=== PATIENT | female | born 1945 | race Caucasian/White ===

== ENCOUNTER 2021-11-14 15:17 | Outpatient (CLI) | payer MEDICARE, BC, SELFPAY ==
[2021-11-14 16:23] LABS: Basophils Percent Auto 0.5 % (0.0-3.0); Eosinophils Percent Auto 2.2 % (0.0-7.0); Hemoglobin* 10.3 gm/dL (12.0-16.0); Immature Granulocytes Abs Auto 0.11 K/uL (0.00-0.30); Lymphocytes Percent Auto 14.2 % (20-44); Mean Corpuscular HGB Conc 30 gm/dL (32-36); Mean Corpuscular Hemoglobin 28 pg (26-34); Mean Corpuscular Volume 93 fL (80-100); Monocytes Percent Auto 11.4 % (0.0-11.0); Neutrophils Percent Auto 70.8 % (42.0-72.0); Platelet Count* 349 K/uL (140-440); RDW Coefficient of Variation % 16.8 % (11.5-15.5); Red Blood Count 3.64 m/uL (4.00-5.20); White Blood Count* 11.99 K/uL (4.50-11.00)
[2021-11-14 16:39] LABS: Creatinine* 0.8 mg/dL (0.5-1.5); Estimated Glomerular Filt Rate 75.37
[2021-11-14 16:40] LABS: Aspartate Amino Transferase* 30 U/L (12-35); Slide Review Reflex No
[2021-11-18 13:37] LABS: Complement Component 3 107 mg/dL (90-180); Complement Component 4 7 mg/dL (10-40)
[2021-11-19 00:15] LABS: Complement Activity Total 56.2 U/mL (38.7-89.9)
== END 2021-11-14 15:18 | disposition home or self-care (01) ==
LOC: LAB 15:22
PROVIDERS: PCP Family Medicine; Visit Provider Family Medicine
DX: M06.4 Inflammatory polyarthropathy (principal)
CPT/HCPCS: 36415; 82565; 84450; 85025; 86160; 86162; 86225

== ENCOUNTER 2022-01-13 19:07 | Outpatient (CLI) | payer MEDICARE, BC, SELFPAY | END 2022-01-13 19:08 | disposition home or self-care (01) | LOC: NFLDREF 19:08 | PROVIDERS: PCP Family Medicine; Visit Provider Physician Assistant | DX: R10.9 Unspecified abdominal pain (principal) | CPT/HCPCS: 87086 ==

== ENCOUNTER 2022-02-10 16:06 | Outpatient (CLI) | payer MEDICARE, BC, SELFPAY ==
[2022-02-10 16:21] LABS: Albumin* 3.6 g/dL (3.3-5.0); Chloride* 102 mmol/L (96-114); Sodium* 135 mmol/L (135-149)
[2022-02-10 16:23] LABS: Bilirubin Total* 0.4 mg/dL (0.1-1.5); Carbon Dioxide* 27 mmol/L (20-32); Cholesterol* 121 mg/dL (90-199); Creatinine* 0.8 mg/dL (0.5-1.5); Estimated Glomerular Filt Rate 75 ml/min; Total Protein* 5.7 g/dL (6.0-8.3)
[2022-02-10 16:24] LABS: Alanine Aminotransferase* 20 U/L (4-35); Alkaline Phosphatase* 66 U/L (40-150); Aspartate Amino Transferase* 36 U/L (12-35); Blood Urea Nitrogen* 22 mg/dL (7-30); Calcium* 9.1 mg/dL (8.4-10.6); Glucose* 79 mg/dL (60-115); HDL Cholesterol* 60 mg/dL (>=50); LDL Cholesterol Calculated 44 mg/dL (<100); Triglycerides* 87 mg/dL (40-149)
[2022-02-10 17:41] LABS: Free T4 Free Thyroxine* 0.94 ng/dL (0.70-1.85)
== END 2022-02-10 16:07 | disposition home or self-care (01) ==
PROVIDERS: PCP Family Medicine; Visit Provider Family Medicine
DX: Z00.00 Encounter for general adult medical examination without abnormal findings (principal); E78.5 Hyperlipidemia, unspecified; E03.9 Hypothyroidism, unspecified; R53.1 Weakness; E87.6 Hypokalemia; R60.0 Localized edema; F32.A Depression, unspecified
CPT/HCPCS: 36415; 80053; 80061; 82565; 84439; 84443; 84450; 85025

== ENCOUNTER 2022-02-10 16:29 | Outpatient (RCR) | payer MEDICARE, BC, SELFPAY ==
[2022-02-10 20:45] LABS: Aspartate Amino Transferase* 35 U/L (12-35); Creatinine* 0.8 mg/dL (0.5-1.5); Estimated Glomerular Filt Rate 75 ml/min
[2022-02-10 21:05] LABS: Hematocrit 34.1 % (33.0-51.0); Hemoglobin* 10.2 gm/dL (12.0-16.0); Mean Corpuscular Hemoglobin 28 pg (26-34); Red Blood Count 3.61 m/uL (4.00-5.20); White Blood Count* 7.92 K/uL (4.50-11.00)
[2022-02-10 21:06] LABS: Basophils Percent Auto 0.8 % (0.0-3.0); Eosinophils Percent Auto 2.8 % (0.0-7.0); Lymphocytes Percent Auto 28.2 % (20-44); Mean Corpuscular HGB Conc 30 gm/dL (32-36); Mean Corpuscular Volume 95 fL (80-100); Monocytes Percent Auto 13.6 % (0.0-11.0); Neutrophils Percent Auto 54.1 % (42.0-72.0); Platelet Count* 271 K/uL (140-440); RDW Coefficient of Variation % 18.8 % (11.5-15.5)
[2022-02-10 21:07] LABS: Immature Granulocytes Pct Auto 0.5 %; Slide Review Reflex No
[2022-06-03 17:30] LABS: Basophils Percent Auto 0.4 % (0.0-3.0); Hematocrit 36.9 % (33.0-51.0); Hemoglobin* 11.2 gm/dL (12.0-16.0); Immature Granulocytes Pct Auto 0.2 %; Lymphocytes Percent Auto 14.2 % (20-44); Mean Corpuscular HGB Conc 30 gm/dL (32-36); Mean Corpuscular Hemoglobin 29 pg (26-34); Mean Corpuscular Volume 94 fL (80-100); Monocytes Percent Auto 11.1 % (0.0-11.0); Neutrophils Percent Auto 72.1 % (42.0-72.0); Platelet Count* 400 K/uL (140-440); RDW Coefficient of Variation % 18.8 % (11.5-15.5); Red Blood Count 3.92 m/uL (4.00-5.20); White Blood Count* 13.09 K/uL (4.50-11.00)
[2022-06-03 17:39] LABS: Slide Review Reflex No
[2022-06-03 19:01] LABS: Aspartate Amino Transferase* 70 U/L (12-35); Creatinine* 0.7 mg/dL (0.5-1.5); Estimated Glomerular Filt Rate 88 ml/min
[2022-09-17 17:19] LABS: Basophils Absolute Auto 0.04 K/uL (0.00-0.30); Basophils Percent Auto 0.4 % (0.0-3.0); Eosinophils Absolute Auto 0.24 K/uL (0.00-0.50); Eosinophils Percent Auto 2.7 % (0.0-7.0); Hematocrit 37.7 % (33.0-51.0); Hemoglobin* 11.2 gm/dL (12.0-16.0); Immature Granulocytes Abs Auto 0.01 K/uL (0.00-0.30); Immature Granulocytes Pct Auto 0.1 %; Lymphocytes Absolute Auto 1.83 K/uL (0.90-2.90); Lymphocytes Percent Auto 20.6 % (20-44); Mean Corpuscular HGB Conc 30 gm/dL (32-36); Mean Corpuscular Hemoglobin 29 pg (26-34); Mean Corpuscular Volume 99 fL (80-100); Monocytes Percent Auto 9.4 % (0.0-11.0); Neutrophils Absolute Auto 5.94 K/uL (1.7-7.0); Neutrophils Percent Auto 66.8 % (42.0-72.0); Platelet Count* 262 K/uL (140-440); RDW Coefficient of Variation % 18.4 % (11.5-15.5); Red Blood Count 3.81 m/uL (4.00-5.20)
[2022-09-17 17:27] LABS: Aspartate Amino Transferase* 46 U/L (12-35); Creatinine* 0.7 mg/dL (0.5-1.5); Estimated Glomerular Filt Rate 88 ml/min
[2022-09-17 17:36] LABS: Slide Review Reflex No
== END 2023-02-06 06:28 | disposition home or self-care (01) ==
LOC: LAB 16:29
PROVIDERS: PCP Family Medicine
DX: Z79.899 Other long term (current) drug therapy (principal); M06.4 Inflammatory polyarthropathy
CPT/HCPCS: 36415; 82565; 84450; 85025

== ENCOUNTER 2022-05-06 22:44 | Emergency (ER) | payer MEDICARE, BC, SELFPAY ==
[2022-05-06 23:14] LABS: Appearance Urine Clear (Clear); Bilirubin Urine Negative (Negative); Blood Urine 1+ (Negative); Color Urine Yellow (Yellow); Glucose Urine Negative (Negative); Ketones Urine Negative (Negative); Leukocyte Esterase Urine 2+ (Negative); Nitrite Urine Negative (Negative); Protein Urine Negative (Negative); Urobilinogen Urine 0.2 (0.2-1.0); pH Urine 7.5 (5.0-8.5)
[2022-05-06 23:20] VITALS: BP 142/84; PULSE 94; RESP 20; TEMP 36.7; O2SAT 99; BMI 30.3
[2022-05-06 23:31] LABS: Bacteria Urine Few; Mucus Urine Few; RBC Urine 0-2 (0-2); Squamous Epithelial Cell Urine Few (None-Few)
[2022-05-07 00:05] VITALS: BP 142/59; PULSE 93; RESP 18; O2SAT 94
--- NOTE | 2022-05-07 00:08 | ED.GENADULT ---
HPI - General Adult General Date Seen: 05/07/22 Chief complaint: Urogenital Problems, Female Stated complaint: UTI,sore left leg. Time Seen by Provider: 05/06/22 22:57 Source: patient and family Mode of arrival: ambulatory Limitations: no limitations History of Present Illness HPI narrative: Patient is a delightful 77-year-old female who suffers from rheumatoid arthritis and lupus who presents here with 2 problems 1 is some dysuria and frequency with urination and problem 2. He has some redness on her legs left greater than right, she has noted this for the last 3-4 days at least the redness, along with the dysuria and frequency she has not had any fevers or chills, she is worried that she may have cellulitis of her left leg. She is on Coumadin and is therapeutic with her last INR approximately 1 week ago at 2.4. 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 She has never had a DVT while she has been on Coumadin however. She denies any shortness of breath chest pain nausea vomiting, or anything else. She reports here with her daughter. Related Data Home Medications Medication Instructions Recorded Confirmed ascorbic acid (vitamin C) 500 mg 500 mg PO DAILY 01/13/22 02/12/22 tablet flaxseed oil 1,000 mg capsule 1 mg PO DAILY 01/13/22 02/12/22 folic acid 1 mg tablet 1 mg PO .Bedtime 01/13/22 02/12/22 hydroxychloroquine 200 mg tablet mg PO .Daily At 12:00PM 01/13/22 02/12/22 melatonin 3 mg capsule 3 mg PO .Bedtime as needed PRN 01/13/22 02/12/22 prednisone 1 mg tablet 7 mg PO DAILY 01/13/22 02/12/22 ascorbate calcium (vitamin C) 500 500 mg PO QDAY 02/12/22 02/12/22 mg tablet pediatric multivitamin 1 tab PO QDAY 02/12/22 02/12/22 Previous Rx's Medication Instructions Recorded estradiol 0.01% (0.1 mg/gram) 0.5 g vaginal QWEEK #42.5 grams 01/30/22 vaginal cream bupropion HCl 150 mg 24 hr tablet, 150 mg PO DAILY #90 tabs 02/12/22 extended release furosemide 40 mg tablet 40 mg PO DAILY #90 tabs 02/12/22 gabapentin 400 mg capsule 1,200 mg PO BID #540 caps 02/12/22 levothyroxine 25 mcg capsule 25 mcg PO QDAY #90 caps 02/12/22 loratadine 10 mg tablet 10 mg PO .Daily as needed PRN 02/12/22 allergic symptoms #90 tabs losartan 25 mg tablet 25 mg PO DAILY #90 tabs 02/12/22 magnesium oxide 400 mg (241.3 mg 400 mg PO .Daily At 12:00PM #90 02/12/22 magnesium) tablet tabs metoprolol succinate 25 mg 25 mg PO DAILY #90 tabs 02/12/22 tablet,extended release 24 hr omeprazole 20 mg capsule,delayed 20 mg PO DAILY #90 caps 02/12/22 release potassium chloride 10 mEq 10 meq PO BID #90 caps 02/12/22 capsule,extended release simvastatin 20 mg tablet 20 mg PO .Bedtime #90 tabs 02/12/22 warfarin 3 mg tablet 3 mg PO QDAY #72 tabs 03/18/22 hydrocodone 5 mg-acetaminophen 325 1 tab PO Q8H PRN pain #90 tabs 04/30/22 mg tablet Allergies Allergy/AdvReac Type Severity Reaction Status Date / Time amitriptyline Allergy Severe disorientat Verified 05/06/22 23:23 ion penicillin V Allergy Severe upset Verified 05/06/22 23:23 stomach and rash perphenazine Allergy Severe disorientat Verified 05/06/22 23:23 ion adhesive Allergy Unknown Unknown Verified 05/06/22 23:23 amoxicillin AdvReac Intermediate Diarrhea Verified 05/06/22 23:23 Tricyclic antidepressant Allergy Severe disorientat Uncoded 02/12/22 14:17 ion Bee venom Allergy Mild swells and Uncoded 02/12/22 14:17 area turns red Sulfa drugs Allergy Unknown Unknown Uncoded 02/12/22 14:17 Clavulanate AdvReac Intermediate Diarrhea Uncoded 02/12/22 14:17 Review of Systems Status of ROS: Reports: 10 or more systems reviewed and unremarkable except as noted in History and below [facility] Medical History Head injury with loss of consciousness History of deep vein thrombosis (DVT) of lower extremity (2016) History of peptic ulcer History of pulmonary embolism (2017) Irritation of right ear Knee osteoarthritis POLST (Physician Orders for Life-Sustaining Treatment) Surgical History History of cholecystectomy (05/12/10) History of colonoscopy (05/18/19) History of hysterectomy (04/11/10) History of left knee replacement (05/12/10) History of total hip replacement (05/12/10) S/P foot surgery, right (08/28/14) Status post cervical spinal arthrodesis (09/2017) Status post lumbar spinal fusion (04/11/10) 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 Smoking Status: Never smoker Second hand tobacco smoke exposure: No How often do you have a drink containing alcohol: never AUDIT-C Alcohol total score: 0 Non-prescribed substance use: denies use Little interest or pleasure in doing things: several days Feeling down, depressed, or hopeless: several days service: No Exam Narrative: Exam Narrative: Patient is seen in room 3 she is in no apparent distress, she is delightful, pupils equal round reactive to light TMs are normal oropharynx normal chest is clear heart sounds are normal, abdomen is soft no tenderness is elicited, no CVA tenderness, no organomegaly and bowel sounds are normal, her legs bilaterally show redness, to her mid thigh, that appears to be more chronic on both sides but there is a little bit induration on the left side, more on the medial side which may be or some early cellulitis. I do not see any indication, of significant swelling above this, and since that is bilaterally I think there is a low chance that this is related to a DVT. Const: Vital Signs, click to edit/add: Vital Signs - 24 hr 05/06/22 23:20 05/07/22 00:05 Temperature 98.0 F Pulse Rate [Right Pulse Oximeter] 94 93 Respiratory Rate 20 18 Blood Pressure [Ri ght Upper Arm] 142/84 H 142/59 H Pulse Oximetry 99 94 Oxygen Delivery Me thod Room Air Room Air Documenting provider has reviewed patient's vital signs: yes Course Vital Signs Vital signs: Initial Vital Signs Temperature 98.0 F 05/06/22 23:20 Temperature Source Temporal Artery Scan 05/06/22 23:20 Pulse Rate 94 05/06/22 23:20 Respiratory Rate 20 05/06/22 23:20 Blood Pressure 142/84 H 05/06/22 23:20 Blood Pressure Mean 103 05/06/22 23:20 Blood Pressure Position Supine 05/06/22 23:20 Pulse Oximetry 99 05/06/22 23:20 Oxygen Delivery Method 05/06/22 23:20 Vital Signs Temperature 98.0 F 05/06/22 23:20 Pulse Rate 94 05/06/22 23:20 Respiratory Rate 20 05/06/22 23:20 Blood Pressure 142/84 H 05/06/22 23:20 Pulse Oximetry 99 05/06/22 23:20 Oxygen Delivery Method 05/06/22 23:20 Temperature 98.0 F 05/06/22 23:20 Pulse Rate 93 05/07/22 00:05 Respiratory Rate 18 05/07/22 00:05 Blood Pressure 142/59 H 05/07/22 00:05 Pulse Oximetry 94 05/07/22 00:05 Oxygen Delivery Method 05/07/22 00:05 Medical Decision Making MDM Narrative Medical decision making narrative: I discussed with her that I do not think this is related to DVT, and given her recent INR, she likely is therapeutic and has not missed any doses. I think more likely that this is either chronic lymphedema, but the induration on the left side makes me more suspicious of cellulitis, given her relative immunosuppressant with the use of prednisone, methotrexate and Plaquenil I think coverage with Keflex, is appropriate, we will give this to her out of the machine, this will more than cover her possible urine source 2, although her urinalysis was relatively benign. She was very comfortable this plan, Lab Data Lab results reviewed: Yes I reviewed the patient's lab results Labs: Lab Results 05/06/22 Range/Units 22:55 Urine Color Yellow (Yellow) Urine Appearance Clear (Clear) Urine pH 7.5 (5.0-8.5) Ur Specific [place] 1.010 (1.000-1.030) Urine Protein Negative (Negative) Urine Glucose (UA) Negative (Negative) Urine Ketones Negative (Negative) Urine Blood 1+ A (Negative) Urine Nitrite Negative (Negative) Urine Bilirubin Negative (Negative) Urine Urobilinogen 0.2 (0.2-1.0) Ur Leukocyte Esterase 2+ A (Negative) Urine RBC 0-2 (0-2) Urine WBC 2-5 (0-5) Ur Squamous Epith Cells Few (None-Few) Urine Bacteria Few A (None) Urine Mucus Few A (None) Discharge Plan Discharge Clinical Impression: Cellulitis Patient Disposition: Home w/ Parent or Adult Condition: Stable Instructions: Cellulitis (ED) Additional Instructions: Home rest use of medications as directed, follow-up in 5-6 days with primary care for recheck. Return here if fevers chills, worsening pain. Prescriptions: No Action melatonin 3 mg capsule 3 mg PO .Bedtime as needed PRN hydroxychloroquine 200 mg tablet PO .Daily At 12:00PM folic acid 1 mg tablet 1 mg PO .Bedtime prednisone 1 mg tablet 7 mg PO DAILY ascorbic acid (vitamin C) 500 mg tablet 500 mg PO DAILY flaxseed oil 1,000 mg capsule 1 mg PO DAILY ascorbate calcium (vitamin C) 500 mg tablet 500 mg PO QDAY pediatric multivitamin Tablet,Chewable 1 tab PO QDAY bupropion HCl 150 mg tablet extended release 24 hr 150 mg PO DAILY Qty: 90 3RF furosemide 40 mg tablet 40 mg PO DAILY Qty: 90 3RF gabapentin 400 mg capsule 1,200 mg PO BID Qty: 540 3RF levothyroxine 25 mcg capsule 25 mcg PO QDAY Qty: 90 3RF loratadine 10 mg tablet 10 mg PO .Daily as needed PRN (Reason: allergic symptoms) Qty: 90 3RF losartan 25 mg tablet 25 mg PO DAILY Qty: 90 3RF magnesium oxide 400 mg (241.3 mg magnesium) tablet 400 mg PO .Daily At 12:00PM Qty: 90 3RF metoprolol succinate 25 mg tablet extended release 24 hr 25 mg PO DAILY Qty: 90 3RF omeprazole 20 mg capsule,delayed release(DR/EC) 20 mg PO DAILY Qty: 90 3RF potassium chloride 10 mEq capsule, extended release 10 meq PO BID Qty: 90 3RF simvastatin 20 mg tablet 20 mg PO .Bedtime Qty: 90 3RF estradiol 0.01 % (0.1 mg/gram) cream 0.5 g vaginal QWEEK Qty: 42.5 1RF Rx Instructions: Use nightly for two weeks, then decrease use to twice weekly for 2 weeks, then use once weekly. warfarin 3 mg tablet 3 mg PO QDAY Qty: 72 0RF Protocol: Dose Management Condition: Wednesday Dose/Route: 1.5 % Instruction: 0.5 x 3 % tablets Condition: Wednesday Dose/Route: 3 % Instruction: 1 x 3 % tablet Condition: Wednesday Dose/Route: 3 % Instruction: 1 x 3 % tablet Condition: Wednesday Dose/Route: 1.5 % Instruction: 0.5 x 3 % tablets Condition: Dose/Route: 3 % Instruction: 1 x 3 % tablet Condition: Wednesday Dose/Route: 3 % Instruction: 1 x 3 % tablet Condition: Wednesday Dose/Route: 1.5 % Instruction: 0.5 x 3 % tablets Protocol Text: Adjustment Start Date: Wednesday04/15/22 INR Value: 2.4 INR Date: 04/15/22 Recheck Date: 05/15/22 Rx Instructions: Take 1.5 mg on Wednesday/Wednesday and 3 mg the rest of the week hydrocodone-acetaminophen 5-325 mg tablet 1 tab PO Q8H PRN (Reason: pain) Qty: 90 0RF Follow Up/Referrals: Prakash Moore MD [Primary Care Provider] - Stand Alone Forms: [employer] Info Instructions
== END 2022-05-07 00:16 | disposition home or self-care (01) ==
LOC: ED 23:53
PROVIDERS: Emergency Provider Family Medicine; PCP Family Medicine
DX: L03.116 Cellulitis of left lower limb (principal)
CPT/HCPCS: 81001; 87086; 87186; 99283

== ENCOUNTER 2023-02-25 14:14 | Outpatient (CLI) | payer MEDICARE, BC, SELFPAY ==
--- OUTSIDE RECORDS SUMMARY | 2023-02-28 17:29 | XMS_ITS | Continuity of Care Document ---
Author Name Unknown Organization [facility] Address [address] [place] [address] Phone Care Team Providers Care Waterworks Supervisor Name Role Phone Chase Snowden MD Unavailable Unavailable Allergies, Adverse Reactions, Alerts Substance Reaction Status Criticality Sulfa (Sulfonamide Antibiotics) Active No Information BEE STING KIT swelling Active No Information perphenazine disorientation Active No Informatio n PENICILLIN rash, upset stomach Active No Infor mation amitriptyline disorientation Active No Informati on latex psychotic episode following surg Active No Information Medications Medication Instructions Dosage Effective Dates (start - stop) Status Comments Tylenol Arthritis Pain 650 mg tablet,extended release take 2 tablet by oral route every 8 hours as needed swallowing whole with water. Do not break, crush, dissolve and/or chew. 1300 MG - Active LEVOTHYROXINE SODIUM (unknown strength) Not Available - Active WELLBUTRIN SR (unknown strength) Not Available - Active FOSAMAX (unknown strength) Not Available - Active XATMEP (unknown strength) Not Available - Active MELATONIN (unknown strength) Not Available - Active MUCINEX (unknown strength) Not Available - Active WARFARIN SODIUM (unknown strength) Not Available - Active POTASSIUM CHLORIDE (unknown strength) Not Available - Active METOPROLOL SUCCINATE (unknown strength) Not Available - Active FUROSEMIDE (unknown strength) Not Available - Active LOSARTAN-HYDROCHLOROTHIA ZIDE (unknown strength) Not Available - Active SIMVASTATIN (unknown strength) Not Available - Active OMEPRAZOLE (unknown strength) Not Available - Active HYDROXYCHLOROQUINE SULFATE (unknown strength) Not Available - Active CALCIUM WITH VITAMIN D3 (unknown strength) Not Available - Active AALIYAH (unknown strength) Not Available - Active FAMVIR (unknown strength) Not Available - Active ANIMAL SHAPES (unknown strength) Not Available - Active FISH OIL (unknown strength) Not Available - Active VITAMIN C (unknown strength) Not Available - Active PREDNISONE INTENSOL (unknown strength) Not Available - Active GABAPENTIN (unknown strength) Not Available - Active URO-MAG (unknown strength) Not Available - Active NORCO (unknown strength) Not Available - A ctive STANBACK ANALGESIC (unknown strength) Not Available - Active Procedures Procedure Date Office/Outpatient Visit,Est, Mod 2020 Office/Outpatient Visit,Est, Mod 2019 Office/Outpatient Visit,Est, Mod 2019 Office/Outpatient Visit,Est, Low 2018 Office/Outpatient Visit,Est, Low 2017 Postop Followup Visit Postop Followup Visit PA Assisted Spine/Skull Fusion (Occiput- C2) Neck Spine Fusion (Cerv,Below C2) (x3 MO D) Pa Assist Spine Fusion, Each Add'Lverteb ra Remove Neck Spine Lamina, 1-2 Segs (x 3 MOD) Pa Assist Insert Spine Seg Fix, Post,7-1 2 Seg Spine/Skull Fusion (Occiput-C2) 018 Neck Spine Fusion (Cerv,Below C2) Spine Fusion, Each Add'Lvertebra 2017 Remove Neck Spine Lamina, 1-2 Segs Insert Spine Seg Fix, Post,7-12 Seg Office/Outpatient Visit,Est, Mod 2017 [place] [facility] [place]/Outpatient Visit,Est, Mod 2011 Postop Followup Visit Remove Lumbar Spine Lamina, 1 Seg Pa Assist Remove Lumbar Spine Lamina, 1 Seg Office/Outpatient Visit,New, Mod 2011 X-Ray Exam Lwr Spine, Min 4 Views Advance Directives Directive Yes / No Effective Date File Name No Information Encounters Encounter Description Practice Location Reason(s) For Visit Diagnoses Date Provider Providers Copied on Encounter [facility], [address] [place] [address], [id number], [place] tel:[phone] No Information 1 Sp Stone. [facility], [address] [place] [address], [id number], [place]. [phone] [facility], [address] [place] [address], [id number], [place] tel:[phone] [facility] [place] Arthrodesis status 1 No Information Office/Outpa tient Visit,Est, Mod [facility], [address] [place] [address], [id number], [place] tel:[phone] [facility] [place] No Information No Information Referring Provider: Prakash Mccauley, [facility] [address] [place], [address]. tel:[phone] Office/Outpa tient Visit,Est, Mod [facility], [address] [place] [address], [id number], [place] tel:[phone] [facility] Arthrodesis status 0 Sp Stone. [facility], [facility] [address] [place] [address], [id number], [place]. tel:[phone] Referring Provider: Prakash Mccauley, [facility] [address] [place], [address]. tel:[phone] Office/Outpa tient Visit,Est, Mod [facility], [address] [place] [address], [id number], [place] tel:[phone] [facility] Kyphosis 0 Sp Stone. [facility], [facility] [address] [place] [address], [address], [id number], [place]. tel:[phone] Referring Provider: Prakash Mccauley, [facility] [address] [place], [address]. tel:[phone] Office/Outpa tient Visit,Est, Low [facility], [address], [place], [id number], [place] tel:[phone] [facility] [place] Arthrodesis status Sp Stone. [facility], [address] [place], [address], [id number], [place]. tel:[phone] Referring Provider: Prakash Mccauley, [facility] [address] [place], [address]. tel:[phone] Office/Outpa tient Visit,Est, Low [facility], [address], [place], [place], [id number], [place] tel:[phone] [facility] Encounter for other specified surgical aftercare Sp Stone. [facility], [address] [place] [address], [address], [id number], [place]. tel:[phone] Referring Provider: Prakash Mccauley, [facility] [address] [place], [address]. tel:[phone] [facility], [address] [place] [address], [id number], [place] tel:[phone] [facility] Encounter for other specified surgical aftercare Sp Stone. [facility], [address] [place] [address], [address], [id number], [place]. tel:[phone] Referring Provider: Prakash Mccauley, [facility] [address] [place], [address]. tel:[phone] [facility], [address] [place] [address], [id number], [place] tel:[phone] [facility] Encounter for other specified surgical aftercare Sp Stone. [facility], [address] [place], [address], [id number], [place]. tel:[phone] Referring Provider: Prakash Mccauley, [facility] [address] [place], [address]. tel:[phone] [facility], [address], [place], [place], [id number], [place] tel:[phone] [facility] No Information Chris Meneses. [facility], [address] [place] [address], [place], [address], [place]. tel:[phone] Referring Provider: Prakash Mccauley, [facility] [address] [place], [address]. tel:[phone] [facility], [address], [place], [place], [id number], [place] tel:[phone] [facility] No Information Sp Stone. [facility], [address] [place] [address], [address], [id number], [place]. tel:[phone] Referring Provider: Prakash Mccauley, [facility] [address] [place], [address]. tel:[phone] Office/Outpa tient Visit,Est, Mod [facility], [address] [place] [address], [id number], [place] tel:[phone] [facility] [place] Spinal stenosis, cervical region Sp Stone. [facility], [address] [place] [address], [address], [id number], [place]. tel:[phone] Referring Provider: Prakash Mccauley, [facility] [address] [place], [address]. tel:[phone] Office/Outpa tient Visit,New, Mod [facility], [address] [place] [address], [id number], [place] tel:[phone] [facility] [place] Postlaminect jasmine kyphosisSpin al stenosis, cervical regionArthro desis status No Information Referring Provider: Prakash Mccauley, [facility] [address] [place], [address]. tel:[phone] Office/Outpa tient Visit,Est, Mod Z [facility], [address] [facility], [place], [address], [place] tel:[phone] [facility] No Information No Information Referring Provider: Prakash Mccauley, [facility] [address] [place], [address]. tel:[phone] Z [facility], [address] [facility], [place], [address], [place] tel:[phone] [facility] No Information No Information Referring Provider: Prakash Mccauley, [facility] [address] [place], [address]. tel:[phone] [facility], [address] [facility], [place], [address], [place] tel:[phone] [facility] No Information No Information Referring Provider: Prakash Mccauley, [facility] [address] [place], [address]. tel:[phone] Z [facility], [address] [facility], [place], [address], [place] tel:[phone] [facility] LUPUS ERYTHEMATOSU SOsteopeniaA nxietyGERDCA TARACT NOS No Information Office/Outpa tient Visit,New, Mod Z [facility], [address] [facility], [place], [address], [place] tel:[phone] [facility] No Information No Information Referring Provider: Prakash Mccauley, [facility] [address] [place], [address]. tel:[phone] Family History Family Member Type Diagnosis Age At Onset Mother Problem (finding) hypothyroidism Father Problem (finding) Cancer, unknown Mother Problem (finding) hypertension Problem (finding) Family history of prost ate cancer Payers Payer name Insurance type Covered green party ID Avaa angus(s) [facility] [id number] Medicare [facility] [id number] Social History Type Description Quantity Date Captured Comments Sex Female Smoking Status No Information Chief Complaint And Reason For Visit No Information Reason For Referral Reason For Referral No Information History Of Present Illness Encounter Date Complaint History Of Prese nt Illness No Information Functional Status Date Functional Assessmen t No Information Instructions Date Instruction Additional Infor mation No Information Assessments Type Assessment Date No Information Patient Care Teams Name Effective Dates (start - stop) Status Members No Information
== END 2023-02-25 14:15 | disposition home or self-care (01) ==
LOC: NFLDREF 02-28 17:27
PROVIDERS: PCP Family Medicine; Referring Provider Family Medicine; Visit Provider Family Medicine
DX: R60.0 Localized edema (principal); M16.12 Unilateral primary osteoarthritis, left hip; M17.11 Unilateral primary osteoarthritis, right knee; M48.00 Spinal stenosis, site unspecified; F32.A Depression, unspecified; E03.9 Hypothyroidism, unspecified; Z91.09 Other allergy status, other than to drugs and biological substances; F41.9 Anxiety disorder, unspecified; I10 Essential (primary) hypertension; I42.0 Dilated cardiomyopathy; B37.2 Candidiasis of skin and nail; K21.9 Gastro-esophageal reflux disease without esophagitis; E87.6 Hypokalemia; E78.5 Hyperlipidemia, unspecified; D64.9 Anemia, unspecified; L40.9 Psoriasis, unspecified; D63.8 Anemia in other chronic diseases classified elsewhere
CPT/HCPCS: 80053; 80061; 84439; 84443

== ENCOUNTER 2023-03-23 11:53 | Outpatient (CLI) | payer MEDICARE, BC, SELFPAY ==
--- OUTSIDE RECORDS SUMMARY | 2023-03-24 16:21 | XMS_ITS | Continuity of Care Document ---
Author Name Unknown Organization [facility] Address [address] [place] [address] Phone Care Team Providers Care Obstetrics Gyn Name Role Phone Chase Snowden MD Unavailable [...] Seg Office/Outpatient Visit,Est, Mod 2017 Office/Outpatient Visit,New, [facility] [place] 2017 Office/Outpatient Visit,Est, Mod 2011 Postop Followup Visit Remove Lumbar Spine Lamina, 1 Seg Pa Assist Remove Lumbar Spine Lamina, 1 Seg Office/Outpatient Visit,New, Mod 2011 X-Ray Exam Lwr Spine, Min 4 Views Advance Directives Directive Yes / No Effective Date File Name No Information Encounters Encounter Description Practice Location Reason(s) For Visit Diagnoses Date Provider Providers Copied on Encounter [facility], [address] [place] [address], [id number], [place] tel:[phone] No Information 1 Sp Stone. [facility], [address] [place] [address], [id number], [place]. [phone] [facility], [address] [place] [address], [id number], [place] tel:[phone] [facility] Arthrodesis status 1 No Information Office/Outpa tient Visit,Est, Mod [facility], [address] [place] [address], [id number], [place] tel:[phone] [facility] [place] No Information No Information Referring Provider: Prakash Mccauley, [facility] [address] [place], [address]. tel:[phone] Office/Outpa tient Visit,Est, Mod [facility], [address] [place] [address], [id number], [place] tel:[phone] [facility] Arthrodesis status 0 Sp Stone. [facility], [facility] [address] [place] [address], [id number], [place]. tel:[phone] Referring Provider: Prakash Mccauley, [facility] [address] [place], [address]. tel:[phone] Office/Outpa tient Visit,Est, Mod [facility], [address] [place] [address], [id number], [place] tel:[phone] [facility] Kyphosis 0 Sp Stone. [facility], [facility] [address] [place] [address], [address], [id number], [place]. tel:[phone] Referring Provider: Prakash Mccauley, [facility] [address] [place], [address]. tel:[phone] Office/Outpa tient Visit,Est, Low [facility], [address], [place], [id number], [place] tel:[phone] [facility] Arthrodesis status Sp Stone. [facility], [address] [place], [address], [id number], [place]. tel:[phone] Referring Provider: Prakash Mccauley, [facility] [address] [place], [address]. tel:[phone] Office/Outpa tient Visit,Est, Low [facility], [address], [place], [place], [id number], [place] tel:[phone] [facility] Encounter for other specified surgical aftercare Sp Stone. [facility], [address] [place] [address], [address], [id number], [place]. tel:[phone] Referring Provider: Prakash Mccauley, [facility] [address] [place], [address]. tel:[phone] [facility], [address] [place] [address], [id number], [place] tel:[phone] [facility] Encounter for other specified surgical aftercare Sp Stone. [facility], [address] [place] [address], [address], [id number], [place]. tel:[phone] Referring Provider: Prakash Mccauley, [facility] [address] [place], [address]. tel:[phone] [facility], [address] [place] [address], [id number], [place] tel:[phone] [facility] Encounter for other specified surgical aftercare Sp Stone. [facility], [address] [place], [address], [id number], [place]. tel:[phone] Referring Provider: Prakash Mccauley, [facility] [address] [place], [address]. tel:[phone] [facility], [address], [place], [place], [id number], [place] tel:[phone] [facility] No Information Chris Meneses. [facility], [address] [place] [address], [place], [address], [place]. tel:[phone] Referring Provider: Prakash Mccauley, [facility] [address] [place], [address]. tel:[phone] [facility], [address], [place], [place], [id number], [place] tel:[phone] [facility] No Information Sp Stone. [facility], [address] [place] [address], [address], [id number], [place]. tel:[phone] Referring Provider: Prakash Mccauley, [facility] [address] [place], [address]. tel:[phone] Office/Outpa tient Visit,Est, Mod [facility], [address] [place] [address], [id number], [place] tel:[phone] [facility] Spinal stenosis, cervical region Sp Stone. [facility], [address] [place] [address], [address], [id number], [place]. tel:[phone] Referring Provider: Prakash Mccauley, [facility] [address] [place], [address]. tel:[phone] Office/Outpa tient Visit,New, Mod [facility], [address] [place] [address], [id number], [place] tel:[phone] [facility] Postlaminect jasmine kyphosisSpin al stenosis, cervical regionArthro desis status No Information Referring Provider: Prakash Mccauley, [facility] [address] [place], [address]. tel:[phone] Office/Outpa tient Visit,Est, Mod Z [facility], [address] [facility] [address], [place], [address], [place] tel:[phone] [facility] No Information No Information Referring Provider: Prakash Mccauley, [facility] [address] [place], [address]. tel:[phone] Z [facility], [address] [facility] [address], [place], [address], [place] tel:[phone] [facility] No Information No Information Referring Provider: Prakash Mccauley, [facility] [address] [place], [address]. tel:[phone] [facility], [address] [facility] [address], [place], [address], [place] tel:[phone] [facility] No Information No Information Referring Provider: Prakash Mccauley, [facility] [address] [place], [address]. tel:[phone] Z [facility], [address] [facility] [address], [place], [address], [place] tel:[phone] [facility] LUPUS ERYTHEMATOSU SOsteopeniaA nxietyGERDCA TARACT NOS No Information Office/Outpa tient Visit,New, Mod Z [facility], [address] [facility], [place], [address], [place] tel:[phone] [facility] No Information No Information Referring Provider: Prakash Mccauley, [facility] [address] [place], [address]. tel:[phone] Family History Family Member Type Diagnosis Age At Onset Mother Problem (finding) hypothyroidism Father Problem (finding) Cancer, unknown Mother Problem (finding) hypertension Problem (finding) Family history of prost ate cancer Payers Payer name Insurance type Covered libertarian ID Avaa angus(s) [facility] [id number] Medicare [facility] [id number] 1 Social History Type Description Quantity Date [...]
--- OUTSIDE RECORDS SUMMARY | 2023-03-24 22:21 | XMS_ITS | Continuity of Care Document ---
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 [facility] [place], [address] [place] [address], [id number], [place]. [phone] [facility], [address] [place] [address], [id number], [place] tel:[phone] [facility] - [place]ie Arthrodesis status 1 No Information Office/Outpa tient Visit,Est, Mod [facility], [address] [place] [address], [id number], [place] tel:[phone] [facility] - [place]ie No Information No Information Referring Provider: Prakash Mccauley, [facility] [address] [place], [address]. tel:[phone] Office/Outpa tient Visit,Est, Mod [facility], [address] [place] [address], [id number], [place] tel:[phone] [facility] Arthrodesis status 0 Sp Stone. [facility] [place], [facility] [address] [place] [address], [id number], [place]. tel:[phone] Referring Provider: Prakash Mccauley, [facility] [address] [place], [address]. tel:[phone] Office/Outpa tient Visit,Est, Mod [facility], [address] [place] [address], [id number], [place] tel:[phone] [facility] Kyphosis 0 Sp Stone. [facility] [place], [facility] [address] [place] [address], [address], [id number], [place]. tel:[phone] Referring Provider: Prakash Mccauley, [facility] [address] [place], [address]. tel:[phone] Office/Outpa tient Visit,Est, Low [facility], [address], [place], [id number], [place] tel:[phone] [facility] - [place] Arthrodesis status Sp Stone. [facility] [place], [address] [place], [address], [id number], [place]. tel:[phone] Referring Provider: Prakash Mccauley, [facility] [address] [place], [address]. tel:[phone] Office/Outpa tient Visit,Est, Low [facility], [address], [place], [place], [id number], [place] tel:[phone] [facility] Encounter for other specified surgical aftercare Sp Stone. [facility] [place], [address] [place] [address], [address], [id number], [place]. tel:[phone] Referring Provider: Prakash Mccauley, [facility] [address] [place], [address]. tel:[phone] [facility], [address] [place] [address], [id number], [place] tel:[phone] [facility] Encounter for other specified surgical aftercare Sp Stone. [facility] [place], [address] [place] [address], [address], [id number], [place]. tel:[phone] Referring Provider: Prakash Mccauley, [facility] [address] [place], [address]. tel:[phone] [facility], [address] [place] [address], [id number], [place] tel:[phone] [facility] Encounter for other specified surgical aftercare Sp Stone. [facility] [place], [address] [place], [address], [id number], [place]. tel:[phone] Referring Provider: Prakash Mccauley, [facility] [address] [place], [address]. tel:[phone] [facility], [address], [place], [place], [id number], [place] tel:[phone] [facility] No Information Chris Meneses. [facility] [place], [address] [place] [address], [place], [address], [place]. tel:[phone] Referring Provider: Prakash Mccauley, [facility] [address] [place], [address]. tel:[phone] [facility], [address], [place], [place], [id number], [place] tel:[phone] [facility] No Information Sp Stone. [facility] [place], [address] [place] [address], [address], [id number], [place]. tel:[phone] Referring Provider: Prakash Mccauley, [facility] [address] [place], [address]. tel:[phone] Office/Outpa tient Visit,Est, Mod [facility], [address] [place] [address], [id number], [place] tel:[phone] [facility] - [place] Spinal stenosis, cervical region Sp Stone. [facility] [place], [address] [place] [address], [address], [id number], [place]. tel:[phone] Referring Provider: Prakash Mccauley, [facility] [address] [place], [address]. tel:[phone] Office/Outpa tient Visit,New, Mod [facility], [address] [place] [address], [id number], [place] tel:[phone] [facility] - [place] Postlaminect jasmine kyphosisSpin al stenosis, cervical regionArthro desis status No Information Referring Provider: Prakash Mccauley, [facility] [address] [place], [address]. tel:[phone] Office/Outpa tient Visit,Est, Mod Z [facility], [address], [place], [address], [place] tel:[phone] [facility] No Information No Information Referring Provider: Prakash Mccauley, [facility] [address] [place], [address]. tel:[phone] Z [facility], [address], [place], [address], [place] tel:[phone] [facility] No Information No Information Referring Provider: Prakash Mccauley, [facility] [address] [place], [address]. tel:[phone] [facility] [place], [address], [place], [address], [place] tel:[phone] [facility] No Information No Information Referring Provider: Prakash Mccauley, [facility] [address] [place], [address]. tel:[phone] Z [facility], [address], [place], [address], [place] tel:[phone] [facility] LUPUS ERYTHEMATOSU SOsteopeniaA nxietyGERDCA TARACT NOS No Information Office/Outpa tient Visit,New, Mod Z [facility], [address], [place], [address], [place] tel:[phone] [facility] No Information No Information Referring Provider: Prakash Mccauley, [facility] [address] [place], [address]. tel:[phone] Family History Family Member Type Diagnosis Age At Onset Mother Problem (finding) hypothyroidism Father Problem (finding) Cancer, unknown Mother Problem (finding) hypertension Problem (finding) Family history of prost ate cancer Payers Payer name Insurance type Covered green party ID Avaa angus(s) [facility] [id number] Medicare [facility] [id number] 1 Social History Type Description Quantity Date [...]
== END 2023-03-23 11:54 | disposition home or self-care (01) ==
LOC: AMB 03-24 22:20
PROVIDERS: PCP Family Medicine; Visit Provider Family Medicine
DX: R11.10 Vomiting, unspecified (principal)
CPT/HCPCS: A0425; A0427

== ENCOUNTER 2023-03-23 12:30 | Inpatient (IN) | payer MEDICARE, BC, SELFPAY ==
[2023-03-23] VITALS (24 sets, daily range): BP systolic 99–161; BP diastolic 49–98; PULSE 104–122; RESP 16–20; TEMP 36.5–37.2; O2SAT 86–98; BMI 32.8; BMI 25.1
--- NOTE | 2023-03-23 12:41 | ED_ITS ---
HPI - General Adult General Time Seen by Provider: 12:41 Date Seen: 03/23/23 Chief complaint: Nausea/Vomiting Stated complaint: vomiting Time Seen by Provider: 03/23/23 12:39 History of Present Illness HPI narrative: This is a 77-year-old female with a complex past medical history brought to the ER today from her assisted living by EMS. She has been sick with greenish/dark vomit that began yesterday evening and persisted throughout the night and into this morning. No diarrhea. She has had some chills and shivers but no definite fevers. No abdominal pain. No chest pain. No trouble breathing. She has a complex past medical history. She has a history of DVT and she is on Coumadin. She has a history of lupus and autoimmune diseases and has chronic prednisone listed as a medical problem, secondary adrenal insufficiency. Adv anced osteoarthritis hando chronic pain, spinal stenosis, scoliosis, Yeast dermatitis, urinary tract infections, physical deconditioning, peripheral edema, osteopenia, dilated cardiomyopathy, dilated bile duct, depression, colitis, anxiety. EMS indicates that she has advanced directives indicating that she is DNR/DNI. Related Data Home Medications Medication Instructions Recorded Confirmed flaxseed oil 1,000 mg capsule 1 mg PO DAILY 01/13/22 03/23/23 folic acid 1 mg tablet 1 mg PO HS 01/13/22 03/23/23 hydroxychloroquine 200 mg tablet mg PO .Daily At 12:00PM 01/13/22 02/25/23 melatonin 3 mg capsule 3 mg PO .Bedtime as needed PRN 01/13/22 03/23/23 prednisone 1 mg tablet 2 mg PO DAILY 01/13/22 03/23/23 ascorbate calcium (vitamin C) 500 500 mg PO QDAY 02/12/22 03/23/23 mg tablet pediatric multivitamin 1 tab PO QDAY 02/12/22 03/23/23 nystatin 100,000 unit/gram topical 1 applic topical BID PRN 06/03/22 03/23/23 powder ([facility]) levothyroxine 25 mcg capsule 25 mcg PO DAILY 03/23/23 03/23/23 methotrexate sodium 2.5 mg tablet 15 mg PO TH@09 03/23/23 03/23/23 nicotine (polacrilex) 2 mg gum 2 mg buccal Q2-4H PRN 03/23/23 03/23/23 nystatin 100,000 unit/gram topical 1 applic topical TID PRN 03/23/23 03/23/23 cream prednisone 5 mg tablet 5 mg PO DAILY 03/23/23 03/23/23 Previous Rx's Medication Instructions Recorded estradiol 0.01% (0.1 mg/gram) 0.5 g vaginal QWEEK #42.5 grams 01/30/22 vaginal cream hydrocodone 5 mg-acetaminophen 325 1 tab PO Q8H PRN pain #90 tabs 12/29/22 mg tablet warfarin 3 mg tablet 3 mg PO QDAY #72 tabs 01/06/23 bupropion HCl 150 mg 24 hr tablet, 150 mg PO DAILY #90 tabs 02/25/23 extended release clobetasol 0.05 % topical cream 1 applic topical BID 2 weeks #15 02/25/23 grams fluconazole 150 mg tablet 150 mg PO QWEEK #12 tabs 02/25/23 furosemide 40 mg tablet 40 mg PO DAILY #90 tabs 02/25/23 gabapentin 400 mg capsule 1,200 mg (3 x 400 mg) PO BID #540 02/25/23 caps iron,carbonyl 65 mg-vitamin C 125 1 tab PO QDAY #90 tabs 02/25/23 mg tablet,delayed release (Vitron-C) loratadine 10 mg tablet 10 mg PO .Daily as needed PRN 02/25/23 allergic symptoms #90 tabs losartan 25 mg tablet 25 mg PO DAILY #90 tabs 02/25/23 magnesium oxide 400 mg (241.3 mg 400 mg PO .Daily At 12:00PM #90 02/25/23 magnesium) tablet tabs metoprolol succinate 25 mg 25 mg PO DAILY #90 tabs 02/25/23 tablet,extended release 24 hr omeprazole 20 mg capsule,delayed 20 mg PO DAILY #90 caps 02/25/23 release potassium chloride 10 mEq 10 meq PO BID #180 caps 02/25/23 capsule,extended release simvastatin 20 mg tablet 20 mg PO .Bedtime #90 tabs 02/25/23 Allergies Allergy/AdvReac Type Severity Reaction Status Date / Time amitriptyline Allergy Severe disorientat Verified 03/23/23 12:55 ion penicillin V Allergy Severe upset Verified 02/25/23 12:46 stomach and rash perphenazine Allergy Severe disorientat Verified 02/25/23 12:46 ion adhesive Allergy Unknown Unknown Verified 02/25/23 12:46 amoxicillin AdvReac Intermediate Diarrhea Verified 02/25/23 12:46 Tricyclic antidepressant Allergy Severe disorientat Uncoded 02/25/23 12:46 ion Bee venom Allergy Mild swells and Uncoded 02/25/23 12:46 area turns red Sulfa drugs Allergy Unknown Unknown Uncoded 02/25/23 12:46 Clavulanate AdvReac Intermediate Diarrhea Uncoded 02/25/23 12:46 [facility] Medical History (Updated 03/23/23 @ 20:33 by Nick Garcia MD) Anemia ?D64.9 - Anemia, unspecified (ICD-10) Psoriasis ?L40.9 - Psoriasis, unspecified (ICD-10) Anemia ?D64.9 - Anemia, unspecified (ICD-10) Yeast dermatitis ?B37.2 - Candidiasis of skin and nail (ICD-10) Left leg cellulitis ?L03.116 - Cellulitis of left lower limb (ICD-10) Environmental allergies ?Z91.09 - Other allergy status, other than to drugs and biological substances (ICD-10) Osteoarthritis of left hip ?M16.12 - Unilateral primary osteoarthritis, left hip (ICD-10) Osteoarthritis of right knee ?M17.11 - Unilateral primary osteoarthritis, right knee (ICD-10) Osteoarthritis of right shoulder ?M19.011 - Primary osteoarthritis, right shoulder (ICD-10) Urethral caruncle ?N36.2 - Urethral caruncle (ICD-10) Weakness ?R53.1 - Weakness (ICD-10) Urinary tract infection ?N39.0 - Urinary tract infection, site not specified (ICD-10) Unsteady gait ?R26.81 - Unsteadiness on feet (ICD-10) Tubular adenoma ?D36.9 - Benign neoplasm, unspecified site (ICD-10) Systemic lupus erythematosus ?M32.9 - Systemic lupus erythematosus, unspecified (ICD-10) Spinal stenosis ?M48.00 - Spinal stenosis, site unspecified (ICD-10) 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 (ICD-10) Seasonal allergic rhinitis (01/27/12) ?J30.2 - Other seasonal allergic rhinitis (ICD-10) Scoliosis (01/27/12) ?M41.9 - Scoliosis, unspecified (ICD-10) Right shoulder pain ?M25.511 - Pain in right shoulder (ICD-10) Pyelonephritis ?N12 - Tubulo-interstitial nephritis, not specified as acute or chronic (ICD- 10) Positive colorectal cancer screening using DNA-based stool test ?R19.5 - Other fecal abnormalities (ICD-10) Physician Orders for Life-Sustaining Treatment (09/28/17) ?Z78.9 - Other specified health status (ICD-10) Physical deconditioning ?R53.81 - Other malaise (ICD-10) Physical debility ?R53.81 - Other malaise (ICD-10) Peripheral edema (05/12/10) ?R60.9 - Edema, unspecified (ICD-10) Osteopenia (05/26/11) ?M85.80 - Other specified disorders of bone density and structure, unspecified site (ICD-10) Nonspecific colitis ?K52.9 - Noninfective gastroenteritis and colitis, unspecified (ICD-10) Long-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 - Immunodeficiency due to drugs (ICD-10) ?T38.0X5A - Adverse effect of glucocorticoids and synthetic analogues, initial encounter (ICD-10) ?Z79.52 - buttermaker continuous churn (current) use of systemic steroids (ICD-10) Hypokalemia ?E87.6 - Hypokalemia (ICD-10) Hypertension (08/16/12) ?I10 - Essential (primary) hypertension (ICD-10) Hyperlipidemia ?E78.5 - Hyperlipidemia, unspecified (ICD-10) High C-reactive protein ?R79.82 - Elevated C-reactive protein (CRP) (ICD-10) Health care directive on file (07/05/15) ?Z78.9 - Other specified health status (ICD-10) Gastroesophageal reflux disease (04/11/10) ?K21.9 - Gastro-esophageal reflux disease without esophagitis (ICD-10) Dilated cardiomyopathy (05/12/10) ?I42.0 - Dilated cardiomyopathy (ICD-10) Dilated bile duct ?K83.8 - Other specified diseases of biliary tract (ICD-10) Depression (08/16/12) ?F32.A - Depression, unspecified (ICD-10) Constipation ?K59.00 - Constipation, unspecified (ICD-10) Colitis ?K52.9 - Noninfective gastroenteritis and colitis, unspecified (ICD-10) Chronic pain syndrome ?G89.4 - Chronic pain syndrome (ICD-10) Chronic pain ?G89.29 - Other chronic pain (ICD-10) Cellulitis ?L03.90 - Cellulitis, unspecified (ICD-10) Atrial fibrillation with rapid ventricular response ?I48.91 - Unspecified atrial fibrillation (ICD-10) Anxiety (04/11/10) ?F41.9 - Anxiety disorder, unspecified (ICD-10) Anticoagulation goal of INR 2 to 3 ?Z51.81 - Encounter for therapeutic drug level monitoring (ICD-10) ?Z79.01 - shelter (current) use of anticoagulants (ICD-10) Anemia of chronic disease ?D63.8 - Anemia in other chronic diseases classified elsewhere (ICD-10) Abnormal liver function tests ?R79.89 - Other specified abnormal findings of blood chemistry (ICD-10) Hypothyroidism ?E03.9 - Hypothyroidism, unspecified (ICD-10) Long-term (current) use of anticoagulants, INR goal 2.0-3.0 ?Z79.01 - shelter (current) use of anticoagulants (ICD-10) Knee osteoarthritis ?M17.10 - Unilateral primary osteoarthritis, unspecified knee (ICD-10) POLST (Physician Orders for Life-Sustaining Treatment) ?Z78.9 - Other specified health status (ICD-10) Irritation of right ear ?H93.8X1 - Other specified disorders of right ear (ICD-10) History of pulmonary embolism (2017) ?Z86.711 - Personal history of pulmonary embolism (ICD-10) History of peptic ulcer ?Z87.11 - Personal history of peptic ulcer disease (ICD-10) History of deep vein thrombosis (DVT) of lower extremity (2017) ?Z86.718 - Personal history of other venous thrombosis and embolism (ICD-10) Head injury with loss of consciousness ?S06.9X9A - Unspecified intracranial injury with loss of consciousness of unspecified duration, initial encounter (ICD-10) Surgical History S/P foot surgery, right (08/28/14) ?Z98.890 - Other specified postprocedural states (ICD-10) 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) ?Z96.619 - Presence of unspecified artificial shoulder joint (ICD-10) Status post lumbar spinal fusion (04/11/10) ?Z98.1 - Arthrodesis status (ICD-10) Status post cervical spinal arthrodesis (09/2017) ?Z98.1 - Arthrodesis status (ICD-10) History of total hip replacement (05/12/10) ?Z96.649 - Presence of unspecified artificial hip joint (ICD-10) History of left knee replacement (05/12/10) ?Z96.652 - Presence of left artificial knee joint (ICD-10) History of hysterectomy (04/11/10) ?Z90.710 - Acquired absence of both cervix and uterus (ICD-10) History of colonoscopy (05/18/19) ?Z98.890 - Other specified postprocedural states (ICD-10) History of cholecystectomy (05/12/10) ?Z90.49 - Acquired absence of other specified parts of digestive tract (ICD- 10) Family History Brother Coronary artery disease Father Cancer Social History (Updated 03/23/23 @ 20:24 by Nick Garcia MD) Narrative: Patient lives at [facility]. Code status is DNR. Healthcare power of insurance defense attorney is her daughter Giselle from [place]. She quit smoking many years ago. Has been chewing nicotine gum sin ce then. She does not drink alcohol What is your current living situation?: I presently have a place to live Problems where you live: no known problems Problems where you live details: no known problems In the past 12 months, utilities in danger of being shut off: no In past 12 months, lack of transportation kept you from medical appts, meetings, work, or getting things needed for daily living: no In the past 12 mos, have been you worried that your food would run out before you had money to buy more?: never true In the past 12 mos, the food you bought just didn't last and you didn't have money to buy more?: never true Highest level of school completed/degree received: 12th grade, no diploma Smoking Status: Never smoker Second hand tobacco smoke exposure: No How often do you have a drink containing alcohol: never How often do you have six or more drinks on one occasion: Never AUDIT-C Alcohol total score: 0 Non-prescribed substance use: denies use Caffeine: Yes How often does anyone, including family, friends and others, physically hurt you : never How often does anyone, including family, friends and others, insult or talk down to you: never How often does anyone, including family, friends and others, threaten you with harm: never How often does anyone, including family, friends and others, scream or curse at you: never Little interest or pleasure in doing things: several days Feeling down, depressed, or hopeless: more than half the days service: No Exam Const: Vital Signs, click to edit/add: Vital Signs - 24 hr 03/23/23 12:47 03/23/23 13:50 03/23/23 14:00 Temperature 97.7 F Pulse Rate 108 H 104 H Pulse Rate [Pulse Oximeter] 108 H Respiratory Rate 20 Blood Pressure Blood Pressure [Le ft Upper Arm] 152/81 H Pulse Oximetry 96 89 [facility] 03/23/23 14:15 03/23/23 14:30 03/23/23 14:45 Temperature Pulse Rate 115 H 106 H 105 H Pulse Rate [Pulse Oximeter] Respiratory Rate Blood Pressure Blood Pressure [Le ft Upper Arm] Pulse Oximetry 86 L 97 97 [facility] 03/[facility]/23 14:46 03/23/23 15:00 03/23/23 15:01 Temperature Pulse Rate 107 H 108 H 107 H Pulse Rate [Pulse Oximeter] Respiratory Rate Blood Pressure 133/74 156/79 H Blood Pressure [Le ft Upper Arm] Pulse Oximetry 98 93 93 [facility] 03/23/23 15:02 03/23/23 15:15 03/23/23 15:30 Temperature Pulse Rate 106 H 107 H 106 H Pulse Rate [Pulse Oximeter] Respiratory Rate Blood Pressure Blood Pressure [Le ft Upper Arm] Pulse Oximetry 94 92 94 Oxygen Delivery Me thod 03/23/23 15:31 03/23/23 15:45 03/23/23 16:00 Temperature Pulse Rate 107 H 105 H 109 H Pulse Rate [Pulse Oximeter] Respiratory Rate Blood Pressure 144/90 H Blood Pressure [Le ft Upper Arm] Pulse Oximetry 93 97 93 Oxygen Delivery Me thod 03/23/23 16:01 03/23/23 16:15 03/23/23 16:30 Temperature Pulse Rate 106 H 110 H 111 H Pulse Rate [Pulse Oximeter] Respiratory Rate Blood Pressure 126/98 H Blood Pressure [Le ft Upper Arm] Pulse Oximetry 95 96 94 Oxygen Delivery Me thod 03/23/23 16:33 03/23/23 16:45 03/23/23 17:00 Temperature Pulse Rate 113 H 112 H 115 H Pulse Rate [Pulse Oximeter] Respiratory Rate Blood Pressure 161/75 H Blood Pressure [Le ft Upper Arm] Pulse Oximetry 95 92 93 Oxygen Delivery Me thod 03/23/23 17:01 03/23/23 19:07 03/23/23 19:07 Temperature 98.0 F Pulse Rate 114 H Pulse Rate [Pulse Oximeter] Respiratory Rate 20 20 Blood Pressure 143/73 H Blood Pressure [Le ft Upper Arm] Pulse Oximetry 95 95 95 Oxygen Delivery Me thod Room Air Room Air Course Vital Signs Vital signs: Initial Vital Signs Temperature 97.7 F 03/23/23 12:47 Temperature Source Temporal Artery Scan 03/23/23 12:47 Pulse Rate 108 H 03/23/23 12:47 Respiratory Rate 20 03/23/23 12:47 Blood Pressure 152/81 H 03/23/23 12:47 Blood Pressure Mean 104 03/23/23 12:47 Blood Pressure Position Semi-Fowlers 03/23/23 12:47 Pulse Oximetry 96 03/23/23 12:47 Oxygen Delivery Method Room Air 03/23/23 12:47 Vital Signs Temperature 97.7 F 03/23/23 12:47 Pulse Rate 108 H 03/23/23 12:47 Respiratory Rate 20 03/23/23 12:47 Blood Pressure 152/81 H 03/23/23 12:47 Pulse Oximetry 96 03/23/23 12:47 Oxygen Delivery Method Room Air 03/23/23 12:47 Temperature 98.0 F 03/23/23 19:07 Pulse Rate 114 H 03/23/23 17:01 Respiratory Rate 20 03/23/23 19:07 Blood Pressure 143/73 H 03/23/23 17:01 Pulse Oximetry 95 03/23/23 19:07 Oxygen Delivery Method Room Air 03/23/23 19:07 Medications Administered Medications: Generic Name Dose Route Start Last Admin Trade Name Prem PRN Reason Stop Dose Admin Hydrocodone Bitart/Acetaminophen 1 tab 03/23/23 19:56 03/23/23 20:16 Hydrocodone-Acetamin 5-325 Mg 1 Tab PO 1 tab Q8H PRN Administration pain Ascorbic Acid 500 mg 03/23/23 20:11 03/23/23 20:37 Ascorbic Acid 500 Mg Tablet PO Not Given DAILY LUIS Folic Acid 1 mg 03/23/23 21:00 03/23/23 20:37 Folic Acid 1 Mg Tablet PO Not Given HS LUIS Lactated Ringer's 1,000 mls @ 75 mls/hr 03/23/23 20:05 03/23/23 21:19 Lactated Ringers 1000 Ml IV Not Given .[id number] LUIS Omeprazole 40 mg 03/23/23 21:00 03/23/23 20:37 Omeprazole [address] PO Not Given BID LUIS Ondansetron HCl 4 mg 03/23/23 19:41 03/23/23 20:16 Ondansetron 2 Mg/Ml Inj IVP 4 mg Q4H PRN Administration Nausea Potassium Chloride 10 meq 03/23/23 21:00 03/23/23 20:37 Potassium Chloride 10 Meq Capsule Er PO Not Given BID LUIS Simvastatin 20 mg 03/23/23 21:00 03/23/23 20:37 Simvastatin 20 Mg Tablet PO Not Given BEDTIME LUIS Sodium Chloride 5 ml 03/23/23 21:00 03/23/23 20:37 Sodium Chloride 0.9 % (Flush) 10 Ml Syringe IVF Not Given BID LUIS Discontinued Medications Generic Name Dose Route Start Last Admin Trade Name Prem PRN Reason Stop Dose Admin Hydrocortisone Sodium Succinate 100 mg 03/23/23 16:29 03/23/23 16:41 Hydrocortisone Sod Succinate 50 Mg/Ml Inj IVP 03/23/23 16:30 100 mg ONCE ONE Administration Hydrocortisone Sodium Succinate 100 mg 03/23/23 19:36 03/23/23 20:16 Hydrocortisone Sod Succinate 50 Mg/Ml Inj IVP 03/23/23 19:37 100 mg ONCE ONE Administration Phytonadione 5 mg/ Sodium 50.5 mls @ 100 mls/hr 03/23/23 16:02 03/23/23 18:45 Chloride IVPB 03/23/23 16:32 Infused ONCE ONE Infusion Phytonadione 5 mg/ Sodium 50.5 mls @ 100 mls/hr 03/23/23 19:40 03/23/23 21:13 Chloride IVPB 03/23/23 20:10 100 mls/hr ONCE ONE Administration Lactated Ringer's 1,000 mls @ 500 mls/hr 03/23/23 19:41 03/23/23 20:17 Lactated Ringers 1000 Ml IV 03/23/23 21:40 500 mls/hr .Q2H LUIS Administration Lactated Ringer's 1,000 ml 03/23/23 12:47 03/23/23 14:37 Lactated Ringers 1000 Ml IV 03/23/23 12:48 1,000 ml ONCE ONE Administration Metoclopramide HCl 10 mg 03/23/23 16:29 03/23/23 16:42 Metoclopramide Hcl 5 Mg/Ml Inj IVP 03/23/23 16:30 10 mg ONCE ONE Administration Ondansetron HCl 4 mg 03/23/23 12:47 03/23/23 14:37 Ondansetron 2 Mg/Ml Inj IVP 03/23/23 12:48 4 mg ONCE ONE Administration Pantoprazole Sodium 40 mg 03/23/23 19:36 03/23/23 20:16 Pantoprazole Sodium 40 Mg Inj IVP 03/23/23 19:37 40 mg ONCE ONE Administration Medical Decision Making MDM Narrative Medical decision making narrative: 77-year-old female brought to the ER today from home by EMS for evaluation of repetitive dark green emesis that began overnight last night and persisted thr oughout the day today. She did have a couple of days the diarrhea couple of days ago but no diarrhea overnight. 1. GI. Vomiting was dark green. Concern was for possible bilious emesis suggesting of bowel obstruction. Fortunately CT scan shows evidence for enteritis but no definite obstruction or other immediate surgical emergency. Cause of enteritis unclear. Could be infectious. Lactic acid is normal which argues against ischemia. Lipase normal. LFTs normal. Biliary tree mildly dilated consistent with prior cholecystectomy. 2. Anemia. Patient is anemic with a hemoglobin 8.4. This is down from hemoglobin about 11 in February. The dark green emesis could result are present possible partially digested blood. At this point hemodynamics are stable, she is not symptomatic with anemia. Since hemoglobin is above 7 would hold off on transfusion for now. She is supratherapeutic on her INR at 6. Vitamin K ordered. With no definitive active bleeding would hold off on PCC for now. 3. Cardiac. Troponin is abnormal at 0.08. Suspect demand ischemia from dehydration, vomiting. 4. Renal. BUN is 40, creatinine 0.6. Could be pre renal/dehydration. Also rule out possible GI bleed. Sodium mildly low 132. Potassium mildly low at 3.3. COVID and flu negative. Patient received IV fluids here in the ER 90 Zofran. Still ongoing nausea. Reglan administered. Patient will require admission for IV fluids, symptomatic relief, careful monitoring, hemoglobin monitoring, and further care. Discussed with our hospitalist, Dr. Garcia, who graciously agrees to admit. Lab Data Labs: Lab Results 03/23/23 03/23/23 03/23/23 Range/Units 13:35 13:59 19:50 WBC 11.91 H (4.50-11.00) K/uL RBC 2.64 L (4.00-5.20) m/uL Hgb 8.1 L (12.0-16.0) gm/dL Hct 25.6 L (33.0-51.0) % MCV 97 (80-100) fL MCH 31 (26-34) pg MCHC 32 (32-36) gm/dL RDW Coeff of Rolo 15.7 H (11.5-15.5) % Plt Count 270 (140-440) K/uL Neut % (Auto) 86.0 H (42.0-72.0) % Lymph % (Auto) 7.3 L (20-44) % [place] % (Auto) 6.1 (0.0-11.0) % Eos % (Auto) 0.1 (0.0-7.0) % Baso % (Auto) 0.3 (0.0-3.0) % Neut # (Auto) 10.20 H (1.7-7.0) K/uL Lymph # (Auto) 0.90 (0.90-2.90) K/uL [place] # (Auto) 0.70 (0.00-0.90) K/UL Eos # (Auto) 0.00 (0.00-0.50) K/uL Baso # (Auto) 0.00 (0.00-0.30) K/uL Abs Immat Gran (auto) 0.00 (0.00-0.30) K/uL Imm/Tot Granulo (auto) 0.2 % INR 6.05 H* (0.91-1.10) Sodium 132 L (135-149) mmol/L Potassium 3.3 L (3.6-5.1) mmol/L Chloride 102 (96-114) mmol/L Carbon Dioxide 27 (20-32) mmol/L Anion Gap 3 L (7-15) mEq/L BUN 40 H (7-30) mg/dL Creatinine 0.6 (0.5-1.5) mg/dL Estimated Creat Clear 51.28 Estimated GFR 91 ml/min Glucose 154 H (60-115) mg/dL Lactate 1.7 (0.5-1.9) mmol/L Calcium 8.5 (8.4-10.6) mg/dL Total Bilirubin 0.5 (0.1-1.5) mg/dL AST 61 H (12-35) U/L ALT 34 (4-35) U/L Alkaline Phosphatase 66 (40-150) U/L Troponin I 0.08 H* (0.01-0.04) ng/mL Total Protein 6.1 (6.0-8.3) g/dL Albumin 3.5 (3.3-5.0) g/dL Lipase 29 (23-300) U/L Stool Occult Blood Positive A (Negative) SARS-CoV-2 (PCR) Negative SARS-CoV-2 (Negative) Influenza Type A (PCR) Negative PCR FLU A (Negative) Influenza Type B (PCR) Negative PCR FLU B (Negative) RSV (PCR) Negative PCR RSV (Negative) Blood Type A Positive Antibody Screen NEGATIVE 03/23/23 Range/Units 20:20 WBC 14.92 H (4.50-11.00) K/uL RBC 2.65 L (4.00-5.20) m/uL Hgb 8.2 L (12.0-16.0) gm/dL Hct 25.6 L (33.0-51.0) % MCV 97 (80-100) fL MCH 31 (26-34) pg MCHC 32 (32-36) gm/dL RDW Coeff of Rolo 16.0 H (11.5-15.5) % Plt Count 208 (140-440) K/uL Neut % (Auto) 93.0 H (42.0-72.0) % Lymph % (Auto) 3.0 L (20-44) % [place] % (Auto) 2.3 (0.0-11.0) % Eos % (Auto) 0.0 (0.0-7.0) % Baso % (Auto) 0.2 (0.0-3.0) % Neut # (Auto) 13.90 H (1.7-7.0) K/uL Lymph # (Auto) 0.40 L (0.90-2.90) K/uL [place] # (Auto) 0.30 (0.00-0.90) K/UL Eos # (Auto) 0.00 (0.00-0.50) K/uL Baso # (Auto) 0.00 (0.00-0.30) K/uL Abs Immat Gran (auto) 0.20 (0.00-0.30) K/uL Imm/Tot Granulo (auto) 1.5 % INR (0.91-1.10) Sodium (135-149) mmol/L Potassium (3.6-5.1) mmol/L Chloride (96-114) mmol/L Carbon Dioxide (20-32) mmol/L Anion Gap (7-15) mEq/L BUN (7-30) mg/dL Creatinine (0.5-1.5) mg/dL Estimated Creat Clear Estimated GFR ml/min Glucose (60-115) mg/dL Lactate (0.5-1.9) mmol/L Calcium (8.4-10.6) mg/dL Total Bilirubin (0.1-1.5) mg/dL AST (12-35) U/L ALT (4-35) U/L Alkaline Phosphatase (40-150) U/L Troponin I 0.13 H* (0.01-0.04) ng/mL Total Protein (6.0-8.3) g/dL Albumin (3.3-5.0) g/dL Lipase (23-300) U/L Stool Occult Blood (Negative) SARS-CoV-2 (PCR) (Negative) Influenza Type A (PCR) (Negative) Influenza Type B (PCR) (Negative) RSV (PCR) (Negative) Blood Type Antibody Screen Imaging Data CT scan - abdomen: Attestation: I have reviewed the pertinent imaging results. Radiologist's impression: IMPRESSION: 1. Circumferential bowel wall thickening and mucosal enhancement involving several loops of small bowel with minimal surrounding free fluid, suggestive of enteritis. No evidence of bowel obstruction. 2. Moderate biliary dilatation likely secondary to post cholecystectomy state. ECG Data Attestation: I personally reviewed and interpreted this ECG as follows: Interpretation: Sinus tach. Rate 104. Occasional premature ventricular complexes. ME 144 QRS axis normal axis. No pathologic Q-waves. ST segment/T wave: No ST segment elevation. T-wave inversion lead 1, 2, 3, AVF. No definite ST depression. QTc: 399 Discharge Plan Discharge Clinical Impression: Anemia, Enteritis, Supratherapeutic INR, Vomiting Patient Disposition: Admitted As Observation
--- NOTE | 2023-03-23 12:44 | CRLHL7_ITS ---
For Patients: As a result of the Century Cures Act, medical imaging exams and procedure reports are released immediately into your electronic medical record. You may view this report before your referring provider. If you have questions, please contact your health care provider. INDICATION: Bilious vomiting TECHNIQUE: CT abdomen and pelvis acquired with 77 cc Omnipaque 350 IV contrast. COMPARISON: CT abdomen/pelvis on 08/22/2021 FINDINGS: Lower chest: Cardiomegaly. Bibasilar atelectasis. Liver: Unremarkable. Normal in size and attenuation. No suspicious masses. Gallbladder and bile ducts: Status postcholecystectomy no stones or inflammation. Moderate biliary distension likely secondary to post cholecystectomy state. Pancreas: Unremarkable. No mass or inflammation. Spleen: Unremarkable. Normal in size. No masses. Adrenal glands: Unremarkable. No nodules. Kidneys: Unremarkable. No suspicious masses, stones, or hydronephrosis. GI tract: Circumferential bowel wall thickening and mucosal enhancement involving several loops of small bowel with minimal surrounding free fluid. No intra-abdominal abscess. Scattered colonic diverticula. Vasculature: Abdominal aorta is normal in caliber. Mesenteric arteries are patent. Calcific atherosclerosis of the aortoiliac system. Lymph nodes: No lymphadenopathy. Peritoneum/Abdominal Wall: Unremarkable. No sign of mass or infiltration. No free air or significant free fluid. Pelvis: Unremarkable. Bones: No acute abnormalities. Posterior spinal fusion construct and postsurgical changes of right total hip arthroplasty. 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 IMPRESSION: 1. Circumferential bowel wall thickening and mucosal enhancement involving several loops of small bowel with minimal surrounding free fluid, suggestive of enteritis. No evidence of bowel obstruction. 2. Moderate biliary dilatation likely secondary to post cholecystectomy state. Please note that all CT scans at this facility use dose modulation, iterative reconstruction, and/or weight-based dosing when appropriate to reduce radiation dose to as low as reasonably achievable. Dictated by Dale Robles MD @ 03/23/2023 2:38:53 PM (Electronically Signed)
--- OUTSIDE RECORDS SUMMARY | 2023-03-23 13:09 | XMS_ITS | Continuity of Care Document ---
Author Name Unknown Organization [facility] Address [address] [place] [address] Phone Care Team Providers Care Roll Trucker Name Role Phone Chase Snowden MD Unavailable [...] SR (unknown strength) Not Available - Active SIMVASTATIN (unknown strength) Not Available - Active LOSARTAN-HYDROCHLOROTHIA ZIDE (unknown strength) Not Available - Active FUROSEMIDE (unknown strength) Not Available - Active METOPROLOL SUCCINATE (unknown strength) Not Available - Active POTASSIUM CHLORIDE (unknown strength) Not Available - Active WARFARIN SODIUM (unknown strength) Not Available - Active MUCINEX (unknown strength) Not Available - Active MELATONIN (unknown strength) Not Available - Active XATMEP (unknown strength) Not Available - Active FOSAMAX (unknown strength) Not Available - Active STANBACK ANALGESIC (unknown strength) Not Available - Active NORCO (unknown strength) Not Available - A ctive URO-MAG (unknown strength) Not Available - Active GABAPENTIN (unknown strength) Not Available - Active PREDNISONE INTENSOL (unknown strength) Not Available - Active VITAMIN C (unknown strength) Not Available - Active FISH OIL (unknown strength) Not Available - Active ANIMAL SHAPES (unknown strength) Not Available - Active FAMVIR (unknown strength) Not Available - Active AALIYAH (unknown strength) Not Available - Active CALCIUM WITH VITAMIN D3 (unknown strength) Not Available - Active HYDROXYCHLOROQUINE SULFATE (unknown strength) Not Available - Active OMEPRAZOLE (unknown strength) Not Available - Active Procedures [...] Seg Office/Outpatient Visit,Est, Mod 2017 Office/Outpatient Visit,New, [facility] 2017 Office/Outpatient Visit,Est, Mod 2011 Postop Followup Visit Remove Lumbar Spine Lamina, 1 Seg Pa Assist Remove Lumbar Spine Lamina, 1 Seg Office/Outpatient Visit,New, Mod 2011 X-Ray Exam Lwr Spine, Min 4 Views Advance Directives Directive Yes / No Effective Date File Name No Information Encounters Encounter Description Practice Location Reason(s) For Visit Diagnoses Date Provider Providers Copied on Encounter [facility], [address] [place] [address], [id number], [place] tel:[phone] No Information 1 Sp Stone. [facility], [address] [place] [address], [id number], [place]. [phone] [facility], [address] [place] [address], [id number], [place] tel:[phone] [facility] [place] Arthrodesis status 1 No Information Office/Outpa tient Visit,Est, Mod [facility], [address] [place] [address], [id number], [place] tel:[phone] [facility] [place] No Information No Information Referring Provider: Prakash Mccauley, [facility] [address] [place], [address]. tel:[phone] Office/Outpa tient Visit,Est, Mod [facility], [address] [place] [address], [id number], [place] tel:[phone] [facility] Arthrodesis status 0 Sp Stone. [facility], [facility] [address] [place] [address], [id number], [place]. tel:[phone] Referring Provider: Prakash Mccauley, [facility] [address] [place], [address]. tel:[phone] Office/Outpa tient Visit,Est, Mod [facility], [address] [place] [address], [id number], [place] tel:[phone] [facility] Kyphosis 0 Sp Stone. [facility], [facility] [address] [place] [address], [address], [id number], [place]. tel:[phone] Referring Provider: Prakash Mccauley, [facility] [address] [place], [address]. tel:[phone] Office/Outpa tient Visit,Est, Low [facility], [address], [place], [id number], [place] tel:[phone] [facility] [place] Arthrodesis status pS Stone. [facility], [address] [place], [address], [id number], [place]. tel:[phone] Referring Provider: Prakash Mccauley, [facility] [address] [place], [address]. tel:[phone] Office/Outpa tient Visit,Est, Low [facility], [address], [place], [place], [id number], [place] tel:[phone] [facility] Encounter for other specified surgical aftercare Sp Stone. [facility], [address] [place] [address], [address], [id number], [place]. tel:[phone] Referring Provider: Prakash Mccauley, [facility] [address] [place], [address]. tel:[phone] [facility], [address] [place] [address], [id number], [place] tel:[phone] [facility] Encounter for other specified surgical aftercare Sp Stone. [facility], [address] [place] [address], [address], [id number], [place]. tel:[phone] Referring Provider: Prakash Mccauley, [facility] [address] [place], [address]. tel:[phone] [facility], [address] [place] [address], [id number], [place] tel:[phone] [facility] Encounter for other specified surgical aftercare Sp Stone. [facility], [address] [place], [address], [id number], [place]. tel:[phone] Referring Provider: Prakash Mccauley, [facility] [address] [place], [address]. tel:[phone] [facility], [address], [place], [place], [id number], [place] tel:[phone] [facility] No Information Chris Meneses. [facility], [address] [place] [address], [place], [address], [place]. tel:[phone] Referring Provider: Prakash Mccauley, [facility] [address] [place], [address]. tel:[phone] [facility], [address], [place], [place], [id number], [place] tel:[phone] [facility] No Information Sp Stone. [facility], [address] [place] [address], [address], [id number], [place]. tel:[phone] Referring Provider: Prakash Mccauley, [facility] [address] [place], [address]. tel:[phone] Office/Outpa tient Visit,Est, Mod [facility], [address] [place] [address], [id number], [place] tel:[phone] [facility] [place] Spinal stenosis, cervical region Sp Stone. [facility], [address] [place] [address], [address], [id number], [place]. tel:[phone] Referring Provider: Prakash Mccauley, [facility] [address] [place], [address]. tel:[phone] Office/Outpa tient Visit,New, Mod [facility], [address] [place] [address], [id number], [place] tel:[phone] [facility] [place] Postlaminect jasmine kyphosisSpin al stenosis, cervical regionArthro desis status No Information Referring Provider: Prakash Mccauley, [facility] [address] [place], [address]. tel:[phone] Office/Outpa tient Visit,Est, Mod Z [facility], [address] [facility] [address], [place], [address], [place] tel:[phone] [facility] No Information No Information Referring Provider: Prakash Mccauley, [facility] [address] [place], [address]. tel:[phone] Z [facility], [address] [facility] [address], [place], [address], [place] tel:[phone] [facility] No Information No Information Referring Provider: Prakash Mccauley, [facility] [address] [place], [address]. tel:[phone] [facility], [address] [facility] [address], [place], [address], [place] tel:[phone] [facility] No Information No Information Referring Provider: Prakash Mccauley, [facility] [address] [place], [address]. tel:[phone] Z [facility], [address] [facility] [address], [place], [address], [place] tel:[phone] [facility] LUPUS ERYTHEMATOSU SOsteopeniaA nxietyGERDCA TARACT NOS No Information Office/Outpa tient Visit,New, Mod Z [facility], [address] [facility] [address], [place], [address], [place] tel:[phone] [facility] No Information No Information Referring Provider: Prakash Mccauley, [facility] [address] [place], [address]. tel:[phone] Family History Family Member Type Diagnosis Age At Onset Mother Problem (finding) hypothyroidism Father Problem (finding) Cancer, unknown Mother Problem (finding) hypertension Problem (finding) Family history of prost ate cancer Payers Payer name Insurance type Covered alliance party ID Avaa angus(s) [facility] [id number] Medicare [facility] [id number] 1 Social History Type Description Quantity Date [...]
[2023-03-23 13:46] LABS: Basophils Percent Auto 0.3 % (0.0-3.0); Eosinophils Percent Auto 0.1 % (0.0-7.0); Hematocrit 25.6 % (33.0-51.0); Hemoglobin* 8.1 gm/dL (12.0-16.0); Immature Granulocytes Pct Auto 0.2 %; Lymphocytes Percent Auto 7.3 % (20-44); Mean Corpuscular HGB Conc 32 gm/dL (32-36); Mean Corpuscular Hemoglobin 31 pg (26-34); Mean Corpuscular Volume 97 fL (80-100); Monocytes Percent Auto 6.1 % (0.0-11.0); Platelet Count* 270 K/uL (140-440); RDW Coefficient of Variation % 15.7 % (11.5-15.5); Red Blood Count 2.64 m/uL (4.00-5.20); White Blood Count* 11.91 K/uL (4.50-11.00)
[2023-03-23 13:50] LABS: Slide Review Reflex No
[2023-03-23 13:58] LABS: Lactate* 1.7 mmol/L (0.5-1.9)
[2023-03-23 14:17] LABS: Chloride* 102 mmol/L (96-114)
[2023-03-23 14:18] LABS: Albumin* 3.5 g/dL (3.3-5.0); Potassium* 3.3 mmol/L (3.6-5.1); Sodium* 132 mmol/L (135-149)
[2023-03-23 14:20] LABS: Creatinine* 0.6 mg/dL (0.5-1.5); Est. Creatinine Clearance* 51.28; Estimated Glomerular Filt Rate 91 ml/min
[2023-03-23 14:21] LABS: Alanine Aminotransferase* 34 U/L (4-35); Alkaline Phosphatase* 66 U/L (40-150); Anion Gap 3 mEq/L (7-15); Aspartate Amino Transferase* 61 U/L (12-35); Bilirubin Total* 0.5 mg/dL (0.1-1.5); Blood Urea Nitrogen* 40 mg/dL (7-30); Calcium* 8.5 mg/dL (8.4-10.6); Carbon Dioxide* 27 mmol/L (20-32); Glucose* 154 mg/dL (60-115); Lipase* 29 U/L (23-300); Total Protein* 6.1 g/dL (6.0-8.3)
[2023-03-23 14:34] LABS: Troponin I* 0.08 ng/mL (0.01-0.04)
[2023-03-23] MEDS: LACTATED RINGERS 1000 ML IV (14:37)
[2023-03-23] MEDS: ONDANSETRON 2 MG/ML inj 4 MG IVP ×2 (14:37→20:16)
[2023-03-23 14:39] LABS: Prothrombin Time 58.9 Seconds
--- NOTE | 2023-03-23 14:41 | ED.NURSE ---
[facility] called about a critical INR 6.[address] Joyner
[2023-03-23 14:51] LABS: PCR FLU A Negative PCR FLU A (Negative); PCR FLU B Negative PCR FLU B (Negative); PCR RSV Negative PCR RSV (Negative)
[2023-03-23 14:52] LABS: SARS PCR* Negative SARS-CoV-2 (Negative)
[2023-03-23] MEDS: HYDROCORTISONE SOD SUCCINATE 50 MG/ML inj 100 MG IVP ×2 (16:41→20:16)
[2023-03-23] MEDS: METOCLOPRAMIDE HCL 5 MG/ML INJ 10 MG IVP (16:42)
[2023-03-23] MEDS: PHYTONADIONE (VIT K1) 5 MG in 0.9 % SODIUM CHLORIDE 50 ml 50 ML 100 MG IVPB ×2 (17:43→21:13)
--- NOTE | 2023-03-23 19:24 | PC.NURSE ---
Patient up to floor at 1715, med Bm black at bedside commode. VSS, denies pain.
[2023-03-23 20:00] LABS: Fecal Occult Blood* Positive (Negative)
--- NOTE | 2023-03-23 20:06 | PM.IMHP1 ---
Hospitalist- H&P: HPI History of Present Illness Date Seen: 03/23/23 Chief complaint: vomiting Narrative: Shilpi Frost is a 77 year old female with rheumatoid arthritis, SLE, cardiomyopathy, anticoagulation with warfarin who presents to the hospital with intractable vomiting for 2 days. She describes the emesis is dark green, not bloody or coffee-ground. She has been unable to keep down significant food or fluid in the last 2 days. She is not aware of having stools in the last day or 2 until this evening when she had a stool which the nurse noted was very dark. She is on warfarin with an INR of 6.0 today. Patient does not recall bleeding ulcers but her chart record indicates he had peptic ulcer disease on EGD in 2006. In June 2021 she did have an episode of colitis which was self-limited and not recurrent. She does have mild anemia of chronic disease. She has had a history of cholecystectomy, hysterectomy, colonoscopy in May of 2019. Review of Systems Narrative: She reports prior to the last 2 days she was generally feeling well. [facility] Medical History (Updated 03/23/23 @ 20:33 by Nick Garcia MD) Anemia ?D64.9 - Anemia, unspecified (ICD-10) Psoriasis ?L40.9 - Psoriasis, unspecified (ICD-10) Anemia ?D64.9 - Anemia, unspecified (ICD-10) Yeast dermatitis ?B37.2 - Candidiasis of skin and nail (ICD-10) Left leg cellulitis ?L03.116 - Cellulitis of left lower limb (ICD-10) Environmental allergies ?Z91.09 - Other allergy status, other than to drugs and biological substances (ICD-10) Osteoarthritis of left hip ?M16.12 - Unilateral primary osteoarthritis, left hip (ICD-10) Osteoarthritis of right knee ?M17.11 - Unilateral primary osteoarthritis, right knee (ICD-10) Osteoarthritis of right shoulder ?M19.011 - Primary osteoarthritis, right shoulder (ICD-10) Urethral caruncle ?N36.2 - Urethral caruncle (ICD-10) Weakness ?R53.1 - Weakness (ICD-10) Urinary tract infection ?N39.0 - Urinary tract infection, site not specified (ICD-10) Unsteady gait ?R26.81 - Unsteadiness on feet (ICD-10) Tubular adenoma ?D36.9 - Benign neoplasm, unspecified site (ICD-10) Systemic lupus erythematosus ?M32.9 - Systemic lupus erythematosus, unspecified (ICD-10) Spinal stenosis ?M48.00 - Spinal stenosis, site unspecified (ICD-10) 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81 - Other malaise (ICD-10) Physical debility ?R53.81 - Other malaise (ICD-10) Peripheral edema (05/12/10) ?R60.9 - Edema, unspecified (ICD-10) Osteopenia (05/26/11) ?M85.80 - Other specified disorders of bone density and structure, unspecified site (ICD-10) Nonspecific colitis ?K52.9 - Noninfective gastroenteritis and colitis, unspecified (ICD-10) Long-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 - Immunodeficiency due to drugs (ICD-10) ?T38.0X5A - Adverse effect of glucocorticoids and synthetic analogues, initial encounter (ICD-10) ?Z79.52 - prison (current) use of systemic steroids (ICD-10) Hypokalemia ?E87.6 - Hypokalemia (ICD-10) Hypertension (08/16/12) ?I10 - Essential (primary) hypertension (ICD-10) Hyperlipidemia ?E78.5 - Hyperlipidemia, unspecified (ICD-10) High C-reactive protein ?R79.82 - Elevated C-reactive protein (CRP) (ICD-10) Health care directive on file (07/05/15) ?Z78.9 - Other specified health status (ICD-10) Gastroesophageal reflux disease (04/11/10) ?K21.9 - Gastro-esophageal reflux disease without esophagitis (ICD-10) Dilated cardiomyopathy (05/12/10) ?I42.0 - Dilated cardiomyopathy (ICD-10) Dilated bile duct ?K83.8 - Other specified diseases of biliary tract (ICD-10) Depression (08/16/12) ?F32.A - Depression, unspecified (ICD-10) Constipation ?K59.00 - Constipation, unspecified (ICD-10) Colitis ?K52.9 - Noninfective gastroenteritis and colitis, unspecified (ICD-10) Chronic pain syndrome ?G89.4 - Chronic pain syndrome (ICD-10) Chronic pain ?G89.29 - Other chronic pain (ICD-10) Cellulitis ?L03.90 - Cellulitis, unspecified (ICD-10) Atrial fibrillation with rapid ventricular response ?I48.91 - Unspecified atrial fibrillation (ICD-10) Anxiety (04/11/10) ?F41.9 - Anxiety disorder, unspecified (ICD-10) Anticoagulation goal of INR 2 to 3 ?Z51.81 - Encounter for therapeutic drug level monitoring (ICD-10) ?Z79.01 - long term care administrator (current) use of anticoagulants (ICD-10) Anemia of chronic disease ?D63.8 - Anemia in other chronic diseases classified elsewhere (ICD-10) Abnormal liver function tests ?R79.89 - Other specified abnormal findings of blood chemistry (ICD-10) Hypothyroidism ?E03.9 - Hypothyroidism, unspecified (ICD-10) Long-term (current) use of anticoagulants, INR goal 2.0-3.0 ?Z79.01 - prison (current) use of anticoagulants (ICD-10) Knee osteoarthritis ?M17.10 - Unilateral primary osteoarthritis, unspecified knee (ICD-10) POLST (Physician Orders for Life-Sustaining Treatment) ?Z78.9 - Other specified health status (ICD-10) Irritation of right ear ?H93.8X1 - Other specified disorders of right ear (ICD-10) History of pulmonary embolism (2016) ?Z86.711 - Personal history of pulmonary embolism (ICD-10) History of peptic ulcer ?Z87.11 - Personal history of peptic ulcer disease (ICD-10) History of deep vein thrombosis (DVT) of lower extremity (2016) ?Z86.718 - Personal history of other venous thrombosis and embolism (ICD-10) Head injury with loss of consciousness ?S06.9X9A - Unspecified intracranial injury with loss of consciousness of unspecified duration, initial encounter (ICD-10) Surgical History S/P foot surgery, right (08/28/14) ?Z98.890 - Other specified postprocedural states (ICD-10) 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) ?Z96.619 - Presence of unspecified artificial shoulder joint (ICD-10) Status post lumbar spinal fusion (04/11/10) ?Z98.1 - Arthrodesis status (ICD-10) Status post cervical spinal arthrodesis (09/2017) ?Z98.1 - Arthrodesis status (ICD-10) History of total hip replacement (05/12/10) ?Z96.649 - Presence of unspecified artificial hip joint (ICD-10) History of left knee replacement (05/12/10) ?Z96.652 - Presence of left artificial knee joint (ICD-10) History of hysterectomy (04/11/10) ?Z90.710 - Acquired absence of both cervix and uterus (ICD-10) History of colonoscopy (05/18/19) ?Z98.890 - Other specified postprocedural states (ICD-10) History of cholecystectomy (05/12/10) ?Z90.49 - Acquired absence of other specified parts of digestive tract (ICD-10) Family History Brother Coronary artery disease Father Cancer Social History (Updated 03/23/23 @ 20:24 by Nick Garcia MD) Narrative: Patient lives at [facility]. Code status is DNR. Healthcare power of associate attorney is her daughter Giselle from [place]. She quit smoking many years ago. Has been chewing nicotine gum since then. She does not drink alcohol What is your current living situation?: I presently have a place to live Problems where you live: no known problems Problems where you live details: no known problems In the past 12 months, utilities in danger of being shut off: no In past 12 months, lack of transportation kept you from medical appts, meetings, work, or getting things needed for daily living: no In the past 12 mos, have been you worried that your food would run out before you had money to buy more?: never true In the past 12 mos, the food you bought just didn't last and you didn't have money to buy more?: never true Highest level of school completed/degree received: 12th grade, no diploma Smoking Status: Never smoker Second hand tobacco smoke exposure: No How often do you have a drink containing alcohol: never How often do you have six or more drinks on one occasion: Never AUDIT-C Alcohol total score: 0 Non-prescribed substance use: denies use Caffeine: Yes How often does anyone, including family, friends and others, physically hurt you: never How often does anyone, including family, friends and others, insult or talk down to you: never How often does anyone, including family, friends and others, threaten you with harm: never How often does anyone, including family, friends and others, scream or curse at you: never Little interest or pleasure in doing things: several days Feeling down, depressed, or hopeless: more than half the days service: No Meds Home Medications and Allergies Home Medications Medication Instructions Recorded Confirmed Type flaxseed oil 1,000 mg capsule 1 mg PO DAILY 01/13/22 03/23/23 History folic acid 1 mg tablet 1 mg PO HS 01/13/22 03/23/23 History hydroxychloroquine 200 mg tablet mg PO .Daily At 12:00PM 01/13/22 02/25/23 History melatonin 3 mg capsule 3 mg PO .Bedtime as needed PRN 01/13/22 03/23/23 History prednisone 1 mg tablet 2 mg PO DAILY 01/13/22 03/23/23 History ascorbate calcium (vitamin C) 500 500 mg PO QDAY 02/12/22 03/23/23 History mg tablet pediatric multivitamin 1 tab PO QDAY 02/12/22 03/23/23 History nystatin 100,000 unit/gram topical 1 applic topical BID PRN 06/03/22 03/23/23 History powder (Nyamyc) levothyroxine 25 mcg capsule 25 mcg PO DAILY 03/23/23 03/23/23 History methotrexate sodium 2.5 mg tablet 15 mg PO TH@09 03/23/23 03/23/23 History nicotine (polacrilex) 2 mg gum 2 mg buccal Q2-4H PRN 03/23/23 03/23/23 History nystatin 100,000 unit/gram topical 1 applic topical TID PRN 03/23/23 03/23/23 History cream prednisone 5 mg tablet 5 mg PO DAILY 03/23/23 03/23/23 History Allergies Allergy/AdvReac Type Severity Reaction Status Date / Time amitriptyline Allergy Severe disorientat Verified 03/23/23 12:55 ion penicillin V Allergy Severe upset Verified 02/25/23 12:46 stomach and rash perphenazine Allergy Severe disorientat Verified 02/25/23 12:46 ion adhesive Allergy Unknown Unknown Verified 02/25/23 12:46 amoxicillin AdvReac Intermediate Diarrhea Verified 02/25/23 12:46 Tricyclic antidepressant Allergy Severe disorientat Uncoded 02/25/23 12:46 ion Bee venom Allergy Mild swells and Uncoded 02/25/23 12:46 area turns red Sulfa drugs Allergy Unknown Unknown Uncoded 02/25/23 12:46 Clavulanate AdvReac Intermediate Diarrhea Uncoded 02/25/23 12:46 Exam Narrative: Exam Narrative: She is alert tired appearing but otherwise in no obvious distress. She has some edema and erythema of her eyelids. Globes are normal. Oropharynx is normal. No facial asymmetry. Neck is supple out mass or adenopathy. Respirations with occasional crackles noted. Otherwise clear to auscultation. Breathing is unlabored. Cardiovascular: S1, S2, relatively regular tachycardia. Abdomen: Bowel sounds are active. Abdomen is soft with mild diffuse tenderness especially in the epigastrium. There is no mass or peritonitis. External genitalia normal. Extremities with chronic skin changes from venous stasis disease. Diminished but present pedal pulses. She moves all 4 extremities. Chronic changes from rheumatoid arthritis particularly in her fingers and MCP joints of both hands Const: Vital Signs, click to edit/add: Vital Signs - 24 hr 03/23/23 12:47 03/23/23 13:50 03/23/23 14:00 Temperature 97.7 F Pulse Rate 108 H 104 H Pulse Rate [Pulse Oximeter] 108 H Respiratory Rate 20 Blood Pressure Blood Pressure [Le ft Upper Arm] 152/81 H Pulse Oximetry 96 89 95 Oxygen Delivery Me thod Room Air 03/23/23 14:15 03/23/23 14:30 03/23/23 14:45 Temperature Pulse Rate 115 H 106 H 105 H Pulse Rate [Pulse Oximeter] Respiratory Rate Blood Pressure Blood Pressure [Le ft Upper Arm] Pulse Oximetry 86 L 97 97 Oxygen Delivery Me thod 03/23/23 14:46 03/23/23 15:00 03/23/23 15:01 Temperature Pulse Rate 107 H 108 H 107 H Pulse Rate [Pulse Oximeter] Respiratory Rate Blood Pressure 133/74 156/79 H Blood Pressure [Le ft Upper Arm] Pulse Oximetry 98 93 93 Oxygen Delivery Me thod 03/23/23 15:02 03/23/23 15:15 03/23/23 15:30 Temperature Pulse Rate 106 H 107 H 106 H Pulse Rate [Pulse Oximeter] Respiratory Rate Blood Pressure Blood Pressure [Le ft Upper Arm] Pulse Oximetry 94 92 94 Oxygen Delivery Me thod 03/23/23 15:31 03/23/23 15:45 03/23/23 16:00 Temperature Pulse Rate 107 H 105 H 109 H Pulse Rate [Pulse Oximeter] Respiratory Rate Blood Pressure 144/90 H Blood Pressure [Le ft Upper Arm] Pulse Oximetry 93 97 93 Oxygen Delivery Me thod 03/23/23 16:01 03/23/23 16:15 03/23/23 16:30 Temperature Pulse Rate 106 H 110 H 111 H Pulse Rate [Pulse Oximeter] Respiratory Rate Blood Pressure 126/98 H Blood Pressure [Le ft Upper Arm] Pulse Oximetry 95 96 94 Oxygen Delivery Me thod 03/23/23 16:33 03/23/23 16:45 03/23/23 17:00 Temperature Pulse Rate 113 H 112 H 115 H Pulse Rate [Pulse Oximeter] Respiratory Rate Blood Pressure 161/75 H Blood Pressure [Le ft Upper Arm] Pulse Oximetry 95 92 93 Oxygen Delivery Me thod 03/23/23 17:01 03/23/23 19:07 03/23/23 19:07 Temperature 98.0 F Pulse Rate 114 H Pulse Rate [Pulse Oximeter] Respiratory Rate 20 20 Blood Pressure 143/73 H Blood Pressure [Le ft Upper Arm] Pulse Oximetry 95 95 95 Oxygen Delivery Me thod Room Air Room Air Documenting provider has reviewed patient's vital signs: yes Hospitalist - H&P: Result Labs Labs: Short CBC 11/14/23 Range/Units 13:35 WBC 11.91 H (4.50-11.00) K/uL Hgb 8.1 L (12.0-16.0) gm/dL Hct 25.6 L (33.0-51.0) % Plt Count 270 (140-440) K/uL BMP 03/23/23 13:35 Sodium 132 L Potassium 3.3 L Chloride 102 Carbon Dioxide 27 BUN 40 H Creatinine 0.6 Glucose 154 H Calcium 8.5 Cardiac Enzymes 03/23/23 Range/Units 13:35 Troponin I 0.08 H* (0.01-0.04) ng/mL Liver Function 03/23/23 Range/Units 13:35 Total Bilirubin 0.5 (0.1-1.5) mg/dL AST 61 H (12-35) U/L ALT 34 (4-35) U/L Alkaline Phosphatase 66 (40-150) U/L Albumin 3.5 (3.3-5.0) g/dL Imaging CT scan - abdomen: Radiologist's impression: INDICATION: Bilious vomiting TECHNIQUE: CT abdomen and pelvis acquired with 77 cc Omnipaque 350 IV contrast. COMPARISON: CT abdomen/pelvis on 08/22/2021 FINDINGS: Lower chest: Cardiomegaly. Bibasilar atelectasis. Liver: Unremarkable. Normal in size and attenuation. No suspicious masses. Gallbladder and bile ducts: Status postcholecystectomy no stones or inflammation. Moderate biliary distension likely secondary to post cholecystectomy state. Pancreas: Unremarkable. No mass or inflammation. Spleen: Unremarkable. Normal in size. No masses. Adrenal glands: Unremarkable. No nodules. Kidneys: Unremarkable. No suspicious masses, stones, or hydronephrosis. GI tract: Circumferential bowel wall thickening and mucosal enhancement involving several loops of small bowel with minimal surrounding free fluid. No intra-abdominal abscess. Scattered colonic diverticula. Vasculature: Abdominal aorta is normal in caliber. Mesenteric arteries are patent. Calcific atherosclerosis of the aortoiliac system. Lymph nodes: No lymphadenopathy. Peritoneum/Abdominal Wall: Unremarkable. No sign of mass or infiltration. No free air or significant free fluid. Pelvis: Unremarkable. Bones: No acute abnormalities. Posterior spinal fusion construct and postsurgical changes of right total hip arthroplasty. 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 IMPRESSION: 1. Circumferential bowel wall thickening and mucosal enhancement involving several loops of small bowel with minimal surrounding free fluid, suggestive of enteritis. No evidence of bowel obstruction. 2. Moderate biliary dilatation likely secondary to post cholecystectomy state. Assessment and Plan Assessment and plan (1) Gastrointestinal bleeding: Problem comment: Patient has acute on chronic anemia with epigastric pain and vomiting and excessive anticoagulation and dark stools. Likely an upper GI bleed. Fluids, ppi, close monitoring of hemoglobin and vital signs, arrange for upper endoscopy, Status: Acute (2) Long-term (current) use of anticoagulants, INR goal 2.0-3.0: Problem comment: Indication: DVT/PE, also history of AFib Duration: Lifelong. INR today is 6. Will reverse this with vitamin K and then reassess risk once bleeding has been evaluated Status: Acute (3) Vomiting: Problem comment: Intractable vomiting. Uncertain if this is the cause of her bleeding or a result of her bleeding. CT shows enteritis Status: Acute (4) Enteritis: Problem comment: Main symptom is vomiting. No obvious diarrhea. 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 Increased to prednisone 20 mg b.i.d. pending further evaluation and clinical course Status: Acute (7) Nonspecific colitis: Problem comment: June 2021 had colitis. Self-limited disease. No evidence of a chronic process Status: Acute (8) Hypertension: Problem comment: Hold antihypertensive medicines while evaluating GI bleeding Status: Acute (9) Hypokalemia: Problem comment: Replace and monitor Status: Acute (10) Dilated cardiomyopathy: Problem comment: With fluid resuscitation and possible blood transfusion will need to monitor cardia respiratory status closely Status: Acute (11) Gastroesophageal reflux disease: Problem comment: On PPI chronically Status: Acute (12) Anemia of chronic disease: Problem comment: Now with acute GI bleeding causing acute anemia in the face of chronic anemia of chronic disease Status: Acute (13) Elevated troponin: Problem comment: No chest pain. Suspect this is stress induced ischemia. Not a candidate for antiplatelet or anticoagulation at this time due to bleeding Status: Acute Plan Admit to the hospital for evaluation and treatment of GI bleeding and intractable vomiting., will need serial labs and cardia respiratory monitoring. Total time spent today is 90 minutes, 60 minutes in coordination of care and discussing with patient and other providers ongoing evaluation management of vomiting and GI bleeding.
[2023-03-23] MEDS: PANTOPRAZOLE SODIUM 40 MG INJ IVP (20:16)
[2023-03-23] MEDS: HYDROCODONE-ACETAMIN 5-325 MG 1 TAB PO (20:16)
[2023-03-23] MEDS: LACTATED RINGERS 1000 ML 1,000 ML 500 ML IV (20:17)
[2023-03-23 20:58] LABS: Basophils Percent Auto 0.2 % (0.0-3.0); Hematocrit 25.6 % (33.0-51.0); Hemoglobin* 8.2 gm/dL (12.0-16.0); Immature Granulocytes Pct Auto 1.5 %; Mean Corpuscular HGB Conc 32 gm/dL (32-36); Mean Corpuscular Hemoglobin 31 pg (26-34); Mean Corpuscular Volume 97 fL (80-100); Monocytes Percent Auto 2.3 % (0.0-11.0); Platelet Count* 208 K/uL (140-440); Red Blood Count 2.65 m/uL (4.00-5.20); White Blood Count* 14.92 K/uL (4.50-11.00)
[2023-03-23 21:00] LABS: Slide Review Reflex No
[2023-03-23 21:15] LABS: Troponin I* 0.13 ng/mL (0.01-0.04)
[2023-03-23] MEDS: MORPHINE 2 MG/ML inj IVP (22:23)
[2023-03-23] MEDS: PROCHLORPERAZINE 5 MG/ML VIAL IV (22:23)
[2023-03-24] VITALS (13 sets, daily range): BP systolic 116–178; BP diastolic 57–99; PULSE 87–122; RESP 16–22; TEMP 36.4–37.3; O2SAT 90–98
[2023-03-24] MEDS: METOPROLOL TARTRATE 1 MG/ML inj 2.5 MG IVP ×5 (00:13→23:14)
[2023-03-24] MEDS: LACTATED RINGERS 1000 ML 1,000 ML 75 ML IV ×2 (01:47→21:00)
[2023-03-24] MEDS: MORPHINE 2 MG/ML inj IVP ×4 (01:48→17:20)
[2023-03-24 02:18] LABS: Hemoglobin* 6.8 gm/dL (12.0-16.0)
[2023-03-24] MEDS: PROCHLORPERAZINE 5 MG/ML VIAL IV ×3 (05:26→17:20)
[2023-03-24 05:45] LABS: Chloride* 105 mmol/L (96-114); Potassium* 3.5 mmol/L (3.6-5.1); Sodium* 133 mmol/L (135-149)
[2023-03-24 05:47] LABS: INR 1.33 (0.91-1.10); Prothrombin Time 17.4 Seconds
[2023-03-24 05:48] LABS: Anion Gap 0 mEq/L (7-15); Blood Urea Nitrogen* 26 mg/dL (7-30); Carbon Dioxide* 28 mmol/L (20-32); Creatinine* 0.6 mg/dL (0.5-1.5); Estimated Glomerular Filt Rate 91 ml/min
[2023-03-24 05:49] LABS: Calcium* 8.3 mg/dL (8.4-10.6); Glucose* 124 mg/dL (60-115)
[2023-03-24 06:02] LABS: Troponin I* 0.19 ng/mL (0.01-0.04)
--- NOTE | 2023-03-24 06:11 | PC.NURSE ---
End of shift [id number]: Patient alert and oriented, appears fatigued. Nausea and vomiting continued at start of shift, patient received IV zofran without relief. MD notified and new order for prochlorperazine, medication effective and after administration patient has had no further emesis. Incontinent of bladder and bowel, attempted to have patient use commode, transfer required assist of 3 with pivot onto commode. Hgb at 0200 6.8, 1 unit PRBC's initiated per MD order,consent obtained, patient tolerating well without signs of reaction. Unable to tolerate PO meds at this time.
[2023-03-24 07:02] LABS: Basophils Percent Auto 0.1 % (0.0-3.0); Hematocrit 28.6 % (33.0-51.0); Immature Granulocytes Pct Auto 0.2 %; Lymphocytes Percent Auto 7.9 % (20-44); Mean Corpuscular HGB Conc 32 gm/dL (32-36); Mean Corpuscular Hemoglobin 30 pg (26-34); Mean Corpuscular Volume 97 fL (80-100); Monocytes Percent Auto 9.1 % (0.0-11.0); Neutrophils Percent Auto 82.7 % (42.0-72.0); Platelet Count* 205 K/uL (140-440); RDW Coefficient of Variation % 16.6 % (11.5-15.5); Red Blood Count 2.96 m/uL (4.00-5.20); White Blood Count* 12.79 K/uL (4.50-11.00)
[2023-03-24 07:03] LABS: Slide Review Reflex No
[2023-03-24] MEDS: ONDANSETRON 2 MG/ML inj 4 MG IVP (07:39)
--- NOTE | 2023-03-24 11:11 | PM.IMPN1 ---
Progress Note: A&P Assessment and plan (1) Gastrointestinal bleeding: Problem details: Patient has acute on chronic anemia with epigastric pain, hematemesis, dark stools. Supratherapeutic INR. Likely an upper GI bleed. H/o PUD 2006, colitis 2021, GERD on chronic PPI. Denies previous history of bleeds CT shows enteritis Hemoglobin of 8.1 on admission (previously 11.5), decreased to 6.8 overnight, currently 9.0 following 1 unit PRBC Continue IV fluids 75 mL/HR, ppi b.i.d., nausea and pain management as needed monitor and storage bin tender Scheduled for endoscopy at noon 03/24 Status: Acute (2) Long-term (current) use of anticoagulants, INR goal 2.0-3.0: Problem details: Chronic. 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 H/o rheumatoid arthritis Home dose chronic prednisone 7 mg daily Increase prednisone to 10 mg b.i.d. pending further evaluation and clinical course Methotrexate held Status: Acute (5) Hypertension: Problem details: Hold furosemide, losartan while evaluating GI bleeding, continue metoprolol, monitor pressures Status: Acute (6) Hypokalemia: Problem details: Potassium 3.5, previously 3.3. Continue supplement and monitor. Mild hyponatremia, improving, currently 133 Status: Acute (7) Dilated cardiomyopathy: Problem details: With fluid resuscitation and possible blood transfusion will need to monitor cardiac respiratory status closely Status: Acute (8) Anemia of chronic disease: Problem details: Now with acute GI bleeding causing acute anemia in the face of chronic anemia of chronic disease Status: Acute (9) Elevated troponin: Problem details: Continues with no complaint of chest pain. Suspect this is stress induced ischemia. Not a candidate for antiplatelet or anticoagulation at this time due to bleeding Status: Acute Time Spent With Patient Total time spent: Total time spent caring for the patient today was 45 minutes. This includes time spent for the visit reviewing the chart, time spent during the visit, time spent after the visit and documentation and planning in coordination of care. Subjective Date Seen: 03/24/23 Interval history: Patient is lying in bed this morning, having had multiple black emesis overnight, approximately 100 mL each. Large black stool approximately 1830 last night. Nausea currently controlled. Mild abdominal discomfort. Denies headache or dizziness. Denies chest pain or shortness of breath. Overall, does not feel well. Exam Narrative: Exam Narrative: PHYSICAL EXAM General: Lying in bed, appears tired, an 80 HEENT: Normocephalic, atraumatic, sclera white, EOMI Cardiovascular: RRR Pulmonary: CTA bilaterally without rhonchi, rales, expiratory wheezes. No dyspnea Abdominal: Soft, mildly distended, no guarding, mild diffuse tenderness Neurological: Alert, answering questions appropriately, cranial nerves intact, no focal findings Extremities: No gross joint deformity or swelling. AROMI. Neurovascularly intact Skin: Pale, Warm, dry, multiple bruises noted. Const: Vital Signs, click to edit/add: Vital Signs - 24 hr 03/23/23 12:47 03/23/23 13:50 03/23/23 14:00 Temperature 97.7 F Pulse Rate 108 H 104 H Pulse Rate [Pulse Oximeter] 108 H Pulse Rate [Right Pulse Oximeter] Respiratory Rate 20 Blood Pressure Blood Pressure [Le ft Upper Arm] 152/81 H Blood Pressure [Ri ght Arm] Pulse Oximetry 96 89 95 Oxygen Delivery Me thod Room Air Oxygen Flow Rate 03/23/23 14:15 03/23/23 14:30 03/23/23 14:45 Temperature Pulse Rate 115 H 106 H 105 H Pulse Rate [Pulse Oximeter] Pulse Rate [Right Pulse Oximeter] Respiratory Rate Blood Pressure Blood Pressure [Le ft Upper Arm] Blood Pressure [Ri ght Arm] Pulse Oximetry 86 L 97 97 Oxygen Delivery Me thod Oxygen Flow Rate 03/23/23 14:46 03/23/23 15:00 03/23/23 15:01 Temperature Pulse Rate 107 H 108 H 107 H Pulse Rate [Pulse Oximeter] Pulse Rate [Right Pulse Oximeter] Respiratory Rate Blood Pressure 133/74 156/79 H Blood Pressure [Le ft Upper Arm] Blood Pressure [Ri ght Arm] Pulse Oximetry 98 93 93 Oxygen Delivery Me thod Oxygen Flow Rate 03/23/23 15:02 03/23/23 15:15 03/23/23 15:30 Temperature Pulse Rate 106 H 107 H 106 H Pulse Rate [Pulse Oximeter] Pulse Rate [Right Pulse Oximeter] Respiratory Rate Blood Pressure Blood Pressure [Le ft Upper Arm] Blood Pressure [Ri ght Arm] Pulse Oximetry 94 92 94 Oxygen Delivery Me thod Oxygen Flow Rate 03/23/23 15:31 03/23/23 15:45 03/23/23 16:00 Temperature Pulse Rate 107 H 105 H 109 H Pulse Rate [Pulse Oximeter] Pulse Rate [Right Pulse Oximeter] Respiratory Rate Blood Pressure 144/90 H Blood Pressure [Le ft Upper Arm] Blood Pressure [Ri ght Arm] Pulse Oximetry 93 97 93 Oxygen Delivery Me thod Oxygen Flow Rate 03/23/23 16:01 03/23/23 16:15 03/23/23 16:30 Temperature Pulse Rate 106 H 110 H 111 H Pulse Rate [Pulse Oximeter] Pulse Rate [Right Pulse Oximeter] Respiratory Rate Blood Pressure 126/98 H Blood Pressure [Le ft Upper Arm] Blood Pressure [Ri ght Arm] Pulse Oximetry 95 96 94 Oxygen Delivery Me thod Oxygen Flow Rate 03/23/23 16:33 03/23/23 16:45 03/23/23 17:00 Temperature Pulse Rate 113 H 112 H 115 H Pulse Rate [Pulse Oximeter] Pulse Rate [Right Pulse Oximeter] Respiratory Rate Blood Pressure 161/75 H Blood Pressure [Le ft Upper Arm] Blood Pressure [Ri ght Arm] Pulse Oximetry 95 92 93 Oxygen Delivery Me thod Oxygen Flow Rate 03/23/23 17:01 03/23/23 19:07 03/23/23 19:07 Temperature 98.0 F Pulse Rate 114 H Pulse Rate [Pulse Oximeter] Pulse Rate [Right Pulse Oximeter] Respiratory Rate 20 20 Blood Pressure 143/73 H Blood Pressure [Le ft Upper Arm] Blood Pressure [Ri ght Arm] Pulse Oximetry 95 95 95 Oxygen Delivery Me thod Room Air Room Air Oxygen Flow Rate 03/23/23 23:00 03/23/23 23:00 03/23/23 23:00 Temperature 98.9 F Pulse Rate 122 H Pulse Rate [Pulse Oximeter] Pulse Rate [Right Pulse Oximeter] 114 H 114 H Respiratory Rate 20 16 Blood Pressure Blood Pressure [Le ft Upper Arm] Blood Pressure [Ri ght Arm] 99/49 L Pulse Oximetry 96 Oxygen Delivery Me thod Room Air Oxygen Flow Rate 03/24/23 03:00 03/24/23 03:18 03/24/23 03:40 Temperature 99.2 F 98.7 F 98.8 F Pulse Rate 122 H 101 H Pulse Rate [Pulse Oximeter] Pulse Rate [Right Pulse Oximeter] 122 H Respiratory Rate 18 18 16 Blood Pressure 120/94 H 137/61 Blood Pressure [Le ft Upper Arm] Blood Pressure [Ri ght Arm] 126/61 Pulse Oximetry 98 97 Oxygen Delivery Me thod Room Air Oxygen Flow Rate 03/24/23 03:43 03/24/23 04:28 03/24/23 07:00 Temperature 97.9 F 98.2 F Pulse Rate 104 H 96 99 Pulse Rate [Pulse Oximeter] Pulse Rate [Right Pulse Oximeter] Respiratory Rate 22 18 Blood Pressure 178/71 H 171/82 H Blood Pressure [Le ft Upper Arm] Blood Pressure [Ri ght Arm] Pulse Oximetry 95 94 Oxygen Delivery Me thod Oxygen Flow Rate 03/24/23 07:00 03/24/23 07:00 Temperature 97.6 F Pulse Rate Pulse Rate [Pulse Oximeter] Pulse Rate [Right Pulse Oximeter] 99 99 Respiratory Rate 18 18 Blood Pressure Blood Pressure [Le ft Upper Arm] Blood Pressure [Ri ght Arm] 165/81 H Pulse Oximetry 95 Oxygen Delivery Me thod Nasal Cannula Oxygen Flow Rate 0.5 Labs Labs: Laboratory Results - last 24 hr 03/23/23 03/23/23 03/23/23 13:35 13:59 19:50 WBC 11.91 H RBC 2.64 L Hgb 8.1 L Hct 25.6 L MCV 97 MCH 31 MCHC 32 RDW Coeff of Rolo 15.7 H Plt Count 270 Neut % (Auto) 86.0 H Lymph % (Auto) 7.3 L [place] % (Auto) 6.1 Eos % (Auto) 0.1 Baso % (Auto) 0.3 Neut # (Auto) 10.20 H Lymph # (Auto) 0.90 [place] # (Auto) 0.70 Eos # (Auto) 0.00 Baso # (Auto) 0.00 Abs Immat Gran (auto) 0.00 Imm/Tot Granulo (auto) 0.2 INR 6.05 H* Sodium 132 L Potassium 3.3 L Chloride 102 Carbon Dioxide 27 Anion Gap 3 L BUN 40 H Creatinine 0.6 Estimated Creat Clear 51.28 Estimated GFR 91 Glucose 154 H Lactate 1.7 Calcium 8.5 Total Bilirubin 0.5 AST 61 H ALT 34 Alkaline Phosphatase 66 Troponin I 0.08 H* Total Protein 6.1 Albumin 3.5 Lipase 29 Stool Occult Blood Positive A SARS-CoV-2 (PCR) Negative SARS-CoV-2 Influenza Type A (PCR) Negative PCR FLU A Influenza Type B (PCR) Negative PCR FLU B RSV (PCR) Negative PCR RSV Blood Type A Positive Antibody Screen NEGATIVE Crossmatch ([facility]) See Detail 03/23/23 03/24/23 03/24/23 20:20 02:05 06:47 WBC 14.92 H 12.79 H RBC 2.65 L 2.96 L Hgb 8.2 L 6.8 L* 9.0 L Hct 25.6 L 28.6 L MCV 97 97 MCH 31 30 MCHC 32 32 RDW Coeff of Rolo 16.0 H 16.6 H Plt Count 208 205 Neut % (Auto) 93.0 H 82.7 H Lymph % (Auto) 3.0 L 7.9 L [place] % (Auto) 2.3 9.1 Eos % (Auto) 0.0 0.0 Baso % (Auto) 0.2 0.1 Neut # (Auto) 13.90 H 10.60 H Lymph # (Auto) 0.40 L 1.00 [place] # (Auto) 0.30 1.20 H Eos # (Auto) 0.00 0.00 Baso # (Auto) 0.00 0.00 Abs Immat Gran (auto) 0.20 0.00 Imm/Tot Granulo (auto) 1.5 0.2 INR 1.33 H Sodium 133 L Potassium 3.5 L Chloride 105 Carbon Dioxide 28 Anion Gap 0 L BUN 26 Creatinine 0.6 Estimated Creat Clear 39.20 Estimated GFR 91 Glucose 124 H Lactate Calcium 8.3 L Total Bilirubin AST ALT Alkaline Phosphatase Troponin I 0.13 H* 0.19 H* Total Protein Albumin Lipase Stool Occult Blood SARS-CoV-2 (PCR) Influenza Type A (PCR) Influenza Type B (PCR) RSV (PCR) Blood Type Antibody Screen Crossmatch ([facility])
--- NOTE | 2023-03-24 12:10 | W.ANESCHARGE ---
Anesthesia Charges Start Date/Time Anesthesia Start Date: 03/24/23 Anesthesia Start Time: 12:00 Stop Date/Time Anesthesia Stop Date: 03/24/23 Anesthesia Stop Time: 12:30 Summary Extremes of Age - Over 70 or under 1: MDA
--- NOTE | 2023-03-24 12:27 | W.ANESCHARGE ---
Anesthesia Charges Start Date/Time Anesthesia Start Date: 03/24/23 Anesthesia Start Time: 12:00 Stop Date/Time Anesthesia Stop Date: 03/24/23 Anesthesia Stop Time: 12:30
--- NOTE | 2023-03-24 12:52 | NUTR.NU ---
RDN with MD consult for Nutritional Consult. Patient admitted with acute on chronic anemia with epigastric pain, hematemesis, dark stools. CT showed enteritis. Received endoscopy at noon today. Diet order is currently NPO; patient has been NPO since admit. Weight records shows patient was 140 lbs about 1 year ago (05/06/2022), which is stable. Patient is not appropriate to visit at this time. RDN will continue to monitor and attempt to visit when appropriate.
--- NOTE | 2023-03-24 13:33 | PC.NURSE ---
PATIENT PLEASANT AND COOPERATIVE, ALERT AND ORIENTED, T&R IN BED, DRY HEAVING THROUGHOUT SHIFT PRN ZOFRAN AND COMPAZINE WITH RELIEF MD AWARE, NO EMESIS, PRN MORPHINE FOR LOWER BACK AND LEFT HIP PAIN, PRN MD START A SECOND IV, COMPLETED SEE CHARTING, FAMILY VISITING THIS MORNING AND VERY SUPPORTIVE, PATIENT TO SCOPES AROUND 1130, REMAINS NPO PER MD, REDNESS UNDER LEFT BREAST AREA CLEANED, UNABLE TO TOLERATE ORAL MEDICATION MD AWARE.
[2023-03-24 14:26] LABS: Hemoglobin* 8.8 gm/dL (12.0-16.0)
[2023-03-24] MEDS: PANTOPRAZOLE SODIUM 40 MG INJ IVP ×2 (14:34→21:00)
--- NOTE | 2023-03-24 14:35 | REH.OT ---
OT: Order received, chart reviewed and spoke with RN in am, patient having EGD today, troponins trending up today to .19, critical value. Noted Hgb 6.8->9.0 today. Nsg reports was assist x3 to move and went in pm to aid in determining safe options for transfers, patient was groggy after EGD, unable to sustain alertness to answer questions about prior level of function. RN reports patient's daughter plans to bring her upright walker this evening. Recommend use of ceiling lift if needing to transfer patient, until more alert and able to actively assist in transfers. Per chris, lives at [facility], report is assist with compressoin stockings in am/pm, bating assist 1x/week. Therapy will need to clarify current services and patient's functional baseline when patient more alert or family available.
--- NOTE | 2023-03-24 14:39 | PC.NURSE ---
UPDATED RIKI DTR VIA PHONE, ALL QUESTIONS ANSWERED.
[2023-03-24] MEDS: HYDROCODONE-ACETAMIN 5-325 MG 1 TAB PO (17:21)
[2023-03-24] MEDS: predniSONE 5 MG TABLET 10 MG PO (17:21)
--- NOTE | 2023-03-24 19:57 | PC.NURSE ---
Moved to chair via ceiling lift for supper, tolerated fair. C/o 7/10 generalized pain, worse in her back and hips. Once in the chair she was able to find a comfortable position and PRN Morphine and [place] given. Pre-medicated with compazine prior to clear liquids. Tolerated well. Poor appetite, but sips of coffee & juice, and a bite or two of a popsicle were tolerated well.
[2023-03-24] MEDS: SODIUM CHLORIDE 0.9 % (FLUSH) 10 ML SYRINGE 5 ML IVF (21:01)
[2023-03-24] MEDS: POTASSIUM CHLORIDE 10 MEQ CAPSULE ER PO (21:01)
[2023-03-24] MEDS: NICOTINE 2 MG GUM BUCCAL (21:10)
[2023-03-25] VITALS (38 sets, daily range): BP systolic 102–173; BP diastolic 51–91; PULSE 79–136; RESP 16–20; TEMP 36.4–37.4; O2SAT 81–99
[2023-03-25] MEDS: MORPHINE 2 MG/ML inj IVP ×4 (00:30→13:40)
[2023-03-25] MEDS: HYDROCODONE-ACETAMIN 5-325 MG 1 TAB PO ×2 (03:47→19:31)
[2023-03-25] MEDS: METOPROLOL TARTRATE 1 MG/ML inj 2.5 MG IVP ×3 (05:14→09:53)
--- NOTE | 2023-03-25 06:15 | PC.NURSE ---
End of shift [id number]: A&O w/ bouts of forgetfulness. VSS on 1L of O2 overnight. Denying n/v. Multiple times throughout night pt calling out in pain. See eMAR for interventions. Upon reassessments pt sleeping. Turn and repo while in bed. Transfers w/ ceiling lift to chair and commode. IV in right forearm infiltrated. IV removed w/ tip intact. Pt has been continent. Bed alarm in place.
[2023-03-25 06:50] LABS: Basophils Percent Auto 0.1 % (0.0-3.0); Eosinophils Percent Auto 0.2 % (0.0-7.0); Hematocrit 24.4 % (33.0-51.0); Immature Granulocytes Pct Auto 0.2 %; Lymphocytes Percent Auto 8.8 % (20-44); Mean Corpuscular HGB Conc 31 gm/dL (32-36); Mean Corpuscular Hemoglobin 31 pg (26-34); Mean Corpuscular Volume 99 fL (80-100); Monocytes Percent Auto 10.4 % (0.0-11.0); Neutrophils Percent Auto 80.3 % (42.0-72.0); Platelet Count* 144 K/uL (140-440); RDW Coefficient of Variation % 17.4 % (11.5-15.5); Red Blood Count 2.46 m/uL (4.00-5.20); White Blood Count* 12.85 K/uL (4.50-11.00)
[2023-03-25 07:04] LABS: INR 1.14 (0.91-1.10); Prothrombin Time 15.3 Seconds
[2023-03-25 07:18] LABS: Chloride* 107 mmol/L (96-114); Potassium* 3.3 mmol/L (3.6-5.1); Sodium* 139 mmol/L (135-149)
[2023-03-25 07:19] LABS: Hemoglobin* 7.5 gm/dL (12.0-16.0); Slide Review Reflex No
[2023-03-25 07:21] LABS: Anion Gap 5 mEq/L (7-15); Blood Urea Nitrogen* 19 mg/dL (7-30); Calcium* 8.1 mg/dL (8.4-10.6); Carbon Dioxide* 27 mmol/L (20-32); Creatinine* 0.6 mg/dL (0.5-1.5); Est. Creatinine Clearance* 42.89; Estimated Glomerular Filt Rate 91 ml/min; Glucose* 91 mg/dL (60-115)
[2023-03-25] MEDS: LOSARTAN POTASSIUM 50 MG TABLET 25 MG PO (08:48)
[2023-03-25 08:52] LABS: Procalcitonin* 0.15 ng/mL (<0.50)
[2023-03-25] MEDS: PANTOPRAZOLE SODIUM 40 MG INJ IVP ×2 (09:00→21:21)
[2023-03-25] MEDS: POTASSIUM CHLORIDE 10 MEQ CAPSULE ER 20 MEQ PO ×2 (09:03→21:21)
[2023-03-25] MEDS: predniSONE 5 MG TABLET 10 MG PO ×2 (09:03→17:57)
[2023-03-25] MEDS: METOPROLOL SUCCINATE (XL) 25 MG TAB PO (09:04)
[2023-03-25] MEDS: SODIUM CHLORIDE 0.9 % (FLUSH) 10 ML SYRINGE 5 ML IVF ×2 (09:04→21:21)
[2023-03-25 10:26] LABS: Hemoglobin* 7.9 gm/dL (12.0-16.0)
[2023-03-25 10:32] LABS: Appearance Urine Clear (Clear); Bilirubin Urine Negative (Negative); Blood Urine Negative (Negative); Color Urine Yellow (Yellow); Glucose Urine Negative (Negative); Ketones Urine 2+ (Negative); Leukocyte Esterase Urine Negative (Negative); Nitrite Urine Negative (Negative); Protein Urine Trace (Negative); Specific Gravity Urine 1.015 (1.000-1.030); Urobilinogen Urine 0.2 (0.2-1.0)
--- NOTE | 2023-03-25 10:50 | PC.NURSE ---
Patient A&O and responds to voice this morning. Awake but drowsy. VSS in AM with exception to O2 needs. Maintains O2 > 90% on 1L NC. Takes meds whole with water. Patient restless in AM d/t generalized chronic pain; PRN IV morphine given & repositioned with no relief. PIV 22g right lower leg infusing LR @ 125 mL/hr. DaughterGiselle present at bedside at attentive to patient's needs. During repositioning; HR noted to be elevated in 130s-140s. MD notified & EKG performed showing A. Fib RVR. IV 2.5mg metoprolol given in addition to PO dose per MD. HR continued in the 120s-130s so patient was transferred to CCU2 and handoff provided face to face to RADHA Romeo.
[2023-03-25 11:18] LABS: Appearance Urine Clear (Clear); Bilirubin Urine Negative (Negative); Blood Urine Negative (Negative); Color Urine Yellow (Yellow); Glucose Urine Negative (Negative); Ketones Urine 2+ (Negative); Specific Gravity Urine 1.015 (1.000-1.030)
[2023-03-25 11:19] LABS: Leukocyte Esterase Urine Negative (Negative); Nitrite Urine Negative (Negative); Protein Urine Trace (Negative); RBC Urine 0-2 (0-2); Squamous Epithelial Cell Urine Few (None-Few); Urobilinogen Urine 0.2 (0.2-1.0); WBC Urine 0-2 (0-5)
[2023-03-25] MEDS: dilTIAZem HCL 125 MG in 0.9 % SODIUM CHLORIDE 100 ml 100 ML IVPB (11:19)
[2023-03-25] MEDS: LACTATED RINGERS 1000 ML 1,000 ML 75 ML IV (13:48)
--- NOTE | 2023-03-25 14:16 | PM.IMPN1 ---
Progress Note: A&P Assessment and plan (1) Gastrointestinal bleeding: Problem details: Patient has acute on chronic anemia with epigastric pain, hematemesis, dark stools. Supratherapeutic INR. Likely an upper GI bleed. H/o PUD 2006, colitis 2021, GERD on chronic PPI. Denies previous history of bleeds CT shows enteritis Hemoglobin of 8.1 on admission (previously 11.5), decreased to 6.8 overnight, currently 9.0 following 1 unit PRBC Continue IV fluids 75 mL/HR, ppi b.i.d., nausea and pain management as needed classroom monitor 03/24: Endoscopy with Dr. Martin notable for dark fluid, diverticulum without evidence of active bleed. She also reviewed CT showing circumferential bowel wall thickening. While this may be chronic with history of colitis, would be concerned if patient deteriorates, recommending transfer 03/25: No further vomiting or stools. Hemoglobin 7.5 this morning, 7.9 on recheck. Mild leukocytosis, downtrending. BC negative, Procalcitonin negative, UA unremarkable. Will discontinue IV fluids when adequate oral intake, query dilutional component Status: Acute (2) Long-term (current) use of anticoagulants, INR goal 2.0-3.0: Problem details: Chronic. Indication: DVT/PE, also history of AFib INR 6.0 on admission, currently 1.14 following vitamin K administration on admission Continue to hold Coumadin (03/25) will need to resume prior to discharge, hemoglobin stabilizes Status: Acute (3) Atrial fibrillation: Problem details: 03/25: Acute, suspected in setting of poor perfusion, anemia. -Inadequate response to oral metoprolol and IV bumps. Moved to CCU status. Diltiazem drip initiated, goal heart rate 100-119 for continued perfusion. Discontinued when goal rate med. 1 unit PRBC transfused. Awaiting repeat hemoglobin. Continue IV metoprolol 2.5 mg q.6 hours and oral metoprolol q.a.m. 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 H/o rheumatoid arthritis, SLE Home dose chronic prednisone 7 mg daily Continues increased prednisone 10 mg b.i.d. (day 2) pending improved clinical course. Will check Mag and TSH Methotrexate held Status: Acute (6) Hypertension: Problem details: Continue metoprolol given history of atrial fibrillation, oral and IV Restarted losartan (03/25) Continue to hold furosemide, monitoring for fluid overload Status: Acute (7) Hypokalemia: Problem details: Potassium 3.3-3.5. Continue supplement, increased to 20 mEq b.i.d., and monitor. Mild hyponatremia, resolved Status: Acute (8) Dilated cardiomyopathy: Problem details: With fluid resuscitation and possible blood transfusion will need to monitor cardiac respiratory status closely. Discontinue IVF with adequate oral intake Status: Acute (9) Anemia of chronic disease: Problem details: Now with acute GI bleeding causing acute anemia in the face of chronic anemia of chronic disease Status: Acute (10) Elevated troponin: Problem details: Continues with no complaint of chest pain. Suspect this is stress induced ischemia. Not a candidate for antiplatelet or anticoagulation at this time due to bleeding Status: Acute Plan Awaiting stabilization hemoglobin, improved clinical course, therapies for weakness. Time Spent With Patient Total time spent: Total time spent caring for the patient today was 70 minutes. This includes time spent for the visit reviewing the chart, time spent during the visit, time spent after the visit and documentation and planning in coordination of care. Subjective Date Seen: 03/25/23 Interval history: Patient is seen with daughter at bedside this morning. Feeling better, color improved. Has flipped into afib with RVR just now. Denies headache or dizziness. Denies chest pain or shortness of breath. Hemoglobin 7.5 this morning. No reports of vomiting nor further bowel movements since admission. Exam Narrative: Exam Narrative: PHYSICAL EXAM General: Lying in bed, appears brighter this morning, conversant, smiles HEENT: Normocephalic, atraumatic, sclera white, EOMI Cardiovascular: IRRR Pulmonary: CTA bilaterally without rhonchi, rales, expiratory wheezes. No dyspnea Neurological: Alert, answering questions appropriately, cranial nerves intact, no focal findings Extremities: No gross joint deformity or swelling. AROMI. Neurovascularly intact Skin: Warm, dry Const: Vital Signs, click to edit/add: Vital Signs - 24 hr 03/24/23 15:00 03/24/23 15:00 03/24/23 15:00 Temperature 98 F Pulse Rate 87 Pulse Rate [Right Pulse Oximeter] 108 H 108 H Respiratory Rate 18 18 Blood Pressure Blood Pressure [Ri ght Arm] 137/71 Pulse Oximetry 90 Oxygen Delivery Me thod Room Air Oxygen Flow Rate 03/24/23 18:40 03/24/23 19:00 03/24/23 22:14 Temperature 99.0 F Pulse Rate 87 Pulse Rate [Right Pulse Oximeter] 96 Respiratory Rate 16 Blood Pressure Blood Pressure [Ri ght Arm] 138/59 L Pulse Oximetry 95 94 Oxygen Delivery Me thod Nasal Cannula Room Air Oxygen Flow Rate 1 03/24/23 23:12 03/25/23 03:12 03/25/23 07:00 Temperature 98.9 F 97.7 F Pulse Rate 79 Pulse Rate [Right Pulse Oximeter] 105 H 99 Respiratory Rate 18 18 Blood Pressure Blood Pressure [Ri ght Arm] 155/73 H 167/81 H Pulse Oximetry 94 95 Oxygen Delivery Me thod Nasal Cannula Nasal Cannula Oxygen Flow Rate 1 1 03/25/23 08:30 03/25/23 10:00 03/25/23 11:24 Temperature 99.1 F 97.9 F Pulse Rate 136 H Pulse Rate [Right Pulse Oximeter] 97 97 Respiratory Rate 20 20 18 Blood Pressure 120/72 Blood Pressure [Ri ght Arm] 144/64 H Pulse Oximetry 94 96 Oxygen Delivery Me thod Nasal Cannula Oxygen Flow Rate 1 03/25/23 11:30 03/25/23 11:31 03/25/23 11:45 Temperature Pulse Rate 102 H 105 H 105 H Pulse Rate [Right Pulse Oximeter] Respiratory Rate Blood Pressure 115/60 Blood Pressure [Ri ght Arm] Pulse Oximetry 95 95 96 Oxygen Delivery Me thod Oxygen Flow Rate 03/25/23 11:46 03/25/23 12:00 03/25/23 12:01 Temperature 97.8 F Pulse Rate 90 104 H 103 H Pulse Rate [Right Pulse Oximeter] Respiratory Rate 16 Blood Pressure 102/65 120/59 L Blood Pressure [Ri ght Arm] Pulse Oximetry 96 95 95 Oxygen Delivery Me thod Oxygen Flow Rate 03/25/23 12:02 03/25/23 12:11 03/25/23 12:15 Temperature 97.8 F Pulse Rate 89 106 H 93 Pulse Rate [Right Pulse Oximeter] Respiratory Rate 16 Blood Pressure 120/59 L Blood Pressure [Ri ght Arm] Pulse Oximetry 95 93 94 Oxygen Delivery Me thod Oxygen Flow Rate 03/25/23 12:16 Temperature 97.7 F Pulse Rate 105 H Pulse Rate [Right Pulse Oximeter] Respiratory Rate 16 Blood Pressure 116/57 L Blood Pressure [Ri ght Arm] Pulse Oximetry 93 Oxygen Delivery Me thod Oxygen Flow Rate Labs Labs: Laboratory Results - last 24 hr 03/23/23 03/24/23 03/25/23 13:35 14:11 06:10 WBC 12.85 H RBC 2.46 L Hgb 8.8 L 7.5 L* Hct 24.4 L MCV 99 MCH 31 MCHC 31 L RDW Coeff of Rolo 17.4 H Plt Count 144 Neut % (Auto) 80.3 H Lymph % (Auto) 8.8 L Vernon % (Auto) 10.4 Eos % (Auto) 0.2 Baso % (Auto) 0.1 Neut # (Auto) 10.30 H Lymph # (Auto) 1.10 Vernon # (Auto) 1.30 H Eos # (Auto) 0.00 Baso # (Auto) 0.00 Abs Immat Gran (auto) 0.00 Imm/Tot Granulo (auto) 0.2 INR 1.14 H Sodium 139 Potassium 3.3 L Chloride 107 Carbon Dioxide 27 Anion Gap 5 L BUN 19 Creatinine 0.6 Estimated Creat Clear 42.89 Estimated GFR 91 Glucose 91 Calcium 8.1 L Procalcitonin 0.15 Urine Color Urine Appearance Urine pH Ur Specific [place] Urine Protein Urine Glucose (UA) Urine Ketones Urine Blood Urine Nitrite Urine Bilirubin Urine Urobilinogen Ur Leukocyte Esterase Urine RBC Urine WBC Ur Squamous Epith Cells Urine Bacteria Lab Acknowledgement Blood Type A Positive Antibody Screen NEGATIVE Crossmatch (AHG) See Detail 03/25/23 03/25/23 03/25/23 08:05 10:16 10:24 WBC RBC Hgb 7.9 L* Hct MCV MCH MCHC RDW Coeff of Rolo Plt Count Neut % (Auto) Lymph % (Auto) Vernon % (Auto) Eos % (Auto) Baso % (Auto) Neut # (Auto) Lymph # (Auto) Vernon # (Auto) Eos # (Auto) Baso # (Auto) Abs Immat Gran (auto) Imm/Tot Granulo (auto) INR Sodium Potassium Chloride Carbon Dioxide Anion Gap BUN Creatinine Estimated Creat Clear Estimated GFR Glucose Calcium Procalcitonin Urine Color Yellow Urine Appearance Clear Urine pH 7.0 Ur Specific [place] 1.015 Urine Protein Trace A Urine Glucose (UA) Negative Urine Ketones 2+ A Urine Blood Negative Urine Nitrite Negative Urine Bilirubin Negative Urine Urobilinogen 0.2 Ur Leukocyte Esterase Negative Urine RBC Urine WBC Ur Squamous Epith Cells Urine Bacteria Lab Acknowledgement Test Added Blood Type Antibody Screen Crossmatch ([facility]) 03/25/23 10:51 WBC RBC Hgb Hct MCV MCH MCHC RDW Coeff of Rolo Plt Count Neut % (Auto) Lymph % (Auto) Vernon % (Auto) Eos % (Auto) Baso % (Auto) Neut # (Auto) Lymph # (Auto) Vernon # (Auto) Eos # (Auto) Baso # (Auto) Abs Immat Gran (auto) Imm/Tot Granulo (auto) INR Sodium Potassium Chloride Carbon Dioxide Anion Gap BUN Creatinine Estimated Creat Clear Estimated GFR Glucose Calcium Procalcitonin Urine Color Yellow Urine Appearance Clear Urine pH 7.0 Ur Specific [place] 1.015 Urine Protein Trace A Urine Glucose (UA) Negative Urine Ketones 2+ A Urine Blood Negative Urine Nitrite Negative Urine Bilirubin Negative Urine Urobilinogen 0.2 Ur Leukocyte Esterase Negative Urine RBC 0-2 Urine WBC 0-2 Ur Squamous Epith Cells Few Urine Bacteria None Lab Acknowledgement Blood Type Antibody Screen Crossmatch ([facility])
[2023-03-25 15:58] LABS: Hemoglobin* 9.4 gm/dL (12.0-16.0)
[2023-03-25 20:11] LABS: RBC Urine 0-2 (0-2); Squamous Epithelial Cell Urine Few (None-Few); WBC Urine 0-2 (0-5)
[2023-03-25] MEDS: NYSTATIN POWDER 1 APPLIC TOPICAL (22:09)
--- NOTE | 2023-03-25 23:15 | PC.NURSE ---
End of Shift: patient pleasant and cooperative. Afebrile. Tolerating clear liquids with no nausea. C/o pain in left hip with activity, PRN [place] x1. Up to chair with 2 assist, walker and gait belt, ceiling lift to get back to bed. Frequent turn and reposition. O2 sats decrease to 85% on room air, 1L NC to keep sats greater than 90%. Tele showing NSR with heart rate in the 80s-105.
[2023-03-26] VITALS (58 sets, daily range): BP systolic 123–166; BP diastolic 62–97; PULSE 60–112; RESP 16–18; TEMP 36.3–37; O2SAT 81–100
[2023-03-26] MEDS: SODIUM CHLORIDE 0.9 % (FLUSH) 10 ML SYRINGE 5 ML IVF ×3 (01:39→22:08)
[2023-03-26] MEDS: MORPHINE 2 MG/ML inj IVP (01:39)
[2023-03-26] MEDS: MELATONIN 3 MG TABLET PO (01:40)
--- NOTE | 2023-03-26 06:49 | PC.NURSE ---
END OF SHIFT NOTE: PT PLEASANT AND COOPERATIVE, CONFUSED ON OCCASION. A&Ox2. DENIES CP, SOB, N/V. AMBULATES WITH WALKER, GB, A2; UTILIZED CL TO MOVE PT TO CHAIR. PT SLEPT IN RECLINER. OVERNIGHT PT HAS BEEN TURNED AND REPOSITIONED FOR OFFLOADING AND COMFORT. BROWNE DRAINING LIGHT MAHSA URINE. TELE READS NSR. VSS ON 0.5L NC; AFEBRILE. PRN MORPHINE ADMINISTERED x1 FOR PAIN CONTROL.?CALL LIGHT WITHIN PT?S REACH.?
[2023-03-26 07:17] LABS: INR 1.06 (0.91-1.10); Prothrombin Time 14.5 Seconds
[2023-03-26 07:37] LABS: Chloride* 108 mmol/L (96-114); Potassium* 3.9 mmol/L (3.6-5.1); Sodium* 132 mmol/L (135-149)
[2023-03-26 07:40] LABS: Anion Gap -1 mEq/L (7-15); Carbon Dioxide* 25 mmol/L (20-32); Creatinine* 0.7 mg/dL (0.5-1.5); Est. Creatinine Clearance* 42.89; Estimated Glomerular Filt Rate 88 ml/min
[2023-03-26 07:41] LABS: Blood Urea Nitrogen* 18 mg/dL (7-30); Calcium* 8.2 mg/dL (8.4-10.6); Glucose* 85 mg/dL (60-115); Magnesium* 2.3 mg/dL (1.5-2.6)
[2023-03-26] MEDS: predniSONE 5 MG TABLET 10 MG PO ×2 (07:48→17:46)
[2023-03-26 08:56] LABS: Basophils Percent Auto 0.4 % (0.0-3.0); Eosinophils Percent Auto 0.2 % (0.0-7.0); Hematocrit 28.8 % (33.0-51.0); Immature Granulocytes Pct Auto 0.1 %; Lymphocytes Percent Auto 8.2 % (20-44); Mean Corpuscular HGB Conc 31 gm/dL (32-36); Mean Corpuscular Hemoglobin 31 pg (26-34); Mean Corpuscular Volume 99 fL (80-100); Monocytes Percent Auto 8.4 % (0.0-11.0); Neutrophils Percent Auto 82.7 % (42.0-72.0); Platelet Count* 78 K/uL (140-440); RDW Coefficient of Variation % 18.2 % (11.5-15.5); White Blood Count* 14.77 K/uL (4.50-11.00)
[2023-03-26 08:59] LABS: Slide Review Reflex No
[2023-03-26] MEDS: METOPROLOL SUCCINATE (XL) 25 MG TAB PO (09:09)
[2023-03-26] MEDS: POTASSIUM CHLORIDE 10 MEQ CAPSULE ER 20 MEQ PO ×2 (09:10→22:07)
[2023-03-26] MEDS: LOSARTAN POTASSIUM 50 MG TABLET 25 MG PO (09:13)
[2023-03-26] MEDS: PANTOPRAZOLE SODIUM 40 MG INJ IVP ×2 (09:13→22:08)
--- NOTE | 2023-03-26 15:22 | PC.SOCIAL ---
Discharge planning- Met with pt and pt's daughter, Giselle, to discuss discharge plans. Therapy recommendation is SNF for rehab. Pt does not want to go to [facility] due to a past bad experience. Pt's daughter and pt inform they would like [facility] or [facility] as they would like pt to be closer to [place]. Contacted the following SNF's for placement. 1. [facility]- Phone call to Ami in admissions at [phone], they have an opening and will assess. Faxed referral to [phone]. 2. [facility]- Phone call to Liliane in admissions at [phone], they have an opening and will assess. Faxed referral to [phone]. Social work will continue to follow up as needed.
--- NOTE | 2023-03-26 15:43 | PM.IMPN1 ---
Progress Note: A&P Assessment and plan (1) Gastrointestinal bleeding: Problem details: Patient has acute on chronic anemia with epigastric pain, hematemesis, dark stools. Supratherapeutic INR. Likely an upper GI bleed. H/o PUD 2006, colitis 2021, GERD on chronic PPI. 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 Martin notable for dark fluid, diverticulum without evidence of active bleed. She also reviewed CT showing circumferential bowel wall thickening. While this may be chronic with history of colitis, would be concerned if patient deteriorates, recommending transfer 03/25: No further vomiting or stools. Hemoglobin 7.5 this morning, 7.9 on recheck. Mild leukocytosis, downtrending. BC negative, Procalcitonin negative, UA unremarkable. Will discontinue IV fluids when adequate oral intake, query dilutional component 03/26: Still weak. Hemoglobin 9 after 1 unit of packed red blood cell transfusion. Status: Acute (2) Long-term (current) use of anticoagulants, INR goal 2.0-3.0: Problem details: Chronic. Indication: DVT/PE, also history of AFib INR 6.0 on admission, currently 1.14 following vitamin K administration on admission Continue to hold Coumadin (03/25) will need to resume prior to discharge, if hemoglobin stabilizes Status: Acute (3) Atrial fibrillation: Problem details: 03/25: Acute, suspected in setting of poor perfusion, anemia. -Inadequate response to oral metoprolol and IV bumps. Moved to CCU status. Diltiazem drip initiated, goal heart rate 100-119 for continued perfusion. Discontinued when goal rate med. 1 unit PRBC transfused. Awaiting repeat hemoglobin. Continue IV metoprolol 2.5 mg q.6 hours and oral metoprolol q.a.m. -On chronic anticoagulation, held on admission Status: Acute (4) Weakness: Problem details: Acute on chronic related to acute illness PT/OT consults suggest she needs additional rehabilitation before she can safely moved to her independent living apartment. 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 H/o rheumatoid arthritis, SLE Home dose chronic prednisone 7 mg daily Continues increased prednisone 10 mg b.i.d. (day 2) pending improved clinical course. Will check Mag and TSH Methotrexate held Status: Acute (6) Hypertension: Problem details: Continue metoprolol given history of atrial fibrillation, oral and IV Restarted losartan (03/25) Continue to hold furosemide, monitoring for fluid overload Weights: 03/24 54.4 kg, 03/25 59.9 kg, 03/26 59.6 kg. Status: Acute (7) Hypokalemia: Problem details: Potassium 3.3-3.5. Continue supplement, increased to 20 mEq b.i.d., and monitor. Mild hyponatremia, resolved Status: Acute (8) Dilated cardiomyopathy: Problem details: With fluid resuscitation and possible blood transfusion will need to monitor cardiac respiratory status closely. Discontinue IVF with adequate oral intake Status: Acute (9) Anemia of chronic disease: Problem details: Now with acute GI bleeding causing acute anemia in the face of chronic anemia of chronic disease Status: Acute (10) Elevated troponin: Problem details: Continues with no complaint of chest pain. Suspect this is stress induced ischemia. Not a candidate for antiplatelet or anticoagulation at this time due to bleeding Status: Acute Plan 1. Revealed above impression and plans with patient. 2. Answered her questions. 3. Patient agreeable with above stated plans and recommendations. Time Spent With Patient Total time spent: 40 minutes Subjective Date Seen: 03/26/23 Interval history: Hospital day 4. Patient states she has feeling a little better than she has in the past. Still weak. Agreeable to transitional care services before she can consider returning to her independent apartment living. No overt bleeding. Denies orthostasis, lightheadedness, dizziness. Tolerating oral intake. Denies nausea or vomiting. Denies abdominal pain. No diarrhea or constipation. Exam Narrative: Exam Narrative: Appears comfortable. No acute distress. Vision and hearing are grossly adequate. Alert and oriented to self, place, time, situation. Converted to normal sinus rhythm. Scattered rhonchi in lungs otherwise lungs are clear. Heart tones with regular rhythm. Abdomen with active bowel sounds, soft, nontender. Extremities without edema. Skin is intact. No focal motor neurologic deficits. Requires assist of 1 for transfers and gait. Const: Vital Signs, click to edit/add: Vital Signs - 24 hr 03/25/23 16:00 03/25/23 18:00 03/25/23 19:00 Temperature 98.0 F 99.4 F Pulse Rate 101 H Pulse Rate [Right Pulse Oximeter] 105 H 84 Respiratory Rate 20 18 Blood Pressure [Le ft Arm] Blood Pressure [Ri ght Arm] 130/75 143/70 H Pulse Oximetry 94 93 Oxygen Delivery Me thod Nasal Cannula Nasal Cannula Oxygen Flow Rate 1 1 03/25/23 20:00 03/25/23 22:00 03/25/23 23:40 Temperature 97.7 F 97.7 F Pulse Rate 87 Pulse Rate [Right Pulse Oximeter] 104 H 82 Respiratory Rate 18 20 Blood Pressure [Le ft Arm] 151/83 H 134/72 Blood Pressure [Ri ght Arm] Pulse Oximetry 93 92 Oxygen Delivery Me thod Nasal Cannula Nasal Cannula Oxygen Flow Rate 1 1 03/25/23 23:40 03/25/23 23:40 03/26/23 01:40 Temperature 99.3 F 98.6 F Pulse Rate Pulse Rate [Right Pulse Oximeter] 98 98 85 Respiratory Rate 18 18 18 Blood Pressure [Le ft Arm] 173/81 H Blood Pressure [Ri ght Arm] 166/75 H Pulse Oximetry 91 94 Oxygen Delivery Me thod Nasal Cannula Nasal Cannula Oxygen Flow Rate 1 0.5 03/26/23 03:00 03/26/23 04:00 03/26/23 04:00 Temperature 98.0 F Pulse Rate 96 Pulse Rate [Right Pulse Oximeter] 70 70 Respiratory Rate 18 18 Blood Pressure [Le ft Arm] 130/62 Blood Pressure [Ri ght Arm] Pulse Oximetry 95 Oxygen Delivery Me thod Nasal Cannula Oxygen Flow Rate 0.5 03/26/23 06:00 03/26/23 07:00 03/26/23 07:00 Temperature 97.4 F L Pulse Rate 89 Pulse Rate [Right Pulse Oximeter] 94 Respiratory Rate 16 Blood Pressure [Le ft Arm] 143/78 H Blood Pressure [Ri ght Arm] Pulse Oximetry 94 97 Oxygen Delivery Me thod Nasal Cannula Nasal Cannula Oxygen Flow Rate 0.5 0.5 03/26/23 07:55 03/26/23 08:00 03/26/23 12:16 Temperature 97.7 F Pulse Rate Pulse Rate [Right Pulse Oximeter] 88 82 85 Respiratory Rate 16 16 Blood Pressure [Le ft Arm] 150/72 H 123/97 H Blood Pressure [Ri ght Arm] Pulse Oximetry 98 93 Oxygen Delivery Me thod Nasal Cannula Nasal Cannula Oxygen Flow Rate 0.5 03/26/23 15:25 Temperature Pulse Rate 77 Pulse Rate [Right Pulse Oximeter] Respiratory Rate Blood Pressure [Le ft Arm] Blood Pressure [Ri ght Arm] Pulse Oximetry Oxygen Delivery Me thod Oxygen Flow Rate Labs Labs: Laboratory Results - last 24 hr 03/23/23 03/25/23 03/25/23 13:35 10:24 15:42 WBC RBC Hgb 9.4 L Hct MCV MCH MCHC RDW Coeff of Rolo Plt Count Neut % (Auto) Lymph % (Auto) [place] % (Auto) Eos % (Auto) Baso % (Auto) Neut # (Auto) Lymph # (Auto) [place] # (Auto) Eos # (Auto) Baso # (Auto) Abs Immat Gran (auto) Imm/Tot Granulo (auto) INR Sodium Potassium Chloride Carbon Dioxide Anion Gap BUN Creatinine Estimated Creat Clear Estimated GFR Glucose Calcium Magnesium TSH Urine RBC 0-2 Urine WBC 0-2 Ur Squamous Epith Cells Few Urine Bacteria None Crossmatch (AHG) See Detail 03/26/23 06:00 WBC 14.77 H RBC 2.90 L Hgb 9.0 L Hct 28.8 L MCV 99 MCH 31 MCHC 31 L RDW Coeff of Rolo 18.2 H Plt Count 78 L Neut % (Auto) 82.7 H Lymph % (Auto) 8.2 L [place] % (Auto) 8.4 Eos % (Auto) 0.2 Baso % (Auto) 0.4 Neut # (Auto) 12.20 H Lymph # (Auto) 1.20 [place] # (Auto) 1.20 H Eos # (Auto) 0.00 Baso # (Auto) 0.10 Abs Immat Gran (auto) 0.00 Imm/Tot Granulo (auto) 0.1 INR 1.06 Sodium 132 L Potassium 3.9 Chloride 108 Carbon Dioxide 25 Anion Gap -1 L BUN 18 Creatinine 0.7 Estimated Creat Clear 42.89 Estimated GFR 88 Glucose 85 Calcium 8.2 L Magnesium 2.3 TSH 2.120 Urine RBC Urine WBC Ur Squamous Epith Cells Urine Bacteria Crossmatch (AHG)
--- NOTE | 2023-03-26 17:04 | PC.NURSE ---
Pt alert and oriented. Pt had pain during shift that could not be rate; See EMAR for intervention. Pt removed from CCU status around 1045am. Pt?s daughter at bedside most of shift. Pt up to chair multiple times. Pt assist of two with walker and gait belt.? ?
--- NOTE | 2023-03-26 17:18 | PC.NURSE ---
Pt had flushing of cheeks and bruising around eyes; Hospitalist notified and assessed Pt.
[2023-03-26 19:18] LABS: Hemoglobin* 9.5 gm/dL (12.0-16.0)
[2023-03-26] MEDS: NYSTATIN POWDER 1 APPLIC TOPICAL (22:06)
[2023-03-26] MEDS: HYDROCODONE-ACETAMIN 5-325 MG 1 TAB PO (23:08)
[2023-03-27] VITALS (8 sets, daily range): BP systolic 139–172; BP diastolic 70–79; PULSE 65–149; RESP 16–18; TEMP 36.6–37.1; O2SAT 90–98
--- NOTE | 2023-03-27 06:50 | PC.NURSE ---
Pt pleasant and cooperative. Pain meds given around 2300 which helped her and she had no c/o pain the rest of noc. Turn and repositioned Q2 hrs. Colindres patent and draing well. VSS.
[2023-03-27 07:22] LABS: Basophils Percent Auto 0.2 % (0.0-3.0); Eosinophils Percent Auto 0.9 % (0.0-7.0); Hematocrit 30.8 % (33.0-51.0); Hemoglobin* 9.5 gm/dL (12.0-16.0); Immature Granulocytes Pct Auto 0.2 %; Lymphocytes Percent Auto 10.6 % (20-44); Mean Corpuscular HGB Conc 31 gm/dL (32-36); Mean Corpuscular Hemoglobin 31 pg (26-34); Mean Corpuscular Volume 99 fL (80-100); Monocytes Percent Auto 9.6 % (0.0-11.0); Neutrophils Percent Auto 78.5 % (42.0-72.0); Platelet Count* 143 K/uL (140-440); Red Blood Count 3.11 m/uL (4.00-5.20); White Blood Count* 12.75 K/uL (4.50-11.00)
[2023-03-27 07:24] LABS: Slide Review Reflex No
[2023-03-27 07:36] LABS: Chloride* 107 mmol/L (96-114); Potassium* 4.2 mmol/L (3.6-5.1); Sodium* 140 mmol/L (135-149)
[2023-03-27 07:38] LABS: INR 1.09 (0.91-1.10); Prothrombin Time 14.8 Seconds
[2023-03-27 07:39] LABS: Anion Gap 7 mEq/L (7-15); Blood Urea Nitrogen* 18 mg/dL (7-30); Carbon Dioxide* 26 mmol/L (20-32); Creatinine* 0.6 mg/dL (0.5-1.5); Est. Creatinine Clearance* 42.89; Estimated Glomerular Filt Rate 91 ml/min
[2023-03-27 07:40] LABS: Calcium* 8.5 mg/dL (8.4-10.6); Glucose* 80 mg/dL (60-115)
[2023-03-27] MEDS: HYDROCODONE-ACETAMIN 5-325 MG 1 TAB PO ×2 (07:56→16:13)
[2023-03-27] MEDS: predniSONE 5 MG TABLET 10 MG PO ×2 (07:56→21:09)
[2023-03-27] MEDS: METOPROLOL SUCCINATE (XL) 25 MG TAB PO (09:07)
[2023-03-27] MEDS: PANTOPRAZOLE SODIUM 40 MG INJ IVP ×2 (09:07→21:08)
[2023-03-27] MEDS: LOSARTAN POTASSIUM 50 MG TABLET 25 MG PO (09:07)
[2023-03-27] MEDS: POTASSIUM CHLORIDE 10 MEQ CAPSULE ER 20 MEQ PO ×2 (09:08→21:10)
[2023-03-27] MEDS: SODIUM CHLORIDE 0.9 % (FLUSH) 10 ML SYRINGE 5 ML IVF ×2 (09:13→21:11)
[2023-03-27] MEDS: METOPROLOL TARTRATE 1 MG/ML inj 2.5 MG IVP (10:45)
--- NOTE | 2023-03-27 17:40 | P.IMPN_ITS ---
Progress Note: A&P Assessment and plan (1) Gastrointestinal bleeding: Problem details: Patient has acute on chronic anemia with epigastric pain, hematemesis, dark stools. Supratherapeutic INR. Likely an upper GI bleed. H/o PUD 2006, colitis 2021, GERD on chronic PPI. Denies previous history of bleeds CT shows enteritis Hemoglobin of 8.1 on admission (previously 11.5), decreased to 6.8 overnight, currently 9.0 following 1 unit PRBC Continue IV fluids 75 mL/HR, ppi b.i.d., nausea and pain management as needed residential monitor 03/24: Endoscopy with Dr. Martin notable for dark fluid, diverticulum without evidence of active bleed. She also reviewed CT showing circumferential bowel wall thickening. While this may be chronic with history of colitis, would be concerned if patient deteriorates, recommending transfer 03/25: No further vomiting or stools. Hemoglobin 7.5 this morning, 7.9 on recheck. Mild leukocytosis, downtrending. BC negative, Procalcitonin negative, UA unremarkable. Will discontinue IV fluids when adequate oral intake, query dilutional component 03/26: Still weak. Hemoglobin 9 after 1 unit of packed red blood cell transfusion. 03/27: Hemoglobin 9.5. Status: Acute (2) Long-term (current) use of anticoagulants, INR goal 2.0-3.0: Problem details: Chronic. Indication: DVT/PE, also history of AFib INR 6.0 on admission, currently 1.14 following vitamin K administration on admission Continue to hold Coumadin (03/25). Given that hemoglobin is stabilize will reinitiate warfarin tomorrow. Continue with daily INR. Status: Acute (3) Atrial fibrillation: Problem details: 03/25: Acute, suspected in setting of poor perfusion, anemia. -Inadequate response to oral metoprolol and IV bumps. Moved to CCU status. Diltiazem drip initiated, goal heart rate 100-119 for continued perfusion. Discontinued when goal rate med. 1 unit PRBC transfused. Awaiting repeat hemo globin. Continue IV metoprolol 2.5 mg q.6 hours and oral metoprolol q.a.m. -On chronic anticoagulation, held on admission, will resume tomorrow. Status: Acute (4) Weakness: Problem details: Acute on chronic related to acute illness PT/OT consults suggest she needs additional rehabilitation before she can safely moved to her independent living apartment. 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 H/o rheumatoid arthritis, SLE Home dose chronic prednisone 7 mg daily Continues increased prednisone 10 mg b.i.d. (day 2) pending improved clinical course. Will check Mag and TSH Methotrexate held Status: Acute (6) Hypertension: Problem details: Continue metoprolol given history of atrial fibrillation, oral and IV Restarted losartan (03/25) Continue to hold furosemide, monitoring for fluid overload Weights: 03/24 54.4 kg, 03/25 59.9 kg, 03/26 59.6 kg. Status: Acute (7) Hypokalemia: Problem details: Potassium 3.3-3.5. Continue supplement, increased to 20 mEq b.i.d., and monitor. Mild hyponatremia, resolved Status: Acute (8) Dilated cardiomyopathy: Problem details: With fluid resuscitation and possible blood transfusion will need to monitor cardiac respiratory status closely. Discontinue IVF with adequate oral intake Status: Acute (9) Anemia of chronic disease: Problem details: Now with acute GI bleeding causing acute anemia in the face of chronic anemia of chronic disease Status: Acute (10) Elevated troponin: Problem details: Continues with no complaint of chest pain. Suspect this is stress induced ischemia. Not a candidate for antiplatelet or anticoagulation at this time due to bleeding Status: Acute Plan 1. Reviewed with patient and daughter. Answered their questions. 2. They continue be agreeable of stated plans and recommendations. Time Spent With Patient Total time spent: 45 minutes Subjective Date Seen: 03/27/23 Interval history: Hospital day 5. Patient had transient episode of paroxysmal atrial fibrillation with rapid ventricular response today. Back in normal sinus rhythm now. Patient states she has feeling a little better than she has in the past. Still weak. Continues to be agreeable to transitional care services before returning to her independent apartment living. No overt bleeding. Denies orthostasis, lightheadedness, dizziness. Tolerating oral intake. Denies nausea or vomiting. Denies abdominal pain. No diarrhea or constipation. Exam Narrative: Exam Narrative: For while heart rates were in the 150 range today. Heart rate back to 70s. Denied symptoms in association with tachycardia. Appears comfortable no acute distress. Vision and hearing are adequate. Alert and oriented to self, place, time, and for the most part to situation. Acknowledges sense of despair because of her declining health. Lungs are clear. Heart tones with irregular rhythm and tachycardia for a while. Responded well to metoprolol IV. Converted back to normal sinus rhythm. Continues on telemetry. Abdomen with active bowel sounds, soft, nontender. Extremities with end-stage changes of rheumatoid arthritis. Generalized weakness. No focal motor neurologic deficits. Const: Vital Signs, click to edit/add: Vital Signs - 24 hr 03/26/23 21:00 03/26/23 23:00 03/26/23 23:00 Temperature 98.5 F 98.5 F Pulse Rate Pulse Rate [Right Pulse Oximeter] 78 78 Respiratory Rate 18 18 Blood Pressure [Le ft Arm] 166/91 H 166/91 H Pulse Oximetry 91 91 91 Oxygen Delivery Me thod Nasal Cannula Nasal Cannula Nasal Cannula Oxygen Flow Rate 0.5 0.5 0.5 03/27/23 02:18 03/27/23 03:00 03/27/23 07:00 Temperature 98.3 F Pulse Rate 65 Pulse Rate [Right Pulse Oximeter] 106 H 81 Respiratory Rate 18 18 Blood Pressure [Le ft Arm] 172/77 H Pulse Oximetry 92 Oxygen Delivery Me thod Room Air Oxygen Flow Rate 03/27/23 07:00 03/27/23 07:00 03/27/23 07:00 Temperature 97.8 F Pulse Rate 75 Pulse Rate [Right Pulse Oximeter] 81 Respiratory Rate 18 18 Blood Pressure [Le ft Arm] 172/79 H Pulse Oximetry 96 92 Oxygen Delivery Me thod Nasal Cannula Nasal Cannula Oxygen Flow Rate 0.5 0.5 03/27/23 11:00 Temperature 98.7 F Pulse Rate Pulse Rate [Right Pulse Oximeter] 149 H Respiratory Rate 18 Blood Pressure [Le ft Arm] 139/71 Pulse Oximetry 93 Oxygen Delivery Me thod Nasal Cannula Oxygen Flow Rate 0.5 Documenting provider has reviewed patient's vital signs: yes Labs Labs: Laboratory Results - last 24 hr 03/26/23 03/27/23 19:15 06:23 WBC 12.75 H RBC 3.11 L Hgb 9.5 L 9.5 L Hct 30.8 L MCV 99 MCH 31 MCHC 31 L RDW Coeff of Rolo 18.0 H Plt Count 143 Neut % (Auto) 78.5 H Lymph % (Auto) 10.6 L [place] % (Auto) 9.6 Eos % (Auto) 0.9 Baso % (Auto) 0.2 Neut # (Auto) 10.00 H Lymph # (Auto) 1.40 [place] # (Auto) 1.20 H Eos # (Auto) 0.10 Baso # (Auto) 0.00 Abs Immat Gran (auto) 0.00 Imm/Tot Granulo (auto) 0.2 INR 1.09 Sodium 140 Potassium 4.2 Chloride 107 Carbon Dioxide 26 Anion Gap 7 BUN 18 Creatinine 0.6 Estimated Creat Clear 42.89 Estimated GFR 91 Glucose 80 Calcium 8.5
[2023-03-27] MEDS: MELATONIN 3 MG TABLET PO (21:11)
[2023-03-28] VITALS (8 sets, daily range): BP systolic 155–188; BP diastolic 78–90; PULSE 67–82; RESP 16; TEMP 36.3–36.9; O2SAT 93–97
[2023-03-28] MEDS: HYDROCODONE-ACETAMIN 5-325 MG 1 TAB PO ×2 (00:09→21:36)
--- NOTE | 2023-03-28 05:24 | PC.NURSE ---
Pt is pleasant and cooperative. She was restless the start of the shift. Gotten up x2 as she wanted to walk. Once standing pt wanted to go back to bed. At 0430 this am gotten up and in to the chair. She tolerated this well. Pain med given at midnight and pt then slept well. Ice applied to left hip x 2 . Pt is now in chair and sleeping.
[2023-03-28 08:14] LABS: Chloride* 104 mmol/L (96-114); Potassium* 4.6 mmol/L (3.6-5.1); Sodium* 136 mmol/L (135-149)
[2023-03-28 08:16] LABS: Creatinine* 0.4 mg/dL (0.5-1.5); Est. Creatinine Clearance* 42.89; Estimated Glomerular Filt Rate 101 ml/min
[2023-03-28 08:17] LABS: Anion Gap 6 mEq/L (7-15); Blood Urea Nitrogen* 15 mg/dL (7-30); Calcium* 8.7 mg/dL (8.4-10.6); Carbon Dioxide* 26 mmol/L (20-32); Glucose* 88 mg/dL (60-115)
[2023-03-28] MEDS: predniSONE 5 MG TABLET 10 MG PO ×2 (09:13→18:13)
[2023-03-28] MEDS: PANTOPRAZOLE SODIUM 40 MG INJ IVP ×2 (09:13→21:36)
[2023-03-28] MEDS: POTASSIUM CHLORIDE 10 MEQ CAPSULE ER 20 MEQ PO ×2 (09:13→21:35)
[2023-03-28] MEDS: SODIUM CHLORIDE 0.9 % (FLUSH) 10 ML SYRINGE 5 ML IVF ×2 (09:14→20:06)
[2023-03-28] MEDS: LOSARTAN POTASSIUM 50 MG TABLET 25 MG PO (09:14)
[2023-03-28] MEDS: METOPROLOL SUCCINATE (XL) 25 MG TAB PO (09:16)
[2023-03-28] MEDS: WARFARIN 3 MG TABLET PO (14:18)
--- NOTE | 2023-03-28 16:06 | P.IMPN_ITS ---
Progress Note: A&P Assessment and plan (1) Gastrointestinal bleeding: Problem details: Patient has acute on chronic anemia with epigastric pain, hematemesis, dark stools. Supratherapeutic INR. Likely an upper GI bleed. H/o PUD 2006, colitis 2021, GERD on chronic PPI. 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 Martin notable for dark fluid, diverticulum without evidence of active bleed. She also reviewed CT showing circumferential bowel wall thickening. While this may be chronic with history of colitis, would be concerned if patient deteriorates, recommending transfer 03/25: No further vomiting or stools. Hemoglobin 7.5 this morning, 7.9 on recheck. Mild leukocytosis, downtrending. BC negative, Procalcitonin negative, UA unremarkable. Will discontinue IV fluids when adequate oral intake, query dilutional component 03/26: Still weak. Hemoglobin 9 after 1 unit of packed red blood cell transfusion. 03/27: Hemoglobin 9.5. Status: Acute (2) Long-term (current) use of anticoagulants, INR goal 2.0-3.0: Problem details: Chronic. Indication: DVT/PE, also history of AFib INR 6.0 on admission, currently 1.14 following vitamin K administration on admission Continue to hold Coumadin (03/25). Given that hemoglobin is stabilize will reinitiate warfarin tomorrow. Continue with daily INR. Status: Acute (3) Atrial fibrillation: Problem details: 03/25: Acute, suspected in setting of poor perfusion, anemia. -Inadequate response to oral metoprolol and IV bumps. Moved to CCU status. Diltiazem drip initiated, goal heart rate 100-119 for continued perfusion. Discontinued when goal rate med. 1 unit PRBC transfused. Awaiting repeat hemo globin. Continue IV metoprolol 2.5 mg q.6 hours and oral metoprolol q.a.m. -On chronic anticoagulation, held on admission, will resume today with Pharmacy support. Status: Acute (4) Weakness: Problem details: Acute on chronic related to acute illness PT/OT consults suggest she needs additional rehabilitation before she can safely moved to her independent living apartment. 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 H/o rheumatoid arthritis, SLE Home dose chronic prednisone 7 mg daily Continues increased prednisone 10 mg b.i.d. (day 2) pending improved clinical c ourse. Will check Mag and TSH Methotrexate held Status: Acute (6) Hypertension: Problem details: Continue metoprolol given history of atrial fibrillation, oral and IV Restarted losartan (03/25) Continue to hold furosemide, monitoring for fluid overload Weights: 03/24 54.4 kg, 03/25 59.9 kg, 03/26 59.6 kg. Status: Acute (7) Hypokalemia: Problem details: Potassium 3.3-3.5. Continue supplement, increased to 20 mEq b.i.d., and monitor. Mild hyponatremia, resolved Status: Acute (8) Dilated cardiomyopathy: Problem details: With fluid resuscitation and possible blood transfusion will need to monitor cardiac respiratory status closely. Discontinue IVF with adequate oral intake Status: Acute (9) Anemia of chronic disease: Problem details: Now with acute GI bleeding causing acute anemia in the face of chronic anemia of chronic disease Status: Acute (10) Elevated troponin: Problem details: Continues with no complaint of chest pain. Suspect this is stress induced ischemia. Not a candidate for antiplatelet or anticoagulation at this time due to bleeding Status: Acute Plan 1. Reviewed impression with patient today. 2. Discussed with patient and her daughter last night. 3. Continue with plan as specified above, including [facility] facility transitional care services. Time Spent With Patient Total time spent: 40 minutes Subjective Date Seen: 03/28/23 Interval history: Hospital day 6. Had a transient episode of paroxysmal atrial fibrillation with rapid ventricular response yesterday, but has remained in normal sinus rhythm since. Still weak. Continues to require assist with 5/6 ADLs, still able to feed self after food prep and setup. Continues to be agreeable to transitional care services before returning to her independent apartment living. No overt bleeding. Denies orthostasis, lightheadedness, dizziness. Tolerating oral intake. Denies nausea or vomiting. Denies abdominal pain. No diarrhea or constipation. Exam Narrative: Exam Narrative: I examined patient in her hospital room. Appears comfortable and in no acute distress. Becomes tearful at times when discussing possibility of long-term care. Alert and oriented to self, place, time, but not entirely understanding or willing to acknowledge her situation. Lungs are clear. Heart tones with regular rhythm. Abdomen benign. End stage changes of rheumatoid arthritis of upper extremities and lower extremities. Generalized weakness without focal motor neurologic deficits. Const: Vital Signs, click to edit/add: Vital Signs - 24 hr 03/27/23 19:00 03/27/23 20:57 03/27/23 23:00 Temperature 98.2 F Pulse Rate 78 Pulse Rate [Right Pulse Oximeter] 69 Respiratory Rate 16 Blood Pressure [Le ft Arm] 151/70 H Pulse Oximetry 98 97 Oxygen Delivery Me thod Nasal Cannula Nasal Cannula Oxygen Flow Rate 0.5 0.5 03/27/23 23:00 03/27/23 23:00 03/28/23 00:12 Temperature 98.5 F Pulse Rate 73 Pulse Rate [Right Pulse Oximeter] 76 71 Respiratory Rate 16 Blood Pressure [Le ft Arm] 173/90 H Pulse Oximetry 97 Oxygen Delivery Me thod Nasal Cannula Oxygen Flow Rate 0.5 03/28/23 03:00 03/28/23 03:00 03/28/23 07:00 Temperature 97.4 F L Pulse Rate 69 Pulse Rate [Right Pulse Oximeter] 78 76 Respiratory Rate 16 16 Blood Pressure [Le ft Arm] 174/81 H Pulse Oximetry 94 Oxygen Delivery Me thod Room Air Oxygen Flow Rate 03/28/23 07:00 03/28/23 07:00 03/28/23 07:00 Temperature 97.4 F L Pulse Rate 76 Pulse Rate [Right Pulse Oximeter] 74 Respiratory Rate 16 16 Blood Pressure [Le ft Arm] 174/79 H Pulse Oximetry 93 93 Oxygen Delivery Me thod Room Air Room Air Oxygen Flow Rate 0.5 0.5 03/28/23 11:00 Temperature 97.6 F Pulse Rate Pulse Rate [Right Pulse Oximeter] 82 Respiratory Rate 16 Blood Pressure [Le ft Arm] 155/81 H Pulse Oximetry 97 Oxygen Delivery Me thod Nasal Cannula Oxygen Flow Rate 0.5 Documenting provider has reviewed patient's vital signs: yes Labs Labs: Laboratory Results - last 24 hr 03/28/23 07:45 WBC Cancelled Corrected WBC Cancelled RBC Cancelled Hgb Cancelled Hct Cancelled MCV Cancelled MCH Cancelled MCHC Cancelled RDW Coeff of Rolo Cancelled Plt Count Cancelled Neut % (Auto) Cancelled Lymph % (Auto) Cancelled [place] % (Auto) Cancelled Eos % (Auto) Cancelled Baso % (Auto) Cancelled Neut # (Auto) Cancelled Lymph # (Auto) Cancelled [place] # (Auto) Cancelled Eos # (Auto) Cancelled Baso # (Auto) Cancelled Abs Immat Gran (auto) Cancelled Imm/Tot Granulo (auto) Cancelled INR Cancelled Sodium 136 Potassium 4.6 Chloride 104 Carbon Dioxide 26 Anion Gap 6 L BUN 15 Creatinine 0.4 L Estimated Creat Clear 42.89 Estimated GFR 101 Glucose 88 Calcium 8.7
[2023-03-28 16:57] LABS: Hemoglobin* 11.6 gm/dL (12.0-16.0)
[2023-03-28 17:11] LABS: INR 1.06 (0.91-1.10); Prothrombin Time 14.4 Seconds
--- NOTE | 2023-03-28 19:03 | PC.NURSE ---
patient alert and oriented. denies pain. tolerates reg diet. VSS. O.5% NC sats 95%. up to chair and bed throughout shift.
[2023-03-28] MEDS: METOPROLOL TARTRATE 1 MG/ML inj 2.5 MG IVP (20:03)
[2023-03-28] MEDS: ONDANSETRON 2 MG/ML inj 4 MG IVP (20:06)
[2023-03-28] MEDS: MELATONIN 3 MG TABLET PO (21:35)
[2023-03-28] MEDS: PROCHLORPERAZINE 5 MG/ML VIAL IV (22:47)
--- NOTE | 2023-03-29 05:19 | PC.NURSE ---
Pt pleasant and cooperative. did have some nausea aroung 7-8 mike. Zofran given IV. later aroung 9 pt wanted pain pil. Night time meds given along with Melatonin and Zofran and Hyddroodone/tylenol rested for around 1 hr. She has slept in the chair for a majority of the night. . Did give her compazine fo help wih the nause. It did seem to help. no c/o nausea this am. Pt is just restless. Doesnt know what she wants.
[2023-03-29 07:00] VITALS: BP 147/75; PULSE 89; PULSE 91; RESP 20; TEMP 36.6; O2SAT 97
[2023-03-29] MEDS: POTASSIUM CHLORIDE 10 MEQ CAPSULE ER 20 MEQ PO ×2 (08:39→20:31)
[2023-03-29] MEDS: LOSARTAN POTASSIUM 50 MG TABLET 25 MG PO (08:39)
[2023-03-29] MEDS: predniSONE 5 MG TABLET 10 MG PO ×2 (08:39→17:32)
[2023-03-29] MEDS: PANTOPRAZOLE SODIUM 40 MG INJ IVP ×2 (08:40→20:31)
[2023-03-29] MEDS: SODIUM CHLORIDE 0.9 % (FLUSH) 10 ML SYRINGE 5 ML IVF ×2 (08:40→20:33)
[2023-03-29] MEDS: METOPROLOL SUCCINATE (XL) 25 MG TAB PO (08:40)
[2023-03-29] MEDS: HYDROCODONE-ACETAMIN 5-325 MG 1 TAB PO ×2 (09:03→18:49)
[2023-03-29 11:00] VITALS: BP 166/82; PULSE 72; RESP 20; O2SAT 98
[2023-03-29 13:12] LABS: Hemoglobin* 11.1 gm/dL (12.0-16.0)
[2023-03-29 13:25] LABS: INR 1.22 (0.91-1.10); Prothrombin Time 16.2 Seconds
[2023-03-29 15:00] VITALS: BP 159/72; PULSE 70; PULSE 87; RESP 20; TEMP 36.8; O2SAT 100
[2023-03-29 15:44] LABS: INR 6.05 (0.91-1.10)
--- NOTE | 2023-03-29 15:59 | PM.IMPN1 ---
Progress Note: A&P Assessment and plan (1) Gastrointestinal bleeding: Problem details: Patient has acute on chronic anemia with epigastric pain, hematemesis, dark stools. Supratherapeutic INR. Likely an upper GI bleed. H/o PUD 2006, colitis 2021, GERD on chronic PPI. Denies previous history of bleeds CT shows enteritis Hemoglobin of 8.1 on admission (previously 11.5), decreased to 6.8 overnight, currently 9.0 following 1 unit PRBC Continue IV fluids 75 mL/HR, ppi b.i.d., nausea and pain management as needed environmental monitoring specialist 03/24: Endoscopy with Dr. Martin notable for dark fluid, diverticulum without evidence of active bleed. She also reviewed CT showing circumferential bowel wall thickening. While this may be chronic with history of colitis, would be concerned if patient deteriorates, recommending transfer 03/25: No further vomiting or stools. Hemoglobin 7.5 this morning, 7.9 on recheck. Mild leukocytosis, downtrending. BC negative, Procalcitonin negative, UA unremarkable. Will discontinue IV fluids when adequate oral intake, query dilutional component 03/26: Still weak. Hemoglobin 9 after 1 unit of packed red blood cell transfusion. 03/27: Hemoglobin 9.5. 03/29: Hemoglobin 11.1 Status: Acute (2) Long-term (current) use of anticoagulants, INR goal 2.0-3.0: Problem details: Chronic. Indication: DVT/PE, also history of AFib INR 6.0 on admission, currently 1.14 following vitamin K administration on admission Continue to hold Coumadin (03/25). Given that hemoglobin is stabilized, warfarin has been re-initiated. Continue with daily INR. Status: Acute (3) Atrial fibrillation: Problem details: 03/25: Acute, suspected in setting of poor perfusion, anemia. -Inadequate response to oral metoprolol and IV bumps. Moved to CCU status. Diltiazem drip initiated, goal heart rate 100-119 for continued perfusion. Discontinued when goal rate med. 1 unit PRBC transfused. Awaiting repeat hemoglobin. Continue IV metoprolol 2.5 mg q.6 hours and oral metoprolol q.a.m. -On chronic anticoagulation, held on admission, will resume 03/28 with Pharmacy support. Status: Acute (4) Weakness: Problem details: Acute on chronic related to acute illness PT/OT consults suggest she needs additional rehabilitation before she can safely moved to her independent living apartment. 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 H/o rheumatoid arthritis, SLE Home dose chronic prednisone 7 mg daily Continues increased prednisone 10 mg b.i.d. (day 2) pending improved clinical course. Will check Mag and TSH Methotrexate held Status: Acute (6) Hypertension: Problem details: Continue metoprolol given history of atrial fibrillation, oral and IV Restarted losartan (03/25) Continue to hold furosemide, monitoring for fluid overload Weights: 03/24 54.4 kg, 03/25 59.9 kg, 03/26 59.6 kg. Status: Acute (7) Hypokalemia: Problem details: Potassium 3.3-3.5. Continue supplement, increased to 20 mEq b.i.d., and monitor. Mild hyponatremia, resolved Status: Acute (8) Dilated cardiomyopathy: Problem details: With fluid resuscitation and possible blood transfusion will need to monitor cardiac respiratory status closely. Discontinue IVF with adequate oral intake Status: Acute (9) Anemia of chronic disease: Problem details: Now with acute GI bleeding causing acute anemia in the face of chronic anemia of chronic disease Status: Acute (10) Elevated troponin: Problem details: Continues with no complaint of chest pain. Suspect this is stress induced ischemia. Not a candidate for antiplatelet or anticoagulation at this time due to bleeding Status: Acute Plan 1. Reviewed impression with patient. 2. Discussed with patient's daughter yesterday evening. 3. Continue with plans as specified above. Time Spent With Patient Total time spent: 30 minutes Subjective Date Seen: 03/29/23 Interval history: Hospital day 7. No further episodes of paroxysmal atrial fibrillation. Still weak. Continues to require assist with 5/6 ADLs, still able to feed self after food prep and setup. Continues to be agreeable to transitional care services before returning to her independent apartment living. No overt bleeding. Denies orthostasis, lightheadedness, dizziness. Tolerating oral intake. Denies nausea or vomiting. Denies abdominal pain. No diarrhea or constipation. Exam Narrative: Exam Narrative: I examine her in her hospital room. Appears comfortable. Sleepy but easily arousable. Friendly, articulate, cooperative. Alert and oriented to self, place, in part to time and in part to situation. Expresses anxiety and uncertainty about her future. Lungs are clear to auscultation. Heart tones with regular rhythm. End-stage changes of her upper extremities due to rheumatoid arthritis. Const: Vital Signs, click to edit/add: Vital Signs - 24 hr 03/28/23 19:00 03/28/23 23:00 03/28/23 23:00 Temperature 97.5 F L 97.5 F L Pulse Rate Pulse Rate [Right Pulse Oximeter] 77 75 Respiratory Rate 16 16 Blood Pressure [Le ft Arm] 188/83 H 166/84 H Blood Pressure [Ri ght Arm] Pulse Oximetry 97 97 97 Oxygen Delivery Me thod Nasal Cannula Room Air Nasal Can nula Nasal Cannula Oxygen Flow Rate 0.5 0.5 0.5 03/29/23 07:00 03/29/23 07:00 03/29/23 11:00 Temperature 97.9 F Pulse Rate 89 Pulse Rate [Right Pulse Oximeter] 91 72 Respiratory Rate 20 20 Blood Pressure [Le ft Arm] Blood Pressure [Ri ght Arm] 147/75 H 166/82 H Pulse Oximetry 97 98 Oxygen Delivery Me thod Nasal Cannula Nasal Cannula Oxygen Flow Rate 03/29/23 15:00 Temperature Pulse Rate 70 Pulse Rate [Right Pulse Oximeter] Respiratory Rate Blood Pressure [Le ft Arm] Blood Pressure [Ri ght Arm] Pulse Oximetry Oxygen Delivery Me thod Oxygen Flow Rate Documenting provider has reviewed patient's vital signs: yes Labs Labs: Laboratory Results - last 24 hr 03/23/23 03/28/23 03/29/23 13:35 16:45 13:00 Hgb 11.6 L 11.1 L INR 6.05 H* 1.06 1.22 H Crossmatch (AHG) See Detail
--- NOTE | 2023-03-29 16:42 | PC.SOCIAL ---
Addendum entered by GERA Mendoza 03/29/23 16:58: Completed preadmission screening. Confirmation #[id number]. Faxed PAS to [facility]. Original Note: Discharge planning- Received a phone call from Ami in admissions at [facility]. Ami informs that there are no openings this week. Received a phone call from Liliane in admissions at [facility] [place] ([phone]). Liliane informs that they can accept pt for admission for tomorrow (03/30/23) before 2:00 pm in a private room/shared bathroom. Phone call to pt's daughter to provide update. Pt's daughter is with pt and provided pt with the information. Pt's daughter will not be able to transport. Pt is on oxygen. Provided update to charge nurse and per charge nurse, pt will qualify for non-emergency ambulance and charge nurse will set this up. Provided update to Liliane in admissions at [facility]. Social work will follow up as needed.
[2023-03-29] MEDS: WARFARIN 3 MG TABLET PO (17:32)
--- NOTE | 2023-03-29 19:44 | PC.NURSE ---
End of shift [id number] - Pt alert, oriented, cooperative and fatigued during shift. Up to chair and bedside commode with 1-2 assist with walker and gait belt. Continent of bowel during shift. Pt reported pain in L hip, managed with interventions in JUL. Denies dizziness and SOB. Maintaining O2 saturation above 95% on 0.5L O2. Pt observed to have poor appetite. Pt reports nothing sounds or tastes good and did not order lunch or dinner tray. Pt reported nausea after trying small bites of food, no emesis noted. Family at bedside, pt resting at end of shift.
[2023-03-29 19:59] VITALS: BP 168/76; BP 177/85; PULSE 73; RESP 26; TEMP 36.5; O2SAT 97
[2023-03-29 22:37] VITALS: RESP 20; O2SAT 97
[2023-03-29 23:10] VITALS: BP 167/93; PULSE 78; RESP 20; TEMP 36.9; O2SAT 97
[2023-03-30] VITALS (37 sets, daily range): BP systolic 78–175; BP diastolic 41–113; PULSE 58–157; RESP 16–20; TEMP 36.3–37.3; O2SAT 92–100
[2023-03-30] MEDS: HYDROCODONE-ACETAMIN 5-325 MG 1 TAB PO ×3 (02:19→19:54)
[2023-03-30] MEDS: METOPROLOL TARTRATE 1 MG/ML inj 2.5 MG IVP ×3 (03:16→10:27)
--- NOTE | 2023-03-30 03:48 | PC.NURSE ---
Wheel Alignment Technician administered IV Metoprolol at 0316 due to MAP of 107 and resting heart rate of 149. Wheel Alignment Technician did confirm tachycardia with auscultation of heart rate. After IV Metoprolol was administered, va underwriter noted IV leaking when flushed with NS flush. Wheel Alignment Technician updated will call clerk and preceptor RN. IV to RLE removed due to IV no longer functioning- catheter tip noted to be intact. Pulse noted to be 86 when radial pulse assessed at 0340. Pt receives oral Metoprolol daily at 0900.
--- NOTE | 2023-03-30 06:57 | PC.NURSE ---
Shift note [id number]: Pt repositioned in bed with assist of 2. Pt?s daughter called last evening for status update and to confirm that pt will still be discharging to SNF today. Colindres catheter remains in place and patent. ?Pt was given one dose of PRN IV Metoprolol due to MAP of 107 and pulse of 149. Pulse noted to be 80 upon follow up after medication given. Pt was also given one dose of PRN [place] for what pt stated was ?02/16? chronic L hip pain unrelieved by rest, repositioning and ice. Pt noted to be asleep upon followup. IV to RLE discontinued after IV was noted to be leaking when attempting to flush with NS. No BM noted this shift though bowel sounds active x 4. Pt has had no c/o nausea or vomiting, CP or shortness of breath this shift. Pt was noted to be calling out instead of using call light. Staff provided reminders for pt to use call light when needing assistance.
[2023-03-30 06:58] LABS: Hemoglobin* 12.6 gm/dL (12.0-16.0)
[2023-03-30 07:10] LABS: INR 1.43 (0.91-1.10); Prothrombin Time 18.4 Seconds
[2023-03-30] MEDS: predniSONE 5 MG TABLET 10 MG PO ×2 (08:17→18:10)
[2023-03-30] MEDS: LOSARTAN POTASSIUM 50 MG TABLET 25 MG PO (09:19)
[2023-03-30] MEDS: POTASSIUM CHLORIDE 10 MEQ CAPSULE ER 20 MEQ PO ×2 (09:19→20:49)
[2023-03-30] MEDS: METOPROLOL SUCCINATE (XL) 25 MG TAB PO (09:19)
--- NOTE | 2023-03-30 09:45 | PC.SOCIAL ---
Update: per nursing, pt is not medically cleared to discharge today due to increased heart rate. Phone call to Liliane at [facility] to provide an update. [facility] will hold the bed for an extra day for pt. Nursing will provide an update to pt's daughter. Social work will follow up as needed.
[2023-03-30] MEDS: SODIUM CHLORIDE 0.9 % (FLUSH) 10 ML SYRINGE 5 ML IVF ×2 (10:05→11:11)
[2023-03-30] MEDS: ADENOSINE 6 MG/2ML INJ IVP (10:05)
[2023-03-30] MEDS: ADENOSINE 6 MG/2ML INJ 12 MG IVP (10:08)
[2023-03-30 10:12] LABS: Chloride* 102 mmol/L (96-114); Sodium* 137 mmol/L (135-149)
[2023-03-30 10:14] LABS: Creatinine* 0.6 mg/dL (0.5-1.5); Est. Creatinine Clearance* 42.86; Estimated Glomerular Filt Rate 91 ml/min
[2023-03-30 10:15] LABS: Anion Gap 12 mEq/L (7-15); Blood Urea Nitrogen* 13 mg/dL (7-30); Calcium* 8.7 mg/dL (8.4-10.6); Carbon Dioxide* 23 mmol/L (20-32); Glucose* 83 mg/dL (60-115); Magnesium* 1.9 mg/dL (1.5-2.6)
[2023-03-30 10:31] LABS: NT Pro B Type NatriureticPept* 7580 pg/mL; Troponin I* 0.24 ng/mL (0.01-0.04)
[2023-03-30] MEDS: METOPROLOL TARTRATE 1 MG/ML inj 5 MG IVP (11:11)
[2023-03-30] MEDS: dilTIAZem 5 MG/ML inj 10 MG IVP (11:44)
[2023-03-30] MEDS: dilTIAZem HCL 125 MG in 0.9 % SODIUM CHLORIDE 100 ml 100 ML IVPB (12:12)
[2023-03-30 12:57] LABS: Troponin I* 0.22 ng/mL (0.01-0.04)
--- NOTE | 2023-03-30 13:40 | W.ANESCHARGE ---
Anesthesia Charges Start Date/Time Anesthesia Start Date: 03/30/23 Anesthesia Start Time: 13:26 Stop Date/Time Anesthesia Stop Date: 03/30/23 Anesthesia Stop Time: 13:52 Summary Extremes of Age - Over 70 or under 1: MDA
[2023-03-30] MEDS: 0.9 % SODIUM CHLORIDE 250 ml IV (13:45)
--- NOTE | 2023-03-30 13:45 | PC.NURSE ---
Cardioversion: Members present: Dr. Brannon, Dr. Valdez (MDA), Birgit (COMPUTER SYSTEMS INTEGRATOR), RT Abbey RN's present: Angie Araujo, Seda Hylton, Vivi V, Treva L 1328 - 134/73-116 (irreg)-18-97% 4L/NC 1329 - Meds per COMPUTER SYSTEMS INTEGRATOR 1330 - 100J shock administered, convert to SB 59 1331 - 92/56, diltiazen drip stopped 1332 - 91/45-58-16-94% 4L/NC 1334 - 70/40-59. Patient layed flat. 1335 - 71/40-62. Meds per COMPUTER SYSTEMS INTEGRATOR for low BP 1336 - 67/35-61. Pt placed in trendelenberg. IVF increased to 250ml/hr. 1338 - 90/48-59-16-95% 4l/NC Pt maintaining own airway. Tolerated procedure well. Care handed off to RADHA Manriquez.
--- NOTE | 2023-03-30 13:57 | W.ANESCHARGE ---
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
--- NOTE | 2023-03-30 14:11 | W.ANESCHARGE ---
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
[2023-03-30] MEDS: NICOTINE 2 MG GUM BUCCAL (14:13)
--- NOTE | 2023-03-30 14:40 | RESP.RT ---
With Pt for cardioversion. Not requiring Rt for any support. Hyperoxygenated for 1/2 before procedure. SPO2 93-96% Pt. with soft BP after procedure. See Nursing charting.
--- NOTE | 2023-03-30 14:53 | PC.NURSE ---
End of shift-- Very pleasant and cooperative, alert and oriented, but drowsy patient. Pt tachycardic this morning with HR 150s-160s. B/P WNL, RR 16-18, afebrile. SPO2 maintained >90% on 0.5L per n.c. Pain appears well managed with PRN [place]. Telemetry showed aflutter to afib with RVR. ECG was completed and was abnormal. MD was notified. Pt was given adenosine 6mg and then 12mg per MD order but heart rhythm persisted in Afib with RVR. Pt moved to CCU and given additional IVP Metoprolol unsuccessfully, then IVP Diltiazem and Diltiazem drip was initiated. HR continued in 110s-120s. At roughly 1330 this afternoon, pt was cardioverted per MD with anesthesia and RT at bedside. Pt hypotensive following with B/Ps in 80s/40s. MD is aware and pt was given 250ml NS bolus per anesthesia and MD. Telemetry now shows Sinus ernesto to NSR. A few fine crackles noted in left posterior base, otherwise CTA. She denied nausea, but has not eaten today aside from a few sips of Sprite. She was turned and repositioned only this shift. Colindres is patent, but pt only had 200ml of cloudy light alireza urine this shift. Daughter was at bedside today and appears loving and supportive. Report to RADHA Julian.
--- NOTE | 2023-03-30 15:09 | PM.IMPN1 ---
Progress Note: A&P Assessment and plan (1) Gastrointestinal bleeding: Problem details: Patient has acute on chronic anemia with epigastric pain, hematemesis, dark stools. Supratherapeutic INR. Likely an upper GI bleed. H/o PUD 2006, colitis 2021, GERD on chronic PPI. Denies previous history of bleeds CT shows enteritis Hemoglobin of 8.1 on admission (previously 11.5), decreased to 6.8 overnight, currently 9.0 following 1 unit PRBC Continue IV fluids 75 mL/HR, ppi b.i.d., nausea and pain management as needed equipment monitor phototypesetting 03/24: Endoscopy with Dr. Martin notable for dark fluid, diverticulum without evidence of active bleed. She also reviewed CT showing circumferential bowel wall thickening. While this may be chronic with history of colitis, would be concerned if patient deteriorates, recommending transfer 03/25: No further vomiting or stools. Hemoglobin 7.5 this morning, 7.9 on recheck. Mild leukocytosis, downtrending. BC negative, Procalcitonin negative, UA unremarkable. Will discontinue IV fluids when adequate oral intake, query dilutional component 03/26: Still weak. Hemoglobin 9 after 1 unit of packed red blood cell transfusion. 03/27: Hemoglobin 9.5. 03/29: Hemoglobin 11.1 03/30: Hemoglobin 12. Status: Acute (2) Long-term (current) use of anticoagulants, INR goal 2.0-3.0: Problem details: Chronic. Indication: DVT/PE, also history of AFib INR 6.0 on admission, currently 1.14 following vitamin K administration on admission Continue to hold Coumadin (03/25). Given that hemoglobin is stabilized, warfarin has been re-initiated. Continue with daily INR. Status: Acute (3) Atrial fibrillation: Problem details: 03/25: Acute, suspected in setting of poor perfusion, anemia. -Inadequate response to oral metoprolol and IV bumps. Moved to CCU status. Diltiazem drip initiated, goal heart rate 100-119 for continued perfusion. Discontinued when goal rate med. 1 unit PRBC transfused. Awaiting repeat hemoglobin. Continue IV metoprolol 2.5 mg q.6 hours and oral metoprolol q.a.m. -On chronic anticoagulation, held on admission, will resume 03/28 with Pharmacy support. 03/30: Patient went into AFib RVR again today. Eventually DC cardioverted with a single dose of 100 joules. Status: Acute (4) Weakness: Problem details: Acute on chronic related to acute illness PT/OT consults suggest she needs additional rehabilitation before she can safely moved to her independent living apartment. 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 H/o rheumatoid arthritis, SLE Home dose chronic prednisone 7 mg daily Continues increased prednisone 10 mg b.i.d. (day 2) pending improved clinical course. Will check Mag and TSH Methotrexate held Status: Acute (6) Hypertension: Problem details: Continue metoprolol given history of atrial fibrillation, oral and IV Restarted losartan (03/25) Continue to hold furosemide, monitoring for fluid overload Weights: 03/24 54.4 kg, 03/25 59.9 kg, 03/26 59.6 kg, ... 03/30 59.5 kg. Status: Acute (7) Hypokalemia: Problem details: Potassium 3.3-3.5. Continue supplement, increased to 20 mEq b.i.d., and monitor. Mild hyponatremia, resolved Status: Acute (8) Dilated cardiomyopathy: Problem details: With fluid resuscitation and possible blood transfusion will need to monitor cardiac respiratory status closely. Discontinue IVF with adequate oral intake Status: Acute (9) Anemia of chronic disease: Problem details: Now with acute GI bleeding causing acute anemia in the face of chronic anemia of chronic disease Status: Acute (10) Elevated troponin: Problem details: - early on in the course of the hospitalization patient had a bump in her troponin I. This eventually resolved. Continues with no complaint of chest pain. Suspect this is stress induced ischemia. - 03/30: Patient has another bump in her troponin I in association with another episode of atrial fibrillation with rapid ventricular response. Given this instability the decision is made to proceed with DC cardioversion. Status: Acute (11) Frailty syndrome in geriatric patient: Problem details: - discussion with patient and daughter on 03/30 regarding the possibility of enteral feedings concludes with this is not with the patient once. Patient and family are leaning toward palliative care's with hospice support at this time but they have not clearly made the decision yet. Status: Acute Plan 1. Reviewed impression with patient and daughter. 2. Continue with supportive efforts as specified above at this time. 3. Continue with discussions about goals of care including the possibility of palliative and hospice support and services. Time Spent With Patient Total time spent: 70 minutes Subjective Date Seen: 03/30/23 Interval history: Hospital day 8. Yesterday evening her rhythm changed from sinus rhythm to atrial fibrillation with the rapid ventricular response. At 7:00 a.m. today her heart rate was 160. She was seemingly asymptomatic. She was expressing a desire to transfer from bed to chair. She was hemodynamically stable. We confirmed atrial fib with rapid ventricular response with a 12 lead EKG. Initially it appeared as though she might be in PSVT. She did not convert with Valsalva maneuver or modified Valsalva maneuver. We attempted chemical cardioversion with adenosine 6 mg and then adenosine 12 mg. When administering this were able to see the P waves in that was a lot clear that she was in atrial fib with RVR. We attempted to slow this down with metoprolol tartrate IV but were unsuccessful. We put her on a diltiazem drip and were eventually able to achieve heart rates of 100-120. Blood pressure is tolerated this. Daughter Giselle finally came in. Explain to the patient and the daughter that this rhythm was unstable for the patient as her troponin I's were starting to rise. Given that she was in this rhythm for less than 24 hours we discussed option of synchronized DC cardioversion. Discussed desired outcomes and potential adverse consequences. Answered their questions. After conferring with other family members they decided to proceed with this effort. With anesthesia, respiratory, and nursing support, and after informed consent, patient was DC cardioverted with a single does of 100 joules from AFib RVR to normal sinus rhythm. She has remained in normal sinus rhythm since this cardioversion. Still weak. Continues to require assist with 5/6 ADLs, still able to feed self after food prep and setup. Continues to be agreeable to transitional care services before returning to her independent apartment living. No overt bleeding. Denies orthostasis, lightheadedness, dizziness. Tolerating oral intake. Denies nausea or vomiting. Denies abdominal pain. No diarrhea or constipation. Patient's appetite has been down now for some time. Discussion was undertaken in regard to the possibility of enteral feedings via feeding tube. Patient family prefer not to proceed in this route. Patient family are on the verge of making a decision about possibly pursuing palliative care and hospice services at this time. Additional discussion will need to be undertaken. Exam Narrative: Exam Narrative: Examined patient in her hospital room. Initially she is on the medical floor and subsequently she is in CCU area, when we transfer her there for more intensive management efforts including diltiazem drip and eventually DC cardioversion. Patient actually appears comfortable and in no acute distress throughout all this. Alert and oriented to self, place, in part to time and mostly to situation. She is articulate, friendly, cooperative. Lungs actually are clear although she has decreased breath sounds in the bases which is not new. When she is in AFib RVR her heart rate is tachycardic. For while it seems like it is a regular rhythm but afterward once we slow it down it is more apparent that it is an irregular rhythm. After DC cardioversion she is in a regular rhythm with a normal S1-S2. Abdomen with active bowel sounds, soft, nontender. And changes of rheumatoid in her hands bilaterally. Const: Vital Signs, click to edit/add: Vital Signs - 24 hr 03/29/23 19:59 03/29/23 22:37 03/29/23 23:10 Temperature 97.7 F 98.5 F Pulse Rate [Right Pulse Oximeter] 73 78 Respiratory Rate 26 H 20 20 Blood Pressure [Le ft Arm] 168/76 H Blood Pressure [Ri ght Arm] 177/85 H 167/93 H Pulse Oximetry 97 97 97 Oxygen Delivery Me thod Nasal Cannula Nasal Cannula Nasal Cannula Oxygen Flow Rate 0.5 0.5 0.5 03/30/23 02:56 03/30/23 03:15 03/30/23 04:25 Temperature 97.9 F Pulse Rate [Right Pulse Oximeter] 74 149 H 80 Respiratory Rate 18 Blood Pressure [Le ft Arm] Blood Pressure [Ri ght Arm] 175/74 H Pulse Oximetry 100 Oxygen Delivery Me thod Nasal Cannula Oxygen Flow Rate 0.5 03/30/23 08:00 03/30/23 09:22 03/30/23 10:03 Temperature 97.4 F L Pulse Rate [Right Pulse Oximeter] 104 H 157 H Respiratory Rate 18 20 Blood Pressure [Le ft Arm] 149/90 H Blood Pressure [Ri ght Arm] 135/87 Pulse Oximetry 94 97 96 Oxygen Delivery Me thod Nasal Cannula Nasal Cannula Nasal Cannula Oxygen Flow Rate 0.5 0.5 0.5 03/30/23 10:11 03/30/23 10:15 03/30/23 10:26 Temperature Pulse Rate [Right Pulse Oximeter] 154 H 157 H 155 H Respiratory Rate 20 18 18 Blood Pressure [Le ft Arm] Blood Pressure [Ri ght Arm] 149/94 H 115/82 123/86 Pulse Oximetry 96 97 96 Oxygen Delivery Me thod Nasal Cannula Nasal Cannula Nasal Cannula Oxygen Flow Rate 0.5 0.5 0.5 03/30/23 10:30 03/30/23 10:45 03/30/23 11:00 Temperature 99.2 F Pulse Rate [Right Pulse Oximeter] 106 H 150 H 148 H Respiratory Rate 18 18 Blood Pressure [Le ft Arm] Blood Pressure [Ri ght Arm] 119/85 119/83 145/90 H Pulse Oximetry 96 97 Oxygen Delivery Me thod Nasal Cannula Nasal Cannula Oxygen Flow Rate 0.5 0.5 03/30/23 11:15 03/30/23 11:30 03/30/23 11:45 Temperature Pulse Rate [Right Pulse Oximeter] 88 149 H 122 H Respiratory Rate 18 Blood Pressure [Le ft Arm] Blood Pressure [Ri ght Arm] 132/100 H 122/79 132/113 H Pulse Oximetry 96 Oxygen Delivery Me thod Oxygen Flow Rate 03/30/23 12:00 03/30/23 12:15 03/30/23 12:30 Temperature 99.2 F Pulse Rate [Right Pulse Oximeter] 116 H 118 H 89 Respiratory Rate 18 18 18 Blood Pressure [Le ft Arm] Blood Pressure [Ri ght Arm] 117/87 102/79 115/77 Pulse Oximetry 96 96 95 Oxygen Delivery Me thod Nasal Cannula Nasal Cannula Nasal Cannula Oxygen Flow Rate 0.5 0.5 0.5 03/30/23 12:45 03/30/23 12:50 03/30/23 13:00 Temperature Pulse Rate [Right Pulse Oximeter] 85 118 H 138 H Respiratory Rate 18 18 18 Blood Pressure [Le ft Arm] Blood Pressure [Ri ght Arm] 137/79 99/73 Pulse Oximetry 95 93 Oxygen Delivery Me thod Nasal Cannula Nasal Cannula Oxygen Flow Rate 0.5 0.5 03/30/23 13:20 03/30/23 13:30 03/30/23 13:42 Temperature Pulse Rate [Right Pulse Oximeter] 118 H 61 60 Respiratory Rate 16 18 18 Blood Pressure [Le ft Arm] Blood Pressure [Ri ght Arm] 138/70 92/56 L 78/41 L Pulse Oximetry 98 96 96 Oxygen Delivery Me thod Nasal Cannula Nasal Cannula Nasal Cannula Oxygen Flow Rate 4 0.5 0.5 03/30/23 13:48 03/30/23 13:51 03/30/23 13:54 Temperature 97.7 F 97.7 F 97.7 F Pulse Rate [Right Pulse Oximeter] 76 75 72 Respiratory Rate 18 18 18 Blood Pressure [Le ft Arm] Blood Pressure [Ri ght Arm] 91/52 L 91/52 L 85/51 L Pulse Oximetry 95 95 92 Oxygen Delivery Me thod Nasal Cannula Nasal Cannula Nasal Cannula Oxygen Flow Rate 1 1 1 03/30/23 14:03 03/30/23 14:10 03/30/23 14:15 Temperature 97.7 F 97.7 F Pulse Rate [Right Pulse Oximeter] 69 65 67 Respiratory Rate 18 18 18 Blood Pressure [Le ft Arm] Blood Pressure [Ri ght Arm] 95/46 L 98/49 L 100/49 L Pulse Oximetry 94 95 94 Oxygen Delivery Me thod Nasal Cannula Oxygen Flow Rate 0.5 0.5 0.5 03/30/23 14:30 Temperature Pulse Rate [Right Pulse Oximeter] 65 Respiratory Rate 18 Blood Pressure [Le ft Arm] Blood Pressure [Ri ght Arm] 96/50 L Pulse Oximetry 96 Oxygen Delivery Me thod Nasal Cannula Oxygen Flow Rate 0.5 Documenting provider has reviewed patient's vital signs: yes Labs Labs: Laboratory Results - last 24 hr 03/23/23 03/28/23 03/28/23 13:35 07:45 07:45 Hgb INR 6.05 H* Sodium Potassium Chloride Carbon Dioxide Anion Gap BUN Creatinine Estimated Creat Clear Estimated GFR Glucose Calcium Magnesium Troponin I 0.10 H* Cancelled NT-Pro-B Natriuret Pep Lab Acknowledgement 03/30/23 03/30/23 03/30/23 06:35 09:50 10:32 Hgb 12.6 INR 1.43 H Sodium 137 Potassium 4.0 Chloride 102 Carbon Dioxide 23 Anion Gap 12 BUN 13 Creatinine 0.6 Estimated Creat Clear 42.86 Estimated GFR 91 Glucose 83 Calcium 8.7 Magnesium 1.9 Troponin I 0.24 H* NT-Pro-B Natriuret Pep 7580 Lab Acknowledgement Test Added 03/30/23 12:00 Hgb INR Sodium Potassium Chloride Carbon Dioxide Anion Gap BUN Creatinine Estimated Creat Clear Estimated GFR Glucose Calcium Magnesium Troponin I 0.22 H* NT-Pro-B Natriuret Pep Lab Acknowledgement
[2023-03-30] MEDS: WARFARIN 3 MG TABLET PO (17:00)
[2023-03-30 17:34] LABS: Hemoglobin* 10.7 gm/dL (12.0-16.0)
[2023-03-30 18:03] LABS: INR 1.68 (0.91-1.10)
[2023-03-30] MEDS: 0.9 % SODIUM CHLORIDE 1000 ml 1,000 ML 75 ML IV (19:00)
--- NOTE | 2023-03-30 22:09 | PC.NURSE ---
End of shift: Patient's VSS, out of unit at 1999. O2 sating 98% on 0.5% L NC. Patient up to chair with 2 assist stand up walker and GB. Tried the commode and then back to bed. Repo Q2 to try to get comfortable. PRN Burnham administered w/relief. Urine output still minimal. MD aware. IV 22G in L FA, NS fluids running at 75mls/hr. Colindres patent and draining, straw colored urine. Family at bedside. Plan: possible Hospice care, family stated they are interested in meeting with psychosocial rehabilitation counselor tomorrow to discuss hospice facilities.
[2023-03-31] MEDS: 0.9 % SODIUM CHLORIDE 1000 ml 1,000 ML 75 ML IV (02:48)
[2023-03-31 03:00] VITALS: BP 168/67; PULSE 75; RESP 18; TEMP 36.6; O2SAT 97
--- NOTE | 2023-03-31 07:00 | PC.NURSE ---
Shift note: NSR throughout this shift, no c/o SOB. Turned and repo in bed
[2023-03-31 07:34] VITALS: BP 158/68; PULSE 70; RESP 16; TEMP 37.4; O2SAT 96
[2023-03-31] MEDS: predniSONE 5 MG TABLET 10 MG PO (07:40)
[2023-03-31] MEDS: OMEPRAZOLE 20 MG CAPSULE DR PO (07:40)
[2023-03-31 08:55] LABS: Hematocrit 36.5 % (33.0-51.0); Hemoglobin* 11.1 gm/dL (12.0-16.0); Mean Corpuscular HGB Conc 30 gm/dL (32-36); Mean Corpuscular Hemoglobin 30 pg (26-34); Mean Corpuscular Volume 100 fL (80-100); Platelet Count* 243 K/uL (140-440); Red Blood Count 3.66 m/uL (4.00-5.20); White Blood Count* 14.63 K/uL (4.50-11.00)
[2023-03-31] MEDS: PROCHLORPERAZINE 5 MG/ML VIAL IV (09:02)
[2023-03-31 09:09] VITALS: PULSE 76
[2023-03-31 09:10] LABS: Albumin* 3.2 g/dL (3.3-5.0)
[2023-03-31 09:11] LABS: Chloride* 107 mmol/L (96-114); Potassium* 3.8 mmol/L (3.6-5.1); Sodium* 136 mmol/L (135-149)
[2023-03-31 09:13] LABS: Anion Gap 10 mEq/L (7-15); Aspartate Amino Transferase* 27 U/L (12-35); Bilirubin Total* 0.8 mg/dL (0.1-1.5); Carbon Dioxide* 19 mmol/L (20-32); Creatinine* 0.5 mg/dL (0.5-1.5); Est. Creatinine Clearance* 42.86; Estimated Glomerular Filt Rate 95 ml/min
[2023-03-31 09:14] LABS: Alanine Aminotransferase* 24 U/L (4-35); Alkaline Phosphatase* 65 U/L (40-150); Blood Urea Nitrogen* 15 mg/dL (7-30); Glucose* 70 mg/dL (60-115); Total Protein* 5.5 g/dL (6.0-8.3)
[2023-03-31] MEDS: METOPROLOL SUCCINATE (XL) 25 MG TAB PO (09:29)
[2023-03-31] MEDS: POTASSIUM CHLORIDE 10 MEQ CAPSULE ER 20 MEQ PO (09:29)
[2023-03-31] MEDS: LOSARTAN POTASSIUM 50 MG TABLET 25 MG PO (09:29)
[2023-03-31 09:33] LABS: Troponin I* 0.31 ng/mL (0.01-0.04)
[2023-03-31 09:53] LABS: INR 1.97 (0.91-1.10); Prothrombin Time 23.9 Seconds
[2023-03-31 09:59] LABS: Slide Review Reflex Yes
[2023-03-31 10:50] LABS: Slide Review Acceptable Review (Acceptable)
[2023-03-31 11:10] VITALS: BP 117/76; PULSE 80; RESP 18; TEMP 36.6; O2SAT 95
--- NOTE | 2023-03-31 12:00 | PC.SOCIAL ---
Pt. has been accepted to the [facility] for short term rehab. Updated pt.'s daughter Giselle @ [phone] who is in agreement but would like to pursue hospice once pt. rehabs some. Giselle prefers placement at the [facility] since pt. lives at [facility]. Spoke with Omaira refuge manager at [facility] and they will plan to move pt. to [facility] with hospice once pt. rehabs. Omaira will be in touch with pt.'s daughter.
--- NOTE | 2023-03-31 12:56 | PC.NURSE ---
Discharge: Patient pleasant and cooperative at times. Patient hypertensive but vitally stable, lungs diminished, BS WNL, IV removed catheter intact. Colindres removed tip intact. Tele=NSR. Patient denies pain. Discharge form signed by patient and son. Patient left the floor to [facility] by EMS at 1253. [employer] left message for Hugo for nurse to nurse report, as no one was answering the phone.
--- NOTE | 2023-03-31 15:56 | P.DS_ITS ---
DS: Providers Provider Date Seen: 03/31/23 Date of admission: 03/23/23 20:43 Primary care physician: Prakash Moore MD Admitting Clinician: John Joyner MD Consults: 03/23/23 19:45 Consult to Nutrition [CONS] Routine Comment: Reason for consult:: Nutritional Consult Consult to Occupational Therapy [CONS] Routine Comment: Reason(s) for OT Consult:: Evaluate and Treat Any Restrictions?:: No Restrictions Consult to Physical Therapy [CONS] Routine Comment: Reason(s) for PT Consult:: Evaluate and Treat Any Restrictions?:: No Restrictions Attending Physician on discharge: Rodo Brannon MD Date of Discharge: 03/31/23 DS: Diagnosis Discharge Diagnosis (1) Gastrointestinal bleeding: Status: Acute Problem details: Patient has acute on chronic anemia with epigastric pain, hematemesis, dark stools. Supratherapeutic INR. Likely an upper GI bleed. H/o PUD 2006, colitis 2021, GERD on chronic PPI. Denies previous history of bleeds CT shows enteritis Hemoglobin of 8.1 on admission (previously 11.5), decreased to 6.8 overnight, currently 9.0 following 1 unit PRBC Continue IV fluids 75 mL/HR, ppi b.i.d., nausea and pain management as needed personnel monitor 03/24: Endoscopy with Dr. Martin notable for dark fluid, diverticulum without evidence of active bleed. She also reviewed CT showing circumferential bowel wall thickening. While this may be chronic with history of colitis, would be concerned if patient deteriorates, recommending transfer 03/25: No further vomiting or stools. Hemoglobin 7.5 this morning, 7.9 on recheck. Mild leukocytosis, downtrending. BC negative, Procalcitonin negative, UA unremarkable. Will discontinue IV fluids when adequate oral intake, query dilutional component 03/26: Still weak. Hemoglobin 9 after 1 unit of packed red blood cell transfusion. 03/27: Hemoglobin 9.5. 03/29: Hemoglobin 11.1 03/30: Hemoglobin 12. (2) Enteritis: Status: Acute Problem details: Main symptom is vomiting. No obvious diarrhea. Follow clinically (3) Nonspecific colitis: Status: Acute Problem details: June 2021 had colitis. Self-limited disease. No evidence of a chronic process (4) Supratherapeutic INR: Status: Acute (5) Long-term (current) use of anticoagulants, INR goal 2.0-3.0: Status: Acute Problem details: Chronic. Indication: DVT/PE, also history of AFib INR 6.0 on admission, currently 1.14 following vitamin K administration on admission Continue to hold Coumadin (03/25). Given that hemoglobin is stabilized, warfarin has been re-initiated. Continue with daily INR. (6) Atrial fibrillation: Status: Acute Problem details: 03/25: Acute, suspected in setting of poor perfusion, anemia. -Inadequate response to oral metoprolol and IV bumps. Moved to CCU status. Diltiazem drip initiated, goal heart rate 100-119 for continued perfusion. Discontinued when goal rate med. 1 unit PRBC transfused. Awaiting repeat hemoglobin. Continue IV metoprolol 2.5 mg q.6 hours and oral metoprolol q.a.m. -On chronic anticoagulation, held on admission, will resume 03/28 with Pharmacy support. 03/30: Patient went into AFib RVR again today. Eventually DC cardioverted with a single dose of 100 joules. 03/31: Remain in normal sinus rhythm since yesterday. Discussion with patient, daughter, Giselle, and son, Hector, and decision is made to focus on keeping patient comfortable hereafter should she go in and out of atrial fibrillation. (7) Anemia due to gastrointestinal blood loss: Status: Acute (8) Anemia of chronic disease: Status: Acute Problem details: Now with acute GI bleeding causing acute anemia in the face of chronic anemia of chronic disease (9) Gastroesophageal reflux disease: Status: Acute Problem details: On PPI chronically (10) Vomiting: Status: Acute Problem details: - Intractable vomiting. Uncertain if this is the cause of her bleeding or a result of her bleeding. CT shows enteritis. - During course of hospitalization patient had very little oral intake, food or liquid hendrickson. Hospital dietitian visited with patient and discussed food preferences and recommendations. Patient and family declined enteral or parenteral nutritional support. Goal is to focus on patient comfort. (11) Weakness: Status: Acute Problem details: Acute on chronic related to acute illness PT/OT consults suggest she needs additional rehabilitation before she can safely moved to her independent living apartment. If not able to move back to independent living in her apartment, family are strongly considering the possibility of hospice, with primary hospice diagnosis related to heart disease, dilated cardiomyopathy, atrial fibrillation. Did have a non ST segment elevation myocardial infarction while in the hospital on 03/30/2023, related to atrial fibrillation with rapid ventricular response that ultimately culminated in patient having a DC cardioversion on the afternoon of 03/30/2023. Has remained in normal sinus rhythm since. (12) Long-term current use of steroids: Status: Acute Problem details: - on admission patient was on 7 mg of prednisone daily. We did give her stress doses of steroids initially. We have been gradually dropping her prednisone dose since. At time of discharge from hospital she is down to 10 mg daily. May warrant additional periodic decreasing doses if tolerable. 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 H/o rheumatoid arthritis, SLE Home dose chronic prednisone 7 mg daily Continues increased prednisone 10 mg b.i.d. (day 2) pending improved clinical course. Methotrexate held (15) Frailty syndrome in geriatric patient: Status: Acute Problem details: - discussion with patient and daughter on 03/30 regarding the possibility of enteral feedings concludes with this is not with the patient once. Patient and family are leaning toward palliative cares with hospice support at this time but they have not clearly made the decision yet. (16) Elevated troponin: Status: Acute Problem details: - early on in the course of the hospitalization patient had a bump in her troponin I. This eventually resolved. Continues with no complaint of chest pain. Suspect this is stress induced ischemia. - 03/30: Patient has another bump in her troponin I in association with another episode of atrial fibrillation with rapid ventricular response. Given this instability the decision is made to proceed with DC cardioversion. - 03/31: ECG today demonstrates new T-wave inversions inferior laterally suggesting patient may have had a non ST elevation myocardial infarction. Peak troponin I was 0.31. (17) Dilated cardiomyopathy: Status: Acute Problem details: With fluid resuscitation and possible blood transfusion will need to monitor cardiac respiratory status closely. Discontinue IVF with adequate oral intake (18) Chronic pain: Status: Acute (19) Hypertension: Status: Acute Problem details: Continue metoprolol given history of atrial fibrillation, oral and IV Restarted losartan (03/25) Continue to hold furosemide, monitoring for fluid overload Weights: 03/24 54.4 kg, 03/25 59.9 kg, 03/26 59.6 kg, ... 03/30 59.5 kg. (20) Hypokalemia: Status: Acute Problem details: Potassium 3.3-3.5. Continue supplement, increased to 20 mEq b.i.d., and monitor. Mild hyponatremia, resolved (21) Unsteady gait: Status: Acute DS: Summary Status at Discharge Cognitive/behavioral status at discharge: See summary above. Functional status at discharge: uses cane/walker Overall status at discharge: patient is not back to baseline Time Spent with Patient Time attestation: Total time spent providing and/or coordinating discharge services: Time spent: Greater than 30 minutes Exam Narrative: Exam Narrative: Examined patient in her hospital room. Patient appears comfortable and in no acute distress. Alert and oriented to self, place, in part to time and mostly to situation. She is articulate, friendly, cooperative. Today she verbally states she would like to attempt physical therapy and occupational therapy rehabilitation efforts. Lungs actually are clear although she has decreased breath sounds in the bases which is not new. After DC cardioversion yesterday, she has remained in a normal sinus rhythm with regular rate and rhythm with a normal S1-S2. Abdomen with active bowel sounds, soft, nontender. And changes of rheumatoid in her hands bilaterally. Const: Vital Signs, click to edit/add: Vital Signs - 24 hr 03/30/23 16:00 03/30/23 16:00 03/30/23 18:00 Temperature 98.9 F 98.9 F Pulse Rate Pulse Rate [Right Pulse Oximeter] 72 72 69 Respiratory Rate 18 18 18 Blood Pressure [Ri t Arm] 114/54 L 137/63 Pulse Oximetry 97 98 Oxygen Delivery Me thod Nasal Cannula Nasal Cannula Oxygen Flow Rate 0.5 0.5 03/30/23 23:35 03/30/23 23:35 03/30/23 23:35 Temperature Pulse Rate 67 Pulse Rate [Right Pulse Oximeter] 67 Respiratory Rate 18 18 Blood Pressure [Ri ght Arm] Pulse Oximetry 96 Oxygen Delivery Me thod Nasal Cannula Oxygen Flow Rate 0.5 03/30/23 23:35 03/31/23 03:00 03/31/23 07:34 Temperature 98.3 F 98 F 99.4 F Pulse Rate Pulse Rate [Right Pulse Oximeter] 72 75 70 Respiratory Rate 18 18 16 Blood Pressure [Ri ght Arm] 142/65 H 168/67 H 158/68 H Pulse Oximetry 96 97 96 Oxygen Delivery Me thod Nasal Cannula Nasal Cannula Room Air Oxygen Flow Rate 0.5 0.5 03/31/23 07:34 03/31/23 07:34 03/31/23 09:09 Temperature Pulse Rate 76 Pulse Rate [Right Pulse Oximeter] 70 Respiratory Rate 16 16 Blood Pressure [Ri ght Arm] Pulse Oximetry 96 Oxygen Delivery Me thod Room Air Oxygen Flow Rate 0.5 03/31/23 11:10 Temperature 97.9 F Pulse Rate Pulse Rate [Right Pulse Oximeter] 80 Respiratory Rate 18 Blood Pressure [Ri ght Arm] 117/76 Pulse Oximetry 95 Oxygen Delivery Me thod Room Air Oxygen Flow Rate Documenting provider has reviewed patient's vital signs: yes DS: Data Data Completed and Pending Labs on day of discharge: Labs from last 24 hours 03/31/23 03/31/23 03/30/23 09:36 08:40 17:25 WBC 14.63 H RBC 3.66 L Hgb 11.1 L 10.7 L Hct 36.5 MCV 100 MCH 30 MCHC 30 L Plt Count 243 Diff Slide Review Acceptable Review INR 1.97 H 1.68 H Sodium 136 Potassium 3.8 Chloride 107 Carbon Dioxide 19 L Anion Gap 10 BUN 15 Creatinine 0.5 Estimated Creat Clear 42.86 Estimated GFR 95 Glucose 70 Calcium 8.0 L Total Bilirubin 0.8 AST 27 ALT 24 Alkaline Phosphatase 65 Troponin I 0.31 H* Total Protein 5.5 L Albumin 3.2 L Lab Acknowledgement Test Added Discharge Plan Discharge Disposition: [facility] Date of Admission: 03/23/23 20:43 Attending Provider on Discharge: Rodo Brannon Primary Care Provider: Prakash Moore Condition: Stable Anticipated Discharge Date/Time: 03/31/23 12:30 Discharge Medications: New potassium chloride 10 mEq Capsule, Extended Release 20 meq PO BID 30 Days Qty: 120 0RF prednisone 5 mg tablet 10 mg PO DAILY Qty: 60 0RF hydrocodone-acetaminophen 5-325 mg Tablet 1 tab PO Q8H PRN (Reason: pain) 30 Days Qty: 60 0RF mirtazapine 7.5 mg tablet 7.5 mg PO QHS Qty: 30 2RF ondansetron 4 mg tablet,disintegrating 4 mg PO Q6H PRN (Reason: nausea and vomiting) Qty: 20 0RF Continued melatonin 3 mg capsule 3 mg PO .Bedtime as needed PRN hydroxychloroquine 200 mg tablet PO .Daily At 12:00PM folic acid 1 mg tablet 1 mg PO HS flaxseed oil 1,000 mg capsule 1 mg PO DAILY nystatin [Nyamyc] 100,000 unit/gram powder 1 applic topical BID PRN bupropion HCl 150 mg tablet extended release 24 hr 150 mg PO DAILY Qty: 90 3RF furosemide 40 mg tablet 40 mg PO DAILY Qty: 90 3RF gabapentin 400 mg capsule 1,200 mg PO BID Qty: 540 3RF loratadine 10 mg tablet 10 mg PO .Daily as needed PRN (Reason: allergic symptoms) Qty: 90 3RF losartan 25 mg tablet 25 mg PO DAILY Qty: 90 3RF magnesium oxide 400 mg (241.3 mg magnesium) tablet 400 mg PO .Daily At 12:00PM Qty: 90 3RF metoprolol succinate 25 mg tablet extended release 24 hr 25 mg PO DAILY Qty: 90 3RF omeprazole 20 mg capsule,delayed release(DR/EC) 20 mg PO DAILY Qty: 90 3RF simvastatin 20 mg tablet 20 mg PO .Bedtime Qty: 90 3RF Vitron-C 65 mg iron- 125 mg tablet,delayed release (DR/EC) 1 tab PO QDAY Qty: 90 3RF fluconazole 150 mg tablet 150 mg PO QWEEK Qty: 12 4RF Patient Comments: takes on Wednesday clobetasol 0.05 % cream 1 applic topical BID 14 Days Qty: 15 1RF ascorbate calcium (vitamin C) 500 mg tablet 500 mg PO QDAY pediatric multivitamin Tablet,Chewable 1 tab PO QDAY nystatin 100,000 unit/gram cream 1 applic topical TID PRN Rx Instructions: apply to affected area x 1-2 weeks and continue for 2 days after rash resolves levothyroxine 25 mcg capsule 25 mcg PO DAILY estradiol 0.01 % (0.1 mg/gram) cream 0.5 g vaginal QWEEK Qty: 42.5 1RF Rx Instructions: Use nightly for two weeks, then decrease use to twice weekly for 2 weeks, then use once weekly. warfarin 3 mg tablet 3 mg PO QDAY Qty: 72 0RF Protocol: Dose Management Condition: Wednesday Dose/Route: 1.5 mg Instruction: 0.5 x 3 mg tablets Condition: Wednesday Dose/Route: 3 mg Instruction: 1 x 3 mg tablet Condition: Wednesday Dose/Route: 3 mg Instruction: 1 x 3 mg tablet Condition: Wednesday Dose/Route: 1.5 mg Instruction: 0.5 x 3 mg tablets Condition: Dose/Route: 3 mg Instruction: 1 x 3 mg tablet Condition: Wednesday Dose/Route: 3 mg Instruction: 1 x 3 mg tablet Condition: Wednesday Dose/Route: 3 mg Instruction: 1 x 3 mg tablet Protocol Text: Adjustment Start Date: Wednesday02/23/23 INR Value: 3.0 INR Date: 02/23/23 Recheck Date: 03/23/23 Rx Instructions: Take 1.5 mg on Wednesday/Wednesday and 3 mg the rest of the week Discontinued prednisone 1 mg tablet 2 mg PO DAILY Rx Instructions: PLUS ONE 5 MG TAB, TOTAL 7 MG potassium chloride 10 mEq capsule, extended release 10 meq PO BID Qty: 180 3RF methotrexate sodium 2.5 mg tablet 15 mg PO TH@09 Patient Comments: takes on nicotine (polacrilex) 2 mg gum 2 mg buccal Q2-4H PRN prednisone 5 mg tablet 5 mg PO DAILY Rx Instructions: PLUS TWO 1 MG TABS, TOTAL 7 MG hydrocodone-acetaminophen 5-325 mg tablet 1 tab PO Q8H PRN (Reason: pain) Qty: 90 0RF Patient Comments: usually takes one in the morning and then rarely an extra one later in the day Discharge Orders: Discharge Order (Routine); Ordered 03/31/23 Ordered By: Rodo Brannon Activity Level: Activity as Tolerated, Up with assist and Use Walker Discharge Diet: Regular Follow Up Appointments: Prakash Moore MD [Primary Care Provider] - Forms: MyHealth Info Instructions Discharge Comments: Comfort focus measures - patient and family ultimately desire to return to [facility] if/when bed and services become available Admit to: SNF Discharge Potential: Fair Length of Stay: <30 days Code Status: DNR/DNI TEDs: Bilateral Knee Rehab Potential: Fair Therapy: Physical Therapy and Occupational Therapy Therapy Orders: Evaluate and Treat Oxygen: No Urinary Catheter: No Orders are good >30 days: Yes Signature: Rodo Brannon
--- NOTE | 2023-04-13 11:49 | ED.GENADULT ---
HPI - General Adult General Chief complaint: Nausea/Vomiting Stated complaint: vomiting Time Seen by Provider: 03/23/23 12:39 History of Present Illness HPI narrative: This document is an addendum to my ER note from 03/23/2023. I inadvertently omitted my physical exam findings from my previous note Constitutional: Appears well-developed . Normally developed. Looks tired and run down. Pale but not diaphoretic or mottling. Normal cap refill. HENT: Head: Atraumatic. Nose: Nose normal. Mouth/Throat: Oral mucosa is clear but dry-not desiccated or cracked. no trismus. Pharynx normal. Tonsils symmetric. No tonsillar enlargement, erythema, or exudate. Eyes: Conjunctivae pale. EOM normal. Pupils equal, round, and reactive to light. No scleral icterus. Neck: Normal range of motion. Neck supple. No tracheal deviation present. Cardiovascular: Normal rate, regular rhythm. No gallop. No friction rub. No murmur heard. Pulmonary/Chest: Effort normal. No stridor. No respiratory distress. No wheezes. No rales. No rhonchi . No ribcage tenderness. Abdominal: Soft. Bowel sounds normal. No distension. No mass. Nauseous and upper abdominal tenderness. No rebound. No guarding. Musculoskeletal: RUE: Normal range of motion. No tenderness. No deformity LUE: Normal range of motion. No tenderness. No deformity RLE: Normal range of motion. No edema. No tenderness. No deformity LLE: Normal range of motion. No edema. No tenderness. No deformity Neurological: Alert and oriented to person, place, and time. Normal strength. CN II-VII intact. No sensory deficit. GCS eye subscore is 4. GCS verbal subscore is 5. GCS motor subscore is 6. Normal coordination Skin: Skin is warm and dry. No rash noted. No pallor. Normal capillary refill. Psychiatric: Normal mood. Normal affect. Related Data Home Medications Medication Instructions Recorded Confirmed flaxseed oil 1,000 mg capsule 1 mg PO DAILY 01/13/22 03/23/23 folic acid 1 mg tablet 1 mg PO HS 01/13/22 03/23/23 hydroxychloroquine 200 mg tablet mg PO .Daily At 12:00PM 01/13/22 02/25/23 melatonin 3 mg capsule 3 mg PO .Bedtime as needed PRN 01/13/22 03/23/23 ascorbate calcium (vitamin C) 500 500 mg PO QDAY 02/12/22 03/23/23 mg tablet pediatric multivitamin 1 tab PO QDAY 02/12/22 03/23/23 nystatin 100,000 unit/gram topical 1 applic topical BID PRN 06/03/22 03/23/23 powder (Nyamyc) levothyroxine 25 mcg capsule 25 mcg PO DAILY 03/23/23 03/23/23 nystatin 100,000 unit/gram topical 1 applic topical TID PRN 03/23/23 03/23/23 cream Previous Rx's Medication Instructions Recorded estradiol 0.01% (0.1 mg/gram) 0.5 g vaginal QWEEK #42.5 grams 01/30/22 vaginal cream warfarin 3 mg tablet 3 mg PO QDAY #72 tabs 01/06/23 bupropion HCl 150 mg 24 hr tablet, 150 mg PO DAILY #90 tabs 02/25/23 extended release clobetasol 0.05 % topical cream 1 applic topical BID 2 weeks #15 02/25/23 grams fluconazole 150 mg tablet 150 mg PO QWEEK #12 tabs 02/25/23 furosemide 40 mg tablet 40 mg PO DAILY #90 tabs 02/25/23 gabapentin 400 mg capsule 1,200 mg (3 x 400 mg) PO BID #540 02/25/23 caps iron,carbonyl 65 mg-vitamin C 125 1 tab PO QDAY #90 tabs 02/25/23 mg tablet,delayed release (Vitron-C) loratadine 10 mg tablet 10 mg PO .Daily as needed PRN 02/25/23 allergic symptoms #90 tabs losartan 25 mg tablet 25 mg PO DAILY #90 tabs 02/25/23 magnesium oxide 400 mg (241.3 mg 400 mg PO .Daily At 12:00PM #90 02/25/23 magnesium) tablet tabs metoprolol succinate 25 mg 25 mg PO DAILY #90 tabs 02/25/23 tablet,extended release 24 hr omeprazole 20 mg capsule,delayed 20 mg PO DAILY #90 caps 02/25/23 release simvastatin 20 mg tablet 20 mg PO .Bedtime #90 tabs 02/25/23 hydrocodone 5 mg-acetaminophen 325 1 tab PO Q8H PRN pain 30 days #60 03/31/23 mg tablet tabs mirtazapine 7.5 mg tablet 7.5 mg PO QHS #30 tabs 03/31/23 ondansetron 4 mg disintegrating 4 mg PO Q6H PRN nausea and 03/31/23 tablet vomiting #20 tabs potassium chloride 10 mEq 20 meq (2 x 10 mEq) PO BID 30 days 03/31/23 capsule,extended release #120 caps prednisone 5 mg tablet 10 mg (2 x 5 mg) PO DAILY #60 tabs 03/31/23 Allergies Allergy/AdvReac Type Severity Reaction Status Date / Time amitriptyline Allergy Severe disorientat Verified 03/23/23 12:55 ion penicillin V Allergy Severe upset Verified 02/25/23 12:46 stomach and rash perphenazine Allergy Severe disorientat Verified 02/25/23 12:46 ion adhesive Allergy Unknown Unknown Verified 02/25/23 12:46 amoxicillin AdvReac Intermediate Diarrhea Verified 02/25/23 12:46 Tricyclic antidepressant Allergy Severe disorientat Uncoded 02/25/23 12:46 ion Bee venom Allergy Mild swells and Uncoded 02/25/23 12:46 area turns red Sulfa drugs Allergy Unknown Unknown Uncoded 02/25/23 12:46 Clavulanate AdvReac Intermediate Diarrhea Uncoded 02/25/23 12:46 PFSH PFS Medical History (Updated 04/08/23 @ 00:00 by Background Daemon) Anemia ?D64.9 - Anemia, unspecified (ICD-10) Psoriasis ?L40.9 - Psoriasis, unspecified (ICD-10) Anemia ?D64.9 - Anemia, unspecified (ICD-10) Yeast dermatitis ?B37.2 - Candidiasis of skin and nail (ICD-10) Left leg cellulitis ?L03.116 - Cellulitis of left lower limb (ICD-10) Environmental allergies ?Z91.09 - Other allergy status, other than to drugs and biological substances (ICD-10) Osteoarthritis of left hip ?M16.12 - Unilateral primary osteoarthritis, left hip (ICD-10) Osteoarthritis of right knee ?M17.11 - Unilateral primary osteoarthritis, right knee (ICD-10) Osteoarthritis of right shoulder ?M19.011 - Primary osteoarthritis, right shoulder (ICD-10) Urethral caruncle ?N36.2 - Urethral caruncle (ICD-10) Weakness ?R53.1 - Weakness (ICD-10) Urinary tract infection ?N39.0 - Urinary tract infection, site not specified (ICD-10) Unsteady gait ?R26.81 - Unsteadiness on feet (ICD-10) Tubular adenoma ?D36.9 - Benign neoplasm, unspecified site (ICD-10) Systemic lupus erythematosus ?M32.9 - Systemic lupus erythematosus, unspecified (ICD-10) Spinal stenosis ?M48.00 - Spinal stenosis, site unspecified (ICD-10) 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81 - Other malaise (ICD-10) Physical debility ?R53.81 - Other malaise (ICD-10) Peripheral edema (05/12/10) ?R60.9 - Edema, unspecified (ICD-10) Osteopenia (05/26/11) ?M85.80 - Other specified disorders of bone density and structure, unspecified site (ICD-10) Nonspecific colitis ?K52.9 - Noninfective gastroenteritis and colitis, unspecified (ICD-10) Long-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 - Immunodeficiency due to drugs (ICD-10) ?T38.0X5A - Adverse effect of glucocorticoids and synthetic analogues, initial encounter (ICD-10) ?Z79.52 - extermination supervisor (current) use of systemic steroids (ICD-10) Hypokalemia ?E87.6 - Hypokalemia (ICD-10) Hypertension (08/16/12) ?I10 - Essential (primary) hypertension (ICD-10) Hyperlipidemia ?E78.5 - Hyperlipidemia, unspecified (ICD-10) High C-reactive protein ?R79.82 - Elevated C-reactive protein (CRP) (ICD-10) Health care directive on file (07/05/15) ?Z78.9 - Other specified health status (ICD-10) Gastroesophageal reflux disease (04/11/10) ?K21.9 - Gastro-esophageal reflux disease without esophagitis (ICD-10) Dilated cardiomyopathy (05/12/10) ?I42.0 - Dilated cardiomyopathy (ICD-10) Dilated bile duct ?K83.8 - Other specified diseases of biliary tract (ICD-10) Depression (08/16/12) ?F32.A - Depression, unspecified (ICD-10) Constipation ?K59.00 - Constipation, unspecified (ICD-10) Colitis ?K52.9 - Noninfective gastroenteritis and colitis, unspecified (ICD-10) Chronic pain syndrome ?G89.4 - Chronic pain syndrome (ICD-10) Chronic pain ?G89.29 - Other chronic pain (ICD-10) Cellulitis ?L03.90 - Cellulitis, unspecified (ICD-10) Atrial fibrillation with rapid ventricular response ?I48.91 - Unspecified atrial fibrillation (ICD-10) Anxiety (04/11/10) ?F41.9 - Anxiety disorder, unspecified (ICD-10) Anticoagulation goal of INR 2 to 3 ?Z51.81 - Encounter for therapeutic drug level monitoring (ICD-10) ?Z79.01 - extermination supervisor (current) use of anticoagulants (ICD-10) Anemia of chronic disease ?D63.8 - Anemia in other chronic diseases classified elsewhere (ICD-10) Abnormal liver function tests ?R79.89 - Other specified abnormal findings of blood chemistry (ICD-10) Hypothyroidism ?E03.9 - Hypothyroidism, unspecified (ICD-10) Long-term (current) use of anticoagulants, INR goal 2.0-3.0 ?Z79.01 - longterm (current) use of anticoagulants (ICD-10) Knee osteoarthritis ?M17.10 - Unilateral primary osteoarthritis, unspecified knee (ICD-10) POLST (Physician Orders for Life-Sustaining Treatment) ?Z78.9 - Other specified health status (ICD-10) Irritation of right ear ?H93.8X1 - Other specified disorders of right ear (ICD-10) History of pulmonary embolism (2017) ?Z86.711 - Personal history of pulmonary embolism (ICD-10) History of peptic ulcer ?Z87.11 - Personal history of peptic ulcer disease (ICD-10) History of deep vein thrombosis (DVT) of lower extremity (2017) ?Z86.718 - Personal history of other venous thrombosis and embolism (ICD-10) Head injury with loss of consciousness ?S06.9X9A - Unspecified intracranial injury with loss of consciousness of unspecified duration, initial encounter (ICD-10) Surgical History S/P foot surgery, right (08/28/14) ?Z98.890 - Other specified postprocedural states (ICD-10) 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) ?Z96.619 - Presence of unspecified artificial shoulder joint (ICD-10) Status post lumbar spinal fusion (04/11/10) ?Z98.1 - Arthrodesis status (ICD-10) Status post cervical spinal arthrodesis (09/2017) ?Z98.1 - Arthrodesis status (ICD-10) History of total hip replacement (05/12/10) ?Z96.649 - Presence of unspecified artificial hip joint (ICD-10) History of left knee replacement (05/12/10) ?Z96.652 - Presence of left artificial knee joint (ICD-10) History of hysterectomy (04/11/10) ?Z90.710 - Acquired absence of both cervix and uterus (ICD-10) History of colonoscopy (05/18/19) ?Z98.890 - Other specified postprocedural states (ICD-10) History of cholecystectomy (05/12/10) ?Z90.49 - Acquired absence of other specified parts of digestive tract (ICD-10) Family History Brother Coronary artery disease Father Cancer Social History (Updated 03/23/23 @ 20:24 by Nick Garcia MD) Narrative: Patient lives at [facility]. Code status is DNR. Healthcare power of prop cutter is her daughter Giselle from [place]. She quit smoking many years ago. Has been chewing nicotine gum since then. She does not drink alcohol What is your current living situation?: I presently have a place to live Problems where you live: no known problems Problems where you live details: no known problems In the past 12 months, utilities in danger of being shut off: no In past 12 months, lack of transportation kept you from medical appts, meetings, work, or getting things needed for daily living: no In the past 12 mos, have been you worried that your food would run out before you had money to buy more?: never true In the past 12 mos, the food you bought just didn't last and you didn't have money to buy more?: never true Highest level of school completed/degree received: 12th grade, no diploma Smoking Status: Never smoker Second hand tobacco smoke exposure: No How often do you have a drink containing alcohol: never How often do you have six or more drinks on one occasion: Never AUDIT-C Alcohol total score: 0 Non-prescribed substance use: denies use Caffeine: Yes How often does anyone, including family, friends and others, physically hurt you: never How often does anyone, including family, friends and others, insult or talk down to you: never How often does anyone, including family, friends and others, threaten you with harm: never How often does anyone, including family, friends and others, scream or curse at you: never Little interest or pleasure in doing things: several days Feeling down, depressed, or hopeless: more than half the days service: No Course Vital Signs Vital signs: Initial Vital Signs Temperature 97.7 F 03/23/23 12:47 Temperature Source Temporal Artery Scan 03/23/23 12:47 Pulse Rate 108 H 03/23/23 12:47 Respiratory Rate 20 03/23/23 12:47 Blood Pressure 152/81 H 03/23/23 12:47 Blood Pressure Mean 104 03/23/23 12:47 Blood Pressure Position Semi-Fowlers 03/23/23 12:47 Pulse Oximetry 96 03/23/23 12:47 Oxygen Delivery Method Room Air 03/23/23 12:47 Vital Signs Temperature 97.7 F 03/23/23 12:47 Pulse Rate 108 H 03/23/23 12:47 Respiratory Rate 20 03/23/23 12:47 Blood Pressure 152/81 H 03/23/23 12:47 Pulse Oximetry 96 03/23/23 12:47 Oxygen Delivery Method Room Air 03/23/23 12:47 Temperature 97.9 F 03/31/23 11:10 Pulse Rate 80 03/31/23 11:10 Respiratory Rate 18 03/31/23 11:10 Blood Pressure 117/76 03/31/23 11:10 Pulse Oximetry 95 03/31/23 11:10 Oxygen Delivery Method Room Air 03/31/23 11:10 Oxygen Flow Rate 0.5 03/31/23 07:34 Medications Administered Medications: Discontinued Medications Generic Name Dose Route Start Last Admin Trade Name Freq PRN Reason Stop Dose Admin Hydrocodone Bitart/Acetaminophen 1 tab 03/23/23 19:56 03/30/23 19:54 Hydrocodone-Acetamin 5-325 Mg 1 Tab PO 1 tab Q8H PRN Administration pain Adenosine 6 mg 03/30/23 10:05 03/30/23 10:05 Adenosine 6 Mg/2ml Inj IVP 03/30/23 10:06 6 mg ONCE ONE Administration Adenosine 12 mg 03/30/23 10:10 03/30/23 10:08 Adenosine 6 Mg/2ml Inj IVP 03/30/23 10:11 12 mg ONCE ONE Administration Ascorbic Acid 500 mg 03/23/23 20:11 03/24/23 09:16 Ascorbic Acid 500 Mg Tablet PO Not Given DAILY LUIS Bupropion HCl 150 mg 03/24/23 09:00 03/24/23 09:16 Bupropion Xl 150 Mg Tablet PO Not Given DAILY LUIS Diltiazem HCl 10 mg 03/30/23 11:31 03/30/23 11:44 Diltiazem 5 Mg/Ml Inj IVP 03/30/23 11:32 10 mg ONCE ONE Administration Folic Acid 1 mg 03/23/23 21:00 03/23/23 20:37 Folic Acid 1 Mg Tablet PO Not Given HS LUIS Hydrocortisone Sodium Succinate 100 mg 03/23/23 16:29 03/23/23 16:41 Hydrocortisone Sod Succinate 50 Mg/Ml Inj IVP 03/23/23 16:30 100 mg ONCE ONE Administration Hydrocortisone Sodium Succinate 100 mg 03/23/23 19:36 03/23/23 20:16 Hydrocortisone Sod Succinate 50 Mg/Ml Inj IVP 03/23/23 19:37 100 mg ONCE ONE Administration Phytonadione 5 mg/ Sodium 50.5 mls @ 100 mls/hr 03/23/23 16:02 03/23/23 18:45 Chloride IVPB 03/23/23 16:32 Infused ONCE ONE Infusion Phytonadione 5 mg/ Sodium 50.5 mls @ 100 mls/hr 03/23/23 19:40 03/31/23 11:07 Chloride IVPB 03/23/23 20:10 Infused ONCE ONE Infusion Lactated Ringer's 1,000 mls @ 500 mls/hr 03/23/23 19:41 03/31/23 11:08 Lactated Ringers 1000 Ml IV 03/23/23 21:40 Infused .Q2H LUIS Infusion Lactated Ringer's 1,000 mls @ 75 mls/hr 03/23/23 20:05 03/31/23 11:07 Lactated Ringers 1000 Ml IV Infused .[id number] LUIS Infusion Diltiazem HCl 125 mg/ Sodium 125 mls @ 5 mls/hr 03/25/23 10:32 03/31/23 11:07 Chloride IVPB Infused .TITRATE LUIS Infusion Protocol Diltiazem HCl 125 mg/ Sodium 125 mls @ 5 mls/hr 03/30/23 11:31 03/31/23 11:06 Chloride IVPB Infused .TITRATE LUIS Infusion Protocol Sodium Chloride 1,000 mls @ 75 mls/hr 03/30/23 18:54 03/31/23 02:48 0.9 % Sodium Chloride 1000 Ml IV 75 mls/hr .[id number] LUIS Administration IV Miscellaneous Supplies 1 each 03/28/23 09:00 03/31/23 09:30 Pharmacist Consult Not Given DAILY LUIS Protocol Lactated Ringer's 1,000 ml 03/23/23 12:47 03/23/23 14:37 Lactated Ringers 1000 Ml IV 03/23/23 12:48 1,000 ml ONCE ONE Administration Levothyroxine Sodium 25 mcg 03/24/23 07:00 03/24/23 07:48 Levothyroxine 25 Mcg Tablet PO Not Given DAILY@0700 LUIS Losartan Potassium 25 mg 03/25/23 09:00 03/31/23 09:29 Losartan Potassium 50 Mg Tablet PO 25 mg DAILY LUIS Administration Magnesium Oxide 400 mg 03/24/23 12:00 03/24/23 11:56 Magnesium Oxide 400 Mg Tablet PO Not Given DAILY@1200 [facility] Melatonin 3 mg 03/23/23 19:41 03/28/23 21:35 Melatonin 3 Mg Tablet PO 3 mg HS PRN Administration Metoclopramide HCl 10 mg 03/23/23 16:29 03/23/23 16:42 Metoclopramide Hcl 5 Mg/Ml Inj IVP 03/23/23 16:30 10 mg ONCE ONE Administration Metoprolol Succinate 25 mg 03/24/23 09:00 03/31/23 09:29 Metoprolol Succinate (Xl) 25 Mg Tab PO 25 mg DAILY LUIS Administration Metoprolol Tartrate 2.5 mg 03/23/23 23:15 03/25/23 17:39 Metoprolol Tartrate 1 Mg/Ml Inj IVP Not Given Q6H [facility] Metoprolol Tartrate 2.5 mg 03/25/23 09:24 03/25/23 09:26 Metoprolol Tartrate 1 Mg/Ml Inj IVP 03/25/23 09:25 2.5 mg ONCE ONE Administration Metoprolol Tartrate 2.5 mg 03/25/23 09:46 03/25/23 09:53 Metoprolol Tartrate 1 Mg/Ml Inj IVP 03/25/23 09:47 2.5 mg ONCE ONE Administration Metoprolol Tartrate 2.5 mg 03/25/23 23:36 03/30/23 10:11 Metoprolol Tartrate 1 Mg/Ml Inj IVP 2.5 mg Q6H PRN Administration Metoprolol Tartrate 2.5 mg 03/30/23 10:20 03/30/23 10:27 Metoprolol Tartrate 1 Mg/Ml Inj IVP 03/30/23 10:21 2.5 mg ONCE ONE Administration Metoprolol Tartrate 5 mg 03/30/23 11:03 03/30/23 11:11 Metoprolol Tartrate 1 Mg/Ml Inj IVP 03/30/23 11:04 5 mg ONCE ONE Administration Morphine Sulfate 2 mg 03/23/23 20:53 03/26/23 01:39 Morphine 2 Mg/Ml Inj IVP 2 mg Q2H PRN Administration Nicotine Polacrilex 2 mg 03/24/23 20:24 03/30/23 14:13 Nicotine 2 Mg Gum BUCCAL 2 mg Q1H PRN Administration Nicotine Cravings Nystatin 1 applic 03/23/23 19:56 03/26/23 22:06 Nystatin Powder TOPICAL 1 applic BID PRN Administration Omeprazole 40 mg 03/23/23 21:00 03/24/23 09:16 Omeprazole [address] PO Not Given BID LUIS Omeprazole 20 mg 03/31/23 07:00 03/31/23 07:40 Omeprazole [address] PO 20 mg DAILY@0700 LUIS Administration Ondansetron HCl 4 mg 03/23/23 12:47 03/23/23 14:37 Ondansetron 2 Mg/Ml Inj IVP 03/23/23 12:48 4 mg ONCE ONE Administration Ondansetron HCl 4 mg 03/23/23 19:41 03/28/23 20:06 Ondansetron 2 Mg/Ml Inj IVP 4 mg Q4H PRN Administration Nausea Pantoprazole Sodium 40 mg 03/23/23 19:36 03/23/23 20:16 Pantoprazole Sodium 40 Mg Inj IVP 03/23/23 19:37 40 mg ONCE ONE Administration Pantoprazole Sodium 40 mg 03/24/23 13:40 03/30/23 09:20 Pantoprazole Sodium 40 Mg Inj IVP Not Given BID LUIS Potassium Chloride 10 meq 03/23/23 21:00 03/24/23 21:01 Potassium Chloride 10 Meq Capsule Er PO 10 meq BID LUIS Administration Potassium Chloride 20 meq 03/25/23 09:00 03/31/23 09:29 Potassium Chloride 10 Meq Capsule Er PO 20 meq BID LUIS Administration Prednisone 10 mg 03/24/23 08:00 03/31/23 07:40 Prednisone 5 Mg Tablet PO 10 mg BIDWM LUIS Administration Prochlorperazine 5 mg 03/23/23 21:50 03/31/23 09:02 Prochlorperazine 5 Mg/Ml Vial IV 5 mg Q6H PRN Administration Simvastatin 20 mg 03/23/23 21:00 03/23/23 20:37 Simvastatin 20 Mg Tablet PO Not Given BEDTIME LUIS Sodium Chloride 5 ml 03/23/23 21:00 03/31/23 09:29 Sodium Chloride 0.9 % (Flush) 10 Ml Syringe IVF Not Given BID LUIS Sodium Chloride 5 ml 03/30/23 10:30 03/30/23 11:11 Sodium Chloride 0.9 % (Flush) 10 Ml Syringe IVF 5 ml .FLUSH PRN Administration Sodium Chloride 250 ml 03/30/23 15:00 03/30/23 13:45 0.9 % Sodium Chloride 250 Ml IV 250 ml Q24H LUIS Administration Warfarin Sodium 3 mg 03/28/23 12:15 03/28/23 14:18 Warfarin 3 Mg Tablet PO 03/28/23 12:16 3 mg ONCE ONE Administration Warfarin Sodium 3 mg 03/29/23 17:00 03/29/23 17:32 Warfarin 3 Mg Tablet PO 03/29/23 17:01 3 mg DAILYC ONE Administration Warfarin Sodium 3 mg 03/30/23 17:00 03/30/23 17:00 Warfarin 3 Mg Tablet PO 03/30/23 17:01 3 mg DAILYC ONE Administration Medical Decision Making Lab Data Labs: Lab Results 03/23/23 03/23/23 03/23/23 Range/Units 13:35 13:59 19:50 WBC 11.91 H (4.50-11.00) K/uL RBC 2.64 L (4.00-5.20) m/uL Hgb 8.1 L (12.0-16.0) gm/dL Hct 25.6 L (33.0-51.0) % MCV 97 (80-100) fL MCH 31 (26-34) pg MCHC 32 (32-36) gm/dL RDW Coeff of Rolo 15.7 H (11.5-15.5) % Plt Count 270 (140-440) K/uL Neut % (Auto) 86.0 H (42.0-72.0) % Lymph % (Auto) 7.3 L (20-44) % [place] % (Auto) 6.1 (0.0-11.0) % Eos % (Auto) 0.1 (0.0-7.0) % Baso % (Auto) 0.3 (0.0-3.0) % Neut # (Auto) 10.20 H (1.7-7.0) K/uL Lymph # (Auto) 0.90 (0.90-2.90) K/uL [place] # (Auto) 0.70 (0.00-0.90) K/UL Eos # (Auto) 0.00 (0.00-0.50) K/uL Baso # (Auto) 0.00 (0.00-0.30) K/uL Abs Immat Gran (auto) 0.00 (0.00-0.30) K/uL Imm/Tot Granulo (auto) 0.2 % INR 6.05 H* (0.91-1.10) Sodium 132 L (135-149) mmol/L Potassium 3.3 L (3.6-5.1) mmol/L Chloride 102 (96-114) mmol/L Carbon Dioxide 27 (20-32) mmol/L Anion Gap 3 L (7-15) mEq/L BUN 40 H (7-30) mg/dL Creatinine 0.6 (0.5-1.5) mg/dL Estimated Creat Clear 51.28 Estimated GFR 91 ml/min Glucose 154 H (60-115) mg/dL Lactate 1.7 (0.5-1.9) mmol/L Calcium 8.5 (8.4-10.6) mg/dL Total Bilirubin 0.5 (0.1-1.5) mg/dL AST 61 H (12-35) U/L ALT 34 (4-35) U/L Alkaline Phosphatase 66 (40-150) U/L Troponin I 0.08 H* (0.01-0.04) ng/mL Total Protein 6.1 (6.0-8.3) g/dL Albumin 3.5 (3.3-5.0) g/dL Lipase 29 (23-300) U/L Stool Occult Blood Positive A (Negative) SARS-CoV-2 (PCR) Negative SARS-CoV-2 (Negative) Influenza Type A (PCR) Negative PCR FLU A (Negative) Influenza Type B (PCR) Negative PCR FLU B (Negative) RSV (PCR) Negative PCR RSV (Negative) Blood Type A Positive Antibody Screen NEGATIVE Crossmatch (AHG) See Detail 03/23/23 Range/Units 20:20 WBC 14.92 H (4.50-11.00) K/uL RBC 2.65 L (4.00-5.20) m/uL Hgb 8.2 L (12.0-16.0) gm/dL Hct 25.6 L (33.0-51.0) % MCV 97 (80-100) fL MCH 31 (26-34) pg MCHC 32 (32-36) gm/dL RDW Coeff of Rolo 16.0 H (11.5-15.5) % Plt Count 208 (140-440) K/uL Neut % (Auto) 93.0 H (42.0-72.0) % Lymph % (Auto) 3.0 L (20-44) % [place] % (Auto) 2.3 (0.0-11.0) % Eos % (Auto) 0.0 (0.0-7.0) % Baso % (Auto) 0.2 (0.0-3.0) % Neut # (Auto) 13.90 H (1.7-7.0) K/uL Lymph # (Auto) 0.40 L (0.90-2.90) K/uL [place] # (Auto) 0.30 (0.00-0.90) K/UL Eos # (Auto) 0.00 (0.00-0.50) K/uL Baso # (Auto) 0.00 (0.00-0.30) K/uL Abs Immat Gran (auto) 0.20 (0.00-0.30) K/uL Imm/Tot Granulo (auto) 1.5 % INR (0.91-1.10) Sodium (135-149) mmol/L Potassium (3.6-5.1) mmol/L Chloride (96-114) mmol/L Carbon Dioxide (20-32) mmol/L Anion Gap (7-15) mEq/L BUN (7-30) mg/dL Creatinine (0.5-1.5) mg/dL Estimated Creat Clear Estimated GFR ml/min Glucose (60-115) mg/dL Lactate (0.5-1.9) mmol/L Calcium (8.4-10.6) mg/dL Total Bilirubin (0.1-1.5) mg/dL AST (12-35) U/L ALT (4-35) U/L Alkaline Phosphatase (40-150) U/L Troponin I 0.13 H* (0.01-0.04) ng/mL Total Protein (6.0-8.3) g/dL Albumin (3.3-5.0) g/dL Lipase (23-300) U/L Stool Occult Blood (Negative) SARS-CoV-2 (PCR) (Negative) Influenza Type A (PCR) (Negative) Influenza Type B (PCR) (Negative) RSV (PCR) (Negative) Blood Type Antibody Screen Crossmatch (AHG) Discharge Plan Discharge Clinical Impression: Anemia, Enteritis, Supratherapeutic INR, Vomiting Patient Disposition: Admitted As Observation Condition: Stable Activity Level: Activity as Tolerated, Up with assist and Use Walker Discharge Diet: Regular
== END 2023-03-31 12:53 | DRG 813 ==
LOC: ED 16:15 → MEDSURG 17:06
PROVIDERS: Internal Medicine; Physician Assistant; Admitting Provider Family Medicine; Emergency Provider Emergency Medicine; PCP Family Medicine; Visit Provider Family Medicine
DX: D68.32 Hemorrhagic disorder due to extrinsic circulating anticoagulants (principal); K92.0 Hematemesis; D62 Acute posthemorrhagic anemia; D84.821 Immunodeficiency due to drugs; I42.0 Dilated cardiomyopathy; I48.20 Chronic atrial fibrillation, unspecified; I24.89 Other forms of acute ischemic heart disease; E27.49 Other adrenocortical insufficiency; I48.0 Paroxysmal atrial fibrillation; T45.515A Adverse effect of anticoagulants, initial encounter; T38.0X5A Adverse effect of glucocorticoids and synthetic analogues, initial encounter; M32.9 Systemic lupus erythematosus, unspecified; Z79.01 Long term (current) use of anticoagulants; Z79.52 Long term (current) use of systemic steroids; K52.9 Noninfective gastroenteritis and colitis, unspecified; E87.6 Hypokalemia; R53.1 Weakness; I10 Essential (primary) hypertension; K21.9 Gastro-esophageal reflux disease without esophagitis; G89.29 Other chronic pain; R26.81 Unsteadiness on feet; Z86.718 Personal history of other venous thrombosis and embolism; Z87.11 Personal history of peptic ulcer disease; Z86.711 Personal history of pulmonary embolism
CPT/HCPCS: 00410; 00731; 36415; 36430; 43235; 51701; 51798; 74177; 80048; 80053; 81001; 82270; 83605; 83690; 83735; 83880; 84145; 84443; 84484; 85018; 85025; 85027; 85610; 86850; 86900; 86901; 86922; 87040; 87631; 93005; 94761; 97110; 97116; 97162; 97166; 97530; 97535; 99100; 99284; A9270; C9113; G0378; J0153; J0780; J1720; J2270; J2371; J2405; J2704; J2765; J3430; J3490; J7030; J7050; J7120; J7512; P9016; Q9967

== ENCOUNTER 2023-03-31 12:42 | Outpatient (CLI) | payer MEDICARE, BC, SELFPAY ==
--- OUTSIDE RECORDS SUMMARY | 2023-04-01 14:11 | XMS_ITS | Continuity of Care Document ---
Author Name Unknown Organization [facility] Address [address] [place] [address] Phone Care Team Providers Care Documentum Consultant Name Role Phone Chase Snowden MD Unavailable [...] Seg Office/Outpatient Visit,Est, Mod 2017 Office/Outpatient Visit,New, [facility] 2017 Office/Outpatient Visit,Est, Mod 2011 Postop Followup Visit Remove Lumbar Spine Lamina, 1 Seg Pa Assist Remove Lumbar Spine Lamina, 1 Seg Office/Outpatient Visit,New, Mod 2011 X-Ray Exam Lwr Spine, Min 4 Views Advance Directives Directive Yes / No Effective Date File Name No Information Encounters Encounter Description Practice Location Reason(s) For Visit Diagnoses Date Provider Providers Copied on Encounter [facility], [address] [place] [address], [id number], [place] tel:[phone] No Information 1 Sp Stone. [facility], [address] [place] [address], [id number], [place]. [phone] [facility], [address] [place] [address], [id number], [place] tel:[phone] [facility] Arthrodesis status 1 No Information Office/Outpa tient Visit,Est, Mod [facility], [address] [place] [address], [id number], [place] tel:[phone] [facility] No Information No Information Referring Provider: Prakash Mccauley, [facility] [address] [place], [address]. tel:[phone] Office/Outpa tient Visit,Est, Mod [facility], [address] [place] [address], [id number], [place] tel:[phone] [facility] Arthrodesis status 0 Sp Stone. [facility], [facility] [address] [place] [address], [id number], [place]. tel:[phone] Referring Provider: Prakash Mccauley, [facility] [address] [place], [address]. tel:[phone] Office/Outpa tient Visit,Est, Mod [facility], [address] [place] [address], [id number], [place] tel:[phone] [facility] Kyphosis 0 Sp Stone. [facility], [facility] [address] [place] [address], [address], [id number], [place]. tel:[phone] Referring Provider: Prakash Mccauley, [facility] [address] [place], [address]. tel:[phone] Office/Outpa tient Visit,Est, Low [facility], [address], [place], [id number], [place] tel:[phone] [facility] Arthrodesis status Sp Stone. [facility], [address] [place], [address], [id number], [place]. tel:[phone] Referring Provider: Prakash Mccauley, [facility] [address] [place], [address]. tel:[phone] Office/Outpa tient Visit,Est, Low [facility], [address], [place], [place], [id number], [place] tel:[phone] [facility] Encounter for other specified surgical aftercare Sp Stone. [facility], [address] [place] [address], [address], [id number], [place]. tel:[phone] Referring Provider: Prakash Mccauley, [facility] [address] [place], [address]. tel:[phone] [facility], [address] [place] [address], [id number], [place] tel:[phone] [facility] Encounter for other specified surgical aftercare Sp Stone. [facility], [address] [place] [address], [address], [id number], [place]. tel:[phone] Referring Provider: Prakash Mccauley, [facility] [address] [place], [address]. tel:[phone] [facility], [address] [place] [address], [id number], [place] tel:[phone] [facility] Encounter for other specified surgical aftercare Sp Stone. [facility], [address] [place], [address], [id number], [place]. tel:[phone] Referring Provider: Prakash Mccauley, [facility] [address] [place], [address]. tel:[phone] [facility], [address], [place], [place], [id number], [place] tel:[phone] [facility] No Information Chris Meneses. [facility], [address] [place] [address], [place], [address], [place]. tel:[phone] Referring Provider: Prakash Mccauley, [facility] [address] [place], [address]. tel:[phone] [facility], [address], [place], [place], [id number], [place] tel:[phone] [facility] No Information Sp Stone. [facility], [address] [place] [address], [address], [id number], [place]. tel:[phone] Referring Provider: Prakash Mccauley, [facility] [address] [place], [address]. tel:[phone] Office/Outpa tient Visit,Est, Mod [facility], [address] [place] [address], [id number], [place] tel:[phone] [facility] Spinal stenosis, cervical region Sp Stone. [facility], [address] [place] [address], [address], [id number], [place]. tel:[phone] Referring Provider: Prakash Mccauley, [facility] [address] [place], [address]. tel:[phone] Office/Outpa tient Visit,New, Mod [facility], [address] [place] [address], [id number], [place] tel:[phone] [facility] Postlaminect jasmine kyphosisSpin al stenosis, cervical regionArthro desis status No Information Referring Provider: Prakash Mccauley, [facility] [address] [place], [address]. tel:[phone] Office/Outpa tient Visit,Est, Mod Z [facility], [address] [facility], [place], [address], [place] tel:[phone] [facility] No Information No Information Referring Provider: Prakash Mccauley, [facility] [address] [place], [address]. tel:[phone] Z [facility], [address] [facility], [place], [address], [place] tel:[phone] [facility] No Information No Information Referring Provider: Prakash Mccauley, [facility] [address] [place], [address]. tel:[phone] [facility], [address] [facility], [place], [address], [place] tel:[phone] [facility] No Information No Information Referring Provider: Prakash Mccauley, [facility] [address] [place], [address]. tel:[phone] Z [facility], [address] [facility], [place], [address], [place] tel:[phone] [facility] LUPUS ERYTHEMATOSU SOsteopeniaA nxietyGERDCA TARACT NOS No Information Office/Outpa tient Visit,New, Mod Z [facility], [address] [facility], [place], [address], [place] tel:[phone] [facility] No Information No Information Referring Provider: Prakash Mccauley, [facility] [address] [place], [address]. tel:[phone] Family History Family Member Type Diagnosis Age At Onset Mother Problem (finding) hypothyroidism Father Problem (finding) Cancer, unknown Mother Problem (finding) hypertension Problem (finding) Family history of prost ate cancer Payers Payer name Insurance type Covered green party ID Avaa angus(s) [facility] [id number] Medicare [facility] [id number] 1 Social History Type Description Quantity Date [...]
== END 2023-03-31 12:43 | disposition home or self-care (01) ==
LOC: AMB 04-01 14:09
PROVIDERS: PCP Family Medicine; Visit Provider Emergency Medicine
DX: R53.1 Weakness (principal)
CPT/HCPCS: A0425; A0428

== ENCOUNTER 2023-04-27 19:59 | Outpatient (REF) | payer MEDICARE, BC, SELFPAY ==
--- OUTSIDE RECORDS SUMMARY | 2023-04-27 20:05 | XMS_ITS | Continuity of Care Document ---
Author Name Unknown Organization [facility] Address [address] [place] [address] Phone Care Team Providers Care Composition Stone Applicator Name Role Phone Chase Snowden MD Unavailable [...] Seg Office/Outpatient Visit,Est, Mod 2017 Office/Outpatient Visit,[place], [facility] [place] Office/Outpatient Visit,Est, Mod 2011 Postop Followup Visit Remove Lumbar Spine Lamina, 1 Seg Pa Assist Remove Lumbar Spine Lamina, 1 Seg Office/Outpatient Visit,New, Mod 2011 X-Ray Exam Lwr Spine, Min 4 Views Advance Directives Directive Yes / No Effective Date File Name No Information Encounters Encounter Description Practice Location Reason(s) For Visit Diagnoses Date Provider Providers Copied on Encounter [facility], [address] [place] [address], [id number], [place] tel:[phone] No Information 1 Sp Stone. [facility] [place], [address] [place] [address], [id number], [place]. [phone] [facility], [address] [place] [address], [id number], [place] tel:[phone] [facility] [place] Arthrodesis status 1 No Information Office/Outpa tient Visit,Est, Mod [facility], [address] [place] [address], [id number], [place] tel:[phone] [facility] [place] No Information No Information Referring Provider: Prakash Mccauley, [facility] [address] [place], [address]. tel:[phone] Office/Outpa tient Visit,Est, Mod [facility], [address] [place] [address], [id number], [place] tel:[phone] [facility] Arthrodesis status 0 Sp Stone. [facility] [place], [facility] [address] [place] [address], [id number], [place]. tel:[phone] Referring Provider: Prakash Mccauley, [facility] [address] [place], [address]. tel:[phone] Office/Outpa tient Visit,Est, Mod [facility], [address] [place] [address], [id number], [place] tel:[phone] [facility] Kyphosis 0 Sp Stone. [facility] [place], [facility] [address] [place] [address], [address], [id number], [place]. tel:[phone] Referring Provider: Prakash Mccauley, [facility] [address] [place], [address]. tel:[phone] Office/Outpa tient Visit,Est, Low [facility], [address], [place], [id number], [place] tel:[phone] [facility] [place] Arthrodesis status Sp Stone. [facility] [place], [address], [address], [id number], [place]. tel:[phone] Referring Provider: Prakash Mccauley, [facility] [address] [place], [address]. tel:[phone] Office/Outpa tient Visit,Est, Low [facility], [address], [place], [place], [id number], [place] tel:[phone] [facility] Encounter for other specified surgical aftercare Sp Stone. [facility] [place], [address] [place] [address], [address], [id number], [place]. tel:[phone] Referring Provider: Prakash Mccauley, [facility] [address] [place], [address]. tel:[phone] [facility], [address] [place] [address], [id number], [place] tel:[phone] [facility] Encounter for other specified surgical aftercare Sp Stone. [facility] [place], [address] [place] [address], [address], [id number], [place]. tel:[phone] Referring Provider: Prakash Mccauley, [facility] [address] [place], [address]. tel:[phone] [facility], [address] [place] [address], [id number], [place] tel:[phone] [facility] Encounter for other specified surgical aftercare Sp Stone. [facility] [place], [address], [address], [id number], [place]. tel:[phone] Referring Provider: Prakash Mccauley, [facility] [address] [place], [address]. tel:[phone] [facility], [address], [place], [place], [id number], [place] tel:[phone] [facility] No Information Chris Meneses. [facility] [place], [address] [place] [address], [place], [address], [place]. tel:[phone] Referring Provider: Prakash Mccauley, [facility] [address] [place], [address]. tel:[phone] [facility], [address], [place], [place], [id number], [place] tel:[phone] [facility] No Information Sp Stone. [facility] [place], [address] [place] [address], [address], [id number], [place]. tel:[phone] Referring Provider: Prakash Mccauley, [facility] [address] [place], [address]. tel:[phone] Office/Outpa tient Visit,Est, Mod [facility], [address] [place] [address], [id number], [place] tel:[phone] [facility] [place] Spinal stenosis, cervical region Sp Stone. [facility] [place], [address] [place] [address], [address], [id number], [place]. tel:[phone] Referring Provider: Prakash Mccauley, [facility] [address] [place], [address]. tel:[phone] Office/Outpa tient Visit,New, Mod [facility], [address] [place] [address], [id number], [place] tel:[phone] [facility] [place] Postlaminect jasmine kyphosisSpin al stenosis, cervical regionArthro desis status No Information Referring Provider: Prakash Mccauley, [facility] [address] [place], [address]. tel:[phone] Office/Outpa tient Visit,Est, Mod Z [facility], [address] [facility], [place], [address], [place] tel:[phone] [facility] [place] No Information No Information Referring Provider: Prakash Mccauley, [facility] [address] [place], [address]. tel:[phone] Z [facility], [address] [facility], [place], [address], [place] tel:[phone] [facility] [place] No Information No Information Referring Provider: Prakash Mccauley, [facility] [address] [place], [address]. tel:[phone] [facility] [place], [address] [facility] [address], [place], [address], [place] tel:[phone] [facility] No Information No Information Referring Provider: Prakash Mccauley, [facility] [address] [place], [address]. tel:[phone] Z [facility], [address] [facility] [address], [place], [address], [place] tel:[phone] [facility] [place] LUPUS ERYTHEMATOSU SOsteopeniaA nxietyGERDCA TARACT NOS No Information Office/Outpa tient Visit,New, Mod Z [facility], [address] [facility] [address], [place], [address], [place] tel:[phone] [facility] [place] No Information No Information Referring Provider: Prakash Mccauley, [facility] [address] [place], [address]. tel:[phone] Family History Family Member Type Diagnosis Age At Onset Mother Problem (finding) hypothyroidism Father Problem (finding) Cancer, unknown Mother Problem (finding) hypertension Problem (finding) Family history of prost ate cancer Payers Payer name Insurance type Covered republican ID Avaa angus(s) [facility] [id number] Medicare [facility] [id number] 1 Social History Type Description Quantity Date [...]
[2023-04-27 20:14] LABS: Basophils Percent Auto 0.5 % (0.0-3.0); Eosinophils Percent Auto 1.8 % (0.0-7.0); Hematocrit 41.9 % (33.0-51.0); Hemoglobin* 12.7 gm/dL (12.0-16.0); Immature Granulocytes Pct Auto 0.2 %; Lymphocytes Percent Auto 9.2 % (20-44); Mean Corpuscular HGB Conc 30 gm/dL (32-36); Mean Corpuscular Hemoglobin 30 pg (26-34); Mean Corpuscular Volume 98 fL (80-100); Monocytes Percent Auto 8.1 % (0.0-11.0); Neutrophils Percent Auto 80.2 % (42.0-72.0); Platelet Count* 261 K/uL (140-440); RDW Coefficient of Variation % 16.1 % (11.5-15.5); Red Blood Count 4.28 m/uL (4.00-5.20); White Blood Count* 11.81 K/uL (4.50-11.00)
[2023-04-27 20:15] LABS: Slide Review Reflex No
[2023-04-27 20:45] LABS: Aspartate Amino Transferase* 30 U/L (12-35)
== END 2023-04-27 20:00 | disposition home or self-care (01) ==
LOC: NPINS 19:59
PROVIDERS: PCP Family Medicine; Visit Provider Nurse Practitioner
DX: M06.4 Inflammatory polyarthropathy (principal); Z79.899 Other long term (current) drug therapy; I48.91 Unspecified atrial fibrillation; Z79.01 Long term (current) use of anticoagulants
CPT/HCPCS: 80048; 84450; 85025; 85610

== ENCOUNTER 2023-05-06 02:28 | Outpatient (REF) | payer MEDICARE, BC, SELFPAY ==
--- OUTSIDE RECORDS SUMMARY | 2023-05-06 02:32 | XMS_ITS | Continuity of Care Document ---
Author Name Unknown Organization [facility] Address [address] [place] [address] Phone Care Team Providers Care Boiler Helper Name Role Phone Chase Snowden MD Unavailable [...] Seg Office/Outpatient Visit,Est, Mod 2017 Office/Outpatient Visit,New, [facility] 2017 Office/Outpatient Visit,Est, Mod 2011 Postop Followup Visit Remove Lumbar Spine Lamina, 1 Seg Pa Assist Remove Lumbar Spine Lamina, 1 Seg Office/Outpatient Visit,New, Mod 2011 X-Ray Exam Lwr Spine, Min 4 Views Advance Directives Directive Yes / No Effective Date File Name No Information Encounters Encounter Description Practice Location Reason(s) For Visit Diagnoses Date Provider Providers Copied on Encounter [facility], [address] [place] [address], [id number], [place] tel:[phone] No Information 1 Sp Stone. [facility] [place], [address] [place] [address], [id number], [place]. [phone] [facility], [address] [place] [address], [id number], [place] tel:[phone] [facility] Arthrodesis status 1 No Information Office/Outpa tient Visit,Est, Mod [facility], [address] [place] [address], [id number], [place] tel:[phone] [facility] [place] No Information No Information Referring Provider: Prakash Mccauley, [facility] [address] [place], [address]. tel:[phone] Office/Outpa tient Visit,Est, Mod [facility], [address] [place] [address], [id number], [place] tel:[phone] [facility] Arthrodesis status 0 Sp Stone. [facility] [place], [facility] [address] [place] [address], [id number], [place]. tel:[phone] Referring Provider: Prakash Mccauley, [facility] [address] [place], [address]. tel:[phone] Office/Outpa tient Visit,Est, Mod [facility], [address] [place] [address], [id number], [place] tel:[phone] [facility] Kyphosis 0 Sp Stone. [facility] [place], [facility] [address] [place] [address], [address], [id number], [place]. tel:[phone] Referring Provider: Prakash Mccauley, [facility] [address] [place], [address]. tel:[phone] Office/Outpa tient Visit,Est, Low [facility], [address], [place], [id number], [place] tel:[phone] [facility] [place] Arthrodesis status Sp Stone. [facility] [place], [address] [place], [address], [id number], [place]. tel:[phone] Referring Provider: Prakash Mccauley, [facility] [address] [place], [address]. tel:[phone] Office/Outpa tient Visit,Est, Low [facility], [address], [place], [place], [id number], [place] tel:[phone] [facility] Encounter for other specified surgical aftercare Sp Stone. [facility], [address] [place] [address], [address], [id number], [place]. tel:[phone] Referring Provider: Prakash Mccauley, [facility] [address] [place], [address]. tel:[phone] [facility], [address] [place] [address], [id number], [place] tel:[phone] [facility] Encounter for other specified surgical aftercare Sp Stone. [facility] [place], [address] [place] [address], [address], [id number], [place]. tel:[phone] Referring Provider: Prakash Mccauley, [facility] [address] [place], [address]. tel:[phone] [facility], [address] [place] [address], [id number], [place] tel:[phone] [facility] Encounter for other specified surgical aftercare Sp Stone. [facility], [address] [place], [address], [id number], [place]. tel:[phone] Referring Provider: Prakash Mccauley, [facility] [address] [place], [address]. tel:[phone] [facility], [address], [place], [place], [id number], [place] tel:[phone] [facility] No Information Chris Meneses. [facility] [place], [address] [place] [address], [place], [address], [place]. tel:[phone] Referring Provider: Prakash Mccauley, [facility] [address] [place], [address]. tel:[phone] [facility], [address], [place], [place], [id number], [place] tel:[phone] [facility] No Information Sp Stnoe. [facility] [place], [address] [place] [address], [address], [id number], [place]. tel:[phone] Referring Provider: Prakash Mccauley, [facility] [address] [place], [address]. tel:[phone] Office/Outpa tient Visit,Est, Mod [facility], [address] [place] [address], [id number], [place] tel:[phone] [facility] [place] Spinal stenosis, cervical region Sp Stone. [facility] [place], [address] [place] [address], [address], [id number], [place]. tel:[phone] Referring Provider: Prakash Mccauley, [facility] [address] [place], [address]. tel:[phone] Office/Outpa tient Visit,New, Mod [facility], [address] [place] [address], [id number], [place] tel:[phone] [facility] Postlaminect jasmine kyphosisSpin al stenosis, cervical regionArthro desis status No Information Referring Provider: Prakash Mccauley, [facility] [address] [place], [address]. tel:[phone] Office/Outpa tient Visit,Est, Mod Z [facility], [address] [facility], [place], [address], [place] tel:[phone] [facility] No Information No Information Referring Provider: Prakash Mccauley, [facility] [address] [place], [address]. tel:[phone] [facility], [address] [facility] [address], [place], [address], [place] tel:[phone] [facility] [place] No Information No Information Referring Provider: Prakash Mccauley, [facility] [address] [place], [address]. tel:[phone] [facility] [place], [address] [facility] [address], [place], [address], [place] tel:[phone] [facility] No Information No Information Referring Provider: Prakash Mccauley, [facility] [address] [place], [address]. tel:[phone] [facility], [address] [facility], [place], [address], [place] tel:[phone] [facility] [place] LUPUS ERYTHEMATOSU SOsteopeniaA nxietyGERDCA TARACT NOS No Information Office/Outpa tient Visit,New, Mod Z [facility], [address] [facility] [address], [place], [address], [place] tel:[phone] [facility] [place] No Information No Information Referring Provider: Prakash Mccauley, [facility] [address] [place], [address]. tel:[phone] Family History Family Member Type Diagnosis Age At Onset Mother Problem (finding) hypothyroidism Father Problem (finding) Cancer, unknown Mother Problem (finding) hypertension Problem (finding) Family history of prost ate cancer Payers Payer name Insurance type Covered green party ID Avaa angus(s) [facility] [id number] Medicare [facility] [id number] 1 Social History Type Description Quantity Date [...]
[2023-05-06 05:33] LABS: Chloride* 102 mmol/L (96-114)
[2023-05-06 05:34] LABS: Potassium* 4.9 mmol/L (3.6-5.1); Sodium* 140 mmol/L (135-149)
[2023-05-06 05:36] LABS: Creatinine* 1.1 mg/dL (0.5-1.5); Estimated Glomerular Filt Rate 51 ml/min
[2023-05-06 05:37] LABS: Anion Gap 11 mEq/L (7-15); Blood Urea Nitrogen* 27 mg/dL (7-30); Calcium* 8.7 mg/dL (8.4-10.6); Carbon Dioxide* 27 mmol/L (20-32); Glucose* 86 mg/dL (60-115)
== END 2023-05-06 02:29 | disposition home or self-care (01) ==
LOC: NPINS 02:28
PROVIDERS: PCP Family Medicine; Visit Provider Family Medicine
DX: M32.9 Systemic lupus erythematosus, unspecified (principal); M06.9 Rheumatoid arthritis, unspecified; I48.91 Unspecified atrial fibrillation; I50.20 Unspecified systolic (congestive) heart failure
CPT/HCPCS: 80048

== ENCOUNTER 2023-06-05 08:10 | Outpatient (CLI) | payer MEDICARE, BC, SELFPAY ==
--- OUTSIDE RECORDS SUMMARY | 2023-06-07 09:17 | XMS_ITS | Encounter Summary ---
Author Name Unknown Organization [facility] Address [address] [place] [address] Care Team Providers Care Steam Gigger Name Role Phone Elsewhere, Pcp Primary Care Provider Unavailabl e Reason for Visit * Reason Onset Date Comments renewal of med monitoring letter 02/24/2023 Taking MTX Encounter Details Date Type Department Care Team (Latest Contact Info) Description 02/24/2023 Clinical Communication Division of Rheumatology in [place], [place] [address] [place] [phone] El Aldana, TRAVEL OCCUPATIONAL THERAPIST, C.N.P. [address] [place] [phone] renewal of med monitoring letter (Taking MTX) [...] often do you attend chur ch or quaker services? 1 to 4 times per year 11/21/2021 Do you belong to any clubs o r organizations such as sikh groups, unions, fraternal or athletic groups, or [...] and heating? Not hard at all 11/21/2021 [facility] - Occupational Stress Questionnaire [...] Master's degree (e.g., MA, MS, Sariah, MEd, HOSE TUBING BACKER, OFE) 12/22/2018 Sex and Gender Information Value [...] documented as of this encounter Care Teams Steam Gigger Relationship Specialty Start Date End Date Elsewhere, Pcp PCP - General Internal Medicine 11/20/21 documented as of this encounter
--- OUTSIDE RECORDS SUMMARY | 2023-06-07 09:17 | XMS_ITS | Encounter Summary ---
Author Name Unknown Organization [facility] Address [address] [place] [address] Care Team Providers Care Occupational Therapy Co Director Name Role Phone Elsewhere, Pcp Primary Care Provider Unavailabl e Reason for Visit * Reason Comments Med Refill Encounter Details Date Type Department Care Team (Late st Contact Info) Description 01/02/2023 Refill Division of Rheumatology in [place], [place] [address] [place] [phone] El Aldana, SENIOR MOBILE SOLUTIONS ARCHITECT, C.N.P. [address] [place] [address] Med Refill Social History Tobacco Use Types [...] any clubs o r organizations such as roman catholic groups, unions, fraternal or athletic groups, [...] and heating? Not hard at all 11/21/2021 [facility] of Occupat ional Health - Occupational [...] Master's degree (e.g., MA, MS, Sariah, MEd, YOUTH TEACHER, OFE) 12/22/2018 Sex and Gender Information Value [...] Rheum visit: 10/16/22 with El Aldana APRN, FLORAL ASSOCIATE Future office visit: ordered, not yet scheduled [...] documented as of this encounter Care Teams Occupational Therapy Co Director Relationship Specialty Start Date End Date Elsewhere, Pcp PCP - General Internal Medicine 11/20/21 documented as of this encounter
--- OUTSIDE RECORDS SUMMARY | 2023-06-07 09:17 | XMS_ITS | Encounter Summary ---
Author Name Unknown Organization [facility] Address [address] [place] [address] Care Team Providers Care Compliance Representative Name Role Phone Elsewhere, Pcp Primary Care Provider Unavailabl e Reason for Visit * Reason Comments Lab Monitoring Collected 04/27/23 Encounter Details Date Type Department Care Team (Latest Contact Info) Description 04/28/2023 Clinical Communication Division of Rheumatology in [place], [place] [address] [place] [address] El Aldana, UPSETTER HELPER, C.N.P. [address] [place] [address] Lab Monitoring (Collected 04/27/23) Social History Tobacco [...] any clubs o r organizations such as sikhism groups, unions, fraternal or athletic groups, or [...] and heating? Not hard at all 11/21/2021 [facility] of Occupat ional Health - [...] Master's degree (e.g., MA, MS, Sariah, MEd, LATIN AMERICAN STUDIES DIRECTOR, OFE) 12/22/2018 Sex and Gender Information Value Date Recorded Sex Assigned at Female 11/21/2021 2:31 PM CDT Gender Identity Female 11/22/2018 10:59 PM CDT Sexual Orientation Straight 11/22/2018 10 :59 PM CDT documented as of this encounter Miscellaneous Notes * Telephone Encounter - Candice Victor, R.N. - 04/28/2023 4:18 PM CNC MILL AND LATHE OPERATOR Documentation note only, patient not contacted ASSESSMENT Rheumatology monitoring labs completed at an external lab on 04/27/23 were reviewed per Rheumatology division parameters. Labs reviewed: absolute neutrophil count, AST, creatinine, hemoglobin, leukocytes, platelets External labs were entered into Labs Tab and sent for scanning. Labs Tab of Chart Review PLAN Patient to continue with current plan of care. MILL AND LATHE OPERATOR documented in this encounter Plan of Treatment Not on file documented as of this encounter Procedures Procedure Name Priority Date/Time Associated Diagnosis Comments CBC WITH DIFFERENTIAL, B Routine 04/27/2023 ASPARTATE AMINOTRANSFERASE (AST), S/P Routine 04/27/2023 CREATININE WITH EGFR, S/P Routine 04/27/2023 documented in this encounter Results * AST (Aspartate Aminotransferase) (04/27/2023) EXT AST 30 12 - 35 [facility] Blood (Blood, Venous) El Aldana APRN, C.N.P. LAB BLOOD AD D-ON Performing Organization Address City/[facility] Co de Phone Number [facility] [address] [place] [address] * Creatinine with Estimated GFR (04/27/2023) EXT Creatinine 0.8 0.5 - 1.5 mg/dL [facility] Blood (Blood, Venous) El Aldana APRN, C.N.P. LAB BLOOD AD D-ON Performing Organization Address City/[facility]/ZIP Co de Phone Number [facility] [address] [place] [address] * (ABNORMAL) CBC with Differential, Blood (04/27/2023) EXT Platelet Count 261 140 - 440 [facility] EXT Neutrophils 9.5(A) 1.7 - 7 [facility] EXT Hemoglobin 12.7 12 - 16 [facility] EXT White Blood Cell (WBC) Count 11.8(A) 4.5 - 11.0 [facility] Blood (Blood, Venous) El Aldana APRN, C.N.P. LAB BLOOD AD D-ON [facility] [address] [phone] documented in this encounter Visit Diagnoses Not on filedocumented in this encounter Additional Health Concerns Infection Onset Date Last Indicated Resolved Time Protective Environment 08/17/2022 08/17/2022 documented as of this encounter Care Teams Compliance Representative Relationship Specialty Start Date End Date Elsewhere, Pcp PCP - General Internal Medicine 11/20/21 documented as of this encounter
--- OUTSIDE RECORDS SUMMARY | 2023-06-07 09:17 | XMS_ITS | Encounter Summary ---
Author Name Unknown Organization [facility] Address [address] [place] [address] Care Team Providers Care Tool Setter Apprentice Name Role Phone Elsewhere, Pcp Primary Care Provider Unavailabl e Reason for Visit * Reason Comments Med Refill Encounter Details Date Type Department Care Team (Late st Contact Info) Description 02/22/2023 Refill Division of Rheumatology in [place], [place] [address] [place] [phone] Brittany Jauregui, EVE, C.N.P., M.S. [address] [place] [address] Med Refill Social History Tobacco Use Types [...] often do you attend chur ch or religion services? 1 to 4 times per year [...] and heating? Not hard at all 11/21/2021 [facility] of Occupat ional Health - [...] place to sleep or slept in a detention (including now)? No 11/21/2021 Nutrition Answer Date [...] Master's degree (e.g., MA, MS, Sariah, MEd, PILOT CAPTAIN, OFE) 12/22/2018 Sex and Gender Information Value [...] Rheum visit: 10/16/22 with El Aldana APRN, SOFTWARE CONTROLS ENGINEER Future office visit: not ordered Last monitoring [...] Panel, Blood (02/25/2023) EXT Alkaline Phosphatase 67 [facility] Blood (Blood, Venous) 02/25/2023 Historical Provider LAB BLOOD NON ADD-ON [facility] [address] [place] [address], [facility] [phone] * EXT Complete Metabolic Panel, Blood (02/25/2023) EXT AST 48 [facility] EXT ALT 25 [facility] EXT Creatinine 0.7 mg/dL [facility] Blood (Blood, Venous) 02/25/2023 Historical Provider LAB BLOOD NON ADD-ON Performing Organization Address City/[facility]/ZIP Co de Phone Number [facility] [address] [place], [place] [phone] [place] [address] * EXT Complete Blood Count, Blood (02/25/2023) EXT Hemoglobin 11.5 [facility] EXT Leukocytes 9.71 [facility] EXT Platelet Count 312 [facility] Blood (Blood, Venous) 02/25/2023 Historical Provider LAB BLOOD NON ADD-ON Performing Organization Address [facility] Co de Phone Number [facility] [address] [phone] documented in this encounter Visit Diagnoses Diagnosis Lupus Erythematosus documented in this encounter Additional Health Concerns Infection Onset Date Last Indicated Resolved Time Protective Environment 08/17/2022 08/17/2022 documented as of this encounter Care Teams Tool Setter Apprentice Relationship Specialty Start Date End Date Elsewhere, Pcp PCP - General Internal Medicine 11/20/21 documented as of this encounter
--- OUTSIDE RECORDS SUMMARY | 2023-06-07 09:17 | XMS_ITS ---
Author Name Unknown Organization [facility] Address [address] [place] [address] Care Team Providers Care Slasher Machine Operator Name Role Phone Unavailable Unavailable Unavailable Surgery Details Not on file Complications Check Surgery Details section. Procedure Estimated Blood Loss Check Surgery Details section. Procedure Findings Check Surgery Details section. Procedure Specimens Taken Check Surgery Details section.
--- OUTSIDE RECORDS SUMMARY | 2023-06-07 09:17 | XMS_ITS | Clinical Summary ---
Author Name Unknown Organization [facility] Address [address] [place] [address] Care Team Providers Care Manager Hvac Name Role Phone Elsewhere, Pcp Primary Care Provider Unavailabl e Source Comments Patient records contain information from all sites at [facility]. For routine questions regarding patient records, call [phone] during business hours, M-F 8:00 AM - 5:00 PM Central Time. Record requests for emergency care only can be directed to [phone] at any time.[facility] Allergies Active Allergy Reactions Criticality Noted Date [...] 04/28/2023 Clinical Communication Division of Rheumatology in [place], [place] [address] [place] [address] El Aldana, EVE, C.N.P. Lab Monitoring (Collected [...] often do you attend chur ch or hoahaoism services? 1 to 4 times per year 11/21/2021 Do you belong to any clubs o r organizations such as latter day groups, unions, fraternal or athletic groups, or [...] and heating? Not hard at all 11/21/2021 [facility] of Occupat ional Health - Occupational Stress [...] Master's degree (e.g., MA, MS, Sariah, MEd, SHIPPING HELPER, OFE) 12/22/2018 Sex and Gender Information [...] this topic Medical Devices Implanted Type Area Impregnation Operator Device Identifier Shelf Expiration Date Model / Serial / Lot Hardware E.G. Pins/Screws/Mushtaq s Hardware e.g. pins/screws /rods N/A: Mouth Screw Biomet 3.5 Hex Lock 4.75 X 20 - Simmons [id number] Implanted:Qty: 1 on 06/15/2016 Hardware e.g. pins/screws /rods Other/Legacy - See Implant Description BioMet Description:Device Manufactu [employer] Body Location - Other. Left. Device Status Text - [id number]. Conversions - Default Historical Implant Device Implanted:06/15 (Quantity not on file) Hip Implant Right: Hip Description:Body Location - Hip R. Device Status Text - Hip Imp. Conversions - Default Historical Implant Device Implanted:06/15 (Quantity not on file) Knee Implant Left: Knee Description:Body Location - Knee L. Device Status Text - Knee Imp. Screw Biomet 3.5 Non-Lock 4.75 X 25 - Simmons [id number] Implanted:Qty: 1 on 06/15/2016 Shoulder Implant Other/Legacy - See Implant Description BioMet Description:Device Manufactu rer adsquare [employer] Body Location - Other. Left. Device Status Text - [id number]. Procedures Procedure Name Priority Date/Time Associated Diagnosis Comments ASPARTATE AMINOTRANSFERASE (AST), S/P Routine 04/27/2023 CREATININE WITH EGFR, S/P Routine 04/27/2023 CBC WITH DIFFERENTIAL, B Routine 04/27/2023 from Last 3 Months Results * (ABNORMAL) CBC with Differential, Blood (04/27/2023) EXT Platelet Count 261 140 - 440 [facility] EXT Neutrophils 9.5(A) 1.7 - 7 [facility] EXT Hemoglobin 12.7 12 - 16 [facility] EXT White Blood Cell (WBC) Count 11.8(A) 4.5 - 11.0 [facility] Blood (Blood, Venous) El Aldana APRN, C.N.P. LAB BLOOD AD D-ON Performing Organization Address [facility] Co de Phone Number [facility] [address] [phone] * AST (Aspartate Aminotransferase) (04/27/2023) [facility] EXT AST 30 12 - 35 [facility] Blood (Blood, Venous) El Aldana APRN, C.N.P. LAB BLOOD AD D-ON Performing Organization Address City/[facility]/ZIP Co de Phone Number [facility] [address] [phone] * Creatinine with Estimated GFR (04/27/2023) [facility] EXT Creatinine 0.8 0.5 - 1.5 mg/dL [facility] Blood (Blood, Venous) El Aldana APRN, C.N.P. LAB BLOOD AD D-ON Performing Organization Address City/[facility]/ZIP Co de Phone Number [facility] [address] [place] [address], [facility] [phone] from Last 3 Months Additional Health Concerns Infection Onset Date Last Indicated Protective Environment 08/17/2022 3 Advance Directives For more information, please contact: [phone] Documents on File Type Date Recorded Patient Fur Polisher Expl anation Advance Directives 11/21/2021 5:50 PM POLS T/MOLST Advance Directives 07/10/2015 12:00 AM Ashly luong document. See document viewer. Care Teams Manager Hvac Relationship Specialty Start Date End Date Elsewhere, Pcp PCP - General Internal Medicine 11/20/21
--- OUTSIDE RECORDS SUMMARY | 2023-06-07 09:17 | XMS_ITS | Encounter Summary ---
Author Name Unknown Organization [facility] Address [address] [place] [address] Care Team Providers Care Drapery Supervisor Name Role Phone Elsewhere, Pcp Primary Care Provider Unavailabl e Reason for Referral * Outpatient (Routine) - Authorized Specialty Diagnoses / Procedures Referred By Navin choi Referred To Contact Ophthalmology Diagnoses High Risk Medication Procedures Ophthalmology - Plaquenil screen eConsult El Aldana APRN, C.N.P. [address] [place] [phone] [facility] Referral ID Status Reason Start Date Expiration Date V isits Requested Visits Authorized [id number] Authorized 10/16/2022 10/16/2023 1 1 Reason for Visit * Outpatient (Routine) - Closed Specialty Diagnoses / Procedures Referred By Navin choi Referred To Contact Rheumatology El Aldana APRN, C.N.P. [address] [place] [phone] [facility] Referral ID Status Reason Start Date Expiration Date Visits Re quested Visits Authorized [id number] Closed 10/07/2022 10/06/2025 1 1 Encounter Details Date Type Department Care Team (Latest Contact Info) Description 10/16/2022 3:30 PM CDT Virtual Visit Division of Rheumatology in [place], [place] [address] [place] [phone] El Aldana APRN, C.N.P. [address] [place] [address] Lupus Systemic Erythematosus (HCC) (Primary Dx); High [...] How often do you attend chur or congregation services? 1 to 4 times per year [...] and heating? Not hard at all 11/21/2021 [facility] [place] of Occupat ional Health - Occupational Stress [...] place to sleep or slept in a nursing home (including now)? No 11/21/2021 Nutrition Answer [...] Master's degree (e.g., MA, MS, Sariah, MEd, MONITORING TECH, OFE) 12/22/2018 Sex and Gender Information Value Date Recorded Sex Assigned at Female 11/21/2021 2:31 PM CDT Gender Identity Female 11/22/2018 10:59 PM CDT Sexual Orientation Straight 11/22/2018 10 :59 PM CDT documented as of this encounter Progress Notes * El Aldana APRN, C.N.P. - 10/16/2022 3:30 PM CDT SUBJECTIVE CHIEF COMPLAINT / REASON FOR VISIT The patient requested this [id number]-face phone visit for SLE, medication safety. HISTORY OF PRESENT ILLNESS Ms. Frost was last seen 11/21/2021 in follow up. She reports today that things are stable. She is open to pursuing eye testing here. She was told by her ophthalmology provider in [place] that they would not be able to [...] documented as of this encounter Care Teams Drapery Supervisor Relationship Specialty Start Date End Date Elsewhere, Pcp PCP - General Internal Medicine 11/20/21 documented as of this encounter
--- OUTSIDE RECORDS SUMMARY | 2023-06-07 09:17 | XMS_ITS | Referral Summary ---
Author Name Unknown Organization [facility] Address [address] [place] [address] Care Team Providers Care Photocopying Equipment Repairer Name Role Phone Elsewhere, Pcp Primary Care Provider Unavailabl e Source Comments Patient records contain information from all sites at [facility]. For routine questions regarding patient records, call [phone] during business hours, M-F 8:00 AM - 5:00 PM Central Time. Record requests for emergency care only can be directed to [phone] at any time.[facility] Encounters Date Type Department Care Team Description 04/28/2023 Clinical Communication Division of Rheumatology in [place], [place] [address] [place] [address] El Aldana, EVE, C.N.P. Lab Monitoring (Collected [...] How often do you attend chur or amish services? 1 to 4 times per year 11/21/2021 Do you belong to any clubs o r organizations such as jainism groups, unions, fraternal or athletic groups, or [...] and heating? Not hard at all 11/21/2021 [facility] - Occupational Stress Questionnaire Answer [...] Master's degree (e.g., MA, MS, Sariah, MEd, EVENT SPECIALIST, OFE) 12/22/2018 Sex and Gender Information [...] on file Medical Devices Implanted Type Area Tobacco Prizer Device Identifier Shelf Expiration Date Model / Serial / Lot Hardware E.G. Pins/Screws/Mushtaq s Hardware e.g. pins/screws /rods N/A: Mouth Screw Biomet 3.5 Hex Lock 4.75 X 20 - Simmons [id number] Implanted:Qty: 1 on 06/15/2016 Hardware e.g. pins/screws /rods Other/Legacy - See Implant Description BioMet Description:Device Manufactu rer - [employer] Body Location - Other. Left. Device Status Text - [id number]. Conversions - Default Historical Implant Device Implanted:06/15 (Quantity not on file) Hip Implant Right: Hip Description:Body Location - Hip R. Device Status Text - Hip Imp. Conversions - Default Historical Implant Device Implanted:06/15 (Quantity not on file) Knee Implant Left: Knee Description:Body Location - Knee L. Device Status Text - Knee Imp. Screw Biomet 3.5 Non-Lock 4.75 X 25 - Simmons [id number] Implanted:Qty: 1 on 06/15/2016 Shoulder Implant Other/Legacy - See Implant Description BioMet Description:Device Manufactu rer - Biomet Inc. Body Location - Other. Left. Device Status Text - [id number]. Procedures Procedure Name Priority Date/Time Associated Diagnosis Comments ASPARTATE AMINOTRANSFERASE (AST), S/P Routine 04/27/2023 CREATININE WITH EGFR, S/P Routine 04/27/2023 CBC WITH DIFFERENTIAL, B Routine 04/27/2023 from Last 3 Months Results * (ABNORMAL) CBC with Differential, Blood (04/27/2023) EXT Platelet Count 261 140 - 440 [facility] EXT Neutrophils 9.5(A) 1.7 - 7 [facility] EXT Hemoglobin 12.7 12 - 16 [facility] EXT White Blood Cell (WBC) Count 11.8(A) 4.5 - 11.0 [facility] Blood (Blood, Venous) El Aldana APRN, C.N.P. LAB BLOOD AD D-ON Performing Organization Address City/Special Care Hospital/ZIP Co de Phone Number [facility] [address] [place] [address], [facility] [phone] * AST (Aspartate Aminotransferase) (04/27/2023) EXT AST 30 12 - 35 [facility] Blood (Blood, Venous) El Aldana APRN, C.N.P. LAB BLOOD AD D-ON [facility] [address] [place] [address], [facility] [phone] * Creatinine with Estimated GFR (04/27/2023) EXT Creatinine 0.8 0.5 - 1.5 mg/dL [facility] Blood (Blood, Venous) El Aldana APRN, C.N.P. LAB BLOOD AD D-ON [facility] [address] [place] [address], [facility] [phone] from Last 3 Months Additional Health Concerns Infection Onset Date Last Indicated Protective Environment 08/17/2022 3 Advance Directives For more information, please contact: [phone] Documents on File Type Date Recorded Patient Wildlife Biology Technician Expl anation Advance Directives 11/21/2021 5:50 PM POLS T/MOLST Advance Directives 07/10/2015 12:00 AM Ashly luong document. See document viewer. Care Teams Photocopying Equipment Repairer Relationship Specialty Start Date End Date Elsewhere, Pcp PCP - General Internal Medicine 11/20/21
--- OUTSIDE RECORDS SUMMARY | 2023-06-07 09:17 | XMS_ITS | Continuity of Care Document ---
Author Name Unknown Organization [facility] Address [address] [place] [address] Phone Care Team Providers Care Human Resource Internship Name Role Phone Chase Snowden MD Unavailable [...] Office/Outpatient Visit,Est, Mod 2017 Office/Outpatient Visit,New, [facility] 2017 Office/Outpatient Visit,Est, Mod 2011 Postop Followup Visit Remove Lumbar Spine Lamina, 1 Seg Pa Assist Remove Lumbar Spine Lamina, 1 Seg Office/Outpatient Visit,New, Mod 2011 X-Ray Exam Lwr Spine, Min 4 Views Advance Directives Directive Yes / No Effective Date File Name No Information Encounters Encounter Description Practice Location Reason(s) For Visit Diagnoses Date Provider Providers Copied on Encounter [facility], [address] [place] [address], [id number], [place] tel:[phone] No Information 1 Sp Stone. [facility] [place], [address] [place] [address], [id number], [place]. [phone] [facility], [address] [place] [address], [id number], [place] tel:[phone] [facility] Arthrodesis status 1 No Information Office/Outpa tient Visit,Est, Mod [facility], [address] [place] [address], [id number], [place] tel:[phone] [facility] No Information No Information Referring Provider: Prakash Mccauley, [facility] [address] [place], [address]. tel:[phone] Office/Outpa tient Visit,Est, Mod [facility], [address] [place] [address], [id number], [place] tel:[phone] [facility] Arthrodesis status 0 Sp Stone. [facility] [place], Critical access hospital [address] [place] [address], [id number], [place]. tel:[phone] Referring Provider: Prakash Mccauley, [facility] [address] [place], [address]. tel:[phone] Office/Outpa tient Visit,Est, Mod [facility], [address] [place] [address], [id number], [place] tel:[phone] [facility] Kyphosis 0 Sp Stone. [facility] [place], Critical access hospital [address] [place] [address], [address], [id number], [place]. tel:[phone] Referring Provider: Prakash Mccauley, [facility] [address] [place], [address]. tel:[phone] Office/Outpa tient Visit,Est, Low [facility], [address], [place], [id number], [place] tel:[phone] [facility] Arthrodesis status Sp Stone. [facility] [place], [address] [place], [address], [id number], [place]. tel:[phone] Referring Provider: Prakash Mccauley, [facility] [address] [place], [address]. tel:[phone] Office/Outpa tient Visit,Est, Low [facility], [address], [place], [place], [id number], [place] tel:[phone] [facility] Encounter for other specified surgical aftercare Sp Stone. [facility] [place], [address] [place] [address], [address], [id number], [place]. tel:[phone] Referring Provider: Prakash Mccauley, [facility] [address] [place], [address]. tel:[phone] [facility], [address] [place] [address], [id number], [place] tel:[phone] [facility] Encounter for other specified surgical aftercare Sp Stone. [facility] [place], [address] [place] [address], [address], [id number], [place]. tel:[phone] Referring Provider: Prakash Mccauley, [facility] [address] [place], [address]. tel:[phone] [facility], [address] [place] [address], [id number], [place] tel:[phone] [facility] Encounter for other specified surgical aftercare Sp Stone. [facility] [place], [address] [place], [address], [id number], [place]. tel:[phone] Referring Provider: Prakash Mccauley, [facility] [address] [place], [address]. tel:[phone] [facility], [address], [place], [place], [id number], [place] tel:[phone] [facility] No Information Chris Meneses. [facility] [place], [address] [place] [address], [place], [address], [place]. tel:[phone] Referring Provider: Prakash Mccauley, [facility] [address] [place], [address]. tel:[phone] [facility], [address], [place], [place], [id number], [place] tel:[phone] [facility] No Information Sp Stone. [facility] [place], [address] [place] [address], [address], [id number], [place]. tel:[phone] Referring Provider: Prakash Mccauley, [facility] [address] [place], [address]. tel:[phone] Office/Outpa tient Visit,Est, Mod [facility], [address] [place] [address], [id number], [place] tel:[phone] [facility] Spinal stenosis, cervical region Sp Stone. [facility] [place], [address] [place] [address], [address], [id number], [place]. tel:[phone] Referring Provider: Prakash Mccauley, [facility] [address] [place], [address]. tel:[phone] Office/Outpa tient Visit,New, Mod [facility], [address] [place] [address], [id number], [place] tel:[phone] [facility] Postlaminect jasmine kyphosisSpin al stenosis, cervical regionArthro desis status No Information Referring Provider: Prakash Mccauley, [facility] [address] [place], [address]. tel:[phone] Office/Outpa tient Visit,Est, Mod Z [facility], [address] [facility], [place], [address], [place] tel:[phone] [facility] No Information No Information Referring Provider: Prakash Mccauley, [facility] [address] [place], [address]. tel:[phone] Z [facility], [address] [facility] [address], [place], [address], [place] tel:[phone] [facility] No Information No Information Referring Provider: Prakash Mccauley, [facility] [address] [place], [address]. tel:[phone] [facility] [place], [address] [facility] [address], [place], [address], [place] tel:[phone] [facility] No Information No Information Referring Provider: Prakash Mccauley, [facility] [address] [place], [address]. tel:[phone] Z [facility], [address] [facility] [address], [place], [address], [place] tel:[phone] [facility] LUPUS ERYTHEMATOSU SOsteopeniaA nxietyGERDCA TARACT NOS No Information Office/Outpa tient Visit,New, Mod Z [facility], [address] [facility] [address], [place], [address], [place] tel:[phone] [facility] No Information No Information Referring Provider: Prakash Mccauley, [facility] [address] [place], [address]. tel:[phone] Family History Family Member Type Diagnosis Age At Onset Mother Problem (finding) hypothyroidism Father Problem (finding) Cancer, unknown Mother Problem (finding) hypertension Problem (finding) Family history of prost ate cancer Payers Payer name Insurance type Covered alliance party ID [facility] [id number] Medicare [facility] [id number] 1 Social History Type Description Quantity Date [...]
--- OUTSIDE RECORDS SUMMARY | 2023-06-07 09:17 | XMS_ITS | Encounter Summary ---
Author Name Unknown Organization [facility] Address [address] [place] [address] Care Team Providers Care Unemployment Claims Adjudicator Name Role Phone Elsewhere, Pcp Primary Care Provider Unavailabl e Reason for Visit * Reason Onset Date Comments Lab Monitoring 02/26/2023 02/25/23 Encounter Details Date Type Department Care Team (Latest Contact Info) Description 02/26/2023 Clinical Communication Division of Rheumatology in [place], [place] [address] [place] [address] El Aldana, EVE, C.N.P. [address] [place] [address] Lab Monitoring (02/25/23) Social History Tobacco Use [...] often do you attend chur ch or taoist services? 1 to 4 times per year 11/21/2021 Do you belong to any clubs o r organizations such as restorationist groups, unions, fraternal or athletic groups, or [...] heating? Not hard at all 11/21/2021 [facility] - Occupational Stress Questionnaire [...] Master's degree (e.g., MA, MS, Sariah, MEd, POLYMERIZATION SUPERVISOR, OFE) 12/22/2018 Sex and Gender Information [...] documented as of this encounter Care Teams Unemployment Claims Adjudicator Relationship Specialty Start Date End Date Elsewhere, Pcp PCP - General Internal Medicine 11/20/21 documented as of this encounter
--- OUTSIDE RECORDS SUMMARY | 2023-06-07 09:17 | XMS_ITS | Encounter Summary ---
Author Name Unknown Organization [facility] Address [address] [place] [address] Care Team Providers Care Anesthetist Name Role Phone Elsewhere, Pcp Primary Care Provider Unavailabl e Reason for Visit * Reason Comments Med Refill Encounter Details Date Type Department Care Team (Late st Contact Info) Description 10/28/2022 Refill Division of Rheumatology in [place], [place] [address] [place] [address] El Aldana, DISPENSARY TECHNICIAN, C.N.P. [address] [place] [address] Med Refill Social History Tobacco Use Types [...] and heating? Not hard at all 11/21/2021 [facility] of Occupat ional Health - [...] Master's degree (e.g., MA, MS, Sariah, MEd, VIRTUAL REALITY SPECIALIST, OFE) 12/22/2018 Sex and Gender Information [...] Rheum visit: 10/16/22 with El Aldana APRN, BRUISE TRIMMER Future office visit: ordered, not yet scheduled [...] documented as of this encounter Care Teams Anesthetist Relationship Specialty Start Date End Date Elsewhere, Pcp PCP - General Internal Medicine 11/20/21 documented as of this encounter
--- OUTSIDE RECORDS SUMMARY | 2023-06-07 09:17 | XMS_ITS | Clinical Summary ---
Author Name Unknown Organization [facility] Address [place], [place] [address] Care Team Providers Care Automatic Line Set Up Mechanic Name Role Phone Prakash Moore MD Primary Care Provider [phone] Allergies Active Allergy Reactions Criticality Noted Date [...] daily. 0 Active MULTIVITS W-FE,OTHER MIN (PEDIATRIC OKIULFQU-DMLV-XEE ORAL) Take by mouth once daily. 0 [...] Type Department Care Team Description 06/02/[address] [address] Saran Arias DPM symtoms 05/26/2023 Telephone [facility] [address] [place] [address] Saran Arias DPM Questions (Questions on appointment) 05/25/2023 1:15 PM POLICY SERVICE COORDINATOR Office Visit [facility] [address] [place] [address] Saran Arias DPM Consult (Right great toe ulcer) 05/25/2023 Travel 05/19/2023 Telephone [facility] [address] [place] [address] Saran Arias DPM CALL BACK (bunions) from [...] T Respiratory Rate 16 05/24/2020 3:38 PM POLICY SERVICE COORDINATOR Oxygen Saturation 98% 10/29/2021 3:05 PM CDT Inhaled Oxygen Concentration - - Weight 63.5 kg (140 lb) 05/24/2020 3:38 PM POLICY SERVICE COORDINATOR Height 143.5 cm (4' 8.5) 09/21/2017 4:21 PM CDT Body Mass Index 30.83 09/21/2017 4:21 PM CDT Plan of Treatment Upcoming Encounters Date Type Department Care Team (Late st Contact Info) Description 06/08/2023 2:15 PM POLICY SERVICE COORDINATOR Office Visit [facility] [address] [place] [address] Saran Arisa DPM [address] [place] [address] 06/23/2023 1:45 PM POLICY SERVICE COORDINATOR Office Visit [facility] [address] [place] [address] Saran Arias DPM [address] [place] [address] Health Maintenance Due Date Last Done Comments [...] 01/08/2023 02/12/2011 Medical Devices Implanted Type Area Customer Service Cashier Device Identifier Shelf Expiration Date Model / Serial / Lot [id number] 1-4mm 30cc Medtronic Chips Canclls Freeze Dried Implanted:Qty: 1 on 09/23/2017 by Chase Snowden MD at [facility] Explanted:at [facility] (Quantity not on file) N/A: Spine Medtronic Spine/Ortho 09/30/2021 [id number] / [id number] / Plate Ti Occipital 50mm Implanted:Qty: 1 on 09/23/2017 by Chase Snowden MD at [facility] N/A: Spine 04.161.001 / / Description:PLATE TI OCCIPIT AL 50MM Screw Occipital Ti 4.5 X 8 Implanted:Qty: 1 on 09/23/2017 by Chase Snowden MD at [facility] N/A: Spine 04.601.108 / / Description:SCREW OCCIPITAL TI 4.5 X 8 Screw Occipital Ti 4.5 X 10 Implanted:Qty: 1 on 09/23/2017 by Chase Snowden MD at [facility] N/A: Spine 04.601.110 / / Description:SCREW OCCIPITAL TI 4.5 X 10 Screw Cerv Post 4.5x14mm Synapse Va Canncls Titnm Implanted:Qty: 1 on 09/23/2017 by Chase Snowden MD at [facility] N/A: Spine 04.614.214 / / Description:SCREW CERV POST 4.5X14MM SYNAPSE VA CANNCLS TITNM Mushtaq Pre-Bent 3.0k529cj Titnm - [id number] Implanted:Qty: 2 on 09/23/2017 by Chase Snowden MD at [facility] N/A: Spine J And J Depuy Spine 04.161.032 # / / Set Screw Cerv Axon - [id number] Implanted:Qty: 2 on 09/23/2017 by Chase Snowden MD at [facility] N/A: Spine J And J Depuy Spine 406.104# / / Screw Cerv Post 4x10mm Synapseva Canncls Titnm - [id number] Implanted:Qty: 1 on 09/23/2017 by Chase Snowden MD at [facility] N/A: Spine J And J Depuy Spine 04.614.110 # / / Screw Cerv Post 4x12mm Synapseva Canncls Titnm - [id number] Implanted:Qty: 2 on 09/23/2017 by Chase Snowden MD at [facility] N/A: Spine J And J Depuy Spine 04.614.112 # / / Screw Cerv Post 4.5x10mm Synapse Va Canncls Titnm - [id number] Implanted:Qty: 1 on 09/23/2017 by Chase Snowden MD at [facility] N/A: Spine J And J Depuy Spine 04.614.210 # / / Screw Cerv Post 4.5x26mm Synapse Va Canncls Titnm - [id number] Implanted:Qty: 1 on 09/23/2017 by Chase Snowden MD at [facility] N/A: Spine J And J Depuy Spine 04.614.226 # / / Screw Cerv Post 4.5x28mm Synapse Va Canncls Titnm - [id number] Implanted:Qty: 3 on 09/23/2017 by Chase Snowden MD at [facility] N/A: Spine J And J Depuy Spine 04.614.228 # / / Set Screw Cerv Synapse - [id number] Implanted:Qty: 9 on 09/23/2017 by Chase Snowden MD at [facility] N/A: Spine J And J Depuy Spine 04.614.508 # / / Advance Directives Latest Code Status on File Code Status Date Activated Date Inactivated Comments Full Code 09/23/2017 7:47 PM 09/28/2017 12:30 PM Care Teams Automatic Line Set Up Mechanic Relationship Specialty Start Date End Date Prakash Moore MD [address] [facility] [place] [address] PCP - General Family Practice 09/20/17
--- OUTSIDE RECORDS SUMMARY | 2023-06-07 09:18 | XMS_ITS | Encounter Summary ---
Author Name Unknown Organization [facility] Address [address] [place] [address] Care Team Providers Care Automobile Rental Agent Name Role Phone Elsewhere, Pcp Primary Care Provider Unavailabl e Reason for Visit * Reason Comments Med Refill Encounter Details Date Type Department Care Team (Late st Contact Info) Description 08/17/2022 Refill Division of Rheumatology in [place], [place] [address] [place] [phone] El Aldana, PRIVATE CLIENT ADVISOR, C.N.P. [address] [place] [address] Med Refill Social History Tobacco Use Types [...] often do you attend chur ch or caodaism services? 1 to 4 times per year 11/21/2021 Do you belong to any clubs o r organizations such as zoroastrian groups, unions, fraternal or athletic groups, or [...] and heating? Not hard at all 11/21/2021 [facility] of Occupat ional Health [...] Master's degree (e.g., MA, MS, Sariah, MEd, MERCHANDISE PICKUP/RECEIVING ASSOCIATE, OFE) 12/22/2018 Sex and Gender Information Value [...] Rheum visit: 11/21/21 with El Aldana APRN, PASTRY MIXER Future office visit: ordered, not yet scheduled Last monitoring labs/eye exam: The eye exam performed outside of [facility], dated was not able to be completed [...] documented as of this encounter Care Teams Automobile Rental Agent Relationship Specialty Start Date End Date Elsewhere, Pcp PCP - General Internal Medicine 11/20/21 documented as of this encounter
--- OUTSIDE RECORDS SUMMARY | 2023-06-07 09:18 | XMS_ITS | Encounter Summary ---
Author Name Unknown Organization [facility] Address [address] [place] [address] Care Team Providers Care Clock Smith Name Role Phone Elsewhere, Pcp Primary Care Provider Unavailabl e Reason for Visit * Reason Comments Med Refill Encounter Details Date Type Department Care Team (Late st Contact Info) Description 05/28/2022 Refill Division of Rheumatology in [place], [place] [address] [place] [phone] El Aldana, ROTARY DRUM DYER, C.N.P. [address] [place] [address] Med Refill Social History Tobacco Use Types [...] often do you attend chur ch or episcopalian services? 1 to 4 times per year [...] and heating? Not hard at all 11/21/2021 [facility]at ional Health - [...] place to sleep or slept in a snf (including now)? No 11/21/2021 Nutrition Answer Date [...] Master's degree (e.g., MA, MS, Sariah, MEd, GAS PROVER, OFE) 12/22/2018 Sex and Gender Information Value [...] inform them of reasoning for Rx denial. OR GRAIN FARMWORKER documented in this encounter Plan of Treatment Not on file documented as of this encounter Visit Diagnoses Not on filedocumented in this encounter Care Teams Clock Smith Relationship Specialty Start Date End Date Elsewhere, Pcp PCP - General Internal Medicine 11/20/21 documented as of this encounter
--- OUTSIDE RECORDS SUMMARY | 2023-06-07 09:18 | XMS_ITS | Encounter Summary ---
Author Name Unknown Organization [facility] Address [address] [place] [address] Care Team Providers Care Foil Operator Name Role Phone Elsewhere, Pcp Primary Care Provider Unavailabl e Reason for Visit * Reason Onset Date Comments Subcutaneous MTX 07/28/2022 Encounter Details Date Type Department Care Team (Latest Contact Info) Description 07/28/2022 Clinical Communication Division of Rheumatology in [place], [place] [address] [place] [address] El Aldana, CALL CENTER SUPPORT REPRESENTATIVE, C.N.P. [address] [place] [address] Subcutaneous MTX Social History Tobacco Use Types [...] often do you attend chur ch or orthodox services? 1 to 4 times per year 11/21/2021 Do you belong to any clubs o r organizations such as orthodoxy groups, unions, fraternal or athletic groups, or [...] and heating? Not hard at all 11/21/2021 [facility]at ional Health - [...] Master's degree (e.g., MA, MS, Sariah, MEd, ORACLE FUSION MIDDLEWARE DEVELOPER, OFE) 12/22/2018 Sex and Gender Information Value [...] on filedocumented in this encounter Care Teams Foil Operator Relationship Specialty Start Date End Date Elsewhere, Pcp PCP - General Internal Medicine 11/20/21 documented as of this encounter
--- OUTSIDE RECORDS SUMMARY | 2023-06-07 09:18 | XMS_ITS | Encounter Summary ---
Author Name Unknown Organization [facility] Address [address] [place] [address] Care Team Providers Care Track Laying Supervisor Name Role Phone Elsewhere, Pcp Primary Care Provider Unavailabl e Reason for Visit * Reason Comments Med Refill Encounter Details Date Type Department Care Team (Late st Contact Info) Description 10/13/2022 Refill Division of Rheumatology in [place], [place] [address] [place] [phone] El Aldana, CHILDREN'S ZOO CARETAKER, C.N.P. [address] [place] [address] Med Refill Social History Tobacco Use Types [...] often do you attend chur ch or scientologist services? 1 to 4 times per year 11/21/2021 Do you belong to any clubs o r organizations such as yarsani groups, unions, fraternal or athletic groups, or [...] hard at all 11/21/2021 [facility] - Occupational [...] place to sleep or slept in a halfway (including now)? No 11/21/2021 Nutrition Answer Date [...] Master's degree (e.g., MA, MS, Sariah, MEd, ANDROID DEVELOPER, OFE) 12/22/2018 Sex and Gender Information [...] documented as of this encounter Care Teams Track Laying Supervisor Relationship Specialty Start Date End Date Elsewhere, Pcp PCP - General Internal Medicine 11/20/21 documented as of this encounter
--- OUTSIDE RECORDS SUMMARY | 2023-06-07 09:18 | XMS_ITS | Encounter Summary ---
Author Name Unknown Organization [facility] Address [address] [place] [address] Care Team Providers Care Client Onboarding Analyst Name Role Phone Elsewhere, Pcp Primary Care Provider Unavailabl e Reason for Visit * Reason Comments Med Refill Encounter Details Date Type Department Care Team (Late st Contact Info) Description 07/22/2022 Refill Division of Rheumatology in [place], [place] [address] [place] [phone] Brittany Jauregui, EVE, C.N.P., M.S. [address] [place] [address] Med Refill Social History Tobacco Use Types [...] often do you attend chur ch or yazidism services? 1 to 4 times per year 11/21/2021 Do you belong to any clubs o r organizations such as pentecostal groups, unions, fraternal or athletic groups, or [...] Master's degree (e.g., MA, MS, Sariah, MEd, GARBAGE TRUCK HELPER, OFE) 12/22/2018 Sex and Gender Information Value Date Recorded Sex Assigned at Female 11/21/2021 2:31 PM CDT Gender Identity Female 11/22/2018 10:59 PM CDT Sexual Orientation Straight 11/22/2018 10 :59 PM CDT documented as of this encounter Miscellaneous Notes * Telephone Encounter - Lopez Bojorquez RCorazonN. - 07/27/2022 11:20 AM CDT Resent to [facility] in [place]. * Telephone Encounter - Brittany Francisco - [...] Telephone Encounter - Jade Gibbs M.S.N., Kimberli, CCorazonM.SCorazonRCorazonNCoraozn - 07/24/2022 10:14 AM CDT Prescription renewal [...] documented in this encounter Care Teams Client Onboarding Analyst Relationship Specialty Start Date End Date Elsewhere, Pcp PCP - General Internal Medicine 11/20/21 documented as of this encounter
--- OUTSIDE RECORDS SUMMARY | 2023-06-07 09:18 | XMS_ITS | Encounter Summary ---
Author Name Unknown Organization [facility] Address [address] [place] [address] Care Team Providers Care Coal Cager Name Role Phone Elsewhere, Pcp Primary Care Provider Unavailabl e Reason for Visit * Reason Onset Date Comments Lab Monitoring 06/08/2022 06/03/22 Encounter Details Date Type Department Care Team (Latest Contact Info) Description 06/08/2022 Clinical Communication Division of Rheumatology in [place], [place] [address] [place] [phone] El Aldana, EVE, C.N.P. [address] [place] [address] Lab Monitoring (06/03/22) Social History Tobacco Use [...] often do you attend chur ch or restorationist services? 1 to 4 times per year 11/21/2021 Do you belong to any clubs o r organizations such as gnosticist groups, unions, fraternal or athletic groups, or [...] all 11/21/2021 [facility]ational Stress Questionnaire [...] Master's degree (e.g., MA, MS, Sariah, MEd, PAINT LINE PRODUCTION SUPERVISOR, OFE) 12/22/2018 Sex and Gender Information Value Date Recorded Sex Assigned at Female 11/21/2021 2:31 PM CDT Gender Identity Female 11/22/2018 10:59 PM CDT Sexual Orientation Straight 11/22/2018 10 :59 PM CDT documented as of this encounter Miscellaneous Notes * Telephone Encounter - Candice Victor R.N. - 06/09/2022 7:53 AM ACTUARIAL CLERK ASSESSMENT Rheumatology monitoring labs completed at an external lab on 06/03/2022 were reviewed per Rheumatology division parameters. Labs reviewed: absolute neutrophil count, AST, creatinine, hemoglobin, leukocytes, platelets External labs were entered into Labs Tab and sent for scanning. PLAN Patient to continue with current plan of care. ARIAL CLERK documented in this encounter Plan of Treatment Not on file documented as of this encounter Procedures Procedure Name Priority Date/Time Associated Diagnosis Comments CBC WITH DIFFERENTIAL, B Routine 06/03/2022 ASPARTATE AMINOTRANSFERASE (AST), S/P Routine 06/03/2022 CREATININE WITH EGFR, S/P Routine 06/03/2022 documented in this encounter Results * (ABNORMAL) AST (Aspartate Aminotransferase) (06/03/2022) Pathologist [facility] EXT AST 70(A) 12 - 35 [facility] Blood (Blood, Venous) El Aldana APRN, C.N.P. LAB BLOOD AD D-ON Performing Organization Address [facility] Co de Phone Number [facility] [address] [place] [address] * Creatinine with Estimated GFR (06/03/2022) [facility] EXT Creatinine 0.7 0.5 - 1.5 mg/dL [facility] Blood (Blood, Venous) El Aldana APRN C.N.P. LAB BLOOD AD D-ON Performing Organization Address [facility]/ZIP Co de Phone Number [facility] [address] [place] [address] * (ABNORMAL) CBC with Differential, Blood (06/03/2022) EXT Platelet Count 400 140 - 440 [facility] EXT Neutrophils 9.4(A) 1.7 - 7 [facility] EXT Hemoglobin 11.2(A) 12 - 16 [facility] EXT White Blood Cell (WBC) Count 13.1(A) 4.5 - 11.0 [facility] Blood (Blood, Venous) Sabino Scott APRNNArmida LAB BLOOD AD D-ON [facility] [address] [place] [address] documented in this encounter Visit Diagnoses Not on filedocumented in this encounter Care Teams Coal Cager Relationship Specialty Start Date End Date Elsewhere, Pcp PCP - General Internal Medicine 11/20/21 documented as of this encounter
--- OUTSIDE RECORDS SUMMARY | 2023-06-07 09:18 | XMS_ITS | Encounter Summary ---
Author Name Unknown Organization [facility] Address [address] [place] [address] Care Team Providers Care Wire Frame Maker Name Role Phone Elsewhere, Pcp Primary Care Provider Unavailabl e Reason for Visit * Reason Comments Med Refill Encounter Details Date Type Department Care Team (Late st Contact Info) Description 07/03/2022 Refill Division of Rheumatology in [place], [place] [address] [place] [phone] El Aldana, SENIOR PHP DEVELOPER, C.N.P. [address] [place] [address] Med Refill Social History Tobacco Use Types [...] often do you attend chur ch or mandaen services? 1 to 4 times per year 11/21/2021 Do you belong to any clubs o r organizations such as restoration groups, unions, fraternal or athletic groups, or [...] and heating? Not hard at all 11/21/2021 [facility] - Occupational [...] place to sleep or slept in a longterm (including now)? No 11/21/2021 Nutrition Answer Date [...] degree (e.g., MA, MS, Sariah, MEd, SENIOR QA AUTOMATION ENGINEER, OFE) 12/22/2018 Sex and Gender Information [...] to be aware. Electronically signed by Jade Gibsb M.S.N., RCorazonNCorazon, EvieSCorazonRCorazonNCorazon at 07/03/2022 3:32 PM SERVICE ASSISTANT * Telephone Encounter - Xenia Boss R.N. - 07/03/2022 12:20 PM CST Portal message sent to patient to clarify Prednisone amount needed. Should have one month left of 5mg tablets. Will clarify if needs a flare dosing. ICE ASSISTANT documented in this encounter Plan of Treatment Not on file documented as of this encounter Visit Diagnoses Diagnosis Lupus Systemic Erythematosus (HCC) documented in this encounter Care Teams Wire Frame Maker Relationship Specialty Start Date End Date Elsewhere, Pcp PCP - General Internal Medicine 11/20/21 documented as of this encounter
--- OUTSIDE RECORDS SUMMARY | 2023-06-07 09:18 | XMS_ITS | Encounter Summary ---
Author Name Unknown Organization [facility] Address [address] [place] [address] Care Team Providers Care Prescription Eyeglass Maker Name Role Phone Elsewhere, Pcp Primary Care Provider Unavailabl e Reason for Visit * Reason Comments Med Refill Encounter Details Date Type Department Care Team (Late st Contact Info) Description 09/26/2022 Refill Division of Rheumatology in [place], [place] [address] [place] [phone] El Aldana, TOY ASSEMBLER, C.N.P. [address] [place] [address] Med Refill Social History Tobacco Use Types [...] often do you attend chur ch or jewish services? 1 to 4 times per year [...] Not hard at all 11/21/2021 [facility] Occup[facility] ional Health - Occupational Stress [...] Master's degree (e.g., MA, MS, Sariah, MEd, SOAPSTONER, OFE) 12/22/2018 Sex and Gender Information Value [...] Rheum visit: 11/21/21 with El Aldana APRN, NUT SHELLER MACHINE OPERATOR Future office visit: ordered, not yet scheduled [...] documented as of this encounter Care Teams Prescription Eyeglass Maker Relationship Specialty Start Date End Date Elsewhere, Pcp PCP - General Internal Medicine 11/20/21 documented as of this encounter
--- OUTSIDE RECORDS SUMMARY | 2023-06-07 09:18 | XMS_ITS | Encounter Summary ---
Author Name Unknown Organization [facility] Address [address] [place] [address] Care Team Providers Care Dry Cleaner Helper Name Role Phone Elsewhere, Pcp Primary Care Provider Unavailabl e Reason for Visit * Reason Onset Date Comments Pre-visit Intake 08/03/2022 Encounter Details Date Type Department Care Team (Latest Contact Info) Description 08/03/2022 1:30 PM CDT Clinical Communication Virtual Review in [place], [place] 200 [place], [place] [phone] Pre-visit Intake Social History Tobacco Use Types [...] any clubs o r organizations such as yazidism groups, unions, fraternal or athletic groups, or [...] and heating? Not hard at all 11/21/2021 [facility] Occupat ional Health - Occupational Stress [...] place to sleep or slept in a long-term (including now)? No 11/21/2021 Nutrition Answer Date [...] Master's degree (e.g., MA, MS, Sariah, MEd, SHERIFFS OFFICER, OFE) 12/22/2018 Sex and Gender Information Value Date Recorded Sex Assigned at Female 11/21/2021 2:31 PM CDT Gender Identity Female 11/22/2018 10:59 PM CDT Sexual Orientation Straight 11/22/2018 10 :59 PM CDT documented as of this encounter Plan of Treatment Not on file documented as of this encounter Visit Diagnoses Not on filedocumented in this encounter Care Teams Dry Cleaner Helper Relationship Specialty Start Date End Date Elsewhere, Pcp PCP - General Internal Medicine 11/20/21 documented as of this encounter
--- OUTSIDE RECORDS SUMMARY | 2023-06-07 09:18 | XMS_ITS | Encounter Summary ---
Author Name Unknown Organization [facility] Address [address] [place] [address] Care Team Providers Care Fisher Lampara Net Name Role Phone Elsewhere, Pcp Primary Care Provider Unavailabl e Reason for Visit * Reason Onset Date Comments Med Question 06/05/2022 ? Switch back to pills Encounter Details Date Type Department Care Team (Latest Contact Info) Description 06/05/2022 Clinical Communication Division of Rheumatology in [place], [place] [address] [place] [phone] El Aldana, EVE, C.N.P. [address] [place] [phone] Med Question (? Switch back to pills [...] any clubs o r organizations such as zoroastrianism groups, unions, fraternal or athletic groups, or [...] Master's degree (e.g., MA, MS, Sariah, MEd, PROGRAM ADMINISTRATOR, OFE) 12/22/2018 Sex and Gender Information Value Date Recorded Sex Assigned at Female 11/21/2021 2:31 PM CDT Gender Identity Female 11/22/2018 10:59 PM CDT Sexual Orientation Straight 11/22/2018 10 :59 PM CDT documented as of this encounter Miscellaneous Notes * Telephone Encounter - Mickey Ramirez R.N. - 06/17/2022 8:59 AM BOTTOM FINISHER Portal message sent, see 06/11/22 message. OM FINISHER * Telephone Encounter - Candice Victor R.N. - 06/11/2022 8:35 AM BOTTOM FINISHER Patient online portal message sent to patient. OM FINISHER * Telephone Encounter - Zaira Lund - 06/10/2022 4:43 PM BOTTOM FINISHER Pt called to schedule wanted to check on the medication change- from injectable back to pill form of methotrexate She is out of the medication and will need refills of pill form or if she is to continue on injections she just needs to know so she can get it ordered Please advise Thank you Zaira OM FINISHER documented in this encounter Plan of Treatment Not on file documented as of this encounter Visit Diagnoses Not on filedocumented in this encounter Care Teams Fisher Lampara Net Relationship Specialty Start Date End Date Elsewhere, Pcp PCP - General Internal Medicine 11/20/21 documented as of this encounter
--- OUTSIDE RECORDS SUMMARY | 2023-06-07 09:18 | XMS_ITS | Encounter Summary ---
Author Name Unknown Organization [facility] Address [address] [place] [address] Care Team Providers Care Engineering Technician Parking Name Role Phone Elsewhere, Pcp Primary Care Provider Unavailabl e Reason for Visit * Reason Comments Med Refill Encounter Details Date Type Department Care Team (Late st Contact Info) Description 07/28/2022 Refill Division of Rheumatology in [place], [place] [address] [place] [phone] El Aldana, OPERATIONS CONSULTANT, C.N.P. [address] [place] [phone] Med Refill Social History Tobacco Use Types [...] often do you attend chur ch or confucianism services? 1 to 4 times per year 11/21/2021 Do you belong to any clubs o r organizations such as lutheran groups, unions, fraternal or athletic groups, or [...] and heating? Not hard at all 11/21/2021 [facility] Occupat ional Health - Occupational [...] Master's degree (e.g., MA, MS, Sariah, MEd, BREAKER TENDER, OFE) 12/22/2018 Sex and Gender Information Value [...] Erythematosus documented in this encounter Care Teams Engineering Technician Parking Relationship Specialty Start Date End Date Elsewhere, Pcp PCP - General Internal Medicine 11/20/21 documented as of this encounter
--- OUTSIDE RECORDS SUMMARY | 2023-06-07 09:18 | XMS_ITS | Encounter Summary ---
Author Name Unknown Organization [facility] Address [address] [place] [address] Care Team Providers Care Pelletizer Operator Name Role Phone Elsewhere, Pcp Primary Care Provider Unavailabl e Encounter Details Date Type Department Care Team (Late st Contact Info) Description 08/20/2022 Clinical Communication Division of Rheumatology in [place], [place] [address] [place] [phone] El Aldana, SOLID WASTE ENGINEER, C.N.P. [address] [place] [address] Social History Tobacco Use Types Packs/Day Years [...] often do you attend chur ch or pentecostalism services? 1 to 4 times per year 11/21/2021 Do you belong to any clubs o r organizations such as shinto groups, unions, fraternal or athletic groups, or [...] and heating? Not hard at all 11/21/2021 [facility] [place] of Occupat ional Health - Occupational Stress [...] Master's degree (e.g., MA, MS, Sariah, MEd, EGG CASER, OFE) 12/22/2018 Sex and Gender Information Value [...] documented as of this encounter Care Teams Pelletizer Operator Relationship Specialty Start Date End Date Elsewhere, Pcp PCP - General Internal Medicine 11/20/21 documented as of this encounter
== END 2023-06-05 08:11 | disposition home or self-care (01) ==
LOC: AMB 06-07 09:14
PROVIDERS: PCP Family Medicine; Visit Provider Emergency Medicine
DX: R41.82 Altered mental status, unspecified (principal)
CPT/HCPCS: A0425; A0427

== ENCOUNTER 2023-06-05 08:39 | Observation (INO) | payer MEDICARE, BC, SELFPAY ==
[2023-06-05] VITALS (18 sets, daily range): BP systolic 96–166; BP diastolic 48–95; PULSE 69–89; RESP 16–18; TEMP 36.5–36.9; O2SAT 92–99; BMI 27.4; BMI 24.2
--- NOTE | 2023-06-05 08:54 | CRLHL7_ITS ---
For Patients: As a result of the Cures Act, medical imaging exams and procedure reports are released immediately into your electronic medical record. You may view this report before your referring provider. If you have questions, please contact your health care provider. INDICATION: Confusion. COMPARISON: CT head without intravenous contrast June 22, 2019. TECHNIQUE: CT head without intravenous contrast; coronal and sagittal reformats. 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 No intracranial hemorrhage. No mass lesions. No evidence of shift of the midline structures. Age-appropriate brain atrophy. The calvarium is unremarkable. Instrumentation in the cervical spine and base of the skull without any interval change. IMPRESSION: 1. No acute intracranial pathology. 2. 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 Please note that all CT scans at this facility use dose modulation, iterative reconstruction, and/or weight-based dosing when appropriate to reduce radiation dose to as low as reasonably achievable. Dictated by Candice Chavez MD @ 06/05/2023 10:10:21 AM (Electronically Signed)
--- NOTE | 2023-06-05 08:54 | CRLHL7_ITS ---
For Patients: As a result of the Cures Act, medical imaging exams and procedure reports are released immediately into your electronic medical record. You may view this report before your referring provider. If you have questions, please contact your health care provider. INDICATION: Abdominal pain; confusion. COMPARISON: CT abdomen and pelvis with intravenous contrast 03/23/2023. TECHNIQUE: CT abdomen and pelvis with intravenous contrast; coronal and sagittal reformats. FINDINGS: No abnormal intra pulmonary nodular densities through the lung bases. No evidence of pleural effusion. Platelike atelectasis lower lobe left lung; stable when compared to 03/23/2023. No focal hepatic or splenic pathology. No pancreatic pathology. Status post cholecystectomy. No adrenal pathology. No kidney stones or obstructive uropathy. No retroperitoneal lymphadenopathy. No evidence of abdominal or pelvic ascites. No pneumoperitoneum or intestinal obstruction. Diverticulosis sigmoid colon without any CT evidence of diverticulitis or abscess. 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 Instrumentation lower lumbar spine. Impression: 1. No acute pathology either in the abdomen and pelvis. 2. Complete resolution of the small bowel edema and thickening when compared to the previous study. 3. 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 4. Status post cholecystectomy. 5. Instrumentation lumbosacral spine. Please note that all CT scans at this facility use dose modulation, iterative reconstruction, and/or weight-based dosing when appropriate to reduce radiation dose to as low as reasonably achievable. Dictated by Candice Chavez MD @ 06/05/2023 10:06:07 AM (Electronically Signed)
--- NOTE | 2023-06-05 08:58 | ED_ITS ---
HPI - General Adult General Date Seen: 06/05/23 Chief complaint: Weakness Stated complaint: weakness Time Seen by Provider: 06/05/23 08:54 History of Present Illness HPI narrative: This is an 78-year-old female who is brought to the ER this morning by EMS. History is limited but from the patient because she is confused and not oriented to date or month. She is not a good historian at this point. History is obtained predominantly from paramedics and supplemented from the patient. She has a history of rheumatoid arthritis and lupus, as well as AFib on warfarin. She is a resident of the [facility]. She normally cares for herself. Apparently staff there called 911 this morning because she just was not acting like herself. She seemed confused. EMS notes that she has periorbital edema which is baseline for her. They also noted significant redness of both of her lower extremities, left more than the right which is apparently somewhat chronic but worse than normal. She also has a bunion on her right foot with a bandage on it. The patient has no complaints. Blood sugar was normal. Blood pressure was normal. EKG shows a wide complex QRS per EMS. EMS felt like her respirations might be somewhat labored that she might be in pain, but she denies any problems. According to the patient should she does not really know what is going on today. She says she feels fine. No pain. No nausea. No headache. No chest pain. N o trouble breathing. No abdominal pain (however she does endorse left-sided tenderness when I palpate). She is oriented to person and place but does not know what day or month it is. When I remind her that it is May she does say ?0 yes. It is May. When we talk about her medications she knows she is on prednisone and she noted that she used to be on 7 mg of prednisone but somewhat increased her to 10 mg of prednisone around the time of . She does not know if she takes it in the morning or the evening. We do not think she has had any of her meds today. When I mention the redness of her left leg she does recall she has had cellulitis in the past. She can not remember when. She does not really know if the redness of her leg is chronic or new. Maybe it is new. She is not sure when it became more red than normal. In review of her medical record I see that she was seen in the primary care clinic, Dr. Escudero on 05/13. According to that visit she was having drainage from a right foot abscess. 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 She had already finished a course of doxycycline at that time. Dr. Emily peralta put her back on doxycycline. According to primary care note from 04/27, patient has a history of paroxysmal AFib. She is anticoagulated. Apparently she was cardioverted while in the hospital in March. According to notes from the clinic family made the decision to focus on keeping the patient comfortable if she goes in and out of AFib. Per that visit note, ? She was is a patient at the [facility] from 03/23/2023 through 03/31/2023. Diagnoses include upper GI bleed, myocardial infarction, atrial fibrillation, hypokalemia. She was doing so poorly and not tolerating fluids and transfusions she was not expected to survive without intensive and possibly surgical measures and a hospital transfer. Family elected not to do this and she was basically sent to a nursing facility on hospice. She has made a miraculous recovery and is doing quite a bit better. No further bleeding issues. Initial INR during hospitalization was 6 although it had been closer to 3 1 month earlier. Coumadin was held and vitamin K was given. On discharge she was sent home back on anticoagulation for indications of atrial fibrillation, history of DVT and PE. Hospital discharge summary reviewed. She is here with her daughter Giselle today. Have questions about how things progress going forward and if she needs to remain at this facility. She still quite weak and needing help with transfers and getting out of chairs so it seems reasonable for now. From visit 04/27 Assessment/plan: 1. GI bleed. Stabilized. Lows hemoglobin and the hospital was 6.8. Up to 11.1 at discharge. Discussed the pros and cons of remaining on anticoagulation and ultimately she is more comfortable staying on this given risks of clots with other conditions. We do not really have a good reason why her initial INR was 6 but we will check more frequently going forward given the recent issues. Plan INR checks every 2 weeks at least. Will check INR before she leaves. 2. Atrial fibrillation/DVT/PE history. No change in plan going forward all low we will check INR every 2 weeks. There seems to be discrepancy between discharge summary Coumadin dosing and reported dosing when the nurses managed INR 3 weeks ago. Also it was not communicated that she had been hospitalized for a GI bleed so she was continued on the reported 3 mg daily with repeat INR planned for 1 month. INR was about 3 when it was checked 3 weeks ago. No change in rate slowing medications going forward. 3. Hypokalemia. She clearly was not eating and doing very well while hospitalized which likely explains the low potassium. I think it is reasonable to decrease her potassium chloride back to the previous 10 mEq p.o. b.i.d.. An order will be sent to the facility. 4. Left thigh discomfort. Will check electrolytes given recent electrolyte issues. Offered ultrasound but since she is already on anticoagulation I am not sure with that would change and she agrees so we did not do an ultrasound. 5. Follow-up can be monthly if she still has questions or we can go back to seeing her yearly if things really stabilize. 6. Level of care. I think this can be assessed every few days or weekly at her facility which is likely with they are already doing. She is no longer on hospice which I think is appropriate given how well she is doing. 7. Lupus. Likely the reason she is on long-term prednisone of 7 mg daily. In the hospital this was increased to 10 mg b.i.d. and by discharge it was down to 10 mg daily. Increase likely was for stress dosing. Will continue the 10 mg daily for now and if things are stable we can go down to 9 mg in 1 month then 8 mg for 1 month then 7 mg going forward. Related Data Home Medications Medication Instructions Recorded Confirmed melatonin 3 mg capsule 3 mg PO HS PRN 01/13/22 06/05/23 hyoscyamine sulfate 0.125 mg 0.125 mg PO Q4H PRN 05/13/23 06/05/23 sublingual tablet lorazepam 0.5 mg tablet 0.5 mg PO Q4H anxiety 05/13/23 06/05/23 omeprazole 20 mg capsule,delayed 20 mg PO DAILY 05/13/23 06/05/23 release potassium chloride 10 mEq 20 meq PO BID 05/13/23 06/05/23 capsule,extended release prednisone 10 mg tablet 10 mg PO DAILY 05/13/23 06/05/23 levothyroxine 25 mcg tablet 25 mcg PO DAILY 06/05/23 06/05/23 loratadine 10 mg tablet 10 mg PO DAILY allergic symptoms 06/05/23 06/05/23 magnesium oxide 400 mg PO DAILY@12 06/05/23 06/05/23 mirtazapine 7.5 mg tablet 7.5 mg PO HS 06/05/23 06/05/23 warfarin 3 mg tablet 1.5 mg PO DAILY 06/05/23 06/05/23 Previous Rx's Medication Instructions Recorded estradiol 0.01% (0.1 mg/gram) 0.5 g vaginal QWEEK #42.5 grams 01/30/22 vaginal cream bupropion HCl 150 mg 24 hr tablet, 150 mg PO DAILY #90 tabs 02/25/23 extended release fluconazole 150 mg tablet 150 mg PO QWEEK #12 tabs 02/25/23 furosemide 40 mg tablet 40 mg PO DAILY #90 tabs 02/25/23 losartan 25 mg tablet 25 mg PO DAILY #90 tabs 02/25/23 metoprolol succinate 25 mg 25 mg PO DAILY #90 tabs 02/25/23 tablet,extended release 24 hr hydroxychloroquine 200 mg tablet 200 mg PO .Daily At 12:00PM #90 04/19/23 tabs hydrocodone 5 mg-acetaminophen 325 1 tab PO QDAY pain 30 days #30 tabs 05/05/23 mg tablet gabapentin 400 mg capsule 1,200 mg (3 x 400 mg) PO BID #540 05/14/23 caps Allergies Allergy/AdvReac Type Severity Reaction Status Date / Time amitriptyline Allergy Severe disorientat Verified 06/05/23 09:34 ion penicillin V Allergy Severe upset Verified 06/05/23 09:34 stomach and rash perphenazine Allergy Severe disorientat Verified 06/05/23 09:34 ion adhesive Allergy Unknown Unknown Verified 06/05/23 09:34 amoxicillin AdvReac Intermediate Diarrhea Verified 06/05/23 09:34 Tricyclic antidepressant Allergy Severe disorientat Uncoded 06/05/23 09:34 ion Bee venom Allergy Mild swells and Uncoded 06/05/23 09:34 area turns red Sulfa drugs Allergy Unknown Unknown Uncoded 06/05/23 09:34 Clavulanate AdvReac Intermediate Diarrhea Uncoded 06/05/23 09:34 [facility] Medical History Left leg cellulitis ?L03.116 - Cellulitis of left lower limb (ICD-10) Systemic lupus erythematosus ?M32.9 - Systemic lupus erythematosus, unspecified (ICD-10) Anemia ?D64.9 - Anemia, unspecified (ICD-10) Psoriasis ?L40.9 - Psoriasis, unspecified (ICD-10) Anemia ?D64.9 - Anemia, unspecified (ICD-10) Yeast dermatitis ?B37.2 - Candidiasis of skin and nail (ICD-10) Environmental allergies ?Z91.09 - Other allergy status, other than to drugs and biological substances (ICD-10) Osteoarthritis of left hip ?M16.12 - Unilateral primary osteoarthritis, left hip (ICD-10) Osteoarthritis of right knee ?M17.11 - Unilateral primary osteoarthritis, right knee (ICD-10) Osteoarthritis of right shoulder ?M19.011 - Primary osteoarthritis, right shoulder (ICD-10) Urethral caruncle ?N36.2 - Urethral caruncle (ICD-10) Weakness ?R53.1 - Weakness (ICD-10) Urinary tract infection ?N39.0 - Urinary tract infection, site not specified (ICD-10) Unsteady gait ?R26.81 - Unsteadiness on feet (ICD-10) Tubular adenoma ?D36.9 - Benign neoplasm, unspecified site (ICD-10) Spinal stenosis ?M48.00 - Spinal stenosis, site unspecified (ICD-10) 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 (ICD-10) Seasonal allergic rhinitis (01/27/12) ?J30.2 - Other seasonal allergic rhinitis (ICD-10) Scoliosis (01/27/12) ?M41.9 - Scoliosis, unspecified (ICD-10) Right shoulder pain ?M25.511 - Pain in right shoulder (ICD-10) Pyelonephritis ?N12 - Tubulo-interstitial nephritis, not specified as acute or chronic (ICD- 10) Positive colorectal cancer screening using DNA-based stool test ?R19.5 - Other fecal abnormalities (ICD-10) Physician Orders for Life-Sustaining Treatment (09/28/17) ?Z78.9 - Other specified health status (ICD-10) Physical deconditioning ?R53.81 - Other malaise (ICD-10) Physical debility ?R53.81 - Other malaise (ICD-10) Peripheral edema (05/12/10) ?R60.9 - Edema, unspecified (ICD-10) Osteopenia (05/26/11) ?M85.80 - Other specified disorders of bone density and structure, unspecified site (ICD-10) Nonspecific colitis ?K52.9 - Noninfective gastroenteritis and colitis, unspecified (ICD-10) Long-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 - Immunodeficiency due to drugs (ICD-10) ?T38.0X5A - Adverse effect of glucocorticoids and synthetic analogues, initial encounter (ICD-10) ?Z79.52 - intermediate accountant (current) use of systemic steroids (ICD-10) Hypokalemia ?E87.6 - Hypokalemia (ICD-10) Hypertension (08/16/12) ?I10 - Essential (primary) hypertension (ICD-10) Hyperlipidemia ?E78.5 - Hyperlipidemia, unspecified (ICD-10) High C-reactive protein ?R79.82 - Elevated C-reactive protein (CRP) (ICD-10) Health care directive on file (07/05/15) ?Z78.9 - Other specified health status (ICD-10) Gastroesophageal reflux disease (04/11/10) ?K21.9 - Gastro-esophageal reflux disease without esophagitis (ICD-10) Dilated cardiomyopathy (05/12/10) ?I42.0 - Dilated cardiomyopathy (ICD-10) Dilated bile duct ?K83.8 - Other specified diseases of biliary tract (ICD-10) Depression (08/16/12) ?F32.A - Depression, unspecified (ICD-10) Constipation ?K59.00 - Constipation, unspecified (ICD-10) Colitis ?K52.9 - Noninfective gastroenteritis and colitis, unspecified (ICD-10) Chronic pain syndrome ?G89.4 - Chronic pain syndrome (ICD-10) Chronic pain ?G89.29 - Other chronic pain (ICD-10) Cellulitis ?L03.90 - Cellulitis, unspecified (ICD-10) Atrial fibrillation with rapid ventricular response ?I48.91 - Unspecified atrial fibrillation (ICD-10) Anxiety (04/11/10) ?F41.9 - Anxiety disorder, unspecified (ICD-10) Anticoagulation goal of INR 2 to 3 ?Z51.81 - Encounter for therapeutic drug level monitoring (ICD-10) ?Z79.01 - intermediate accountant (current) use of anticoagulants (ICD-10) Anemia of chronic disease ?D63.8 - Anemia in other chronic diseases classified elsewhere (ICD-10) Abnormal liver function tests ?R79.89 - Other specified abnormal findings of blood chemistry (ICD-10) Hypothyroidism ?E03.9 - Hypothyroidism, unspecified (ICD-10) Long-term (current) use of anticoagulants, INR goal 2.0-3.0 ?Z79.01 - detention (current) use of anticoagulants (ICD-10) Knee osteoarthritis ?M17.10 - Unilateral primary osteoarthritis, unspecified knee (ICD-10) POLST (Physician Orders for Life-Sustaining Treatment) ?Z78.9 - Other specified health status (ICD-10) Irritation of right ear ?H93.8X1 - Other specified disorders of right ear (ICD-10) History of pulmonary embolism (2017) ?Z86.711 - Personal history of pulmonary embolism (ICD-10) History of peptic ulcer ?Z87.11 - Personal history of peptic ulcer disease (ICD-10) History of deep vein thrombosis (DVT) of lower extremity (2017) ?Z86.718 - Personal history of other venous thrombosis and embolism (ICD-10) Head injury with loss of consciousness ?S06.9X9A - Unspecified intracranial injury with loss of consciousness of unspecified duration, initial encounter (ICD-10) Surgical History S/P foot surgery, right (08/28/14) ?Z98.890 - Other specified postprocedural states (ICD-10) 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) ?Z96.619 - Presence of unspecified artificial shoulder joint (ICD-10) Status post lumbar spinal fusion (04/11/10) ?Z98.1 - Arthrodesis status (ICD-10) Status post cervical spinal arthrodesis (09/2017) ?Z98.1 - Arthrodesis status (ICD-10) History of total hip replacement (05/12/10) ?Z96.649 - Presence of unspecified artificial hip joint (ICD-10) History of left knee replacement (05/12/10) ?Z96.652 - Presence of left artificial knee joint (ICD-10) History of hysterectomy (04/11/10) ?Z90.710 - Acquired absence of both cervix and uterus (ICD-10) History of colonoscopy (05/18/19) ?Z98.890 - Other specified postprocedural states (ICD-10) History of cholecystectomy (05/12/10) ?Z90.49 - Acquired absence of other specified parts of digestive tract (ICD- 10) Family History Brother Coronary artery disease Father Cancer Social History Narrative: Patient lives at [facility]. Code status is DNR. Healthcare power of assistant prosecuting attorney is her daughter Giselle from [place]. She quit smoking many years ago. Has been chewing nicotine gum since then. She does not drink alcohol What is your current living situation?: I presently have a place to live Problems where you live: no known problems Problems where you live details: no known problems In the past 12 months, utilities in danger of being shut off: no In past 12 months, lack of transportation kept you from medical appts, meetings, work, or getting things needed for daily living: no In the past 12 mos, have been you worried that your food would run out before you had money to buy more?: never true In the past 12 mos, the food you bought just didn't last and you didn't have money to buy more?: never true Highest level of school completed/degree received: 12th grade, no diploma Smoking Status: Never smoker Second hand tobacco smoke exposure: No How often do you have a drink containing alcohol: never How often do you have six or more drinks on one occasion: Never AUDIT-C Alcohol total score: 0 Non-prescribed substance use: denies use Caffeine: Yes (4-5 cups daily) How often does anyone, including family, friends and others, physically hurt you : never How often does anyone, including family, friends and others, insult or talk down to you: never How often does anyone, including family, friends and others, threaten you with harm: never How often does anyone, including family, friends and others, scream or curse at you: never Little interest or pleasure in doing things: several days Feeling down, depressed, or hopeless: more than half the days service: No Exam Narrative: Exam Narrative: Constitutional: Appears well-developed and well-nourished. Somewhat kyphotic. Has joint degeneration consistent with RA. Periorbital edema consistent with chronic steroids HENT: Head: Atraumatic. Nose: Nose normal. Mouth/Throat: Oral mucosa is clear but mucous membranes are dry. no trismus. Visualized upper portion of Pharynx normal. Tonsils symmetric. No tonsillar enlargement, erythema, or exudate. No stridor. Phonation normal. Eyes: Periorbital edema especially on the lower lids, apparently is chronic. Conjunctivae normal. EOM normal. Pupils equal, round, and reactive to light. No scleral icterus. Neck: Normal range of motion. Neck supple. No tracheal deviation present. No JVD Cardiovascular: Normal rate, regular rhythm. No gallop. No friction rub. No murmur heard. Symmetric radial and PT artery pulses Pulmonary/Chest: Effort normal. No stridor. No respiratory distress. No wheezes. No rales. No rhonchi . No tenderness. Abdominal: Soft. Bowel sounds normal. No distension. No mass. Left upper and lower tenderness. No rebound. No guarding. Musculoskeletal: Chronic appearing deformities of the joints of her fingers and wrist consistent with RA. No acute deformity or tenderness. RUE: Normal range of motion. No tenderness. No deformity LUE: Normal range of motion. No tenderness. No deformity Chronic deformities of her bilateral feet and toes consistent with RA. RLE: She does have a bunion on the MTP joint of her right foot. There is a bandage in place over the bunion. Bandage removed. There is some superficial skin breakdown ulcer on the bunion but really no surrounding erythema or purulent drainage to suggest an active infection. Normal range of motion. No tenderness. No deformity LLE: Normal range of motion. No tenderness. No deformity Patient has redness and warmth affecting both of her shins and calves. On the right side there is redness and warmth roughly from just distal to the knee down to just proximal to the ankle. On the left side the redness extends from the ankle all the way proximally to the mid thigh. Left lower extremity is somewhat more red and more warm to the touch than the right. Based on report, we suspect that she probably has some chronic bilateral redness but of the left-sided redness is probably new, indicative of cellulitis. Lymph: No cervical adenopathy. Neurological: Alert and oriented to person, place, but not date. Somewhat confused but pleasant. At times can give pretty detailed history and at times really cannot provide reliable information. Normal strength, no focal deficit. CN II-VII intact. No sensory deficit. GCS eye subscore is 4. GCS verbal subscore is 5. GCS motor subscore is 6. Normal coordination Skin: Other than erythema on her lower extremities, above, Skin is warm and dry. No rash noted. No pallor. Normal capillary refill. Psychiatric: Normal mood. Normal affect. Polite Const: Vital Signs, click to edit/add: Vital Signs - 24 hr 06/05/23 08:55 06/05/23 09:47 06/05/23 09:52 Temperature 97.7 F Pulse Rate 88 87 Pulse Rate [Pulse Oximeter] 86 Respiratory Rate 18 Blood Pressure 136/62 Blood Pressure [Ri ght Upper Arm] 166/84 H Pulse Oximetry 99 95 92 Oxygen Delivery Me thod Room Air 06/05/23 09:53 06/05/23 10:00 06/05/23 10:02 Temperature Pulse Rate 88 89 88 Pulse Rate [Pulse Oximeter] Respiratory Rate Blood Pressure 148/48 H Blood Pressure [Ri ght Upper Arm] Pulse Oximetry 93 97 94 Oxygen Delivery Me thod 06/05/23 10:32 06/05/23 11:02 06/05/23 11:33 Temperature Pulse Rate Pulse Rate [Pulse Oximeter] Respiratory Rate Blood Pressure 107/52 L 103/54 L 119/53 L Blood Pressure [Ri ght Upper Arm] Pulse Oximetry Oxygen Delivery Me thod Course Vital Signs Vital signs: Initial Vital Signs Temperature 97.7 F 06/05/23 08:55 Temperature Source Temporal Artery Scan 06/05/23 08:55 Pulse Rate 86 06/05/23 08:55 Respiratory Rate 18 06/05/23 08:55 Blood Pressure 166/84 H 06/05/23 08:55 Blood Pressure Mean 111 H 06/05/23 08:55 Pulse Oximetry 99 06/05/23 08:55 Oxygen Delivery Method Room Air 06/05/23 08:55 Vital Signs Temperature 97.7 F 06/05/23 08:55 Pulse Rate 86 06/05/23 08:55 Respiratory Rate 18 06/05/23 08:55 Blood Pressure 166/84 H 06/05/23 08:55 Pulse Oximetry 99 06/05/23 08:55 Oxygen Delivery Method Room Air 06/05/23 08:55 Temperature 98.5 F 06/05/23 12:28 Pulse Rate 82 06/05/23 12:28 Respiratory Rate 16 06/05/23 12:28 Blood Pressure 155/95 H 06/05/23 12:28 Pulse Oximetry 95 06/05/23 12:28 Oxygen Delivery Method Room Air 06/05/23 12:28 Medications Administered Medications: Discontinued Medications Generic Name Dose Route Start Last Admin Trade Name Freq PRN Reason Stop Dose Admin Acetaminophen 1,000 mg 06/05/23 10:06 06/05/23 10:17 Acetaminophen 500 Mg Tablet PO 06/05/23 10:07 1,000 mg ONCE ONE Administration Hydrocortisone Sodium Succinate 100 mg 06/05/23 08:54 06/05/23 09:52 Hydrocortisone Sod Succinate 50 Mg/Ml Inj IVP 06/05/23 08:55 100 mg ONCE ONE Administration Ceftriaxone Sodium 1 gm/ 100 mls @ 200 mls/hr 06/05/23 09:15 06/05/23 10:25 Sodium Chloride IVPB 06/05/23 09:44 Infused ONCE ONE Infusion Vancomycin HCl 1,500 mg/ 515 mls @ 257.5 mls/hr 06/05/23 10:00 06/05/23 13:21 Sodium Chloride IVPB 06/05/23 11:59 Infused ONCE ONE Infusion Protocol Lactated Ringer's 1,000 ml 06/05/23 08:54 06/05/23 09:52 Lactated Ringers 1000 Ml IV 06/05/23 08:55 1,000 ml ONCE ONE Administration Lorazepam 0.5 mg 06/05/23 10:06 06/05/23 10:17 Lorazepam 0.5 Mg Tablet PO 0.5 mg Q4H PRN Administration Medical Decision Making MDM Narrative Medical decision making narrative: This is a pleasant, but medically complex 78-year-old female brought to the ER today from her assisted living for evaluation of ?not acting right? and being ?ill. ?. The patient does have signs of nonfocal confusion. He has sounds like she is normally pretty alert and oriented but today does not even know what month it is. No other focal deficits to suggest acute stroke. She is on warfarin (for history of AFib and apparently history of DVT/PE). No signs of head trauma boot we did obtain head CT to look for possible intracranial hemorrhage. CT show no acute findings. INR a couple of days ago was slightly supratherapeutic at 4.8. Today INR is now slightly subtherapeutic at 1.85. Evaluation for other causes of confusion is undertaken. Blood gas shows a normal pCO2. Actually a respiratory alkalosis, no signs of hypercarbia. Metabolic profile shows normal sodium, normal bicarb, normal anion gap. Normal kidney function. She does have mild hypokalemia (but has had similar hypokalemia (similar to prior hospitalizations, on potassium supplements at home)-likely not contributing to current mental status change. Suspicion is that the patient is probably infected with sepsis and delirium causing her altered mental status. Clinical exam shows bilateral lower extremity redness, which is apparently chronic but fairly significant redness on her left lower extremity extending all the way from her ankle at the distal end up to her mid/medial thigh on the proximal in. Suspicion is for probable cellulitis there. I do not detect any palpable abscess or any crepitus or gas in the soft tissue to suggest a necrotizing infection. She does have a history of DVT/PE, but is on Coumadin and there is really no swelling, just redness. Nonetheless, I have ordered a left lower extremity DVT ultrasound to rule out DVT in that leg, after discussion with hospitalist. Result pending at the time the patient was accepted for admission, ultimately negative. No signs of acute limb ischemia. She is treated with antibiotics for possible cellulitis-Rocephin and vancomycin. In review of her records I see that she has been on doxycycline recently due to an infection in her right foot. Today cellulitis is in the left leg. When I evaluate her right foot I see that she has signs of a healing bunion or gouty tophus, but really no signs of redness or purulent drainage in the right foot or around that toe to suggest an active infection in the right foot today. She is not coughing. Lungs are clear. COVID, influenza, RSV PCR is negative. Lab Data Labs: Lab Results 06/05/23 06/05/23 Range/Units 08:55 09:10 WBC 8.56 (4.50-11.00) K/uL RBC 4.40 (4.00-5.20) m/uL Hgb 12.7 (12.0-16.0) gm/dL Hct 41.5 (33.0-51.0) % MCV 94 (80-100) fL MCH 29 (26-34) pg MCHC 31 L (32-36) gm/dL RDW Coeff of Rolo 15.8 H (11.5-15.5) % Plt Count 346 (140-440) K/uL Neut % (Auto) 61.6 (42.0-72.0) % Lymph % (Auto) 23.6 (20-44) % [place] % (Auto) 11.7 H (0.0-11.0) % Eos % (Auto) 2.5 (0.0-7.0) % Baso % (Auto) 0.5 (0.0-3.0) % Neut # (Auto) 5.28 (1.7-7.0) K/uL Lymph # (Auto) 2.02 (0.90-2.90) K/uL [place] # (Auto) 1.00 H (0.00-0.90) K/UL Eos # (Auto) 0.21 (0.00-0.50) K/uL Baso # (Auto) 0.04 (0.00-0.30) K/uL Abs Immat Gran (auto) 0.01 (0.00-0.30) K/uL Imm/Tot Granulo (auto) 0.1 % INR 1.85 H (0.91-1.10) VBG pH 7.465 H (7.32-7.43) VBG pCO2 40 (40-50) mmHG VBG pO2 38.5 (25-47) mmHG VBG HCO3 29 H (21-28) mmol/L Sodium 142 (135-149) mmol/L Potassium 3.4 L (3.6-5.1) mmol/L Chloride 105 (96-114) mmol/L Carbon Dioxide 26 (20-32) mmol/L Anion Gap 11 (7-15) mEq/L BUN 21 (7-30) mg/dL Creatinine 0.8 (0.5-1.5) mg/dL Estimated Creat Clear 33.86 Estimated GFR 74 ml/min Glucose 77 (60-115) mg/dL Lactate 1.3 (0.5-1.9) mmol/L Calcium 9.2 (8.4-10.6) mg/dL SARS-CoV-2 (PCR) Negative SARS-CoV-2 (Negative) Influenza Type A (PCR) Negative PCR FLU A (Negative) Influenza Type B (PCR) Negative PCR FLU B (Negative) RSV (PCR) Negative PCR RSV (Negative) Imaging Data CT scan - abdomen: Attestation: I have reviewed the pertinent imaging results. Radiologist's impression: Impression: 1. No acute pathology either in the abdomen and pelvis. 2. Complete resolution of the small bowel edema and thickening when compared to the previous study. 3. 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 4. Status post cholecystectomy. 5. Instrumentation lumbosacral spine. CT scan - head: Attestation: I have reviewed the pertinent imaging results. Radiologist's impression: IMPRESSION: 1. No acute intracranial pathology. 2. 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 US venous, left: Attestation: I have reviewed the pertinent imaging results. Radiologist's impression: IMPRESSION: No left lower extremity DVT. ECG Data Attestation: I personally reviewed and interpreted this ECG as follows: Interpretation: Normal sinus rhythm rate 83 MT 136 QRS axis left bundle branch block pattern. Normal axis. ST segment/T wave: Discordant changes in ST segment in V1, V2, V3 consistent with QRS. No STEMI by Sgarbossa QTc: 458 Discharge Plan Discharge Patient Disposition: Admitted As Inpatient
--- OUTSIDE RECORDS SUMMARY | 2023-06-05 09:20 | XMS_ITS | Continuity of Care Document ---
Author Name Unknown Organization [facility] Address [address] [place] [address] Phone Care Team Providers Care Rn Call Center Name Role Phone Chase Snowden MD Unavailable [...] Visit,Est, Mod 2017 [place] [facility] [place] Visit,Est, Mod 2011 Postop Followup Visit Remove Lumbar Spine Lamina, 1 Seg Pa Assist Remove Lumbar Spine Lamina, 1 Seg Office/Outpatient Visit,New, Mod 2011 X-Ray Exam Lwr Spine, Min 4 Views Advance Directives Directive Yes / No Effective Date File Name No Information Encounters Encounter Description Practice Location Reason(s) For Visit Diagnoses Date Provider Providers Copied on Encounter [facility], [address] [place] [address], [id number], [place] tel:[phone] No Information 1 Sp Stone. [facility] [place], [address] [place] [address], [id number], [place]. [phone] [facility], [address] [place] [address], [id number], [place] tel:[phone] [facility] Arthrodesis status 1 No Information Office/Outpa tient Visit,Est, Mod [facility], [address] [place] [address], [id number], [place] tel:[phone] [facility] No Information No Information Referring Provider: Prakash Mccauley, [facility] [address] [place], [address]. tel:[phone] Office/Outpa tient Visit,Est, Mod [facility], [address] [place] [address], [id number], [place] tel:[phone] [facility] Arthrodesis status 0 Sp Stone. [facility] [place], [facility], [facility] [address] [place] [address], [id number], [place]. tel:[phone] Referring Provider: Prakash Mccauley, [facility] [address] [place], [address]. tel:[phone] Office/Outpa tient Visit,Est, Mod [facility], [address] [place] [address], [id number], [place] tel:[phone] [facility] Kyphosis 0 Sp Stone. [facility], [facility] [place], [facility], [facility] [address] [place] [address], [address], [id number], [place]. tel:[phone] Referring Provider: Prakash Mccauley, [facility] [address] [place], [address]. tel:[phone] Office/Outpa tient Visit,Est, Low [facility], [address], [place], [id number], [place] tel:[phone] [facility] Arthrodesis status Sp Stone. [facility] [place], [address] [place], [address], [id number], [place]. tel:[phone] Referring Provider: Prakash Mccauley, [facility] [address] [place], [address]. tel:[phone] Office/Outpa tient Visit,Est, Low [facility], [address], [place], [place], [id number], [place] tel:[phone] [facility] Encounter for other specified surgical aftercare Sp Stone. [facility] [place], [address] [place] [address], [address], [id number], [place]. tel:[phone] Referring Provider: Prakash Mccauley, [facility] [address] [place], [address]. tel:[phone] [facility], [address] [place] [address], [id number], [place] tel:[phone] [facility] Encounter for other specified surgical aftercare Sp Stone. [facility] [place], [address] [place] [address], [address], [id number], [place]. tel:[phone] Referring Provider: Prakash Mccauley, [facility] [address] [place], [address]. tel:[phone] [facility], [address] [place] [address], [id number], [place] tel:[phone] [facility] Encounter for other specified surgical aftercare Sp Stone. [facility] [place], [address] [place], [address], [id number], [place]. tel:[phone] Referring Provider: Prakash Mccauley, [facility] [address] [place], [address]. tel:[phone] [facility], [address], [place], [place], [id number], [place] tel:[phone] [facility] No Information Chris Meneses. [facility] [place], [address] [place] [address], [place], [address], [place]. tel:[phone] Referring Provider: Prakash Mccauley, [facility] [address] [place], [address]. tel:[phone] [facility], [address], [place], [place], [id number], [place] tel:[phone] [facility] No Information Sp Stone. [facility], [facility] [place], [address] [place] [address], [address], [id number], [place]. tel:[phone] Referring Provider: Prakash Mccauley, [facility] [address] [place], [address]. tel:[phone] Office/Outpa tient Visit,Est, Mod [facility], [address] [place] [address], [id number], [place] tel:[phone] [facility] Spinal stenosis, cervical region Sp Stone. [facility] [place], [address] [place] [address], [address], [id number], [place]. tel:[phone] Referring Provider: Prakash Mccauley, [facility] [address] [place], [address]. tel:[phone] Office/Outpa tient Visit,New, Mod [facility], [address] [place] [address], [id number], [place] tel:[phone] [facility] Postlaminect jasmine kyphosisSpin al stenosis, cervical regionArthro desis status No Information Referring Provider: Prakash Mccauley, [facility] [address] [place], [address]. tel:[phone] Office/Outpa tient Visit,Est, Mod Z [facility], [address] [facility] [address], [place], [address], [place] tel:[phone] [facility] No Information No Information Referring Provider: Prakash Mccauley, [facility] [address] [place], [address]. tel:[phone] Z [facility], [address] [facility] [address], [place], [address], [place] tel:[phone] [facility] No Information No Information Referring Provider: Prakash Mccauley, [facility] [address] [place], [address]. tel:[phone] [facility] [place], [address] [facility] [address], [place], [address], [place] tel:[phone] [facility] No Information No Information Referring Provider: Prakash Mccauley, [facility] [address] [place], [address]. tel:[phone] Z [facility], [address] [facility] [address], [place], [address], [place] tel:[phone] [facility] LUPUS ERYTHEMATOSU SOsteopeniaA nxietyGERDCA TARACT NOS No Information Office/Outpa tient Visit,New, Mod Z [facility], [address] [facility] [address], [place], [address], [place] tel:[phone] [facility] No Information No Information Referring Provider: Prakash Mccauley, [facility] [address] [place], [address]. tel:[phone] Family History Family Member Type Diagnosis Age At Onset Mother Problem (finding) hypothyroidism Father Problem (finding) Cancer, unknown Mother Problem (finding) hypertension Problem (finding) Family history of prost ate cancer Payers Payer name Insurance type Covered green party ID Avaa angus(s) [facility] [id number] Medicare [facility] [id number] 1 Social History Type Description Quantity Date [...]
--- OUTSIDE RECORDS SUMMARY | 2023-06-05 09:20 | XMS_ITS | Clinical Summary ---
Author Name Unknown Organization [facility] Address [address] [place] [address] Care Team Providers Care Machine Tool Technology Instructor Name Role Phone Elsewhere, Pcp Primary Care Provider Unavailabl e Source Comments Patient records contain information from all sites at [facility]. For routine questions regarding patient records, call [phone] during business hours, M-F 8:00 AM - 5:00 PM Central Time. Record requests for emergency care only can be directed to [phone] at any time.[facility] Allergies Active Allergy Reactions Criticality Noted Date Comments Adhesive Other (see comments) 05/06/2022 Adhesive Tape-Silicones Other (see comments) 06/12/2016 skin tears Amitriptyline Other (see comments) 04/27/2011 Severe disorientation, confusion Amoxicillin GI intolerance High 05/06/2022 Bee Venom Protein (Honey Bee) Other (see comments) 02/25/2016 Bee venom; edema Monosodium Glutamate GI intolerance 11/20/2021 Diarrhea Penicillin Other (see comments) 06/12/2016 Penicillin consult; may use penicillin and cephalosporin Penicillin V GI intolerance High 05/06/2022 Perphenazine Other (see comments) 04/27/2011 Severe disorientation, confusion Sulfa (Sulfonamide Antibiotics) Rash 02/25/2016 Sulfamethoxazole Rash 04/27/2011 with fever Tricyclic Antidepressants And Tricyclic Compounds Other (see comments) 02/21/2014 Severe disorientation, confusion Medications Medication Sig Dispensed Refills Start Date End Date Status acetaminophen (TYLENOL) 500 mg tablet Take 650 mg by mouth every 6 (six) hours as needed. for pain; Can purchase over the counter; Maximum acetaminophen should not exceed 3,000 mg in 24 hours from all sources 0 06/17/2016 Active calcium carbonate/vitamin D3 (CALCIUM 600 + D,3, ORAL) Take 1 capsule by mouth 2 (two) times a day. Capsule supplement 0 04/08/2016 Active famciclovir (FAMVIR) 500 mg tablet Take 1 tablet by mouth as needed. As needed for cold sores 0 06/12/2016 Active flaxseed oil 1,000 mg capsule Take 1 capsule by mouth daily. supplement 0 04/08/2016 Active furosemide (LASIX) 40 mg tablet Take 1 tablet by mouth every morning. diuretic 0 06/12/2016 Active gabapentin (NEURONTIN) 400 mg capsule Take 3 capsules by mouth 2 (two) times a day. Neuropathic pain 0 04/08/2016 Active losartan (COZAAR) 25 mg tablet Take 1 tablet by mouth daily. 0 09/17/2016 Active magnesium oxide (MAG-OX) 400 mg tablet Take 1 tablet by mouth daily. supplement 0 04/08/2016 Active melatonin 3 mg tablet Take 1 capsule by mouth at bedtime as needed. Needed for sleep 0 04/08/2016 Active metoprolol succinate (TOPROL-XL) 25 mg 24 hr tablet Take 1 tablet by mouth daily. Sustained release Heart failure 0 07/21/2016 Active multivitamin-iron tablet Take 1 tablet by mouth daily. Dietary supplement 0 04/08/2016 Active nicotine polacrilex (NICORETTE) 2 mg gum Apply to cheek as needed. Smoking cessation 0 04/08/2016 Active nystatin (NYSTOP) 100,000 unit/gram powder Apply topically as needed. Skin irritation 0 04/08/2016 Active omeprazole (PriLOSEC) [address] capsule Take 1-2 capsules by mouth every morning. Enteric coated GERD 0 06/12/2016 Active ascorbic acid, vitamin C, (VITAMIN C) 500 mg tablet Take 1 tablet by mouth daily. supplement 0 04/08/2016 Active buPROPion XL (WELLBUTRIN XL) 150 mg 24 hr tablet Take 150 mg by mouth daily. 10 12/07/2018 Active HYDROcodone-acetami nophen (NORCO) 5-325 mg per tablet Take 1 tablet by mouth daily. Also has a PRN dose 1 tablet daily 0 11/02/2018 Active levothyroxine (SYNTHROID, LEVOTHROID) 25 mcg tablet 25 mcg daily. 0 04/23/2020 Active simvastatin (ZOCOR) 20 mg tablet daily. 0 04/23/2020 Active warfarin (COUMADIN) 3 mg tablet Take 3 mg by mouth as directed. 0 03/12/2020 Active sennosides (SENOKOT) 8.6 mg tablet Take 8.6 mg by mouth as needed. 0 08/25/2021 Active loratadine (CLARITIN) 10 mg tablet Take 10 mg by mouth daily. 0 Active syringe with needle (Tuberculin Syringe) 1 mL 27 x 1/2 syringe For methotrexate administration 12 each 3 11/21/2021 Active folic acid 1 mg tabletIndications:L upus Erythematosus Take 1 tablet (1,000 mcg total) by mouth at bedtime. 90 tablet 3 06/05/2022 Active predniSONE (DELTASONE) 5 mg tabletIndications:L upus Systemic Erythematosus (HCC) Take 1 tablet (5 mg total) by mouth daily. Take with 2- 1 mg tablets for total dose of 7 mg daily 90 tablet 1 07/03/2022 Active potassium chloride (KLOR-CON SPRINKLE) 10 mEq ER sprinkle capsule Take 10 mEq by mouth 2 (two) times a day. 0 07/24/2022 Active nystatin (MYCOSTATIN) 100,000 unit/gram cream 0 06/03/2022 Active cephalexin (KEFLEX) 500 mg capsule 0 06/03/2022 Active omeprazole (PriLOSEC) [address] capsule 20 mg. 0 02/12/2022 Active iron,carbonyl-vitam in C (VITRON-C) 65 mg iron- [address] tablet Take 65 mg of iron by mouth daily. Do not crush or chew. 0 Active hydrOXYchloroQUINE (PLAQUENIL) 200 mg tabletIndications:A rthritis Inflammatory (HCC) TAKE 1 TABLET (200 MG TOTAL) BY MOUTH DAILY. 90 tablet 1 10/16/2022 Active predniSONE (DELTASONE) 1 mg tabletIndications:A rthritis Inflammatory (HCC) Take 2 tablets (2 mg total) by mouth daily. 180 tablet 1 10/29/2022 Active methotrexate 2.5 mg tabletIndications:L upus Erythematosus TAKE 6 TABLETS (15 MG TOTAL) BY MOUTH ONCE A WEEK. 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 Lab Monitoring (Collected 04/27/23) from Last 3 Months Immunizations Name Administration Dates Next Due Influenza Split 02/08/2016 Family History Medical History Relation Name Comments Prostate cancer Brother 1 Alfonzo Hypertension Brother 2 shaye Arthritis Mother Sandi Osteoporosis Mother Sandi Coronary artery disease Sister chata Skin cancer Sister chata Relation Name Status Comments Brother 1 Alfonzo Brother 2 shaye Mother Sandi Sister chata Social History Tobacco Use Types Packs/Day Years Used Date Smoking Tobacco: Former Cigarettes 0 0 Q uit: 1996 Smokeless Tobacco: Never Comments:Nicotine gum now 20 22 Alcohol Use Standard Drinks/Week Comments Never 0 (1 standard drink = 0.6 oz pur e alcohol) Humiliation, Afraid, Rape, and Kick questionnair e Answer Date Recorded Within the last year, have y ou been afraid of your partner or ex-partner? No 11/21/2021 Within the last year, have y ou been humiliated or emotionally abused in other ways by your partner or ex-partner? No Within the last year, have y ou been kicked, hit, slapped, or otherwise physically hurt by your partner or ex-partner? No 11/21/2021 Within the last year, have y ou been raped or forced to have any kind of sexual activity by your partner or ex-partner? No 11/21/2021 Social Connection and Isolat ion Panel [NHANES] Answer Date Recorded In a typical week, how many times do you talk on the phone with family, friends, or neighbors? More than three times a week 11/21/2021 How often do you get togethe r with friends or relatives? Once a week 11/21/2021 How often do you attend chur ch or amish services? 1 to 4 times per year 11/21/2021 Do you belong to any clubs o r organizations such as orthodox groups, unions, fraternal or athletic groups, or school groups? Yes 11/21/2021 How often do you attend meet ings of the clubs or organizations you belong to? More than 4 times per year 11/21/2021 Are you , , di vorced, , never , or living with a partner? 11/21/2021 AUDIT-C Answer Date Recorded Q1: How often do you have a drink containing alc ohol? Never 11/21/2021 Average Number of Drinks Not on file 022 Frequency of Binge Drinking Not on file 11/07 Overall Financial Resource Strain (CARDIA) Answe r Date Recorded How hard is it for you to pa y for the very basics like food, housing, medical care, and heating? Not hard at all 11/21/2021 [facility] Occupat ional Health - Occupational Stress Questionnaire Answer Date Recorded Do you feel stress - tense, restless, nervous, or anxious, or unable to sleep at night because your mind is troubled all the time - these days? To some extent 11/21/2021 Exercise Vital Sign Answer Date Recorde d On average, how many days pe r week do you engage in moderate to strenuous exercise (like a brisk walk)? 0 days 11/21/2021 On average, how many minutes do you engage in exercise at this level? 0 min 11/21/2021 Hunger Vital Sign Answer Date Recorded Within the past 12 months, y ou worried that your food would run out before you got the money to buy more. Never true 11/22/19 22 Within the past 12 months, t he food you bought just didn't last and you didn't have money to get more. Never true 11/21/2021 PRAPARE - Transportation Answer Date Re corded In the past 12 months, has l ack of transportation kept you from medical appointments or from getting medications? No 11/07 In the past 12 months, has l ack of transportation kept you from meetings, work, or from getting things needed for daily living? No 11/21/2021 Housing Stability Vital Sign Answer Zev e Recorded In the last 12 months, was t here a time when you were not able to pay the mortgage or rent on time? No 11/21/2021 In the last 12 months, how many places have you lived? 1 11/21/2021 In the last 12 months, was t here a time when you did not have a steady place to sleep or slept in a intermediate (including now)? No 11/21/2021 Nutrition Answer Date Recorded Nutrition: EVOO Fat Source No 11/21 On average, how many serving s of fruits and vegetables do you eat per day (serving size is equal to 1 cup or approximately the size of a tennis ball)? 2-3 11/21/2021 Dental Answer Date Recorded Dental: Regular Dentist Yes 11/22/19 Employment Answer Date Recorded Employment status Retired 11/21/2021 Education Answer Date Recorded What is the highest level of school you have completed or the highest degree you have received? Master's degree (e.g., MA, MS, Sariah, MEd, CHEST PAIN COORDINATOR, OFE) 12/22/2018 Sex and Gender Information Value Date Recorded Sex Assigned at Female 11/21/2021 2:31 PM CDT Gender Identity Female 11/22/2018 10:59 PM CDT Sexual Orientation Straight 11/22/2018 10 :59 PM CDT Last Filed Vital Signs Vital Sign Reading Time Taken Comments Blood Pressure 110/52 12/23/2018 3:41 PM CDT Pulse 83 12/23/2018 3:41 PM CDT Temperature 37.2 ??C (99 ??F) 12/23/2018 3:4 1 PM CDT Respiratory Rate 18 07/21/2016 4:13 PM CDT Value from [employer]. Oxygen Saturation - - Inhaled Oxygen Concentration - - Weight 59.5 kg (131 lb 1 oz) 12/23/2018 3:41 PM CDT Height 145.8 cm (4' 9.4) 12/23/2018 3: 41 PM CDT Body Mass Index 27.97 12/23/2018 3:41 PM CDT Plan of Treatment Health Maintenance Due Date Last Done Comments Thyroid Stimulating Hormone (TSH) test for thyroid function 1945 Hydroxychloroquine (PLAQUENI L) Annual Exam 04/09/2016 Potassium Level 07/20/2017 07/20/2016, 07/18/2016, 07/18/2016, Additional history exists Sodium Level 07/20/2017 07/20/2016, 07/18/2016, 07/18/2016, Additional history exists COVID-19 Vaccine (7 - 3-2 4 season) 2023 10/22/2022, 03/05/2022, 11/03/2021, Additional history exists Depression Screening (Annual PHQ-2) 05/10/2023 Fall Risk Screen (Annual) 05/10/2023 Creatinine Level (Kidney Function Test) 04/27/2024 04/27/2023, 02/25/2023, 06/03/2022, Additional history exists DTaP,Tdap,and Td Vaccines (3 - Td or Tdap) 02/11/2031 02/11/2021, 02/18/2011 Pneumococcal vaccine (65+ years) Completed 08/20/2014, 03/25/2010 Zoster Vaccines Completed 02/07/2019, 09/03/2018, 09/24/2011 Hydroxychloroquine (PLAQUENI L) Baseline Exam Discontinued 01/23/2021 Influenza Vaccine Completed 03/02/2023, 02/25/2022, 03/03/2021, Additional history exists HPV Vaccines Aged Out No longer eligi ble based on patient's age to complete this topic Medical Devices Implanted Type Area Cigar Head Perforator Device Identifier Shelf Expiration Date Model / Serial / Lot Hardware E.G. Pins/Screws/Mushtaq s Hardware e.g. pins/screws /rods N/A: Mouth Screw Biomet 3.5 Hex Lock 4.75 X 20 - Simmons [id number] Implanted:Qty: 1 on 06/15/2016 Hardware e.g. pins/screws /rods Other/Legacy - See Implant Description BioMet Description:Device Manufactu sti[employer]d [employer] Body Location - Other. Left. Device Status Text - [id number]. Conversions - Default Historical Implant Device Implanted:06/15 (Quantity not on file) Hip Implant Right: Hip Description:Body Location - Hip R. Device Status Text - Hip Imp. Conversions - Default Historical Implant Device Implanted:06/15 (Quantity not on file) Knee Implant Left: Knee Description:Body Location - Knee L. Device Status Text - Knee Imp. Screw Biomet 3.5 Non-Lock 4.75 X 25 - Simmons [id number] Implanted:Qty: 1 on 06/15/2016 Shoulder Implant Other/Legacy - See Implant Description BioMet Description:Device Manufactu rer [employer] Body Location - Other. Left. Device Status Text - [id number]. Procedures Procedure Name Priority Date/Time Associated Diagnosis Comments ASPARTATE AMINOTRANSFERASE (AST), S/P Routine 04/27/2023 CREATININE WITH EGFR, S/P Routine 04/27/2023 CBC WITH DIFFERENTIAL, B Routine 04/27/2023 from Last 3 Months Results * (ABNORMAL) CBC with Differential, Blood (04/27/2023) EXT Platelet Count 261 140 - 440 [facility] EXT Neutrophils 9.5(A) 1.7 - 7 [facility] EXT Hemoglobin 12.7 12 - 16 [facility] EXT White Blood Cell (WBC) Count 11.8(A) 4.5 - 11.0 [facility] Blood (Blood, Venous) El Aldana APRN, C.N.P. LAB BLOOD AD D-ON Performing Organization Address [facility] Co de Phone Number [facility] [address] [phone] * AST (Aspartate Aminotransferase) (04/27/2023) [facility] EXT AST 30 12 - 35 [facility] Blood (Blood, Venous) El Aldana APRN, C.N.P. LAB BLOOD AD D-ON Performing Organization Address City/[facility]/ZIP Co de Phone Number [facility] [address] [phone] * Creatinine with Estimated GFR (04/27/2023) [facility] EXT Creatinine 0.8 0.5 - 1.5 mg/dL [facility] Blood (Blood, Venous) El Aldana APRN, C.N.P. 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 See document viewer. Care Teams Machine Tool Technology Instructor Relationship Specialty Start Date End Date Elsewhere, Pcp PCP - General Internal Medicine 11/20/21
--- OUTSIDE RECORDS SUMMARY | 2023-06-05 09:20 | XMS_ITS | Clinical Summary ---
Author Name Unknown Organization [facility] Address [place], [place] [address] Care Team Providers Care Sueding Machine Tender Name Role Phone Prakash Moore MD Primary Care Provider [phone] Allergies Active Allergy Reactions Criticality Noted Date Comments Adhesive Tape-Silicones Other - Describe In Comment Field 06/12/2016 skin tears Amitriptyline Confusion 06/22/2011 Severe disorientation Amoxicillin-Pot Clavulanate Diarrhea 09/21/2017 Bee Venom Protein (Honey Bee) Edema 09/20/2017 Penicillins Rash 04/01/2011 Tolerates cephalosporins Perphenazine Confusion 06/22/2011 Severe disorientation Sulfa (Sulfonamide Antibiotics) Rash 04/01/2011 Tricyclic Antidepressants And Tricyclic Compounds Confusion 06/22/2011 Severe disorientation Medications Medication Sig Dispensed Refills Start Date End Date Status furosemide (LASIX) 40 mg tablet Take 40 mg by mouth every morning. 0 04/01/2011 Active fexofenadine (AALIYAH ALLERGY) 180 mg tablet Take 1 tablet by mouth once daily with a meal. 0 04/01/2011 Active magnesium oxide (MAG-OX 400) 400 mg tablet Take 400 mg by mouth once daily. 0 Active ascorbic acid chewable (VITAMIN C) 500 mg tablet Take 500 mg by mouth once daily. 0 Active MULTIVITS W-FE,OTHER MIN (PEDIATRIC HLATYMAQ-PVRN-KCT ORAL) Take by mouth once daily. 0 Active losartan (COZAAR) 25 mg tablet Take 25 mg by mouth once daily. 0 Active metoprolol succinate (TOPROL XL) 25 mg Sustained-Release tablet Take 25 mg by mouth once daily. 0 Active melatonin 3 mg tablet Take 3 mg by mouth at bedtime. 0 Active nicotine (NICORETTE) 2 mg gum Take 2 mg by mouth every hour while awake as needed for Nicotine Craving. 0 Active flaxseed 1,000 mg cap Take 1 Cap by mouth once daily. 0 Active warfarin (COUMADIN) 3 mg tablet Take 3-6 mg by mouth once daily. 0 Active gabapentin (NEURONTIN) 400 mg capsule Take 1,200 mg by mouth 2 times daily. 0 Active potassium chloride (KLOR-CON M20) 20 mEq Extended-Release tablet Take 20 mEq by mouth once daily with a meal. 0 Active omeprazole (PRILOSEC) 20 mg Delayed-Release capsule Take 20 mg by mouth once daily before a meal. 0 Active predniSONE (DELTASONE) 1 mg tablet Take 7 mg by mouth once daily with a meal. 0 Active simvastatin (ZOCOR) 20 mg tablet Take 20 mg by mouth at bedtime. 0 Active hydroxychloroquine (PLAQUENIL) 200 mg tabletIndications:O ther systemic lupus erythematosus with other organ involvement (HC) Take 1 tablet by mouth 2 times daily. 0 09/27/2017 Active HYDROcodone-acetami nophen, 5-325 mg, (NORCO) per tabletIndications:M yelopathy, spondylogenic, cervical Take 1-2 tablets by mouth every 4 hours if needed for Pain (One tablet for pain level 3 to 6. Two tablets for pain level 7 to 10.) Max acetaminophen dose: 4000 mg in 24 hrs. 80 tablet 0 09/27/2017 Active buPROPion (WELLBUTRIN XL) 150 mg Extended-Release tablet Take 1 Tablet by mouth once daily. 0 12/07/2018 Active aspirin chewable 81 mg chewable tablet Chew 81 mg by mouth once daily. chew and swallow 0 06/27/2021 Active calcium with vitamin D3 (OS-SUZETTE 500 + D) tablet Twice A Day 0 Active famciclovir (FAMVIR) 500 mg tablet 0 02/11/2021 Active methotrexate (RHEUMATREX) 2.5 mg tablet 0 08/26/2021 Active levothyroxine (SYNTHROID) 25 mcg tablet Daily 0 04/23/2020 Active sennosides (SENNA) 8.6 mg tablet Daily 0 08/25/2021 Active fluconazole (DIFLUCAN) 150 mg tablet Take 150 mg by mouth once weekly. 0 05/17/2023 Active loratadine (CLARITIN) 10 mg tablet Take 10 mg by mouth once daily. 0 Active LORazepam (ATIVAN) 0.5 mg tab Take 0.5 mg by mouth. 0 04/06/2023 Active mirtazapine (REMERON) 7.5 mg tablet Take 7.5 mg by mouth at bedtime. 0 04/30/2023 Active Active Problems Problem Noted Date Diagnosed Date Myelopathy, spondylogenic, cervical 09/23/2017 Kyphosis (acquired) (postural) 09/23/2017 Depression 09/23/2017 Anxiety 09/23/2017 History of DVT (deep vein thrombosis) 09/23/2017 History of pulmonary embolism 09/23/2017 Current chronic use of systemic steroids 018 Pedal edema 09/23/2017 Spinal stenosis, unspecified region other than c ervical 07/02/2011 Lumbar disc disease 07/02/2011 h/o stress cardiomyopathy 07/02/2011 Diastolic CHF, chronic 07/02/2011 Hypertension 07/02/2011 Systemic lupus erythematosus 07/02/2011 Encounters Date Type Department Care Team Description 06/02/[address] [address] Saran Arias DPM symtoms 05/26/2023 Telephone [facility] [address] [place] [address] Saran Arias DPM Questions (Questions on appointment) 05/25/2023 1:15 PM WHOLESALER Office Visit [facility] [address] [place] [address] Saran Arias DPM Consult (Right great toe ulcer) 05/25/2023 Travel 05/19/2023 Telephone [facility] [address] [place] [address] Saran Arias DPM CALL BACK (bunions) from Last 3 Months Immunizations Name Administration Dates Next Due Influenza, IIV3 (Age >=3 years) 02/12/2011 Social History Tobacco Use Types Packs/Day Years Used Date Smoking Tobacco: Former Cigarettes Q uit: 1979 Smokeless Tobacco: Never Tobacco Cessation:Counseling Given: Yes Alcohol Use Standard Drinks/Week Comments No 0 (1 standard drink = 0.6 oz pur e alcohol) Social Connections Answer Date Recorded Frequency of Communication with Friends and Fami ly Not on file 2021 Financial Resource Strain Answer Date R ecorded Difficulty of Paying Living Expenses Not on file 2021 Difficulty of Paying Living Expenses Not on file 2021 Sex and Gender Information Value Date Recorded Sex Assigned at Not on file Gender Identity Not on file Sexual Orientation Not on file Obstetrics History Last Filed Vital Signs Vital Sign Reading Time Taken Comments Blood Pressure 117/56 10/29/2021 3:05 PM CDT Pulse 80 10/29/2021 3:05 PM CDT Temperature 36.9 ??C (98.5 ??F) 09/28/2017 8:00 AM CD T Respiratory Rate 16 05/24/2020 3:38 PM WHOLESALER Oxygen Saturation 98% 10/29/2021 3:05 PM CDT Inhaled Oxygen Concentration - - Weight 63.5 kg (140 lb) 05/24/2020 3:38 PM WHOLESALER Height 143.5 cm (4' 8.5) 09/21/2017 4:21 PM CDT Body Mass Index 30.83 09/21/2017 4:21 PM CDT Plan of Treatment Upcoming Encounters Date Type Department Care Team (Late st Contact Info) Description 06/08/2023 2:15 PM WHOLESALER Office Visit [facility] [address] [place] [address] Saran Arias DPM [address] [place] [address] 06/23/2023 1:45 PM WHOLESALER Office Visit [facility] [address] [place] [address] Saran Arias DPM [address] [place] [address] Health Maintenance Due Date Last Done Comments Pneumococcal series for age 65+ (1 of 2 - PCV) 1949 Tdap 1954 Depression screening for age 12+ 1955 BMI (ht and wt on same day) for age 18+ 1961 Zoster (shingles) series for age 50+ (1 of 2) 1962 Tetanus booster 1963 DEXA/DXA scan for age 65+ 2008 Medicare Wellness for age 65+ 2008 COVID-19 vaccine series ( season) 2023 10/22/2022, 03/05/2022, 11/03/2021, Additional history exists Influenza for age 65+ 01/08/2023 02/12/2011 Medical Devices Implanted Type Area Vulcanizer Operator Device Identifier Shelf Expiration Date Model / Serial / Lot [id number] 1-4mm 30cc Medtronic Chips Canclls Freeze Dried Implanted:Qty: 1 on 09/23/2017 by Chase Snowden MD at [facility] Explanted:at [facility] (Quantity not on file) N/A: Spine Medtronic Spine/Ortho 09/30/2021 [id number] / [id number] / Plate Ti Occipital 50mm Implanted:Qty: 1 on 09/23/2017 by Chase Snowden MD at [facility] N/A: Spine [id number] / / Description:PLATE TI OCCIPIT AL 50MM Screw Occipital Ti 4.5 X 8 Implanted:Qty: 1 on 09/23/2017 by Chase Snowden MD at [facility] N/A: Spine 04.601.108 / / Description:SCREW OCCIPITAL TI 4.5 X 8 Screw Occipital Ti 4.5 X 10 Implanted:Qty: 1 on 09/23/2017 by Chase Snowden MD at [facility] N/A: Spine 04.601.110 / / Description:SCREW OCCIPITAL TI 4.5 X 10 Screw Cerv Post 4.5x14mm Synapse Va Canncls Titnm Implanted:Qty: 1 on 09/23/2017 by Chase Snowden MD at [facility] N/A: Spine 04.614.214 / / Description:SCREW CERV POST 4.5X14MM SYNAPSE VA CANNCLS TITNM Mushtaq Pre-Bent 3.2a845nd Titnm - [id number] Implanted:Qty: 2 on 09/23/2017 by Chase Snowden MD at [facility] N/A: Spine J And J Depuy Spine 04.161.032 # / / Set Screw Cerv Axon - [id number] Implanted:Qty: 2 on 09/23/2017 by Chase Snowden MD at [facility] N/A: Spine J And J Depuy Spine 406.104# / / Screw Cerv Post 4x10mm Synapseva Canncls Titnm - [id number] Implanted:Qty: 1 on 09/23/2017 by Chase Snowden MD at [facility] N/A: Spine J And J Depuy Spine 04.614.110 # / / Screw Cerv Post 4x12mm Synapseva Canncls Titnm - [id number] Implanted:Qty: 2 on 09/23/2017 by Chase Snowden MD at [facility] N/A: Spine J And J Depuy Spine 04.614.112 # / / Screw Cerv Post 4.5x10mm Synapse Va Canncls Titnm - [id number] Implanted:Qty: 1 on 09/23/2017 by Chase Snowden MD at [facility] N/A: Spine J And J Depuy Spine 04.614.210 # / / Screw Cerv Post 4.5x26mm Synapse Va Canncls Titnm - [id number] Implanted:Qty: 1 on 09/23/2017 by Chase Snowden MD at [facility] N/A: Spine J And J Depuy Spine 04.614.226 # / / Screw Cerv Post 4.5x28mm Synapse Va Canncls Titnm - [id number] Implanted:Qty: 3 on 09/23/2017 by Chase Snowden MD at [facility] N/A: Spine J And J Depuy Spine 04.614.228 # / / Set Screw Cerv Synapse - [id number] Implanted:Qty: 9 on 09/23/2017 by Chase Snowden MD at [facility] N/A: Spine J And J Depuy Spine 04.614.508 # / / Advance Directives Latest Code Status on File Code Status Date Activated Date Inactivated Comments Full Code 09/23/2017 7:47 PM 09/28/2017 12:30 PM Care Teams Sueding Machine Tender Relationship Specialty Start Date End Date Prakash Moore MD [address] [facility] [place] [phone] PCP - General Family Practice 09/20/17
--- OUTSIDE RECORDS SUMMARY | 2023-06-05 09:21 | XMS_ITS | Encounter Summary ---
Author Name Unknown Organization [facility] Address [address] [place] [address] Care Team Providers Care Photo Manager Name Role Phone Elsewhere, Pcp Primary Care Provider Unavailabl e Reason for Visit * Reason Onset Date Comments Subcutaneous MTX 07/28/2022 Encounter Details Date Type Department Care Team (Latest Contact Info) Description 07/28/2022 Clinical Communication Division of Rheumatology in [place], [place] [address] [place] [address] El Aldana, DEWER, C.N.P. [address] [place] [address] Subcutaneous MTX Social History Tobacco Use Types Packs/Day Years [...] often do you attend chur ch or scientology services? 1 to 4 times per year 11/21/2021 Do you belong to any clubs o r organizations such as protestant groups, unions, fraternal or athletic groups, or [...] and heating? Not hard at all 11/21/2021 [facility] - Occupational Stress [...] place to sleep or slept in a fdc (including now)? No 11/21/2021 Nutrition Answer Date [...] Master's degree (e.g., MA, MS, Sariah, MEd, RISK MANAGEMENT CONSULTANT, OFE) 12/22/2018 Sex and Gender Information Value Date Recorded Sex Assigned at Female 11/21/2021 2:31 PM CDT Gender Identity Female 11/22/2018 10:59 PM CDT Sexual Orientation Straight 11/22/2018 10 :59 PM CDT documented as of this encounter Miscellaneous Notes * Telephone Encounter - Agueda Null RCorazonN. - 08/03/2022 3:42 PM CDT Portal message with this information was sent to patient. documented in this encounter Plan of Treatment Not on file documented as of this encounter Visit Diagnoses Not on filedocumented in this encounter Care Teams Photo Manager Relationship Specialty Start Date End Date Elsewhere, Pcp PCP - General Internal Medicine 11/20/21 documented as of this encounter
--- OUTSIDE RECORDS SUMMARY | 2023-06-05 09:21 | XMS_ITS | Encounter Summary ---
Author Name Unknown Organization [facility] Address [address] [place] [address] Care Team Providers Care Exerciser Horse Name Role Phone Elsewhere, Pcp Primary Care Provider Unavailabl e Reason for Visit * Reason Onset Date Comments Pre-visit Intake 08/03/2022 Encounter Details Date Type Department Care Team (Latest Contact Info) Description 08/03/2022 1:30 PM CDT Clinical Communication Virtual Review in [place], [place] [address] [place], [place] [phone] Pre-visit Intake Social History Tobacco Use Types Packs/Day Years [...] often do you attend chur ch or yarsanism services? 1 to 4 times per year 11/21/2021 Do you belong to any clubs o r organizations such as hindu groups, unions, fraternal or athletic groups, or [...] and heating? Not hard at all 11/21/2021 [facility] of Occupat ional Health - Occupational Stress [...] place to sleep or slept in a usp (including now)? No 11/21/2021 Nutrition Answer Date [...] Master's degree (e.g., MA, MS, Sariah, MEd, ASSISTANT AUDITOR, OFE) 12/22/2018 Sex and Gender Information Value Date Recorded Sex Assigned at Female 11/21/2021 2:31 PM CDT Gender Identity Female 11/22/2018 10:59 PM CDT Sexual Orientation Straight 11/22/2018 10 :59 PM CDT documented as of this encounter Plan of Treatment Not on file documented as of this encounter Visit Diagnoses Not on filedocumented in this encounter Care Teams Exerciser Horse Relationship Specialty Start Date End Date Elsewhere, Pcp PCP - General Internal Medicine 11/20/21 documented as of this encounter
--- OUTSIDE RECORDS SUMMARY | 2023-06-05 09:21 | XMS_ITS ---
Author Name Unknown Organization [facility] Address [address] [place] [address] Care Team Providers Care Patent Prosecution Paralegal Name Role Phone Unavailable Unavailable Unavailable Surgery Details Not on file Complications Check Surgery Details section. Procedure Estimated Blood Loss Check Surgery Details section. Procedure Findings Check Surgery Details section. Procedure Specimens Taken Check Surgery Details section.
--- OUTSIDE RECORDS SUMMARY | 2023-06-05 09:21 | XMS_ITS | Encounter Summary ---
Author Name Unknown Organization [facility] Address [address] [place] [address] Care Team Providers Care Radio Repairman Name Role Phone Elsewhere, Pcp Primary Care Provider Unavailabl e Reason for Visit * Reason Onset Date Comments renewal of med monitoring letter 02/24/2023 Taking MTX Encounter Details Date Type Department Care Team (Latest Contact Info) Description 02/24/2023 Clinical Communication Division of Rheumatology in [place], [place] [address] [place] [phone] El Aldana, PUBLIC RELATIONS ASSOCIATE, C.N.P. [address] [place] [phone] renewal of med monitoring letter (Taking MTX) Social History Tobacco Use Types Packs/Day Years [...] often do you attend chur ch or latter-day services? 1 to 4 times per year 11/21/2021 Do you belong to any clubs o r organizations such as anabaptism groups, unions, fraternal or athletic groups, or [...] and heating? Not hard at all 11/21/2021 [facility] - Occupational Stress Questionnaire Answer [...] place to sleep or slept in a correction (including now)? No 11/21/2021 Nutrition Answer Date [...] Master's degree (e.g., MA, MS, Sariah, MEd, SENIOR MEDICAL BILLING SPECIALIST, OFE) 12/22/2018 Sex and Gender Information Value Date Recorded Sex Assigned at Female 11/21/2021 2:31 PM CDT Gender Identity Female 11/22/2018 10:59 PM CDT Sexual Orientation Straight 11/22/2018 10 :59 PM CDT documented as of this encounter Plan of Treatment Not on file documented as of this encounter Visit Diagnoses Not on filedocumented in this encounter Additional Health Concerns Infection Onset Date Last Indicated Resolved Time Protective Environment 08/17/2022 08/17/2022 documented as of this encounter Care Teams Radio Repairman Relationship Specialty Start Date End Date Elsewhere, Pcp PCP - General Internal Medicine 11/20/21 documented as of this encounter
--- OUTSIDE RECORDS SUMMARY | 2023-06-05 09:21 | XMS_ITS | Encounter Summary ---
Author Name Unknown Organization [facility] Address [address] [place] [address] Care Team Providers Care Lemon Picker Name Role Phone Elsewhere, Pcp Primary Care Provider Unavailabl e Reason for Visit * Reason Comments Med Refill Encounter Details Date Type Department Care Team (Late st Contact Info) Description 10/13/2022 Refill Division of Rheumatology in [place], [place] [address] [place] [phone] El Aldana, MILLER HEAD ASSISTANT WET PROCESS, C.N.P. [address] [place] [address] Med Refill Social History Tobacco Use Types Packs/Day Years [...] often do you attend chur ch or episcopal services? 1 to 4 times per year 11/21/2021 Do you belong to any clubs o r organizations such as scientology groups, unions, fraternal or athletic groups, or [...] and heating? Not hard at all 11/21/2021 [facility] Occupat ional Health - Occupational Stress [...] place to sleep or slept in a penitentiary (including now)? No 11/21/2021 Nutrition Answer Date [...] Master's degree (e.g., MA, MS, Sariah, MEd, MILITARY EDUCATION COORDINATOR, OFE) 12/22/2018 Sex and Gender Information Value Date Recorded Sex Assigned at Female 11/21/2021 2:31 PM CDT Gender Identity Female 11/22/2018 10:59 PM CDT Sexual Orientation Straight 11/22/2018 10 :59 PM CDT documented as of this encounter Miscellaneous Notes * Telephone Encounter - Tiff Dias RCorazonN. - 10/16/2022 12:08 PM CDT RHU visit scheduled 10/16/22, awaiting plan of care. documented in this encounter Plan of Treatment Not on file documented as of this encounter Visit Diagnoses Diagnosis Arthritis Inflammatory (HCC) documented in this encounter Additional Health Concerns Infection Onset Date Last Indicated Resolved Time Protective Environment 08/17/2022 08/17/2022 documented as of this encounter Care Teams Lemon Picker Relationship Specialty Start Date End Date Elsewhere, Pcp PCP - General Internal Medicine 11/20/21 documented as of this encounter
--- OUTSIDE RECORDS SUMMARY | 2023-06-05 09:21 | XMS_ITS | Encounter Summary ---
Author Name Unknown Organization [facility] Address [address] [place] [address] Care Team Providers Care Hvac Operations Technician Name Role Phone Elsewhere, Pcp Primary Care Provider Unavailabl e Reason for Visit * Reason Comments Med Refill Encounter Details Date Type Department Care Team (Late st Contact Info) Description 02/22/2023 Refill Division of Rheumatology in [place], [place] [address] [place] [phone] Brittany Jauregui, EVE, C.N.P., M.S. [address] [place] [address] Med Refill Social History Tobacco Use Types [...] often do you attend chur ch or hindu services? 1 to 4 times per year 11/21/2021 Do you belong to any clubs o r organizations such as cheondoism groups, unions, fraternal or athletic groups, or [...] heating? Not hard at all 11/21/2021 [facility] of Occupat ional Health - Occupational [...] place to sleep or slept in a group home (including now)? No 11/21/2021 Nutrition Answer Date [...] Master's degree (e.g., MA, MS, Sariah, MEd, PRODUCT CONTROL AND LOGISTICS ANALYST, OFE) 12/22/2018 Sex and Gender Information Value Date Recorded Sex Assigned at Female 11/21/2021 2:31 PM CDT Gender Identity Female 11/22/2018 10:59 PM CDT Sexual Orientation Straight 11/22/2018 10 :59 PM CDT documented as of this encounter Miscellaneous Notes * Telephone Encounter - Tiff Dias R.N. - 02/26/2023 11:30 AM CDT Prescription renewal request for methotrexate received from pharmacy. HISTORY OF PRESENT ILLNESS Last Rheum visit: 10/16/22 with El Aldana APRN, WALL CLEANER Future office visit: not ordered Last monitoring labs/eye exam: 02/25/23: within protocol parameters. Except no neutrophil count completed. Prescription request matches current plan of care. Prescription request matches a current prescription in the Medication List. Exclusion criteria: None (If an alert appeared, it was determined to be an approved exception) ASSESSMENT/PLAN Prescription request pended for provider review due to no neutrophil count completed with most recent lab draw.. * Telephone Encounter - Tiff Dias R.N. - 02/26/2023 8:30 AM CDT Awaiting lab results, do not see results in patient chart yet. * Telephone Encounter - Agueda Null R.N. - 02/25/2023 9:45 AM CDT Awaiting lab results. * Telephone Encounter - Elvia Siddiqi R.N. - 02/24/2023 12:42 PM CDT SUBJECTIVE CHIEF COMPLAINT / REASON FOR CALL Med Refill Information Discussed Contacted patient to inform her that she is overdue for medication monitoring labs as they were last completed in May and they are needed every 3 months. Patient stated that she has an appointment to have the labs completed tomorrow. Advised patient that once we have received and reviewed the lab results, we at that time would be able to refill her methotrexate. Patient verbalized understanding. PLAN Disposition/Recommendation: self-care appropriate at this time, patient encouraged to call back with questions and Patient will have labs completed tomorrow, 02/25/2023, and once we have received theresults will work on refilling patients prescription at that time. Information/Education: patient/caller able to teach back Caller agreeable to plan of care: yes The following references were used: nursing clinical judgement * Telephone Encounter - Lopez Bojorquez R.N. - 02/23/2023 10:24 AM CDT Attempted second call, LVM. * Telephone Encounter - Lopez Bojorquez R.N. - 02/22/2023 4:11 PM CDT Please attempt to contact patient, last set of methotrexate labs was 06/03/2022 (checked labs tab, CE and under media). Patient given 30-day supply due to lack of labs on 01/04/2023. POM sent, was not read, letter mailed on 01/08/2023. Received refill request for methotrexate on 02/22/2023. No labs have been completed. Attempted to contact patient, left message to call back. documented in this encounter Plan of Treatment Not on file documented as of this encounter Procedures Procedure Name Priority Date/Time Associated Diagnosis Comments EXTP COMPLETE METABOLIC PANEL, BLOOD Routine 02/25/2023 EXTP COMPLETE METABOLIC PANEL, BLOOD Routine 02/25/2023 EXTP COMPLETE BLOOD COUNT, BLOOD Routine 02/25/2023 documented in this encounter Results * EXT Complete Metabolic Panel, Blood (02/25/2023) EXT Alkaline Phosphatase 67 [facility] Blood (Blood, Venous) 02/25/2023 Historical Provider LAB BLOOD NON ADD-ON [facility] [address] [place] [address], [facility] [phone] * EXT Complete Metabolic Panel, Blood (02/25/2023) EXT AST 48 [facility] EXT ALT 25 [facility] EXT Creatinine 0.7 mg/dL [facility] Blood (Blood, Venous) 02/25/2023 Historical Provider LAB BLOOD NON ADD-ON Performing Organization Address City/[facility]/ZIP Co de Phone Number [facility] [address] [place], [place] [phone] [place] [address] * EXT Complete Blood Count, Blood (02/25/2023) EXT Hemoglobin 11.5 [facility] EXT Leukocytes 9.71 [facility] EXT Platelet Count 312 [facility] Blood (Blood, Venous) 02/25/2023 Historical Provider LAB BLOOD NON ADD-ON Performing Organization Address [facility] Co de Phone Number [facility] [address] [phone] documented in this encounter Visit Diagnoses Diagnosis Lupus Erythematosus documented in this encounter Additional Health Concerns Infection Onset Date Last Indicated Resolved Time Protective Environment 08/17/2022 08/17/2022 documented as of this encounter Care Teams Hvac Operations Technician Relationship Specialty Start Date End Date Elsewhere, Pcp PCP - General Internal Medicine 11/20/21 documented as of this encounter
--- OUTSIDE RECORDS SUMMARY | 2023-06-05 09:21 | XMS_ITS | Encounter Summary ---
Author Name Unknown Organization [facility] Address [address] [place] [address] Care Team Providers Care Insurance Verification Clerk Name Role Phone Elsewhere, Pcp Primary Care Provider Unavailabl e Reason for Visit * Reason Comments Med Refill Encounter Details Date Type Department Care Team (Late st Contact Info) Description 10/28/2022 Refill Division of Rheumatology in [place], [place] [address] [place] [phone] El Aldana, PSYCHOLOGIST COUNSELING, C.N.P. [address] [place] [address] Med Refill Social History Tobacco Use Types [...] often do you attend chur ch or voodoo services? 1 to 4 times per year 11/21/2021 Do you belong to any clubs o r organizations such as voodoo groups, unions, fraternal or athletic groups, or [...] heating? Not hard at all 11/21/2021 [facility] of Occupat ional Health - Occupational [...] place to sleep or slept in a senior living (including now)? No 11/21/2021 Nutrition Answer Date [...] Master's degree (e.g., MA, MS, Sariah, MEd, LAND LEASING INFORMATION CLERK, OFE) 12/22/2018 Sex and Gender Information Value Date Recorded Sex Assigned at Female 11/21/2021 2:31 PM CDT Gender Identity Female 11/22/2018 10:59 PM CDT Sexual Orientation Straight 11/22/2018 10 :59 PM CDT documented as of this encounter Miscellaneous Notes * Telephone Encounter - Dee Dee Massey M.SCorazonN., R.N. - 10/29/2022 11:50 AM CDT Prescription renewal request for prednisone received from pharmacy. HISTORY OF PRESENT ILLNESS Last Rheum visit: 10/16/22 with El Aldana APRN, INTERDISCIPLINARY PROFESSOR Future office visit: ordered, not yet scheduled Last monitoring labs/eye exam: Not required. Prescription request matches current plan of care. Prescription request matches a current prescription in the Medication List. Exclusion criteria: None ASSESSMENT/PLAN Prescription request renewed per nursing protocol. documented in this encounter Plan of Treatment Not on file documented as of this encounter Visit Diagnoses Diagnosis Arthritis Inflammatory (HCC) documented in this encounter Additional Health Concerns Infection Onset Date Last Indicated Resolved Time Protective Environment 08/17/2022 08/17/2022 documented as of this encounter Care Teams Insurance Verification Clerk Relationship Specialty Start Date End Date Elsewhere, Pcp PCP - General Internal Medicine 11/20/21 documented as of this encounter
--- OUTSIDE RECORDS SUMMARY | 2023-06-05 09:21 | XMS_ITS | Encounter Summary ---
Author Name Unknown Organization [facility] Address [address] [place] [address] Care Team Providers Care Sheriffs Detective Name Role Phone Elsewhere, Pcp Primary Care Provider Unavailabl e Reason for Visit * Reason Comments Med Refill Encounter Details Date Type Department Care Team (Late st Contact Info) Description 07/28/2022 Refill Division of Rheumatology in [place], [place] [address] [place] [phone] El Aldana, TAP BUILDER, C.N.P. [address] [place] [address] Med Refill Social History Tobacco Use Types [...] often do you attend chur ch or faith services? 1 to 4 times per year 11/21/2021 Do you belong to any clubs o r organizations such as episcopalian groups, unions, fraternal or athletic groups, or [...] and heating? Not hard at all 11/21/2021 [facility] of Occupat ional Health - Occupational Stress [...] place to sleep or slept in a alf (including now)? No 11/21/2021 Nutrition Answer Date [...] Master's degree (e.g., MA, MS, Sariah, MEd, SHIPFITTER HELPER, OFE) 12/22/2018 Sex and Gender Information Value Date Recorded Sex Assigned at Female 11/21/2021 2:31 PM CDT Gender Identity Female 11/22/2018 10:59 PM CDT Sexual Orientation Straight 11/22/2018 10 :59 PM CDT documented as of this encounter Miscellaneous Notes * Telephone Encounter - Agueda Null R.N. - 07/28/2022 2:24 PM CDT I will refuse this request as a 3 month refill, plus one more three month refill was sent to this pharmacy yesterday. documented in this encounter Plan of Treatment Not on file documented as of this encounter Visit Diagnoses Diagnosis Lupus Erythematosus documented in this encounter Care Teams Sheriffs Detective Relationship Specialty Start Date End Date Elsewhere, Pcp PCP - General Internal Medicine 11/20/21 documented as of this encounter
--- OUTSIDE RECORDS SUMMARY | 2023-06-05 09:21 | XMS_ITS | Encounter Summary ---
Author Name Unknown Organization [facility] Address [address] [place] [address] Care Team Providers Care Sheet Metal Assembler And Riveter Name Role Phone Elsewhere, Pcp Primary Care Provider Unavailabl e Reason for Visit * Reason Comments Med Refill Encounter Details Date Type Department Care Team (Late st Contact Info) Description 01/02/2023 Refill Division of Rheumatology in [place], [place] [address] [place] [phone] El Aldana, PLANT PATHOLOGIST, C.N.P. [address] [place] [address] Med Refill Social History Tobacco Use Types [...] often do you attend chur ch or yazidi services? 1 to 4 times per year 11/21/2021 Do you belong to any clubs o r organizations such as buddhism groups, unions, fraternal or athletic groups, or [...] heating? Not hard at all 11/21/2021 [facility] of Occupat ional Health - Occupational [...] Master's degree (e.g., MA, MS, Sariah, MEd, LABOR LAW PROFESSOR, OFE) 12/22/2018 Sex and Gender Information Value Date Recorded Sex Assigned at Female 11/21/2021 2:31 PM CDT Gender Identity Female 11/22/2018 10:59 PM CDT Sexual Orientation Straight 11/22/2018 10 :59 PM CDT documented as of this encounter Miscellaneous Notes * Telephone Encounter - Mickey Ramirez RCorazonNCorazon - 01/04/2023 4:10 PM CDT Prescription renewal request for methotrexate received from pharmacy. HISTORY OF PRESENT ILLNESS Last Rheum visit: 10/16/22 with El Aldana APRN, SEAMAN OFFICER Future office visit: ordered, not yet scheduled Last monitoring labs/eye exam: 06/03/22: outside protocol parameters. Needed every three months Prescription request matches current plan of care. Prescription request matches a current prescription in the Medication List. Exclusion criteria: None ASSESSMENT/PLAN Prescription request pended for provider review due to missing monitoring labs. 30 day supply pended. documented in this encounter Plan of Treatment Not on file documented as of this encounter Visit Diagnoses Diagnosis Lupus Erythematosus documented in this encounter Additional Health Concerns Infection Onset Date Last Indicated Resolved Time Protective Environment 08/17/2022 08/17/2022 documented as of this encounter Care Teams Sheet Metal Assembler And Riveter Relationship Specialty Start Date End Date Elsewhere, Pcp PCP - General Internal Medicine 11/20/21 documented as of this encounter
--- OUTSIDE RECORDS SUMMARY | 2023-06-05 09:21 | XMS_ITS | Encounter Summary ---
Author Name Unknown Organization [facility] Address [address] [place] [address] Care Team Providers Care Induction Coordination Engineer Name Role Phone Elsewhere, Pcp Primary Care Provider Unavailabl e Encounter Details Date Type Department Care Team (Late st Contact Info) Description 08/20/2022 Clinical Communication Division of Rheumatology in [place], [place] [address] [place] [phone] El Aldana, EXERCISE SCIENCE INTERNSHIP, C.N.P. [address] [place] [address] Social History Tobacco Use Types Packs/Day Years [...] often do you attend chur ch or judaism services? 1 to 4 times per year 11/21/2021 Do you belong to any clubs o r organizations such as synagogue groups, unions, fraternal or athletic groups, or [...] and heating? Not hard at all 11/21/[address] [facility] of Occupat ional Health - Occupational Stress [...] place to sleep or slept in a care home (including now)? No 11/21/2021 Nutrition Answer [...] Master's degree (e.g., MA, MS, Sariah, MEd, RELAY ENGINEER, OFE) 12/22/2018 Sex and Gender Information Value [...] documented as of this encounter Care Teams Induction Coordination Engineer Relationship Specialty Start Date End Date Elsewhere, Pcp PCP - General Internal Medicine 11/20/21 documented as of this encounter
--- OUTSIDE RECORDS SUMMARY | 2023-06-05 09:21 | XMS_ITS | Encounter Summary ---
Author Name Unknown Organization [facility] Address [address] [place] [address] Care Team Providers Care Repeater Chief Name Role Phone Elsewhere, Pcp Primary Care Provider Unavailabl e Reason for Visit * Reason Comments Lab Monitoring Collected 04/27/23 Encounter Details Date Type Department Care Team (Latest Contact Info) Description 04/28/2023 Clinical Communication Division of Rheumatology in [place], [place] [address] [place] [phone] El Aldana, AUTO PHONE INSTALLER, C.N.P. [address] [place] [address] Lab Monitoring (Collected 04/27/23) Social History Tobacco Use Types Packs/Day Years [...] often do you attend chur ch or yazdanism services? 1 to 4 times per year 11/21/2021 Do you belong to any clubs o r organizations such as temple groups, unions, fraternal or athletic groups, or [...] and heating? Not hard at all 11/21/2021 [facility] of Occupat ional Health - Occupational [...] Master's degree (e.g., MA, MS, Sariah, MEd, MACHINIST/MACHINE BUILDER, OFE) 12/22/2018 Sex and Gender Information Value Date Recorded Sex Assigned at Female 11/21/2021 2:31 PM CDT Gender Identity Female 11/22/2018 10:59 PM CDT Sexual Orientation Straight 11/22/2018 10 :59 PM CDT documented as of this encounter Miscellaneous Notes * Telephone Encounter - Candice Victor, R.N. - 04/28/2023 4:18 PM CHIEF MINISTER Documentation note only, patient not contacted ASSESSMENT Rheumatology monitoring labs completed at an external lab on 04/27/23 were reviewed per Rheumatology division parameters. Labs reviewed: absolute neutrophil count, AST, creatinine, hemoglobin, leukocytes, platelets External labs were entered into Labs Tab and sent for scanning. Labs Tab of Chart Review PLAN Patient to continue with current plan of care. F MINISTER documented in this encounter Plan of Treatment Not on file documented as of this encounter Procedures Procedure Name Priority Date/Time Associated Diagnosis Comments CBC WITH DIFFERENTIAL, B Routine 04/27/2023 ASPARTATE AMINOTRANSFERASE (AST), S/P Routine 04/27/2023 CREATININE WITH EGFR, S/P Routine 04/27/2023 documented in this encounter Results * AST (Aspartate Aminotransferase) (04/27/2023) EXT AST 30 12 - 35 [facility] Blood (Blood, Venous) El Aldana APRN, C.N.P. LAB BLOOD AD D-ON Performing Organization Address City/[facility] Co de Phone Number [facility] [address] [place] [address] * Creatinine with Estimated GFR (04/27/2023) EXT Creatinine 0.8 0.5 - 1.5 mg/dL [facility] Blood (Blood, Venous) El Aldana APRN, C.N.P. LAB BLOOD AD D-ON Performing Organization Address City/[facility]/ZIP Co de Phone Number [facility] [address] [place] [address] * (ABNORMAL) CBC with Differential, Blood (04/27/2023) EXT Platelet Count 261 140 - 440 [facility] EXT Neutrophils 9.5(A) 1.7 - 7 [facility] EXT Hemoglobin 12.7 12 - 16 [facility] EXT White Blood Cell (WBC) Count 11.8(A) 4.5 - 11.0 [facility] Blood (Blood, Venous) El Aldana APRN, C.N.P. LAB BLOOD AD D-ON [facility] [address] [phone] documented in this encounter Visit Diagnoses Not on filedocumented in this encounter Additional Health Concerns Infection Onset Date Last Indicated Resolved Time Protective Environment 08/17/2022 08/17/2022 documented as of this encounter Care Teams Repeater Chief Relationship Specialty Start Date End Date Elsewhere, Pcp PCP - General Internal Medicine 11/20/21 documented as of this encounter
--- OUTSIDE RECORDS SUMMARY | 2023-06-05 09:21 | XMS_ITS | Encounter Summary ---
Author Name Unknown Organization [facility] Address [address] [place] [address] Care Team Providers Care Supervisory Forester Name Role Phone Elsewhere, Pcp Primary Care Provider Unavailabl e Reason for Referral * Outpatient (Routine) - Authorized Specialty Diagnoses / Procedures Referred By Navin choi Referred To Contact Ophthalmology Diagnoses High Risk Medication Procedures Ophthalmology - Plaquenil screen eConsult El Aldana APRN, C.N.P. [address] [place] [phone] [facility] Referral ID Status Reason Start Date Expiration Date V isits Requested Visits Authorized [id number] Authorized 10/16/2022 10/16/2023 1 1 Reason for Visit * Outpatient (Routine) - Closed Specialty Diagnoses / Procedures Referred By Navin choi Referred To Contact Rheumatology El Aldana APRN, C.N.P. [address] [place] [phone] [facility] Referral ID Status Reason Start Date Expiration Date Visits Re quested Visits Authorized [id number] Closed 10/07/2022 10/06/2025 1 1 Encounter Details Date Type Department Care Team (Latest Contact Info) Description 10/16/2022 3:30 PM CDT Virtual Visit Division of Rheumatology in [place], [place] [address] [place] [phone] El Aldana APRN, C.N.P. [address] [place] [address] Lupus Systemic Erythematosus (HCC) (Primary Dx); High Risk Medication Social History Tobacco Use Types Packs/Day Years [...] 11/21/2021 How often do you attend chur or hindu services? 1 to 4 times per year 11/21/2021 Do you belong to any clubs o r organizations such as anabaptist groups, unions, fraternal or athletic groups, or [...] and heating? Not hard at all 11/21/2021 [facility] of Occupat ional Health - Occupational Stress [...] place to sleep or slept in a assisted (including now)? No 11/21/2021 Nutrition Answer Date [...] Master's degree (e.g., MA, MS, Sariah, MEd, TRACK TEMPLATE MAKER, OFE) 12/22/2018 Sex and Gender Information Value Date Recorded Sex Assigned at Female 11/21/2021 2:31 PM CDT Gender Identity Female 11/22/2018 10:59 PM CDT Sexual Orientation Straight 11/22/2018 10 :59 PM CDT documented as of this encounter Progress Notes * El Aldana APRN, C.N.P. - 10/16/2022 3:30 PM CDT SUBJECTIVE CHIEF COMPLAINT / REASON FOR VISIT The patient requested this [id number] phone visit for SLE, medication safety. HISTORY OF PRESENT ILLNESS Ms. Frost was last seen 11/21/2021 in follow up. She reports today that things are stable. She is open to pursuing eye testing here. 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 Previous Reports Reviewed:lab reports and office notes OBJECTIVE DIAGNOSTICS I reviewed the pertinent laboratory and diagnostic test results. I reviewed the imaging studies andagree with the interpretations as recorded. ASSESSMENT / PLAN #1 Lupus Systemic Erythematosus (HCC) #2 High Risk Medication She has talked with her daughter and will work on scheduling a return visit within the next couple of months. She is aware that return visits are going out several months at this point. I will order ophthalmology evaluation and connect with our colleagues in Ophthalmology to see if they perceives that they will be able to facilitate testing. The patient has perceived benefit to ongoing use of hydroxychloroquine so would prefer to continue use of this if possible. FOLLOW-UP Within the next three months PATIENT EDUCATION The impression and plans were explained in detail. There were no apparent barriers to learning and understanding. Questions were answered. BILLING I personally spent a total of 8 minutes on this telephone call with the patient/caregiver as described above. El Aldana APRN, C.N.P. documented in this encounter Plan of Treatment Scheduled Orders Name Type Priority Associated Diagnoses Orde r Schedule Fundus Photos - OU - Both Eyes Ophthalmology Routine High Risk Medication Expected: 10/16/2022 (Approximate), Expires: 01/17/2024 Automated VF - Extended - OU - Both Eyes Ophthalmology Routine High Risk Medication Expected: 10/16/2022 (Approximate), Expires: 01/17/2024 Optical Coherence Tomography (OCT) - Macula/Retina - OU - Both Eyes Ophthalmology Routine High Risk Medication Expected: 10/16/2022 (Approximate), Expires: 01/17/2024 documented as of this encounter Visit Diagnoses Diagnosis Lupus Systemic Erythematosus (HCC)- Primary High Risk Medication documented in this encounter Additional Health Concerns Infection Onset Date Last Indicated Resolved Time Protective Environment 08/17/2022 08/17/2022 documented as of this encounter Care Teams Supervisory Forester Relationship Specialty Start Date End Date Elsewhere, Pcp PCP - General Internal Medicine 11/20/21 documented as of this encounter
--- OUTSIDE RECORDS SUMMARY | 2023-06-05 09:21 | XMS_ITS | Encounter Summary ---
Author Name Unknown Organization [facility] Address [address] [place] [address] Care Team Providers Care Customer Experience Specialist Name Role Phone Elsewhere, Pcp Primary Care Provider Unavailabl e Reason for Visit * Reason Comments Med Refill Encounter Details Date Type Department Care Team (Late st Contact Info) Description 09/26/2022 Refill Division of Rheumatology in [place], [place] [address] [place] [phone] El Aldana, TOWER TRUCK DRIVER, C.N.P. [address] [place] [address] Med Refill Social History Tobacco Use Types [...] often do you attend chur ch or sabianism services? 1 to 4 times per year 11/21/2021 Do you belong to any clubs o r organizations such as caodaism groups, unions, fraternal or athletic groups, or [...] and heating? Not hard at all 11/21/2021 [facility] of Occupat ional Health - Occupational Stress [...] place to sleep or slept in a prison (including now)? No 11/21/2021 Nutrition Answer Date [...] Master's degree (e.g., MA, MS, Sariah, MEd, GERMAN INSTRUCTOR, OFE) 12/22/2018 Sex and Gender Information Value Date Recorded Sex Assigned at Female 11/21/2021 2:31 PM CDT Gender Identity Female 11/22/2018 10:59 PM CDT Sexual Orientation Straight 11/22/2018 10 :59 PM CDT documented as of this encounter Miscellaneous Notes * Telephone Encounter - Mickey Ramirez RCorazonNCorazon - 10/01/2022 3:08 PM CDT Prescription renewal request for hydroxychloroquine (Plaquenil), prednisone received from pharmacy and patient. HISTORY OF PRESENT ILLNESS Last Rheum visit: 11/21/21 with El Aldana APRN, RADIOLOGY MANAGER Future office visit: ordered, not yet scheduled Last monitoring labs/eye exam: 03/24/22: outside protocol parameters. Last eye exam was not able nya completed. See 08/21/22 message for details. Prescription request matches current plan of care. Prescription request matches a current prescription in the Medication List. Exclusion criteria: None - Alert determined to be an approved exception ASSESSMENT/PLAN Prescription request pended for provider review due to eye exam. Prednisone 1 mg tabs not current in med list * Telephone Encounter - Agueda Null R.N. - 09/29/2022 2:39 PM CDT Please see POM that was sent to patient yesterday. Patient also needs Prednisone refill. Awaiting response from patient. documented in this encounter Plan of Treatment Not on file documented as of this encounter Visit Diagnoses Diagnosis Arthritis Inflammatory (HCC) documented in this encounter Additional Health Concerns Infection Onset Date Last Indicated Resolved Time Protective Environment 08/17/2022 08/17/2022 documented as of this encounter Care Teams Customer Experience Specialist Relationship Specialty Start Date End Date Elsewhere, Pcp PCP - General Internal Medicine 11/20/21 documented as of this encounter
--- OUTSIDE RECORDS SUMMARY | 2023-06-05 09:21 | XMS_ITS | Encounter Summary ---
Author Name Unknown Organization [facility] Address [address] [place] [address] Care Team Providers Care Family Law Mediator Name Role Phone Elsewhere, Pcp Primary Care Provider Unavailabl e Reason for Visit * Reason Comments Med Refill Encounter Details Date Type Department Care Team (Late st Contact Info) Description 08/17/2022 Refill Division of Rheumatology in [place], [place] [address] [place] [phone] El Aldana, HOOK AND EYE SEWING MACHINE OPERATOR, C.N.P. [address] [place] [address] Med Refill Social History Tobacco Use Types [...] often do you attend chur ch or zoroastrian services? 1 to 4 times per year 11/21/2021 Do you belong to any clubs o r organizations such as taoism groups, unions, fraternal or athletic groups, or [...] and heating? Not hard at all 11/21/2021 [facility] of Occupat ional Health - Occupational Stress [...] place to sleep or slept in a [place] facility (including now)? No 11/21/2021 Nutrition Answer Date [...] Master's degree (e.g., MA, MS, Sariah, MEd, SUPERVISOR SAFETY DEPOSIT, OFE) 12/22/2018 Sex and Gender Information Value Date Recorded Sex Assigned at Female 11/21/2021 2:31 PM CDT Gender Identity Female 11/22/2018 10:59 PM CDT Sexual Orientation Straight 11/22/2018 10 :59 PM CDT documented as of this encounter Miscellaneous Notes * Telephone Encounter - Agueda Null RCorazonNCorazon - 08/18/2022 12:48 PM CDT Prescription renewal request for hydroxychloroquine (Plaquenil) received from pharmacy. HISTORY OF PRESENT ILLNESS Last Rheum visit: 11/21/21 with El Aldana APRN, TRADING ASSISTANT Future office visit: ordered, not yet scheduled Last monitoring labs/eye exam: The eye exam performed outside of [facility], dated was not able to be completed for the Plaquenil screening. Due to the positioning required for OCT and VF tests, patient not able to tolerate. Per notes from Eye provider, recommended tapering off the medication asthese cannot be performed. Noted mild maculopathy. Prescription request does not match current plan of care. The request did not come with dose information. Prescription request does not match a current prescription in the Medication List. The request did not come with dose information. Exclusion criteria: None ASSESSMENT/PLAN Prescription request pended for provider review due to see if provider wants to continue prescribing the medication as OCT and VF testing not able to be done.. documented in this encounter Plan of Treatment Not on file documented as of this encounter Visit Diagnoses Diagnosis Arthritis Inflammatory (HCC) documented in this encounter Additional Health Concerns Infection Onset Date Last Indicated Resolved Time Protective Environment 08/17/2022 08/17/2022 documented as of this encounter Care Teams Family Law Mediator Relationship Specialty Start Date End Date Elsewhere, Pcp PCP - General Internal Medicine 11/20/21 documented as of this encounter
--- OUTSIDE RECORDS SUMMARY | 2023-06-05 09:21 | XMS_ITS | Encounter Summary ---
Author Name Unknown Organization [facility] Address [address] [place] [address] Care Team Providers Care Thermit Welding Machine Operator Name Role Phone Elsewhere, Pcp Primary Care Provider Unavailabl e Reason for Visit * Reason Onset Date Comments Lab Monitoring 02/26/2023 02/25/23 Encounter Details Date Type Department Care Team (Latest Contact Info) Description 02/26/2023 Clinical Communication Division of Rheumatology in [place], [place] [address] [place] [address] El Aldana, EVE, C.N.P. [address] [place] [address] Lab Monitoring (02/25/23) Social History Tobacco Use Types Packs/Day Years [...] often do you attend chur ch or adventist services? 1 to 4 times per year 11/21/2021 Do you belong to any clubs o r organizations such as druze groups, unions, fraternal or athletic groups, or [...] and heating? Not hard at all 11/21/2021 [facility] - Occupational Stress Questionnaire [...] place to sleep or slept in a mcfp (including now)? No 11/21/2021 Nutrition Answer Date [...] Master's degree (e.g., MA, MS, Sariah, MEd, WHEAT FARMER, OFE) 12/22/2018 Sex and Gender Information Value Date Recorded Sex Assigned at Female 11/21/2021 2:31 PM CDT Gender Identity Female 11/22/2018 10:59 PM CDT Sexual Orientation Straight 11/22/2018 10 :59 PM CDT documented as of this encounter Miscellaneous Notes * Telephone Encounter - Candice Victor RCorazonNCorazon - 02/26/2023 2:00 PM CDT Documentation note only, patient not contacted ASSESSMENT Rheumatology monitoring labs completed at an external lab on 02/25/23 were reviewed per Rheumatology division parameters. Labs reviewed: ALT, AST, creatinine, hemoglobin, leukocytes, platelets External labs were entered into Labs Tab and sent for scanning. Labs Tab of Chart Review PLAN Patient to continue with current plan of care. documented in this encounter Plan of Treatment Not on file documented as of this encounter Visit Diagnoses Not on filedocumented in this encounter Additional Health Concerns Infection Onset Date Last Indicated Resolved Time Protective Environment 08/17/2022 08/17/2022 documented as of this encounter Care Teams Thermit Welding Machine Operator Relationship Specialty Start Date End Date Elsewhere, Pcp PCP - General Internal Medicine 11/20/21 documented as of this encounter
--- OUTSIDE RECORDS SUMMARY | 2023-06-05 09:21 | XMS_ITS | Referral Summary ---
Author Name Unknown Organization [facility] Address [address] [place] [address] Care Team Providers Care Bull Riveter Name Role Phone Elsewhere, Pcp Primary Care Provider Unavailabl e Source Comments Patient records contain information from all sites at [facility]. For routine questions regarding patient records, call [phone] during business hours, M-F 8:00 AM - 5:00 PM Central Time. Record requests for emergency care only can be directed to [phone] at any time.[facility] Encounters Date Type Department Care Team Description 04/28/2023 Clinical Communication Division of Rheumatology in [place], [place] [address] [place] [address] El Aldana, EVE, C.N.P. 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 1 to 4 times per year 11/21/2021 Do you belong to any clubs o r organizations such as catholic groups, unions, fraternal or athletic groups, or [...] hard at all 11/21/2021 [facility] - Occupational Stress Questionnaire [...] place to sleep or slept in a chcf (including now)? No 11/21/2021 Nutrition Answer Date [...] Master's degree (e.g., MA, MS, Sariah, MEd, PRE CERTIFICATION SPECIALIST, OFE) 12/22/2018 Sex and Gender Information [...] 12/23/2018 3:41 PM CDT Plan of Treatment Not on file Medical Devices Implanted Type Area Station Cleaning Porter Device Identifier Shelf Expiration Date Model / Serial / Lot Hardware E.G. Pins/Screws/Mushtaq s Hardware e.g. pins/screws /rods N/A: Mouth Screw Biomet 3.5 Hex Lock 4.75 X 20 - Simmons [id number] Implanted:Qty: 1 on 06/15/2016 Hardware e.g. pins/screws /rods Other/Legacy - See Implant Description BioMet Description:Device Manufactu rer - [employer] Body Location - Other. Left. Device Status Text - [id number]. Conversions - Default Historical Implant Device Implanted:06/15 (Quantity not on file) Hip Implant Right: Hip Description:Body Location - Hip R. Device Status Text - Hip Imp. Conversions - Default Historical Implant Device Implanted:06/15 (Quantity not on file) Knee Implant Left: Knee Description:Body Location - Knee L. Device Status Text - Knee Imp. Screw Biomet 3.5 Non-Lock 4.75 X 25 - Simmons [id number] Implanted:Qty: 1 on 06/15/2016 Shoulder Implant Other/Legacy - See Implant Description BioMet Description:Device Manufactu rer - [employer]. Body Location - Other. Left. Device Status Text - [id number]. Procedures Procedure Name Priority Date/Time Associated Diagnosis Comments ASPARTATE AMINOTRANSFERASE (AST), S/P Routine 04/27/2023 CREATININE WITH EGFR, S/P Routine 04/27/2023 CBC WITH DIFFERENTIAL, B Routine 04/27/2023 from Last 3 Months Results * (ABNORMAL) CBC with Differential, Blood (04/27/2023) EXT Platelet Count 261 140 - 440 [facility] EXT Neutrophils 9.5(A) 1.7 - 7 [facility] EXT Hemoglobin 12.7 12 - 16 [facility] EXT White Blood Cell (WBC) Count 11.8(A) 4.5 - 11.0 [facility] Blood (Blood, Venous) El Aldana APRN, C.N.P. LAB BLOOD AD D-ON Performing Organization Address City/[facility]/ZIP Co de Phone Number [facility] [address] [place] [address], [facility] [phone] * AST (Aspartate Aminotransferase) (04/27/2023) EXT AST 30 12 - 35 [facility] Blood (Blood, Venous) El Aldana APRN, C.N.P. LAB BLOOD AD D-ON [facility] [address] [place] [address], [facility] [phone] * Creatinine with Estimated GFR (04/27/2023) EXT Creatinine 0.8 0.5 - 1.5 mg/dL [facility] Blood (Blood, Venous) El Aldana APRN, C.N.P. LAB BLOOD AD D-ON [facility] [address] [place] [address], [facility] [phone] from Last 3 Months Additional Health Concerns Infection Onset Date Last Indicated Protective Environment 08/17/2022 3 Advance Directives For more information, please contact: [phone] Documents on File Type Date Recorded Patient Energy Trader Expl anation Advance Directives 11/21/2021 5:50 PM POLS T/MOLST Advance Directives 07/10/2015 12:00 AM Ashly luong document. See document viewer. Care Teams Bull Riveter Relationship Specialty Start Date End Date Elsewhere, Pcp PCP - General Internal Medicine 11/20/21
--- OUTSIDE RECORDS SUMMARY | 2023-06-05 09:22 | XMS_ITS | Encounter Summary ---
Author Name Unknown Organization [facility] Address [address] [place] [address] Care Team Providers Care 7Th Grade Teacher Name Role Phone Elsewhere, Pcp Primary Care Provider Unavailabl e Reason for Visit * Reason Comments Med Refill Encounter Details Date Type Department Care Team (Late st Contact Info) Description 06/04/2022 Refill Division of Rheumatology in [place], [place] [address] [place] [phone] El Aldana, SIGN ERECTOR AND REPAIRER, C.N.P. [address] [place] [address] Med Refill Social History Tobacco Use Types [...] often do you attend chur ch or baptist services? 1 to 4 times per year 11/21/2021 Do you belong to any clubs o r organizations such as bahai groups, unions, fraternal or athletic groups, or [...] place to sleep or slept in a mcc (including now)? No 11/21/2021 Nutrition Answer Date [...] Master's degree (e.g., MA, MS, Sariah, MEd, MOTION STUDY TECHNICIAN, OFE) 12/22/2018 Sex and Gender Information Value Date Recorded Sex Assigned at Female 11/21/2021 2:31 PM CDT Gender Identity Female 11/22/2018 10:59 PM CDT Sexual Orientation Straight 11/22/2018 10 :59 PM CDT documented as of this encounter Miscellaneous Notes * Telephone Encounter - Nhi Lai, R.N. - 06/05/2022 2:48 PM CST Prescription renewal request for folic acid received from pharmacy. HISTORY OF PRESENT ILLNESS Last Rheum visit: 11/21/21 with El Aldana APRN, PIOTR Future office visit: ordered, not yet scheduled Last monitoring labs/eye exam: Not required. Prescription request matches current plan of care. Prescription request matches a current prescription in the Medication List. Exclusion criteria: None ASSESSMENT/PLAN Prescription request renewed per nursing protocol. TIONAL SKILLS TUTOR * Telephone Encounter - Brittany Francisco - 06/04/2022 9:33 AM FUNCTIONAL SKILLS TUTOR [facility] faxed refill request for folic acid. TIONAL SKILLS TUTOR documented in this encounter Plan of Treatment Not on file documented as of this encounter Visit Diagnoses Diagnosis Lupus Erythematosus documented in this encounter Care Teams 7Th Grade Teacher Relationship Specialty Start Date End Date Elsewhere, Pcp PCP - General Internal Medicine 11/20/21 documented as of this encounter
--- OUTSIDE RECORDS SUMMARY | 2023-06-05 09:22 | XMS_ITS | Encounter Summary ---
Author Name Unknown Organization [facility] Address [address] [place] [address] Care Team Providers Care Rn Imcu Name Role Phone Elsewhere, Pcp Primary Care Provider Unavailabl e Reason for Visit * Reason Comments Med Refill Encounter Details Date Type Department Care Team (Late st Contact Info) Description 05/28/2022 Refill Division of Rheumatology in [place], [place] [address] [place] [phone] El Aldana, MANUAL ARTS THERAPY TEACHER, C.N.P. [address] [place] [address] Med Refill Social History Tobacco Use Types [...] any clubs o r organizations such as jain groups, unions, fraternal or athletic groups, or [...] and heating? Not hard at all 11/21/2021 [facility] ional Health - Occupational Stress [...] Master's degree (e.g., MA, MS, Sariah, MEd, BYPRODUCTS MAKER, OFE) 12/22/2018 Sex and Gender Information Value Date Recorded Sex Assigned at Female 11/21/2021 2:31 PM CDT Gender Identity Female 11/22/2018 10:59 PM CDT Sexual Orientation Straight 11/22/2018 10 :59 PM CDT documented as of this encounter Miscellaneous Notes * Telephone Encounter - Zuri Robert, RCorazonNCorazon - 05/28/2022 10:38 AM CST Prescription renewal request for methotrexate received from pharmacy. HISTORY OF PRESENT ILLNESS Last Rheum visit: 11/21/21 with El Aldana APRN, PIOTR Future office visit: ordered, not yet scheduled Last monitoring labs/eye exam: 11/21/21: outside protocol parameters. Labs needed Prescription request matches current plan of care. Prescription request matches a current prescription in the Medication List. Exclusion criteria: None ASSESSMENT/PLAN Prescription request denied due to second consecutive delinquency for medication monitoring with reminders given. Patient contacted to inform them of reasoning for Rx denial. TRUCTION CONTROLLER documented in this encounter Plan of Treatment Not on file documented as of this encounter Visit Diagnoses Not on filedocumented in this encounter Care Teams Rn Imcu Relationship Specialty Start Date End Date Elsewhere, Pcp PCP - General Internal Medicine 11/20/21 documented as of this encounter
--- OUTSIDE RECORDS SUMMARY | 2023-06-05 09:22 | XMS_ITS | Encounter Summary ---
Author Name Unknown Organization [facility] Address [address] [place] [address] Care Team Providers Care Sanitarian Inspector Name Role Phone Elsewhere, Pcp Primary Care Provider Unavailabl e Reason for Visit * Reason Onset Date Comments Med Question 06/05/2022 ? Switch back to pills Encounter Details Date Type Department Care Team (Latest Contact Info) Description 06/05/2022 Clinical Communication Division of Rheumatology in [place], [place] [address] [place] [phone] El Aldana, EVE, C.N.P. [address] [place] [address] Med Question (? Switch back to pills ) Social History Tobacco Use Types Packs/Day Years [...] any clubs o r organizations such as yarsanism groups, unions, fraternal or athletic groups, or [...] and heating? Not hard at all 11/21/2021 [facility] - Occupational Stress Questionnaire Answer [...] Master's degree (e.g., MA, MS, Sariah, MEd, SITE SUPERVISOR, OFE) 12/22/2018 Sex and Gender Information Value Date Recorded Sex Assigned at Female 11/21/2021 2:31 PM CDT Gender Identity Female 11/22/2018 10:59 PM CDT Sexual Orientation Straight 11/22/2018 10 :59 PM CDT documented as of this encounter Miscellaneous Notes * Telephone Encounter - Mickey Ramirez R.N. - 06/17/2022 8:59 AM BLAST HOLE DRILLER Portal message sent, see 06/11/22 message. T HOLE DRILLER * Telephone Encounter - Candice Victor R.N. - 06/11/2022 8:35 AM BLAST HOLE DRILLER Patient online portal message sent to patient. T HOLE DRILLER * Telephone Encounter - Zaira Lund - 06/10/2022 4:43 PM BLAST HOLE DRILLER Pt called to schedule wanted to check on the medication change- from injectable back to pill form of methotrexate She is out of the medication and will need refills of pill form or if she is to continue on injections she just needs to know so she can get it ordered Please advise Thank you Zaira T HOLE DRILLER documented in this encounter Plan of Treatment Not on file documented as of this encounter Visit Diagnoses Not on filedocumented in this encounter Care Teams Sanitarian Inspector Relationship Specialty Start Date End Date Elsewhere, Pcp PCP - General Internal Medicine 11/20/21 documented as of this encounter
--- OUTSIDE RECORDS SUMMARY | 2023-06-05 09:22 | XMS_ITS | Encounter Summary ---
Author Name Unknown Organization [facility] Address [address] [place] [address] Care Team Providers Care Package Dye Stand Loader Name Role Phone Elsewhere, Pcp Primary Care Provider Unavailabl e Reason for Visit * Reason Comments Med Refill Encounter Details Date Type Department Care Team (Late st Contact Info) Description 07/03/2022 Refill Division of Rheumatology in [place], [place] [address] [place] [phone] El Aldana, CINNAMON GRINDER, C.N.P. [address] [place] [address] Med Refill Social History Tobacco Use Types [...] often do you attend chur ch or samaritan services? 1 to 4 times per year 11/21/2021 Do you belong to any clubs o r organizations such as holiness groups, unions, fraternal or athletic groups, or [...] and heating? Not hard at all 11/21/2021 [facility] Occup[facility] ional Health - Occupational [...] Master's degree (e.g., MA, MS, Sariah, MEd, MARKETING COMMUNICATIONS MANAGER, OFE) 12/22/2018 Sex and Gender Information Value Date Recorded Sex Assigned at Female 11/21/2021 2:31 PM CDT Gender Identity Female 11/22/2018 10:59 PM CDT Sexual Orientation Straight 11/22/2018 10 :59 PM CDT documented as of this encounter Miscellaneous Notes * Telephone Encounter - Jade Gibbs M.S.Magdalena., R.N., C.M.S.R.N. - 07/03/2022 3:22 PM CST Prescription renewal request for prednisone received from pharmacy. HISTORY OF PRESENT ILLNESS Last Rheum visit: 11/21/21 with El Aldana APRN, CNP Future office visit: 08/10/22 Last monitoring labs/eye exam: Not required. Prescription request matches current plan of care. Prescription request matches a current prescription in the Medication List. Exclusion criteria: None ASSESSMENT/PLAN Prescription request pended for provider review due to patient took incorrect dosing as she ran outof 1 mg tablet. Patient takes 7mg daily. Needs a refill of both 5 mg and 1 mg tablet. Per POM, patient ran out of 1 mg tablets, so took half of 5 mg instead for total of 7.5 mg. Will notify provider to be aware. Electronically signed by Jade Gibbs M.S.N., RCorazonNCorazon, EvieSCorazonRCorazonNCorazon at 07/03/2022 3:32 PM IT ENGINEER * Telephone Encounter - Xenia Boss R.N. - 07/03/2022 12:20 PM CST Portal message sent to patient to clarify Prednisone amount needed. Should have one month left of 5mg tablets. Will clarify if needs a flare dosing. ENGINEER documented in this encounter Plan of Treatment Not on file documented as of this encounter Visit Diagnoses Diagnosis Lupus Systemic Erythematosus (HCC) documented in this encounter Care Teams Package Dye Stand Loader Relationship Specialty Start Date End Date Elsewhere, Pcp PCP - General Internal Medicine 11/20/21 documented as of this encounter
--- OUTSIDE RECORDS SUMMARY | 2023-06-05 09:22 | XMS_ITS | Encounter Summary ---
Author Name Unknown Organization [facility] Address [address] [place] [address] Care Team Providers Care Client Support Associate Name Role Phone Elsewhere, Pcp Primary Care Provider Unavailabl e Reason for Visit * Reason Comments Med Refill Encounter Details Date Type Department Care Team (Late st Contact Info) Description 07/22/2022 Refill Division of Rheumatology in [place], [place] [address] [place] [phone] Brittany Jauregui, EVE, C.N.P., M.S. [address] [place] [address] Med Refill Social History Tobacco Use Types [...] often do you attend chur ch or synagogue services? 1 to 4 times per year [...] Master's degree (e.g., MA, MS, Sariah, MEd, HAND BULLDOZER, OFE) 12/22/2018 Sex and Gender Information Value Date Recorded Sex Assigned at Female 11/21/2021 2:31 PM CDT Gender Identity Female 11/22/2018 10:59 PM CDT Sexual Orientation Straight 11/22/2018 10 :59 PM CDT documented as of this encounter Miscellaneous Notes * Telephone Encounter - Lopez Bojorquez RCorazonN. - 07/27/2022 11:20 AM CDT Resent to [facility] in [place]. * Telephone Encounter - Brittany Francisco - 07/27/2022 11:00 AM CDT [facility] sent a fax asking that this refilled with them, as patient has moved rx. * Telephone Encounter - Xenia Boss R.N. - 07/27/2022 9:04 AM CDT Patient message dated 06/11/22 informed patient to wait for change until office visit on 08/10/2022. Provider did state ok to change to oral on 06/15/22 as part of 06/05/22 communications. Will pend to provider as oral. * Telephone Encounter - Jade Gibbs M.S.N., Kimberli, CCorazonM.SCorazonRCorazonNCorazon - 07/24/2022 10:14 AM CDT Prescription renewal request for methotrexate received from pharmacy. HISTORY OF PRESENT ILLNESS Last Rheum visit: 11/21/21 with El Aldana APRN, CNP Future office visit: 08/10/22 Last monitoring labs/eye exam: 06/03/22: within protocol parameters. Prescription request does not match current plan of care. Prescription request matches a current prescription in the Medication List. Exclusion criteria: None ASSESSMENT/PLAN Prescription request on hold. Portal sent to patient. Will check with patient if she still plans onswitching to oral or continue on injectable MTX. documented in this encounter Plan of Treatment Not on file documented as of this encounter Visit Diagnoses Diagnosis Lupus Erythematosus documented in this encounter Care Teams Client Support Associate Relationship Specialty Start Date End Date Elsewhere, Pcp PCP - General Internal Medicine 11/20/21 documented as of this encounter
--- OUTSIDE RECORDS SUMMARY | 2023-06-05 09:22 | XMS_ITS | Encounter Summary ---
Author Name Unknown Organization [facility] Address [address] [place] [address] Care Team Providers Care Employee Health Nurse Name Role Phone Elsewhere, Pcp Primary Care Provider Unavailabl e Reason for Visit * Reason Onset Date Comments Lab Monitoring 06/08/2022 06/03/22 Encounter Details Date Type Department Care Team (Latest Contact Info) Description 06/08/2022 Clinical Communication Division of Rheumatology in [place], [place] [address] [place] [address] El Aldana, EVE, C.N.P. [address] [place] [address] Lab Monitoring (06/03/22) Social History Tobacco Use Types Packs/Day Years [...] often do you attend chur ch or mormonism services? 1 to 4 times per year 11/21/2021 Do you belong to any clubs o r organizations such as baptism groups, unions, fraternal or athletic groups, or [...] and heating? Not hard at all 11/21/2021 [facility] - Occupational [...] Master's degree (e.g., MA, MS, Sariah, MEd, SUPERIOR COURT CLERK, OFE) 12/22/2018 Sex and Gender Information Value Date Recorded Sex Assigned at Female 11/21/2021 2:31 PM CDT Gender Identity Female 11/22/2018 10:59 PM CDT Sexual Orientation Straight 11/22/2018 10 :59 PM CDT documented as of this encounter Miscellaneous Notes * Telephone Encounter - Candice Victor R.N. - 06/09/2022 7:53 AM REAL ESTATE INVESTOR ASSESSMENT Rheumatology monitoring labs completed at an external lab on 06/03/2022 were reviewed per Rheumatology division parameters. Labs reviewed: absolute neutrophil count, AST, creatinine, hemoglobin, leukocytes, platelets External labs were entered into Labs Tab and sent for scanning. PLAN Patient to continue with current plan of care. ESTATE INVESTOR documented in this encounter Plan of Treatment Not on file documented as of this encounter Procedures Procedure Name Priority Date/Time Associated Diagnosis Comments CBC WITH DIFFERENTIAL, B Routine 06/03/2022 ASPARTATE AMINOTRANSFERASE (AST), S/P Routine 06/03/2022 CREATININE WITH EGFR, S/P Routine 06/03/2022 documented in this encounter Results * (ABNORMAL) AST (Aspartate Aminotransferase) (06/03/2022) Pathologist [facility] EXT AST 70(A) 12 - 35 [facility] Blood (Blood, Venous) El Aldana APRN, C.N.P. LAB BLOOD AD D-ON Performing Organization Address [facility] Co de Phone Number [facility] [address] [place] [address] * Creatinine with Estimated GFR (06/03/2022) [facility] EXT Creatinine 0.7 0.5 - 1.5 mg/dL [facility] Blood (Blood, Venous) El Aldana APRN C.N.P. LAB BLOOD AD D-ON Performing Organization Address [facility]/ZIP Co de Phone Number [facility] [address] [place] [address] * (ABNORMAL) CBC with Differential, Blood (06/03/2022) EXT Platelet Count 400 140 - 440 [facility] EXT Neutrophils 9.4(A) 1.7 - 7 [facility] EXT Hemoglobin 11.2(A) 12 - 16 [facility] EXT White Blood Cell (WBC) Count 13.1(A) 4.5 - 11.0 [facility] Blood (Blood, Venous) Sabino Scott APRNNArmida LAB BLOOD AD D-ON [facility] [address] [place] [address] documented in this encounter Visit Diagnoses Not on filedocumented in this encounter Care Teams Employee Health Nurse Relationship Specialty Start Date End Date Elsewhere, Pcp PCP - General Internal Medicine 11/20/21 documented as of this encounter
[2023-06-05 09:27] LABS: HCO3 VBG 29 mmol/L (21-28); Lactate* 1.3 mmol/L (0.5-1.9); PCO2 VBG 40 mmHG (40-50); PO2 VBG 38.5 mmHG (25-47); pH VBG 7.465 (7.32-7.43)
[2023-06-05 09:33] LABS: Basophils Absolute Auto 0.04 K/uL (0.00-0.30); Basophils Percent Auto 0.5 % (0.0-3.0); Eosinophils Absolute Auto 0.21 K/uL (0.00-0.50); Eosinophils Percent Auto 2.5 % (0.0-7.0); Hematocrit 41.5 % (33.0-51.0); Hemoglobin* 12.7 gm/dL (12.0-16.0); Immature Granulocytes Abs Auto 0.01 K/uL (0.00-0.30); Immature Granulocytes Pct Auto 0.1 %; Lymphocytes Absolute Auto 2.02 K/uL (0.90-2.90); Lymphocytes Percent Auto 23.6 % (20-44); Mean Corpuscular HGB Conc 31 gm/dL (32-36); Mean Corpuscular Hemoglobin 29 pg (26-34); Mean Corpuscular Volume 94 fL (80-100); Monocytes Percent Auto 11.7 % (0.0-11.0); Neutrophils Absolute Auto 5.28 K/uL (1.7-7.0); Neutrophils Percent Auto 61.6 % (42.0-72.0); Platelet Count* 346 K/uL (140-440); RDW Coefficient of Variation % 15.8 % (11.5-15.5); White Blood Count* 8.56 K/uL (4.50-11.00)
[2023-06-05 09:43] LABS: Slide Review Reflex No
[2023-06-05 09:49] LABS: PCR FLU A Negative PCR FLU A (Negative); PCR FLU B Negative PCR FLU B (Negative); PCR RSV Negative PCR RSV (Negative); SARS PCR* Negative SARS-CoV-2 (Negative)
[2023-06-05 09:51] LABS: INR 1.85 (0.91-1.10); Prothrombin Time 22.7 Seconds
[2023-06-05] MEDS: LACTATED RINGERS 1000 ML IV (09:52)
[2023-06-05] MEDS: cefTRIAXone 1 GM in 0.9 % SODIUM CHLORIDE Mini-bag 100 ML IVPB (09:52)
[2023-06-05] MEDS: HYDROCORTISONE SOD SUCCINATE 50 MG/ML inj 100 MG IVP (09:52)
[2023-06-05 10:01] LABS: Chloride* 105 mmol/L (96-114)
[2023-06-05 10:02] LABS: Potassium* 3.4 mmol/L (3.6-5.1); Sodium* 142 mmol/L (135-149)
[2023-06-05 10:04] LABS: Creatinine* 0.8 mg/dL (0.5-1.5); Est. Creatinine Clearance* 33.86; Estimated Glomerular Filt Rate 74 ml/min
[2023-06-05 10:05] LABS: Anion Gap 11 mEq/L (7-15); Blood Urea Nitrogen* 21 mg/dL (7-30); Calcium* 9.2 mg/dL (8.4-10.6); Carbon Dioxide* 26 mmol/L (20-32); Glucose* 77 mg/dL (60-115)
[2023-06-05] MEDS: ACETAMINOPHEN 500 MG TABLET 1000 MG PO (10:17)
[2023-06-05] MEDS: LORazepam 0.5 MG TABLET PO (10:17)
--- NOTE | 2023-06-05 10:23 | CRLHL7_ITS ---
For Patients: As a result of the Century Cures Act, medical imaging exams and procedure reports are released immediately into your electronic medical record. You may view this report before your referring provider. If you have questions, please contact your health care provider. HISTORY: Left leg redness. TECHNIQUE: Ultrasound of the left lower extremity deep veins using kirby-scale, color Doppler, and spectral Doppler. COMPARISON: None. FINDINGS: Left: Common femoral, femoral, and popliteal veins are patent and compressible with normal response to augmentation. Deep femoral vein is patent and compressible. Posterior tibial vein is patent and compressible with normal response to augmentation. Peroneal vein is patent and compressible. Greater saphenous vein is patent and compressible at the junction with the femoral vein. - Right: Common femoral vein is patent and compressible with normal response to augmentation. IMPRESSION: No left lower extremity DVT. Dictated by Katja Barahona MD @ 06/05/2023 12:47:52 PM (Electronically Signed)
--- NOTE | 2023-06-05 14:07 | PM.IMHP1 ---
Hospitalist- H&P: HPI History of Present Illness Date Seen: 06/05/23 Chief complaint: weakness Narrative: Shilpi Frost is a 78 year old female past medical history significant for lower extremity edema, atrial fibrillation on chronic anticoagulation, GI bleed, tubular adenoma, hypertension, chronic pain, GERD, anemia of chronic disease, recurrent cellulitis, dilated cardiomyopathy, SLE on chronic steroids is admitted to the medical floor from the ED for further management suspected left lower extremity cellulitis. Patient is awake and alert on exam. She does not recall the events of the day but suspect she may have been difficult. She had been reported by staff to be more confused this morning. There was concern that the redness of her lower extremities was worse than normal as well as swelling of the left lower extremity noted. Patient denies headaches or dizziness. Confusion from earlier this morning has improved (oriented to person and time -month/year). Denies recent fevers chills or sweats. Denies chest pain or shortness of breath. Denies recent cough or cold symptoms. Denies sore throat or ear pain. Denies recent abdominal pain, nausea or vomiting. Denies change in stools. Denies urinary symptoms. Admits that her left lower extremity redness is likely worse than normal. Also noted it was swollen more than normal a couple of days ago. Right lower extremity chronic appearance per patient. In the ED, patient was started on ceftriaxone and vancomycin for concern of cellulitis. An ultrasound of the left lower extremity was completed to rule out DVT which was negative. CT of the head was unremarkable for acute findings. A CT abdomen was obtained for concern of abdominal pain on palpation, without current complaint of abdominal pain, without acute findings. Review of Systems Narrative: REVIEW OF SYSTEMS: Complete review of systems performed and negative unless otherwise stated in HPI or below. [facility] Medical History (Updated 06/05/23 @ 15:02 by Betty Amezquita PA-C) Hypothyroidism ?E03.9 - Hypothyroidism, unspecified (ICD-10) Left leg cellulitis ?L03.116 - Cellulitis of left lower limb (ICD-10) Systemic lupus erythematosus ?M32.9 - Systemic lupus erythematosus, unspecified (ICD-10) Anemia ?D64.9 - Anemia, unspecified (ICD-10) Psoriasis ?L40.9 - Psoriasis, unspecified (ICD-10) Anemia ?D64.9 - Anemia, unspecified (ICD-10) Yeast dermatitis ?B37.2 - Candidiasis of skin and nail (ICD-10) Environmental allergies ?Z91.09 - Other allergy status, other than to drugs and biological substances (ICD-10) Osteoarthritis of left hip ?M16.12 - Unilateral primary osteoarthritis, left hip (ICD-10) Osteoarthritis of right knee ?M17.11 - Unilateral primary osteoarthritis, right knee (ICD-10) Osteoarthritis of right shoulder ?M19.011 - Primary osteoarthritis, right shoulder (ICD-10) Urethral caruncle ?N36.2 - Urethral caruncle (ICD-10) Weakness ?R53.1 - Weakness (ICD-10) Urinary tract infection ?N39.0 - Urinary tract infection, site not specified (ICD-10) Unsteady gait ?R26.81 - Unsteadiness on feet (ICD-10) Tubular adenoma ?D36.9 - Benign neoplasm, unspecified site (ICD-10) Spinal stenosis ?M48.00 - Spinal stenosis, site unspecified (ICD-10) 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81 - Other malaise (ICD-10) Physical debility ?R53.81 - Other malaise (ICD-10) Peripheral edema (05/12/10) ?R60.9 - Edema, unspecified (ICD-10) Osteopenia (05/26/11) ?M85.80 - Other specified disorders of bone density and structure, unspecified site (ICD-10) Nonspecific colitis ?K52.9 - Noninfective gastroenteritis and colitis, unspecified (ICD-10) Long-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 - Immunodeficiency due to drugs (ICD-10) ?T38.0X5A - Adverse effect of glucocorticoids and synthetic analogues, initial encounter (ICD-10) ?Z79.52 - group home (current) use of systemic steroids (ICD-10) Hypokalemia ?E87.6 - Hypokalemia (ICD-10) Hypertension (08/16/12) ?I10 - Essential (primary) hypertension (ICD-10) Hyperlipidemia ?E78.5 - Hyperlipidemia, unspecified (ICD-10) High C-reactive protein ?R79.82 - Elevated C-reactive protein (CRP) (ICD-10) Health care directive on file (07/05/15) ?Z78.9 - Other specified health status (ICD-10) Gastroesophageal reflux disease (04/11/10) ?K21.9 - Gastro-esophageal reflux disease without esophagitis (ICD-10) Dilated cardiomyopathy (05/12/10) ?I42.0 - Dilated cardiomyopathy (ICD-10) Dilated bile duct ?K83.8 - Other specified diseases of biliary tract (ICD-10) Depression (08/16/12) ?F32.A - Depression, unspecified (ICD-10) Constipation ?K59.00 - Constipation, unspecified (ICD-10) Colitis ?K52.9 - Noninfective gastroenteritis and colitis, unspecified (ICD-10) Chronic pain syndrome ?G89.4 - Chronic pain syndrome (ICD-10) Chronic pain ?G89.29 - Other chronic pain (ICD-10) Cellulitis ?L03.90 - Cellulitis, unspecified (ICD-10) Atrial fibrillation with rapid ventricular response ?I48.91 - Unspecified atrial fibrillation (ICD-10) Anxiety (04/11/10) ?F41.9 - Anxiety disorder, unspecified (ICD-10) Anticoagulation goal of INR 2 to 3 ?Z51.81 - Encounter for therapeutic drug level monitoring (ICD-10) ?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 (ICD-10) Anemia of chronic disease ?D63.8 - Anemia in other chronic diseases classified elsewhere (ICD-10) Abnormal liver function tests ?R79.89 - Other specified abnormal findings of blood chemistry (ICD-10) Long-term (current) use of anticoagulants, INR goal 2.0-3.0 ?Z79.01 - group home (current) use of anticoagulants (ICD-10) Knee osteoarthritis ?M17.10 - Unilateral primary osteoarthritis, unspecified knee (ICD-10) POLST (Physician Orders for Life-Sustaining Treatment) ?Z78.9 - Other specified health status (ICD-10) Irritation of right ear ?H93.8X1 - Other specified disorders of right ear (ICD-10) History of pulmonary embolism (2017) ?Z86.711 - Personal history of pulmonary embolism (ICD-10) History of peptic ulcer ?Z87.11 - Personal history of peptic ulcer disease (ICD-10) History of deep vein thrombosis (DVT) of lower extremity (2017) ?Z86.718 - Personal history of other venous thrombosis and embolism (ICD-10) Head injury with loss of consciousness ?S06.9X9A - Unspecified intracranial injury with loss of consciousness of unspecified duration, initial encounter (ICD-10) Surgical History S/P foot surgery, right (08/28/14) ?Z98.890 - Other specified postprocedural states (ICD-10) 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) ?Z96.619 - Presence of unspecified artificial shoulder joint (ICD-10) Status post lumbar spinal fusion (04/11/10) ?Z98.1 - Arthrodesis status (ICD-10) Status post cervical spinal arthrodesis (09/2017) ?Z98.1 - Arthrodesis status (ICD-10) History of total hip replacement (05/12/10) ?Z96.649 - Presence of unspecified artificial hip joint (ICD-10) History of left knee replacement (05/12/10) ?Z96.652 - Presence of left artificial knee joint (ICD-10) History of hysterectomy (04/11/10) ?Z90.710 - Acquired absence of both cervix and uterus (ICD-10) History of colonoscopy (05/18/19) ?Z98.890 - Other specified postprocedural states (ICD-10) History of cholecystectomy (05/12/10) ?Z90.49 - Acquired absence of other specified parts of digestive tract (ICD-10) Family History Brother Coronary artery disease Father Cancer Social History Narrative: Patient lives at [facility]. Code status is DNR. Healthcare power of deputy county attorney is her daughter Giselle from [place]. She quit smoking many years ago. Has been chewing nicotine gum since then. She does not drink alcohol What is your current living situation?: I presently have a place to live Problems where you live: no known problems Problems where you live details: no known problems In the past 12 months, utilities in danger of being shut off: no In past 12 months, lack of transportation kept you from medical appts, meetings, work, or getting things needed for daily living: no In the past 12 mos, have been you worried that your food would run out before you had money to buy more?: never true In the past 12 mos, the food you bought just didn't last and you didn't have money to buy more?: never true Highest level of school completed/degree received: 12th grade, no diploma Smoking Status: Never smoker Second hand tobacco smoke exposure: No How often do you have a drink containing alcohol: never How often do you have six or more drinks on one occasion: Never AUDIT-C Alcohol total score: 0 Non-prescribed substance use: denies use Caffeine: Yes (4-5 cups daily) How often does anyone, including family, friends and others, physically hurt you: never How often does anyone, including family, friends and others, insult or talk down to you: never How often does anyone, including family, friends and others, threaten you with harm: never How often does anyone, including family, friends and others, scream or curse at you: never Little interest or pleasure in doing things: several days Feeling down, depressed, or hopeless: more than half the days service: No Meds Home Medications and Allergies Home Medications Medication Instructions Recorded Confirmed Type melatonin 3 mg capsule 3 mg PO HS PRN 01/13/22 06/05/23 History hyoscyamine sulfate 0.125 mg 0.125 mg PO Q4H PRN 05/13/23 06/05/23 History sublingual tablet lorazepam 0.5 mg tablet 0.5 mg PO Q4H anxiety 05/13/23 06/05/23 History omeprazole 20 mg capsule,delayed 20 mg PO DAILY 05/13/23 06/05/23 History release potassium chloride 10 mEq 20 meq PO BID 05/13/23 06/05/23 History capsule,extended release prednisone 10 mg tablet 10 mg PO DAILY 05/13/23 06/05/23 History levothyroxine 25 mcg tablet 25 mcg PO DAILY 06/05/23 06/05/23 History loratadine 10 mg tablet 10 mg PO DAILY allergic symptoms 06/05/23 06/05/23 History magnesium oxide 400 mg PO DAILY@12 06/05/23 06/05/23 History mirtazapine 7.5 mg tablet 7.5 mg PO HS 06/05/23 06/05/23 History warfarin 3 mg tablet 1.5 mg PO DAILY 06/05/23 06/05/23 History Allergies Allergy/AdvReac Type Severity Reaction Status Date / Time amitriptyline Allergy Severe disorientat Verified 06/05/23 09:34 ion penicillin V Allergy Severe upset Verified 06/05/23 09:34 stomach and rash perphenazine Allergy Severe disorientat Verified 06/05/23 09:34 ion adhesive Allergy Unknown Unknown Verified 06/05/23 09:34 amoxicillin AdvReac Intermediate Diarrhea Verified 06/05/23 09:34 Tricyclic antidepressant Allergy Severe disorientat Uncoded 06/05/23 09:34 ion Bee venom Allergy Mild swells and Uncoded 06/05/23 09:34 area turns red Sulfa drugs Allergy Unknown Unknown Uncoded 06/05/23 09:34 Clavulanate AdvReac Intermediate Diarrhea Uncoded 06/05/23 09:34 Exam Narrative: Exam Narrative: PHYSICAL EXAM General: Pleasant, conversant, NAD HEENT: Normocephalic, atraumatic, sclera white, EOMI, oral mucosa moist Cardiovascular: RRR, S1S2. No pitting edema RLE Pulmonary: CTA bilaterally without rhonchi, rales, expiratory wheezes. No dyspnea Abdominal: Soft, nondistended, NTTP. No guarding Neurological: Alert, answering questions appropriately other than not oriented to place, cranial nerves intact, no focal findings Extremities: No gross joint deformity or swelling. AROMI. Neurovascularly intact Skin: Warm, dry. Bilateral lower extremities with mild erythema, left lower extremity extending to knee and lower thigh which is not normal. Mild swelling of the left lower extremity. No open wounds noted. Band-Aid over right 1st metatarsal. Const: Vital Signs, click to edit/add: Vital Signs - 24 hr 06/05/23 08:55 06/05/23 09:47 06/05/23 09:52 Temperature 97.7 F Pulse Rate 88 87 Pulse Rate [Pulse Oximeter] 86 Respiratory Rate 18 Blood Pressure 136/62 Blood Pressure [Ri ght Arm] Blood Pressure [Ri ght Upper Arm] 166/84 H Pulse Oximetry 99 95 [facility] 06/05/23 09:53 06/05/23 10:00 06/05/23 10:02 Temperature Pulse Rate 88 89 88 Pulse Rate [Pulse Oximeter] Respiratory Rate Blood Pressure 148/48 H Blood Pressure [Ri ght Arm] Blood Pressure [Ri ght Upper Arm] Pulse Oximetry 93 97 94 [facility] 06/05/23 10:32 06/05/23 11:02 06/05/23 11:33 Temperature Pulse Rate Pulse Rate [Pulse Oximeter] Respiratory Rate Blood Pressure 107/52 L 103/54 L 119/53 L Blood Pressure [Ri ght Arm] Blood Pressure [Ri ght Upper Arm] Pulse Oximetry [facility] 06/05/23 12:28 Temperature 98.5 F Pulse Rate Pulse Rate [Pulse Oximeter] 82 Respiratory Rate 16 Blood Pressure Blood Pressure [Ri ght Arm] 155/95 H Blood Pressure [Ri ght Upper Arm] Pulse Oximetry 95 Oxygen Delivery Me od Room Air Hospitalist - H&P: Result Labs Labs: Short CBC 06/05/23 Range/Units 09:10 WBC 8.56 (4.50-11.00) K/uL Hgb 12.7 (12.0-16.0) gm/dL Hct 41.5 (33.0-51.0) % Plt Count 346 (140-440) K/uL BMP 06/05/23 09:10 Sodium 142 Potassium 3.4 L Chloride 105 Carbon Dioxide 26 BUN 21 Creatinine 0.8 Glucose 77 Calcium 9.2 ECG Attestation: I personally reviewed and interpreted this ECG as follows: ECG interpretation date: 06/05/23 Interpretation: NSR, septal infarct age undetermined, QTC 458, ventricular rate 83 Imaging Venous US: Attestation: I have reviewed the pertinent imaging results. Radiologist's impression: Ultrasound of the left lower extremity deep veins using kirby-scale, color Doppler, and spectral Doppler. COMPARISON: None. FINDINGS: Left: Common femoral, femoral, and popliteal veins are patent and compressible with normal response to augmentation. Deep femoral vein is patent and compressible. Posterior tibial vein is patent and compressible with normal response to augmentation. Peroneal vein is patent and compressible. Greater saphenous vein is patent and compressible at the junction with the femoral vein. - Right: Common femoral vein is patent and compressible with normal response to augmentation. IMPRESSION: No left lower extremity DVT. CT scan - head: Attestation: I have reviewed the pertinent imaging results. Radiologist's impression: CT head without intravenous contrast June 22, 2019. TECHNIQUE: CT head without intravenous contrast; coronal and sagittal reformats. 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 No intracranial hemorrhage. No mass lesions. No evidence of shift of the midline structures. Age-appropriate brain atrophy. The calvarium is unremarkable. Instrumentation in the cervical spine and base of the skull without any interval change. IMPRESSION: 1. No acute intracranial pathology. 2. 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 CT scan - abdomen: Attestation: I have reviewed the pertinent imaging results. Radiologist's impression: CT abdomen and pelvis with intravenous contrast 03/23/2023. TECHNIQUE: CT abdomen and pelvis with intravenous contrast; coronal and sagittal reformats. FINDINGS: No abnormal intra pulmonary nodular densities through the lung bases. No evidence of pleural effusion. Platelike atelectasis lower lobe left lung; stable when compared to 03/23/2023. No focal hepatic or splenic pathology. No pancreatic pathology. Status post cholecystectomy. No adrenal pathology. No kidney stones or obstructive uropathy. No retroperitoneal lymphadenopathy. No evidence of abdominal or pelvic ascites. No pneumoperitoneum or intestinal obstruction. Diverticulosis sigmoid colon without any CT evidence of diverticulitis or abscess. 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 Instrumentation lower lumbar spine. Impression: 1. No acute pathology either in the abdomen and pelvis. 2. Complete resolution of the small bowel edema and thickening when compared to the previous study. 3. 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 4. Status post cholecystectomy. 5. Instrumentation lumbosacral spine. Assessment and Plan Assessment and plan (1) Left leg cellulitis: Problem comment: -with history of previous. Afebrile, no leukocytosis, lactate normal, vitally stable. Previous confusion resolved -start cefazolin q.8 hours. Receive 1 dose vancomycin in ED, will defer further dosing -gentle IV hydration x1 L -BC x2 pending, UA/UC pending, MRSA pending Status: Acute (2) Systemic lupus erythematosus: Problem comment: -continue oral prednisone, received burst dose steroid in ED. no longer taking methotrexate Status: Acute (3) Long-term current use of steroids: Problem comment: -continue home dose 10 mg daily, received IV burst dose in ED Status: Acute (4) Atrial fibrillation: Problem comment: s/p cardioversion March 2023 -continue metoprolol and warfarin to be dosed by pharmacy Status: Acute (5) Anemia of chronic disease: Problem comment: -Hemoglobin 12.7 on admission Status: Acute (6) Hypertension: Problem comment: -continue home medications, monitoring Status: Acute (7) Hypokalemia: Problem comment: -mild, 3.4, continue home supplement and monitor Status: Acute (8) Hypothyroidism: Problem comment: -continue levothyroxine. TSH ordered given acute confusion earlier today Status: Acute Plan Continue IV antibiotics. Possible discharge 2-3 days pending clinical improvement
[2023-06-05] MEDS: CEFAZOLIN 1 GM inj IVP ×2 (15:16→22:34)
[2023-06-05] MEDS: HYDROCODONE-ACETAMIN 5-325 MG 1 TAB PO (15:17)
[2023-06-05] MEDS: buPROPion XL 150 MG TABLET PO (15:17)
[2023-06-05] MEDS: LACTATED RINGERS 1000 ML 1,000 ML 75 ML IV (15:17)
[2023-06-05] MEDS: LOSARTAN POTASSIUM 50 MG TABLET 25 MG PO (15:17)
[2023-06-05] MEDS: METOPROLOL SUCCINATE (XL) 25 MG TAB PO (15:18)
[2023-06-05] MEDS: FUROSEMIDE 40 MG TABLET PO (15:18)
[2023-06-05] MEDS: HYDROXYCHLOROQUINE 200 MG TABLET PO (15:19)
[2023-06-05] MEDS: FLUCONAZOLE 150 MG TABLET PO (16:19)
[2023-06-05] MEDS: WARFARIN 3 MG TABLET PO (17:27)
[2023-06-05 18:42] LABS: Appearance Urine Clear (Clear); Bilirubin Urine Negative (Negative); Blood Urine Negative (Negative); Color Urine Yellow (Yellow); Glucose Urine Negative (Negative); Ketones Urine Trace (Negative); Leukocyte Esterase Urine Negative (Negative); Nitrite Urine Negative (Negative); Protein Urine Negative (Negative); Specific Gravity Urine 1.015 (1.000-1.030); Urobilinogen Urine 0.2 (0.2-1.0)
[2023-06-05 19:19] LABS: RBC Urine 0-2 (0-2); WBC Urine 0-2 (0-5)
--- NOTE | 2023-06-05 19:42 | PC.NURSE ---
Admission-- Pleasant and cooperative, alert and oriented patient was admitted to med-surg. VSS and pt is afebrile. SPO2 >90% on RA. She denied any pain. Wheezes noted throughout lung joyner. Telemetry shows NSR with BBB. Left abbott reddened, edematous and warm to touch. Right abbott reddened. Small open wound on right bunion and dressing was changed. Redness noted beneath both breasts as well. Pt up to commode with assist of 2, belt and walker and urinated 600ml this evening. Report to oncoming shift.
[2023-06-05] MEDS: GABAPENTIN 600 MG TABLET 1200 MG PO (20:46)
[2023-06-05] MEDS: MIRTAZAPINE 15 MG TABLET 7.5 MG PO (20:46)
[2023-06-05] MEDS: POTASSIUM CHLORIDE 10 MEQ CAPSULE ER 20 MEQ PO (20:47)
[2023-06-06] VITALS (9 sets, daily range): BP systolic 108–139; BP diastolic 55–69; PULSE 66–78; RESP 16–20; TEMP 36.5–37.2; O2SAT 94–99
[2023-06-06] MEDS: OMEPRAZOLE 20 MG CAPSULE DR PO (06:25)
[2023-06-06] MEDS: CEFAZOLIN 1 GM inj IVP ×3 (06:25→23:09)
[2023-06-06] MEDS: LEVOTHYROXINE 25 MCG TABLET PO (06:25)
--- NOTE | 2023-06-06 06:47 | PC.NURSE ---
pleasant and cooperative. A x 2 with gb and walker to [facility], pt tolerated fair. no c/o pain. VSS.
[2023-06-06 06:53] LABS: Hematocrit 37.6 % (33.0-51.0); Hemoglobin* 11.7 gm/dL (12.0-16.0); Mean Corpuscular HGB Conc 31 gm/dL (32-36); Mean Corpuscular Hemoglobin 29 pg (26-34); Mean Corpuscular Volume 94 fL (80-100); Platelet Count* 301 K/uL (140-440); Red Blood Count 3.99 m/uL (4.00-5.20); White Blood Count* 9.34 K/uL (4.50-11.00)
[2023-06-06 06:55] LABS: Slide Review Reflex No
[2023-06-06 07:02] LABS: Chloride* 108 mmol/L (96-114); Potassium* 3.3 mmol/L (3.6-5.1); Sodium* 141 mmol/L (135-149)
[2023-06-06 07:05] LABS: Anion Gap 7 mEq/L (7-15); Blood Urea Nitrogen* 19 mg/dL (7-30); Carbon Dioxide* 26 mmol/L (20-32); Creatinine* 0.8 mg/dL (0.5-1.5); Est. Creatinine Clearance* 32.23; Estimated Glomerular Filt Rate 74 ml/min
[2023-06-06 07:06] LABS: Calcium* 8.3 mg/dL (8.4-10.6); Glucose* 61 mg/dL (60-115)
--- NOTE | 2023-06-06 07:38 | P.IMPN_ITS ---
Progress Note: A&P Assessment and plan (1) Left leg cellulitis: Problem details: -with history of previous. Afebrile, no leukocytosis, lactate normal, vitally stable. Previous confusion resolved -start cefazolin q.8 hours. Receive 1 dose vancomycin in ED, will defer further dosing -BC x2 NGTD, UA unremarkable, MRSA negative Status: Acute (2) Systemic lupus erythematosus: Problem details: -continue oral prednisone, received burst dose steroid in ED. no longer taking methotrexate Status: Acute (3) Long-term current use of steroids: Problem details: -continue home dose 10 mg daily, received IV burst dose in ED Status: Acute (4) Atrial fibrillation: Problem details: s/p cardioversion March 2023 -continue metoprolol and warfarin to be dosed by pharmacy Status: Acute (5) Anemia of chronic disease: Problem details: -Hemoglobin 12.7 on admission Status: Acute (6) Hypertension: Problem details: -continue home medications, monitoring Status: Acute (7) Hypokalemia: Problem details: -mild, 3.4 on admission, continue home supplement and monitor 06/06: 3.3 today, extra dose 20 mEq this morning, recheck in a.m. Status: Acute (8) Hypothyroidism: Problem details: -continue levothyroxine. TSH 6.23, previous 2.12-5.60. Outpatient follow-up with PCP for recheck and medication management Status: Acute Plan Possible discharge 1-2 days, transitioning to oral antibiotic Time Spent With Patient Total time spent: Total time spent caring for the patient today was 45 minutes. This includes time spent for the visit reviewing the chart, time spent during the visit, time spent after the visit and documentation and planning in coordination of care. Subjective Date Seen: 06/06/23 Interval history: Patients reports feeling well today. Denies headache or dizziness. Denies chest pain shortness breast. Tolerating orals without nausea vomiting. Has no concerns or complaints this morning. No events reported overnight. Exam Narrative: Exam Narrative: PHYSICAL EXAM General: Pleasant, conversant, NAD HEENT: Normocephalic, atraumatic, sclera white, EOMI, oral mucosa moist Cardiovascular: RRR, S1S2. No pitting edema RLE Pulmonary: CTA bilaterally without rhonchi, rales, expiratory wheezes. No dyspnea Abdominal: Soft, nondistended, NTTP. No guarding Neurological: Alert, answering questions appropriately other than not oriented to place, cranial nerves intact, no focal findings Extremities: No gross joint deformity or swelling - outside of chronic arthritic findings. AROMI. Neurovascularly intact Skin: Warm, dry. Bilateral lower extremities with mild erythema, chronic. Left lower extremity erythema and swelling improved. Const: Vital Signs, click to edit/add: Vital Signs - 24 hr 06/05/23 08:55 06/05/23 09:47 06/05/23 09:52 Temperature 97.7 F Pulse Rate 88 87 Pulse Rate [Pulse Oximeter] 86 Respiratory Rate 18 Blood Pressure 136/62 Blood Pressure [Ri ght Arm] Blood Pressure [Ri ght Upper Arm] 166/84 H Pulse Oximetry 99 95 92 Oxygen Delivery Me thod Room Air 06/05/23 09:53 06/05/23 10:00 06/05/23 10:02 Temperature Pulse Rate 88 89 88 Pulse Rate [Pulse Oximeter] Respiratory Rate Blood Pressure 148/48 H Blood Pressure [Ri ght Arm] Blood Pressure [Ri ght Upper Arm] Pulse Oximetry 93 97 94 Oxygen Delivery Me od 06/05/23 10:32 06/05/23 11:02 06/05/23 11:33 Temperature Pulse Rate Pulse Rate [Pulse Oximeter] Respiratory Rate Blood Pressure 107/52 L 103/54 L 119/53 L Blood Pressure [Ri ght Arm] Blood Pressure [Ri ght Upper Arm] Pulse Oximetry [facility] 12:28 Temperature 98.5 F Pulse Rate Pulse Rate [Pulse Oximeter] 82 Respiratory Rate 16 Blood Pressure Blood Pressure [Ri ght Arm] 155/95 H Blood Pressure [Ri ght Upper Arm] Pulse Oximetry 95 Oxygen Delivery Me thod Room Air Labs Labs: Laboratory Results - last 24 hr 06/05/23 06/05/23 08:55 09:10 WBC 8.56 RBC 4.40 Hgb 12.7 Hct 41.5 MCV 94 MCH 29 MCHC 31 L RDW Coeff of Rolo 15.8 H Plt Count 346 Neut % (Auto) 61.6 Lymph % (Auto) 23.6 [place] % (Auto) 11.7 H Eos % (Auto) 2.5 Baso % (Auto) 0.5 Neut # (Auto) 5.28 Lymph # (Auto) 2.02 [place] # (Auto) 1.00 H Eos # (Auto) 0.21 Baso # (Auto) 0.04 Abs Immat Gran (auto) 0.01 Imm/Tot Granulo (auto) 0.1 INR 1.85 H VBG pH 7.465 H VBG pCO2 40 VBG pO2 38.5 VBG HCO3 29 H Sodium 142 Potassium 3.4 L Chloride 105 Carbon Dioxide 26 Anion Gap 11 BUN 21 Creatinine 0.8 Estimated Creat Clear 33.86 Estimated GFR 74 Glucose 77 Lactate 1.3 Calcium 9.2 SARS-CoV-2 (PCR) Negative SARS-CoV-2 Influenza Type A (PCR) Negative PCR FLU A Influenza Type B (PCR) Negative PCR FLU B RSV (PCR) Negative PCR RSV
[2023-06-06 07:50] LABS: Lab Add On Test New Spec Needed
[2023-06-06 08:54] LABS: Prothrombin Time 24.1 Seconds
[2023-06-06] MEDS: GABAPENTIN 600 MG TABLET 1200 MG PO ×2 (09:07→20:34)
[2023-06-06] MEDS: HYDROCODONE-ACETAMIN 5-325 MG 1 TAB PO (09:07)
[2023-06-06] MEDS: FUROSEMIDE 40 MG TABLET PO (09:08)
[2023-06-06] MEDS: LORATADINE 10 MG TABLET PO (09:09)
[2023-06-06] MEDS: buPROPion XL 150 MG TABLET PO (09:09)
[2023-06-06] MEDS: LOSARTAN POTASSIUM 50 MG TABLET 25 MG PO (09:10)
[2023-06-06] MEDS: METOPROLOL SUCCINATE (XL) 25 MG TAB PO (09:10)
[2023-06-06] MEDS: predniSONE 10 MG TABLET PO (09:10)
[2023-06-06] MEDS: POTASSIUM CHLORIDE 10 MEQ CAPSULE ER 20 MEQ PO ×3 (09:11→20:33)
[2023-06-06] MEDS: SODIUM CHLORIDE 0.9 % (FLUSH) 10 ML SYRINGE 5 ML IVF ×4 (09:13→20:34)
--- NOTE | 2023-06-06 10:12 | PC.NURSE ---
Update-- Spoke with nurse Kenney at [facility] for an update. All questions answered.
[2023-06-06] MEDS: NYSTATIN POWDER 1 APPLIC TOPICAL ×2 (12:38→20:33)
[2023-06-06] MEDS: MAGNESIUM OXIDE 400 MG TABLET PO (12:40)
[2023-06-06] MEDS: HYDROXYCHLOROQUINE 200 MG TABLET PO (12:40)
--- NOTE | 2023-06-06 15:14 | PC.NURSE ---
Patient alert and oriented x4. Up in chair all shift. Ambulates to the bathroom with Ax1 with a walker. NSR on tele. EKG performed due to tele warning of ST elevation, MD notified, EKG shows NSR with ischemia. Other vitals stable. Patient tolerating regular diet. Osborne under bilateral breasts treated with nystatin powder, skin otherwise intact with redness on bilateral extremities.
[2023-06-06] MEDS: WARFARIN 3 MG TABLET 1.5 MG PO (17:44)
--- NOTE | 2023-06-06 19:25 | PC.NURSE ---
End of shift-- Very pleasant and cooperative, alert and oriented patient. VSS and pt is afebrile. SPO2 maintained >90% on RA. She denied any pain. LS clear but diminished today with an occasional expiratory wheeze noted. Telemetry shows NSR with BBB. She denied nausea and ate a regular diet without difficulty independently, though pt required a little assistance to set up and adaptive equipment. BS+ x4. LLE remains bright pink, but appears improved since yesterday. She was up to BR today with assist of 1, belt and raised walker and tolerated it well. Report to RADHA Melara.
[2023-06-06] MEDS: MIRTAZAPINE 15 MG TABLET 7.5 MG PO (20:34)
[2023-06-07 03:00] VITALS: PULSE 71; RESP 16
[2023-06-07] MEDS: OMEPRAZOLE 20 MG CAPSULE DR PO (06:11)
[2023-06-07] MEDS: LEVOTHYROXINE 25 MCG TABLET PO (06:11)
[2023-06-07] MEDS: CEFAZOLIN 1 GM inj IVP (06:12)
[2023-06-07 06:21] LABS: Hematocrit 35.7 % (33.0-51.0); Hemoglobin* 10.8 gm/dL (12.0-16.0); Mean Corpuscular HGB Conc 30 gm/dL (32-36); Mean Corpuscular Hemoglobin 29 pg (26-34); Mean Corpuscular Volume 95 fL (80-100); Platelet Count* 290 K/uL (140-440); Red Blood Count 3.76 m/uL (4.00-5.20); White Blood Count* 9.55 K/uL (4.50-11.00)
[2023-06-07 06:26] LABS: Slide Review Reflex No
[2023-06-07 06:34] LABS: Chloride* 109 mmol/L (96-114)
[2023-06-07 06:35] LABS: Potassium* 3.6 mmol/L (3.6-5.1); Sodium* 141 mmol/L (135-149)
[2023-06-07 06:37] LABS: Creatinine* 0.8 mg/dL (0.5-1.5); Est. Creatinine Clearance* 32.23; Estimated Glomerular Filt Rate 74 ml/min
[2023-06-07 06:38] LABS: Anion Gap 4 mEq/L (7-15); Blood Urea Nitrogen* 15 mg/dL (7-30); Calcium* 8.1 mg/dL (8.4-10.6); Carbon Dioxide* 28 mmol/L (20-32); Glucose* 89 mg/dL (60-115)
[2023-06-07 06:51] LABS: INR 2.56 (0.91-1.10); Prothrombin Time 29.4 Seconds
[2023-06-07 07:50] VITALS: BP 126/64; PULSE 71; RESP 16; TEMP 36.7; O2SAT 97
[2023-06-07 08:17] VITALS: PULSE 67
[2023-06-07] MEDS: buPROPion XL 150 MG TABLET PO (09:24)
[2023-06-07] MEDS: GABAPENTIN 600 MG TABLET 1200 MG PO (09:24)
[2023-06-07] MEDS: POTASSIUM CHLORIDE 10 MEQ CAPSULE ER 20 MEQ PO (09:24)
[2023-06-07] MEDS: METOPROLOL SUCCINATE (XL) 25 MG TAB PO (09:25)
[2023-06-07] MEDS: FUROSEMIDE 40 MG TABLET PO (09:25)
[2023-06-07] MEDS: LOSARTAN POTASSIUM 50 MG TABLET 25 MG PO (09:25)
[2023-06-07] MEDS: LORATADINE 10 MG TABLET PO (09:25)
[2023-06-07] MEDS: HYDROCODONE-ACETAMIN 5-325 MG 1 TAB PO (09:25)
[2023-06-07] MEDS: NYSTATIN POWDER 1 APPLIC TOPICAL (09:26)
[2023-06-07] MEDS: predniSONE 10 MG TABLET PO (09:27)
[2023-06-07] MEDS: SODIUM CHLORIDE 0.9 % (FLUSH) 10 ML SYRINGE 5 ML IVF (09:27)
[2023-06-07 10:53] VITALS: BP 112/55; PULSE 67; RESP 16; TEMP 37; O2SAT 93
[2023-06-07] MEDS: HYDROXYCHLOROQUINE 200 MG TABLET PO (12:10)
[2023-06-07] MEDS: MAGNESIUM OXIDE 400 MG TABLET PO (12:10)
--- NOTE | 2023-06-07 12:10 | PC.SOCIAL ---
Discharge planning- Phone call to nurse at [facility] ([facility]) to provide update. Pt is ready for discharge today. Per [facility], pt uses [facility]. [facility] informs that they are working with family to increase services. Per therapy, pt is standby assist with 1. Pt informs therapy pt's home equipment will allow pt to move around better at home. [facility] informs that the [facility] van will peanut picker pt at 1:30 pm today. Provided update to MD and charge nurse. Phone call to pt's daughter Elodia cool voicemail providing update on discharge plans. Social work will follow up as needed.
--- NOTE | 2023-06-07 12:35 | P.DS_ITS ---
DS: Providers Provider Date Seen: 06/07/23 Date of admission: 06/05/23 11:41 Primary care physician: Prakash Moore MD Admitting Clinician: Betty Amezquita PA-C Consults: 06/05/23 13:58 Consult to Occupational Therapy [CONS] Routine Comment: Reason(s) for OT Consult:: Evaluate and Treat Any Restrictions?:: No Restrictions Consult to Physical Therapy [CONS] Routine Comment: Reason(s) for PT Consult:: Evaluate and Treat Any Restrictions?:: No Restrictions 06/05/23 15:39 Consult to Occupational Therapy [CONS] Routine Comment: Reason(s) for OT Consult:: Evaluate and Treat Any Restrictions?:: No Restrictions Consult to Physical Therapy [CONS] Routine Comment: Reason(s) for PT Consult:: Evaluate and Treat Any Restrictions?:: No Restrictions Attending Physician on discharge: Betty Amezquita PA-C Date of Discharge: 06/07/23 DS: Diagnosis Discharge Diagnosis (1) Left leg cellulitis: Status: Acute Problem details: -with history of previous. Afebrile, no leukocytosis, lactate normal, vitally stable. Confusion on admission resolved. Received 3 days IV antibiotics with notable improvement. Discharged back to home with oral cefadroxil to complete 7 day course for total of 10 day dosing. On day of discharge, BC x2 NGTD, UA unremarkable, MRSA negative (2) Systemic lupus erythematosus: Status: Chronic Problem details: Continued on home dose oral prednisone, received burst dose steroid in ED. Reports no longer taking methotrexate (3) Atrial fibrillation: Status: Chronic Problem details: s/p cardioversion March 2023 Continued on metoprolol and warfarin. INR 2.56 on day of discharge. Will need repeat INR in 2-3 days while on antibiotic (4) Anemia of chronic disease: Status: Chronic Problem details: Hemoglobin 12.7-10.8, near baseline (5) Hypertension: Status: Chronic Problem details: Continued on home medications (6) Hypokalemia: Status: Acute Problem details: Resolved following additional dosing of potassium chloride. Continued on home supplement. (7) Hypothyroidism: Status: Acute Problem details: Continue levothyroxine. TSH 6.23, previous 2.12-5.60. Outpatient follow-up with PCP for recheck and medication management DS: Summary Hospital Course Hospital Course: [age] year old female past medical history significant for systemic lupus on chronic steroid, atrial fibrillation on chronic anticoagulation, hypertension, hypothyroidism was admitted to the medical floor for further management recurrent lower extremity cellulitis. Course of care and details as noted above. Notable improvement cellulitis with resolution of acute confusion following 3 day course IV antibiotics. Discharge back to home on oral antibiotics to complete a total 10 day course of antibiotics. INR 2.56 on 06/07. RECHECK INR 2-3 DAYS WHILE ON ANTIBIOTIC. Remainder of chronic medical comorbidities were monitored and managed with home medications. Status at Discharge Overall status at discharge: patient is back to baseline Time Spent with Patient Time attestation: Total time spent providing and/or coordinating discharge services: Time spent: Greater than 30 minutes Exam Narrative: Exam Narrative: PHYSICAL EXAM GENERAL: PLEASANT, CONVERSANT, NAD CARDIOVASCULAR: RRR PULMONARY: NO DYSPNEA NEUROLOGICAL: ALERT, ANSWERING QUESTIONS APPROPRIATELY SKIN: WARM, DRY. Const: Vital Signs, click to edit/add: Vital Signs - 24 hr 06/06/23 15:00 06/06/23 15:00 06/06/23 15:00 Temperature 98.0 F Pulse Rate 76 Pulse Rate [Pulse Oximeter] 68 68 Respiratory Rate 17 17 Blood Pressure [Ri ght Arm] 116/63 Pulse Oximetry 94 Oxygen Delivery Me thod Room Air 06/06/23 20:30 06/06/23 23:00 06/06/23 23:00 Temperature 98.0 F Pulse Rate 73 Pulse Rate [Pulse Oximeter] 74 Respiratory Rate 16 18 Blood Pressure [Ri ght Arm] 117/62 Pulse Oximetry 94 Oxygen Delivery Me thod Room Air 06/06/23 23:00 06/07/23 03:00 06/07/23 07:50 Temperature 97.9 F 98.1 F Pulse Rate Pulse Rate [Pulse Oximeter] 78 71 71 Respiratory Rate 16 16 16 Blood Pressure [Ri ght Arm] 124/58 L 126/64 Pulse Oximetry 96 97 Oxygen Delivery Me thod Room Air Room Air 06/07/23 08:17 06/07/23 10:53 Temperature 98.6 F Pulse Rate 67 Pulse Rate [Pulse Oximeter] 67 Respiratory Rate 16 Blood Pressure [Ri ght Arm] 112/55 L Pulse Oximetry 93 Oxygen Delivery Me thod Room Air DS: Data Data Completed and Pending Completed studies during hospitalization: Procedures Inspection of Upper Intestinal Tract, Via Natural or Artificial Opening Endoscopic (03/23/23) Introduction of Other Gas into Respiratory Tract, Via Natural or Artificial Opening (03/23/23) Sabianism of Cardiac Rhythm, Single (03/23/23) Transfusion of Nonautologous Red Blood Cells into Peripheral Vein, Percutaneous Approach (03/23/23) Labs on day of discharge: Labs from last 24 hours 06/07/23 05:52 WBC 9.55 RBC 3.76 L Hgb 10.8 L Hct 35.7 MCV 95 MCH 29 MCHC 30 L Plt Count 290 INR 2.56 H Sodium 141 Potassium 3.6 Chloride 109 Carbon Dioxide 28 Anion Gap 4 L BUN 15 Creatinine 0.8 Estimated Creat Clear 32.23 Estimated GFR 74 Glucose 89 Calcium 8.1 L Preliminary micro results at discharge 06/05/23 09:10 Blood Culture - Preliminary Blood NO GROWTH AFTER 48 HOURS 06/05/23 09:20 Blood Culture - Preliminary Blood NO GROWTH AFTER 48 HOURS Discharge Plan Discharge Disposition: Home, Self-Care Date of Admission: 06/05/23 11:41 Attending Provider on Discharge: Betty Amezquita Primary Care Provider: Prakash Moore Condition: Improved Anticipated Discharge Date/Time: 06/07/23 12:29 Discharge Medications: New cefadroxil 500 mg capsule 500 mg PO BID Qty: 14 0RF Continued melatonin 3 mg capsule 3 mg PO HS PRN bupropion HCl 150 mg tablet extended release 24 hr 150 mg PO DAILY Qty: 90 3RF furosemide 40 mg tablet 40 mg PO DAILY Qty: 90 3RF losartan 25 mg tablet 25 mg PO DAILY Qty: 90 3RF metoprolol succinate 25 mg tablet extended release 24 hr 25 mg PO DAILY Qty: 90 3RF fluconazole 150 mg tablet 150 mg PO QWEEK Qty: 12 4RF Patient Comments: takes on Wednesday hyoscyamine sulfate 0.125 mg tablet, sublingual 0.125 mg PO Q4H PRN lorazepam 0.5 mg tablet 0.5 mg PO Q4H omeprazole 20 mg capsule,delayed release(DR/EC) 20 mg PO DAILY prednisone 10 mg tablet 10 mg PO DAILY potassium chloride 10 mEq capsule, extended release 20 meq PO BID levothyroxine 25 mcg tablet 25 mcg PO DAILY magnesium oxide 400 mg magnesium tablet 400 mg PO DAILY@12 warfarin 3 mg tablet 1.5 mg PO DAILY Protocol: Dose Management Condition: Wednesday Dose/Route: 1.5 mg Instruction: 0.5 x 3 mg tablets Condition: Wednesday Dose/Route: 1.5 mg Instruction: 0.5 x 3 mg tablets Condition: Wednesday Dose/Route: 1.5 mg Instruction: 0.5 x 3 mg tablets Condition: Wednesday Dose/Route: 1.5 mg Instruction: 0.5 x 3 mg tablets Condition: Dose/Route: 1.5 mg Instruction: 0.5 x 3 mg tablets Condition: Wednesday Dose/Route: 1.5 mg Instruction: 0.5 x 3 mg tablets Condition: Wednesday Dose/Route: 1.5 mg Instruction: 0.5 x 3 mg tablets Protocol Text: Adjustment Start Date: Wednesday06/01/23 INR Value: 4.1 INR Date: 06/01/23 Recheck Date: 06/08/23 loratadine 10 mg tablet 10 mg PO DAILY mirtazapine 7.5 mg tablet 7.5 mg PO HS estradiol 0.01 % (0.1 mg/gram) cream 0.5 g vaginal QWEEK Qty: 42.5 1RF Rx Instructions: Use nightly for two weeks, then decrease use to twice weekly for 2 weeks, then use once weekly. hydroxychloroquine 200 mg tablet 200 mg PO .Daily At 12:00PM Qty: 90 0RF hydrocodone-acetaminophen 5-325 mg tablet 1 tab PO QDAY 30 Days Qty: 30 0RF gabapentin 400 mg capsule 1,200 mg PO BID Qty: 540 3RF Discharge Orders: Discharge Order (Routine); Ordered 06/07/23 Ordered By: Betty Amezquita Patient Education: Cefadroxil (By mouth), Cellulitis (GEN) Additional Instructions: You have received 3 days of IV antibiotics. Continue 7 days of oral antibiotics. Follow up with your PCP for resolution and post hospital visit. INR 2.56 on 06/07. Recheck in 2-3 days while on antibiotics. RESUME PT/OT. INCREASED SERVICES NEEDED Activity Level: Activity as Tolerated Activity Detail: RESUME PT/OT Discharge Diet: Regular Follow Up Appointments: Prakash Moore MD [Primary Care Provider] - 06/17/23 2:15 pm (Post hospital follow up, resolution of cellulitis) Forms: [facility] Inst[facility]
--- NOTE | 2023-06-07 14:07 | PC.NURSE ---
Pt alert and oriented. Pt had no complaints of pain. Pt SBA with walker and gait belt. Pt's dressing on right foot is dry and intact. Pt's IV's removed; catheters intact. Pt returning to [facility]; picked up by [facility].
== END 2023-06-07 13:40 | disposition home or self-care (01) ==
LOC: ED 09:10 → MEDSURG 11:43
PROVIDERS: Admitting Provider Physician Assistant; Emergency Provider Emergency Medicine; PCP Family Medicine; Visit Provider Physician Assistant
DX: L03.116 Cellulitis of left lower limb (principal); D63.8 Anemia in other chronic diseases classified elsewhere; M32.9 Systemic lupus erythematosus, unspecified; R41.0 Disorientation, unspecified; I48.91 Unspecified atrial fibrillation; R60.0 Localized edema; Z51.81 Encounter for therapeutic drug level monitoring; I10 Essential (primary) hypertension; E87.6 Hypokalemia; M41.9 Scoliosis, unspecified; D36.9 Benign neoplasm, unspecified site; E03.9 Hypothyroidism, unspecified; I42.0 Dilated cardiomyopathy; M21.611 Bunion of right foot; K21.9 Gastro-esophageal reflux disease without esophagitis; G89.29 Other chronic pain; J30.2 Other seasonal allergic rhinitis; M85.80 Other specified disorders of bone density and structure, unspecified site; H93.8X1 Other specified disorders of right ear; Z79.01 Long term (current) use of anticoagulants; Z79.52 Long term (current) use of systemic steroids; Z86.711 Personal history of pulmonary embolism; Z87.11 Personal history of peptic ulcer disease; Z86.718 Personal history of other venous thrombosis and embolism; Z87.891 Personal history of nicotine dependence; Z96.619 Presence of unspecified artificial shoulder joint; Z96.649 Presence of unspecified artificial hip joint; Z96.652 Presence of left artificial knee joint; Z90.710 Acquired absence of both cervix and uterus; Z90.49 Acquired absence of other specified parts of digestive tract; Z91.09 Other allergy status, other than to drugs and biological substances; Z98.1 Arthrodesis status; Z78.9 Other specified health status; Z98.890 Other specified postprocedural states; Z66 Do not resuscitate
CPT/HCPCS: 36415; 70450; 74177; 80048; 81001; 82803; 83605; 84443; 85025; 85027; 85610; 87040; 87081; 87631; 93005; 93971; 96361; 96365; 96366; 96367; 96375; 96376; 97110; 97161; 97166; 97530; 97535; 99284; 99285; G0378; A9270; J0690; J0696; J1720; J3370; J7030; J7120; J7512; Q9967

== ENCOUNTER 2023-06-19 13:47 | Emergency (ER) | payer MEDICARE, BC, SELFPAY ==
[2023-06-19 13:57] VITALS: BP 162/90; PULSE 86; RESP 16; TEMP 36.9; O2SAT 99; BMI 27.8
--- NOTE | 2023-06-19 13:58 | ED_ITS ---
HPI - General Adult General Chief complaint: Extremity Pain/Injury, Lower Stated complaint: Leg pain Time Seen by Provider: 06/19/23 13:50 History of Present Illness HPI narrative: Pt recently discharged from hospital after having iV antibiotics for bilateral lower leg cellulitis. Pt states she religiously took her abx at home and is on her last pill. In the last few days the cellulitis has come back with a vengance per pt 78-year-old woman presenting to the emergency depart with her daughter with concern of return of cellulitis. Following a couple of days of IV antibiotics was discharged about a week ago with cefadroxil. She has been doing well though home care noted some increased redness a couple of days ago in the lower extremities. Ms. Frost has noticed some increased warmth and redness as well. No fever. No new pain. Underlying history of rheumatoid arthritis and is immunosuppressed currently with prednisone. She noticed last night more redness when she was sitting admittedly legs down believe watching TV. Other than when she is in bed, it appears that legs are generally not particularly elevated. She does wear compression stockings usually below the knee. Did not put them on today for evaluation here in the ER though. Anticoagulated with Coumadin. Related Data Home Medications Medication Instructions Recorded Confirmed melatonin 3 mg capsule 3 mg PO HS PRN 01/13/22 06/05/23 hyoscyamine sulfate 0.125 mg 0.125 mg PO Q4H PRN 05/13/23 06/05/23 sublingual tablet lorazepam 0.5 mg tablet 0.5 mg PO Q4H anxiety 05/13/23 06/05/23 omeprazole 20 mg capsule,delayed 20 mg PO DAILY 05/13/23 06/05/23 release potassium chloride 10 mEq 20 meq PO BID 05/13/23 06/05/23 capsule,extended release prednisone 10 mg tablet 10 mg PO DAILY 05/13/23 06/05/23 levothyroxine 25 mcg tablet 25 mcg PO DAILY 06/05/23 06/05/23 loratadine 10 mg tablet 10 mg PO DAILY allergic symptoms 06/05/23 06/05/23 magnesium oxide 400 mg PO DAILY@12 06/05/23 06/05/23 mirtazapine 7.5 mg tablet 7.5 mg PO HS 06/05/23 06/05/23 warfarin 3 mg tablet 1.5 mg PO DAILY 06/05/23 06/05/23 Previous Rx's Medication Instructions Recorded estradiol 0.01% (0.1 mg/gram) 0.5 g vaginal QWEEK #42.5 grams 01/30/22 vaginal cream bupropion HCl 150 mg 24 hr tablet, 150 mg PO DAILY #90 tabs 02/25/23 extended release fluconazole 150 mg tablet 150 mg PO QWEEK #12 tabs 02/25/23 furosemide 40 mg tablet 40 mg PO DAILY #90 tabs 02/25/23 losartan 25 mg tablet 25 mg PO DAILY #90 tabs 02/25/23 metoprolol succinate 25 mg 25 mg PO DAILY #90 tabs 02/25/23 tablet,extended release 24 hr hydroxychloroquine 200 mg tablet 200 mg PO .Daily At 12:00PM #90 04/19/23 tabs hydrocodone 5 mg-acetaminophen 325 1 tab PO QDAY pain 30 days #30 tabs 05/05/23 mg tablet gabapentin 400 mg capsule 1,200 mg (3 x 400 mg) PO BID #540 05/14/23 caps cefadroxil 500 mg capsule 500 mg PO BID #14 caps 06/07/23 Allergies Allergy/AdvReac Type Severity Reaction Status Date / Time amitriptyline Allergy Severe disorientat Verified 06/19/23 13:57 ion penicillin V Allergy Severe upset Verified 06/19/23 13:57 stomach and rash perphenazine Allergy Severe disorientat Verified 06/19/23 13:57 ion adhesive Allergy Unknown Unknown Verified 06/19/23 13:57 bee venom protein (honey bee) AdvReac Severe Anaphylaxis Verified 06/19/23 13:57 latex AdvReac Severe Rash Verified 06/19/23 13:57 amoxicillin AdvReac Intermediate Diarrhea Verified 06/19/23 13:57 Tricyclic antidepressant Allergy Severe disorientat Uncoded 06/05/23 09:34 ion Bee venom Allergy Mild swells and Uncoded 06/05/23 09:34 area turns red Sulfa drugs Allergy Unknown Unknown Uncoded 06/05/23 09:34 Clavulanate AdvReac Intermediate Diarrhea Uncoded 06/05/23 09:34 Review of Systems Status of ROS: Reports: 6 or more systems reviewed and unremarkable except as noted in History and below [facility] Medical History Atrial fibrillation ?I48.91 - Unspecified atrial fibrillation (ICD-10) Hypothyroidism ?E03.9 - Hypothyroidism, unspecified (ICD-10) Left leg cellulitis ?L03.116 - Cellulitis of left lower limb (ICD-10) Systemic lupus erythematosus ?M32.9 - Systemic lupus erythematosus, unspecified (ICD-10) Anemia ?D64.9 - Anemia, unspecified (ICD-10) Psoriasis ?L40.9 - Psoriasis, unspecified (ICD-10) Anemia ?D64.9 - Anemia, unspecified (ICD-10) Yeast dermatitis ?B37.2 - Candidiasis of skin and nail (ICD-10) Environmental allergies ?Z91.09 - Other allergy status, other than to drugs and biological substances (ICD-10) Osteoarthritis of left hip ?M16.12 - Unilateral primary osteoarthritis, left hip (ICD-10) Osteoarthritis of right knee ?M17.11 - Unilateral primary osteoarthritis, right knee (ICD-10) Osteoarthritis of right shoulder ?M19.011 - Primary osteoarthritis, right shoulder (ICD-10) Urethral caruncle ?N36.2 - Urethral caruncle (ICD-10) Weakness ?R53.1 - Weakness (ICD-10) Urinary tract infection ?N39.0 - Urinary tract infection, site not specified (ICD-10) Unsteady gait ?R26.81 - Unsteadiness on feet (ICD-10) Tubular adenoma ?D36.9 - Benign neoplasm, unspecified site (ICD-10) Spinal stenosis ?M48.00 - Spinal stenosis, site unspecified (ICD-10) 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 (ICD-10) Seasonal allergic rhinitis (01/27/12) ?J30.2 - Other seasonal allergic rhinitis (ICD-10) Scoliosis (01/27/12) ?M41.9 - Scoliosis, unspecified (ICD-10) Right shoulder pain ?M25.511 - Pain in right shoulder (ICD-10) Pyelonephritis ?N12 - Tubulo-interstitial nephritis, not specified as acute or chronic (ICD- 10) Positive colorectal cancer screening using DNA-based stool test ?R19.5 - Other fecal abnormalities (ICD-10) Physician Orders for Life-Sustaining Treatment (09/28/17) ?Z78.9 - Other specified health status (ICD-10) Physical deconditioning ?R53.81 - Other malaise (ICD-10) Physical debility ?R53.81 - Other malaise (ICD-10) Peripheral edema (05/12/10) ?R60.9 - Edema, unspecified (ICD-10) Osteopenia (05/26/11) ?M85.80 - Other specified disorders of bone density and structure, unspecified site (ICD-10) Nonspecific colitis ?K52.9 - Noninfective gastroenteritis and colitis, unspecified (ICD-10) Long-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 - Immunodeficiency due to drugs (ICD-10) ?T38.0X5A - Adverse effect of glucocorticoids and synthetic analogues, initial encounter (ICD-10) ?Z79.52 - assistant terminal manager (current) use of systemic steroids (ICD-10) Hypokalemia ?E87.6 - Hypokalemia (ICD-10) Hypertension (08/16/12) ?I10 - Essential (primary) hypertension (ICD-10) Hyperlipidemia ?E78.5 - Hyperlipidemia, unspecified (ICD-10) High C-reactive protein ?R79.82 - Elevated C-reactive protein (CRP) (ICD-10) Health care directive on file (07/05/15) ?Z78.9 - Other specified health status (ICD-10) Gastroesophageal reflux disease (04/11/10) ?K21.9 - Gastro-esophageal reflux disease without esophagitis (ICD-10) Dilated cardiomyopathy (05/12/10) ?I42.0 - Dilated cardiomyopathy (ICD-10) Dilated bile duct ?K83.8 - Other specified diseases of biliary tract (ICD-10) Depression (08/16/12) ?F32.A - Depression, unspecified (ICD-10) Constipation ?K59.00 - Constipation, unspecified (ICD-10) Colitis ?K52.9 - Noninfective gastroenteritis and colitis, unspecified (ICD-10) Chronic pain syndrome ?G89.4 - Chronic pain syndrome (ICD-10) Chronic pain ?G89.29 - Other chronic pain (ICD-10) Cellulitis ?L03.90 - Cellulitis, unspecified (ICD-10) Atrial fibrillation with rapid ventricular response ?I48.91 - Unspecified atrial fibrillation (ICD-10) Anxiety (04/11/10) ?F41.9 - Anxiety disorder, unspecified (ICD-10) Anticoagulation goal of INR 2 to 3 ?Z51.81 - Encounter for therapeutic drug level monitoring (ICD-10) ?Z79.01 - assistant terminal manager (current) use of anticoagulants (ICD-10) Anemia of chronic disease ?D63.8 - Anemia in other chronic diseases classified elsewhere (ICD-10) Abnormal liver function tests ?R79.89 - Other specified abnormal findings of blood chemistry (ICD-10) Long-term (current) use of anticoagulants, INR goal 2.0-3.0 ?Z79.01 - assistant terminal manager (current) use of anticoagulants (ICD-10) Knee osteoarthritis ?M17.10 - Unilateral primary osteoarthritis, unspecified knee (ICD-10) POLST (Physician Orders for Life-Sustaining Treatment) ?Z78.9 - Other specified health status (ICD-10) Irritation of right ear ?H93.8X1 - Other specified disorders of right ear (ICD-10) History of pulmonary embolism (2017) ?Z86.711 - Personal history of pulmonary embolism (ICD-10) History of peptic ulcer ?Z87.11 - Personal history of peptic ulcer disease (ICD-10) History of deep vein thrombosis (DVT) of lower extremity (2017) ?Z86.718 - Personal history of other venous thrombosis and embolism (ICD-10) Head injury with loss of consciousness ?S06.9X9A - Unspecified intracranial injury with loss of consciousness of unspecified duration, initial encounter (ICD-10) Surgical History S/P foot surgery, right (08/28/14) ?Z98.890 - Other specified postprocedural states (ICD-10) 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) ?Z96.619 - Presence of unspecified artificial shoulder joint (ICD-10) Status post lumbar spinal fusion (04/11/10) ?Z98.1 - Arthrodesis status (ICD-10) Status post cervical spinal arthrodesis (09/2017) ?Z98.1 - Arthrodesis status (ICD-10) History of total hip replacement (05/12/10) ?Z96.649 - Presence of unspecified artificial hip joint (ICD-10) History of left knee replacement (05/12/10) ?Z96.652 - Presence of left artificial knee joint (ICD-10) History of hysterectomy (04/11/10) ?Z90.710 - Acquired absence of both cervix and uterus (ICD-10) History of colonoscopy (05/18/19) ?Z98.890 - Other specified postprocedural states (ICD-10) History of cholecystectomy (05/12/10) ?Z90.49 - Acquired absence of other specified parts of digestive tract (ICD- 10) Family History Brother Coronary artery disease Father Cancer Social History Narrative: Patient [facility]. Code status is DNR. Healthcare power of compliance attorney is her daughter Giselle from [place]. She quit smoking many years ago. Has been chewing nicotine gum since then. She does not drink alcohol What is your current living situation?: I presently have a place to live Problems where you live: no known problems Problems where you live details: no known problems In the past 12 months, utilities in danger of being shut off: no In past 12 months, lack of transportation kept you from medical appts, meetings, work, or getting things needed for daily living: no In the past 12 mos, have been you worried that your food would run out before you had money to buy more?: never true In the past 12 mos, the food you bought just didn't last and you didn't have money to buy more?: never true Highest level of school completed/degree received: 12th grade, no diploma Smoking Status: Never smoker Second hand tobacco smoke exposure: No How often do you have a drink containing alcohol: never How often do you have six or more drinks on one occasion: Never AUDIT-C Alcohol total score: 0 Non-prescribed substance use: denies use Caffeine: Yes (4-5 cups daily) How often does anyone, including family, friends and others, physically hurt you : never How often does anyone, including family, friends and others, insult or talk down to you: never How often does anyone, including family, friends and others, threaten you with harm: never How often does anyone, including family, friends and others, scream or curse at you: never Little interest or pleasure in doing things: several days Feeling down, depressed, or hopeless: more than half the days service: No Exam Narrative: Exam Narrative: Very pleasant. Energetic. Wheel chaired into this department. Accompanied by her daughter. Breathing easily. Deviation of MCP joints noted on both hands. Heart is in a regular rate. Examination of the lower extremities in question shows generalized erythema bilaterally with stippling consistent with vascularity on the right lower leg. There is also tension that I am not sure is actually representing induration of the skin; hard to distinguish if thing from generalized and chronic tension in her lower legs. Mild calor. No particular pain to palpation. No break in the skin or indication of infection otherwise.. Const: Vital Signs, click to edit/add: Vital Signs - 24 hr 06/19/23 13:57 Temperature 98.5 F Pulse Rate [Right Pulse Oximeter] 86 Respiratory Rate 16 Blood Pressure [Ri ght Upper Arm] 162/90 H Pulse Oximetry 99 Oxygen Delivery Me thod Room Air Documenting provider has reviewed patient's vital signs: yes Course Vital Signs Vital signs: Initial Vital Signs Temperature 98.5 F 06/19/23 13:57 Temperature Source Temporal Artery Scan 06/19/23 13:57 Pulse Rate 86 06/19/23 13:57 Pulse Rhythm Regular 06/19/23 13:57 Pulse Strength 3+ Normal 06/19/23 13:57 Respiratory Rate 16 06/19/23 13:57 Blood Pressure 162/90 H 06/19/23 13:57 Blood Pressure Mean 114 H 06/19/23 13:57 Blood Pressure Position Sitting 06/19/23 13:57 Pulse Oximetry 99 06/19/23 13:57 Oxygen Delivery Method Room Air 06/19/23 13:57 Vital Signs Temperature 98.5 F 06/19/23 13:57 Pulse Rate 86 06/19/23 13:57 Respiratory Rate 16 06/19/23 13:57 Blood Pressure 162/90 H 06/19/23 13:57 Pulse Oximetry 99 06/19/23 13:57 Oxygen Delivery Method Room Air 06/19/23 13:57 Temperature 98.5 F 06/19/23 13:57 Pulse Rate 86 06/19/23 13:57 Respiratory Rate 16 06/19/23 13:57 Blood Pressure 162/90 H 06/19/23 13:57 Pulse Oximetry 99 06/19/23 13:57 Oxygen Delivery Method Room Air 06/19/23 13:57 Medical Decision Making MDM Narrative Medical decision making narrative: Reviewing records on last admission here and hospitalization white count was not elevated. I think lab analysis will not change diagnosis. No fever here today. I did discuss monitoring her legs for duration of couple of hours of elevation to be more sure of this diagnosis of cellulitis. Understandably she is disinclined to wait here to do that. It is important that she work to keep her legs elevated. Daughter says that they just been talking about getting a recliner or similar. Considering immunosuppression and history of recurrent cellulitis think it is prudent to go ahead in initiate treatment or continuing treatment. As she is already on antibiotics not sure that initial round of IV antibiotics is so critical. The brightness of this rash would suggest strep organism. I ask about allergies; penicillin is listed and amoxicillin both apparently associated with upset stomach and diarrhea but penicillin noted to have a rash. She does say that [facility] cleared her of an allergy to penicillin in the past. Cephalexin is available in [facility]. She may choose to monitor with legs quite elevated for a couple of hours or initiate cephalexin to continue current antibiotic course. See patient discharge plan Discharge Plan Discharge Clinical Impression: Cellulitis, Immunosuppression, Edema, peripheral Patient Disposition: Home, Self-Care Condition: Stable Instructions: Cellulitis (ED) Additional Instructions: Yes. It is imperative, critical that you elevate your legs any time you are at rest. Elevation means at the level of your heart. Sounds like it is time to get that recliner. Also when you are up and about be sure that you are wearing your compression stockings. It is doubtful that there is a significant cellulitis if after 2 hours of true leg elevation the redness essentially fully fades. You can certainly try this prior to initiating the cephalexin I am prescribing from [facility]. Other concerning signs of true cellulitis is marked increase in pain or heat or fever. Do be seen for new fever, marked increase in persistent pain, repeated vomiting, increasing weakness. Activity Level: No Restrictions Discharge Diet: Regular Prescriptions: No Action melatonin 3 mg capsule 3 mg PO HS PRN bupropion HCl 150 mg tablet extended release 24 hr 150 mg PO DAILY Qty: 90 3RF furosemide 40 mg tablet 40 mg PO DAILY Qty: 90 3RF losartan 25 mg tablet 25 mg PO DAILY Qty: 90 3RF metoprolol succinate 25 mg tablet extended release 24 hr 25 mg PO DAILY Qty: 90 3RF fluconazole 150 mg tablet 150 mg PO QWEEK Qty: 12 4RF Patient Comments: takes on Wednesday hyoscyamine sulfate 0.125 mg tablet, sublingual 0.125 mg PO Q4H PRN lorazepam 0.5 mg tablet 0.5 mg PO Q4H omeprazole 20 mg capsule,delayed release(DR/EC) 20 mg PO DAILY prednisone 10 mg tablet 10 mg PO DAILY potassium chloride 10 mEq capsule, extended release 20 meq PO BID levothyroxine 25 mcg tablet 25 mcg PO DAILY magnesium oxide 400 mg magnesium tablet 400 mg PO DAILY@12 warfarin 3 mg tablet 1.5 mg PO DAILY Protocol: Dose Management Condition: Wednesday Dose/Route: 1.5 mg Instruction: 0.5 x 3 mg tablets Condition: Wednesday Dose/Route: 1.5 mg Instruction: 0.5 x 3 mg tablets Condition: Wednesday Dose/Route: 1.5 mg Instruction: 0.5 x 3 mg tablets Condition: Wednesday Dose/Route: 1.5 mg Instruction: 0.5 x 3 mg tablets Condition: Dose/Route: 1.5 mg Instruction: 0.5 x 3 mg tablets Condition: Wednesday Dose/Route: 0 mg Instruction: 0 tablets Condition: Wednesday Dose/Route: 1.5 mg Instruction: 0.5 x 3 mg tablets Protocol Text: Adjustment Start Date: Wednesday06/11/23 INR Value: 2.56 INR Date: 06/07/23 Recheck Date: 06/25/23 loratadine 10 mg tablet 10 mg PO DAILY mirtazapine 7.5 mg tablet 7.5 mg PO HS cefadroxil 500 mg capsule 500 mg PO BID Qty: 14 0RF estradiol 0.01 % (0.1 mg/gram) cream 0.5 g vaginal QWEEK Qty: 42.5 1RF Rx Instructions: Use nightly for two weeks, then decrease use to twice weekly for 2 weeks, then use once weekly. hydroxychloroquine 200 mg tablet 200 mg PO .Daily At 12:00PM Qty: 90 0RF hydrocodone-acetaminophen 5-325 mg tablet 1 tab PO QDAY 30 Days Qty: 30 0RF gabapentin 400 mg capsule 1,200 mg PO BID Qty: 540 3RF Follow Up/Referrals: Prakash Moore MD [Primary Care Provider] - Stand Alone Forms: [employer] Info Instructions
--- OUTSIDE RECORDS SUMMARY | 2023-06-19 14:26 | XMS_ITS | Clinical Summary ---
Author Name Unknown Organization [employer] [facility] Address [place], [place] [address] Care Team Providers Care Agricultural Produce Sorter Name Role Phone Prakash Moore MD Primary Care Provider [phone] Allergies Active Allergy Reactions Criticality Noted Date [...] daily. 0 Active MULTIVITS W-FE,OTHER MIN (PEDIATRIC KIPIZAYE-BDZF-IAZ ORAL) Take by mouth once daily. 0 [...] Encounters Date Type Department Care Team Description 06/08/2023 2:15 PM AIR BRUSH DECORATOR Office Visit [facility] [address] [place] [address] Saran Arias DPM Follow Up (Right great toe ulcer check) 06/08/2023 Travel 06/02/2023 Telephone [facility] [address] [place] [address] Saran Arias DPM symtoms 05/26/2023 Telephone [facility] [address] [place] [address] Saran Arias DPM Questions (Questions on appointment) 05/25/2023 1:15 PM AIR BRUSH DECORATOR Office Visit [facility] [address] [place] [address] Saran Arias DPM Consult (Right great toe ulcer) 05/25/2023 Travel 05/19/2023 Telephone [facility] [address] [place] [address] Saran Arias DPM CALL BACK (bunions) from [...] Pressure 117/56 10/29/2021 3:05 PM CDT Pulse 76 06/08/2023 2:46 PM AIR BRUSH DECORATOR Temperature 36.4 ??C (97.5 ??F) 06/08/2023 2:46 PM CS T Respiratory Rate 16 05/24/2020 3:38 PM AIR BRUSH DECORATOR Oxygen Saturation 97% 06/08/2023 2:46 PM AIR BRUSH DECORATOR Inhaled Oxygen Concentration - - Weight 63.5 kg (140 lb) 05/24/2020 3:38 PM AIR BRUSH DECORATOR Height 143.5 cm (4' 8.5) 09/21/2017 4:21 PM CDT Body Mass Index 30.83 09/21/2017 4:21 PM CDT Plan of Treatment Upcoming Encounters Date Type Department Care Team (Late st Contact Info) Description 06/23/2023 1:45 PM AIR BRUSH DECORATOR Office Visit [facility] [address] [place] [address] Saran Arias DPM [address] [place] [address] 07/14/2023 2:00 PM AIR BRUSH DECORATOR Office Visit [facility] [address] [place] [address] Saran Arias DPM [address] [place] [address] Health Maintenance Due Date Last Done Comments [...] 01/08/2023 02/12/2011 Medical Devices Implanted Type Area Authorizer Device Identifier Shelf Expiration Date Model / Serial / Lot [id number] 1-4mm 30cc Medtronic Chips Canclls Freeze Dried Implanted:Qty: 1 on 09/23/2017 by Chase Snowden MD at [facility] Explanted:at [facility] (Quantity not on file) N/A: Spine Medtronic Spine/Ortho 09/30/2021 [id number] / [id number] / Plate Ti Occipital 50mm Implanted:Qty: 1 on 09/23/2017 by Chase Snowden MD at [facility] N/A: Spine 04.161.001 / / Description:PLATE TI OCCIPIT AL 50MM Screw Occipital Ti 4.5 X 8 Implanted:Qty: 1 on 09/23/2017 by Chase Snowden MD at [facility] N/A: Spine 04.601.108 / / Description:SCREW OCCIPITAL TI 4.5 X 8 Screw Occipital Ti 4.5 X 10 Implanted:Qty: 1 on 09/23/2017 by Chase Snowden MD at [facility] N/A: Spine 04.601.110 / / Description:SCREW OCCIPITAL TI 4.5 X 10 Screw Cerv Post 4.5x14mm Synapse Va Canncls Titnm Implanted:Qty: 1 on 09/23/2017 by Chase Snowden MD at [facility] N/A: Spine 04.614.214 / / Description:SCREW CERV POST 4.5X14MM SYNAPSE VA CANNCLS TITNM Mushtaq Pre-Bent 3.6i165li Titnm - [id number] Implanted:Qty: 2 on 09/23/2017 by Chase Snowden MD at [facility] N/A: Spine J And J Depuy Spine 04.161.032 # / / Set Screw Cerv Axon - [id number] Implanted:Qty: 2 on 09/23/2017 by Chase Snowden MD at [facility] N/A: Spine J And J Depuy Spine [id number]# / / Screw Cerv Post 4x10mm Synapseva Canncls Titnm - [id number] Implanted:Qty: 1 on 09/23/2017 by Chase nSowden MD at [facility] N/A: Spine J [employer] J Depuy Spine 04.614.110 # / / Screw Cerv Post 4x12mm Synapseva Canncls Titnm - [id number] Implanted:Qty: 2 on 09/23/2017 by Chase Snowden MD at [facility] N/A: Spine J [employer] J Depuy Spine 04.614.112 # / / Screw Cerv Post 4.5x10mm Synapse Va Canncls Titnm - [id number] Implanted:Qty: 1 on 09/23/2017 by Chase Snowden MD at [facility] N/A: Spine J And J Depuy Spine 04.614.210 # / / Screw Cerv Post 4.5x26mm Synapse Va Canncls Titnm - [id number] Implanted:Qty: 1 on 09/23/2017 by Chase Snowden MD at [facility] N/A: Spine J And J Depuy Spine 04.614.226 # / / Screw Cerv Post 4.5x28mm Synapse Va Canncls Titnm - [id number] Implanted:Qty: 3 on 09/23/2017 by Chase Snowden MD at [facility] N/A: Spine J And J Depuy Spine 04.614.228 # / / Set Screw Cerv Synapse - [id number] Implanted:Qty: 9 on 09/23/2017 by Chase Snowden MD at [facility] N/A: Spine J And J Depuy Spine 04.614.508 # / / Advance Directives Latest Code Status on File Code Status Date Activated Date Inactivated Comments Full Code 09/23/2017 7:47 PM 09/28/2017 12:30 PM Care Teams Agricultural Produce Sorter Relationship Specialty Start Date End Date Prakash Moore MD [address] [facility] [place] [id number] PCP - General Family Practice 09/20/17
--- OUTSIDE RECORDS SUMMARY | 2023-06-19 14:26 | XMS_ITS | Continuity of Care Document ---
Author Name Unknown Organization [facility] Address [address] [place] [address] Phone Care Team Providers Care Hybrid Tester Name Role Phone Chase Snowden MD Unavailable [...] Seg Office/Outpatient Visit,Est, Mod 2017 Office/Outpatient Visit,New, [facility] 2017 Office/Outpatient Visit,Est, Mod 2011 [...] Providers Copied on Encounter [facility], [address] [place] [address], [id number], [place] tel:[phone] No Information 1 Sp Stone. [facility] [place], [address] [place] [address], [id number], [place]. [phone] [facility], [address] [place] [address], [id number], [place] tel:[phone] [facility] Arthrodesis status 1 No Information Office/Outpa tient Visit,Est, Mod [facility], [address] [place] [address], [id number], [place] tel:[phone] [facility] [place] No Information No Information Referring Provider: Prakash Mccauley, [facility] [address] [place], [address]. tel:[phone] Office/Outpa tient Visit,Est, Mod [facility], [address] [place] [address], [id number], [place] tel:[phone] [facility] Arthrodesis status 0 Sp Stone. [facility] [place], [facility] [address] [place] [address], [id number], [place]. tel:[phone] Referring Provider: Prakash Mccauley, [facility] [address] [place], [address]. tel:[phone] Office/Outpa tient Visit,Est, Mod [facility], [address] [place] [address], [id number], [place] tel:[phone] [facility] Kyphosis 0 Sp Stone. [facility], [facility] [address] [place] [address], [address], [id number], [place]. tel:[phone] Referring Provider: Prakash Mccauley, [facility] [address] [place], [address]. tel:[phone] Office/Outpa tient Visit,Est, Low [facility], [address], [place], [id number], [place] tel:[phone] [facility] [place] Arthrodesis status Sp Stone. [facility], [address], [address], [id number], [place]. tel:[phone] Referring Provider: Prakash Mccauley, [facility] [address] [place], [address]. tel:[phone] Office/Outpa tient Visit,Est, Low [facility], [address], [place], [place], [id number], [place] tel:[phone] [facility] Encounter for other specified surgical aftercare Sp Stone. [facility], [address] [place] [address], [address], [id number], [place]. tel:[phone] Referring Provider: Prakash Mccauley, [facility] [address] [place], [address]. tel:[phone] [facility], [address] [place] [address], [id number], [place] tel:[phone] [facility] Encounter for other specified surgical aftercare Sp Stone. [facility], [address] [place] [address], [address], [id number], [place]. tel:[phone] Referring Provider: Prakash Mccauley, [facility] [address] [place], [address]. tel:[phone] [facility], [address] [place] [address], [id number], [place] tel:[phone] [facility] Encounter for other specified surgical aftercare Sp Stone. [facility], [address], [address], [id number], [place]. tel:[phone] Referring Provider: Prakash Mccauley, [facility] [address] [place], [address]. tel:[phone] [facility], [address], [place], [place], [id number], [place] tel:[phone] [facility] No Information Chris Meneses. [facility], [address] [place] [address], [place], [address], [place]. tel:[phone] Referring Provider: Prakash Mccauley, [facility] [address] [place], [address]. tel:[phone] [facility], [address], [place], [place], [id number], [place] tel:[phone] [facility] No Information Sp Stone. [facility], [address] [place] [address], [address], [id number], [place]. tel:[phone] Referring Provider: Prakash Mccauley, [facility] [address] [place], [address]. tel:[phone] Office/Outpa tient Visit,Est, Mod [facility], [address] [place] [address], [id number], [place] tel:[phone] [facility] [place] Spinal stenosis, cervical region Sp Stone. [facility], [address] [place] [address], [address], [id number], [place]. tel:[phone] Referring Provider: Prakash Mccauley, [facility] [address] [place], [address]. tel:[phone] Office/Outpa tient Visit,New, Mod [facility], [address] [place] [address], [id number], [place] tel:[phone] [facility] [place] Postlaminect jasmine kyphosisSpin al stenosis, cervical regionArthro desis status No Information Referring Provider: Prakash Mccauley, [facility] [address] [place], [address]. tel:[phone] Office/Outpa tient Visit,Est, Mod Z [facility], [address] [facility] [address], [place], [address], [place] tel:[phone] [facility] No Information No Information Referring Provider: Prakash Mccauley, [facility] [address] [place], [address]. tel:[phone] Z [facility], [address] [facility] [address], [place], [address], [place] tel:[phone] [facility] No Information No Information Referring Provider: Prakash Mccauley, [facility] [address] [place], [address]. tel:[phone] [facility] [place], [address] [facility] [address], [place], [address], [place] tel:[phone] [facility] No Information No Information Referring Provider: Prakash Mccauley, [facility] [address] [place], [address]. tel:[phone] Z [facility], [address] [facility] [address], [place], [address], [place] tel:[phone] [facility] LUPUS ERYTHEMATOSU SOsteopeniaA nxietyGERDCA TARACT NOS No Information Office/Outpa tient Visit,New, Mod Z [facility], [address] [facility] [address], [place], [address], [place] tel:[phone] [facility] No Information No Information Referring Provider: Prakash Mccauley, [facility] [address] [place], [address]. tel:[phone] Family History Family Member Type Diagnosis Age At Onset Mother Problem (finding) hypothyroidism Father Problem (finding) Cancer, unknown Mother Problem (finding) hypertension Problem (finding) Family history of prost ate cancer Payers Payer name Insurance type Covered democrat ID Avaa angus(s) [facility] [id number] Medicare [facility] [id number] 1 Social History Type Description Quantity Date [...]
--- OUTSIDE RECORDS SUMMARY | 2023-06-19 14:27 | XMS_ITS | Encounter Summary ---
Author Name Unknown Organization [facility] Address [address] [place] [address] Care Team Providers Care Jive Developer Name Role Phone Elsewhere, Pcp Primary Care Provider Unavailabl e Reason for Visit * Reason Comments Lab Monitoring Collected 04/27/23 Encounter Details Date Type Department Care Team (Latest Contact Info) Description 04/28/2023 Clinical Communication Division of Rheumatology in [place], [place] [address] [place] [address] El Aldana, ELEVATOR CONSTRUCTOR HYDRAULIC, C.N.P. [address] [place] [address] Lab Monitoring (Collected 04/27/23) Social History Tobacco [...] any clubs o r organizations such as taoist groups, unions, fraternal or athletic groups, or [...] and heating? Not hard at all 11/21/2021 [facility] of Occupat ional Health - Occupational Stress [...] Master's degree (e.g., MA, MS, Sariah, MEd, SVP DIGITAL SALES FOOD & COOKING, OFE) 12/22/2018 Sex and Gender Information Value Date Recorded Sex Assigned at Female 11/21/2021 2:31 PM CDT Gender Identity Female 11/22/2018 10:59 PM CDT Sexual Orientation Straight 11/22/2018 10 :59 PM CDT documented as of this encounter Miscellaneous Notes * Telephone Encounter - Candice Victor, R.N. - 04/28/2023 4:18 PM LEATHER TACKER Documentation note only, patient not contacted ASSESSMENT Rheumatology monitoring labs completed at an external lab on 04/27/23 were reviewed per Rheumatology division parameters. Labs reviewed: absolute neutrophil count, AST, creatinine, hemoglobin, leukocytes, platelets External labs were entered into Labs Tab and sent for scanning. Labs Tab of Chart Review PLAN Patient to continue with current plan of care. HER TACKER documented in this encounter Plan of Treatment Not on file documented as of this encounter Procedures Procedure Name Priority Date/Time Associated Diagnosis Comments CBC WITH DIFFERENTIAL, B Routine 04/27/2023 ASPARTATE AMINOTRANSFERASE (AST), S/P Routine 04/27/2023 CREATININE WITH EGFR, S/P Routine 04/27/2023 documented in this encounter Results * AST (Aspartate Aminotransferase) (04/27/2023) EXT AST 30 12 - 35 [facility] Blood (Blood, Venous) Sabino Scott APRNN.P. LAB BLOOD AD D-ON Performing Organization Address [facility] Co de Phone Number [facility] [address] [place] [address] * Creatinine with Estimated GFR (04/27/2023) EXT Creatinine 0.8 0.5 - 1.5 mg/dL [facility] Blood (Blood, Venous) Citlaly Scott APRN.N.P. LAB BLOOD AD D-ON Performing Organization Address City/[facility]/ZIP Co de Phone Number [facility] [address] [place] [address] * (ABNORMAL) CBC with Differential, Blood (04/27/2023) EXT Platelet Count 261 140 - 440 [facility] EXT Neutrophils 9.5(A) 1.7 - 7 [facility] EXT Hemoglobin 12.7 12 - 16 [facility] EXT Leukocytes 11.8(A) 4.5 - 11.0 [facility] Blood (Blood, Venous) El Aldana APRN, C.N.P. LAB BLOOD AD D-ON [facility] [address] [phone] documented in this encounter Visit Diagnoses Not on filedocumented in this encounter Additional Health Concerns Infection Onset Date Last Indicated Resolved Time Protective Environment 08/17/2022 08/17/2022 documented as of this encounter Care Teams Jive Developer Relationship Specialty Start Date End Date Elsewhere, Pcp PCP - General Internal Medicine 11/20/21 documented as of this encounter
--- OUTSIDE RECORDS SUMMARY | 2023-06-19 14:27 | XMS_ITS | Encounter Summary ---
Author Name Unknown Organization [facility] Address [address] [place] [address] Care Team Providers Care Head Of Data Name Role Phone Elsewhere, Pcp Primary Care Provider Unavailabl e Reason for Visit * Reason Comments Med Refill Encounter Details Date Type Department Care Team (Late st Contact Info) Description 10/28/2022 Refill Division of Rheumatology in [place], [place] [address] [place] [phone] El Aldana, MANAGER OF INFORMATION, C.N.P. [address] [place] [address] Med Refill Social History Tobacco Use Types [...] often do you attend chur ch or temple services? 1 to 4 times per year 11/21/2021 Do you belong to any clubs o r organizations such as rastafarian groups, unions, fraternal or athletic groups, or [...] and heating? Not hard at all 11/21/2021 [facility] of Occupat ional Health - Occupational [...] degree (e.g., MA, MS, Sariah, MEd, SHIPPING TECHNICIAN, OFE) 12/22/2018 Sex and Gender Information [...] Rheum visit: 10/16/22 with El Aldana APRN, VETERINARY MEDICAL OFFICER Future office visit: ordered, not yet [...] documented as of this encounter Care Teams Head Of Data Relationship Specialty Start Date End Date Elsewhere, Pcp PCP - General Internal Medicine 11/20/21 documented as of this encounter
--- OUTSIDE RECORDS SUMMARY | 2023-06-19 14:27 | XMS_ITS | Encounter Summary ---
Author Name Unknown Organization [facility] Address [address] [place] [address] Care Team Providers Care Air Moving Technician Name Role Phone Elsewhere, Pcp Primary Care Provider Unavailabl e Reason for Visit * Reason Comments Med Refill Encounter Details Date Type Department Care Team (Late st Contact Info) Description 01/02/2023 Refill Division of Rheumatology in [place], [place] [address] [place] [phone] El Aldana, LOCKSTITCH COAT JOINER, C.N.P. [address] [place] [address] Med Refill Social History Tobacco Use Types [...] often do you attend chur ch or jew services? 1 to 4 times per year 11/21/2021 Do you belong to any clubs o r organizations such as samaritan groups, unions, fraternal or athletic groups, or [...] and heating? Not hard at all 11/21/2021 [facility] of Occupat ional Health - Occupational Stress [...] place to sleep or slept in a custodial (including now)? No 11/21/2021 Nutrition Answer Date [...] Master's degree (e.g., MA, MS, Sariah, MEd, OVEN STRIPPER, OFE) 12/22/2018 Sex and Gender Information Value [...] Rheum visit: 10/16/22 with El Aldana APRN, GEOGRAPHY FACULTY MEMBER Future office visit: ordered, not yet scheduled [...] documented as of this encounter Care Teams Air Moving Technician Relationship Specialty Start Date End Date Elsewhere, Pcp PCP - General Internal Medicine 11/20/21 documented as of this encounter
--- OUTSIDE RECORDS SUMMARY | 2023-06-19 14:27 | XMS_ITS | Encounter Summary ---
Author Name Unknown Organization [facility] Address [address] [place] [address] Care Team Providers Care Family Medicine Physician Assistant Name Role Phone Elsewhere, Pcp Primary Care Provider Unavailabl e Reason for Visit * Reason Comments Med Refill Encounter Details Date Type Department Care Team (Late st Contact Info) Description 08/17/2022 Refill Division of Rheumatology in [place], [place] [address] [place] [phone] El Aldana, SHIP ERECTOR, C.N.P. [address] [place] [address] Med Refill Social History Tobacco Use Types [...] often do you attend chur ch or taoism services? 1 to 4 times per year 11/21/2021 Do you belong to any clubs o r organizations such as mandaeism groups, unions, fraternal or athletic groups, or [...] and heating? Not hard at all 11/21/2021 [facility] of Occupat ional Health [...] Master's degree (e.g., MA, MS, Sariah, MEd, ELECTRONICS TECH, OEF) 12/22/2018 Sex and Gender Information Value Date [...] Rheum visit: 11/21/21 with El Aldana APRN, MEDICAL REVIEW COORDINATOR Future office visit: ordered, not yet scheduled Last monitoring labs/eye exam: The eye exam performed outside of [facility], dated was not able to [...] as of this encounter Care Teams Family Medicine Physician Assistant Relationship Specialty Start Date End Date Elsewhere, Pcp PCP - General Internal Medicine 11/20/21 documented as of this encounter
--- OUTSIDE RECORDS SUMMARY | 2023-06-19 14:27 | XMS_ITS ---
Author Name Unknown Organization [facility] Address [address] [place] [address] Care Team Providers Care Millinery Designer Name Role Phone Unavailable Unavailable Unavailable Surgery Details Not on file Complications Check Surgery Details section. Procedure Estimated Blood Loss Check Surgery Details section. Procedure Findings Check Surgery Details section. Procedure Specimens Taken Check Surgery Details section.
--- OUTSIDE RECORDS SUMMARY | 2023-06-19 14:27 | XMS_ITS | Encounter Summary ---
Author Name Unknown Organization [facility] Address [address] [place] [address] Care Team Providers Care Residential Framing Carpenter Name Role Phone Elsewhere, Pcp Primary Care Provider Unavailabl e Reason for Visit * Reason Onset Date Comments Pre-visit Intake 08/03/2022 Encounter Details Date Type Department Care Team (Latest Contact Info) Description 08/03/2022 1:30 PM CDT Clinical Communication Virtual Review in [place], [place] 200 [place], [place] [phone] Pre-visit Intake Social History Tobacco Use Types [...] often do you attend chur ch or confucianist services? 1 to 4 times per year 11/21/2021 Do you belong to any clubs o r organizations such as moravian groups, unions, fraternal or athletic groups, or [...] and heating? Not hard at all 11/21/2021 [facility] of Occupat ional Health - Occupational Stress [...] Master's degree (e.g., MA, MS, Sariah, MEd, PACKAGING MANAGER, OFE) 12/22/2018 Sex and Gender Information Value Date Recorded Sex Assigned at Female 11/21/2021 2:31 PM CDT Gender Identity Female 11/22/2018 10:59 PM CDT Sexual Orientation Straight 11/22/2018 10 :59 PM CDT documented as of this encounter Plan of Treatment Not on file documented as of this encounter Visit Diagnoses Not on filedocumented in this encounter Care Teams Residential Framing Carpenter Relationship Specialty Start Date End Date Elsewhere, Pcp PCP - General Internal Medicine 11/20/21 documented as of this encounter
--- OUTSIDE RECORDS SUMMARY | 2023-06-19 14:27 | XMS_ITS | Clinical Summary ---
Author Name Unknown Organization [facility] Address [address] [place] [address] Care Team Providers Care Chemist Water Purification Name Role Phone Elsewhere, Pcp Primary Care Provider Unavailabl e Source Comments Patient records contain information from all sites at [facility]. For routine questions regarding patient records, call [phone] during business hours, M-F 8:00 AM - 5:00 PM Central Time. Record requests for emergency care only can be directed to [phone] at any time.[facility] Allergies Active Allergy Reactions Criticality Noted [...] 04/28/2023 Clinical Communication Division of Rheumatology in [place], [place] [address] [place] [address] El Aldana, EVE, C.N.P. Lab Monitoring (Collected [...] often do you attend chur ch or hinduism services? 1 to 4 times per year 11/21/2021 Do you belong to any clubs o r organizations such as yazidi groups, unions, fraternal or athletic groups, or [...] and heating? Not hard at all 11/21/2021 [facility] of Occupat ional Health - Occupational Stress [...] degree (e.g., MA, MS, Sariah, MEd, TRACK MACHINE OPERATOR REPAIRER, OFE) 12/22/2018 Sex and Gender Information Value [...] this topic Medical Devices Implanted Type Area Slip Bridge Operator Device Identifier Shelf Expiration Date Model / Serial / Lot Hardware E.G. Pins/Screws/Mushtaq s Hardware e.g. pins/screws /rods N/A: Mouth Screw Biomet 3.5 Hex Lock 4.75 X 20 - Simmons [id number] Implanted:Qty: 1 on 06/15/2016 Hardware e.g. pins/screws /rods Other/Legacy - See Implant Description BioMet Description:Device Manufactu [employer] Body Location - Other. Left. Device Status Text - [id number]. Conversions - Default Historical Implant Device Implanted:06/15 (Quantity not on file) Hip Implant Right: Hip Description:Body Location - Hip R. Device Status Text - Hip Imp. Conversions - Default Historical Implant Device Implanted:06/15 (Quantity not on file) Knee Implant Left: Knee Description:Body Location - Knee L. Device Status Text - Knee Imp. Screw Biomet 3.5 Non-Lock 4.75 X 25 - Simmons [id number] Implanted:Qty: 1 on 06/15/2016 Shoulder Implant Other/Legacy - See Implant Description BioMet Description:Device Manufactu rer wavecatch [employer]. Body Location - Other. Left. Device Status Text - [id number]. Procedures Procedure Name Priority Date/Time Associated Diagnosis Comments ASPARTATE AMINOTRANSFERASE (AST), S/P Routine 04/27/2023 CREATININE WITH EGFR, S/P Routine 04/27/2023 CBC WITH DIFFERENTIAL, B Routine 04/27/2023 from Last 3 Months Results * (ABNORMAL) CBC with Differential, Blood (04/27/2023) EXT Platelet Count 261 140 - 440 [facility] EXT Neutrophils 9.5(A) 1.7 - 7 [facility] EXT Hemoglobin 12.7 12 - 16 [facility] EXT Leukocytes 11.8(A) 4.5 - 11.0 [facility] Blood (Blood, Venous) El Aldana APRN, C.N.P. LAB BLOOD AD D-ON Performing Organization Address City/[facility] Co de Phone Number [facility] [address] [place] [address] * AST (Aspartate Aminotransferase) (04/27/2023) [facility] EXT AST 30 12 - 35 [facility] Blood (Blood, Venous) El Aldana APRN, C.N.P. LAB BLOOD AD D-ON Performing Organization Address City/[facility]/ZIP Co de Phone Number [facility] [address] [phone] * Creatinine with Estimated GFR (04/27/2023) [facility] EXT Creatinine 0.8 0.5 - 1.5 mg/dL [facility] Blood (Blood, Venous) El Aldana APRN, C.N.P. LAB BLOOD AD D-ON Performing Organization Address City/[facility]/ZIP Co de Phone Number [facility] [address] [phone] from Last 3 Months Additional Health Concerns Infection Onset Date Last Indicated Protective Environment 08/17/2022 3 Advance Directives For more information, please contact: [phone] Documents on File Type Date Recorded Patient Investigations Manager Expl anation Advance Directives 11/21/2021 5:50 PM POLS T/MOLST Advance Directives 07/10/2015 12:00 AM [place] document. See document viewer. Care Teams Chemist Water Purification Relationship Specialty Start Date End Date Elsewhere, Pcp PCP - General Internal Medicine 11/20/21
--- OUTSIDE RECORDS SUMMARY | 2023-06-19 14:27 | XMS_ITS | Encounter Summary ---
Author Name Unknown Organization [facility] Address [address] [place] [address] Care Team Providers Care Clinical Data Research Name Role Phone Elsewhere, Pcp Primary Care Provider Unavailabl e Reason for Visit * Reason Comments Med Refill Encounter Details Date Type Department Care Team (Late st Contact Info) Description 10/13/2022 Refill Division of Rheumatology in [place], [place] [address] [place] [phone] El Aldana, HOT DIP PLATER, C.N.P. [address] [place] [address] Med Refill Social History Tobacco Use Types [...] and heating? Not hard at all 11/21/2021 [facility] of Occupat ional Health - [...] Master's degree (e.g., MA, MS, Sariah, MEd, LABOURERS, OFE) 12/22/2018 Sex and Gender Information Value [...] documented as of this encounter Care Teams Clinical Data Research Relationship Specialty Start Date End Date Elsewhere, Pcp PCP - General Internal Medicine 11/20/21 documented as of this encounter
--- OUTSIDE RECORDS SUMMARY | 2023-06-19 14:27 | XMS_ITS | Referral Summary ---
Author Name Unknown Organization [facility] Address [address] [place] [address] Care Team Providers Care Slip Cover Cutter Name Role Phone Elsewhere, Pcp Primary Care Provider Unavailabl e Source Comments Patient records contain information from all sites at [facility]. For routine questions regarding patient records, call [phone] during business hours, M-F 8:00 AM - 5:00 PM Central Time. Record requests for emergency care only can be directed to [phone] at any time.[facility] Encounters Date Type Department Care Team Description 04/28/2023 Clinical Communication Division of Rheumatology in [place], [place] [address] [place] [address] El Aldana, EVE, C.N.P. Lab Monitoring (Collected [...] How often do you attend chur or spiritism services? 1 to 4 times per year [...] hard at all 11/21/2021 [facility] - Occupational Stress Questionnaire [...] Master's degree (e.g., MA, MS, Sariah, MEd, BLACK TOP MACHINE OPERATOR, OFE) 12/22/2018 Sex and Gender Information Value [...] on file Medical Devices Implanted Type Area Ring Spinner Device Identifier Shelf Expiration Date Model / Serial / Lot Hardware E.G. Pins/Screws/Mushtaq s Hardware e.g. pins/screws /rods N/A: Mouth Screw Biomet 3.5 Hex Lock 4.75 X 20 - Simmons [id number] Implanted:Qty: 1 on 06/15/2016 Hardware e.g. pins/screws /rods Other/Legacy - See Implant Description BioMet Description:Device Manufactu rer - [employer] Body Location - Other. Left. Device Status Text - [id number]. Conversions - Default Historical Implant Device Implanted:06/15 (Quantity not on file) Hip Implant Right: Hip Description:Body Location - Hip R. Device Status Text - Hip Imp. Conversions - Default Historical Implant Device Implanted:06/15 (Quantity not on file) Knee Implant Left: Knee Description:Body Location - Knee L. Device Status Text - Knee Imp. Screw Biomet 3.5 Non-Lock 4.75 X 25 - Simmons [id number] Implanted:Qty: 1 on 06/15/2016 Shoulder Implant Other/Legacy - See Implant Description BioMet Description:Device Manufactu rer - [employer]. Body Location - Other. Left. Device Status Text - [id number]. Procedures Procedure Name Priority Date/Time Associated Diagnosis Comments ASPARTATE AMINOTRANSFERASE (AST), S/P Routine 04/27/2023 CREATININE WITH EGFR, S/P Routine 04/27/2023 CBC WITH DIFFERENTIAL, B Routine 04/27/2023 from Last 3 Months Results * (ABNORMAL) CBC with Differential, Blood (04/27/2023) EXT Platelet Count 261 140 - 440 [facility] EXT Neutrophils 9.5(A) 1.7 - 7 [facility] EXT Hemoglobin 12.7 12 - 16 [facility] EXT Leukocytes 11.8(A) 4.5 - 11.0 [facility] Blood (Blood, Venous) El Aldana APRN, C.N.P. LAB BLOOD AD D-ON Performing Organization Address City/[facility]/ZIP Co de Phone Number [facility] [address] [place] [address], [facility] [[email or web address]] [phone] * AST (Aspartate Aminotransferase) (04/27/2023) EXT AST 30 12 - 35 [facility] Blood (Blood, Venous) El Aldana APRN, C.N.P. LAB BLOOD AD D-ON Performing Organization Address City/[facility]/ZIP Co de Phone Number [facility] [address] [place] [address], [facility] [[email or web address]] [phone] * Creatinine with Estimated GFR (04/27/2023) EXT Creatinine 0.8 0.5 - 1.5 mg/dL [facility] Blood (Blood, Venous) El Aldana APRN, C.N.P. LAB BLOOD AD D-ON [facility] [address] [place] [address], [facility] [[email or web address]] [phone] from Last 3 Months Additional Health Concerns Infection Onset Date Last Indicated Protective Environment 08/17/2022 3 Advance Directives For more information, please contact: [phone] Documents on File Type Date Recorded Patient Instrumentation Designer Expl anation Advance Directives 11/21/2021 5:50 PM POLS T/MOLST Advance Directives 07/10/2015 12:00 AM Ashly luong document. See document viewer. Care Teams Slip Cover Cutter Relationship Specialty Start Date End Date Elsewhere, Pcp PCP - General Internal Medicine 11/20/21
--- OUTSIDE RECORDS SUMMARY | 2023-06-19 14:27 | XMS_ITS | Encounter Summary ---
Author Name Unknown Organization [facility] Address [address] [place] [address] Care Team Providers Care Circulation Librarian Name Role Phone Elsewhere, Pcp Primary Care Provider Unavailabl e Encounter Details Date Type Department Care Team (Late st Contact Info) Description 08/20/2022 Clinical Communication Division of Rheumatology in [place], [place] [address] [place] [address] El Aldana, CHIEF OPERATOR HYDROFORMER, C.N.P. [address] [place] [address] Social History Tobacco Use Types Packs/Day Years [...] often do you attend chur ch or restoration services? 1 to 4 times per year [...] and heating? Not hard at all 11/21/2021 [facility] of Occupat ional Health - Occupational Stress [...] Master's degree (e.g., MA, MS, Sariah, MEd, LAMP SHADE ASSEMBLER, OFE) 12/22/2018 Sex and Gender Information Value [...] documented as of this encounter Care Teams Circulation Librarian Relationship Specialty Start Date End Date Elsewhere, Pcp PCP - General Internal Medicine 11/20/21 documented as of this encounter
--- OUTSIDE RECORDS SUMMARY | 2023-06-19 14:27 | XMS_ITS | Encounter Summary ---
Author Name Unknown Organization [facility] Address [address] [place] [address] Care Team Providers Care Manager Logistic Name Role Phone Elsewhere, Pcp Primary Care Provider Unavailabl e Reason for Visit * Reason Comments Med Refill Encounter Details Date Type Department Care Team (Late st Contact Info) Description 02/22/2023 Refill Division of Rheumatology in [place], [place] [address] [place] [phone] Brittany Jauregui, EVE, C.N.P., M.S. [address] [place] [address] Med Refill Social History Tobacco Use Types [...] often do you attend chur ch or christian services? 1 to 4 times per year 11/21/2021 Do you belong to any clubs o r organizations such as rastafari groups, unions, fraternal or athletic groups, or [...] and heating? Not hard at all 11/21/2021 [facility] of Occupat ional Health - Occupational [...] Master's degree (e.g., MA, MS, Sariah, MEd, ADVANCED PRACTICE NURSE, OFE) 12/22/2018 Sex and Gender Information Value [...] Rheum visit: 10/16/22 with El Aldana APRN, MILK PICKUP DRIVER Future office visit: not ordered Last monitoring [...] Panel, Blood (02/25/2023) EXT Alkaline Phosphatase 67 [facility] Blood (Blood, Venous) 02/25/2023 Historical Provider LAB BLOOD NON ADD-ON [facility] [address] [place] [address], [facility] [phone] * EXT Complete Metabolic Panel, Blood (02/25/2023) EXT AST 48 [facility] EXT ALT 25 [facility] EXT Creatinine 0.7 mg/dL [facility] Blood (Blood, Venous) 02/25/2023 Historical Provider LAB BLOOD NON ADD-ON Performing Organization Address City/[facility]/ZIP Co de Phone Number [facility] [address] [place], [place] [phone] [place] [address] * EXT Complete Blood Count, Blood (02/25/2023) EXT Hemoglobin 11.5 [facility] EXT Leukocytes 9.71 [facility] EXT Platelet Count 312 [facility] Blood (Blood, Venous) 02/25/2023 Historical Provider LAB BLOOD NON ADD-ON Performing Organization Address [facility] Co de Phone Number [facility] [address] [phone] documented in this encounter Visit Diagnoses Diagnosis Lupus Erythematosus documented in this encounter Additional Health Concerns Infection Onset Date Last Indicated Resolved Time Protective Environment 08/17/2022 08/17/2022 documented as of this encounter Care Teams Manager Logistic Relationship Specialty Start Date End Date Elsewhere, Pcp PCP - General Internal Medicine 11/20/21 documented as of this encounter
--- OUTSIDE RECORDS SUMMARY | 2023-06-19 14:27 | XMS_ITS | Encounter Summary ---
Author Name Unknown Organization [facility] Address [address] [place] [address] Care Team Providers Care Water Safety Teacher Name Role Phone Elsewhere, Pcp Primary Care Provider Unavailabl e Reason for Referral * Outpatient (Routine) - Authorized Specialty Diagnoses / Procedures Referred By Navin choi Referred To Contact Ophthalmology Diagnoses High Risk Medication Procedures Ophthalmology - Plaquenil screen eConsult El Aldana APRN, C.N.P. [address] [place] [phone] [facility] Referral ID Status Reason Start Date Expiration Date V isits Requested Visits Authorized [id number] Authorized 10/16/2022 10/16/2023 1 1 Reason for Visit * Outpatient (Routine) - Closed Specialty Diagnoses / Procedures Referred By Navin choi Referred To Contact Rheumatology El Aldana APRN, C.N.P. [address] [place] [phone] [facility] Referral ID Status Reason Start Date Expiration Date Visits Re quested Visits Authorized [id number] Closed 10/07/2022 10/06/2025 1 1 Encounter Details Date Type Department Care Team (Latest Contact Info) Description 10/16/2022 3:30 PM CDT Virtual Visit Division of Rheumatology in [place], [place] [address] [place] [phone] El Aldana APRN, C.N.P. [address] [place] [address] Lupus Systemic Erythematosus (HCC) (Primary Dx); High [...] How often do you attend chur or muslim services? 1 to 4 times per year 11/21/2021 Do you belong to any clubs o r organizations such as tenriism groups, unions, fraternal or athletic groups, or [...] and heating? Not hard at all 11/21/2021 [facility] of Occupat ional Health - Occupational Stress [...] place to sleep or slept in a long term (including now)? No 11/21/2021 Nutrition Answer Date [...] Master's degree (e.g., MA, MS, Sariah, MEd, DEPUTY CORONER, OFE) 12/22/2018 Sex and Gender Information Value Date Recorded Sex Assigned at Female 11/21/2021 2:31 PM CDT Gender Identity Female 11/22/2018 10:59 PM CDT Sexual Orientation Straight 11/22/2018 10 :59 PM CDT documented as of this encounter Progress Notes * El Aldana APRN, C.N.P. - 10/16/2022 3:30 PM CDT SUBJECTIVE CHIEF COMPLAINT / REASON FOR VISIT The patient requested this bds-gnxv-eg-face phone visit for SLE, medication safety. HISTORY OF PRESENT ILLNESS Ms. Frost was last seen 11/21/2021 in follow up. She reports today that things are stable. She is open to pursuing eye testing here. She was told by her ophthalmology provider in [place] that they would not be able to [...] documented as of this encounter Care Teams Water Safety Teacher Relationship Specialty Start Date End Date Elsewhere, Pcp PCP - General Internal Medicine 11/20/21 documented as of this encounter
--- OUTSIDE RECORDS SUMMARY | 2023-06-19 14:27 | XMS_ITS | Encounter Summary ---
Author Name Unknown Organization [facility] Address [address] [place] [address] Care Team Providers Care Spooling Operator Name Role Phone Elsewhere, Pcp Primary Care Provider Unavailabl e Reason for Visit * Reason Onset Date Comments renewal of med monitoring letter 02/24/2023 Taking MTX Encounter Details Date Type Department Care Team (Latest Contact Info) Description 02/24/2023 Clinical Communication Division of Rheumatology in [place], [place] [address] [place] [phone] El Aldana, DIRECTOR OF BLOOD, C.N.P. [address] [place] [phone] renewal of med monitoring letter (Taking MTX) [...] often do you attend chur ch or islam services? 1 to 4 times per year 11/21/2021 Do you belong to any clubs o r organizations such as denominational groups, unions, fraternal or athletic groups, or [...] and heating? Not hard at all 11/21/2021 [facility] - Occupational Stress [...] Master's degree (e.g., MA, MS, Sariah, MEd, THREAD MILLING MACHINE SET UP OPERATOR, OFE) 12/22/2018 Sex and Gender Information [...] documented as of this encounter Care Teams Spooling Operator Relationship Specialty Start Date End Date Elsewhere, Pcp PCP - General Internal Medicine 11/20/21 documented as of this encounter
--- OUTSIDE RECORDS SUMMARY | 2023-06-19 14:27 | XMS_ITS | Encounter Summary ---
Author Name Unknown Organization [facility] Address [address] [place] [address] Care Team Providers Care Leather Cleaner Name Role Phone Elsewhere, Pcp Primary Care Provider Unavailabl e Reason for Visit * Reason Comments Med Refill Encounter Details Date Type Department Care Team (Late st Contact Info) Description 09/26/2022 Refill Division of Rheumatology in [place], [place] [address] [place] [phone] El Aldana, CLUTCH OPERATOR, C.N.P. [address] [place] [address] Med Refill Social History Tobacco Use Types [...] any clubs o r organizations such as oriental orthodox groups, unions, fraternal or athletic groups, [...] and heating? Not hard at all 11/21/2021 [facility] of Occupat ional Health - [...] Master's degree (e.g., MA, MS, Sariah, MEd, ADVERTISING SPECIALIST, OFE) 12/22/2018 Sex and Gender Information [...] Rheum visit: 11/21/21 with El Aldana APRN, SUPERVISOR DUMPING Future office visit: ordered, not yet scheduled [...] documented as of this encounter Care Teams Leather Cleaner Relationship Specialty Start Date End Date Elsewhere, Pcp PCP - General Internal Medicine 11/20/21 documented as of this encounter
--- OUTSIDE RECORDS SUMMARY | 2023-06-19 14:27 | XMS_ITS | Encounter Summary ---
Author Name Unknown Organization [facility] Address [address] [place] [address] Care Team Providers Care Supervisor Coal Handling Name Role Phone Elsewhere, Pcp Primary Care Provider Unavailabl e Reason for Visit * Reason Onset Date Comments Lab Monitoring 02/26/2023 02/25/23 Encounter Details Date Type Department Care Team (Latest Contact Info) Description 02/26/2023 Clinical Communication Division of Rheumatology in [place], [place] [address] [place] [address] El Aldana, EVE, C.N.P. [address] [place] [address] Lab Monitoring (02/25/23) Social History Tobacco Use [...] often do you attend chur ch or latter day services? 1 to 4 times per year 11/21/2021 Do you belong to any clubs o r organizations such as judaism groups, unions, fraternal or athletic groups, or [...] and heating? Not hard at all 11/21/2021 [facility] - Occupational Stress Questionnaire [...] Master's degree (e.g., MA, MS, Sariah, MEd, FLOOR GRINDER, OFE) 12/22/2018 Sex and Gender Information Value [...] documented as of this encounter Care Teams Supervisor Coal Handling Relationship Specialty Start Date End Date Elsewhere, Pcp PCP - General Internal Medicine 11/20/21 documented as of this encounter
--- OUTSIDE RECORDS SUMMARY | 2023-06-19 14:28 | XMS_ITS | Encounter Summary ---
Author Name Unknown Organization [facility] Address [address] [place] [address] Care Team Providers Care Investigator Name Role Phone Elsewhere, Pcp Primary Care Provider Unavailabl e Reason for Visit * Reason Onset Date Comments Subcutaneous MTX 07/28/2022 Encounter Details Date Type Department Care Team (Latest Contact Info) Description 07/28/2022 Clinical Communication Division of Rheumatology in [place], [place] [address] [place] [address] El Aldana, CERAMIC MOLD DESIGNER, C.N.P. [address] [place] [address] Subcutaneous MTX Social History Tobacco Use Types [...] and heating? Not hard at all 11/21/2021 [facility] of Occupat ional Health - Occupational Stress [...] Master's degree (e.g., MA, MS, Sariah, MEd, EDUCATIONAL ADMINISTRATION TEACHER, OFE) 12/22/2018 Sex and Gender Information [...] on filedocumented in this encounter Care Teams Investigator Relationship Specialty Start Date End Date Elsewhere, Pcp PCP - General Internal Medicine 11/20/21 documented as of this encounter
--- OUTSIDE RECORDS SUMMARY | 2023-06-19 14:28 | XMS_ITS | Encounter Summary ---
Author Name Unknown Organization [facility] Address [address] [place] [address] Care Team Providers Care Screen Maker Name Role Phone Elsewhere, Pcp Primary Care Provider Unavailabl e Reason for Visit * Reason Comments Med Refill Encounter Details Date Type Department Care Team (Late st Contact Info) Description 07/28/2022 Refill Division of Rheumatology in [place], [place] [address] [place] [phone] El Aldana, REHABILITATION COUNSELLOR, C.N.P. [address] [place] [address] Med Refill Social History Tobacco Use Types [...] Master's degree (e.g., MA, MS, Sariah, MEd, ADMISSIONS SUPERVISOR, OFE) 12/22/2018 Sex and Gender Information [...] Erythematosus documented in this encounter Care Teams Screen Maker Relationship Specialty Start Date End Date Elsewhere, Pcp PCP - General Internal Medicine 11/20/21 documented as of this encounter
--- OUTSIDE RECORDS SUMMARY | 2023-06-19 14:28 | XMS_ITS | Encounter Summary ---
Author Name Unknown Organization [facility] Address [address] [place] [address] Care Team Providers Care Emergency Department Technician Name Role Phone Elsewhere, Pcp Primary Care Provider Unavailabl e Reason for Visit * Reason Comments Med Refill Encounter Details Date Type Department Care Team (Late st Contact Info) Description 05/28/2022 Refill Division of Rheumatology in [place], [place] [address] [place] [phone] El Aldana, MACHINE ROOM OPERATOR, C.N.P. [address] [place] [address] Med Refill Social History Tobacco Use Types [...] heating? Not hard at all 11/21/2021 [facility] of Occupat ional Health - Occupational [...] place to sleep or slept in a skilled nursing (including now)? No 11/21/2021 Nutrition Answer Date [...] Master's degree (e.g., MA, MS, Sariah, MEd, OIL GAUGER, OFE) 12/22/2018 Sex and Gender Information Value [...] inform them of reasoning for Rx denial. F OF SERVICE documented in this encounter Plan of Treatment Not on file documented as of this encounter Visit Diagnoses Not on filedocumented in this encounter Care Teams Emergency Department Technician Relationship Specialty Start Date End Date Elsewhere, Pcp PCP - General Internal Medicine 11/20/21 documented as of this encounter
--- OUTSIDE RECORDS SUMMARY | 2023-06-19 14:28 | XMS_ITS | Encounter Summary ---
Author Name Unknown Organization [facility] Address [address] [place] [address] Care Team Providers Care Track Subway Repair Supervisor Name Role Phone Elsewhere, Pcp Primary Care Provider Unavailabl e Reason for Visit * Reason Comments Med Refill Encounter Details Date Type Department Care Team (Late st Contact Info) Description 07/03/2022 Refill Division of Rheumatology in [place], [place] [address] [place] [phone] El Aldana, WIRE COINER, C.N.P. [address] [place] [address] Med Refill Social History Tobacco Use Types [...] often do you attend chur ch or yarsani services? 1 to 4 times per year [...] to sleep or slept in a senior care (including now)? No 11/21/2021 Nutrition Answer Date [...] Master's degree (e.g., MA, MS, Sariah, MEd, VICE PRESIDENT PLANNING, OFE) 12/22/2018 Sex and Gender Information Value [...] M.S.N., RCorazonNCorazon, EvieSCorazonRCorazonNCorazon at 07/03/2022 3:32 PM HOME PERFORMANCE LABORER * Telephone Encounter - Xenia Boss R.N. - 07/03/2022 12:20 PM CST Portal message sent to patient to clarify Prednisone amount needed. Should have one month left of 5mg tablets. Will clarify if needs a flare dosing. PERFORMANCE LABORER documented in this encounter Plan of Treatment Not on file documented as of this encounter Visit Diagnoses Diagnosis Lupus Systemic Erythematosus (HCC) documented in this encounter Care Teams Track Subway Repair Supervisor Relationship Specialty Start Date End Date Elsewhere, Pcp PCP - General Internal Medicine 11/20/21 documented as of this encounter
--- OUTSIDE RECORDS SUMMARY | 2023-06-19 14:28 | XMS_ITS | Encounter Summary ---
Author Name Unknown Organization [facility] Address [address] [place] [address] Care Team Providers Care Management Lead Name Role Phone Elsewhere, Pcp Primary Care Provider Unavailabl e Reason for Visit * Reason Comments Med Refill Encounter Details Date Type Department Care Team (Late st Contact Info) Description 07/22/2022 Refill Division of Rheumatology in [place], [place] [address] [place] [phone] Brittany Jauregui, EVE, C.N.P., M.S. [address] [place] [address] Med Refill Social History Tobacco Use Types [...] often do you attend chur ch or alevism services? 1 to 4 times per year [...] and heating? Not hard at all 11/21/2021 [facility] of Occupat ional Health - [...] place to sleep or slept in a jail (including now)? No 11/21/2021 Nutrition Answer Date [...] Master's degree (e.g., MA, MS, Sariah, MEd, AUDIOLOGY DIRECTOR, OFE) 12/22/2018 Sex and Gender Information Value Date Recorded Sex Assigned at Female 11/21/2021 2:31 PM CDT Gender Identity Female 11/22/2018 10:59 PM CDT Sexual Orientation Straight 11/22/2018 10 :59 PM CDT documented as of this encounter Miscellaneous Notes * Telephone Encounter - Lopez Bojorquez RCorazonN. - 07/27/2022 11:20 AM CDT Resent to [facility] in [place]. * Telephone Encounter - Brittany Francisco - [...] as oral. * Telephone Encounter - Jade Gbibs M.S.N., Kimberli, CCorazonM.SCorazonRCorazonNCorazon - 07/24/2022 10:14 AM [...] Erythematosus documented in this encounter Care Teams Management Lead Relationship Specialty Start Date End Date Elsewhere, Pcp PCP - General Internal Medicine 11/20/21 documented as of this encounter
== END 2023-06-19 14:55 | disposition home or self-care (01) ==
PROVIDERS: Emergency Provider Family Medicine; PCP Family Medicine
DX: L03.116 Cellulitis of left lower limb (principal); L03.115 Cellulitis of right lower limb; D84.9 Immunodeficiency, unspecified; R60.9 Edema, unspecified
CPT/HCPCS: 99283; 99284

== ENCOUNTER 2023-08-12 19:42 | Emergency (ER) | payer MEDICARE, BC, SELFPAY ==
[2023-08-12 19:59] VITALS: BP 128/76; PULSE 98; RESP 22; TEMP 36.9; O2SAT 97; BMI 28.7
[2023-08-12 20:03] LABS: Appearance Urine Clear (Clear); Bilirubin Urine Negative (Negative); Blood Urine 3+ (Negative); Color Urine Yellow (Yellow); Glucose Urine Negative (Negative); Ketones Urine Negative (Negative); Leukocyte Esterase Urine 3+ (Negative); Nitrite Urine Negative (Negative); Protein Urine 1+ (Negative); Specific Gravity Urine 1.015 (1.000-1.030); Urobilinogen Urine 0.2 (0.2-1.0)
[2023-08-12 20:12] LABS: Bacteria Urine Few; RBC Urine 50-100 (0-2); WBC Urine >100 (0-5)
--- NOTE | 2023-08-12 20:18 | ED_ITS ---
HPI - General Adult General Date Seen: 08/12/23 Chief complaint: Urogenital Problems, Female Stated complaint: Poss UTI based on history Time Seen by Provider: 08/12/23 20:10 History of Present Illness HPI narrative: 78-year-old female with a past medical history of lupus, autoimmune disease (on chronic prednisone) adrenal insufficiency, history of DVT on Coumadin, spinal stenosis, scoliosis, frequent UTIs, peripheral edema, cardiomyopathy. She presents to the ER this evening for evaluation of painful urination that began yesterday. No other symptoms. No fever or chills. No nausea or vomiting. No weakness or body aches. No flank pain. No abdominal pain. She has had previous UTIs, but none for a couple of years. She notices symptoms of UTI pretty well. Her daughter notes that he was just on a course of cephalexin for cellulitis and completed that within the last week. Her cellulitis has gotten better. She has a history of frequent UTIs. Most recent urine culture in our system was 05/06/2022. It grew E coli, pansensitive. Related Data Home Medications Medication Instructions Recorded Confirmed melatonin 3 mg capsule 3 mg PO HS PRN 01/13/22 07/27/23 omeprazole 20 mg capsule,delayed 20 mg PO DAILY 05/13/23 07/27/23 release prednisone 10 mg tablet 10 mg PO DAILY 05/13/23 07/27/23 levothyroxine 25 mcg tablet 25 mcg PO DAILY 06/05/23 07/27/23 loratadine 10 mg tablet 10 mg PO DAILY allergic symptoms 06/05/23 07/27/23 magnesium oxide 400 mg PO DAILY@12 06/05/23 07/27/23 clobetasol 0.05 % lotion 1 applic topical BID PRN 07/13/23 07/27/23 Previous Rx's Medication Instructions Recorded estradiol 0.01% (0.1 mg/gram) 0.5 g vaginal QWEEK #42.5 grams 01/30/22 vaginal cream bupropion HCl 150 mg 24 hr tablet, 150 mg PO DAILY #90 tabs 02/25/23 extended release fluconazole 150 mg tablet 150 mg PO QWEEK #12 tabs 02/25/23 furosemide 40 mg tablet 40 mg PO DAILY #90 tabs 02/25/23 losartan 25 mg tablet 25 mg PO DAILY #90 tabs 02/25/23 metoprolol succinate 25 mg 25 mg PO DAILY #90 tabs 02/25/23 tablet,extended release 24 hr hydroxychloroquine 200 mg tablet 200 mg PO .Daily At 12:00PM #90 04/19/23 tabs gabapentin 400 mg capsule 1,200 mg (3 x 400 mg) PO BID #540 05/14/23 caps hydrocodone 5 mg-acetaminophen 325 1 tab PO QDAY pain 30 days #30 tabs 07/13/23 mg tablet warfarin 1 mg tablet 1 mg PO QDAY #30 tabs 07/27/23 potassium chloride 10 mEq 20 meq (2 x 10 mEq) PO BID #120 08/02/23 capsule,extended release caps warfarin 3 mg tablet 1.5 mg PO DAILY #90 tabs 08/11/23 nitrofurantoin 100 mg PO BID #14 caps 08/12/23 monohydrate/macrocrystals 100 mg capsule (Macrobid) phenazopyridine 100 mg tablet 100 mg PO TID PRN pain #7 tabs 08/12/23 (Pyridium) Allergies Allergy/AdvReac Type Severity Reaction Status Date / Time amitriptyline Allergy Severe disorientat Verified 07/27/23 15:37 ion penicillin V Allergy Severe upset Verified 07/27/23 15:37 stomach and rash perphenazine Allergy Severe disorientat Verified 07/27/23 15:37 ion adhesive Allergy Unknown Unknown Verified 07/27/23 15:37 bee venom protein (honey bee) AdvReac Severe Anaphylaxis Verified 07/27/23 15:37 latex AdvReac Severe Rash Verified 07/27/23 15:37 amoxicillin AdvReac Intermediate Diarrhea Verified 07/27/23 15:37 Tricyclic antidepressant Allergy Severe disorientat Uncoded 07/27/23 15:37 ion Bee venom Allergy Mild swells and Uncoded 07/27/23 15:37 area turns red Sulfa drugs Allergy Unknown Unknown Uncoded 07/27/23 15:37 Clavulanate AdvReac Intermediate Diarrhea Uncoded 07/27/23 15:37 [facility] Medical History Atrial fibrillation ?I48.91 - Unspecified atrial fibrillation (ICD-10) Hypothyroidism ?E03.9 - Hypothyroidism, unspecified (ICD-10) Left leg cellulitis ?L03.116 - Cellulitis of left lower limb (ICD-10) Systemic lupus erythematosus ?M32.9 - Systemic lupus erythematosus, unspecified (ICD-10) Anemia ?D64.9 - Anemia, unspecified (ICD-10) Psoriasis ?L40.9 - Psoriasis, unspecified (ICD-10) Anemia ?D64.9 - Anemia, unspecified (ICD-10) Yeast dermatitis ?B37.2 - Candidiasis of skin and nail (ICD-10) Environmental allergies ?Z91.09 - Other allergy status, other than to drugs and biological substances (ICD-10) Osteoarthritis of left hip ?M16.12 - Unilateral primary osteoarthritis, left hip (ICD-10) Osteoarthritis of right knee ?M17.11 - Unilateral primary osteoarthritis, right knee (ICD-10) Osteoarthritis of right shoulder ?M19.011 - Primary osteoarthritis, right shoulder (ICD-10) Urethral caruncle ?N36.2 - Urethral caruncle (ICD-10) Weakness ?R53.1 - Weakness (ICD-10) Urinary tract infection ?N39.0 - Urinary tract infection, site not specified (ICD-10) Unsteady gait ?R26.81 - Unsteadiness on feet (ICD-10) Tubular adenoma ?D36.9 - Benign neoplasm, unspecified site (ICD-10) Spinal stenosis ?M48.00 - Spinal stenosis, site unspecified (ICD-10) 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 (ICD-10) Seasonal allergic rhinitis (01/27/12) ?J30.2 - Other seasonal allergic rhinitis (ICD-10) Scoliosis (01/27/12) ?M41.9 - Scoliosis, unspecified (ICD-10) Right shoulder pain ?M25.511 - Pain in right shoulder (ICD-10) Pyelonephritis ?N12 - Tubulo-interstitial nephritis, not specified as acute or chronic (ICD- 10) Positive colorectal cancer screening using DNA-based stool test ?R19.5 - Other fecal abnormalities (ICD-10) Physician Orders for Life-Sustaining Treatment (09/28/17) ?Z78.9 - Other specified health status (ICD-10) Physical deconditioning ?R53.81 - Other malaise (ICD-10) Physical debility ?R53.81 - Other malaise (ICD-10) Peripheral edema (05/12/10) ?R60.9 - Edema, unspecified (ICD-10) Osteopenia (05/26/11) ?M85.80 - Other specified disorders of bone density and structure, unspecified site (ICD-10) Nonspecific colitis ?K52.9 - Noninfective gastroenteritis and colitis, unspecified (ICD-10) Long-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 - Immunodeficiency due to drugs (ICD-10) ?T38.0X5A - Adverse effect of glucocorticoids and synthetic analogues, initial encounter (ICD-10) ?Z79.52 - [facility] (current) use of systemic steroids (ICD-10) Hypokalemia ?E87.6 - Hypokalemia (ICD-10) Hypertension (08/16/12) ?I10 - Essential (primary) hypertension (ICD-10) Hyperlipidemia ?E78.5 - Hyperlipidemia, unspecified (ICD-10) High C-reactive protein ?R79.82 - Elevated C-reactive protein (CRP) (ICD-10) Health care directive on file (07/05/15) ?Z78.9 - Other specified health status (ICD-10) Gastroesophageal reflux disease (04/11/10) ?K21.9 - Gastro-esophageal reflux disease without esophagitis (ICD-10) Dilated cardiomyopathy (05/12/10) ?I42.0 - Dilated cardiomyopathy (ICD-10) Dilated bile duct ?K83.8 - Other specified diseases of biliary tract (ICD-10) Depression (08/16/12) ?F32.A - Depression, unspecified (ICD-10) Constipation ?K59.00 - Constipation, unspecified (ICD-10) Colitis ?K52.9 - Noninfective gastroenteritis and colitis, unspecified (ICD-10) Chronic pain syndrome ?G89.4 - Chronic pain syndrome (ICD-10) Chronic pain ?G89.29 - Other chronic pain (ICD-10) Cellulitis ?L03.90 - Cellulitis, unspecified (ICD-10) Atrial fibrillation with rapid ventricular response ?I48.91 - Unspecified atrial fibrillation (ICD-10) Anxiety (04/11/10) ?F41.9 - Anxiety disorder, unspecified (ICD-10) Anticoagulation goal of INR 2 to 3 ?Z51.81 - Encounter for therapeutic drug level monitoring (ICD-10) ?Z79.01 - rat exterminator (current) use of anticoagulants (ICD-10) Anemia of chronic disease ?D63.8 - Anemia in other chronic diseases classified elsewhere (ICD-10) Abnormal liver function tests ?R79.89 - Other specified abnormal findings of blood chemistry (ICD-10) Long-term (current) use of anticoagulants, INR goal 2.0-3.0 ?Z79.01 - rat exterminator (current) use of anticoagulants (ICD-10) Knee osteoarthritis ?M17.10 - Unilateral primary osteoarthritis, unspecified knee (ICD-10) POLST (Physician Orders for Life-Sustaining Treatment) ?Z78.9 - Other specified health status (ICD-10) Irritation of right ear ?H93.8X1 - Other specified disorders of right ear (ICD-10) History of pulmonary embolism (2017) ?Z86.711 - Personal history of pulmonary embolism (ICD-10) History of peptic ulcer ?Z87.11 - Personal history of peptic ulcer disease (ICD-10) History of deep vein thrombosis (DVT) of lower extremity (2016) ?Z86.718 - Personal history of other venous thrombosis and embolism (ICD-10) Head injury with loss of consciousness ?S06.9X9A - Unspecified intracranial injury with loss of consciousness of unspecified duration, initial encounter (ICD-10) Surgical History S/P foot surgery, right (08/28/14) ?Z98.890 - Other specified postprocedural states (ICD-10) 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) ?Z96.619 - Presence of unspecified artificial shoulder joint (ICD-10) Status post lumbar spinal fusion (04/11/10) ?Z98.1 - Arthrodesis status (ICD-10) Status post cervical spinal arthrodesis (09/2017) ?Z98.1 - Arthrodesis status (ICD-10) History of total hip replacement (05/12/10) ?Z96.649 - Presence of unspecified artificial hip joint (ICD-10) History of left knee replacement (05/12/10) ?Z96.652 - Presence of left artificial knee joint (ICD-10) History of hysterectomy (04/11/10) ?Z90.710 - Acquired absence of both cervix and uterus (ICD-10) History of colonoscopy (05/18/19) ?Z98.890 - Other specified postprocedural states (ICD-10) History of cholecystectomy (05/12/10) ?Z90.49 - Acquired absence of other specified parts of digestive tract (ICD- 10) Family History Brother Coronary artery disease Father Cancer Social History Narrative: Patient lives at [facility]. Code status is DNR. Healthcare power of commercial attorney is her daughter Giselle from [place]. She quit smoking many years ago. Has been chewing nicotine gum since then. She does not drink alcohol What is your current living situation?: I presently have a place to live Problems where you live: no known problems Problems where you live details: no known problems In the past 12 months, utilities in danger of being shut off: no In past 12 months, lack of transportation kept you from medical appts, meetings, work, or getting things needed for daily living: no In the past 12 mos, have been you worried that your food would run out before you had money to buy more?: never true In the past 12 mos, the food you bought just didn't last and you didn't have money to buy more?: never true Highest level of school completed/degree received: 12th grade, no diploma Smoking Status: Never smoker Second hand tobacco smoke exposure: No How often do you have a drink containing alcohol: never How often do you have six or more drinks on one occasion: Never AUDIT-C Alcohol total score: 0 Non-prescribed substance use: denies use Caffeine: Yes (4-5 cups daily) How often does anyone, including family, friends and others, physically hurt you : never How often does anyone, including family, friends and others, insult or talk down to you: never How often does anyone, including family, friends and others, threaten you with harm: never How often does anyone, including family, friends and others, scream or curse at you: never Little interest or pleasure in doing things: several days Feeling down, depressed, or hopeless: more than half the days service: No Exam Narrative: Exam Narrative: Constitutional: Appears well-developed and well-nourished. Alert. Conversant. Non toxic. Joint degenerative changes and body habitus consistent with autoimmune RA and chronic prednisone use. HENT: Head: Atraumatic. Nose: Nose normal. Mouth/Throat: Oral mucosa is clear and moist. Eyes: Conjunctivae normal. EOM normal. Pupils equal, round, and reactive to light. No scleral icterus. Neck: Normal range of motion. Neck supple. No tracheal deviation present. Cardiovascular: Normal rate, regular rhythm. Pulmonary/Chest: Effort normal. No stridor. No respiratory distress. Abdominal: Soft. Bowel sounds normal. No distension. No mass. No tenderness. No rebound. No guarding. No CVA tenderness. Musculoskeletal: No tenderness. Neurological: Alert and oriented to person, place, and time. Normal strength. CN II-VII intact. No sensory deficit. GCS eye subscore is 4. GCS verbal subscore is 5. GCS motor subscore is 6. Normal coordination Skin: Skin is warm and dry. No rash noted. No pallor. Normal capillary refill. Psychiatric: Normal mood. Normal affect. Const: Vital Signs, click to edit/add: Vital Signs - 24 hr 08/12/23 19:59 Temperature 98.4 F Pulse Rate [Pulse Oximeter] 98 Respiratory Rate 22 Blood Pressure [Ri ght Upper Arm] 128/76 Pulse Oximetry 97 Oxygen Delivery Me thod Room Air Course Vital Signs Vital signs: Initial Vital Signs Temperature 98.4 F 08/12/23 19:59 Temperature Source Temporal Artery Scan 08/12/23 19:59 Pulse Rate 98 08/12/23 19:59 Pulse Rhythm Regular 08/12/23 19:59 Respiratory Rate 22 08/12/23 19:59 Blood Pressure 128/76 08/12/23 19:59 Blood Pressure Mean 93 08/12/23 19:59 Blood Pressure Position Sitting 08/12/23 19:59 Pulse Oximetry 97 08/12/23 19:59 Oxygen Delivery Method Room Air 08/12/23 19:59 Vital Signs Temperature 98.4 F 08/12/23 19:59 Pulse Rate 98 08/12/23 19:59 Respiratory Rate 22 08/12/23 19:59 Blood Pressure 128/76 08/12/23 19:59 Pulse Oximetry 97 08/12/23 19:59 Oxygen Delivery Method Room Air 08/12/23 19:59 Temperature 98.4 F 08/12/23 19:59 Pulse Rate 98 08/12/23 19:59 Respiratory Rate 22 08/12/23 19:59 Blood Pressure 128/76 08/12/23 19:59 Pulse Oximetry 97 08/12/23 19:59 Oxygen Delivery Method Room Air 08/12/23 19:59 Medical Decision Making MDM Narrative Medical decision making narrative: This patient presents for evaluation of dysuria that began last night and persisted through today. This clinically is consistent with a urinary tract infection. Urinalysis confirms the infection. There has been no fever, back/flank pain or significant abdominal pain. There is no clinical evidence of pyelonephritis, appendicitis, colitis, diverticulitis or any intraabdominal catastrophe. The patient will be started on antibiotics for the infection. Although she is immunosuppressed on prednisone she is clinically nontoxic, afebrile, and hemodynamically stable. I do not think she needs laboratory workup for admission for IV antibiotics based on current presentation. First dose of Macrobid given here in the ER. Will send home with prescription for Macrobid 100 b.i.d. for 7 days. Also Pyridium for symptomatic control. Return if increasing pain, vomiting, fever, or inability to tolerate the oral antibiotic. Follow up with primary physician is indicated if not improving in 2-3 days. Lab Data Labs: Lab Results 08/12/23 Range/Units 19:56 Urine Color Yellow (Yellow) Urine Appearance Clear (Clear) Urine pH 6.0 (5.0-8.5) Ur Specific Melvin 1.015 (1.000-1.030) Urine Protein 1+ A (Negative) Urine Glucose (UA) Negative (Negative) Urine Ketones Negative (Negative) Urine Blood 3+ A (Negative) Urine Nitrite Negative (Negative) Urine Bilirubin Negative (Negative) Urine Urobilinogen 0.2 (0.2-1.0) Ur Leukocyte Esterase 3+ A (Negative) Urine RBC 50-100 A (0-2) Urine WBC >100 A (0-5) Ur Squamous Epith Cells None (None-Few) Urine Bacteria Few A (None) Discharge Plan Discharge Clinical Impression: Acute UTI Patient Disposition: Home, Self-Care Condition: Stable Instructions: Urinary Tract Infection in Women (DC) Additional Instructions: As we discussed, please come back to the ER right away if you have worsening symptoms, especially worsening pain in her bladder, fever or chills, nausea or vomiting, or pain in your kidney or flank. Please did take your next dose of antibiotic (Macrobid) tomorrow morning. Continue on the antibiotic for 7 days. It will typically take 1-2 days per the antibiotics to help your infection get better. Prescriptions: New phenazopyridine [Pyridium] 100 mg tablet 100 mg PO TID PRN (Reason: pain) Qty: 7 0RF nitrofurantoin monohyd/m-cryst [Macrobid] 100 mg capsule 100 mg PO BID Qty: 14 0RF Rx Instructions: must administer with a meal/food No Action melatonin 3 mg capsule 3 mg PO HS PRN bupropion HCl 150 mg tablet extended release 24 hr 150 mg PO DAILY Qty: 90 3RF furosemide 40 mg tablet 40 mg PO DAILY Qty: 90 3RF losartan 25 mg tablet 25 mg PO DAILY Qty: 90 3RF metoprolol succinate 25 mg tablet extended release 24 hr 25 mg PO DAILY Qty: 90 3RF fluconazole 150 mg tablet 150 mg PO QWEEK Qty: 12 4RF Patient Comments: takes on Wednesday omeprazole 20 mg capsule,delayed release(DR/EC) 20 mg PO DAILY prednisone 10 mg tablet 10 mg PO DAILY hydrocodone-acetaminophen 5-325 mg tablet 1 tab PO QDAY 30 Days Qty: 30 0RF clobetasol 0.05 % lotion 1 applic topical BID PRN warfarin 1 mg tablet 1 mg PO QDAY Qty: 30 0RF Protocol: Dose Management Condition: Wednesday Dose/Route: 1 mg Instruction: 1 x 1 mg tablet Condition: Wednesday Dose/Route: 1.5 mg Instruction: 0.5 x 3 mg tablets Condition: Wednesday Dose/Route: 1 mg Instruction: 1 x 1 mg tablet Condition: Wednesday Dose/Route: 1.5 mg Instruction: 0.5 x 3 mg tablets Condition: Dose/Route: 1 mg Instruction: 1 x 1 mg tablet Condition: Wednesday Dose/Route: 1.5 mg Instruction: 0.5 x 3 mg tablets Condition: Wednesday Dose/Route: 1 mg Instruction: 1 x 1 mg tablet Protocol Text: Adjustment Start Date: Wednesday08/11/23 INR Value: 1.1 INR Date: 08/11/23 Recheck Date: 08/18/23 levothyroxine 25 mcg tablet 25 mcg PO DAILY magnesium oxide 400 mg magnesium tablet 400 mg PO DAILY@12 loratadine 10 mg tablet 10 mg PO DAILY estradiol 0.01 % (0.1 mg/gram) cream 0.5 g vaginal QWEEK Qty: 42.5 1RF Rx Instructions: Use nightly for two weeks, then decrease use to twice weekly for 2 weeks, then use once weekly. hydroxychloroquine 200 mg tablet 200 mg PO .Daily At 12:00PM Qty: 90 0RF gabapentin 400 mg capsule 1,200 mg PO BID Qty: 540 3RF potassium chloride 10 mEq capsule, extended release 20 meq PO BID Qty: 120 0RF warfarin 3 mg tablet 1.5 mg PO DAILY Qty: 90 0RF Protocol: Dose Management Condition: Wednesday Dose/Route: 1 mg Instruction: 1 x 1 mg tablet Condition: Wednesday Dose/Route: 1.5 mg Instruction: 0.5 x 3 mg tablets Condition: Wednesday Dose/Route: 1 mg Instruction: 1 x 1 mg tablet Condition: Wednesday Dose/Route: 1.5 mg Instruction: 0.5 x 3 mg tablets Condition: Dose/Route: 1 mg Instruction: 1 x 1 mg tablet Condition: Wednesday Dose/Route: 1.5 mg Instruction: 0.5 x 3 mg tablets Condition: Wednesday Dose/Route: 1 mg Instruction: 1 x 1 mg tablet Protocol Text: Adjustment Start Date: Wednesday08/11/23 INR Value: 1.1 INR Date: 08/11/23 Recheck Date: 08/18/23 Follow Up/Referrals: Prakash Moore MD [Primary Care Provider] - Stand Alone Forms: [employer] Info Instructions
--- NOTE | 2023-08-14 11:18 | ED_ITS ---
HPI - General Adult General Chief complaint: Urogenital Problems, Female Stated complaint: Poss UTI based on history Time Seen by Provider: 08/12/23 20:10 History of Present Illness HPI narrative: Addendum to ER note from 08/11. Patient was seen 2 days ago for UTI symptoms and started on Macrobid. Urine culture is growing pansensitive E coli. Sensitive to Macrobid. No need to change antibiotics. Related Data Home Medications Medication Instructions Recorded Confirmed melatonin 3 mg capsule 3 mg PO HS PRN 01/13/22 07/27/23 omeprazole 20 mg capsule,delayed 20 mg PO DAILY 05/13/23 07/27/23 release prednisone 10 mg tablet 10 mg PO DAILY 05/13/23 07/27/23 levothyroxine 25 mcg tablet 25 mcg PO DAILY 06/05/23 07/27/23 loratadine 10 mg tablet 10 mg PO DAILY allergic symptoms 06/05/23 07/27/23 magnesium oxide 400 mg PO DAILY@12 06/05/23 07/27/23 clobetasol 0.05 % lotion 1 applic topical BID PRN 07/13/23 07/27/23 Previous Rx's Medication Instructions Recorded estradiol 0.01% (0.1 mg/gram) 0.5 g vaginal QWEEK #42.5 grams 01/30/22 vaginal cream bupropion HCl 150 mg 24 hr tablet, 150 mg PO DAILY #90 tabs 02/25/23 extended release fluconazole 150 mg tablet 150 mg PO QWEEK #12 tabs 02/25/23 furosemide 40 mg tablet 40 mg PO DAILY #90 tabs 02/25/23 losartan 25 mg tablet 25 mg PO DAILY #90 tabs 02/25/23 metoprolol succinate 25 mg 25 mg PO DAILY #90 tabs 02/25/23 tablet,extended release 24 hr hydroxychloroquine 200 mg tablet 200 mg PO .Daily At 12:00PM #90 04/19/23 tabs gabapentin 400 mg capsule 1,200 mg (3 x 400 mg) PO BID #540 05/14/23 caps hydrocodone 5 mg-acetaminophen 325 1 tab PO QDAY pain 30 days #30 tabs 07/13/23 mg tablet warfarin 1 mg tablet 1 mg PO QDAY #30 tabs 07/27/23 potassium chloride 10 mEq 20 meq (2 x 10 mEq) PO BID #120 08/02/23 capsule,extended release caps warfarin 3 mg tablet 1.5 mg PO DAILY #90 tabs 08/11/23 nitrofurantoin 100 mg PO BID #14 caps 08/12/23 monohydrate/macrocrystals 100 mg capsule (Macrobid) phenazopyridine 100 mg tablet 100 mg PO TID PRN pain #7 tabs 08/12/23 (Pyridium) Allergies Allergy/AdvReac Type Severity Reaction Status Date / Time amitriptyline Allergy Severe disorientat Verified 07/27/23 15:37 ion penicillin V Allergy Severe upset Verified 07/27/23 15:37 stomach and rash perphenazine Allergy Severe disorientat Verified 07/27/23 15:37 ion adhesive Allergy Unknown Unknown Verified 07/27/23 15:37 bee venom protein (honey bee) AdvReac Severe Anaphylaxis Verified 07/27/23 15:37 latex AdvReac Severe Rash Verified 07/27/23 15:37 amoxicillin AdvReac Intermediate Diarrhea Verified 07/27/23 15:37 Tricyclic antidepressant Allergy Severe disorientat Uncoded 07/27/23 15:37 ion Bee venom Allergy Mild swells and Uncoded 07/27/23 15:37 area turns red Sulfa drugs Allergy Unknown Unknown Uncoded 07/27/23 15:37 Clavulanate AdvReac Intermediate Diarrhea Uncoded 07/27/23 15:37 [facility] History Atrial fibrillation ?I48.91 - Unspecified atrial fibrillation (ICD-10) Hypothyroidism ?E03.9 - Hypothyroidism, unspecified (ICD-10) Left leg cellulitis ?L03.116 - Cellulitis of left lower limb (ICD-10) Systemic lupus erythematosus ?M32.9 - Systemic lupus erythematosus, unspecified (ICD-10) Anemia ?D64.9 - Anemia, unspecified (ICD-10) Psoriasis ?L40.9 - Psoriasis, unspecified (ICD-10) Anemia ?D64.9 - Anemia, unspecified (ICD-10) Yeast dermatitis ?B37.2 - Candidiasis of skin and nail (ICD-10) Environmental allergies ?Z91.09 - Other allergy status, other than to drugs and biological substances (ICD-10) Osteoarthritis of left hip ?M16.12 - Unilateral primary osteoarthritis, left hip (ICD-10) Osteoarthritis of right knee ?M17.11 - Unilateral primary osteoarthritis, right knee (ICD-10) Osteoarthritis of right shoulder ?M19.011 - Primary osteoarthritis, right shoulder (ICD-10) Urethral caruncle ?N36.2 - Urethral caruncle (ICD-10) Weakness ?R53.1 - Weakness (ICD-10) Urinary tract infection ?N39.0 - Urinary tract infection, site not specified (ICD-10) Unsteady gait ?R26.81 - Unsteadiness on feet (ICD-10) Tubular adenoma ?D36.9 - Benign neoplasm, unspecified site (ICD-10) Spinal stenosis ?M48.00 - Spinal stenosis, site unspecified (ICD-10) 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 (ICD-10) Seasonal allergic rhinitis (01/27/12) ?J30.2 - Other seasonal allergic rhinitis (ICD-10) Scoliosis (01/27/12) ?M41.9 - Scoliosis, unspecified (ICD-10) Right shoulder pain ?M25.511 - Pain in right shoulder (ICD-10) Pyelonephritis ?N12 - Tubulo-interstitial nephritis, not specified as acute or chronic (ICD- 10) Positive colorectal cancer screening using DNA-based stool test ?R19.5 - Other fecal abnormalities (ICD-10) Physician Orders for Life-Sustaining Treatment (09/28/17) ?Z78.9 - Other specified health status (ICD-10) Physical deconditioning ?R53.81 - Other malaise (ICD-10) Physical debility ?R53.81 - Other malaise (ICD-10) Peripheral edema (05/12/10) ?R60.9 - Edema, unspecified (ICD-10) Osteopenia (05/26/11) ?M85.80 - Other specified disorders of bone density and structure, unspecified site (ICD-10) Nonspecific colitis ?K52.9 - Noninfective gastroenteritis and colitis, unspecified (ICD-10) Long-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 - Immunodeficiency due to drugs (ICD-10) ?T38.0X5A - Adverse effect of glucocorticoids and synthetic analogues, initial encounter (ICD-10) ?Z79.52 - long-term (current) use of systemic steroids (ICD-10) Hypokalemia ?E87.6 - Hypokalemia (ICD-10) Hypertension (08/16/12) ?I10 - Essential (primary) hypertension (ICD-10) Hyperlipidemia ?E78.5 - Hyperlipidemia, unspecified (ICD-10) High C-reactive protein ?R79.82 - Elevated C-reactive protein (CRP) (ICD-10) Health care directive on file (07/05/15) ?Z78.9 - Other specified health status (ICD-10) Gastroesophageal reflux disease (04/11/10) ?K21.9 - Gastro-esophageal reflux disease without esophagitis (ICD-10) Dilated cardiomyopathy (05/12/10) ?I42.0 - Dilated cardiomyopathy (ICD-10) Dilated bile duct ?K83.8 - Other specified diseases of biliary tract (ICD-10) Depression (08/16/12) ?F32.A - Depression, unspecified (ICD-10) Constipation ?K59.00 - Constipation, unspecified (ICD-10) Colitis ?K52.9 - Noninfective gastroenteritis and colitis, unspecified (ICD-10) Chronic pain syndrome ?G89.4 - Chronic pain syndrome (ICD-10) Chronic pain ?G89.29 - Other chronic pain (ICD-10) Cellulitis ?L03.90 - Cellulitis, unspecified (ICD-10) Atrial fibrillation with rapid ventricular response ?I48.91 - Unspecified atrial fibrillation (ICD-10) Anxiety (04/11/10) ?F41.9 - Anxiety disorder, unspecified (ICD-10) Anticoagulation goal of INR 2 to 3 ?Z51.81 - Encounter for therapeutic drug level monitoring (ICD-10) ?Z79.01 - long-term (current) use of anticoagulants (ICD-10) Anemia of chronic disease ?D63.8 - Anemia in other chronic diseases classified elsewhere (ICD-10) Abnormal liver function tests ?R79.89 - Other specified abnormal findings of blood chemistry (ICD-10) Long-term (current) use of anticoagulants, INR goal 2.0-3.0 ?Z79.01 - manager terminal (current) use of anticoagulants (ICD-10) Knee osteoarthritis ?M17.10 - Unilateral primary osteoarthritis, unspecified knee (ICD-10) POLST (Physician Orders for Life-Sustaining Treatment) ?Z78.9 - Other specified health status (ICD-10) Irritation of right ear ?H93.8X1 - Other specified disorders of right ear (ICD-10) History of pulmonary embolism (2017) ?Z86.711 - Personal history of pulmonary embolism (ICD-10) History of peptic ulcer ?Z87.11 - Personal history of peptic ulcer disease (ICD-10) History of deep vein thrombosis (DVT) of lower extremity (2017) ?Z86.718 - Personal history of other venous thrombosis and embolism (ICD-10) Head injury with loss of consciousness ?S06.9X9A - Unspecified intracranial injury with loss of consciousness of unspecified duration, initial encounter (ICD-10) Surgical History S/P foot surgery, right (08/28/14) ?Z98.890 - Other specified postprocedural states (ICD-10) 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) ?Z96.619 - Presence of unspecified artificial shoulder joint (ICD-10) Status post lumbar spinal fusion (04/11/10) ?Z98.1 - Arthrodesis status (ICD-10) Status post cervical spinal arthrodesis (09/2017) ?Z98.1 - Arthrodesis status (ICD-10) History of total hip replacement (05/12/10) ?Z96.649 - Presence of unspecified artificial hip joint (ICD-10) History of left knee replacement (05/12/10) ?Z96.652 - Presence of left artificial knee joint (ICD-10) History of hysterectomy (04/11/10) ?Z90.710 - Acquired absence of both cervix and uterus (ICD-10) History of colonoscopy (05/18/19) ?Z98.890 - Other specified postprocedural states (ICD-10) History of cholecystectomy (05/12/10) ?Z90.49 - Acquired absence of other specified parts of digestive tract (ICD- 10) Family History Brother Coronary artery disease Father Cancer Social History Narrative: Patient lives at [facility]. Code status is DNR. Healthcare power of litigation attorney associate is her daughter Giselle from [place]. She quit smoking many years ago. Has been chewing nicotine gum since then. She does not drink alcohol What is your current living situation?: I presently have a place to live Problems where you live: no known problems Problems where you live details: no known problems In the past 12 months, utilities in danger of being shut off: no In past 12 months, lack of transportation kept you from medical appts, meetings, work, or getting things needed for daily living: no In the past 12 mos, have been you worried that your food would run out before you had money to buy more?: never true In the past 12 mos, the food you bought just didn't last and you didn't have money to buy more?: never true Highest level of school completed/degree received: 12th grade, no diploma Smoking Status: Never smoker Second hand tobacco smoke exposure: No How often do you have a drink containing alcohol: never How often do you have six or more drinks on one occasion: Never AUDIT-C Alcohol total score: 0 Non-prescribed substance use: denies use Caffeine: Yes (4-5 cups daily) How often does anyone, including family, friends and others, physically hurt you : never How often does anyone, including family, friends and others, insult or talk down to you: never How often does anyone, including family, friends and others, threaten you with harm: never How often does anyone, including family, friends and others, scream or curse at you: never Little interest or pleasure in doing things: several days Feeling down, depressed, or hopeless: more than half the days service: No Course Vital Signs Vital signs: Initial Vital Signs Temperature 98.4 F 08/12/23 19:59 Temperature Source Temporal Artery Scan 08/12/23 19:59 Pulse Rate 98 08/12/23 19:59 Pulse Rhythm Regular 08/12/23 19:59 Respiratory Rate 22 08/12/23 19:59 Blood Pressure 128/76 08/12/23 19:59 Blood Pressure Mean 93 08/12/23 19:59 Blood Pressure Position Sitting 08/12/23 19:59 Pulse Oximetry 97 08/12/23 19:59 Oxygen Delivery Method Room Air 08/12/23 19:59 Vital Signs Temperature 98.4 F 08/12/23 19:59 Pulse Rate 98 08/12/23 19:59 Respiratory Rate 22 08/12/23 19:59 Blood Pressure 128/76 08/12/23 19:59 Pulse Oximetry 97 08/12/23 19:59 Oxygen Delivery Method Room Air 08/12/23 19:59 Temperature 98.4 F 08/12/23 19:59 Pulse Rate 98 08/12/23 19:59 Respiratory Rate 22 08/12/23 19:59 Blood Pressure 128/76 08/12/23 19:59 Pulse Oximetry 97 08/12/23 19:59 Oxygen Delivery Method Room Air 08/12/23 19:59 Medical Decision Making Lab Data Labs: Lab Results 08/12/23 Range/Units 19:56 Urine Color Yellow (Yellow) Urine Appearance Clear (Clear) Urine pH 6.0 (5.0-8.5) Ur Specific [place] 1.015 (1.000-1.030) Urine Protein 1+ A (Negative) Urine Glucose (UA) Negative (Negative) Urine Ketones Negative (Negative) Urine Blood 3+ A (Negative) Urine Nitrite Negative (Negative) Urine Bilirubin Negative (Negative) Urine Urobilinogen 0.2 (0.2-1.0) Ur Leukocyte Esterase 3+ A (Negative) Urine RBC 50-100 A (0-2) Urine WBC >100 A (0-5) Ur Squamous Epith Cells None (None-Few) Urine Bacteria Few A (None) Discharge Plan Discharge Clinical Impression: Acute UTI Patient Disposition: Home, Self-Care Condition: Stable Instructions: Urinary Tract Infection in Women (DC) Additional Instructions: As we discussed, please come back to the ER right away if you have worsening symptoms, especially worsening pain in her bladder, fever or chills, nausea or vomiting, or pain in your kidney or flank. Please did take your next dose of antibiotic (Macrobid) tomorrow morning. Continue on the antibiotic for 7 days. It will typically take 1-2 days per the antibiotics to help your infection get better. Prescriptions: New phenazopyridine [Pyridium] 100 mg tablet 100 mg PO TID PRN (Reason: pain) Qty: 7 0RF nitrofurantoin monohyd/m-cryst [Macrobid] 100 mg capsule 100 mg PO BID Qty: 14 0RF Rx Instructions: must administer with a meal/food No Action melatonin 3 mg capsule 3 mg PO HS PRN bupropion HCl 150 mg tablet extended release 24 hr 150 mg PO DAILY Qty: 90 3RF furosemide 40 mg tablet 40 mg PO DAILY Qty: 90 3RF losartan 25 mg tablet 25 mg PO DAILY Qty: 90 3RF metoprolol succinate 25 mg tablet extended release 24 hr 25 mg PO DAILY Qty: 90 3RF fluconazole 150 mg tablet 150 mg PO QWEEK Qty: 12 4RF Patient Comments: takes on Wednesday omeprazole 20 mg capsule,delayed release(DR/EC) 20 mg PO DAILY prednisone 10 mg tablet 10 mg PO DAILY hydrocodone-acetaminophen 5-325 mg tablet 1 tab PO QDAY 30 Days Qty: 30 0RF clobetasol 0.05 % lotion 1 applic topical BID PRN warfarin 1 mg tablet 1 mg PO QDAY Qty: 30 0RF Protocol: Dose Management Condition: Wednesday Dose/Route: 1 mg Instruction: 1 x 1 mg tablet Condition: Wednesday Dose/Route: 1.5 mg Instruction: 0.5 x 3 mg tablets Condition: Wednesday Dose/Route: 1 mg Instruction: 1 x 1 mg tablet Condition: Wednesday Dose/Route: 1.5 mg Instruction: 0.5 x 3 mg tablets Condition: Dose/Route: 1 mg Instruction: 1 x 1 mg tablet Condition: Wednesday Dose/Route: 1.5 mg Instruction: 0.5 x 3 mg tablets Condition: Wednesday Dose/Route: 1 mg Instruction: 1 x 1 mg tablet Protocol Text: Adjustment Start Date: Wednesday08/11/23 INR Value: 1.1 INR Date: 08/11/23 Recheck Date: 08/18/23 levothyroxine 25 mcg tablet 25 mcg PO DAILY magnesium oxide 400 mg magnesium tablet 400 mg PO DAILY@12 loratadine 10 mg tablet 10 mg PO DAILY estradiol 0.01 % (0.1 mg/gram) cream 0.5 g vaginal QWEEK Qty: 42.5 1RF Rx Instructions: Use nightly for two weeks, then decrease use to twice weekly for 2 weeks, then use once weekly. hydroxychloroquine 200 mg tablet 200 mg PO .Daily At 12:00PM Qty: 90 0RF gabapentin 400 mg capsule 1,200 mg PO BID Qty: 540 3RF potassium chloride 10 mEq capsule, extended release 20 meq PO BID Qty: 120 0RF warfarin 3 mg tablet 1.5 mg PO DAILY Qty: 90 0RF Protocol: Dose Management Condition: Wednesday Dose/Route: 1 mg Instruction: 1 x 1 mg tablet Condition: Wednesday Dose/Route: 1.5 mg Instruction: 0.5 x 3 mg tablets Condition: Wednesday Dose/Route: 1 mg Instruction: 1 x 1 mg tablet Condition: Wednesday Dose/Route: 1.5 mg Instruction: 0.5 x 3 mg tablets Condition: Dose/Route: 1 mg Instruction: 1 x 1 mg tablet Condition: Wednesday Dose/Route: 1.5 mg Instruction: 0.5 x 3 mg tablets Condition: Wednesday Dose/Route: 1 mg Instruction: 1 x 1 mg tablet Protocol Text: Adjustment Start Date: Wednesday08/11/23 INR Value: 1.1 INR Date: 08/11/23 Recheck Date: 08/18/23 Follow Up/Referrals: Prakash Moore MD [Primary Care Provider] - Stand Alone Forms: [facility] Info Instructions
== END 2023-08-12 21:10 | disposition home or self-care (01) ==
LOC: ED 21:01
PROVIDERS: Emergency Provider Emergency Medicine; PCP Family Medicine
DX: N39.0 Urinary tract infection, site not specified (principal)
CPT/HCPCS: 81001; 87086; 87186; 99281; 99282; 99283

== ENCOUNTER 2023-09-04 17:42 | Outpatient (CLI) | payer MEDICARE, BC, SELFPAY | END 2023-09-04 17:43 | disposition home or self-care (01) | LOC: AMB 09-09 07:44 | PROVIDERS: PCP Family Medicine; Visit Provider Student in an Organized Health Care Education/Training Program | DX: R33.9 Retention of urine, unspecified (principal) | CPT/HCPCS: A0425; A0427 ==

== ENCOUNTER 2023-09-04 18:15 | Inpatient (IN) | payer MEDICARE, BC, SELFPAY ==
[2023-09-04] VITALS (35 sets, daily range): BP systolic 95–155; BP diastolic 57–113; PULSE 86–163; RESP 18–22; TEMP 36.6–37.1; O2SAT 90–99; BMI 28.3; BMI 26.9
--- NOTE | 2023-09-04 18:29 | CT_ITS ---
Patient: DARRON HALL Facility:?[facility] Patient ID:?[id number] Site Patient ID:?[id number]. Site :?[id number] Study:?CT-Abdomen/Pelvis W/ISOVUE 370 71CC-09/04/2023 7:52:03 PM Ordering Physician:MARY Final Report: INDICATION: Diffuse abdominal pain. Known urinary tract infection. COMPARISON: 06/05/2023 TECHNIQUE: CT of the abdomen and pelvis with 71 cc of Isovue 370 intravenous contrast. Please note that all CT scans at this facility use dose modulation, iterative reconstruction, and/or weight-based dosing when appropriate to reduce radiation dose to as low as reasonably achievable. FINDINGS: ABDOMEN Liver: Normal hepatic attenuation. No suspicious focal hepatic lesion. Unchanged mild intrahepatic biliary ductal dilatation. Patent portal and hepatic veins. Gallbladder: Cholecystectomy. Normal common duct caliber. Pancreas: Normal pancreatic attenuation. No focal lesion. Normal duct caliber. No peripancreatic inflammatory changes. Spleen: Normal splenic attenuation. No suspicious focal lesion. Patent splenic artery and vein. Adrenal Glands: Symmetrical adrenal glands. No focal lesion of significance. Kidneys: Normal bilateral renal attenuation. No suspicious focal lesion. No obstructing nephrolith or dilatation of the intrarenal collecting systems. Patent renal arteries and veins. Nondilated upper urinary tracts. Gastrointestinal tract: Normal caliber, attenuation and wall thickness of the gastrointestinal tract. No inflammatory changes. Normal mesentery. Normal appendix. Vascular: Nonocclusive proximal left superficial femoral vein DVT (series 2; images 115-121). Severe aortoiliac atherosclerotic mural calcification. Abdominal aorta and its major proximal branches including the celiac, superior mesenteric, inferior mesenteric, renal, and bilateral common iliac arteries are patent. Inferior vena cava, portal and superior mesenteric veins are patent. Additional findings: No incidental adenopathy. No significant ascites, free fluid or pneumoperitoneum. PELVIS Streak artifact associated with a right hip arthroplasty limits interpretation. Catheterized bladder. The [place] catheter tents the escalera of the bladder where it abuts the bladder wall but is contained within the bladder lumen. Hysterectomy. No abnormal free fluid. No incidental adenopathy. 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 Advanced left hip osteoarthrosis with flattening of the femoral head and obliteration of the joint space. Left hip effusion. L3-L5 posterior interbody lumbar fusion and discectomy. Intervertebral disc spacing devices are present at the anterior margin of the intervertebral disc spaces at the instrumented levels. LOWER THORAX Findings consistent with round atelectasis in the left lower lobe are unchanged. Partially included lower thoracic wall, lungs, pleural spaces and mediastinum are otherwise without significant incidental findings. IMPRESSION: 1. Nonocclusive DVT of the left proximal superficial femoral vein, new in the interval since the most recent prior study of 06/05/2023. This was discussed with the provider caring for the patient, Dr. Quiroz, at 8:55 p.m. EMT P. 2. No imaging findings to explain diffuse abdominal pain. 3. In this patient with a history of a urinary tract infection, there is no evidence of obstructive uropathy. No evidence of pyelonephritis or renal abscess. The bladder is catheterized, as described above. Please note that all CT scans at this facility use dose modulation, iterative reconstruction, and/or weight-based dosing when appropriate to reduce radiation dose to as low as reasonably achievable. Dictated by Lane You MD @ 09/04/2023 8:56:15 PM Signed by:?Lane You MD @09/04/2023 8:56:15 PM (Electronic Signature)
[2023-09-04 19:07] LABS: Lactate Sepsis w/Reflex* 1.4 mmol/L (0.5-1.9)
[2023-09-04 19:08] LABS: Basophils Absolute Auto 0.09 K/uL (0.00-0.30); Basophils Percent Auto 0.8 % (0.0-3.0); Eosinophils Absolute Auto 0.14 K/uL (0.00-0.50); Eosinophils Percent Auto 1.3 % (0.0-7.0); Hematocrit 38.7 % (33.0-51.0); Hemoglobin* 11.8 gm/dL (12.0-16.0); Immature Granulocytes Abs Auto 0.02 K/uL (0.00-0.30); Immature Granulocytes Pct Auto 0.2 %; Lymphocytes Percent Auto 10.3 % (20-44); Mean Corpuscular HGB Conc 31 gm/dL (32-36); Mean Corpuscular Hemoglobin 27 pg (26-34); Mean Corpuscular Volume 89 fL (80-100); Monocytes Percent Auto 10.3 % (0.0-11.0); Neutrophils Percent Auto 77.1 % (42.0-72.0); Platelet Count* 404 K/uL (140-440); RDW Coefficient of Variation % 14.5 % (11.5-15.5); Red Blood Count 4.34 m/uL (4.00-5.20); Slide Review Reflex No; White Blood Count* 10.77 K/uL (4.50-11.00)
[2023-09-04 19:09] LABS: Appearance Urine Cloudy (Clear); Bilirubin Urine Negative (Negative); Blood Urine 2+ (Negative); Color Urine Dark yellow (Yellow); Glucose Urine Negative (Negative); Ketones Urine 3+ (Negative); Leukocyte Esterase Urine 1+ (Negative); Nitrite Urine Positive (Negative); Protein Urine 2+ (Negative); Specific Gravity Urine >= 1.030 (1.000-1.030); Urobilinogen Urine 0.2 (0.2-1.0)
[2023-09-04 19:24] LABS: Albumin* 3.7 g/dL (3.3-5.0); Chloride* 106 mmol/L (96-114); Sodium* 138 mmol/L (135-149)
[2023-09-04 19:25] LABS: Potassium* 3.6 mmol/L (3.6-5.1)
[2023-09-04 19:27] LABS: Alanine Aminotransferase* 14 U/L (4-35); Alkaline Phosphatase* 91 U/L (40-150); Anion Gap 12 mEq/L (7-15); Aspartate Amino Transferase* 30 U/L (12-35); Bilirubin Total* 0.6 mg/dL (0.1-1.5); Blood Urea Nitrogen* 18 mg/dL (7-30); Carbon Dioxide* 20 mmol/L (20-32); Creatinine* 0.7 mg/dL (0.5-1.5); Est. Creatinine Clearance* 44.98; Estimated Glomerular Filt Rate 87 ml/min; Glucose* 55 mg/dL (60-115); Total Protein* 6.6 g/dL (6.0-8.3)
[2023-09-04 19:28] LABS: Calcium* 8.9 mg/dL (8.4-10.6)
[2023-09-04 19:29] LABS: RBC Urine 0-2 (0-2); Squamous Epithelial Cell Urine Few (None-Few)
[2023-09-04 19:30] LABS: Bacteria Urine Many
--- NOTE | 2023-09-04 19:40 | CT_ITS ---
Patient: DARRON HALL Facility:?[facility] Patient ID:?[id number] Site Patient ID:?[id number]. Site :?[id number] Study:?CT-Head W/O-09/04/2023 8:52:49 PM Ordering Physician:MARY Final Report: INDICATION: Altered mental status. No other history provided. TECHNIQUE: CT of the head without contrast. Coronal and sagittal reformats. Bone and soft tissue algorithms. COMPARISON: 06/05/2023 CT FINDINGS: No acute intracranial hemorrhage or extra-axial collection. No evidence of acute cortical infarction. Encephalomalacia in the right posterior temporal lobe compatible with chronic infarct. No mass effect or midline shift. Moderate generalized cerebral/cerebellar parenchymal volume loss. Moderate regions of decreased attenuation within the periventricular and subcortical white matter of both cerebral hemispheres most likely reflects chronic microvascular ischemic disease and age related change in this patient. Vascular calcifications within the carotid siphons. Orbital contents are normal. No calvarial fractures. No lytic or sclerotic osseous lesions within the calvarium or skull base. Scalp and other imaged soft tissue structures are normal. Mastoid air cells are clear. Postoperative changes of occiput-cervical spine fusion hardware with significant associated metallic artifact. Mild mucosal thickening in the left maxillary sinus with partially visualized nasal polyp. Leftward deviation of the nasal septum. TMJ degenerative changes. IMPRESSION: 1. No evidence of acute intracranial abnormality. No significant changes compared to the prior exam. 2. Moderate generalized parenchymal volume loss and chronic microangiopathic changes. 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 Please note that all CT scans at this facility use dose modulation, iterative reconstruction, and/or weight-based dosing when appropriate to reduce radiation dose to as low as reasonably achievable. Dictated by Jean-Pierre Gu MD @ 09/04/2023 9:19:30 PM Signed by:?Jean-Pierre Gu MD @09/04/2023 9:19:30 PM (Electronic Signature)
[2023-09-04] MEDS: 0.9 % SODIUM CHLORIDE 1000 ml 1,000 ML IV (19:50)
[2023-09-04] MEDS: ACETAMINOPHEN 325 MG TABLET 650 MG PO (20:01)
--- NOTE | 2023-09-04 20:04 | ED_ITS ---
HPI - General Adult General Chief complaint: Urogenital Problems, Female <Marcelino Moreno DO - Last Filed: 09/05/23 16:23> Stated complaint: UTI <Marcelino Moreno DO - Last Filed: 09/05/23 16:23> Source: patient, family and EMS <Marcelino Moreno DO - Last Filed: 09/05/23 16:23> Mode of arrival: EMS <Marcelino Moreno DO - Last Filed: 09/05/23 16:23> Limitations: altered mental status <Marcelino Moreno DO - Last Filed: 09/05/23 16:23> History of Present Illness HPI narrative: Patient is an 78-year-old female presenting to emergency department for weakness any UTI. Two days ago she was having symptoms of a UTI and was tacked at [facility]. Was showed she had a urinary tract infection but something got lost in communication and antibiotics were never started. Today she was very weak and could not get out of her chair. Due to that her daughter called EMS because the patient could not get to the daughter's car. Normally patient is up and walking around independently. She has had UTIs in the past and had similar symptoms. Her daughter thinks she is a bit confused compared to a baseline but not as bad as she has in the past. Patient is for the most part able answer my questions appropriately but does answer slowly. Denies fevers, chills, chest pain, shortness of breath, headache, vision changes , diarrhea, constipation. No other complaints at this time. <Marcelino Moreno DO - Last Filed: 09/05/23 16:23> Related Data Home medications: Home Medications Medication Instructions Recorded Confirmed melatonin 3 mg capsule 3 mg PO HS PRN 01/13/22 09/05/23 omeprazole 20 mg capsule,delayed 20 mg PO DAILY 05/13/23 09/05/23 release prednisone 10 mg tablet 10 mg PO DAILY 05/13/23 09/05/23 levothyroxine 25 mcg tablet 25 mcg PO DAILY 06/05/23 09/05/23 loratadine 10 mg tablet 10 mg PO DAILY allergic symptoms 06/05/23 09/05/23 magnesium oxide 400 mg PO DAILY@12 06/05/23 09/05/23 clobetasol 0.05 % lotion 1 applic topical BID PRN 07/13/23 09/05/23 Previous Rx's Medication Instructions Recorded estradiol 0.01% (0.1 mg/gram) 0.5 g vaginal QWEEK #42.5 grams 01/30/22 vaginal cream bupropion HCl 150 mg 24 hr tablet, 150 mg PO DAILY #90 tabs 02/25/23 extended release fluconazole 150 mg tablet 150 mg PO QWEEK #12 tabs 02/25/23 furosemide 40 mg tablet 40 mg PO DAILY #90 tabs 02/25/23 losartan 25 mg tablet 25 mg PO DAILY #90 tabs 02/25/23 metoprolol succinate 25 mg 25 mg PO DAILY #90 tabs 02/25/23 tablet,extended release 24 hr gabapentin 400 mg capsule 1,200 mg (3 x 400 mg) PO BID #540 05/14/23 caps potassium chloride 10 mEq 20 meq (2 x 10 mEq) PO BID #120 08/02/23 capsule,extended release caps warfarin 3 mg tablet 1.5 mg PO DAILY #90 tabs 08/11/23 hydrocodone 5 mg-acetaminophen 325 1 tab PO QDAY pain 30 days #30 tabs 08/19/23 mg tablet hydroxychloroquine 200 mg tablet 200 mg PO .Daily At 12:00PM #90 08/30/23 tabs <Marcelino Moreno DO - Last Filed: 09/05/23 16:23> Allergies/adverse reactions: Allergies Allergy/AdvReac Type Severity Reaction Status Date / Time amitriptyline Allergy Severe disorientat Verified 07/27/23 15:37 ion penicillin V Allergy Severe upset Verified 07/27/23 15:37 stomach and rash perphenazine Allergy Severe disorientat Verified 07/27/23 15:37 ion adhesive Allergy Unknown Unknown Verified 07/27/23 15:37 bee venom protein (honey bee) AdvReac Severe Anaphylaxis Verified 07/27/23 15:37 latex AdvReac Severe Rash Verified 07/27/23 15:37 amoxicillin AdvReac Intermediate Diarrhea Verified 07/27/23 15:37 Tricyclic antidepressant Allergy Severe disorientat Uncoded 07/27/23 15:37 ion Bee venom Allergy Mild swells and Uncoded 07/27/23 15:37 area turns red Sulfa drugs Allergy Unknown Unknown Uncoded 07/27/23 15:37 Clavulanate AdvReac Intermediate Diarrhea Uncoded 07/27/23 15:37 <Marcelino Moreno DO - Last Filed: 09/05/23 16:23> Review of Systems Status of ROS: Reports: 10 or more systems reviewed and unremarkable except as noted in History and below <Marcelino Moreno DO - Last Filed: 09/05/23 16:23> [facility] Medical History: Medical History (Updated 09/05/23 @ 13:07 by Nick Garcia MD) Cognitive impairment ?R41.89 - Other symptoms and signs involving cognitive functions and awareness (ICD-10) Heart failure ?I50.9 - Heart failure, unspecified (ICD-10) DVT (deep venous thrombosis) ?I82.409 - Acute embolism and thrombosis of unspecified deep veins of unspecified lower extremity (ICD-10) 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, unspecified (ICD-10) Urinary tract infection ?N39.0 - Urinary tract infection, site not specified (ICD-10) Anemia due to gastrointestinal blood loss ?D50.0 - Iron deficiency anemia secondary to blood loss (chronic) (ICD-10) Anemia of chronic disease ?D63.8 - Anemia in other chronic diseases classified elsewhere (ICD-10) Atrial fibrillation with rapid ventricular response ?I48.91 - Unspecified atrial fibrillation (ICD-10) Atrial fibrillation ?I48.91 - Unspecified atrial fibrillation (ICD-10) Hypothyroidism ?E03.9 - Hypothyroidism, unspecified (ICD-10) Left leg cellulitis ?L03.116 - Cellulitis of left lower limb (ICD-10) Systemic lupus erythematosus ?M32.9 - Systemic lupus erythematosus, unspecified (ICD-10) Psoriasis ?L40.9 - Psoriasis, unspecified (ICD-10) Anemia ?D64.9 - Anemia, unspecified (ICD-10) Yeast dermatitis ?B37.2 - Candidiasis of skin and nail (ICD-10) Environmental allergies ?Z91.09 - Other allergy status, other than to drugs and biological substances (ICD-10) Osteoarthritis of left hip ?M16.12 - Unilateral primary osteoarthritis, left hip (ICD-10) Osteoarthritis of right knee ?M17.11 - Unilateral primary osteoarthritis, right knee (ICD-10) Osteoarthritis of right shoulder ?M19.011 - Primary osteoarthritis, right shoulder (ICD-10) Urethral caruncle ?N36.2 - Urethral caruncle (ICD-10) Weakness ?R53.1 - Weakness (ICD-10) Unsteady gait ?R26.81 - Unsteadiness on feet (ICD-10) Tubular adenoma ?D36.9 - Benign neoplasm, unspecified site (ICD-10) Spinal stenosis ?M48.00 - Spinal stenosis, site unspecified (ICD-10) 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 (ICD-10) Seasonal allergic rhinitis (01/27/12) ?J30.2 - Other seasonal allergic rhinitis (ICD-10) Scoliosis (01/27/12) ?M41.9 - Scoliosis, unspecified (ICD-10) Right shoulder pain ?M25.511 - Pain in right shoulder (ICD-10) Pyelonephritis ?N12 - Tubulo-interstitial nephritis, not specified as acute or chronic (ICD- 10) Positive colorectal cancer screening using DNA-based stool test ?R19.5 - Other fecal abnormalities (ICD-10) Physician Orders for Life-Sustaining Treatment (09/28/17) ?Z78.9 - Other specified health status (ICD-10) Physical deconditioning ?R53.81 - Other malaise (ICD-10) Physical debility ?R53.81 - Other malaise (ICD-10) Peripheral edema (05/12/10) ?R60.9 - Edema, unspecified (ICD-10) Osteopenia (05/26/11) ?M85.80 - Other specified disorders of bone density and structure, unspecified site (ICD-10) Nonspecific colitis ?K52.9 - Noninfective gastroenteritis and colitis, unspecified (ICD-10) Long-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 - Immunodeficiency due to drugs (ICD-10) ?T38.0X5A - Adverse effect of glucocorticoids and synthetic analogues, initial encounter (ICD-10) ?Z79.52 - group home (current) use of systemic steroids (ICD-10) Hypokalemia ?E87.6 - Hypokalemia (ICD-10) Hypertension (08/16/12) ?I10 - Essential (primary) hypertension (ICD-10) Hyperlipidemia ?E78.5 - Hyperlipidemia, unspecified (ICD-10) High C-reactive protein ?R79.82 - Elevated C-reactive protein (CRP) (ICD-10) Health care directive on file (07/05/15) ?Z78.9 - Other specified health status (ICD-10) Gastroesophageal reflux disease (04/11/10) ?K21.9 - Gastro-esophageal reflux disease without esophagitis (ICD-10) Dilated cardiomyopathy (05/12/10) ?I42.0 - Dilated cardiomyopathy (ICD-10) Dilated bile duct ?K83.8 - Other specified diseases of biliary tract (ICD-10) Depression (08/16/12) ?F32.A - Depression, unspecified (ICD-10) Constipation ?K59.00 - Constipation, unspecified (ICD-10) Colitis ?K52.9 - Noninfective gastroenteritis and colitis, unspecified (ICD-10) Chronic pain syndrome ?G89.4 - Chronic pain syndrome (ICD-10) Chronic pain ?G89.29 - Other chronic pain (ICD-10) Cellulitis ?L03.90 - Cellulitis, unspecified (ICD-10) Anxiety (04/11/10) ?F41.9 - Anxiety disorder, unspecified (ICD-10) Anticoagulation goal of INR 2 to 3 ?Z51.81 - Encounter for therapeutic drug level monitoring (ICD-10) ?Z79.01 - group home (current) use of anticoagulants (ICD-10) Abnormal liver function tests ?R79.89 - Other specified abnormal findings of blood chemistry (ICD-10) Long-term (current) use of anticoagulants, INR goal 2.0-3.0 ?Z79.01 - intermission coordinator (current) use of anticoagulants (ICD-10) Knee osteoarthritis ?M17.10 - Unilateral primary osteoarthritis, unspecified knee (ICD-10) POLST (Physician Orders for Life-Sustaining Treatment) ?Z78.9 - Other specified health status (ICD-10) Irritation of right ear ?H93.8X1 - Other specified disorders of right ear (ICD-10) History of pulmonary embolism (2016) ?Z86.711 - Personal history of pulmonary embolism (ICD-10) History of peptic ulcer ?Z87.11 - Personal history of peptic ulcer disease (ICD-10) History of deep vein thrombosis (DVT) of lower extremity (2017) ?Z86.718 - Personal history of other venous thrombosis and embolism (ICD-10) Head injury with loss of consciousness ?S06.9X9A - Unspecified intracranial injury with loss of consciousness of unspecified duration, initial encounter (ICD-10) <Marcelino Moreno DO - Last Filed: 09/05/23 16:23> Surgical History: Surgical History S/P foot surgery, right (08/28/14) ?Z98.890 - Other specified postprocedural states (ICD-10) 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) ?Z96.619 - Presence of unspecified artificial shoulder joint (ICD-10) Status post lumbar spinal fusion (04/11/10) ?Z98.1 - Arthrodesis status (ICD-10) Status post cervical spinal arthrodesis (09/2017) ?Z98.1 - Arthrodesis status (ICD-10) History of total hip replacement (05/12/10) ?Z96.649 - Presence of unspecified artificial hip joint (ICD-10) History of left knee replacement (05/12/10) ?Z96.652 - Presence of left artificial knee joint (ICD-10) History of hysterectomy (04/11/10) ?Z90.710 - Acquired absence of both cervix and uterus (ICD-10) History of colonoscopy (05/18/19) ?Z98.890 - Other specified postprocedural states (ICD-10) History of cholecystectomy (05/12/10) ?Z90.49 - Acquired absence of other specified parts of digestive tract (ICD- 10) <Marcelino Moreno DO - Last Filed: 09/05/23 16:23> Family History: Family History Brother Coronary artery disease Father Cancer <Marcelino Moreno DO - Last Filed: 09/05/23 16:23> Social History: Social History (Updated 09/04/23 @ 22:56 by Liliana Talavera MD) Narrative: Patient lives at [facility], independent living at [facility]. She is . 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 Her daughter, Giselle, lives in the area. Code status is DNR/DNI. Healthcare power of construction project engineer is her daughter Giselle from [place]. She quit smoking in 1996. Has been chewing nicotine gum since then. She says she chews pieces constantly throughout the day and is never without a piece in her mouth. She does not drink alcohol. What is your current living situation?: I presently have a place to live Problems where you live: no known problems Problems where you live details: no known problems In the past 12 months, utilities in danger of being shut off: no In past 12 months, lack of transportation kept you from medical appts, meetings, work, or getting things needed for daily living: no In the past 12 mos, have been you worried that your food would run out before you had money to buy more?: never true In the past 12 mos, the food you bought just didn't last and you didn't have money to buy more?: never true Highest level of school completed/degree received: 12th grade, no diploma Smoking Status: Never smoker Second hand tobacco smoke exposure: No How often do you have a drink containing alcohol: never How often do you have six or more drinks on one occasion: Never AUDIT-C Alcohol total score: 0 Non-prescribed substance use: denies use Caffeine: Yes (4-5 cups daily) How often does anyone, including family, friends and others, physically hurt you : never How often does anyone, including family, friends and others, insult or talk down to you: never How often does anyone, including family, friends and others, threaten you with harm: never How often does anyone, including family, friends and others, scream or curse at you: never Little interest or pleasure in doing things: several days Feeling down, depressed, or hopeless: more than half the days service: No <Marcelino Moreno DO - Last Filed: 09/05/23 16:23> Exam Narrative: Exam Narrative: Const: Well-nourished, Well-developed, in mild distress Eyes: PERRL, no conjunctival injection, and symmetrical lids HENT: Atraumatic external nose and ears. Moist mucous membranes. Neck: Symmetric, trachea midline, No thyromegaly. CVS: Tachycardic, No murmurs or gallops. Peripheral pulses 2+ and equal in all extremities RESP: Unlabored respiratory effort. Clear to auscultation bilaterally. GI: Diffuse abdominal tenderness, Nondistended, No rebound or guarding. MSK:Extremities w/o deformity, Normal Active ROM Skin: Warm, Dry. No rashes or lesions. Neuro: Normal Muscle tone, No focal neurological deficits. Psych: Awake, Alert, & Oriented x3. Appropriate mood and affect. <Marcelino Moreno, DO - Last Filed: 09/05/23 16:23> Const: Vital Signs, click to edit/add: Vital Signs - 24 hr 09/04/23 18:17 09/04/23 19:13 09/04/23 19:15 Temperature 98.6 F Pulse Rate 111 H 110 H Pulse Rate [Right Pulse Oximeter] 105 H Respiratory Rate 22 Blood Pressure Blood Pressure [Ri ght Upper Arm] 147/89 H Pulse Oximetry 98 95 99 Oxygen Delivery Me thod Room Air 09/04/23 19:30 09/04/23 19:32 09/04/23 20:02 Temperature Pulse Rate 135 H 139 H Pulse Rate [Right Pulse Oximeter] Respiratory Rate 18 Blood Pressure 155/82 H 155/79 H Blood Pressure [Ri ght Upper Arm] Pulse Oximetry 98 97 Oxygen Delivery Me thod Room Air Room Air 09/04/23 20:08 09/04/23 20:09 09/04/23 20:15 Temperature Pulse Rate 163 H 150 H 128 H Pulse Rate [Right Pulse Oximeter] Respiratory Rate Blood Pressure 136/83 121/102 H Blood Pressure [Ri ght Upper Arm] Pulse Oximetry 97 96 94 Oxygen Delivery Me thod Room Air Room Air 09/04/23 20:16 09/04/23 20:17 09/04/23 20:22 Temperature Pulse Rate 121 H 115 H Pulse Rate [Right Pulse Oximeter] Respiratory Rate Blood Pressure 128/113 H 126/81 Blood Pressure [Ri ght Upper Arm] Pulse Oximetry 95 95 Oxygen Delivery Me thod Room Air Room Air 09/04/23 20:27 09/04/23 20:31 09/04/23 20:34 Temperature Pulse Rate 136 H 135 H 129 H Pulse Rate [Right Pulse Oximeter] Respiratory Rate Blood Pressure 101/90 H Blood Pressure [Ri ght Upper Arm] Pulse Oximetry 90 94 94 Oxygen Delivery Me thod Room Air 09/04/23 20:37 09/04/23 20:49 09/04/23 20:50 Temperature Pulse Rate 129 H 133 H 133 H Pulse Rate [Right Pulse Oximeter] Respiratory Rate Blood Pressure 128/74 123/89 Blood Pressure [Ri ght Upper Arm] Pulse Oximetry 95 90 92 Oxygen Delivery Me thod Room Air Room Air 09/04/23 20:52 09/04/23 20:57 09/04/23 21:00 Temperature Pulse Rate 145 H 138 H 125 H Pulse Rate [Right Pulse Oximeter] Respiratory Rate Blood Pressure 110/76 124/86 Blood Pressure [Ri ght Upper Arm] Pulse Oximetry 94 92 94 Oxygen Delivery Me thod Room Air Room Air 09/04/23 21:02 09/04/23 21:07 09/04/23 21:11 Temperature 98.7 F Pulse Rate 137 H 130 H Pulse Rate [Right Pulse Oximeter] Respiratory Rate Blood Pressure 106/92 H 103/73 Blood Pressure [Ri ght Upper Arm] Pulse Oximetry 92 93 Oxygen Delivery Fl thod Room Air Room Air 09/04/23 21:12 09/04/23 21:15 09/04/23 21:17 Temperature Pulse Rate 126 H 127 H 119 H Pulse Rate [Right Pulse Oximeter] Respiratory Rate Blood Pressure 95/78 102/65 Blood Pressure [Ri ght Upper Arm] Pulse Oximetry 94 91 90 Oxygen Delivery Fl thod Room Air Room Air Room Air 09/04/23 21:22 09/04/23 21:27 Temperature Pulse Rate 123 H 123 H Pulse Rate [Right Pulse Oximeter] Respiratory Rate Blood Pressure 106/66 103/72 Blood Pressure [Ri ght Upper Arm] Pulse Oximetry 90 92 Oxygen Delivery Me thod Room Air Room Air <Marcelino Moreno, DO - Last Filed: 09/05/23 16:23> Vital Signs, click to edit/add: Vital Signs - 24 hr 09/04/23 18:17 09/04/23 19:13 09/04/23 19:15 Temperature 98.6 F Pulse Rate 111 H 110 H Pulse Rate [Right Pulse Oximeter] 105 H Respiratory Rate 22 Blood Pressure Blood Pressure [Ri ght Upper Arm] 147/89 H Pulse Oximetry 98 95 99 Oxygen Delivery Me thod Room Air 09/04/23 19:30 09/04/23 19:32 09/04/23 20:02 Temperature Pulse Rate 135 H 139 H Pulse Rate [Right Pulse Oximeter] Respiratory Rate 18 Blood Pressure 155/82 H 155/79 H Blood Pressure [Ri ght Upper Arm] Pulse Oximetry 98 97 Oxygen Delivery Me thod Room Air Room Air 09/04/23 20:08 09/04/23 20:09 09/04/23 20:15 Temperature Pulse Rate 163 H 150 H 128 H Pulse Rate [Right Pulse Oximeter] Respiratory Rate Blood Pressure 136/83 121/102 H Blood Pressure [Ri ght Upper Arm] Pulse Oximetry 97 96 94 Oxygen Delivery Me thod Room Air Room Air 09/04/23 20:16 09/04/23 20:17 09/04/23 20:22 Temperature Pulse Rate 121 H 115 H Pulse Rate [Right Pulse Oximeter] Respiratory Rate Blood Pressure 128/113 H 126/81 Blood Pressure [Ri ght Upper Arm] Pulse Oximetry 95 95 Oxygen Delivery Me od Room Air Room Air 09/04/23 20:27 09/04/23 20:31 09/04/23 20:34 Temperature Pulse Rate 136 H 135 H 129 H Pulse Rate [Right Pulse Oximeter] Respiratory Rate Blood Pressure 101/90 H Blood Pressure [Ri ght Upper Arm] Pulse Oximetry 90 94 94 Oxygen Delivery Me thod Room Air 09/04/23 20:37 09/04/23 20:49 09/04/23 20:50 Temperature Pulse Rate 129 H 133 H 133 H Pulse Rate [Right Pulse Oximeter] Respiratory Rate Blood Pressure 128/74 123/89 Blood Pressure [Ri ght Upper Arm] Pulse Oximetry 95 90 92 Oxygen Delivery Me od Room Air Room Air 09/04/23 20:52 09/04/23 20:57 09/04/23 21:00 Temperature Pulse Rate 145 H 138 H 125 H Pulse Rate [Right Pulse Oximeter] Respiratory Rate Blood Pressure 110/76 124/86 Blood Pressure [Ri ght Upper Arm] Pulse Oximetry 94 92 94 Oxygen Delivery Me thod Room Air Room Air 09/04/23 21:02 09/04/23 21:07 09/04/23 21:11 Temperature 98.7 F Pulse Rate 137 H 130 H Pulse Rate [Right Pulse Oximeter] Respiratory Rate Blood Pressure 106/92 H 103/73 Blood Pressure [Ri ght Upper Arm] Pulse Oximetry 92 93 Oxygen Delivery Me thod Room Air Room Air 09/04/23 21:12 09/04/23 21:15 09/04/23 21:17 Temperature Pulse Rate 126 H 127 H 119 H Pulse Rate [Right Pulse Oximeter] Respiratory Rate Blood Pressure 95/78 102/65 Blood Pressure [Ri ght Upper Arm] Pulse Oximetry 94 91 90 Oxygen Delivery Me thod Room Air Room Air Room Air 09/04/23 21:22 09/04/23 21:27 Temperature Pulse Rate 123 H 123 H Pulse Rate [Right Pulse Oximeter] Respiratory Rate Blood Pressure 106/66 103/72 Blood Pressure [Ri ght Upper Arm] Pulse Oximetry 90 92 Oxygen Delivery Me thod Room Air Room Air <Betsey Quiroz MD - Last Filed: 09/04/23 21:30> Course Consultations Consultation #1: reviewed with Dr. Talavera the hospitalist. We have reviewed that her heart rate is in the 120s, does look like it is probably atrial fibrillation on the monitor. Her EKGs reportedly were quite regular and looked to be sinus tachycardia per report of Dr. Moreno whom initially took care of this patient. Her INR subtherapeutic at 1.9. Will order dose of Lovenox at this time. She will be down to see the patient, assess where she wants her to go in the hospital. <Betsey Quiroz MD - Last Filed: 09/04/23 21:30> Time: 21:29 <Betsey Quiroz MD - Last Filed: 09/04/23 21:30> Vital Signs Vital signs: Initial Vital Signs Temperature 98.6 F 09/04/23 18:17 Temperature Source Temporal Artery Scan 09/04/23 18:17 Pulse Rate 105 H 09/04/23 18:17 Respiratory Rate 09/04/23 18:17 Blood Pressure 147/89 H 09/04/23 18:17 Blood Pressure Mean 108 H 09/04/23 18:17 Blood Pressure Position Sitting 09/04/23 18:17 Pulse Oximetry 98 09/04/23 18:17 Oxygen Delivery Method Room Air 09/04/23 18:17 Vital Signs Temperature 98.6 F 09/04/23 18:17 Pulse Rate 105 H 09/04/23 18:17 Respiratory Rate 09/04/23 18:17 Blood Pressure 147/89 H 09/04/23 18:17 Pulse Oximetry 98 09/04/23 18:17 Oxygen Delivery Method Room Air 09/04/23 18:17 Temperature 98.8 F 09/05/23 15:00 Pulse Rate 73 09/05/23 15:00 Respiratory Rate 18 09/05/23 15:00 Blood Pressure 148/64 H 09/05/23 15:00 Pulse Oximetry 96 09/05/23 15:00 Oxygen Delivery Method Room Air 09/05/23 15:00 <Marcelino Moreno DO - Last Filed: 09/05/23 16:23> Initial Vital Signs Temperature 98.6 F 09/04/23 18:17 Temperature Source Temporal Artery Scan 09/04/23 18:17 Pulse Rate 105 H 09/04/23 18:17 Respiratory Rate 22 09/04/23 18:17 Blood Pressure 147/89 H 09/04/23 18:17 Blood Pressure Mean 108 H 09/04/23 18:17 Blood Pressure Position Sitting 09/04/23 18:17 Pulse Oximetry 98 09/04/23 18:17 Oxygen Delivery Method Room Air 09/04/23 18:17 Vital Signs Temperature 98.6 F 09/04/23 18:17 Pulse Rate 105 H 09/04/23 18:17 Respiratory Rate 22 09/04/23 18:17 Blood Pressure 147/89 H 09/04/23 18:17 Pulse Oximetry 98 09/04/23 18:17 Oxygen Delivery Method Room Air 09/04/23 18:17 Temperature 98.8 F 09/05/23 15:00 Pulse Rate 73 09/05/23 15:00 Respiratory Rate 18 09/05/23 15:00 Blood Pressure 148/64 H 09/05/23 15:00 Pulse Oximetry 96 09/05/23 15:00 Oxygen Delivery Method Room Air 09/05/23 15:00 <Betsey Quiroz MD - Last Filed: 09/04/23 21:30> Medications Administered Medications: Generic Name Dose Route Start Last Admin Trade Name Freq PRN Reason Stop Dose Admin Acetaminophen 650 - 975 mg 09/04/23 23:04 09/05/23 06:20 Acetaminophen 325 Mg Tablet PO 650 mg Q6H PRN Administration fever or pain Hydrocodone Bitart/Acetaminophen 1 tab 09/04/23 23:12 09/05/23 05:55 Hydrocodone-Acetamin 5-325 Mg 1 Tab PO 1 tab Q6H PRN Administration Pain Enoxaparin Sodium 60 mg 09/05/23 09:00 09/05/23 09:51 Enoxaparin 60 Mg/0.6 Ml Inj SUBCUT 60 mg Q12H LUIS Administration Gabapentin 1,200 mg 09/05/23 09:00 09/05/23 09:52 Gabapentin 600 Mg Tablet PO 1,200 mg BID LUIS Administration Hydroxychloroquine Sulfate 200 mg 09/05/23 14:30 09/05/23 14:37 Hydroxychloroquine 200 Mg Tablet PO 200 mg DAILY@1200 LUIS Administration Dextrose/Lactated Ringer's 1,000 mls @ 75 mls/hr 09/05/23 12:43 09/05/23 13:02 5 % Dextrose In Lac Ringer's IV Not Given .[id number] LUIS Metoprolol Succinate 25 mg 09/05/23 09:00 09/05/23 09:51 Metoprolol Succinate (Xl) 25 Mg Tab PO 25 mg DAILY LUIS Administration Potassium Chloride 20 meq 09/05/23 09:00 09/05/23 09:52 Potassium Chloride 10 Meq Capsule Er PO 20 meq BID LUIS Administration Sodium Chloride 5 ml 09/05/23 09:00 09/05/23 09:31 Sodium Chloride 0.9 % (Flush) 10 Ml Syringe IVF Not Given BID LUIS Discontinued Medications Generic Name Dose Route Start Last Admin Trade Name Freq PRN Reason Stop Dose Admin Acetaminophen 650 mg 09/04/23 19:27 09/04/23 20:01 Acetaminophen 325 Mg Tablet PO 09/04/23 19:28 650 mg ONCE ONE Administration Hydrocodone Bitart/Acetaminophen 1 tab 09/04/23 20:57 09/04/23 21:03 Hydrocodone-Acetamin 5-325 Mg 1 Tab PO 09/04/23 20:58 1 tab ONCE ONE Administration Dextrose 25 gm 09/05/23 07:23 09/05/23 07:33 Dextrose 50 % Syringe IVP 09/05/23 07:24 25 gm ONCE ONE Administration Enoxaparin Sodium 60 mg 09/04/23 21:25 09/04/23 22:52 Enoxaparin 60 Mg/0.6 Ml Inj SUBCUT 09/04/23 21:26 60 mg ONCE ONE Administration Hydrocortisone Sodium Succinate 100 mg 09/05/23 07:21 09/05/23 07:33 Hydrocortisone Sod Succinate 50 Mg/Ml Inj IVP 09/05/23 07:22 100 mg ONCE ONE Administration Lactated Ringer's 1,000 mls @ 1,000 mls/hr 09/04/23 19:27 09/04/23 20:18 Lactated Ringers 1000 Ml IV 09/04/23 20:26 Not Given .Q1H ONE Sodium Chloride 1,000 mls @ 1,000 mls/hr 09/04/23 20:03 09/04/23 20:50 0.9 % Sodium Chloride 1000 Ml IV 09/04/23 21:02 Infused .Q1H LUIS Infusion Ceftriaxone Sodium 1 gm/ 100 mls @ 200 mls/hr 09/04/23 20:07 09/04/23 20:38 Sodium Chloride IVPB 09/04/23 20:08 200 mls/hr ONCE ONE Administration Sodium Chloride 1,000 mls @ 500 mls/hr 09/04/23 22:28 09/05/23 02:28 0.9 % Sodium Chloride 1000 Ml IV 09/05/23 00:27 Infused .Q2H LUIS Infusion Dextrose/Lactated Ringer's 1,000 mls @ 125 mls/hr 09/05/23 08:01 09/05/23 08:13 5 % Dextrose In Lac Ringer's IV 125 mls/hr .Q8H LUIS Administration Metoprolol Tartrate 25 mg 09/04/23 20:09 09/04/23 20:17 Metoprolol Tartrate 25 Mg Tablet PO 09/04/23 20:10 25 mg ONCE ONE Administration Metoprolol Tartrate 2.5 mg 09/04/23 20:09 09/04/23 20:14 Metoprolol Tartrate 1 Mg/Ml Inj IVP 09/04/23 20:10 2.5 mg ONCE ONE Administration Prednisone 10 mg 09/05/23 00:07 09/05/23 00:37 Prednisone 10 Mg Tablet PO 09/05/23 00:08 10 mg ONCE ONE Administration Warfarin Sodium 1 mg 09/04/23 23:15 09/05/23 00:37 Warfarin 2 Mg Tablet PO 09/04/23 23:16 1 mg ONCE ONE Administration <Marcelino Moreno, DO - Last Filed: 09/05/23 16:23> Generic Name Dose Route Start Last Admin Trade Name Freq PRN Reason Stop Dose Admin Acetaminophen 650 - 975 mg 09/04/23 23:04 09/05/23 06:20 Acetaminophen 325 Mg Tablet PO 650 mg Q6H PRN Administration fever or pain Hydrocodone Bitart/Acetaminophen 1 tab 09/04/23 23:12 09/05/23 05:55 Hydrocodone-Acetamin 5-325 Mg 1 Tab PO 1 tab Q6H PRN Administration Pain Enoxaparin Sodium 60 mg 09/05/23 09:00 09/05/23 09:51 Enoxaparin 60 Mg/0.6 Ml Inj SUBCUT 60 mg Q12H LUIS Administration Gabapentin 1,200 mg 09/05/23 09:00 09/05/23 09:52 Gabapentin 600 Mg Tablet PO 1,200 mg BID LUIS Administration Hydroxychloroquine Sulfate 200 mg 09/05/23 14:30 09/05/23 14:37 Hydroxychloroquine 200 Mg Tablet PO 200 mg DAILY@1200 LUIS Administration Dextrose/Lactated Ringer's 1,000 mls @ 75 mls/hr 09/05/23 12:43 09/05/23 13:02 5 % Dextrose In Lac Ringer's IV Not Given .[id number] LUIS Metoprolol Succinate 25 mg 09/05/23 09:00 09/05/23 09:51 Metoprolol Succinate (Xl) 25 Mg Tab PO 25 mg DAILY LUIS Administration Potassium Chloride 20 meq 09/05/23 09:00 09/05/23 09:52 Potassium Chloride 10 Meq Capsule Er PO 20 meq BID LUIS Administration Sodium Chloride 5 ml 09/05/23 09:00 09/05/23 09:31 Sodium Chloride 0.9 % (Flush) 10 Ml Syringe IVF Not Given BID LUIS Discontinued Medications Generic Name Dose Route Start Last Admin Trade Name Prem PRN Reason Stop Dose Admin Acetaminophen 650 mg 09/04/23 19:27 09/04/23 20:01 Acetaminophen 325 Mg Tablet PO 09/04/23 19:28 650 mg ONCE ONE Administration Hydrocodone Bitart/Acetaminophen 1 tab 09/04/23 20:57 09/04/23 21:03 Hydrocodone-Acetamin 5-325 Mg 1 Tab PO 09/04/23 20:58 1 tab ONCE ONE Administration Dextrose 25 gm 09/05/23 07:23 09/05/23 07:33 Dextrose 50 % Syringe IVP 09/05/23 07:24 25 gm ONCE ONE Administration Enoxaparin Sodium 60 mg 09/04/23 21:25 09/04/23 22:52 Enoxaparin 60 Mg/0.6 Ml Inj SUBCUT 09/04/23 21:26 60 mg ONCE ONE Administration Hydrocortisone Sodium Succinate 100 mg 09/05/23 07:21 09/05/23 07:33 Hydrocortisone Sod Succinate 50 Mg/Ml Inj IVP 09/05/23 07:22 100 mg ONCE ONE Administration Lactated Ringer's 1,000 mls @ 1,000 mls/hr 09/04/23 19:27 09/04/23 20:18 Lactated Ringers 1000 Ml IV 09/04/23 20:26 Not Given .Q1H ONE Sodium Chloride 1,000 mls @ 1,000 mls/hr 09/04/23 20:03 09/04/23 20:50 0.9 % Sodium Chloride 1000 Ml IV 09/04/23 21:02 Infused .Q1H LUIS Infusion Ceftriaxone Sodium 1 gm/ 100 mls @ 200 mls/hr 09/04/23 20:07 09/04/23 20:38 Sodium Chloride IVPB 09/04/23 20:08 200 mls/hr ONCE ONE Administration Sodium Chloride 1,000 mls @ 500 mls/hr 09/04/23 22:28 09/05/23 02:28 0.9 % Sodium Chloride 1000 Ml IV 09/05/23 00:27 Infused .Q2H LUIS Infusion Dextrose/Lactated Ringer's 1,000 mls @ 125 mls/hr 09/05/23 08:01 09/05/23 08:13 5 % Dextrose In Lac Ringer's IV 125 mls/hr .Q8H LUIS Administration Metoprolol Tartrate 25 mg 09/04/23 20:09 09/04/23 20:17 Metoprolol Tartrate 25 Mg Tablet PO 09/04/23 20:10 25 mg ONCE ONE Administration Metoprolol Tartrate 2.5 mg 09/04/23 20:09 09/04/23 20:14 Metoprolol Tartrate 1 Mg/Ml Inj IVP 09/04/23 20:10 2.5 mg ONCE ONE Administration Prednisone 10 mg 09/05/23 00:07 09/05/23 00:37 Prednisone 10 Mg Tablet PO 09/05/23 00:08 10 mg ONCE ONE Administration Warfarin Sodium 1 mg 09/04/23 23:15 09/05/23 00:37 Warfarin 2 Mg Tablet PO 09/04/23 23:16 1 mg ONCE ONE Administration <Betsey Quiroz MD - Last Filed: 09/04/23 21:30> Medical Decision Making MDM Narrative Medical decision making narrative: Patient is an 78-year-old female presenting to the emergency department for weakness likely secondary to UTI. She is tachycardic at this time so I will order EKG, troponin. Will also order septic workup with blood cultures and lactate. Her daughter thinks she is slightly confused so CT scan of the brain was ordered. She is tender throughout her abdomen so will order CT scan of the abdomen with contrast to look for any intra-abdominal abnormalities. Repeat urinalysis ordered. Patient will be given a L of normal saline. Lab work returned with a white count of 10.77. She does though meet sepsis criteria with her tachycardia and tachypnea. EKG shows sinus tachycardia but no obvious ST elevations. We are having difficulty getting a clear EKG without artifact. Initial troponin came back at 0.10 and this will be repeated to trend. Previous troponins have all been elevated. Urinalysis shows clearly a UTI. She will be starting Rocephin. She does have allergy to amoxicillin penicillin but the relatively mild and is likely low cross-reactivity with Rocephin at this time. Patient became more tachycardic into the 130s before she got her fluids. After the fluids she did come down to 120 within went up to 150s. She is not taking her medications for several days she states due to the increasing weakness. This could be what is causing her tachycardia as her blood pressure is otherwise well and is not showing any obvious signs of dehydration. Will give her dose of metoprolol 25 mg p.o. and Lopressor 2.5 IV. Patient will be signed out to my colleague pending image results. <Marcelino Moreno DO - Last Filed: 09/05/23 16:23> Lab Data Lab results reviewed: Yes I reviewed the patient's lab results <Betsey Quiroz MD - Last Filed: 09/04/23 21:30> Labs: Lab Results 09/04/23 09/04/23 09/04/23 Range/Units 19:00 19:00 20:32 WBC 10.77 (4.50-11.00) K/uL RBC 4.34 (4.00-5.20) m/uL Hgb 11.8 L (12.0-16.0) gm/dL Hct 38.7 (33.0-51.0) % MCV 89 (80-100) fL MCH 27 (26-34) pg MCHC 31 L (32-36) gm/dL RDW Coeff of Rolo 14.5 (11.5-15.5) % Plt Count 404 (140-440) K/uL Neut % (Auto) 77.1 H (42.0-72.0) % Lymph % (Auto) 10.3 L (20-44) % Hettinger % (Auto) 10.3 (0.0-11.0) % Eos % (Auto) 1.3 (0.0-7.0) % Baso % (Auto) 0.8 (0.0-3.0) % Neut # (Auto) 8.30 H (1.7-7.0) K/uL Lymph # (Auto) 1.10 (0.90-2.90) K/uL Hettinger # (Auto) 1.10 H (0.00-0.90) K/UL Eos # (Auto) 0.14 (0.00-0.50) K/uL Baso # (Auto) 0.09 (0.00-0.30) K/uL Abs Immat Gran (auto) 0.02 (0.00-0.30) K/uL Imm/Tot Granulo (auto) 0.2 % INR 1.90 H (0.91-1.10) Sodium 138 (135-149) mmol/L Potassium 3.6 (3.6-5.1) mmol/L Chloride 106 (96-114) mmol/L Carbon Dioxide 20 (20-32) mmol/L Anion Gap 12 (7-15) mEq/L BUN 18 (7-30) mg/dL Creatinine 0.7 (0.5-1.5) mg/dL Estimated Creat Clear 44.98 Estimated GFR 87 ml/min Glucose 55 L (60-115) mg/dL Lactate 1.4 (0.5-1.9) mmol/L Calcium 8.9 (8.4-10.6) mg/dL Total Bilirubin 0.6 (0.1-1.5) mg/dL AST 30 (12-35) U/L ALT 14 (4-35) U/L Alkaline Phosphatase 91 (40-150) U/L Total Creatine Kinase 61 (41-117) U/L Troponin I 0.10 H* 0.11 H* (0.01-0.04) ng/mL Total Protein 6.6 (6.0-8.3) g/dL Albumin 3.7 (3.3-5.0) g/dL Procalcitonin 0.15 (<0.50) ng/mL Urine Color Dark yellow (Yellow) Urine Appearance Cloudy A (Clear) Urine pH 6.0 (5.0-8.5) Ur Specific [place] >= 1.030 (1.000-1.030) Urine Protein 2+ A (Negative) Urine Glucose (UA) Negative (Negative) Urine Ketones 3+ A (Negative) Urine Blood 2+ A (Negative) Urine Nitrite Positive A (Negative) Urine Bilirubin Negative (Negative) Urine Urobilinogen 0.2 (0.2-1.0) Ur Leukocyte Esterase 1+ A (Negative) Urine RBC 0-2 (0-2) Urine WBC 10-25 A (0-5) Ur Squamous Epith Cells Few (None-Few) Urine Bacteria Many A (None) Lab Acknowledgement Test Added Test Added 09/04/23 Range/Units 20:56 WBC (4.50-11.00) K/uL RBC (4.00-5.20) m/uL Hgb (12.0-16.0) gm/dL Hct (33.0-51.0) % MCV (80-100) fL MCH (26-34) pg MCHC (32-36) gm/dL RDW Coeff of Rolo (11.5-15.5) % Plt Count (140-440) K/uL Neut % (Auto) (42.0-72.0) % Lymph % (Auto) (20-44) % Hettinger % (Auto) (0.0-11.0) % Eos % (Auto) (0.0-7.0) % Baso % (Auto) (0.0-3.0) % Neut # (Auto) (1.7-7.0) K/uL Lymph # (Auto) (0.90-2.90) K/uL Hettinger # (Auto) (0.00-0.90) K/UL Eos # (Auto) (0.00-0.50) K/uL Baso # (Auto) (0.00-0.30) K/uL Abs Immat Gran (auto) (0.00-0.30) K/uL Imm/Tot Granulo (auto) % INR (0.91-1.10) Sodium (135-149) mmol/L Potassium (3.6-5.1) mmol/L Chloride (96-114) mmol/L Carbon Dioxide (20-32) mmol/L Anion Gap (7-15) mEq/L BUN (7-30) mg/dL Creatinine (0.5-1.5) mg/dL Estimated Creat Clear Estimated GFR ml/min Glucose (60-115) mg/dL Lactate (0.5-1.9) mmol/L Calcium (8.4-10.6) mg/dL Total Bilirubin (0.1-1.5) mg/dL AST (12-35) U/L ALT (4-35) U/L Alkaline Phosphatase (40-150) U/L Total Creatine Kinase (41-117) U/L Troponin I (0.01-0.04) ng/mL Total Protein (6.0-8.3) g/dL Albumin (3.3-5.0) g/dL Procalcitonin (<0.50) ng/mL Urine Color (Yellow) Urine Appearance (Clear) Urine pH (5.0-8.5) Ur Specific [place] (1.000-1.030) Urine Protein (Negative) Urine Glucose (UA) (Negative) Urine Ketones (Negative) Urine Blood (Negative) Urine Nitrite (Negative) Urine Bilirubin (Negative) Urine Urobilinogen (0.2-1.0) Ur Leukocyte Esterase (Negative) Urine RBC (0-2) Urine WBC (0-5) Ur Squamous Epith Cells (None-Few) Urine Bacteria (None) Lab Acknowledgement Test Added <Marcelino Moreno, DO - Last Filed: 09/05/23 16:23> Lab Results 09/04/23 09/04/23 09/04/23 Range/Units 19:00 19:00 20:32 WBC 10.77 (4.50-11.00) K/uL RBC 4.34 (4.00-5.20) m/uL Hgb 11.8 L (12.0-16.0) gm/dL Hct 38.7 (33.0-51.0) % MCV 89 (80-100) fL MCH 27 (26-34) pg MCHC 31 L (32-36) gm/dL RDW Coeff of Rolo 14.5 (11.5-15.5) % Plt Count 404 (140-440) K/uL Neut % (Auto) 77.1 H (42.0-72.0) % Lymph % (Auto) 10.3 L (20-44) % Hettinger % (Auto) 10.3 (0.0-11.0) % Eos % (Auto) 1.3 (0.0-7.0) % Baso % (Auto) 0.8 (0.0-3.0) % Neut # (Auto) 8.30 H (1.7-7.0) K/uL Lymph # (Auto) 1.10 (0.90-2.90) K/uL Hettinger # (Auto) 1.10 H (0.00-0.90) K/UL Eos # (Auto) 0.14 (0.00-0.50) K/uL Baso # (Auto) 0.09 (0.00-0.30) K/uL Abs Immat Gran (auto) 0.02 (0.00-0.30) K/uL Imm/Tot Granulo (auto) 0.2 % INR 1.90 H (0.91-1.10) Sodium 138 (135-149) mmol/L Potassium 3.6 (3.6-5.1) mmol/L Chloride 106 (96-114) mmol/L Carbon Dioxide 20 (20-32) mmol/L Anion Gap 12 (7-15) mEq/L BUN 18 (7-30) mg/dL Creatinine 0.7 (0.5-1.5) mg/dL Estimated Creat Clear 44.98 Estimated GFR 87 ml/min Glucose 55 L (60-115) mg/dL Lactate 1.4 (0.5-1.9) mmol/L Calcium 8.9 (8.4-10.6) mg/dL Total Bilirubin 0.6 (0.1-1.5) mg/dL AST 30 (12-35) U/L ALT 14 (4-35) U/L Alkaline Phosphatase 91 (40-150) U/L Total Creatine Kinase 61 (41-117) U/L Troponin I 0.10 H* 0.11 H* (0.01-0.04) ng/mL Total Protein 6.6 (6.0-8.3) g/dL Albumin 3.7 (3.3-5.0) g/dL Procalcitonin 0.15 (<0.50) ng/mL Urine Color Dark yellow (Yellow) Urine Appearance Cloudy A (Clear) Urine pH 6.0 (5.0-8.5) Ur Specific [place] >= 1.030 (1.000-1.030) Urine Protein 2+ A (Negative) Urine Glucose (UA) Negative (Negative) Urine Ketones 3+ A (Negative) Urine Blood 2+ A (Negative) Urine Nitrite Positive A (Negative) Urine Bilirubin Negative (Negative) Urine Urobilinogen 0.2 (0.2-1.0) Ur Leukocyte Esterase 1+ A (Negative) Urine RBC 0-2 (0-2) Urine WBC 10-25 A (0-5) Ur Squamous Epith Cells Few (None-Few) Urine Bacteria Many A (None) Lab Acknowledgement Test Added Test Added 09/04/23 Range/Units 20:56 WBC (4.50-11.00) K/uL RBC (4.00-5.20) m/uL Hgb (12.0-16.0) gm/dL Hct (33.0-51.0) % MCV (80-100) fL MCH (26-34) pg MCHC (32-36) gm/dL RDW Coeff of Rolo (11.5-15.5) % Plt Count (140-440) K/uL Neut % (Auto) (42.0-72.0) % Lymph % (Auto) (20-44) % Hettinger % (Auto) (0.0-11.0) % Eos % (Auto) (0.0-7.0) % Baso % (Auto) (0.0-3.0) % Neut # (Auto) (1.7-7.0) K/uL Lymph # (Auto) (0.90-2.90) K/uL Hettinger # (Auto) (0.00-0.90) K/UL Eos # (Auto) (0.00-0.50) K/uL Baso # (Auto) (0.00-0.30) K/uL Abs Immat Gran (auto) (0.00-0.30) K/uL Imm/Tot Granulo (auto) % INR (0.91-1.10) Sodium (135-149) mmol/L Potassium (3.6-5.1) mmol/L Chloride (96-114) mmol/L Carbon Dioxide (20-32) mmol/L Anion Gap (7-15) mEq/L BUN (7-30) mg/dL Creatinine (0.5-1.5) mg/dL Estimated Creat Clear Estimated GFR ml/min Glucose (60-115) mg/dL Lactate (0.5-1.9) mmol/L Calcium (8.4-10.6) mg/dL Total Bilirubin (0.1-1.5) mg/dL AST (12-35) U/L ALT (4-35) U/L Alkaline Phosphatase (40-150) U/L Total Creatine Kinase (41-117) U/L Troponin I (0.01-0.04) ng/mL Total Protein (6.0-8.3) g/dL Albumin (3.3-5.0) g/dL Procalcitonin (<0.50) ng/mL Urine Color (Yellow) Urine Appearance (Clear) Urine pH (5.0-8.5) Ur Specific Montgomery (1.000-1.030) Urine Protein (Negative) Urine Glucose (UA) (Negative) Urine Ketones (Negative) Urine Blood (Negative) Urine Nitrite (Negative) Urine Bilirubin (Negative) Urine Urobilinogen (0.2-1.0) Ur Leukocyte Esterase (Negative) Urine RBC (0-2) Urine WBC (0-5) Ur Squamous Epith Cells (None-Few) Urine Bacteria (None) Lab Acknowledgement Test Added <Betsey Quiroz MD - Last Filed: 09/04/23 21:30> Imaging Data CT scan - abdomen: Attestation: I have reviewed the pertinent imaging results. <Betsey Gonzalez MD - Last Filed: 09/04/23 21:30> My impression: Radiologist did call this report to me. INR was added on the patient's labs, do wonder if she has perhaps subtherapeutic With her Coumadin. She had not reportedly taken her metoprolol for the last 3 days. If she is therapeutic on Coumadin, maybe a Coumadin failure. Await INR, should not be that long. If INR is subtherapeutic, will bridge with Lovenox after talking to the hospitalist to make sure they agree. Her platelet count is good. <Betsey Quiroz MD - Last Filed: 09/04/23 21:30> Radiologist's impression: Patient: DARRON HALL Facility:?[facility] Patient ID:?[id number] Site Patient ID:?[id number]. Site :?[id number] Study:?CT-Abdomen/Pelvis W/ISOVUE 370 71CC-09/04/2023 7:52:03 PM Ordering Physician:MARY Final Report: INDICATION: Diffuse abdominal pain. Known urinary tract infection. COMPARISON: 06/05/2023 TECHNIQUE: CT of the abdomen and pelvis with 71 cc of Isovue 370 intravenous contrast. Please note that all CT scans at this facility use dose modulation, iterative reconstruction, and/or weight-based dosing when appropriate to reduce radiation dose to as low as reasonably achievable. FINDINGS: ABDOMEN Liver: Normal hepatic attenuation. No suspicious focal hepatic lesion. Unchanged mild intrahepatic biliary ductal dilatation. Patent portal and hepatic veins. Gallbladder: Cholecystectomy. Normal common duct caliber. Pancreas: Normal pancreatic attenuation. No focal lesion. Normal duct caliber. No peripancreatic inflammatory changes. Spleen: Normal splenic attenuation. No suspicious focal lesion. Patent splenic artery and vein. Adrenal Glands: Symmetrical adrenal glands. No focal lesion of significance. Kidneys: Normal bilateral renal attenuation. No suspicious focal lesion. No obstructing nephrolith or dilatation of the intrarenal collecting systems. Patent renal arteries and veins. Nondilated upper urinary tracts. Gastrointestinal tract: Normal caliber, attenuation and wall thickness of the gastrointestinal tract. No inflammatory changes. Normal mesentery. Normal appendix. Vascular: Nonocclusive proximal left superficial femoral vein DVT (series 2; images 115-121). Severe aortoiliac atherosclerotic mural calcification. Abdominal aorta and its major proximal branches including the celiac, superior mesenteric, inferior mesenteric, renal, and bilateral common iliac arteries are patent. Inferior vena cava, portal and superior mesenteric veins are patent. Additional findings: No incidental adenopathy. No significant ascites, free fluid or pneumoperitoneum. PELVIS Streak artifact associated with a right hip arthroplasty limits interpretation. Catheterized bladder. The [place] catheter tents the escalera of the bladder where it abuts the bladder wall but is contained within the bladder lumen. Hysterectomy. No abnormal free fluid. No incidental adenopathy. 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 Advanced left hip osteoarthrosis with flattening of the femoral head and obliteration of the joint space. Left hip effusion. L3-L5 posterior interbody lumbar fusion and discectomy. Intervertebral disc spacing devices are present at the anterior margin of the intervertebral disc spaces at the instrumented levels. LOWER THORAX Findings consistent with round atelectasis in the left lower lobe are unchanged. Partially included lower thoracic wall, lungs, pleural spaces and mediastinum are otherwise without significant incidental findings. IMPRESSION: 1. Nonocclusive DVT of the left proximal superficial femoral vein, new in the interval since the most recent prior study of 06/05/2023. This was discussed with the provider caring for the patient, Dr. Quiroz, at 8:55 p.m. [employer]. 2. No imaging findings to explain diffuse abdominal pain. 3. In this patient with a history of a urinary tract infection, there is no evidence of obstructive uropathy. No evidence of pyelonephritis or renal abscess. The bladder is catheterized, as described above. Please note that all CT scans at this facility use dose modulation, iterative reconstruction, and/or weight-based dosing when appropriate to reduce radiation dose to as low as reasonably achievable. Dictated by Lane You MD @ 09/04/2023 8:56:15 PM (Electronic Signature) <Betsey Quiroz MD - Last Filed: 09/04/23 21:30> CT scan - head: Attestation: I have reviewed the pertinent imaging results. <Betsey Gonzalez MD - Last Filed: 09/04/23 21:30> Radiologist's impression: Patient: DARRON HALL Facility:?[facility] Patient ID:?[id number] Site Patient ID:?[id number]. Site :?[id number] Study:?CT-Head W/O-09/04/2023 8:52:49 PM Ordering Physician:MARY Final Report: INDICATION: Altered mental status. No other history provided. TECHNIQUE: CT of the head without contrast. Coronal and sagittal reformats. Bone and soft tissue algorithms. COMPARISON: 06/05/2023 CT FINDINGS: No acute intracranial hemorrhage or extra-axial collection. No evidence of acute cortical infarction. Encephalomalacia in the right posterior temporal lobe compatible with chronic infarct. No mass effect or midline shift. Moderate generalized cerebral/cerebellar parenchymal volume loss. Moderate regions of decreased attenuation within the periventricular and subcortical white matter of both cerebral hemispheres most likely reflects chronic microvascular ischemic disease and age related change in this patient. Vascular calcifications within the carotid siphons. Orbital contents are normal. No calvarial fractures. No lytic or sclerotic osseous lesions within the calvarium or skull base. Scalp and other imaged soft tissue structures are normal. Mastoid air cells are clear. Postoperative changes of occiput-cervical spine fusion hardware with significant associated metallic artifact. Mild mucosal thickening in the left maxillary sinus with partially visualized nasal polyp. Leftward deviation of the nasal septum. TMJ degenerative changes. IMPRESSION: 1. No evidence of acute intracranial abnormality. No significant changes compared to the prior exam. 2. Moderate generalized parenchymal volume loss and chronic microangiopathic changes. 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 Please note that all CT scans at this facility use dose modulation, iterative reconstruction, and/or weight-based dosing when appropriate to reduce radiation dose to as low as reasonably achievable. Dictated by Jean-Pierre Gu MD @ 09/04/2023 9:19:30 PM (Electronic Signature) <Betsey Quiroz MD - Last Filed: 09/04/23 21:30> ECG Data Attestation: I personally reviewed and interpreted this ECG as follows: <Marcelino Moreno DO - Last Filed: 09/05/23 16:23> Interpretation: Initial EKG at 18:52 Sinus tachycardia with a rate of 113 beats per minute, normal intervals, normal axis, no ST or T-wave abnormalities. Appears similar to previous EKGs on file of note though this EKG has much more artifact and previous ones. Repeat EKG at 20:05 shows sinus tachycardia with a rate of 120 beats per minute, normal intervals, normal axis, no ST or T-wave abnormalities. There is still some artifact but not as much. <Marcelino Moreno DO - Last Filed: 09/05/23 16:23> Discharge Plan Discharge Clinical Impression: Urinary tract infection DVT (deep venous thrombosis) Qualifiers: DVT location: lower extremity Affected thrombotic vein of extremity: femoral Chronicity: acute Laterality: left Qualified Code(s): I82.412 - Acute embolism and thrombosis of left femoral vein <Marcelino Moreno DO - Last Filed: 09/05/23 16:23> Patient Disposition: Admitted As Observation <Marcelino Moreno DO - Last Filed: 09/05/23 16:23> Condition: Improved <Marcelino Moreno DO - Last Filed: 09/05/23 16:23>
[2023-09-04] MEDS: METOPROLOL TARTRATE 1 MG/ML inj 2.5 MG IVP (20:14)
[2023-09-04] MEDS: METOPROLOL TARTRATE 25 MG TABLET PO (20:17)
[2023-09-04] MEDS: cefTRIAXone 1 GM in 0.9 % SODIUM CHLORIDE Mini-bag 100 ML IVPB (20:38)
[2023-09-04] MEDS: HYDROCODONE-ACETAMIN 5-325 MG 1 TAB PO (21:03)
[2023-09-04 21:06] LABS: Prothrombin Time 23.2 Seconds
[2023-09-04 21:09] LABS: Troponin I* 0.11 ng/mL (0.01-0.04)
[2023-09-04] MEDS: 0.9 % SODIUM CHLORIDE 1000 ml 1,000 ML 500 ML IV (22:35)
--- NOTE | 2023-09-04 22:44 | P.IMHP_ITS ---
Hospitalist- H&P: HPI History of Present Illness Time Seen by Provider: 22:00 Date Seen: 09/04/23 Chief complaint: U.T.I Narrative: Shilpi Frost is a 78 year old female with a complicated medical history who started having urinary symptoms on for which a urine culture was obtained and then she was too weak to get out of her chair today. She was in her usual state of health and strength living independently at [facility] when she started to have dysuria on . She spoke with her daughter about it and her daughter contacted the patient's primary care provider, Dr. Moore who ordered a urine culture. This was obtained at [facility] and sent to the clinic. The culture results came back late Wednesday after the clinic had already closed. In the meantime she has been weak and having difficulty getting out of her chair to get food, water, and medications. Today she could not get out of her chair at all and she was having urinary urgency. She was also having rigors today although she denies any fevers or chills. She called her daughter, but the patient was too weak to get into her daughter's car and so they had to call EMS. Her daughter notes that Shilpi is mildly confused today where is she is normally more sharp. Shilpi was able to give me most of her history, but could not remember the name of the facility where she lives. In the emergency department she got 1 L of IV fluid and a 2nd IV fluid bolus was started and is still being infused. Ceftriaxone and a dose of Lovenox were also given in the emergency department. Blood cultures were drawn as was a repeat urine culture and these are pending. Review of Systems Status of ROS: Reports: 10 or more systems reviewed and unremarkable except as noted in History and below 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 ?D50.0 - Iron deficiency anemia secondary to blood loss (chronic) (ICD-10) Anemia of chronic disease ?D63.8 - Anemia in other chronic diseases classified elsewhere (ICD-10) Atrial fibrillation with rapid ventricular response ?I48.91 - Unspecified atrial fibrillation (ICD-10) Atrial fibrillation ?I48.91 - Unspecified atrial fibrillation (ICD-10) Hypothyroidism ?E03.9 - Hypothyroidism, unspecified (ICD-10) Left leg cellulitis ?L03.116 - Cellulitis of left lower limb (ICD-10) Systemic lupus erythematosus ?M32.9 - Systemic lupus erythematosus, unspecified (ICD-10) Psoriasis ?L40.9 - Psoriasis, unspecified (ICD-10) Anemia ?D64.9 - Anemia, unspecified (ICD-10) Yeast dermatitis ?B37.2 - Candidiasis of skin and nail (ICD-10) Environmental allergies ?Z91.09 - Other allergy status, other than to drugs and biological substances (ICD-10) Osteoarthritis of left hip ?M16.12 - Unilateral primary osteoarthritis, left hip (ICD-10) Osteoarthritis of right knee ?M17.11 - Unilateral primary osteoarthritis, right knee (ICD-10) Osteoarthritis of right shoulder ?M19.011 - Primary osteoarthritis, right shoulder (ICD-10) Urethral caruncle ?N36.2 - Urethral caruncle (ICD-10) Weakness ?R53.1 - Weakness (ICD-10) Urinary tract infection ?N39.0 - Urinary tract infection, site not specified (ICD-10) Unsteady gait ?R26.81 - Unsteadiness on feet (ICD-10) Tubular adenoma ?D36.9 - Benign neoplasm, unspecified site (ICD-10) Spinal stenosis ?M48.00 - Spinal stenosis, site unspecified (ICD-10) 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 (ICD-10) Seasonal allergic rhinitis (01/27/12) ?J30.2 - Other seasonal allergic rhinitis (ICD-10) Scoliosis (01/27/12) ?M41.9 - Scoliosis, unspecified (ICD-10) Right shoulder pain ?M25.511 - Pain in right shoulder (ICD-10) Pyelonephritis ?N12 - Tubulo-interstitial nephritis, not specified as acute or chronic (ICD- 10) Positive colorectal cancer screening using DNA-based stool test ?R19.5 - Other fecal abnormalities (ICD-10) Physician Orders for Life-Sustaining Treatment (09/28/17) ?Z78.9 - Other specified health status (ICD-10) Physical deconditioning ?R53.81 - Other malaise (ICD-10) Physical debility ?R53.81 - Other malaise (ICD-10) Peripheral edema (05/12/10) ?R60.9 - Edema, unspecified (ICD-10) Osteopenia (05/26/11) ?M85.80 - Other specified disorders of bone density and structure, unspecified site (ICD-10) Nonspecific colitis ?K52.9 - Noninfective gastroenteritis and colitis, unspecified (ICD-10) Long-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 - Immunodeficiency due to drugs (ICD-10) ?T38.0X5A - Adverse effect of glucocorticoids and synthetic analogues, initial encounter (ICD-10) ?Z79.52 - intermediate card tender (current) use of systemic steroids (ICD-10) Hypokalemia ?E87.6 - Hypokalemia (ICD-10) Hypertension (08/16/12) ?I10 - Essential (primary) hypertension (ICD-10) Hyperlipidemia ?E78.5 - Hyperlipidemia, unspecified (ICD-10) High C-reactive protein ?R79.82 - Elevated C-reactive protein (CRP) (ICD-10) Health care directive on file (07/05/15) ?Z78.9 - Other specified health status (ICD-10) Gastroesophageal reflux disease (04/11/10) ?K21.9 - Gastro-esophageal reflux disease without esophagitis (ICD-10) Dilated cardiomyopathy (05/12/10) ?I42.0 - Dilated cardiomyopathy (ICD-10) Dilated bile duct ?K83.8 - Other specified diseases of biliary tract (ICD-10) Depression (08/16/12) ?F32.A - Depression, unspecified (ICD-10) Constipation ?K59.00 - Constipation, unspecified (ICD-10) Colitis ?K52.9 - Noninfective gastroenteritis and colitis, unspecified (ICD-10) Chronic pain syndrome ?G89.4 - Chronic pain syndrome (ICD-10) Chronic pain ?G89.29 - Other chronic pain (ICD-10) Cellulitis ?L03.90 - Cellulitis, unspecified (ICD-10) Anxiety (04/11/10) ?F41.9 - Anxiety disorder, unspecified (ICD-10) Anticoagulation goal of INR 2 to 3 ?Z51.81 - Encounter for therapeutic drug level monitoring (ICD-10) ?Z79.01 - longterm (current) use of anticoagulants (ICD-10) Abnormal liver function tests ?R79.89 - Other specified abnormal findings of blood chemistry (ICD-10) Long-term (current) use of anticoagulants, INR goal 2.0-3.0 ?Z79.01 - intermediate card tender (current) use of anticoagulants (ICD-10) Knee osteoarthritis ?M17.10 - Unilateral primary osteoarthritis, unspecified knee (ICD-10) POLST (Physician Orders for Life-Sustaining Treatment) ?Z78.9 - Other specified health status (ICD-10) Irritation of right ear ?H93.8X1 - Other specified disorders of right ear (ICD-10) History of pulmonary embolism (2017) ?Z86.711 - Personal history of pulmonary embolism (ICD-10) History of peptic ulcer ?Z87.11 - Personal history of peptic ulcer disease (ICD-10) History of deep vein thrombosis (DVT) of lower extremity (2017) ?Z86.718 - Personal history of other venous thrombosis and embolism (ICD-10) Head injury with loss of consciousness ?S06.9X9A - Unspecified intracranial injury with loss of consciousness of unspecified duration, initial encounter (ICD-10) Surgical History S/P foot surgery, right (08/28/14) ?Z98.890 - Other specified postprocedural states (ICD-10) 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) ?Z96.619 - Presence of unspecified artificial shoulder joint (ICD-10) Status post lumbar spinal fusion (04/11/10) ?Z98.1 - Arthrodesis status (ICD-10) Status post cervical spinal arthrodesis (09/2017) ?Z98.1 - Arthrodesis status (ICD-10) History of total hip replacement (05/12/10) ?Z96.649 - Presence of unspecified artificial hip joint (ICD-10) History of left knee replacement (05/12/10) ?Z96.652 - Presence of left artificial knee joint (ICD-10) History of hysterectomy (04/11/10) ?Z90.710 - Acquired absence of both cervix and uterus (ICD-10) History of colonoscopy (05/18/19) ?Z98.890 - Other specified postprocedural states (ICD-10) History of cholecystectomy (05/12/10) ?Z90.49 - Acquired absence of other specified parts of digestive tract (ICD- 10) Family History Brother Coronary artery disease Father Cancer Social History (Updated 09/04/23 @ 22:56 by Liliana Talavera MD) Narrative: Patient lives at [facility], independent living at [facility]. She is . 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 Her daughter, Giselle, lives in the area. Code status is DNR/DNI. Healthcare power of wash driller helper is her daughter Giselle from [place]. She quit smoking in 1996. Has been chewing nicotine gum since then. She says she chews pieces constantly throughout the day and is never without a piece in her mouth. She does not drink alcohol. What is your current living situation?: I presently have a place to live Problems where you live: no known problems Problems where you live details: no known problems In the past 12 months, utilities in danger of being shut off: no In past 12 months, lack of transportation kept you from medical appts, meetings, work, or getting things needed for daily living: no In the past 12 mos, have been you worried that your food would run out before you had money to buy more?: never true In the past 12 mos, the food you bought just didn't last and you didn't have money to buy more?: never true Highest level of school completed/degree received: 12th grade, no diploma Smoking Status: Never smoker Second hand tobacco smoke exposure: No How often do you have a drink containing alcohol: never How often do you have six or more drinks on one occasion: Never AUDIT-C Alcohol total score: 0 Non-prescribed substance use: denies use Caffeine: Yes (4-5 cups daily) How often does anyone, including family, friends and others, physically hurt you : never How often does anyone, including family, friends and others, insult or talk down to you: never How often does anyone, including family, friends and others, threaten you with harm: never How often does anyone, including family, friends and others, scream or curse at you: never Little interest or pleasure in doing things: several days Feeling down, depressed, or hopeless: more than half the days service: No Meds Home Medications and Allergies Home Medications Medication Instructions Recorded Confirmed Type melatonin 3 mg capsule 3 mg PO HS PRN 01/13/22 07/27/23 History omeprazole 20 mg capsule,delayed 20 mg PO DAILY 05/13/23 07/27/23 History release prednisone 10 mg tablet 10 mg PO DAILY 05/13/23 07/27/23 History levothyroxine 25 mcg tablet 25 mcg PO DAILY 06/05/23 07/27/23 History loratadine 10 mg tablet 10 mg PO DAILY allergic symptoms 06/05/23 07/27/23 History magnesium oxide 400 mg PO DAILY@12 06/05/23 07/27/23 History clobetasol 0.05 % lotion 1 applic topical BID PRN 07/13/23 07/27/23 History Allergies Allergy/AdvReac Type Severity Reaction Status Date / Time amitriptyline Allergy Severe disorientat Verified 07/27/23 15:37 ion penicillin V Allergy Severe upset Verified 07/27/23 15:37 stomach and rash perphenazine Allergy Severe disorientat Verified 07/27/23 15:37 ion adhesive Allergy Unknown Unknown Verified 07/27/23 15:37 bee venom protein (honey bee) AdvReac Severe Anaphylaxis Verified 07/27/23 15:37 latex AdvReac Severe Rash Verified 07/27/23 15:37 amoxicillin AdvReac Intermediate Diarrhea Verified 07/27/23 15:37 Tricyclic antidepressant Allergy Severe disorientat Uncoded 07/27/23 15:37 ion Bee venom Allergy Mild swells and Uncoded 07/27/23 15:37 area turns red Sulfa drugs Allergy Unknown Unknown Uncoded 07/27/23 15:37 Clavulanate AdvReac Intermediate Diarrhea Uncoded 07/27/23 15:37 Exam Narrative: Exam Narrative: General: No acute distress. Awake alert oriented x3. Mildly confused about some things such as it took her a long time to come up with the name of the facility where she is living. HEENT: Normocephalic atraumatic, pupils equally round and reactive to light and accommodation. Oropharynx clear. Mucous membranes are moist. No cervical lymphadenopathy, thyromegaly or carotid bruits. No JVD. Cardiovascular: Irregularly irregular, tachycardic. No murmurs, gallops, or rubs. Chest: No increased work of breathing. Clear to auscultation bilaterally. No crackles or wheezes. Abdomen: Bowel sounds present. Soft, nondistended, nontender. No hepatosplenomegaly or masses. Genitourinary: Normal female external genitalia without rash. Extremities: Laterally angulated and enlarged MCP joints of the hands consistent with history of rheumatoid arthritis. No edema, chronic venous stasis in both lower extremities, chronic vasculitis on the right abbott. Diminished bilateral pedal pulses. Skin: No jaundice, no pallor, no other rashes. Neuro: Grossly intact. No focal deficits. Const: Vital Signs, click to edit/add: Vital Signs - 24 hr 09/04/23 18:17 09/04/23 19:13 09/04/23 19:15 Temperature 98.6 F Pulse Rate 111 H 110 H Pulse Rate [Right Pulse Oximeter] 105 H Respiratory Rate 22 Blood Pressure Blood Pressure [Ri ght Upper Arm] 147/89 H Pulse Oximetry 98 95 99 Oxygen Delivery Me thod Room Air 09/04/23 19:30 09/04/23 19:32 09/04/23 20:02 Temperature Pulse Rate 135 H 139 H Pulse Rate [Right Pulse Oximeter] Respiratory Rate 18 Blood Pressure 155/82 H 155/79 H Blood Pressure [Ri ght Upper Arm] Pulse Oximetry 98 97 Oxygen Delivery Me thod Room Air Room Air 09/04/23 20:08 09/04/23 20:09 09/04/23 20:15 Temperature Pulse Rate 163 H 150 H 128 H Pulse Rate [Right Pulse Oximeter] Respiratory Rate Blood Pressure 136/83 121/102 H Blood Pressure [Ri ght Upper Arm] Pulse Oximetry 97 96 94 Oxygen Delivery Me thod Room Air Room Air 09/04/23 20:16 09/04/23 20:17 09/04/23 20:22 Temperature Pulse Rate 121 H 115 H Pulse Rate [Right Pulse Oximeter] Respiratory Rate Blood Pressure 128/113 H 126/81 Blood Pressure [Ri ght Upper Arm] Pulse Oximetry 95 95 Oxygen Delivery La thod Room Air Room Air 09/04/23 20:27 09/04/23 20:31 09/04/23 20:34 Temperature Pulse Rate 136 H 135 H 129 H Pulse Rate [Right Pulse Oximeter] Respiratory Rate Blood Pressure 101/90 H Blood Pressure [Ri ght Upper Arm] Pulse Oximetry 90 94 94 Oxygen Delivery Me thod Room Air 09/04/23 20:37 09/04/23 20:49 09/04/23 20:50 Temperature Pulse Rate 129 H 133 H 133 H Pulse Rate [Right Pulse Oximeter] Respiratory Rate Blood Pressure 128/74 123/89 Blood Pressure [Ri ght Upper Arm] Pulse Oximetry 95 90 92 Oxygen Delivery Me thod Room Air Room Air 09/04/23 20:52 09/04/23 20:57 09/04/23 21:00 Temperature Pulse Rate 145 H 138 H 125 H Pulse Rate [Right Pulse Oximeter] Respiratory Rate Blood Pressure 110/76 124/86 Blood Pressure [Ri ght Upper Arm] Pulse Oximetry 94 92 94 Oxygen Delivery Me thod Room Air Room Air 09/04/23 21:02 09/04/23 21:07 09/04/23 21:11 Temperature 98.7 F Pulse Rate 137 H 130 H Pulse Rate [Right Pulse Oximeter] Respiratory Rate Blood Pressure 106/92 H 103/73 Blood Pressure [Ri ght Upper Arm] Pulse Oximetry 92 93 Oxygen Delivery Me thod Room Air Room Air 09/04/23 21:12 09/04/23 21:15 09/04/23 21:17 Temperature Pulse Rate 126 H 127 H 119 H Pulse Rate [Right Pulse Oximeter] Respiratory Rate Blood Pressure 95/78 102/65 Blood Pressure [Ri ght Upper Arm] Pulse Oximetry 94 91 90 Oxygen Delivery Me thod Room Air Room Air Room Air 09/04/23 21:22 09/04/23 21:27 Temperature Pulse Rate 123 H 123 H Pulse Rate [Right Pulse Oximeter] Respiratory Rate Blood Pressure 106/66 103/72 Blood Pressure [Ri ght Upper Arm] Pulse Oximetry 90 92 Oxygen Delivery Me thod Room Air Room Air Hospitalist - H&P: Result Labs Labs: Short CBC 09/04/23 Range/Units 19:00 WBC 10.77 (4.50-11.00) K/uL Hgb 11.8 L (12.0-16.0) gm/dL Hct 38.7 (33.0-51.0) % Plt Count 404 (140-440) K/uL BMP 09/04/23 19:00 Sodium 138 Potassium 3.6 Chloride 106 Carbon Dioxide 20 BUN 18 Creatinine 0.7 Glucose 55 L Calcium 8.9 Cardiac Enzymes 09/04/23 09/04/23 Range/Units 19:00 20:32 Troponin I 0.10 H* 0.11 H* (0.01-0.04) ng/mL Liver Function 09/04/23 Range/Units 19:00 Total Bilirubin 0.6 (0.1-1.5) mg/dL AST 30 (12-35) U/L ALT 14 (4-35) U/L Alkaline Phosphatase 91 (40-150) U/L Albumin 3.7 (3.3-5.0) g/dL Urine 09/04/23 Range/Units 19:00 Urine Color Dark yellow (Yellow) Urine Appearance Cloudy A (Clear) Urine pH 6.0 (5.0-8.5) Ur Specific [place] >= 1.030 (1.000-1.030) Urine Protein 2+ A (Negative) Urine Glucose (UA) Negative (Negative) Specimen: [id number] COMP Collected: 09/03/23-1499 Received: 09/03/23 -160 Source: Urine CC Sp Descrip: Sub Dr: Prakash Moore M.D. Other Dr: Procedure Result Site Urine Culture* Final ML Organism 1 Escherichia coli Ur Spark[place] Count >100,000 CFU/ml E coli [facility] RX --------- --- Ampicillin <=2 S Ampicillin/Sulbactam <=2 S Cefazolin <=4 S Cefepime <=1 S Cefoxitin <=4 S Ceftazidime <=1 S Ceftriaxone <=1 S Ciprofloxacin <=0.25 S Ertapenem <=0.5 S Gentamicin <=1 S Imipenem <=0.25 S Levofloxacin <=0.12 S Nitrofurantoin <=16 S Tobramycin <=1 S Trimethoprim/Sulfamethoxazole <=20 S Piperacillin/Tazobactam <=4 S 09/04/2023 10:04 p.m. EKG: Atrial fibrillation with rapid ventricular response, 129 beats per minute, low-voltage QRS, cannot rule out anterior infarct, age undetermined. Study: CT-Abdomen/Pelvis W/ISOVUE 370 71CC-09/04/2023 7:52:03 PM Ordering Physician: WOODROW Final Report: INDICATION: Diffuse abdominal pain. Known urinary tract infection. COMPARISON: 06/05/2023 TECHNIQUE: CT of the abdomen and pelvis with 71 cc of Isovue 370 intravenous contrast. Please note that all CT scans at this facility use dose modulation, iterative reconstruction, and/or weight-based dosing when appropriate to reduce radiation dose to as low as reasonably achievable. FINDINGS: ABDOMEN Liver: Normal hepatic attenuation. No suspicious focal hepatic lesion. Unchanged mild intrahepatic biliary ductal dilatation. Patent portal and hepatic veins. Gallbladder: Cholecystectomy. Normal common duct caliber. Pancreas: Normal pancreatic attenuation. No focal lesion. Normal duct caliber. No peripancreatic inflammatory changes. Spleen: Normal splenic attenuation. No suspicious focal lesion. Patent splenic artery and vein. Adrenal Glands: Symmetrical adrenal glands. No focal lesion of significance. Kidneys: Normal bilateral renal attenuation. No suspicious focal lesion. No obstructing nephrolith or dilatation of the intrarenal collecting systems. Patent renal arteries and veins. Nondilated upper urinary tracts. Gastrointestinal tract: Normal caliber, attenuation and wall thickness of the gastrointestinal tract. No inflammatory changes. Normal mesentery. Normal appendix. Vascular: Nonocclusive proximal left superficial femoral vein DVT (series 2; images 115-121). Severe aortoiliac atherosclerotic mural calcification. Abdominal aorta and its major proximal branches including the celiac, superior mesenteric, inferior mesenteric, renal, and bilateral common iliac arteries are patent. Inferior vena cava, portal and superior mesenteric veins are patent. Additional findings: No incidental adenopathy. No significant ascites, free fluid or pneumoperitoneum. PELVIS Streak artifact associated with a right hip arthroplasty limits interpretation. Catheterized bladder. The [place] catheter tents the escalera of the bladder where it abuts the bladder wall but is contained within the bladder lumen. Hysterectomy. No abnormal free fluid. No incidental adenopathy. 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 Advanced left hip osteoarthrosis with flattening of the femoral head and obliteration of the joint space. Left hip effusion. L3-L5 posterior interbody lumbar fusion and discectomy. Intervertebral disc spacing devices are present at the anterior margin of the intervertebral disc spaces at the instrumented levels. LOWER THORAX Findings consistent with round atelectasis in the left lower lobe are unchanged. Partially included lower thoracic wall, lungs, pleural spaces and mediastinum are otherwise without significant incidental findings. IMPRESSION: 1. Nonocclusive DVT of the left proximal superficial femoral vein, new in the interval since the most recent prior study of 06/05/2023. This was discussed with the provider caring for the patient, Dr. Quiroz, at 8:55 p.m. MOLDING MANAGER. 2. No imaging findings to explain diffuse abdominal pain. 3. In this patient with a history of a urinary tract infection, there is no evidence of obstructive uropathy. No evidence of pyelonephritis or renal abscess. The bladder is catheterized, as described above. Please note that all CT scans at this facility use dose modulation, iterative reconstruction, and/or weight-based dosing when appropriate to reduce radiation dose to as low as reasonably achievable. Dictated by Lane You MD @ 09/04/2023 8:56:15 PM (Electronic Signature) Study: CT-Head W/O-09/04/2023 8:52:49 PM Ordering Physician: WOODROW Final Report: INDICATION: Altered mental status. No other history provided. TECHNIQUE: CT of the head without contrast. Coronal and sagittal reformats. Bone and soft tissue algorithms. COMPARISON: 06/05/2023 CT FINDINGS: No acute intracranial hemorrhage or extra-axial collection. No evidence of acute cortical infarction. Encephalomalacia in the right posterior temporal lobe compatible with chronic infarct. No mass effect or midline shift. Moderate generalized cerebral/cerebellar parenchymal volume loss. Moderate regions of decreased attenuation within the periventricular and subcortical white matter of both cerebral hemispheres most likely reflects chronic microvascular ischemic disease and age related change in this patient. Vascular calcifications within the carotid siphons. Orbital contents are normal. No calvarial fractures. No lytic or sclerotic osseous lesions within the calvarium or skull base. Scalp and other imaged soft tissue structures are normal. Mastoid air cells are clear. Postoperative changes of occiput-cervical spine fusion hardware with significant associated metallic artifact. Mild mucosal thickening in the left maxillary sinus with partially visualized nasal polyp. Leftward deviation of the nasal septum. TMJ degenerative changes. IMPRESSION: 1. No evidence of acute intracranial abnormality. No significant changes compared to the prior exam. 2. Moderate generalized parenchymal volume loss and chronic microangiopathic changes. 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 Please note that all CT scans at this facility use dose modulation, iterative reconstruction, and/or weight-based dosing when appropriate to reduce radiation dose to as low as reasonably achievable. Dictated by Jean-Pierre Gu MD @ 09/04/2023 9:19:30 PM (Electronic Signature) Assessment and Plan Assessment and plan (1) Severe sepsis: Problem comment: - Immunosupressed due to chronic prednisone and methotrexate - Met criteria for severe sepsis secondary to Ecoli UTI based on elevated heart rate, elevated respiratory rate, SBP less than 90. INR is iatrogenically elevated. Lactate is notably within normal limits. Blood cultures were drawn in the emergency department. We already have culture and sensitivity results av ailable from a urine culture drawn 2 days ago. I am not finding any other possible source of infection. She got ceftriaxone and a bolus of 1 L IV fluids in the emergency department and a 2nd L was started prior to her coming to the critical care unit. I will hold off on any more fluid since she has already had good response and she has a history of cardiomyopathy and chronic diastolic heart failure. - Since arrival to the CCU, she has converted into normal sinus rhythm and blood pressure has improved. Severe sepsis appears to be resolving and so I will not order one-to-one nursing care. Since source of sepsis is known and E coli is pansensitive, continue ceftriaxone. I do not think she needs expanded antibiotic coverage. - Increase prednisone to BID for stress dosing. Status: Acute (2) Urinary tract infection: Problem comment: - Urine culture from 09/03/23 has grown out pansensitive Ecoli. Continue ceftriaxone started in the emergency department today. 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 She has not taken her medications, including warfarin for several days and her INR is now subtherapeutic, so I do not think she failed anticoagulation, rather she was noncompliant due to illness. - It is possible she has a PE which caused RVR, although she was also off her metoprolol for several days and she has converted to NSR after getting metoprolol. I am concerned about the possibility of more extensive DVT, so I have ordered a LLE US for the morning. Could also consider CT chest for PE or VQ scan, although these will likely not knife changer since she is not hypoxic and doesn't have evidence of heart failure at present. - Treat with 5 days of lovenox, restart warfarin, goal 2-3. Status: Acute (4) Subtherapeutic international normalized ratio (INR): Problem comment: Treat with lovenox and resume warfarin. Status: Acute (5) Atrial fibrillation with rapid ventricular response: Problem comment: - Suspect this was due to being off metoprolol for a few days. She has already converted to NSR after getting a dose of metoprolol in the ER. Continue metoprolol and anticoagulation. Status: Acute (6) Long-term (current) use of anticoagulants, INR goal 2.0-3.0: Problem comment: - Chronic. Indication: DVT/PE, also history of AFib - Also of note: has h/o GI bleed and anemia of chronic disease Status: Chronic (7) Elevated troponin: Problem comment: - Stable at 0.1, suspect this is her baseline. EKG reviewed. Status: Acute (8) Dilated cardiomyopathy: Problem comment: With fluid resuscitation will need to monitor cardiac respiratory status closely. 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 H/o rheumatoid arthritis, SLE Home dose chronic prednisone 10 mg daily - Give dose of prednisone tonight. Increase to BID for stress dosing. Methotrexate held Status: Chronic (11) Weakness: Problem comment: Acute on chronic related to acute illness - PT/OT consults ordered. She may need rehab due to weakness and inability to transfer independently. Status: Acute (12) POLST (Physician Orders for Life-Sustaining Treatment): Problem comment: - DNR/DNI. Patient's daughter states that the pulsed says no IV antibiotics however both the patient and her daughter tell me they do want her to have IV medications and antibiotics. Status: Chronic (13) Anemia of chronic disease: Problem comment: Hemoglobin 12.7-10.8, near baseline Status: Chronic
[2023-09-04] MEDS: ENOXAPARIN 60 MG/0.6 ML INJ SUBCUT (22:52)
[2023-09-05] VITALS (15 sets, daily range): BP systolic 107–149; BP diastolic 52–69; PULSE 61–80; RESP 15–18; TEMP 36.3–37.1; O2SAT 94–100
[2023-09-05] MEDS: predniSONE 10 MG TABLET PO (00:37)
[2023-09-05] MEDS: WARFARIN 2 MG TABLET 1 MG PO (00:37)
[2023-09-05 00:51] LABS: Creatine Kinase* 61 U/L (41-117)
[2023-09-05 01:10] LABS: Procalcitonin* 0.15 ng/mL (<0.50)
--- NOTE | 2023-09-05 04:33 | PC.NURSE ---
Pt came to floor asa unit pt @ 2300. Came up from ED with sepsis and Afib. Pt converted once reaching floor. with HR @ 85 and below and in NSR. BP came up to 127/60 @ 0300. Pt daughter to bring home walker in the am.
[2023-09-05] MEDS: HYDROCODONE-ACETAMIN 5-325 MG 1 TAB PO ×2 (05:55→20:36)
[2023-09-05] MEDS: ACETAMINOPHEN 325 MG TABLET PO (06:20)
[2023-09-05 06:41] LABS: Basophils Absolute Auto 0.03 K/uL (0.00-0.30); Basophils Percent Auto 0.4 % (0.0-3.0); Eosinophils Absolute Auto 0.01 K/uL (0.00-0.50); Eosinophils Percent Auto 0.1 % (0.0-7.0); Hematocrit 39.3 % (33.0-51.0); Hemoglobin* 11.8 gm/dL (12.0-16.0); Immature Granulocytes Abs Auto 0.02 K/uL (0.00-0.30); Immature Granulocytes Pct Auto 0.2 %; Lymphocytes Percent Auto 7.2 % (20-44); Mean Corpuscular HGB Conc 30 gm/dL (32-36); Mean Corpuscular Hemoglobin 27 pg (26-34); Mean Corpuscular Volume 91 fL (80-100); Neutrophils Percent Auto 90.1 % (42.0-72.0); Platelet Count* 384 K/uL (140-440); RDW Coefficient of Variation % 14.8 % (11.5-15.5); Red Blood Count 4.33 m/uL (4.00-5.20)
[2023-09-05 06:44] LABS: Slide Review Reflex No
[2023-09-05 06:56] LABS: Chloride* 109 mmol/L (96-114); Sodium* 140 mmol/L (135-149)
[2023-09-05 06:58] LABS: Creatinine* 0.7 mg/dL (0.5-1.5); Est. Creatinine Clearance* 43.05; Estimated Glomerular Filt Rate 87 ml/min
[2023-09-05 06:59] LABS: Anion Gap 12 mEq/L (7-15); Blood Urea Nitrogen* 19 mg/dL (7-30); Calcium* 8.4 mg/dL (8.4-10.6); Carbon Dioxide* 19 mmol/L (20-32)
[2023-09-05 07:15] LABS: Glucose* 49 mg/dL (60-115)
[2023-09-05 07:16] LABS: Procalcitonin* 0.17 ng/mL (<0.50)
[2023-09-05] MEDS: DEXTROSE 50 % SYRINGE IVP (07:33)
[2023-09-05] MEDS: HYDROCORTISONE SOD SUCCINATE 50 MG/ML inj 100 MG IVP (07:33)
[2023-09-05] MEDS: 5 % DEXTROSE IN LAC RINGER'S 1,000 ML 125 ML IV (08:13)
--- NOTE | 2023-09-05 09:00 | US_ITS ---
Patient: DARRON HALL Facility:?[facility] Patient ID:?[id number] Site Patient ID:?[id number] Site :?[id number] Study:?US-Extremity Left LEV-09/05/2023 9:28:32 AM Ordering Physician:LEONIE CONKLIN Final Report: INDICATION: Femoral vein DVT on CT. TECHNIQUE: Ultrasound venous duplex lower left extremity. Compression venous exam was performed using kirby-scale, color Doppler, and spectral Doppler analysis. COMPARISON: CT 09/04/2023. FINDINGS: Deep veins: There is a focal nonocclusive thrombus involving the left femoral vein at the level of the proximal thigh, which corresponds to the filling defect seen on CT. Additionally, there is a filling defect involving 1 of the paired peroneal veins at the level of the calf. Otherwise, no filling defects identified within the remaining portions of the left femoral vein, common femoral vein, profunda femoris vein, popliteal vein, posterior tibial veins or the 2nd peroneal vein. Contralateral right common femoral vein is patent. Superficial veins: Visualized portion of the greater saphenous vein is fully compressible. No popliteal cyst. IMPRESSION: 1. Focal nonocclusive thrombus involving the left femoral vein at the level of the proximal thigh, corresponding with the abnormality seen on CT. 2. Additional deep venous thrombosis involving 1 of the paired peroneal veins at the calf. Dictated by Kathie Heaton MD @ 09/05/2023 10:03:25 AM ----- ADDENDUM ----- Discussed via telephone with Dr. Freeman on 09/05/2023 10:22 a.m. Dictated by Kathie Heaton MD @ Sep 05 2023 10:24AM Signed by:?Kathie Heaton MD @09/05/2023 10:03:25 AM (Electronic Signature)
[2023-09-05] MEDS: METOPROLOL SUCCINATE (XL) 25 MG TAB PO (09:51)
[2023-09-05] MEDS: ENOXAPARIN 60 MG/0.6 ML INJ SUBCUT ×2 (09:51→20:35)
[2023-09-05] MEDS: POTASSIUM CHLORIDE 10 MEQ CAPSULE ER 20 MEQ PO ×2 (09:52→20:35)
[2023-09-05] MEDS: GABAPENTIN 600 MG TABLET 1200 MG PO ×2 (09:52→20:35)
--- NOTE | 2023-09-05 11:30 | REH.PT ---
OT/PT evaluation on hold, discussed with nursing pt is not appropriate for therapies today, she is crying a lot, too ill day to move. Nsg turning pt in bed. Colindres in place. Will attempt tomorrow.
--- NOTE | 2023-09-05 12:30 | PM.IMPN1 ---
Progress Note: A&P Assessment and plan (1) Acute adrenal crisis: Problem details: Likely cause of constitutional symptoms and hypoglycemia. IV hydrocortisone, fluids, dextrose. Caution with fluids due to history of heart failure. Status: Acute (2) Severe sepsis: Problem details: - Immunosupressed due to chronic prednisone and methotrexate - Met criteria for severe sepsis secondary to Ecoli UTI based on elevated heart rate, elevated respiratory rate, SBP less than 90. INR is iatrogenically elevated. Lactate is notably within normal limits. Blood cultures were drawn in the emergency department. We already have culture and sensitivity results available from a urine culture drawn 2 days ago. No other apparent source of infection. Bilateral leg edema is more likely chronic venous stasis than cellulitis. She got ceftriaxone and a bolus of 1 L IV fluids in the emergency department and a 2nd L was started prior to her coming to the critical care unit. - Since arrival to the CCU, she has converted into normal sinus rhythm and blood pressure has improved. Severe sepsis appears to be resolving and so I will not order one-to-one nursing care. Since source of sepsis is known and E coli is pansensitive, continue ceftriaxone. Status: Acute (3) Immunosuppression: Problem details: On chronic prednisone and methotrexate for inflammatory arthritis Status: Acute (4) Urinary tract infection: Problem details: Pansensitive E coli on culture from 09/03/2023 Status: Acute (5) Heart failure: Problem details: History of heart failure with dilated cardiomyopathy. Caution with fluid resuscitation. Status: Acute (6) Subtherapeutic international normalized ratio (INR): Problem details: History of PE and DVT. On chronic warfarin. Patient had INR of 1.1 on August 10 and August 16 for unknown reasons. She is unable to tell me if she forgot her medications or was instructed change the dose or stop the medication. Now has a DVT in her left femoral vein and 1 peroneal vein. Likely due to subtherapeutic INR this month. Status: Acute (7) DVT (deep venous thrombosis): Problem details: - Has h/o PE and DVT for which she has been on chronic anticoagulation with warfarin. She has not taken her medications, including warfarin for several days and her INR is now subtherapeutic, so I do not think she failed anticoagulation, rather she was noncompliant due to illness. - treat with Lovenox and resume warfarin. Status: Acute (8) Cognitive impairment: Problem details: Clearly has decline in mental status with this admission and acute illness. However [place] was 03/27/2023. Patient appears to be unable to reliably take her medications, especially prednisone and warfarin which are high risk. Status: Acute (9) Atrial fibrillation with rapid ventricular response: Problem details: - Suspect this was due to being off metoprolol for a few days. She has already converted to NSR after getting a dose of metoprolol in the ER. Continue metoprolol and anticoagulation. Status: Acute Time Spent With Patient Total time spent: Total time spent with the patient is 70 minutes, 50 minutes in coordination of care and discussing with patient and other providers management of adrenal crisis, sepsis, hypoglycemia Subjective Date Seen: 09/05/23 Interval history: 78-year-old female admitted to the hospital with a few days of profound weakness and confusion. Patient was diagnosed with the UTI with an abnormal urinalysis and dysuria starting 2 days prior to admission. Unclear if she had started antibiotic prior to admission. Patient is unable to give details of recent events but tells me for a few days she has been profoundly weak, possibly not able to get up out of bed or chair to get food, water or medicine. Possibly has not been taking any of her medications including warfarin and prednisone in the last couple days. She is not aware of a fever. Past history includes history of DVT and PE on warfarin, SLE and inflammatory arthritis on methotrexate prednisone and Plaquenil. She lives independently at [facility]. On admission she was tachypneic, tachycardic, hypotensive and quite confused. This was thought to be sepsis due to her E coli urinary infection. She was given fluids and ceftriaxone. She received prednisone 10 mg. September 04: This morning she was hypoglycemic. She is not diagnosed with diabetes or being treated with hypoglycemic agents. This was felt to be most likely due to acute adrenal crisis due to her not taking prednisone with her recent illness. She is quite tearful. She is asking to just stay in bed and sleep today because she is having profound fatigue, malaise. She also reports being quite sad and is tearful. Patient's blood sugar has responded to IV dextrose and IV Solu-Cortef. Blood pressure is borderline hypertensive. Other vital signs are normal Exam Narrative: Exam Narrative: She is alert, tearful. She gives her own history but is unable to give much detail about recent events from the past few days. He is unable to tell me about her medications. She reports feeling very tired and having pain all over. Head is without obvious trauma. Oropharynx is normal. Neck is supple without mass or adenopathy. Respirations are clear to auscultation. Cardiovascular: S1, S2, regular rate and rhythm. Abdomen: Bowel sounds active. Abdomen is soft without tenderness or mass. Extremities: Legs with bilateral warmth and erythema circumferentially around the calves. Venous stasis skin changes present. I believe this is a chronic condition for her. Unclear if it is worse. She reports pain more in the left than the right. Minimal tenderness with palpation over her left leg and foot. She has intact pedal pulses. Const: Vital Signs, click to edit/add: Vital Signs - 24 hr 09/04/23 18:17 09/04/23 19:13 09/04/23 19:15 Temperature 98.6 F Pulse Rate 111 H 110 H Pulse Rate [Right Pulse Oximeter] 105 H Pulse Rate [Right Radial] Respiratory Rate 22 Blood Pressure Blood Pressure [Le ft Arm] Blood Pressure [Ri ght Upper Arm] 147/89 H Pulse Oximetry 98 95 99 Oxygen Delivery Fl thod Room Air 09/04/23 19:30 09/04/23 19:32 09/04/23 20:02 Temperature Pulse Rate 135 H 139 H Pulse Rate [Right Pulse Oximeter] Pulse Rate [Right Radial] Respiratory Rate 18 Blood Pressure 155/82 H 155/79 H Blood Pressure [Le ft Arm] Blood Pressure [Ri ght Upper Arm] Pulse Oximetry 98 97 Oxygen Delivery [facility] Room Air Room Air 09/04/23 20:08 09/04/23 20:09 09/04/23 20:15 Temperature Pulse Rate 163 H 150 H 128 H Pulse Rate [Right Pulse Oximeter] Pulse Rate [Right Radial] Respiratory Rate Blood Pressure 136/83 121/102 H Blood Pressure [Le ft Arm] Blood Pressure [Ri ght Upper Arm] Pulse Oximetry 97 96 94 Oxygen Delivery [facility] Room Air Room Air 09/04/23 20:16 09/04/23 20:17 09/04/23 20:22 Temperature Pulse Rate 121 H 115 H Pulse Rate [Right Pulse Oximeter] Pulse Rate [Right Radial] Respiratory Rate Blood Pressure 128/113 H 126/81 Blood Pressure [Le ft Arm] Blood Pressure [Ri ght Upper Arm] Pulse Oximetry 95 95 Oxygen Delivery Me thod Room Air Room Air 09/04/23 20:27 09/04/23 20:31 09/04/23 20:34 Temperature Pulse Rate 136 H 135 H 129 H Pulse Rate [Right Pulse Oximeter] Pulse Rate [Right Radial] Respiratory Rate Blood Pressure 101/90 H Blood Pressure [Le ft Arm] Blood Pressure [Ri ght Upper Arm] Pulse Oximetry 90 94 94 Oxygen Delivery Me thod Room Air 09/04/23 20:37 09/04/23 20:49 09/04/23 20:50 Temperature Pulse Rate 129 H 133 H 133 H Pulse Rate [Right Pulse Oximeter] Pulse Rate [Right Radial] Respiratory Rate Blood Pressure 128/74 123/89 Blood Pressure [Le ft Arm] Blood Pressure [Ri ght Upper Arm] Pulse Oximetry 95 90 92 Oxygen Delivery Me thod Room Air Room Air 09/04/23 20:52 09/04/23 20:57 09/04/23 21:00 Temperature Pulse Rate 145 H 138 H 125 H Pulse Rate [Right Pulse Oximeter] Pulse Rate [Right Radial] Respiratory Rate Blood Pressure 110/76 124/86 Blood Pressure [Le ft Arm] Blood Pressure [Ri ght Upper Arm] Pulse Oximetry 94 92 94 Oxygen Delivery Me thod Room Air Room Air 09/04/23 21:02 09/04/23 21:07 09/04/23 21:11 Temperature 98.7 F Pulse Rate 137 H 130 H Pulse Rate [Right Pulse Oximeter] Pulse Rate [Right Radial] Respiratory Rate Blood Pressure 106/92 H 103/73 Blood Pressure [Le ft Arm] Blood Pressure [Ri ght Upper Arm] Pulse Oximetry 92 93 Oxygen Delivery Me thod Room Air Room Air 09/04/23 21:12 09/04/23 21:15 09/04/23 21:17 Temperature Pulse Rate 126 H 127 H 119 H Pulse Rate [Right Pulse Oximeter] Pulse Rate [Right Radial] Respiratory Rate Blood Pressure 95/78 102/65 Blood Pressure [Le ft Arm] Blood Pressure [Ri ght Upper Arm] Pulse Oximetry 94 91 90 Oxygen Delivery Me thod Room Air Room Air Room Air 09/04/23 21:22 09/04/23 21:27 09/04/23 23:33 Temperature Pulse Rate 123 H 123 H Pulse Rate [Right Pulse Oximeter] Pulse Rate [Right Radial] Respiratory Rate Blood Pressure 106/66 103/72 Blood Pressure [Le ft Arm] Blood Pressure [Ri ght Upper Arm] Pulse Oximetry 90 92 94 Oxygen Delivery Me thod Room Air Room Air 09/04/23 23:34 09/04/23 23:35 09/04/23 23:37 Temperature 97.8 F 97.8 F Pulse Rate 86 Pulse Rate [Right Pulse Oximeter] Pulse Rate [Right Radial] 86 86 Respiratory Rate 18 18 Blood Pressure Blood Pressure [Le ft Arm] 105/57 L 105/57 L Blood Pressure [Ri ght Upper Arm] Pulse Oximetry 94 94 Oxygen Delivery Fl thod Room Air Room Air 09/04/23 23:47 09/04/23 23:55 09/05/23 02:25 Temperature 97.8 F 97.6 F Pulse Rate Pulse Rate [Right Pulse Oximeter] Pulse Rate [Right Radial] 66 Respiratory Rate 18 16 Blood Pressure Blood Pressure [Le ft Arm] 127/60 Blood Pressure [Ri ght Upper Arm] Pulse Oximetry 94 100 Oxygen Delivery [facility] Room Air Room Air 09/05/23 02:46 09/05/23 05:55 09/05/23 06:20 Temperature 97.6 F 97.6 F Pulse Rate Pulse Rate [Right Pulse Oximeter] Pulse Rate [Right Radial] 66 Respiratory Rate 16 Blood Pressure Blood Pressure [Le ft Arm] Blood Pressure [Ri ght Upper Arm] Pulse Oximetry Oxygen Delivery Me thod 09/05/23 07:00 09/05/23 07:00 09/05/23 07:00 Temperature 97.4 F L Pulse Rate Pulse Rate [Right Pulse Oximeter] Pulse Rate [Right Radial] 74 74 Respiratory Rate 15 15 15 Blood Pressure Blood Pressure [Le ft Arm] 149/66 H Blood Pressure [Ri ght Upper Arm] Pulse Oximetry 98 98 Oxygen Delivery Me thod Room Air Room Air 09/05/23 07:44 09/05/23 11:00 Temperature 97.5 F L Pulse Rate 61 Pulse Rate [Right Pulse Oximeter] Pulse Rate [Right Radial] 69 Respiratory Rate 18 Blood Pressure Blood Pressure [Le ft Arm] 149/69 H Blood Pressure [Ri ght Upper Arm] Pulse Oximetry 97 Oxygen Delivery Me thod Room Air Documenting provider has reviewed patient's vital signs: yes Labs Labs: Laboratory Results - last 24 hr 09/04/23 09/04/23 09/04/23 19:00 19:00 20:32 WBC 10.77 RBC 4.34 Hgb 11.8 L Hct 38.7 MCV 89 MCH 27 MCHC 31 L RDW Coeff of Rolo 14.5 Plt Count 404 Neut % (Auto) 77.1 H Lymph % (Auto) 10.3 L [place] % (Auto) 10.3 Eos % (Auto) 1.3 Baso % (Auto) 0.8 Neut # (Auto) 8.30 H Lymph # (Auto) 1.10 [place] # (Auto) 1.10 H Eos # (Auto) 0.14 Baso # (Auto) 0.09 Abs Immat Gran (auto) 0.02 Imm/Tot Granulo (auto) 0.2 INR 1.90 H Sodium 138 Potassium 3.6 Chloride 106 Carbon Dioxide 20 Anion Gap 12 BUN 18 Creatinine 0.7 Estimated Creat Clear 44.98 Estimated GFR 87 Glucose 55 L Lactate 1.4 Calcium 8.9 Total Bilirubin 0.6 AST 30 ALT 14 Alkaline Phosphatase 91 Total Creatine Kinase 61 Troponin I 0.10 H* 0.11 H* Total Protein 6.6 Albumin 3.7 Procalcitonin 0.15 Urine Color Dark yellow Urine Appearance Cloudy A Urine pH 6.0 Ur Specific [place] >= 1.030 Urine Protein 2+ A Urine Glucose (UA) Negative Urine Ketones 3+ A Urine Blood 2+ A Urine Nitrite Positive A Urine Bilirubin Negative Urine Urobilinogen 0.2 Ur Leukocyte Esterase 1+ A Urine RBC 0-2 Urine WBC 10-25 A Ur Squamous Epith Cells Few Urine Bacteria Many A Lab Acknowledgement Test Added Test Added 09/04/23 09/05/23 20:56 06:30 WBC 8.20 RBC 4.33 Hgb 11.8 L Hct 39.3 MCV 91 MCH 27 MCHC 30 L RDW Coeff of Rolo 14.8 Plt Count 384 Neut % (Auto) 90.1 H Lymph % (Auto) 7.2 L [place] % (Auto) 2.0 Eos % (Auto) 0.1 Baso % (Auto) 0.4 Neut # (Auto) 7.40 H Lymph # (Auto) 0.60 L [place] # (Auto) 0.20 Eos # (Auto) 0.01 Baso # (Auto) 0.03 Abs Immat Gran (auto) 0.02 Imm/Tot Granulo (auto) 0.2 INR Sodium 140 Potassium 4.0 Chloride 109 Carbon Dioxide 19 L Anion Gap 12 BUN 19 Creatinine 0.7 Estimated Creat Clear 43.05 Estimated GFR 87 Glucose 49 L* Lactate Calcium 8.4 Total Bilirubin AST ALT Alkaline Phosphatase Total Creatine Kinase Troponin I 0.10 H* Total Protein Albumin Procalcitonin 0.17 Urine Color Urine Appearance Urine pH Ur Specific [place] Urine Protein Urine Glucose (UA) Urine Ketones Urine Blood Urine Nitrite Urine Bilirubin Urine Urobilinogen Ur Leukocyte Esterase Urine RBC Urine WBC Ur Squamous Epith Cells Urine Bacteria Lab Acknowledgement Test Added
[2023-09-05] MEDS: HYDROXYCHLOROQUINE 200 MG TABLET PO (14:37)
[2023-09-05] MEDS: HYDROCORTISONE SOD SUCCINATE 50 MG/ML inj IVP ×2 (15:57→23:47)
[2023-09-05] MEDS: WARFARIN 2 MG TABLET PO (17:04)
--- NOTE | 2023-09-05 18:27 | PC.NURSE ---
[id number] Note (): At beginning of shift, patient had severe hypoglycemia (blood sugar 40s) and was very lethargic and fatigued. Per MD order, D5 given via IVP as well as Solu-Cortef due to adrenal crisis. Per daughter, patient has not taking any medications for RA for the last 2 days. Patient was very lethargic throughout morning and slept; patient was very teary-eyed during wakeful periods and complained of discomfort. This afternoon, patient become much more alert and requested to ambulate to chair. Patient pivoted to chair with Ax2-3 and ate some food. Appetite continues to be poor but is improved from this morning. Patient is A&OX3 at this time. Patient's vital signs have been stable throughout shift. Peripheral IV in R) AC infiltrated; new IV obtained in L) hand. Patient has D5 in LR infusing @ 75 mL/hr at this time. Patient receiving IV Solu-Cortef scheduled. Patient had 2 bowel movements this shift. Colindres catheter in place and patent; urine straw-colored and cloudy with sediments present. Patient needs encouragement to drink and eat. Generalized edema noted, especially to bilateral upper extremities and bilateral lower extremities; all extremities elevated at this time. Skin intact. Discharge plan pending at this time. Will continue to implement ongoing plan of care.
[2023-09-05] MEDS: 5 % DEXTROSE IN LAC RINGER'S 1,000 ML 75 ML IV (19:51)
[2023-09-05] MEDS: cefTRIAXone 1 GM in 0.9 % SODIUM CHLORIDE Mini-bag 100 ML IVPB (19:51)
[2023-09-05] MEDS: SODIUM CHLORIDE 0.9 % (FLUSH) 10 ML SYRINGE 5 ML IVF (20:36)
[2023-09-06] VITALS (8 sets, daily range): BP systolic 124–156; BP diastolic 62–81; PULSE 73–103; RESP 16–18; TEMP 36.7–37.4; O2SAT 95–99
--- NOTE | 2023-09-06 05:00 | PC.NURSE ---
Pt pleasant and cooperative. States she is feeling much better. Oriented. VSS. Tele NSR w BBB.
[2023-09-06 06:00] LABS: Hematocrit 34.4 % (33.0-51.0); Hemoglobin* 10.7 gm/dL (12.0-16.0); Immature Granulocytes Abs Auto 0.03 K/uL (0.00-0.30); Immature Granulocytes Pct Auto 0.3 %; Lymphocytes Percent Auto 6.5 % (20-44); Mean Corpuscular HGB Conc 31 gm/dL (32-36); Mean Corpuscular Hemoglobin 27 pg (26-34); Mean Corpuscular Volume 88 fL (80-100); Monocytes Percent Auto 4.3 % (0.0-11.0); Neutrophils Percent Auto 88.9 % (42.0-72.0); Platelet Count* 351 K/uL (140-440); RDW Coefficient of Variation % 14.7 % (11.5-15.5); White Blood Count* 9.82 K/uL (4.50-11.00)
[2023-09-06] MEDS: LEVOTHYROXINE 25 MCG TABLET PO (06:03)
[2023-09-06] MEDS: OMEPRAZOLE 20 MG CAPSULE DR PO (06:03)
[2023-09-06 06:04] LABS: Slide Review Reflex No
[2023-09-06 06:14] LABS: Chloride* 114 mmol/L (96-114); Potassium* 4.1 mmol/L (3.6-5.1); Sodium* 140 mmol/L (135-149)
[2023-09-06 06:17] LABS: Anion Gap 3 mEq/L (7-15); Blood Urea Nitrogen* 18 mg/dL (7-30); Carbon Dioxide* 23 mmol/L (20-32); Creatinine* 0.6 mg/dL (0.5-1.5); Est. Creatinine Clearance* 45.01; Estimated Glomerular Filt Rate 91 ml/min; Prothrombin Time 41.3 Seconds
[2023-09-06 06:18] LABS: Calcium* 8.5 mg/dL (8.4-10.6); Glucose* 130 mg/dL (60-115); Magnesium* 2.1 mg/dL (1.5-2.6)
[2023-09-06 06:30] LABS: Troponin I* 0.05 ng/mL (0.01-0.04)
[2023-09-06 06:45] LABS: C Reactive Protein* 15.1 mg/dL (0.5-1.0)
[2023-09-06 06:49] LABS: Thyroid Stimulating Hormone* 0.584 uIU/mL (0.270-4.20)
[2023-09-06] MEDS: HYDROCORTISONE SOD SUCCINATE 50 MG/ML inj IVP (07:43)
[2023-09-06] MEDS: METOPROLOL SUCCINATE (XL) 25 MG TAB PO (08:58)
[2023-09-06] MEDS: LOSARTAN POTASSIUM 50 MG TABLET 25 MG PO (08:58)
[2023-09-06] MEDS: POTASSIUM CHLORIDE 10 MEQ CAPSULE ER 20 MEQ PO ×2 (08:58→20:32)
[2023-09-06] MEDS: buPROPion XL 150 MG TABLET PO (08:58)
[2023-09-06] MEDS: GABAPENTIN 600 MG TABLET 1200 MG PO ×2 (08:59→20:32)
[2023-09-06] MEDS: LORATADINE 10 MG TABLET PO (08:59)
[2023-09-06] MEDS: SODIUM CHLORIDE 0.9 % (FLUSH) 10 ML SYRINGE 5 ML IVF ×2 (09:00→20:33)
--- NOTE | 2023-09-06 10:11 | PM.IMPN1 ---
Progress Note: A&P Assessment and plan (1) Acute adrenal crisis: Problem details: Likely caused because she stopped her prednisone when she felt ill. She may have also missed some doses because she was waiting for a refill of prednisone. This is likely the cause of most of her constitutional symptoms and hypoglycemia. IV hydrocortisone, fluids, dextrose. Caution with fluids due to history of heart failure. Status: Acute (2) Severe sepsis: Problem details: - Immunosupressed due to chronic prednisone and methotrexate - Met criteria for severe sepsis secondary to pansensitive Ecoli UTI based on elevated heart rate, elevated respiratory rate, SBP less than 90. No other apparent source of infection. Bilateral leg edema and left leg pain is more likely chronic venous stasis than cellulitis. Transfer to med surg status from CCU on September 05. Status: Acute (3) Immunosuppression: Problem details: On chronic prednisone and methotrexate for inflammatory arthritis. Status: Acute (4) Urinary tract infection: Problem details: Pansensitive E coli on culture from 09/03/2023 Status: Acute (5) Heart failure: Problem details: History of heart failure with dilated cardiomyopathy. Caution with fluid resuscitation. Status: Acute (6) Subtherapeutic international normalized ratio (INR): Problem details: History of PE and DVT. On chronic warfarin. Patient had INR of 1.1 on August 10 and August 16 for unknown reasons. She is unable to tell me if she forgot her medications or was instructed change the dose or stop the medication. Now has a DVT in her left femoral vein and 1 peroneal vein. Likely due to subtherapeutic INR earlier this month. Status: Acute (7) DVT (deep venous thrombosis): Problem details: - Has h/o PE and DVT for which she has been on chronic anticoagulation with warfarin. She has not taken her medications, including warfarin for several days and her INR is now subtherapeutic, so I do not think she failed anticoagulation, rather she was noncompliant due to illness. - treat with Lovenox and resume warfarin. Status: Acute (8) Cognitive impairment: Problem details: Clearly has decline in mental status with this admission and acute illness. Clinically she has marked improvement in mental status in the last 24 hours. Hadley was 1530 03/27/2023. Recheck. Patient appears to be unable to reliably take her medications, especially prednisone and warfarin which are high risk medications. Status: Acute (9) Atrial fibrillation with rapid ventricular response: Problem details: - Suspect this was due to being off metoprolol for a few days. She has already converted to NSR after getting a dose of metoprolol in the ER. Continue metoprolol and anticoagulation. Status: Acute (10) Frailty syndrome in geriatric patient: Problem details: Patient is quite frail due to multiple chronic medical problems. PT and OT to assess functional status. Discussed with patient and family increasing assistance at home Status: Chronic (11) Chronic pain: Problem details: On chronic Hart Status: Acute Plan Continue in hospital for management of acute adrenal insufficiency, sepsis from UTI and other chronic medical problems. Therapy and social media content manager to evaluate for increased services or higher level of care. Time Spent With Patient Total time spent: Total time spent today is 55 minutes, 40 minutes in coordination of care and discussing with patient, daughter and other providers management of sepsis, medications, adrenal insufficiency, disposition Subjective Date Seen: 09/06/23 Interval history: 78-year-old female admitted to the hospital with a few days of profound weakness and confusion. Patient was diagnosed with the UTI with an abnormal urinalysis and dysuria starting 2 days prior to admission. Unclear if she had started antibiotic prior to admission. Patient is unable to give details of recent events but tells me for a few days she has been profoundly weak, possibly not able to get up out of bed or chair to get food, water or medicine. Possibly has not been taking any of her medications including warfarin and prednisone in the last couple days. She is not aware of a fever. Past history includes history of DVT and PE on warfarin, SLE and inflammatory arthritis on methotrexate prednisone and Plaquenil. She lives independently at [facility]. On admission she was tachypneic, tachycardic, hypotensive and quite confused. This was thought to be sepsis due to her E coli urinary infection. She was given fluids and ceftriaxone. She received prednisone 10 mg. September 04: This morning she was hypoglycemic. She is not diagnosed with diabetes or being treated with hypoglycemic agents. This was felt to be most likely due to acute adrenal crisis due to her not taking prednisone with her recent illness. She is quite tearful. She is asking to just stay in bed and sleep today because she is having profound fatigue, malaise. She also reports being quite sad and is tearful. Patient's blood sugar has responded to IV dextrose and IV Solu-Cortef. Blood pressure is borderline hypertensive. Other vital signs are normal September 05: Later yesterday patient had marked improvement in her mental status, mood, energy, level of alertness. She is able to get up in a chair and to eat. Today she reports continuing to feel much better and much stronger. She is able to carry on a conversation without difficulty. She is oriented to her circumstances. She reports no new concerns today. Overnight nurses report no significant problems. Normal vitals. She remains unable to give me much information about the events leading up to this hospitalization Exam Narrative: Exam Narrative: She is alert and in no distress. She is oriented to her circumstances. Respirations are clear to auscultation. Cardiovascular: S1, S2, regular rate and rhythm. Abdomen: Bowel sounds active. Abdomen is soft without tenderness or mass. Lower extremities with bilateral erythema and venous stasis skin changes in both legs. This is not significantly changed from yesterday. She is not tender in her left leg and foot as she was yesterday however. Const: Vital Signs, click to edit/add: Vital Signs - 24 hr 09/05/23 11:00 09/05/23 15:00 09/05/23 15:00 Temperature 97.5 F L Pulse Rate Pulse Rate [Pulse Oximeter] Pulse Rate [Right Radial] 69 73 Respiratory Rate 18 18 18 Blood Pressure [Le ft Arm] 149/69 H Pulse Oximetry 97 [facility] 09/05/23 15:00 09/05/23 15:00 09/05/23 19:00 Temperature 98.8 F 98.3 F Pulse Rate 69 Pulse Rate [Pulse Oximeter] Pulse Rate [Right Radial] 73 79 Respiratory Rate 18 18 Blood Pressure [Le ft Arm] 148/64 H 116/54 L Pulse Oximetry 96 96 [facility] 09/05/23 19:57 09/05/23 20:36 09/05/23 22:12 Temperature 98.3 F 98.5 F Pulse Rate 80 Pulse Rate [Pulse Oximeter] Pulse Rate [Right Radial] 76 Respiratory Rate 16 Blood Pressure [Le ft Arm] 107/52 L Pulse Oximetry 94 [facility] 09/05/23 22:14 09/05/23 22:15 09/05/23 22:16 Temperature Pulse Rate Pulse Rate [Pulse Oximeter] Pulse Rate [Right Radial] Respiratory Rate 16 16 Blood Pressure [Le ft Arm] Pulse Oximetry 94 94 Oxygen Delivery Me thod Room Air 09/06/23 02:36 09/06/23 07:00 09/06/23 07:00 Temperature 98.9 F 98.5 F Pulse Rate 83 Pulse Rate [Pulse Oximeter] 88 Pulse Rate [Right Radial] 73 Respiratory Rate 16 18 Blood Pressure [Le ft Arm] 131/65 134/62 Pulse Oximetry 95 95 Oxygen Delivery Me thod Room Air Room Air 09/06/23 07:00 09/06/23 07:00 Temperature Pulse Rate Pulse Rate [Pulse Oximeter] 88 Pulse Rate [Right Radial] Respiratory Rate 18 18 Blood Pressure [Le ft Arm] Pulse Oximetry 95 Oxygen Delivery Me thod Room Air Documenting provider has reviewed patient's vital signs: yes Labs Labs: Laboratory Results - last 24 hr 09/06/23 05:47 WBC 9.82 RBC 3.90 L Hgb 10.7 L Hct 34.4 MCV 88 MCH 27 MCHC 31 L RDW Coeff of Rolo 14.7 Plt Count 351 Neut % (Auto) 88.9 H Lymph % (Auto) 6.5 L [place] % (Auto) 4.3 Eos % (Auto) 0.0 Baso % (Auto) 0.0 Neut # (Auto) 8.70 H Lymph # (Auto) 0.60 L [place] # (Auto) 0.40 Eos # (Auto) 0.00 Baso # (Auto) 0.00 Abs Immat Gran (auto) 0.03 Imm/Tot Granulo (auto) 0.3 INR 3.90 H Sodium 140 Potassium 4.1 Chloride 114 Carbon Dioxide 23 Anion Gap 3 L BUN 18 Creatinine 0.6 Estimated Creat Clear 45.01 Estimated GFR 91 Glucose 130 H Calcium 8.5 Magnesium 2.1 Troponin I 0.05 H C-Reactive Protein 15.1 H TSH 0.584
[2023-09-06] MEDS: HYDROXYCHLOROQUINE 200 MG TABLET PO (12:18)
[2023-09-06] MEDS: MAGNESIUM OXIDE 400 MG TABLET PO (12:18)
--- NOTE | 2023-09-06 13:46 | PC.SOCIAL ---
Discharge planning- Per MD, pt may be ready for discharge within 1 to 2 days, pending patient progress. Phone call to pt's daughter, Giselle, to discuss discharge plans. Giselle informs that pt is living at [facility] and is independent. Giselle states that staff and pt's daughter have been trying to get pt to move to the assisted living side ([facility]) to receive more services, but pt is hesitant. Patient currently receives services for bathing 1 time a week and assistance with stockings in the AM and PM. Pt is independent with all other cares and independent with medication management. Giselle gives this worker permission to reach out to Omaira ([facility] Nurse) to provide an update. Met with pt and discussed discharge plans. Pt is open to rehab, if recommended by therapy. Informed pt that this worker will be sending progress notes to the nurse at [facility]. Pt agrees that is a good idea. Secure e-mail to Omaira Quick ([facility] Nurse) to provide update. Provided therapy and progress note. Omaira responds and informs that she will come to [facility] either later today or tomorrow to assess pt as she believes pt will need an increase in services. Provided update to charge nurse. Social work will follow up as needed.
[2023-09-06] MEDS: predniSONE 20 MG TABLET PO (17:57)
--- NOTE | 2023-09-06 18:24 | PC.NURSE ---
End of shift: Patient pleasant and cooperative, A&O. VSS, afebrile. SpO2 maintained above 90% on RA. Patient reports no pain during this shift. Colindres catheter in place and patent. Ambulated with PT/OT. Got up to bathroom with 1 Assist, walker, and gait belt, tolerated well. ?
[2023-09-06] MEDS: cefTRIAXone 1 GM in 0.9 % SODIUM CHLORIDE Mini-bag 100 ML IVPB (20:32)
[2023-09-07 03:00] VITALS: PULSE 98; RESP 18; O2SAT 93
[2023-09-07] MEDS: LEVOTHYROXINE 25 MCG TABLET PO (06:06)
[2023-09-07] MEDS: OMEPRAZOLE 20 MG CAPSULE DR PO (06:06)
[2023-09-07 06:38] LABS: Basophils Absolute Auto 0.01 K/uL (0.00-0.30); Basophils Percent Auto 0.1 % (0.0-3.0); Hematocrit 34.2 % (33.0-51.0); Hemoglobin* 10.3 gm/dL (12.0-16.0); Immature Granulocytes Abs Auto 0.02 K/uL (0.00-0.30); Immature Granulocytes Pct Auto 0.3 %; Mean Corpuscular HGB Conc 30 gm/dL (32-36); Mean Corpuscular Hemoglobin 27 pg (26-34); Mean Corpuscular Volume 91 fL (80-100); Monocytes Percent Auto 3.7 % (0.0-11.0); Neutrophils Percent Auto 88.9 % (42.0-72.0); Platelet Count* 356 K/uL (140-440); RDW Coefficient of Variation % 15.1 % (11.5-15.5); Red Blood Count 3.78 m/uL (4.00-5.20); White Blood Count* 7.29 K/uL (4.50-11.00)
--- NOTE | 2023-09-07 06:38 | PC.NURSE ---
: Pleasant and cooperative. SBA with walker. Pt reports feeling much better than when she came in. No c/o pain. Afebrile. ?
[2023-09-07 06:46] LABS: Chloride* 115 mmol/L (96-114); Potassium* 4.5 mmol/L (3.6-5.1); Sodium* 144 mmol/L (135-149)
[2023-09-07 06:49] LABS: Creatinine* 0.8 mg/dL (0.5-1.5); Est. Creatinine Clearance* 43.82; Estimated Glomerular Filt Rate 74 ml/min; Slide Review Reflex No
[2023-09-07 06:50] LABS: Anion Gap 4 mEq/L (7-15); Blood Urea Nitrogen* 22 mg/dL (7-30); Calcium* 8.4 mg/dL (8.4-10.6); Carbon Dioxide* 25 mmol/L (20-32); Glucose* 125 mg/dL (60-115)
[2023-09-07 06:53] LABS: C Reactive Protein* 5.6 mg/dL (0.5-1.0)
[2023-09-07 07:00] VITALS: BP 139/68; PULSE 69; PULSE 72; RESP 18; TEMP 36.6; O2SAT 96
[2023-09-07 07:03] LABS: Prothrombin Time 32.6 Seconds
[2023-09-07] MEDS: predniSONE 20 MG TABLET PO (07:55)
[2023-09-07 08:10] VITALS: PULSE 92
[2023-09-07] MEDS: LOSARTAN POTASSIUM 50 MG TABLET 25 MG PO (08:54)
[2023-09-07] MEDS: LORATADINE 10 MG TABLET PO (08:54)
[2023-09-07] MEDS: buPROPion XL 150 MG TABLET PO (08:54)
[2023-09-07] MEDS: METOPROLOL SUCCINATE (XL) 25 MG TAB PO (08:55)
[2023-09-07] MEDS: GABAPENTIN 600 MG TABLET 1200 MG PO (08:55)
[2023-09-07] MEDS: POTASSIUM CHLORIDE 10 MEQ CAPSULE ER 20 MEQ PO (08:55)
[2023-09-07] MEDS: SODIUM CHLORIDE 0.9 % (FLUSH) 10 ML SYRINGE 5 ML IVF (08:55)
[2023-09-07 11:00] VITALS: BP 157/86; PULSE 96; RESP 18; TEMP 37.2; O2SAT 96
[2023-09-07] MEDS: HYDROXYCHLOROQUINE 200 MG TABLET PO (11:49)
[2023-09-07] MEDS: MAGNESIUM OXIDE 400 MG TABLET PO (11:49)
--- NOTE | 2023-09-07 12:04 | P.DS_ITS ---
DS: Providers Provider Date Seen: 09/07/23 Date of admission: 09/04/23 23:05 Primary care physician: Prakash Moore MD Admitting Clinician: Liliana Talavera MD Attending Physician on discharge: Bola Garcia MD Date of Discharge: 09/07/23 DS: Diagnosis Discharge Diagnosis (1) Urinary tract infection: Status: Acute Problem details: Pansensitive E coli on culture from 09/03/2023. Ceftriaxone followed by [facility] (2) DVT (deep venous thrombosis): Status: Acute Problem details: Patient has a DVT. She has been on warfarin but had an INR of 1.1 on August 10 and August 16. It is unclear why she had this prolonged period of subtherapeutic INR but this is likely the cause of her developing another DVT. (3) Atrial fibrillation with rapid ventricular response: Status: Acute Problem details: - Suspect this was due to being off metoprolol for a few days. She has already converted to NSR after getting a dose of metoprolol in the ER. Continue metoprolol and anticoagulation. (4) Acute adrenal crisis: Status: Acute Problem details: Likely caused because she stopped her prednisone when she felt ill. She may have also missed some doses because she was waiting for a refill of prednisone. This is likely the cause of most of her constitutional symptoms and hypoglycemi a. She rapidly returned back to normal with IV steroids and fluids and glucose. I recommend stress dose steroids for acute illness as an outpatient, double or triple her daily prednisone dose for 3 days with acute illness. (5) Severe sepsis: Status: Acute Problem details: - Immunosupressed due to chronic prednisone and methotrexate - Met criteria for severe sepsis secondary to pansensitive Ecoli UTI based on elevated heart rate, elevated respiratory rate, SBP less than 90, elevated troponin, altered mental status. Sepsis signs and symptoms resolved with treatment of UTI and adrenal crisis (6) Elevated troponin: Status: Acute Problem details: Mild troponin elevation with her acute illness. No other evidence of acute coronary syndrome (7) Anticoagulation goal of INR 2 to 3: Status: Acute Problem details: INR has been difficult to control recently. Close outpatient monitoring. Consider switching to direct acting oral anticoagulant. On lifelong anticoagulation for DVT/PE/AFib. 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 She may need rehab due to weakness and inability to transfer independently. (11) Frailty syndrome in geriatric patient: Status: Chronic Problem details: Patient is quite frail due to multiple chronic medical problems. PT and OT to assess functional status. Discussed with patient and family increasing assistance at home (12) Cognitive impairment: Status: Acute Problem details: Clearly has decline in mental status with this admission and acute illness. Clinically she has marked improvement in mental status in the last 24 hours. Stark was 15/30 03/27/2023. Stark score of 24/30 on September 06 2023. Patient seems mostly capable of managing her medications and other issues as long as she is feeling well. With this recent illness however she was unable to manage her medications contributing to her acute adrenal crisis and AFib with RVR. DS: Summary Status at Discharge Cognitive/behavioral status at discharge: 78-year-old female admitted to the hospital with a few days of profound weakness and confusion. Patient was diagnosed with the UTI with an abnormal urinalysis and dysuria starting 2 days prior to admission. Unclear if she had started antibiotic prior to admission. Patient is unable to give details of recent events but tells me for a few days she has been profoundly weak, possibly not able to get up out of bed or chair to get food, water or medicine. Possibly has not been taking any of her medications including warfarin and prednisone in the last couple days. She is not aware of a fever. Past history includes history of DVT and PE on warfarin, SLE and inflammatory arthritis on methotrexate prednisone and Plaquenil. She lives independently at [facility]. On admission she was tachypneic, tachycardic, hypotensive and quite confused. This was thought to be sepsis due to her E coli urinary infection. She was given fluids and ceftriaxone. She received prednisone 10 mg. September 04: This morning she was hypoglycemic. She is not diagnosed with diabetes or being treated with hypoglycemic agents. This was felt to be most likely due to acute adrenal crisis due to her not taking prednisone with her recent illness. She is quite tearful. She is asking to just stay in bed and sleep today because she is having profound fatigue, malaise. She also reports being quite sad and is tearful. Patient's blood sugar has responded to IV dextrose and IV Solu-Cortef. Blood pressure is borderline hypertensive. Other vital signs are normal September 05: Later yesterday patient had marked improvement in her mental status , mood, energy, level of alertness. She is able to get up in a chair and to eat. Today she reports continuing to feel much better and much stronger. She is able to carry on a conversation without difficulty. She is oriented to her circumstances. She reports no new concerns today. Overnight nurses report no significant problems. Normal vitals. She remains unable to give me much information about the events leading up to this hospitalization. September 06: Patient and OT and PT all feel she is close to baseline with mobility and transfers. Signs and symptoms of adrenal crisis and sepsis have entirely resolved. She has no new concerns today. She is agreeable to having her daughter set up her medications as an outpatient. Functional status at discharge: uses cane/walker Overall status at discharge: patient is progressing back to baseline Time Spent with Patient Time attestation: Total time spent providing and/or coordinating discharge services: 45 mins Time spent: Greater than 30 minutes Exam Narrative: Exam Narrative: She is alert and appears in no distress. She is oriented to her circumstances. Respirations are clear to auscultation. Cardiovascular: S1, S2, regular rate and rhythm. Abdomen is soft without tenderness. Extremities with support hose in place. Const: Vital Signs, click to edit/add: Vital Signs - 24 hr 09/06/23 15:00 09/06/23 15:00 09/06/23 15:00 Temperature 98.3 F Pulse Rate Pulse Rate [Pulse Oximeter] 99 99 Respiratory Rate 16 16 16 Blood Pressure [Le ft Arm] 124/68 Pulse Oximetry 99 99 Oxygen Delivery Me thod Room Air Room Air 09/06/23 15:00 09/06/23 20:15 09/06/23 21:40 Temperature 98.1 F Pulse Rate 103 H Pulse Rate [Pulse Oximeter] 80 Respiratory Rate 16 16 Blood Pressure [Le ft Arm] 129/71 Pulse Oximetry 97 97 Oxygen Delivery Me thod Room Air Room Air 09/06/23 22:37 09/06/23 23:00 09/06/23 23:00 Temperature 99.4 F Pulse Rate 100 Pulse Rate [Pulse Oximeter] 80 85 Respiratory Rate 16 18 Blood Pressure [Le ft Arm] 156/81 H Pulse Oximetry 95 Oxygen Delivery Me thod Room Air 09/06/23 23:00 09/07/23 03:00 09/07/23 07:00 Temperature 97.8 F Pulse Rate Pulse Rate [Pulse Oximeter] 98 72 Respiratory Rate 18 18 Blood Pressure [Le ft Arm] 139/68 Pulse Oximetry 95 93 96 Oxygen Delivery Me thod Room Air Room Air 09/07/23 07:00 09/07/23 07:00 09/07/23 08:10 Temperature Pulse Rate 92 Pulse Rate [Pulse Oximeter] 69 Respiratory Rate 18 18 Blood Pressure [Le ft Arm] Pulse Oximetry 96 Oxygen Delivery Me thod Room Air 09/07/23 11:00 Temperature 98.9 F Pulse Rate Pulse Rate [Pulse Oximeter] 96 Respiratory Rate 18 Blood Pressure [Le ft Arm] 157/86 H Pulse Oximetry 96 Oxygen Delivery Me thod Room Air Documenting provider has reviewed patient's vital signs: yes DS: Data Data Completed and Pending Completed studies during hospitalization: Procedures Inspection of Upper Intestinal Tract, Via Natural or Artificial Opening Endoscopic (03/23/23) Introduction of Other Gas into Respiratory Tract, Via Natural or Artificial Opening (03/23/23) Christianity of Cardiac Rhythm, Single (03/23/23) Transfusion of Nonautologous Red Blood Cells into Peripheral Vein, Percutaneous Approach (03/23/23) Labs on day of discharge: Labs from last 24 hours 09/07/23 06:00 WBC 7.29 RBC 3.78 L Hgb 10.3 L Hct 34.2 MCV 91 MCH 27 MCHC 30 L RDW Coeff of Rolo 15.1 Plt Count 356 Neut % (Auto) 88.9 H Lymph % (Auto) 7.0 L [place] % (Auto) 3.7 Eos % (Auto) 0.0 Baso % (Auto) 0.1 Neut # (Auto) 6.50 Lymph # (Auto) 0.50 L [place] # (Auto) 0.30 Eos # (Auto) 0.00 Baso # (Auto) 0.01 Abs Immat Gran (auto) 0.02 Imm/Tot Granulo (auto) 0.3 INR 2.90 H Sodium 144 Potassium 4.5 Chloride 115 H Carbon Dioxide 25 Anion Gap 4 L BUN 22 Creatinine 0.8 Estimated Creat Clear 43.82 Estimated GFR 74 Glucose 125 H Calcium 8.4 C-Reactive Protein 5.6 H Preliminary micro results at discharge 09/04/23 20:32 Blood Culture - Preliminary Blood NO GROWTH AFTER 48 HOURS 09/04/23 19:00 Blood Culture - Preliminary Blood NO GROWTH AFTER 48 HOURS Imaging Venous US: Radiologist's impression: INDICATION: Femoral vein DVT on CT. TECHNIQUE: Ultrasound venous duplex lower left extremity. Compression venous exam was p erformed using kirby-scale, color Doppler, and spectral Doppler analysis. COMPARISON: CT 09/04/2023. FINDINGS: Deep veins: There is a focal nonocclusive thrombus involving the left femoral vein at the level of the proximal thigh, which corresponds to the filling defect seen on CT. Additionally, there is a filling defect involving 1 of the paired peroneal veins at the level of the calf. Otherwise, no filling defects identified within the remaining portions of the left femoral vein, common femoral vein, profunda femoris vein, popliteal vein, posterior tibial veins or the 2nd peroneal vein. Contralateral right common femoral vein is patent. Superficial veins: Visualized portion of the greater saphenous vein is fully compressible. No popliteal cyst. IMPRESSION: 1. Focal nonocclusive thrombus involving the left femoral vein at the level of the proximal thigh, corresponding with the abnormality seen on CT. 2. Additional deep venous thrombosis involving 1 of the paired peroneal veins at the calf. CT scan - abdomen: Radiologist's impression: INDICATION: Diffuse abdominal pain. Known urinary tract infection. COMPARISON: 06/05/2023 TECHNIQUE: CT of the abdomen and pelvis with 71 cc of Isovue 370 intravenous contrast. Please note that all CT scans at this facility use dose modulation, iterative reconstruction, and/or weight-based dosing when appropriate to reduce radiation dose to as low as reasonably achievable. FINDINGS: ABDOMEN Liver: Normal hepatic attenuation. No suspicious focal hepatic lesion. Unchanged mild intrahepatic biliary ductal dilatation. Patent portal and hepatic veins. Gallbladder: Cholecystectomy. Normal common duct caliber. Pancreas: Normal pancreatic attenuation. No focal lesion. Normal duct caliber. No peripancreatic inflammatory changes. Spleen: Normal splenic attenuation. No suspicious focal lesion. Patent splenic artery and vein. Adrenal Glands: Symmetrical adrenal glands. No focal lesion of significance. Kidneys: Normal bilateral renal attenuation. No suspicious focal lesion. No obstructing nephrolith or dilatation of the intrarenal collecting systems. Paten t renal arteries and veins. Nondilated upper urinary tracts. Gastrointestinal tract: Normal caliber, attenuation and wall thickness of the gastrointestinal tract. No inflammatory changes. Normal mesentery. Normal appendix. Vascular: Nonocclusive proximal left superficial femoral vein DVT (series 2; images 115-121). Severe aortoiliac atherosclerotic mural calcification. Abdominal aorta and its major proximal branches including the celiac, superior mesenteric, inferior mesenteric, renal, and bilateral common iliac arteries are patent. Inferior vena cava, portal and superior mesenteric veins are patent. Additional findings: No incidental adenopathy. No significant ascites, free fluid or pneumoperitoneum. PELVIS Streak artifact associated with a right hip arthroplasty limits interpretation. Catheterized bladder. The Colindres catheter tents the escalera of the bladder where it abuts the bladder wall but is contained within the bladder lumen. Hysterectomy. No abnormal free fluid. No incidental adenopathy. 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 Advanced left hip osteoarthrosis with flattening of the femoral head and obliteration of the joint space. Left hip effusion. L3-L5 poste rior interbody lumbar fusion and discectomy. Intervertebral disc spacing devices are present at the anterior margin of the intervertebral disc spaces at the instrumented levels. LOWER THORAX Findings consistent with round atelectasis in the left lower lobe are unchanged. Partially included lower thoracic wall, lungs, pleural spaces and mediastinum are otherwise without significant incidental findings. IMPRESSION: 1. Nonocclusive DVT of the left proximal superficial femoral vein, new in the interval since the most recent prior study of 06/05/2023. This was discussed with the provider caring for the patient, Dr. Quiroz, at 8:55 p.m. [employer]. 2. No imaging findings to explain diffuse abdominal pain. 3. In this patient with a history of a urinary tract infection, there is no evidence of obstructive uropathy. No evidence of pyelonephritis or renal abscess. The bladder is catheterized, as described above. CT scan - head: Radiologist's impression: INDICATION: Altered mental status. No other history provided. TECHNIQUE: CT of the head without contrast. Coronal and sagittal reformats. Bone and soft tissue algorithms. COMPARISON: 06/05/2023 CT FINDINGS: No acute intracranial hemorrhage or extra-axial collection. No evidence of acute cortical infarction. Encephalomalacia in the right posterior temporal lobe compatible with chronic infarct. No mass effect or midline shift. Moderate generalized cerebral/cerebellar parenchymal volume loss. Moderate regions of decreased attenuation within the periventricular and subcortical white matter of both cerebral hemispheres most likely reflects chronic microvascular ischemic disease and age related change in this patient. Vascular calcifications within the carotid siphons. Orbital contents are normal. No calvarial fractures. No lytic or sclerotic osseous lesions within the calvarium or skull base. Scalp and other imaged soft tissue structures are normal. Mastoid air cells are clear. Postoperative changes of occiput-cervical spine fusion hardware with significant associated metallic artifact. Mild mucosal thickening in the left maxillary sinus with partially visualized nasal polyp. Leftward deviation of the nasal septum. TMJ degenerative changes. IMPRESSION: 1. No evidence of acute intracranial abnormality. No significant changes compared to the prior exam. 2. Moderate generalized parenchymal volume loss and chronic microangiopathic changes. 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 Discharge Plan Discharge Disposition: [facility] Date of Admission: 09/04/23 23:05 Attending Provider on Discharge: Nick Garcia Primary Care Provider: Prakash Moore Condition: Improved Anticipated Discharge Date/Time: 09/07/23 11:00 Discharge Medications: New cephalexin 500 mg capsule 500 mg PO TID Qty: 15 0RF Continued melatonin 3 mg capsule 3 mg PO HS PRN bupropion HCl 150 mg tablet extended release 24 hr 150 mg PO DAILY Qty: 90 3RF furosemide 40 mg tablet 40 mg PO DAILY Qty: 90 3RF losartan 25 mg tablet 25 mg PO DAILY Qty: 90 3RF metoprolol succinate 25 mg tablet extended release 24 hr 25 mg PO DAILY Qty: 90 3RF fluconazole 150 mg tablet 150 mg PO QWEEK Qty: 12 4RF Patient Comments: takes on Wednesday omeprazole 20 mg capsule,delayed release(DR/EC) 20 mg PO DAILY prednisone 10 mg tablet 10 mg PO DAILY clobetasol 0.05 % lotion 1 applic topical BID PRN levothyroxine 25 mcg tablet 25 mcg PO DAILY magnesium oxide 400 mg magnesium tablet 400 mg PO DAILY@12 loratadine 10 mg tablet 10 mg PO DAILY estradiol 0.01 % (0.1 mg/gram) cream 0.5 g vaginal QWEEK Qty: 42.5 1RF Rx Instructions: Use nightly for two weeks, then decrease use to twice weekly for 2 weeks, then use once weekly. gabapentin 400 mg capsule 1,200 mg PO BID Qty: 540 3RF potassium chloride 10 mEq capsule, extended release 20 meq PO BID Qty: 120 0RF warfarin 3 mg tablet 1.5 mg PO DAILY Qty: 90 0RF Protocol: Dose Management Condition: Wednesday Dose/Route: 1.5 mg Instruction: 0.5 x 3 mg tablets Condition: Wednesday Dose/Route: 1.5 mg Instruction: 0.5 x 3 mg tablets Condition: Wednesday Dose/Route: 1.5 mg Instruction: 0.5 x 3 mg tablets Condition: Wednesday Dose/Route: 1.5 mg Instruction: 0.5 x 3 mg tablets Condition: Dose/Route: 1.5 mg Instruction: 0.5 x 3 mg tablets Condition: Wednesday Dose/Route: 1.5 mg Instruction: 0.5 x 3 mg tablets Condition: Wednesday Dose/Route: 1.5 mg Instruction: 0.5 x 3 mg tablets Protocol Text: Adjustment Start Date: Wednesday08/31/23 INR Value: 2.2 INR Date: 08/31/23 Recheck Date: 09/14/23 hydrocodone-acetaminophen 5-325 mg tablet 1 tab PO QDAY 30 Days Qty: 30 0RF hydroxychloroquine 200 mg tablet 200 mg PO .Daily At 12:00PM Qty: 90 0RF Discharge Orders: Discharge Order (Routine); Ordered 09/07/23 Ordered By: Nick Garcia Additional Instructions: I recommend that you have your daughter assist with setting up your medications. Some of your medications are critical for your health and high risk if medication errors are made. It is particularly important that you do not miss your prednisone, warfarin, metoprolol. Activity Level: Activity as Tolerated Discharge Diet: Regular Follow Up Appointments: Prakash Moore MD [Primary Care Provider] - 09/14/23 2:15 pm ([facility] follow up. INR needed during appointment. ) Forms: [employer] Info Instructions Admit to: [facility] assisted [facility] Discharge Potential: Good Length of Stay: <30 days Can use facility standing orders?: Yes Code Status: DNR/DNI TEDs: Bilateral Knee Rehab Potential: Good Therapy: Physical Therapy and Occupational Therapy Therapy Orders: Evaluate and Treat Oxygen: No Urinary Catheter: No
--- NOTE | 2023-09-07 12:24 | PC.NURSE ---
Discharge: Patient pleasant and cooperative, A&O. VSS. Colindres catheter removed at 1030, tip intact, has voided 100cc. IV removed, tip intact. Controlled medications returned to patient. Discharged to SNF.
--- NOTE | 2023-09-07 15:26 | PC.SOCIAL ---
Discharge planning- Tenisha (Nurse from [facility]) came to [facility] to assess pt for return to [facility]. Tenisha determined that pt would need to go to [facility] to determine increase in services and get some physical therapy, based off her assessment. Met with pt and she is concerned about the plan and does not want to private pay for enhanced assisted living. Pt asks if she can have a rehab stay and it be covered under medicare. Informed pt that based off therapy notes they are not recommending a rehab stay as she is transferring and ambulating well. It is recommended that she receive home care for PT/OT, but not SNF for therapies. Informed pt when there is not a skilled need for therapy, medicare will not cover a short-term rehab stay and she would have to private pay for SNF. When information was provided, pt no longer wanted to consider SNF. Phone call to pt's daughter to provide update. Pt's daughter will connect directly with [facility] nursing to discuss the future plans for placement and increased services. Pt will return to [facility] today and [facility] will send a van for pick-up at 12:00 pm. Phone call to Tenisha ([facility] Nurse, ) that pt is concerned and wants to return to her independent apartment. Tenisha will address concerns with pt and pt's daughter Giselle. Faxed updated therapy notes and discharge summary to [facility] Nurses at [phone].
== END 2023-09-07 12:11 | DRG 643 ==
LOC: ED 22:24 → MEDSURG 22:45
PROVIDERS: Family Medicine; Admitting Provider Family Medicine; Emergency Provider Student in an Organized Health Care Education/Training Program; PCP Family Medicine; Visit Provider Family Medicine
DX: E27.2 Addisonian crisis (principal); A41.51 Sepsis due to Escherichia coli [E. coli]; R65.20 Severe sepsis without septic shock; N39.0 Urinary tract infection, site not specified; I82.412 Acute embolism and thrombosis of left femoral vein; I48.20 Chronic atrial fibrillation, unspecified; D84.821 Immunodeficiency due to drugs; I50.32 Chronic diastolic (congestive) heart failure; I42.0 Dilated cardiomyopathy; T38.0X6A Underdosing of glucocorticoids and synthetic analogues, initial encounter; T45.1X5A Adverse effect of antineoplastic and immunosuppressive drugs, initial encounter; Z91.128 Patient's intentional underdosing of medication regimen for other reason; M32.9 Systemic lupus erythematosus, unspecified; M06.9 Rheumatoid arthritis, unspecified; R79.1 Abnormal coagulation profile; Z79.01 Long term (current) use of anticoagulants; R54 Age-related physical debility; D63.8 Anemia in other chronic diseases classified elsewhere; I11.0 Hypertensive heart disease with heart failure; G31.84 Mild cognitive impairment of uncertain or unknown etiology; F32.A Depression, unspecified; R79.89 Other specified abnormal findings of blood chemistry; G89.4 Chronic pain syndrome; Z79.52 Long term (current) use of systemic steroids; M17.11 Unilateral primary osteoarthritis, right knee; M16.12 Unilateral primary osteoarthritis, left hip; F41.9 Anxiety disorder, unspecified; K21.9 Gastro-esophageal reflux disease without esophagitis; Z86.711 Personal history of pulmonary embolism; Z87.11 Personal history of peptic ulcer disease; Z86.718 Personal history of other venous thrombosis and embolism; Z51.81 Encounter for therapeutic drug level monitoring; Z79.631 Long term (current) use of antimetabolite agent; M85.80 Other specified disorders of bone density and structure, unspecified site; E03.9 Hypothyroidism, unspecified; M41.9 Scoliosis, unspecified; Z78.9 Other specified health status; E78.5 Hyperlipidemia, unspecified
CPT/HCPCS: 36415; 70450; 74177; 80048; 80053; 81001; 82550; 82962; 83605; 83735; 84145; 84443; 84484; 85025; 85610; 86140; 87040; 87086; 87186; 93005; 93971; 97116; 97161; 97165; 97530; 97535; 99283; 99285; A9270; J0696; J1650; J1720; J7030; J7512; Q9967

== ENCOUNTER 2023-10-06 08:43 | Outpatient (CLI) | payer MEDICARE, BC, SELFPAY ==
--- OUTSIDE RECORDS SUMMARY | 2023-10-12 17:12 | XMS_ITS ---
Author Organization [facility] Address [address] [place] [address] Care Team Providers Care Venetian Blind Machine Operator Name Role Phone Unavailable Unavailable Unavailable Surgery Details Not on file Complications Check Surgery Details section. Procedure Estimated Blood Loss Check Surgery Details section. Procedure Findings Check Surgery Details section. Procedure Specimens Taken Check Surgery Details section.
--- OUTSIDE RECORDS SUMMARY | 2023-10-12 17:12 | XMS_ITS | Clinical Summary ---
Author Organization [facility] Address [place], [place] [address] Care Team Providers Care Coding Quality Coordinator Name Role Phone Prakash Moore MD Primary Care Provider [phone] Allergies Active Allergy Reactions Criticality Noted Date [...] once daily. Active MULTIVITS W-FE,OTHER MIN (PEDIATRIC ISTMNNJQ-LYNO-TSO ORAL) Take by mouth once daily. Active [...] Encounters Date Type Department Care Team Description 10/07/2023 1:00 PM CDT Ancillary Procedure [facility][Note 3] at [facility] [address] [place] [address] 07/14/2023 2:00 PM CRIMPING PRESS OPERATOR Office Visit [facility] [address] [place] [address] Saran Arias, DPM Follow Up (Right foot, [...] Comments Blood Pressure 110/69 07/14/2023 2:35 PM CRIMPING PRESS OPERATOR Pulse 77 07/14/2023 2:35 PM CRIMPING PRESS OPERATOR Temperature 36.5 ??C (97.7 ??F) 07/14/2023 2:35 PM CS T Respiratory Rate 16 05/24/2020 3:38 PM CRIMPING PRESS OPERATOR Oxygen Saturation 98% 07/14/2023 2:35 PM CRIMPING PRESS OPERATOR Inhaled Oxygen Concentration - - Weight 63.5 kg (140 lb) 05/24/2020 3:38 PM CRIMPING PRESS OPERATOR Height 143.5 cm (4' 8.5) 09/21/2017 4:21 [...] 01/09/2024 02/12/2011 Medical Devices Implanted Type Area Taker Off Drying Kiln Device Identifier Shelf Expiration Date Model / Serial / Lot [id number] 1-4mm 30cc Medtronic Chips Canclls Freeze Dried Implanted:Qty: 1 on 09/23/2017 by Chase Snowden MD at [facility] Explanted:at [facility] (Quantity not on file) N/A: Spine Medtronic Spine/Ortho 09/30/2021 [id number] / [id number] / Plate Ti Occipital 50mm Implanted:Qty: 1 on 09/23/2017 by Chase Snowden MD at [facility] N/A: Spine 04.161.001 / / Description:PLATE TI OCCIPIT AL 50MM Screw Occipital Ti 4.5 X 8 Implanted:Qty: 1 on 09/23/2017 by Chase Snowden MD at [facility] N/A: Spine 04.601.108 / / Description:SCREW OCCIPITAL TI 4.5 X 8 Screw Occipital Ti 4.5 X 10 Implanted:Qty: 1 on 09/23/2017 by Chase Snowden MD at [facility] N/A: Spine 04.601.110 / / Description:SCREW OCCIPITAL TI 4.5 X 10 Screw Cerv Post 4.5x14mm Synapse Va Canncls Titnm Implanted:Qty: 1 on 09/23/2017 by Chase Snowden MD at [facility] N/A: Spine 04.614.214 / / Description:SCREW CERV POST 4.5X14MM SYNAPSE VA CANNCLS TITNM Mushtaq Pre-Bent 3.6o991xk Titnm - [id number] Implanted:Qty: 2 on 09/23/2017 by Chase Snowden MD at [facility] N/A: Spine J And J Depuy Spine 04.161.032 # / / Set Screw Cerv Axon - [id number] Implanted:Qty: 2 on 09/23/2017 by Chase Snowden MD at [facility] N/A: Spine J And J Depuy Spine 406.104# / / Screw Cerv Post 4x10mm Synapseva Canncls Titnm - [id number] Implanted:Qty: 1 on 09/23/2017 by Chase Snowden MD at [facility] N/A: Spine J And J Depuy Spine 04.614.110 # / / Screw Cerv Post 4x12mm Synapseva Canncls Titnm - [id number] Implanted:Qty: 2 on 09/23/2017 by Chase Snowden MD at [facility] N/A: Spine J And J Depuy Spine 04.614.112 # / / Screw Cerv Post 4.5x10mm Synapse Va Canncls Titnm - [id number] Implanted:Qty: 1 on 09/23/2017 by Chase Snowden MD at [facility] N/A: Spine J And J Depuy Spine 04.614.210 # / / Screw Cerv Post 4.5x26mm Synapse Va Canncls Titnm - [id number] Implanted:Qty: 1 on 09/23/2017 by Chase Snowden MD at [facility] N/A: Spine J And J Depuy Spine 04.614.226 # / / Screw Cerv Post 4.5x28mm Synapse Va Canncls Titnm - [id number] Implanted:Qty: 3 on 09/23/2017 by Chase Snowden MD at [facility] N/A: Spine J And J Depuy Spine 04.614.228 # / / Set Screw Cerv Synapse - [id number] Implanted:Qty: 9 on 09/23/2017 by Chase Snowden MD at [facility] N/A: Spine J And J Depuy Spine 04.614.508 # / / Procedures Procedure Name Priority Date/Time Associated Diagnosis Comments ECHO TTE COMPLETE WO CONTRAST Routine 10/07/2023 1:24 PM CDT Heart failure (HC) Elevated troponin from Last 3 Months Results * ECHO TTE COMPLETE WO CONTRAST (10/07/2023 1:24 PM CDT) AORTIC VALVE MEAN PG 11 mmHg EJECTION FRACTION 47 % PEAK TR VELOCITY 2.3 m/s LVEDD 4.1 cm MITRAL VALVE MR ERO 22 mm2 EJECTION FRACTION 45 - 50% Anatomical Region Laterality Modality Ultrasound 10/07/2023 12:3 9 PM CDT Narrative 10/07/2023 1:47 PM CDT ECHOCARDIOGRAM SHILPI HALL ?Accession#: ?? [id number] : ?1945 78 years Study Date: ?? 10/07/2023 12:39:06 PM Gender: F ? BP: ? 109/70 mmHg Height: 140.00 cm ? BSA: ?1.46 m? ? ? Weight: 59.00 kg ?Tech: ? MJJ ?Referring MD: ANA M GARCIA Site: ? [facility] Reading Location: [facility] Patient Location: Inpatient. Procedure: 2D, Spectral Doppler and Color Doppler. Indication for study: Heart failure (HC); Elevated troponin Cardiac Rhythm: Regular.Study quality: Good. Final Impressions: 1. Normal LV size, moderately increased wall thickness, mildly reduced global systolic function with an estimated EF of 45 - 50%. 2. Mildly enlarged left atrium. 3. The aortic valve is calcified, mild stenosis and mild regurgitation. 4. The mitral valve is sclerotic, mild to moderate mitral regurgitation. Mean gradient 2 mm Hg at HR 63 bpm. 5. Moderate tricuspid regurgitation. 6. Trivial pericardial effusion. Chamber Sizes and Function Normal left ventricular size, moderately increased wall thickness, mildly reduced global systolic function with an estimated EF of 45 - 50%. Left atrial size is mildly enlarged. Right ventricular cavity size is normal, global systolic RV function is normal. RV wall thickness is normal. The right atrium is moderately enlarged. Right atrial area is 17 cm? ? ?. The pulmonary artery is of normal size and origin. The sinus of Valsalva is normal sized. The ascending aorta is normal sized. Valves, RV Pressures and Diastolic Function The aortic valve is calcified, mild stenosis and mild regurgitation. The mitral valve is sclerotic, mild to moderate mitral regurgitation. Moderate mitral annular calcification is present. Normal diastolic function for age. The tricuspid valve is normal in structure. Tricuspid regurgitation is moderate. The tricuspid regurgitant velocity is 2.3 m/s, the estimated right ventricular systolic pressure is 21 mmHg plus right atrial pressure. There is normal estimated pulmonary pressure by tricuspid regurgitation velocity and right atrial pressure. The pulmonic valve is normal. Trace pulmonary regurgitation. Masses, Effusion, Shunts There is trivial pericardial effusion. The inferior vena cava is dilated, respiratory size variation less than 50%. No left to right shunting was detected by limited color flow Doppler interrogation of the interatrial septum. MEASUREMENTS AND CALCULATIONS 2-D Measurements and LV Function: LVID (d) 4.1 cm LV FS% (2D) ?? 31 % LVID (s) 2.8 cm LVOT diameter 1.9 cm IVS (d) ??1.4 cm HR ?62 bpm LVPW (d) 1.1 cm LA Vol index ??54 ml/m2 Ao Sinus 2.7 cm RA area ? 17 cm? ? ? Asc Ao ?? 3.3 cm LA ? 3.4 cm Diastology: Mitral ?Tissue Doppler ?Pulmonary veins E Peak 1.2 m/s ??e', Septum ? 0.09 m/s Pulm s ?52.8 cm/s A Peak 0.9 m/s ??e', Lateral ?0.09 m/s Pulm d ?52.8 cm/s E/A ?1.4 ?E/e' Average ?? 13.74 ?Pulm s/d ratio ??1.00 DT ? 179 msec Aortic Valve: Vmax ? 2.2 m/s ??DARIO (V) ?? 1.21 cm? AI P 1/2 459 msec VTI ?0.49 m ?? DARIO (I) ?? 1.20 cm? ? ? LVOT V max 1.0 m/s ??Max PG ?19 mmHg LVOT VTI ?? 0.22 m ?? Mean PG ?? 11 mmHg SV ? 59 ml ?Dim Index 0.44 SV index ?? 41 ml/m? ? ? CO ?3.7 l/min ?CI ?2.5 l/min/m? ? ? Mitral Valve: MVA ? 4.2 cm? ? ? MR ERO ??0.22 cm? ? ? MV P 1/2 ??52 msec MR Vol. 18 ml MV Mean G 3 mmHg ??MR TVI ??0.81 m MV VTI ?0.40 m Tricuspid Valve and estimated PA pressures: TR Vmax 2.3 m/s TAPSE 1.7 cm TR maxG 21 mmHg . This study was interpreted by an [facility] accredited facility. CC: [facility] (med records) [facility], Med/Surg - IP [facility]. ??Final ?? Procedure Note Tarun Coppola MD - 10/07/2023 ECHOCARDIOGRAM SHILPI HALL : 1945 78 years Study Date: 10/07/2023 12:39:06 PM Gender: F BP: 109/70 mmHg Height: 140.00 cm BSA: 1.46 m? ? ? Weight: 59.00 kg Tech: PAUL Referring MD: ANA M GARCIA Site: [facility] Reading Location: [facility] Patient Location: Inpatient. Procedure: 2D, Spectral Doppler and Color Doppler. Indication for study: Heart failure (HC); Elevated troponin Cardiac Rhythm: Regular.Study quality: Good. Final Impressions: 1. Normal LV size, moderately increased wall thickness, mildly reducedglobal systolic function with an estimated EF of 45 - 50%. 2. Mildly enlarged left atrium. 3. The aortic valve is calcified, mild stenosis and mild regurgitation. 4. The mitral valve is sclerotic, mild to moderate mitral regurgitation.Mean gradient 2 mm Hg at HR 63 bpm. 5. Moderate tricuspid regurgitation. 6. Trivial pericardial effusion. Chamber Sizes and Function Normal left ventricular size, moderately increased wall thickness, mildlyreduced global systolic function with an estimated EF of 45 - 50%. Leftatrial size is mildly enlarged. Right ventricular cavity size is normal,global systolic RV function is normal. RV wall thickness is normal. Theright atrium is moderately enlarged. Right atrial area is 17 cm? ? ?. Thepulmonary artery is of normal size and origin. The sinus of Valsalva isnormal sized. The ascending aorta is normal sized. Valves, RV Pressures and Diastolic Function The aortic valve is calcified, mild stenosis and mild regurgitation. Themitral valve is sclerotic, mild to moderate mitral regurgitation. Moderatemitral annular calcification is present. Normal diastolic function forage. The tricuspid valve is normal in structure. Tricuspid regurgitationis moderate. The tricuspid regurgitant velocity is 2.3 m/s, the estimatedright ventricular systolic pressure is 21 mmHg plus right atrial pressure.There is normal estimated pulmonary pressure by tricuspid regurgitationvelocity and right atrial pressure. The pulmonic valve is normal. Tracepulmonary regurgitation. Masses, Effusion, Shunts There is trivial pericardial effusion. The inferior vena cava is dilated,respiratory size variation less than 50%. No left to right shunting wasdetected by limited color flow Doppler interrogation of the interatrialseptum. MEASUREMENTS AND CALCULATIONS 2-D Measurements and LV Function: LVID (d) 4.1 cm LV FS% (2D) 31 % LVID (s) 2.8 cm LVOT diameter 1.9 cm IVS (d) 1.4 cm HR 62 bpm LVPW (d) 1.1 cm LA Vol index 54 ml/m2 Ao Sinus 2.7 cm RA area 17 cm? ? ? Asc Ao 3.3 cm LA 3.4 cm Diastology: Mitral Tissue Doppler Pulmonary veins E Peak 1.2 m/s e', Septum 0.09 m/s Pulm s 52.8 cm/s A Peak 0.9 m/s e', Lateral 0.09 m/s Pulm d 52.8 cm/s E/A 1.4 E/e' Average 13.74 Pulm s/d ratio 1.00 DT 179 msec Aortic Valve: Vmax 2.2 m/s DARIO (V) 1.21 cm? ? ? AI P 1/2 459 msec VTI 0.49 m DARIO (I) 1.20 cm? ? ? LVOT V max 1.0 m/s Max PG 19 mmHg LVOT VTI 0.22 m Mean PG 11 mmHg SV 59 ml Dim Index 0.44 SV index 41 ml/m? ? ? CO 3.7 l/min CI 2.5 l/min/m? ? ? Mitral Valve: MVA 4.2 cm? ? ? MR ERO 0.22 cm? ? ? MV P 1/2 52 msec MR Vol. 18 ml MV Mean G 3 mmHg MR TVI 0.81 m MV VTI 0.40 m Tricuspid Valve and estimated PA pressures: TR Vmax 2.3 m/s TAPSE 1.7 cm TR maxG 21 mmHg . This study was interpreted by an [facility] accredited facility. CC: [facility] (med records) [facility], Med/Surg - IP [facility]. Final Ana M Garcia MD ECHO ORD from Last 3 Months Advance Directives * Full Code (Latest Code Status on File) Date Activated Date Inactivated Comments 09/23/2017 7:47 PM 09/28/2017 12:30 PM Care Teams Coding Quality Coordinator Relationship Specialty Start Date End Date Prakash Moore MD [address] [place] [address] PCP - General Family Practice 09/20/17
--- OUTSIDE RECORDS SUMMARY | 2023-10-12 17:12 | XMS_ITS | Continuity of Care Document ---
Author Organization [facility] Address [address] [place] [address] Phone Care Team Providers Care Onyx Chip Terrazzo Worker Name Role Phone Chase Snowden MD Unavailable [...] Seg Office/Outpatient Visit,Est, Mod 2017 Office/Outpatient Visit,New, [facility] 2017 Office/Outpatient Visit,Est, Mod 2011 Postop Followup Visit Remove Lumbar Spine Lamina, 1 Seg Pa Assist Remove Lumbar Spine Lamina, 1 Seg Office/Outpatient Visit,New, Mod 2011 X-Ray Exam Lwr Spine, Min 4 Views Advance Directives Directive Yes / No Effective Date File Name No Information Encounters Encounter Description Practice Location Reason(s) For Visit Diagnoses Date Provider Providers Copied on Encounter [facility], [address] [place] [address], [id number], [place] tel:[phone] No Information 1 Sp Stone. [facility] [place], [address] [place] [address], [id number], . [phone] [facility], [address] [place] [address], [id number], [place] tel:[phone] [facility] Arthrodesis status 1 No Information Office/Outpa tient Visit,Est, Mod [facility], [address] [place] [address], [id number], [place] tel:[phone] [facility] No Information 1 No Information Referring Provider: Prakash Mccauley, [facility] [place] [facility] [address] [place], [address]. tel:[phone] Office/Outpa tient Visit,Est, Mod [facility], [address] [place] [address], [id number], [place] tel:[phone] [facility] Arthrodesis status 0 Sp Stone. [facility] [place], [address] [place] [address], [id number], [place]. tel:[phone] Referring Provider: Prakash Mccauley, [facility] [place] [facility] [address] [place], [address]. tel:[phone] Office/Outpa tient Visit,Est, Mod [facility], [address] [place] [address], [id number], [place] tel:[phone] [facility] Kyphosis 0 Sp Stone. [facility] [place], [address] [place] [address], [id number], [place]. tel:[phone] Referring Provider: Prakash Mccauley, [facility] [place] [facility] [address] [place], [address]. tel:[phone] Office/Outpa tient Visit,Est, Low [facility], [address], [place], [id number], [place] tel:[phone] [facility] Arthrodesis status Sp Stone. [facility] [place], [address], [address], [id number], [place]. tel:[phone] Referring Provider: Prakash Mccauley, [facility] [place] [facility] [address] [place], [address]. tel:[phone] Office/Outpa tient Visit,Est, Low [facility], [address], [place], [place], [id number], [place] tel:[phone] [facility] Encounter for other specified surgical aftercare Sp Stone. [facility] [place], [address] [place] [address], [address], [id number], [place]. tel:[phone] Referring Provider: Prakash Mccauley, [facility] [place] [facility] [address] [place], [address]. tel:[phone] [facility], [address] [place] [address], [id number], [place] tel:[phone] [facility] Encounter for other specified surgical aftercare Sp Stone. [facility] [place], [address], [address], [id number], [place]. tel:[phone] Referring Provider: Prakash Mccauley, [facility] [place] [facility] [address] [place], [address]. tel:[phone] [facility], [address], [place], [id number], [place] tel:[phone] [facility] Encounter for other specified surgical aftercare Sp Stone. [facility] [place], [address], [address], [id number], [place]. tel:[phone] Referring Provider: Prakash Mccauley, [facility] [place] [facility] [address] [place], [address]. tel:[phone] [facility], [address], [place], [place], [id number], [place] tel:[phone] [facility] No Information Chris Meneses. [facility], [address], [place], [address], [place]. tel:[phone] Referring Provider: Prakash Mccauley, [facility] [place] [facility] [address] [place], [address]. tel:[phone] [facility], [address], [place], [place], [id number], [place] tel:[phone] [facility] No Information Sp Stone. [facility] [place], [address] [place] [address], Ernesto [address] [place] [address], [id number], [place]. tel:[phone] Referring Provider: Prakash Mccauley, [facility] [place] [facility] [address] [place], [address]. tel:[phone] Office/Outpa tient Visit,Est, Mod [facility], [address] [place] [address], [id number], [place] tel:[phone] [facility] Spinal stenosis, cervical region Sp Stone. [facility] [place], [address], [facility] [address], [place], [place], [id number], [place]. tel:[phone] Referring Provider: Prakash Mccauley, [facility] [place] [facility] [address] [place], [address]. tel:[phone] Office/Outpa tient Visit,New, Mod [facility], [address], [place], [id number], [place] tel:[phone] [facility] Postlaminect jasmine kyphosisSpin al stenosis, cervical regionArthro desis status No Information Referring Provider: Prakash Mccauley, [facility] [place] [facility] [address] [place], [address]. tel:[phone] Office/Outpa tient Visit,Est, Mod Z [facility], [address], [place], [address], [place] tel:[phone] [facility] No Information 2 No Information Referring Provider: Prakash Mccauley, [facility] [place] [facility] [address] [place], [address]. tel:[phone] Z [facility], [address], [place], [address], [place] tel:[phone] [facility] No Information 2 No Information Referring Provider: Prakash Mccauley, [facility] [place] [facility] [address] [place], [address]. tel:[phone] Z [facility], [address] [facility], [place], [address], [place] tel:[phone] [facility] No Information No Information Referring Provider: Prakash Mccauley, [facility] [place] [facility] [address] [place], [address]. tel:[phone] Z [facility], [address] [facility] [address], [place], [address], [place] tel:[phone] [facility] LUPUS ERYTHEMATOSU SOsteopeniaA nxietyGERDCA TARACT NOS No Information Office/Outpa tient Visit,New, Mod Z [facility], [address], [place], [address], [place] tel:[phone] [facility] No Information No Information Referring Provider: Prakash Mccauley, [facility] [place] [facility] [address] [place], [address]. tel:[phone] Family History Family Member Type Diagnosis Age At Onset Mother Problem (finding) hypothyroidism Father Problem (finding) Cancer, unknown Mother Problem (finding) hypertension Problem (finding) Family history of prost ate cancer Payers Payer name Insurance type Covered alliance party ID Avaa angus(s) [facility] [id number] Medicare [facility] [id number] 1 Social History Type Description Quantity Date [...]
--- OUTSIDE RECORDS SUMMARY | 2023-10-12 17:12 | XMS_ITS | Encounter Summary ---
Author Organization [facility] Address [address] [place] [address] Care Team Providers Care Acoustical Tile Carpenters Supervisor Name Role Phone Elsewhere, Pcp Primary Care Provider Unavailabl e Reason for Visit * Reason Comments Med Refill Encounter Details Date Type Department Care Team (Late st Contact Info) Description 08/30/2023 Refill Division of Rheumatology in [place], [place] [address] [place] [phone] Brittany Jauregui, EVE, C.N.P., M.S. [address] [place] [address] Med Refill Social History Tobacco Use Types [...] any clubs o r organizations such as evangelical groups, unions, fraternal or athletic groups, or [...] heating? Not hard at all 11/21/2021 [facility] - [...] Master's degree (e.g., MA, MS, Sariah, MEd, [employer], OFE) 12/22/2018 Sex and Gender Information [...] VASC visit: 10/16/2022 with El Aldana APRN, CUPOLA MELTER Future office visit: ordered, not yet scheduled Last monitoring None Needed: Not required for medication renewal requested. Prescription request matches current plan of care. Prescription request does not match a current prescription in the Medication List. Exclusion criteria: None (If an alert appeared, it was determined to be an approved exception) ASSESSMENT/PLAN Prescription request requested refill denied . Call placed to [facility] to ask about requested refill. The pharmacist stated that the patients Prednisone has been prescribed by a local provider in [place], Dr. Prakash Moore and that the last [...] documented as of this encounter Care Teams Acoustical Tile Carpenters Supervisor Relationship Specialty Start Date End Date Elsewhere, Pcp PCP - General Internal Medicine 11/20/21 documented as of this encounter
--- OUTSIDE RECORDS SUMMARY | 2023-10-12 17:12 | XMS_ITS | Clinical Summary ---
Author Organization [facility] Address [address] [place] [address] Care Team Providers Care Computer Numerical Control Operator Name Role Phone Elsewhere, Pcp Primary Care Provider Unavailabl e Source Comments Patient records contain information from all sites at [facility]. For routine questions regarding patient records, call [phone] during business hours, M-F 8:00 AM - 5:00 PM Central Time. Record requests for emergency care only can be directed to [phone] at any time.[facility] Allergies Active Allergy Reactions Criticality Noted Date [...] Description 08/30/2023 Refill Division of Rheumatology in [place], [place] [address] [place] [address] Brittany Jauregui APRN, C.N.P., M.S. Med Refill [...] any clubs o r organizations such as baptist groups, unions, fraternal or athletic groups, or [...] and heating? Not hard at all 11/21/2021 [facility] Occupat ional [facility] - [...] Master's degree (e.g., MA, MS, Sariah, MEd, OUTREACH DIRECTOR, OFE) 12/22/2018 Sex and Gender Information [...] this topic Medical Devices Implanted Type Area Project Manager Senior Device Identifier Shelf Expiration Date Model / Serial / Lot Hardware E.G. Pins/Screws/Mushtaq s Hardware e.g. pins/screws /rods Left: Mouth Description:Lower Left x 1 t ooth implant Hardware E.G. Pins/Screws/Mushtaq s Hardware e.g. pins/screws /rods N/A: Mouth Screw Biomet 3.5 Hex Lock 4.75 X 20 - Simmons [id number] Implanted:Qty: 1 on 06/15/2016 Hardware e.g. pins/screws /rods Other/Legacy - See Implant Description BioMet Description:Device Manufactu rer - [employer] Body Location - Other. Left. Device Status Text - [id number]. Conversions - Default Historical Implant Device Implanted:06/15 [...] Imp. Biomet Glenospher 36mm Std. - Simmons [id number] Implanted:Qty: 1 on 06/15/2016 Shoulder Implant Other/Legacy - See Implant Description BioMet Description:Device Manufactu rer - Bi[employer] Inc. Body Location - Other. Left. Device Status Text - [id number]. Biomet Hum. Bearing E1 Std 44-36 - Simmons [id number] Implanted:Qty: 1 on 06/15/2016 Shoulder Implant Other/Legacy - See Implant Description BioMet Description:Device Manufactu rer - [employer] Inc. Body Location - Other. Left. Device Status Text - [id number]. Biomet Glenoid Baseplate Mini W Adaptor - Simmons [id number] Implanted:Qty: 1 on 06/15/2016 Shoulder Implant Other/Legacy - See Implant Description BioMet Description:Device Manufactu rer - [employer] Inc. Body Location - Other. Left. Device Status Text - [id number]. Bio. Comp Micro Stem 6mm - Simmons [id number] Implanted:Qty: 1 on 06/15/2016 Shoulder Implant Other/Legacy - See Implant Description BioMet Description:Device Manufactu rer - [employer] Inc. Body Location - Other. Left. Device Status Text - [id number]. Biomet-Screw Central 6.5mm X 20mm - Simmons [id number] Implanted:Qty: 1 on 06/15/2016 Shoulder Implant Other/Legacy - See Implant Description BioMet Description:Device Manufactu rer - Bi[employer] Inc. Body Location - Other. Left. Device Status Text - [id number]. Biomet Hum Tray Comp Rev 44mm Std - Simmons [id number] Implanted:Qty: 1 on 06/15/2016 Shoulder Implant Other/Legacy - See Implant Description BioMet Description:Device Manufactu rer - [employer] Inc. Body Location - Other. Left. Device Status Text - [id number]. Screw Biomet 3.5 Non-Lock 4.75 X 25 - Simmons [id number] Implanted:Qty: 1 on 06/15/2016 Shoulder Implant Other/Legacy - See Implant Description BioMet Description:Device Manufactu rer - Bi[employer] Inc. Body Location - Other. Left. Device Status Text - SHOULDER-[id number]. Procedures Procedure Name Priority Date/Time Associated Diagnosis Comments CREATININE WITH EGFR, S/P Routine 04/27/2023 ELECTROLYTE (CHEM 4) PANEL, S/P Routine 07/20/2016 5:51 AM CDT from Last 3 Months or Most Recently Relevant to Health Maintenance Results * Creatinine with Estimated GFR (04/27/2023) EXT Creatinine 0.8 0.5 - 1.5 mg/dL [facility] Blood (Blood, Venous) El Aldana APRN, C.N.P. LAB BLOOD AD D-ON [facility] [address] [phone] * (ABNORMAL) Electrolyte (Chem 4) Panel (07/20/2016 5:51 AM CDT) Pathologist [facility] [place] Sodium, S 142 135 - 145 MMOL/L [facility] Comment:Drawn From PICC Potassium, S 3.6 3.6 - 5.2 MMOL/L [facility] Comment:Drawn From PICC Creatinine 0.6 0.6 - 1.1 MG/DL [facility] Comment:Drawn From PICC BUN (Blood Urea Nitrogen), S 12 6 - 21 MG/DL [facility] Comment:Drawn From PICC Chloride, S 107 98 - 107 MMOL/L [facility] Comment:Drawn From PICC HX Bicarbonate, P/S 21(L) 22 - 29 MMOL/L [facility] Comment:Drawn From PICC Anion Gap 14 7 - 15 [facility] Comment:Drawn From PICC Glucose, S 90 70 - 140 MG/DL [facility] Comment:Drawn From PICC 07/20/2016 5:51 AM CDT 07/20/2016 5:51 AM CDT Narrative [facility] - 07/20/2016 6:49 AM CDT Drawn From PICC Aditya El M.D. LAB BLOOD ADD-ON [facility] [address] [place] [address], [facility] from Last 3 Months or Most Recently Relevant to Health Maintenance Additional Health Concerns Infection Onset Date Last Indicated Protective Environment 08/17/2022 3 Advance Directives For more information, please contact: [phone] Documents on File Type Date Recorded Patient Technology Education Instructor Expl anation Advance Directives 11/21/2021 5:50 PM JOSE T/JAYESH Advance Directives 07/10/2015 12:00 AM Ashly luong document. See document viewer. Care Teams Computer Numerical Control Operator Relationship Specialty Start Date End Date Elsewhere, Pcp PCP - General Internal Medicine 11/20/21
--- OUTSIDE RECORDS SUMMARY | 2023-10-12 17:12 | XMS_ITS | Referral Summary ---
Author Organization [facility] Address [address] [place] [address] Care Team Providers Care Reclamation Worker Name Role Phone Elsewhere, Pcp Primary Care Provider Unavailabl e Source Comments Patient records contain information from all sites at [facility]. For routine questions regarding patient records, call [phone] during business hours, M-F 8:00 AM - 5:00 PM Central Time. Record requests for emergency care only can be directed to [phone] at any time.[facility] Encounters Date Type Department Care Team Description 08/30/2023 Refill Division of Rheumatology in [place], [place] [address] [place] [address] Brittany Jauregui APRN, C.N.P., M.S. Med Refill [...] How often do you attend chur or jainism services? 1 to 4 times per year 11/21/2021 Do you belong to any clubs o r organizations such as yazdanism groups, unions, fraternal or athletic groups, or [...] and heating? Not hard at all 11/21/2021 [facility] Occupat ional Health - Occupational Stress [...] Master's degree (e.g., MA, MS, Sariah, MEd, PRINT BINDING AND FINISHING WORKER, OFE) 12/22/2018 Sex and Gender Information Value [...] on file Medical Devices Implanted Type Area Emt/Dispatcher Device Identifier Shelf Expiration Date Model / Serial / Lot Hardware E.G. Pins/Screws/Mushtaq s Hardware e.g. pins/screws /rods Left: Mouth Description:Lower Left x 1 t ooth implant Hardware E.G. Pins/Screws/Mushtaq s Hardware e.g. pins/screws /rods N/A: Mouth Screw Biomet 3.5 Hex Lock 4.75 X 20 - Simmons [id number] Implanted:Qty: 1 on 06/15/2016 Hardware e.g. pins/screws /rods Other/Legacy - See Implant Description BioMet Description:Device Manufactu rer - [employer]. Body Location - Other. Left. Device Status Text - [id number]. Conversions - Default Historical Implant Device Implanted:06/15 [...] Imp. Biomet Glenospher 36mm Std. - Simmons [id number] Implanted:Qty: 1 on 06/15/2016 Shoulder Implant Other/Legacy - See Implant Description BioMet Description:Device Manufactu rer - Bi[employer] Inc. Body Location - Other. Left. Device Status Text - SHOULDER-[id number]. Biomet Hum. Bearing E1 Std 44-36 - Simmons [id number] Implanted:Qty: 1 on 06/15/2016 Shoulder Implant Other/Legacy - See Implant Description BioMet Description:Device Manufactu rer - Bi[employer] Inc. Body Location - Other. Left. Device Status Text - [id number]. Biomet Glenoid Baseplate Mini W Adaptor - Simmons [id number] Implanted:Qty: 1 on 06/15/2016 Shoulder Implant Other/Legacy - See Implant Description BioMet Description:Device Manufactu rer - Bi[employer] Inc. Body Location - Other. Left. Device Status Text - [id number]. Bio. Comp Micro Stem 6mm - Simmons [id number] Implanted:Qty: 1 on 06/15/2016 Shoulder Implant Other/Legacy - See Implant Description BioMet Description:Device Manufactu rer - Bi[employer] Inc. Body Location - Other. Left. Device Status Text - [id number]. Biomet-Screw Central 6.5mm X 20mm - Simmons [id number] Implanted:Qty: 1 on 06/15/2016 Shoulder Implant Other/Legacy - See Implant Description BioMet Description:Device Manufactu rer - Bi[employer] Inc. Body Location - Other. Left. Device Status Text - [id number]. Biomet Hum Tray Comp Rev 44mm Std - Simmons [id number] Implanted:Qty: 1 on 06/15/2016 Shoulder Implant Other/Legacy - See Implant Description BioMet Description:Device Manufactu rer - Biomet Inc. Body Location - Other. Left. Device Status Text - [id number]. Screw Biomet 3.5 Non-Lock 4.75 X 25 - Simmons [id number] Implanted:Qty: 1 on 06/15/2016 Shoulder Implant Other/Legacy - See Implant Description BioMet Description:Device Manufactu rer - Biomet Inc. Body Location - Other. Left. Device Status Text - SHOULDER-[id number]. Procedures Procedure Name Priority Date/Time Associated Diagnosis Comments CREATININE WITH EGFR, S/P Routine 04/27/2023 ELECTROLYTE (CHEM 4) PANEL, S/P Routine 07/20/2016 5:51 AM CDT from Last 3 Months or Most Recently Relevant to Health Maintenance Results * Creatinine with Estimated GFR (04/27/2023) Pathologist [facility] EXT Creatinine 0.8 0.5 - 1.5 mg/dL [facility] Blood (Blood, Venous) Sabino Scott APRNNArmida LAB BLOOD AD D-ON [facility] [address] [phone] * (ABNORMAL) Electrolyte (Chem 4) Panel (07/20/2016 5:51 AM CDT) Pathologist [facility] Sodium, S 142 135 - 145 MMOL/L [facility] Comment:Drawn From PICC Potassium, S 3.6 3.6 - 5.2 MMOL/L [facility] Comment:Drawn From PICC Creatinine 0.6 0.6 - 1.1 MG/DL [facility] Comment:Drawn From PICC BUN (Blood Urea Nitrogen), S 12 6 - 21 MG/DL [facility] Comment:Drawn From PICC Chloride, S 107 98 - 107 MMOL/L [facility] Comment:Drawn From PICC HX Bicarbonate, P/S 21(L) 22 - 29 MMOL/L [facility] Comment:Drawn From PICC Anion Gap 14 7 - 15 [facility] Comment:Drawn From PICC Glucose, S 90 70 - 140 MG/DL [facility] Comment:Drawn From PICC 07/20/2016 5:51 AM CDT 07/20/2016 5:[address] [facility] - 07/20/2016 6:49 AM CDT Drawn From PICC Aditya El M.D. LAB BLOOD ADD-ON [facility] [address] [place] [address], [facility] from Last 3 Months or Most Recently Relevant to Health Maintenance Additional Health Concerns Infection Onset Date Last Indicated Protective Environment 08/17/2022 3 Advance Directives For more information, please contact: [phone] Documents on File Type Date Recorded Patient Automatic Spinning Lathe Setter Expl anation Advance Directives 11/21/2021 5:50 PM POLS T/MOLST Advance Directives 07/10/2015 12:00 AM Lega cy document. See document viewer. Care Teams Reclamation Worker Relationship Specialty Start Date End Date Elsewhere, Pcp PCP - General Internal Medicine 11/20/21
== END 2023-10-06 08:44 | disposition home or self-care (01) ==
LOC: AMB 10-12 17:10
PROVIDERS: PCP Family Medicine; Visit Provider Family Medicine
DX: R53.1 Weakness (principal); R22.33 Localized swelling, mass and lump, upper limb, bilateral
CPT/HCPCS: A0425; A0429

== ENCOUNTER 2023-10-06 09:09 | Inpatient (IN) | payer MEDICARE, BC, SELFPAY ==
[2023-10-06] VITALS (32 sets, daily range): BP systolic 107–138; BP diastolic 50–87; PULSE 71–168; RESP 12–22; TEMP 36.9–37.5; O2SAT 92–97; BMI 28.0; BMI 28.8
--- NOTE | 2023-10-06 09:39 | CRLHL7_ITS ---
For Patients: As a result of the Century Cures Act, medical imaging exams and procedure reports are released immediately into your electronic medical record. You may view this report before your referring provider. If you have questions, please contact your health care provider. Indication: SWELLING IN HANDS AND FEET PORTABLE CHEST IMAGE Technique: AP view of the chest. Comparison: 06/22/2021 Findings: Postsurgical changes from screw fixated reverse left total shoulder arthroplasty. Moderate degenerative changes of the right shoulder. Low lung volumes. Moderately enlarged cardiomediastinal silhouette with calcified aortic knob. Mild pulmonary edema. Trace left pleural effusion. No visualized pneumothorax. Partial visualization of lumbar spinal fusion hardware. Impression: Mild pulmonary edema with trace left pleural effusion. Dictated by Blair Lewis MD @ 10/06/2023 10:19:34 AM (Electronically Signed)
--- NOTE | 2023-10-06 09:41 | ED.GENADULT ---
HPI - General Adult General Time Seen by Provider: 09:42 Date Seen: 10/06/23 Chief complaint: Extremity Pain/Injury, Lower Stated complaint: swelling Time Seen by Provider: 10/06/23 09:16 Source: patient and EMS Mode of arrival: EMS Limitations: no limitations History of Present Illness HPI narrative: Shilpi is a 78-year-old female with atrial fibrillation on chronic anticoagulation with Coumadin, heart failure, chronic anemia, deep vein thrombosis, chronic lower extremity edema, lower extremity cellulitis presents emerged department via EMS from [facility] possible fluid overload and cellulitis. Patient states over the last 2 days she has felt increased weakness, chills and fever, she says she has to put on 2 blankets to keep herself warm. She denies any recent falls, she denies any nausea vomiting, she has had no upper respiratory complains. She denies any history of MRSA in the past. Lower extremities have become more red, warm and painful. She has also had pain in her bilateral groins, she denies any abdominal pain, no diarrhea or urinary complaints. He due to the worsening symptoms she called EMS. Related Data Home Medications ?Medication ?Instructions ?Recorded ?Confirmed melatonin 3 mg capsule 3 mg PO HS PRN 01/13/22 10/06/23 omeprazole 20 mg capsule,delayed 20 mg PO DAILY 05/13/23 10/06/23 release prednisone 10 mg tablet 10 mg PO DAILY 05/13/23 10/06/23 levothyroxine 25 mcg tablet 25 mcg PO DAILY 06/05/23 10/06/23 loratadine 10 mg tablet 10 mg PO DAILY allergic symptoms 06/05/23 10/06/23 magnesium oxide 400 mg PO DAILY@12 06/05/23 10/06/23 clobetasol 0.05 % lotion 1 applic topical BID PRN 07/13/23 09/05/23 Previous Rx's ?Medication ?Instructions ?Recorded estradiol 0.01% (0.1 mg/gram) 0.5 g vaginal QWEEK #42.5 grams 01/30/22 vaginal cream bupropion HCl 150 mg 24 hr tablet, 150 mg PO DAILY #90 tabs 02/25/23 extended release furosemide 40 mg tablet 40 mg PO DAILY #90 tabs 02/25/23 losartan 25 mg tablet 25 mg PO DAILY #90 tabs 02/25/23 metoprolol succinate 25 mg 25 mg PO DAILY #90 tabs 02/25/23 tablet,extended release 24 hr gabapentin 400 mg capsule 1,200 mg (3 x 400 mg) PO BID #540 05/14/23 caps warfarin 3 mg tablet 1.5 mg PO DAILY #90 tabs 08/11/23 hydroxychloroquine 200 mg tablet 200 mg PO .Daily At 12:00PM #90 08/30/23 tabs hydrocodone 5 mg-acetaminophen 325 1 tab PO QDAY pain 30 days #30 tabs 09/27/23 mg tablet Allergies Allergy/AdvReac Type Severity Reaction Status Date / Time amitriptyline Allergy Severe disorientat Verified 07/27/23 15:37 ion penicillin V Allergy Severe upset Verified 07/27/23 15:37 stomach and rash perphenazine Allergy Severe disorientat Verified 07/27/23 15:37 ion adhesive Allergy Unknown Unknown Verified 07/27/23 15:37 bee venom protein (honey bee) AdvReac Severe Anaphylaxis Verified 07/27/23 15:37 latex AdvReac Severe Rash Verified 07/27/23 15:37 amoxicillin AdvReac Intermediate Diarrhea Verified 07/27/23 15:37 Tricyclic antidepressant Allergy Severe disorientat Uncoded 07/27/23 15:37 ion Bee venom Allergy Mild swells and Uncoded 07/27/23 15:37 area turns red Sulfa drugs Allergy Unknown Unknown Uncoded 07/27/23 15:37 Clavulanate AdvReac Intermediate Diarrhea Uncoded 07/27/23 15:37 Review of Systems Status of ROS: Reports: 10 or more systems reviewed and unremarkable except as noted in History and below [facility] Medical History Frailty syndrome in geriatric patient ?R54 - Age-related physical debility (ICD-10) Cognitive impairment ?R41.89 - Other symptoms and signs involving cognitive functions and awareness (ICD-10) Heart failure ?I50.9 - Heart failure, unspecified (ICD-10) DVT (deep venous thrombosis) ?I82.409 - Acute embolism and thrombosis of unspecified deep veins of unspecified lower extremity (ICD-10) 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, unspecified (ICD-10) Urinary tract infection ?N39.0 - Urinary tract infection, site not specified (ICD-10) Anemia due to gastrointestinal blood loss ?D50.0 - Iron deficiency anemia secondary to blood loss (chronic) (ICD-10) Anemia of chronic disease ?D63.8 - Anemia in other chronic diseases classified elsewhere (ICD-10) Atrial fibrillation with rapid ventricular response ?I48.91 - Unspecified atrial fibrillation (ICD-10) Atrial fibrillation ?I48.91 - Unspecified atrial fibrillation (ICD-10) Hypothyroidism ?E03.9 - Hypothyroidism, unspecified (ICD-10) Left leg cellulitis ?L03.116 - Cellulitis of left lower limb (ICD-10) Systemic lupus erythematosus ?M32.9 - Systemic lupus erythematosus, unspecified (ICD-10) Psoriasis ?L40.9 - Psoriasis, unspecified (ICD-10) Anemia ?D64.9 - Anemia, unspecified (ICD-10) Yeast dermatitis ?B37.2 - Candidiasis of skin and nail (ICD-10) Environmental allergies ?Z91.09 - Other allergy status, other than to drugs and biological substances (ICD-10) Osteoarthritis of left hip ?M16.12 - Unilateral primary osteoarthritis, left hip (ICD-10) Osteoarthritis of right knee ?M17.11 - Unilateral primary osteoarthritis, right knee (ICD-10) Osteoarthritis of right shoulder ?M19.011 - Primary osteoarthritis, right shoulder (ICD-10) Urethral caruncle ?N36.2 - Urethral caruncle (ICD-10) Weakness ?R53.1 - Weakness (ICD-10) Unsteady gait ?R26.81 - Unsteadiness on feet (ICD-10) Tubular adenoma ?D36.9 - Benign neoplasm, unspecified site (ICD-10) Spinal stenosis ?M48.00 - Spinal stenosis, site unspecified (ICD-10) 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81 - Other malaise (ICD-10) Physical debility ?R53.81 - Other malaise (ICD-10) Peripheral edema (05/12/10) ?R60.9 - Edema, unspecified (ICD-10) Osteopenia (05/26/11) ?M85.80 - Other specified disorders of bone density and structure, unspecified site (ICD-10) Nonspecific colitis ?K52.9 - Noninfective gastroenteritis and colitis, unspecified (ICD-10) Long-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 - Immunodeficiency due to drugs (ICD-10) ?T38.0X5A - Adverse effect of glucocorticoids and synthetic analogues, initial encounter (ICD-10) ?Z79.52 - toilet attendant (current) use of systemic steroids (ICD-10) Hypokalemia ?E87.6 - Hypokalemia (ICD-10) Hypertension (08/16/12) ?I10 - Essential (primary) hypertension (ICD-10) Hyperlipidemia ?E78.5 - Hyperlipidemia, unspecified (ICD-10) High C-reactive protein ?R79.82 - Elevated C-reactive protein (CRP) (ICD-10) Health care directive on file (07/05/15) ?Z78.9 - Other specified health status (ICD-10) Gastroesophageal reflux disease (04/11/10) ?K21.9 - Gastro-esophageal reflux disease without esophagitis (ICD-10) Dilated cardiomyopathy (05/12/10) ?I42.0 - Dilated cardiomyopathy (ICD-10) Dilated bile duct ?K83.8 - Other specified diseases of biliary tract (ICD-10) Depression (08/16/12) ?F32.A - Depression, unspecified (ICD-10) Constipation ?K59.00 - Constipation, unspecified (ICD-10) Colitis ?K52.9 - Noninfective gastroenteritis and colitis, unspecified (ICD-10) Chronic pain syndrome ?G89.4 - Chronic pain syndrome (ICD-10) Chronic pain ?G89.29 - Other chronic pain (ICD-10) Cellulitis ?L03.90 - Cellulitis, unspecified (ICD-10) Anxiety (04/11/10) ?F41.9 - Anxiety disorder, unspecified (ICD-10) Anticoagulation goal of INR 2 to 3 ?Z51.81 - Encounter for therapeutic drug level monitoring (ICD-10) ?Z79.01 - toilet attendant (current) use of anticoagulants (ICD-10) Abnormal liver function tests ?R79.89 - Other specified abnormal findings of blood chemistry (ICD-10) Long-term (current) use of anticoagulants, INR goal 2.0-3.0 ?Z79.01 - toilet attendant (current) use of anticoagulants (ICD-10) Knee osteoarthritis ?M17.10 - Unilateral primary osteoarthritis, unspecified knee (ICD-10) POLST (Physician Orders for Life-Sustaining Treatment) ?Z78.9 - Other specified health status (ICD-10) Irritation of right ear ?H93.8X1 - Other specified disorders of right ear (ICD-10) History of pulmonary embolism (2017) ?Z86.711 - Personal history of pulmonary embolism (ICD-10) History of peptic ulcer ?Z87.11 - Personal history of peptic ulcer disease (ICD-10) History of deep vein thrombosis (DVT) of lower extremity (2017) ?Z86.718 - Personal history of other venous thrombosis and embolism (ICD-10) Head injury with loss of consciousness ?S06.9X9A - Unspecified intracranial injury with loss of consciousness of unspecified duration, initial encounter (ICD-10) Surgical History S/P foot surgery, right (08/28/14) ?Z98.890 - Other specified postprocedural states (ICD-10) 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) ?Z96.619 - Presence of unspecified artificial shoulder joint (ICD-10) Status post lumbar spinal fusion (04/11/10) ?Z98.1 - Arthrodesis status (ICD-10) Status post cervical spinal arthrodesis (09/2017) ?Z98.1 - Arthrodesis status (ICD-10) History of total hip replacement (05/12/10) ?Z96.649 - Presence of unspecified artificial hip joint (ICD-10) History of left knee replacement (05/12/10) ?Z96.652 - Presence of left artificial knee joint (ICD-10) History of hysterectomy (04/11/10) ?Z90.710 - Acquired absence of both cervix and uterus (ICD-10) History of colonoscopy (05/18/19) ?Z98.890 - Other specified postprocedural states (ICD-10) History of cholecystectomy (05/12/10) ?Z90.49 - Acquired absence of other specified parts of digestive tract (ICD-10) Family History Brother Coronary artery disease Father Cancer Social History (Updated 09/04/23 @ 22:56 by Liliana Talavera MD) Narrative: Patient lives at [facility], independent living at [facility]. She is . 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 Her daughter, Giselle, lives in the area. Code status is DNR/DNI. Healthcare power of corporate attorney is her daughter Giselle from [place]. She quit smoking in 1996. Has been chewing nicotine gum since then. She says she chews pieces constantly throughout the day and is never without a piece in her mouth. She does not drink alcohol. What is your current living situation?: I presently have a place to live Problems where you live: no known problems Problems where you live details: no known problems In the past 12 months, utilities in danger of being shut off: no In past 12 months, lack of transportation kept you from medical appts, meetings, work, or getting things needed for daily living: no In the past 12 mos, have been you worried that your food would run out before you had money to buy more?: never true In the past 12 mos, the food you bought just didn't last and you didn't have money to buy more?: never true Highest level of school completed/degree received: 12th grade, no diploma Smoking Status: Never smoker Second hand tobacco smoke exposure: No How often do you have a drink containing alcohol: never How often do you have six or more drinks on one occasion: Never AUDIT-C Alcohol total score: 0 Non-prescribed substance use: denies use Caffeine: Yes (4-5 cups daily) How often does anyone, including family, friends and others, physically hurt you: never How often does anyone, including family, friends and others, insult or talk down to you: never How often does anyone, including family, friends and others, threaten you with harm: never How often does anyone, including family, friends and others, scream or curse at you: never Little interest or pleasure in doing things: several days Feeling down, depressed, or hopeless: more than half the days service: No Exam Narrative: Exam Narrative: General: Mild distress, laying comfortably. She is nontoxic in appearing HEENT: Oral mucosa moist, pupils equal round reactive to light Neck: Supple full range of motion Lungs: Diminished breath sounds but clear Heart: Irregular irregular, tachycardia Abdomen: Bowel sounds present, soft nontender Muscle skeletal: Circumferential erythema just below the ankles bilaterally extends to just below the knees. Area is tender to palpation, warm to touch. Plus two pitting edema. CMS intact. Neuro: Alert awake and oriented x3 Const: Vital Signs, click to edit/add: Vital Signs - 24 hr 10/06/23 09:14 10/06/23 09:15 10/06/23 09:19 Temperature 98.7 F Pulse Rate 168 H Pulse Rate [Right Pulse Oximeter] 158 H Respiratory Rate 22 Blood Pressure 107/68 Blood Pressure [Ri ght Upper Arm] 107/68 Pulse Oximetry 96 97 Oxygen Delivery Me od Room Air 10/06/23 09:40 10/06/23 09:41 10/06/23 09:45 Temperature Pulse Rate 150 H 156 H 155 H Pulse Rate [Right Pulse Oximeter] Respiratory Rate Blood Pressure 115/82 Blood Pressure [Ri ght Upper Arm] Pulse Oximetry 97 95 97 Oxygen Delivery Co thod 10/06/23 10:00 10/06/23 10:01 10/06/23 10:15 Temperature Pulse Rate 159 H 152 H 158 H Pulse Rate [Right Pulse Oximeter] Respiratory Rate Blood Pressure 123/87 Blood Pressure [Ri ght Upper Arm] Pulse Oximetry 95 97 97 Oxygen Delivery Co thod 10/06/23 10:16 10/06/23 10:30 10/06/23 10:34 Temperature Pulse Rate 150 H 150 H 147 H Pulse Rate [Right Pulse Oximeter] Respiratory Rate Blood Pressure 116/84 Blood Pressure [Ri ght Upper Arm] Pulse Oximetry 96 96 [facility] 10/06/23 10:45 10/06/23 11:00 10/06/23 11:04 Temperature Pulse Rate 148 H 117 H 126 H Pulse Rate [Right Pulse Oximeter] Respiratory Rate Blood Pressure Blood Pressure [Ri ght Upper Arm] Pulse Oximetry 97 96 95 Oxygen Delivery Me thod 10/06/23 11:09 10/06/23 11:15 10/06/23 11:30 Temperature Pulse Rate 125 H 128 H 126 H Pulse Rate [Right Pulse Oximeter] Respiratory Rate Blood Pressure 138/79 Blood Pressure [Ri ght Upper Arm] Pulse Oximetry 97 94 96 Oxygen Delivery Me thod 10/06/23 11:31 10/06/23 11:32 10/06/23 11:45 Temperature Pulse Rate 129 H 124 H 121 H Pulse Rate [Right Pulse Oximeter] Respiratory Rate Blood Pressure 118/67 Blood Pressure [Ri ght Upper Arm] Pulse Oximetry 92 97 95 Oxygen Delivery Me thod 10/06/23 11:46 10/06/23 11:57 Temperature Pulse Rate 128 H Pulse Rate [Right Pulse Oximeter] Respiratory Rate 12 Blood Pressure 130/65 Blood Pressure [Ri ght Upper Arm] Pulse Oximetry 96 Oxygen Delivery Me thod Course Course ED Course: AIDET performed. Vitals show tachycardia, he blood pressure stable, O2 sats within normal limits, no tachypnea, workup will include IV peripheral, 0.9 normal saline bolus, previous echo 2021 showed EF 60-65%, will obtain lactate, blood cultures x2, CBC, CRP and CMP, EKG. Differential diagnosis include but not limited to traumatic rhabdomyolysis, sepsis, cellulitis, dermatitis, worsening heart failure as well as all etiologies. Reevaluation(s) Time of Reevaluation #1: 09:48 Reevaluation #1: Spoke with Dr. Garcia hospitalist, he will accept patient to an med surgery floor bed, his recommendations were to give 100 mg IV hydrocortisone for her history of adrenal insufficiency, 500 mL bolus of 0.9 point normal saline. EKG showed atrial fibrillation with RVR, rate 142, rightward axis, anterior infarct age indeterminate seen on previous, marked ST abnormality possible inferior subendocardial injury this was seen on previous, no acute changes compared to pre. Imaging showed mild pulmonary edema trace left pleural effusion, CBC showed leukocytosis with a left shift, lactate mildly elevated 2.0, CRP elevated at 29.2, point of care troponin 0.11, BNP pending, urinalysis showed no signs of infection. Time of Reevaluation #2: 11:04 Reevaluation #2: Spoke again with Bola Garcia MD, hospitalist, he was updated on further imaging and lab results, he accepts care of the patient to [facility] surgery telemetry floor bed, she was given the above care and did well. Heart rate improved after above care given specific us with patient and daughter and they were in agreement this plan. Time of Reevaluation #3: 11:59 Vital Signs Vital signs: Initial Vital Signs Blood Pressure 107/68 10/06/23 09:14 Blood Pressure Mean 81 10/06/23 09:14 Vital Signs Blood Pressure 107/68 10/06/23 09:14 Temperature 98.7 F 10/06/23 09:19 Pulse Rate 128 H 10/06/23 11:46 Respiratory Rate 12 10/06/23 11:57 Blood Pressure 130/65 10/06/23 11:46 Pulse Oximetry 96 10/06/23 11:46 Oxygen Delivery Method Room Air 10/06/23 09:19 Medications Administered Medications: Discontinued Medications Generic Name Dose Route Start Last Admin Trade Name Freq PRN Reason Stop Dose Admin Hydrocortisone Sodium Succinate 100 mg 10/06/23 10:24 10/06/23 11:09 Hydrocortisone Sod Succinate 50 Mg/Ml Inj IVP 10/06/23 10:25 100 mg ONCE ONE Administration Sodium Chloride 1,000 mls @ 1,000 mls/hr 10/06/23 09:40 10/06/23 11:10 0.9 % Sodium Chloride 1000 Ml IV 10/06/23 10:39 0 mls/hr .Q1H LUIS Infusion Ceftriaxone Sodium 2 gm/ 100 mls @ 200 mls/hr 10/06/23 10:10 10/06/23 11:56 Sodium Chloride IVPB 10/06/23 10:11 Infused ONCE ONE Infusion Medical Decision Making Lab Data Labs: Lab Results 10/06/23 10/06/23 10/06/23 Range/Units 09:39 09:45 09:55 WBC 12.35 H (4.50-11.00) K/uL RBC 4.57 (4.00-5.20) m/uL Hgb 12.2 (12.0-16.0) gm/dL Hct 39.7 (33.0-51.0) % MCV 87 (80-100) fL MCH 27 (26-34) pg MCHC 31 L (32-36) gm/dL RDW Coeff of Rolo 15.5 (11.5-15.5) % Plt Count 454 H (140-440) K/uL Neut % (Auto) 75.8 H (42.0-72.0) % Lymph % (Auto) 11.2 L (20-44) % Sutton % (Auto) 11.7 H (0.0-11.0) % Eos % (Auto) 0.7 (0.0-7.0) % Baso % (Auto) 0.4 (0.0-3.0) % Neut # (Auto) 9.40 H (1.7-7.0) K/uL Lymph # (Auto) 1.40 (0.90-2.90) K/uL Sutton # (Auto) 1.40 H (0.00-0.90) K/UL Eos # (Auto) 0.10 (0.00-0.50) K/uL Baso # (Auto) 0.00 (0.00-0.30) K/uL Abs Immat Gran (auto) 0.00 (0.00-0.30) K/uL Imm/Tot Granulo (auto) 0.2 % Sodium 137 (135-149) mmol/L Potassium 4.2 (3.6-5.1) mmol/L Chloride 105 (96-114) mmol/L Carbon Dioxide 20 (20-32) mmol/L Anion Gap 12 (7-15) mEq/L BUN 21 (7-30) mg/dL Creatinine 0.7 (0.5-1.5) mg/dL Estimated Creat Clear 40.16 Estimated GFR 87 ml/min Glucose 52 L (60-115) mg/dL Lactate 2.0 H (0.5-1.9) mmol/L Calcium 9.1 (8.4-10.6) mg/dL Total Bilirubin 1.0 (0.1-1.5) mg/dL AST 27 (12-35) U/L ALT 16 (4-35) U/L Alkaline Phosphatase 103 (40-150) U/L C-Reactive Protein 29.2 H (0.5-1.0) mg/dL NT-Pro-B Natriuret Pep 1540 pg/mL Total Protein 7.4 (6.0-8.3) g/dL Albumin 4.1 (3.3-5.0) g/dL Urine Color (Yellow) Urine Appearance (Clear) Urine pH (5.0-8.5) Ur Specific [place] (1.000-1.030) Urine Protein (Negative) Urine Glucose (UA) (Negative) Urine Ketones (Negative) Urine Blood (Negative) Urine Nitrite (Negative) Urine Bilirubin (Negative) Urine Urobilinogen (0.2-1.0) Ur Leukocyte Esterase (Negative) Urine RBC (0-2) Urine WBC (0-5) Ur Squamous Epith Cells (None-Few) Urine Bacteria (None) Fine Granular Casts (None) Lab Acknowledgement POC Troponin I 0.11 H (0.01-0.04) ng/ml 10/06/23 10/06/23 Range/Units 10:09 10:18 WBC (4.50-11.00) K/uL RBC (4.00-5.20) m/uL Hgb (12.0-16.0) gm/dL Hct (33.0-51.0) % MCV (80-100) fL MCH (26-34) pg MCHC (32-36) gm/dL RDW Coeff of Rolo (11.5-15.5) % Plt Count (140-440) K/uL Neut % (Auto) (42.0-72.0) % Lymph % (Auto) (20-44) % Sutton % (Auto) (0.0-11.0) % Eos % (Auto) (0.0-7.0) % Baso % (Auto) (0.0-3.0) % Neut # (Auto) (1.7-7.0) K/uL Lymph # (Auto) (0.90-2.90) K/uL Sutton # (Auto) (0.00-0.90) K/UL Eos # (Auto) (0.00-0.50) K/uL Baso # (Auto) (0.00-0.30) K/uL Abs Immat Gran (auto) (0.00-0.30) K/uL Imm/Tot Granulo (auto) % Sodium (135-149) mmol/L Potassium (3.6-5.1) mmol/L Chloride (96-114) mmol/L Carbon Dioxide (20-32) mmol/L Anion Gap (7-15) mEq/L BUN (7-30) mg/dL Creatinine (0.5-1.5) mg/dL Estimated Creat Clear Estimated GFR ml/min Glucose (60-115) mg/dL Lactate (0.5-1.9) mmol/L Calcium (8.4-10.6) mg/dL Total Bilirubin (0.1-1.5) mg/dL AST (12-35) U/L ALT (4-35) U/L Alkaline Phosphatase (40-150) U/L C-Reactive Protein (0.5-1.0) mg/dL NT-Pro-B Natriuret Pep pg/mL Total Protein (6.0-8.3) g/dL Albumin (3.3-5.0) g/dL Urine Color Yellow (Yellow) Urine Appearance Clear (Clear) Urine pH 6.0 (5.0-8.5) Ur Specific [place] 1.020 (1.000-1.030) Urine Protein Negative (Negative) Urine Glucose (UA) Negative (Negative) Urine Ketones 1+ A (Negative) Urine Blood Negative (Negative) Urine Nitrite Negative (Negative) Urine Bilirubin Negative (Negative) Urine Urobilinogen 0.2 (0.2-1.0) Ur Leukocyte Esterase Negative (Negative) Urine RBC 2-5 A (0-2) Urine WBC 2-5 (0-5) Ur Squamous Epith Cells Few (None-Few) Urine Bacteria None (None) Fine Granular Casts Few A (None) Lab Acknowledgement Test Added POC Troponin I (0.01-0.04) ng/ml Discharge Plan Discharge Clinical Impression: Heart failure, Bilateral cellulitis of lower leg, Chronic anticoagulation, Atrial fibrillation with RVR Patient Disposition: Admitted As Inpatient
[2023-10-06 10:00] LABS: Basophils Percent Auto 0.4 % (0.0-3.0); Eosinophils Percent Auto 0.7 % (0.0-7.0); Hematocrit 39.7 % (33.0-51.0); Hemoglobin* 12.2 gm/dL (12.0-16.0); Immature Granulocytes Pct Auto 0.2 %; Lymphocytes Percent Auto 11.2 % (20-44); Mean Corpuscular HGB Conc 31 gm/dL (32-36); Mean Corpuscular Hemoglobin 27 pg (26-34); Mean Corpuscular Volume 87 fL (80-100); Monocytes Percent Auto 11.7 % (0.0-11.0); Neutrophils Percent Auto 75.8 % (42.0-72.0); Platelet Count* 454 K/uL (140-440); RDW Coefficient of Variation % 15.5 % (11.5-15.5); Red Blood Count 4.57 m/uL (4.00-5.20); White Blood Count* 12.35 K/uL (4.50-11.00)
[2023-10-06 10:10] LABS: Troponin, Point-of-Care* 0.11 ng/ml (0.01-0.04)
[2023-10-06 10:17] LABS: Slide Review Reflex No
[2023-10-06] MEDS: 0.9 % SODIUM CHLORIDE 1000 ml 1,000 ML IV (10:20)
[2023-10-06 10:24] LABS: Albumin* 4.1 g/dL (3.3-5.0); Chloride* 105 mmol/L (96-114); Sodium* 137 mmol/L (135-149)
[2023-10-06 10:25] LABS: Potassium* 4.2 mmol/L (3.6-5.1)
--- OUTSIDE RECORDS SUMMARY | 2023-10-06 10:25 | XMS_ITS | Continuity of Care Document ---
Author Organization [facility] Address [address] [place] [address] Phone Care Team Providers Care Cattle Shipper Name Role Phone Chase Snowden MD Unavailable [...] Seg Office/Outpatient Visit,Est, Mod 2017 Office/Outpatient Visit,New, [facility] 2017 Office/Outpatient Visit,Est, Mod 2011 Postop Followup Visit Remove Lumbar Spine Lamina, 1 Seg Pa Assist Remove Lumbar Spine Lamina, 1 Seg Office/Outpatient Visit,New, Mod 2011 X-Ray Exam Lwr Spine, Min 4 Views Advance Directives Directive Yes / No Effective Date File Name No Information Encounters Encounter Description Practice Location Reason(s) For Visit Diagnoses Date Provider Providers Copied on Encounter [facility], [address] [place] [address], [id number], [place] tel:[phone] No Information 1 Sp Stone. [facility] [place], [address] [place] [address], [id number], . [phone] [facility], [address] [place] [address], [id number], [place] tel:[phone] [facility] Arthrodesis status 1 No Information Office/Outpa tient Visit,Est, Mod [facility], [address] [place] [address], [id number], [place] tel:[phone] [facility] [place] No Information 1 No Information Referring Provider: Prakash Mccauley, [facility] [address] [place], [address]. tel:[phone] Office/Outpa tient Visit,Est, Mod [facility], [address] [place] [address], [id number], [place] tel:[phone] [facility] Arthrodesis status 0 Sp Stone. [facility] [place], [address] [place] [address], [id number], [place]. tel:[phone] Referring Provider: Prakash Mccauley, [facility] [address] [place], [address]. tel:[phone] Office/Outpa tient Visit,Est, Mod [facility], [address] [place] [address], [id number], [place] tel:[phone] [facility] Kyphosis 0 Sp Stone. [facility] [place], [address] [place] [address], [id number], [place]. tel:[phone] Referring Provider: Prakash Mccauley, [facility] [address] [place], [address]. tel:[phone] Office/Outpa tient Visit,Est, Low [facility], [address], [place], [id number], [place] tel:[phone] [facility] Arthrodesis status Sp Stone. [facility] [place], [address] [place], [address], [id number], [place]. tel:[phone] Referring Provider: Prakash Mccauley, [facility] [address] [place], [address]. tel:[phone] Office/Outpa tient Visit,Est, Low [facility], [address], [place], [place], [id number], [place] tel:[phone] [facility] Encounter for other specified surgical aftercare Sp Stone. [facility] [place], [address] [place] [address], [address], [id number], [place]. tel:[phone] Referring Provider: Prakash Mccauley, [facility] [address] [place], [address]. tel:[phone] [facility], [address] [place] [address], [id number], [place] tel:[phone] [facility] Encounter for other specified surgical aftercare Sp Stone. [facility] [place], [address] [place], [address], [id number], [place]. tel:[phone] Referring Provider: Prakash Mccauley, [facility] [address] [place], [address]. tel:[phone] [facility], [address], [place], [id number], [place] tel:[phone] [facility] Encounter for other specified surgical aftercare Sp Stone. [facility] [place], [address], [address], [id number], [place]. tel:[phone] Referring Provider: Prakash Mccauley, [facility] [address] [place], [address]. tel:[phone] [facility], [address], [place], [place], [id number], [place] tel:[phone] [facility] No Information Chris Meneses. [facility], [address], [place], [address], [place]. tel:[phone] Referring Provider: Prakash Mccauley, [facility] [address] [place], [address]. tel:[phone] [facility], [address], [place], [place], [id number], [place] tel:[phone] [facility] No Information Sp Stone. [facility] [place], [address] [place] [address], Ernesto [address] [place] [address], [id number], [place]. tel:[phone] Referring Provider: Prakash Mccauley, [facility] [address] [place], [address]. tel:[phone] Office/Outpa tient Visit,Est, Mod [facility], [address] [place] [address], [id number], [place] tel:[phone] [facility] [place] Spinal stenosis, cervical region Sp Stone. [facility] [place], [address], [facility] [address], [place], [place], [id number], [place]. tel:[phone] Referring Provider: Prakash Mccauley, [facility] [address] [place], [address]. tel:[phone] Office/Outpa tient Visit,New, Mod [facility], [address], [place], [id number], [place] tel:[phone] [facility] Postlaminect jasmine kyphosisSpin al stenosis, cervical regionArthro desis status No Information Referring Provider: Prakash Mccauley, [facility] [address] [place], [address]. tel:[phone] Office/Outpa tient Visit,Est, Mod Z [facility], [address], [place], [address], [place] tel:[phone] [facility] No Information 2 No Information Referring Provider: Prakash Mccauley, [facility] [address] [place], [address]. tel:[phone] Z [facility], [address], [place], [address], [place] tel:[phone] [facility] No Information 2 No Information Referring Provider: Prakash Mccauley, [facility] [address] [place], [address]. tel:[phone] Z [facility], [address] [facility] [address], [place], [address], [place] tel:[phone] [facility] No Information No Information Referring Provider: Prakash Mccauley, [facility] [address] [place], [address]. tel:[phone] Z [facility], [address] [facility] [address], [place], [address], [place] tel:[phone] [facility] LUPUS ERYTHEMATOSU SOsteopeniaA nxietyGERDCA TARACT NOS No Information Office/Outpa tient Visit,New, Mod Z [facility], [address], [place], [address], [place] tel:[phone] [facility] No Information No Information Referring Provider: Prakash Mccauley, [facility] [address] [place], [address]. tel:[phone] Family History Family Member Type Diagnosis Age At Onset Mother Problem (finding) hypothyroidism Father Problem (finding) Cancer, unknown Mother Problem (finding) hypertension Problem (finding) Family history of prost ate cancer Payers Payer name Insurance type Covered democrat ID Avaa angus(s) [facility] [id number] Medicare [facility] [id number] 1 Social History Type Description Quantity Date [...]
[2023-10-06 10:26] LABS: Appearance Urine Clear (Clear); Bilirubin Urine Negative (Negative); Blood Urine Negative (Negative); Color Urine Yellow (Yellow); Glucose Urine Negative (Negative); Ketones Urine 1+ (Negative); Leukocyte Esterase Urine Negative (Negative); Nitrite Urine Negative (Negative); Protein Urine Negative (Negative); Urobilinogen Urine 0.2 (0.2-1.0)
--- OUTSIDE RECORDS SUMMARY | 2023-10-06 10:26 | XMS_ITS | Clinical Summary ---
Author Organization [facility] Address [place], [place] [address] Care Team Providers Care Microfilm Duplicating Unit Supervisor Name Role Phone Prakash Moore MD Primary Care Provider [phone] Allergies Active Allergy Reactions Criticality Noted Date [...] Take 400 mg by mouth once daily. Active ascorbic acid chewable (VITAMIN C) 500 mg tablet Take 500 mg by mouth once daily. Active MULTIVITS W-FE,OTHER MIN (PEDIATRIC PTJHAFAC-[id number]-QOD ORAL) Take by mouth once daily. Active losartan (COZAAR) 25 mg tablet Take 25 mg by mouth once daily. Active metoprolol succinate (TOPROL XL) 25 mg Sustained-Release tablet Take 25 mg by mouth once daily. Active melatonin 3 mg tablet Take 3 mg by mouth at bedtime. Active nicotine (NICORETTE) 2 mg gum Take 2 mg by mouth every hour while awake as needed for Nicotine Craving. Active flaxseed 1,000 mg cap Take 1 Cap by mouth once daily. Active warfarin (COUMADIN) 3 mg tablet Take 3-6 mg by mouth once daily. Active gabapentin (NEURONTIN) 400 mg capsule Take 1,200 mg by mouth 2 times daily. Active potassium chloride (KLOR-CON M20) 20 mEq Extended-Release tablet Take 20 mEq by mouth once daily with a meal. Active omeprazole (PRILOSEC) 20 mg Delayed-Release capsule Take 20 mg by mouth once daily before a meal. Active predniSONE (DELTASONE) 1 mg tablet Take 7 mg by mouth once daily with a meal. Active simvastatin (ZOCOR) 20 mg tablet Take 20 mg by mouth at bedtime. Active hydroxychloroquine (PLAQUENIL) 200 mg tabletIndications:O ther [...] 4000 mg in 24 hrs. 80 tablet 09/27/2017 Active buPROPion (WELLBUTRIN XL) 150 mg Extended-Release tablet Take 1 Tablet by mouth once daily. 12/07/2018 Active aspirin chewable 81 mg chewable tablet Chew 81 mg by mouth once daily. chew and swallow 06/27/2021 Active calcium with vitamin D3 (OS-SUZETTE 500 + D) tablet Twice A Day Active famciclovir (FAMVIR) 500 mg tablet 02/11/2021 Active methotrexate (RHEUMATREX) 2.5 mg tablet 08/26/2021 Active levothyroxine (SYNTHROID) 25 mcg tablet Daily 04/23/2020 Active sennosides (SENNA) 8.6 mg tablet Daily 08/25/2021 Active fluconazole (DIFLUCAN) 150 mg tablet Take 150 mg by mouth once weekly. 05/17/2023 Active loratadine (CLARITIN) 10 mg tablet Take 10 mg by mouth once daily. Active LORazepam (ATIVAN) 0.5 mg tab Take 0.5 mg by mouth. 04/06/2023 Active mirtazapine (REMERON) 7.5 mg tablet Take 7.5 mg by mouth at bedtime. 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 Office Visit [facility] [address] [place] [address] Saran Arias, DPM Follow Up (Right foot, ulcer check) 07/14/2023 Travel from Last 3 Months Immunizations Name Administration [...] Sign Reading Time Taken Comments Blood Pressure 110/69 07/14/2023 2:35 PM [employer] Pulse 77 07/14/2023 2:35 PM [employer] Temperature 36.5 ??C (97.7 ??F) 07/14/2023 2:35 PM CS T Respiratory Rate 16 05/24/2020 3:38 PM [employer]PER[employer] Oxygen Saturation 98% 07/14/2023 2:35 PM [employer] Inhaled Oxygen Concentration - - Weight 63.5 kg (140 lb) 05/24/2020 3:38 PM [employer] Height 143.5 cm (4' 8.5) 09/21/2017 4:21 PM CDT Body Mass Index 30.83 09/21/2017 4:21 PM CDT Plan of Treatment Health Maintenance Due Date Last Done Comments COVID-19 vaccine series (#1) 1948 Pneumococcal series for age 65+ (1 of 2 - PCV) 949 Tdap 1954 Depression screening for age 12+ 1955 BMI (ht and wt on same day) for age 18+ 1961 Zoster (shingles) series for age 50+ (1 of 2) 05/01/19 62 Tetanus booster 1963 DEXA/DXA scan for age 65+ 2008 Medicare Wellness for age 65+ 2008 Influenza for age 65+ 01/09/2024 02/12/2011 Medical Devices Implanted Type Area Duralumin Mechanic Device Identifier Shelf Expiration Date Model / Serial / Lot [id number] ne 1-4mm 30cc Medtronic Chips Canclls Freeze Dried Implanted:Qty: 1 on 09/23/2017 by Chase Snowden MD at [facility] Explanted:at [facility] (Quantity not on file) N/A: Spine Medtronic Spine/Ortho 09/30/2021 [id number] / [id number] / Plate Ti Occipital 50mm Implanted:Qty: 1 on 09/23/2017 by Chase Snowden MD at [facility] N/A: Spine 04.161.001 / / Description:PLATE TI OCCIPIT AL 50MM Screw Occipital Ti 4.5 X 8 Implanted:Qty: 1 on 09/23/2017 by Chase Snowden MD at [facility] N/A: Spine 04.601.108 / / Description:SCREW OCCIPITAL TI 4.5 X 8 Screw Occipital Ti 4.5 X 10 Implanted:Qty: 1 on 09/23/2017 by Cahse Snowden MD at [facility] N/A: Spine 04.601.110 / / Description:SCREW OCCIPITAL TI 4.5 X 10 Screw Cerv Post 4.5x14mm Synapse Va Canncls Titnm Implanted:Qty: 1 on 09/23/2017 by Chase Snowden MD at [facility] N/A: Spine 04.614.214 / / Description:SCREW CERV POST 4.5X14MM SYNAPSE VA CANNCLS TITNM Mushtaq Pre-Bent 3.7l529cy Titnm - [id number] Implanted:Qty: 2 on 09/23/2017 by Chase Snowden MD at [facility] N/A: Spine J And J Depuy Spine 04.161.032 # / / Set Screw Cerv Axon - [id number] Implanted:Qty: 2 on 09/23/2017 by Chase Snowden MD at [facility] N/A: Spine J And J Depuy Spine 406.104# / / Screw Cerv Post 4x10mm Synapseva Canncls Titnm - [id number] Implanted:Qty: 1 on 09/23/2017 by Chase Snowden MD at [facility] N/A: Spine J And J Depuy Spine 04.614.110 # / / Screw Cerv Post 4x12mm Synapseva Canncls Titnm - [id number] Implanted:Qty: 2 on 09/23/2017 by Chase Snowden MD at [facility] N/A: Spine J And J Depuy Spine 04.614.112 # / / Screw Cerv Post 4.5x10mm Synapse Va Canncls Titnm - [id number] Implanted:Qty: 1 on 09/23/2017 by Chase Snowden MD at [facility] N/A: Spine J And J Depuy Spine 04.614.210 # / / Screw Cerv Post 4.5x26mm Synapse Va Canncls Titnm - [id number] Implanted:Qty: 1 on 09/23/2017 by Chase Snowden MD at [facility] N/A: Spine J And J Depuy Spine 04.614.226 # / / Screw Cerv Post 4.5x28mm Synapse Va Canncls Titnm - [id number] Implanted:Qty: 3 on 09/23/2017 by Chase Snowden MD at [facility] N/A: Spine J And J Depuy Spine 04.614.228 # / / Set Screw Cerv Synapse - [id number] Implanted:Qty: 9 on 09/23/2017 by Chase Snowden MD at [facility] N/A: Spine J And J Depuy Spine 04.614.508 # / / Advance Directives * Full Code (Latest Code Status on File) Date Activated Date Inactivated Comments 09/23/2017 7:47 PM 09/28/2017 12:30 PM Care Teams Microfilm Duplicating Unit Supervisor Relationship Specialty Start Date End Date Prakash Moore MD [address] [phone] PCP - General Family Practice 09/20/17
--- OUTSIDE RECORDS SUMMARY | 2023-10-06 10:26 | XMS_ITS | Encounter Summary ---
Author Organization [facility] Address [address] [place] [address] Care Team Providers Care Assembly Adjuster Name Role Phone Elsewhere, Pcp Primary Care Provider Unavailabl e Reason for Visit * Reason Comments Med Refill Encounter Details Date Type Department Care Team (Late st Contact Info) Description 08/30/2023 Refill Division of Rheumatology in [place], [place] [address] [place] [phone] Brittany Jauregui, EVE, C.N.P., M.S. [address] [place] [address] Med Refill Social History Tobacco Use Types Packs/Day Years Used Date Smoking Tobacco: Former Cigarettes Q uit: 1996 Smokeless Tobacco: Never Comments:Nicotine [...] any clubs o r organizations such as jewish groups, unions, fraternal or athletic groups, or [...] Master's degree (e.g., MA, MS, Sariah, MEd, HEAT TREAT INSPECTOR, OFE) 12/22/2018 Sex and Gender Information Value Date Recorded Sex Assigned at Female 11/21/2021 2:31 PM CDT Gender Identity Female 11/22/2018 10:59 PM CDT Sexual Orientation Straight 11/22/2018 10 :59 PM CDT documented as of this encounter Miscellaneous Notes * Telephone Encounter - Xenia Boss, R.NCorazon - 09/06/2023 3:44 PM CDT Prescription renewal request for prednisone received from pharmacy. HISTORY OF PRESENT ILLNESS Last Rheum / VASC visit: 10/16/2022 with [place] APRN, NET SQL DEVELOPER Future office visit: ordered, not yet scheduled Last monitoring None Needed: Not required for medication renewal requested. Prescription request matches current plan of care. Prescription request does not match a current prescription in the Medication List. Exclusion criteria: None (If an alert appeared, it was determined to be an approved exception) ASSESSMENT/PLAN Prescription request requested refill denied . Call placed to [facility] to ask about requested refill. The pharmacist stated that the patients Prednisone has been prescribed by a local provider in [place], Dr. Prakash Moore and that the last prescribed dose from him was for 10 mg tablets. Will update provider. documented in this encounter Plan of Treatment Not on file documented as of this encounter Visit Diagnoses Diagnosis Lupus Systemic Erythematosus (HCC) Arthritis Inflammatory (HCC) documented in this encounter Additional Health Concerns Infection Onset Date Last Indicated Resolved Time Protective Environment 08/17/2022 08/17/2022 documented as of this encounter Care Teams Assembly Adjuster Relationship Specialty Start Date End Date Elsewhere, Pcp PCP - General Internal Medicine 11/20/21 documented as of this encounter
--- OUTSIDE RECORDS SUMMARY | 2023-10-06 10:26 | XMS_ITS | Clinical Summary ---
Author Organization [facility] Address [address] [place] [address] Care Team Providers Care Psychology Lecturer Name Role Phone Elsewhere, Pcp Primary Care Provider Unavailabl e Source Comments Patient records contain information from all sites at [facility]. For routine questions regarding patient records, call [phone] during business hours, M-F 8:00 AM - 5:00 PM Central Time. Record requests for emergency care only can be directed to [phone] at any time.[facility] Allergies Active Allergy Reactions Criticality Noted [...] mg in 24 hours from all sources 06/17/2016 Active calcium carbonate/vitamin D3 (CALCIUM 600 + D,3, ORAL) Take 1 capsule by mouth 2 (two) times a day. Capsule supplement 04/08/2016 Active famciclovir (FAMVIR) 500 mg tablet Take 1 tablet by mouth as needed. As needed for cold sores 06/12/2016 Active flaxseed oil 1,000 mg capsule Take 1 capsule by mouth daily. supplement 04/08/2016 Active furosemide (LASIX) 40 mg tablet Take 1 tablet by mouth every morning. diuretic 06/12/2016 Active gabapentin (NEURONTIN) 400 mg capsule Take 3 capsules by mouth 2 (two) times a day. Neuropathic pain 04/08/2016 Active losartan (COZAAR) 25 mg tablet Take 1 tablet by mouth daily. 09/17/2016 Active magnesium oxide (MAG-OX) 400 mg tablet Take 1 tablet by mouth daily. supplement 04/08/2016 Active melatonin 3 mg tablet Take 1 capsule by mouth at bedtime as needed. Needed for sleep 04/08/2016 Active metoprolol succinate (TOPROL-XL) 25 mg 24 hr tablet Take 1 tablet by mouth daily. Sustained release Heart failure 07/21/2016 Active multivitamin-iron tablet Take 1 tablet by mouth daily. Dietary supplement 04/08/2016 Active nicotine polacrilex (NICORETTE) 2 mg gum Apply to cheek as needed. Smoking cessation 04/08/2016 Active nystatin (NYSTOP) 100,000 unit/gram powder Apply topically as needed. Skin irritation 04/08/2016 Active omeprazole (PriLOSEC) [address] capsule Take 1-2 capsules by mouth every morning. Enteric coated GERD 06/12/2016 Active ascorbic acid, vitamin C, (VITAMIN C) 500 mg tablet Take 1 tablet by mouth daily. supplement 04/08/2016 Active buPROPion XL (WELLBUTRIN XL) 150 mg 24 hr tablet Take 150 mg by mouth daily. 10 12/07/2018 Active HYDROcodone-acetami nophen (NORCO) 5-325 mg per tablet Take 1 tablet by mouth daily. Also has a PRN dose 1 tablet daily 0 11/02/2018 Active levothyroxine (SYNTHROID, LEVOTHROID) 25 mcg tablet 25 mcg daily. 04/23/2020 Active simvastatin (ZOCOR) 20 mg tablet daily. 04/23/2020 Active warfarin (COUMADIN) 3 mg tablet Take 3 mg by mouth as directed. 03/12/2020 Active sennosides (SENOKOT) 8.6 mg tablet Take 8.6 mg by mouth as needed. 08/25/2021 Active loratadine (CLARITIN) 10 mg tablet Take 10 mg by mouth daily. Active syringe with needle (Tuberculin Syringe) 1 [...] by mouth 2 (two) times a day. 07/24/2022 Active nystatin (MYCOSTATIN) 100,000 unit/gram cream 06/03/2022 Active cephalexin (KEFLEX) 500 mg capsule 06/03/2022 Active omeprazole (PriLOSEC) [address] capsule 20 mg. 02/12/2022 Active iron,carbonyl-vitam in C (VITRON-C) 65 mg iron- [address] tablet Take 65 mg of iron by mouth daily. Do not crush or chew. Active hydrOXYchloroQUINE (PLAQUENIL) 200 mg tabletIndications:A rthritis [...] Encounters Date Type Department Care Team Description 08/30/2023 Refill Division of Rheumatology in [place], [place] [address] [place] [address] Brittany Jauregui APRN, C.N.P., M.S. Med Refill from Last 3 Months Immunizations Name Administration [...] often do you attend chur ch or moravian services? 1 to 4 times per year 11/21/2021 Do you belong to any clubs o r organizations such as mormonism groups, unions, fraternal or athletic groups, or [...] Master's degree (e.g., MA, MS, Sariah, MEd, BATON TEACHER, OFE) 12/22/2018 Sex and Gender Information [...] 07/20/2017 07/20/2016, 07/18/2016, 07/18/2016, Additional history exists Depression Screening (Annual PHQ-2) 05/10/2023 Fall Risk Screen (Annual) 05/10/2023 COVID-19 Vaccine (2022-06 4 season) 2023 06/15/2023, 10/22/2022, 03/05/2022, Additional history exists Creatinine Level (Kidney Function Test) 04/27/2024 04/27/2023, [...] this topic Medical Devices Implanted Type Area Irrigation Flume Layer Device Identifier Shelf Expiration Date Model / Serial / Lot Hardware E.G. Pins/Screws/Mushtaq s Hardware e.g. pins/screws /rods Left: Mouth Description:Lower Left x 1 t ooth implant Hardware E.G. Pins/Screws/Mushtaq s Hardware e.g. pins/screws /rods N/A: Mouth Screw Biomet 3.5 Hex Lock 4.75 X 20 - Simmons [id number] Implanted:Qty: 1 on 06/15/2016 Hardware e.g. pins/screws /rods Other/Legacy - See Implant Description BioMet Description:Device Manufactu rer - [employer] Body Location - Other. Left. Device Status Text - [id number]. Conversions - Default Historical Implant Device Implanted:06/15 (Quantity not on file) Hardware e.g. pins/screws /rods Spine Lumbar Description:Body Location - Lumbar. Device Status Text - Hardware. Conversions - Default Historical Implant Device Implanted:06/15 (Quantity not on file) Hardware e.g. pins/screws /rods Neck Description:Body Location - Neck Mid. Device Status Text - Hardware. Conversions - Default Historical Implant Device Implanted:06/15 (Quantity not on file) Hip Implant Right: Hip Description:Body Location - Hip R. Device Status Text - Hip Imp. Conversions - Default Historical Implant Device Implanted:06/15 (Quantity not on file) Knee Implant Left: Knee Description:Body Location - Knee L. Device Status Text - Knee Imp. Biomet Glenospher 36mm Std. - Simmons [id number] Implanted:Qty: 1 on 06/15/2016 Shoulder Implant Other/Legacy - See Implant Description BioMet Description:Device Manufactu rer - Bi[employer] Inc. Body Location - Other. Left. Device Status Text - [id number]. Biomet Hum. Bearing E1 Std 44-36 - Simmons [id number] Implanted:Qty: 1 on 06/15/2016 Shoulder Implant Other/Legacy - See Implant Description BioMet Description:Device Manufactu rer - [employer] Inc. Body Location - Other. Left. Device Status Text - [id number]. Biomet Glenoid Baseplate Mini W Adaptor - Simmons [id number] Implanted:Qty: 1 on 06/15/2016 Shoulder Implant Other/Legacy - See Implant Description BioMet Description:Device Manufactu rer - [employer] Inc. Body Location - Other. Left. Device Status Text - [id number]. Bio. Comp Micro Stem 6mm - Simmons [id number] Implanted:Qty: 1 on 06/15/2016 Shoulder Implant Other/Legacy - See Implant Description BioMet Description:Device Manufactu rer - Bi[employer] Inc. Body Location - Other. Left. Device Status Text - [id number]. Biomet-Screw Central 6.5mm X 20mm - Simmons [id number] Implanted:Qty: 1 on 06/15/2016 Shoulder Implant Other/Legacy - See Implant Description BioMet Description:Device Manufactu rer - Bi[employer] Inc. Body Location - Other. Left. Device Status Text - [id number]. Biomet Hum Tray Comp Rev 44mm Std - Simmons [id number] Implanted:Qty: 1 on 06/15/2016 Shoulder Implant Other/Legacy - See Implant Description BioMet Description:Device Manufactu rer - Bi[employer] Inc. Body Location - Other. Left. Device Status Text - [id number]. Screw Biomet 3.5 Non-Lock 4.75 X 25 - Simmons [id number] Implanted:Qty: 1 on 06/15/2016 Shoulder Implant Other/Legacy - See Implant Description BioMet Description:Device Manufactu rer - Biomet Inc. Body Location - Other. Left. Device Status Text - [id number]. Procedures Procedure Name Priority Date/Time Associated Diagnosis Comments CREATININE WITH EGFR, S/P Routine 04/27/2023 ELECTROLYTE (CHEM 4) PANEL, S/P Routine 07/20/2016 5:51 AM CDT from Last 3 Months or Most Recently Relevant to Health Maintenance Results * Creatinine with Estimated GFR (04/27/2023) EXT Creatinine 0.8 0.5 - 1.5 mg/dL [facility] Blood (Blood, Venous) El Aldana APRN, C.N.P. LAB BLOOD AD D-ON [facility] [address] [phone] * (ABNORMAL) Electrolyte (Chem 4) Panel (07/20/2016 5:51 AM CDT) Pathologist [facility] Sodium, S 142 135 - 145 MMOL/L [facility] Comment:Drawn From PICC Potassium, S 3.6 3.6 - 5.2 MMOL/L [facility] Comment:Drawn From PICC Creatinine 0.6 0.6 - 1.1 MG/DL [facility] Comment:Drawn From PICC BUN (Blood Urea Nitrogen), S 12 6 - 21 MG/DL [facility] Comment:Drawn From PICC Chloride, S 107 98 - 107 MMOL/L [facility] Comment:Drawn From PICC HX Bicarbonate, P/S 21(L) 22 - 29 MMOL/L [facility] Comment:Drawn From PICC Anion Gap 14 7 - 15 [facility] Comment:Drawn From PICC Glucose, S 90 70 - 140 MG/DL [facility] Comment:Drawn From PICC 07/20/2016 5:51 AM CDT 07/20/2016 5:[address] [facility] - 07/20/2016 6:49 AM CDT Drawn From PICC Aditya El M.D. LAB BLOOD ADD-ON [facility] [address] [place] [address], [facility] from Last 3 Months or Most Recently Relevant to Health Maintenance Additional Health Concerns Infection Onset Date Last Indicated Protective Environment 08/17/2022 3 Advance Directives For more information, please contact: [phone] Documents on File Type Date Recorded Patient Petrography Teacher Expl anation Advance Directives 11/21/2021 5:50 PM JOSE T/JAYESH Advance Directives 07/10/2015 12:00 AM Ashly luong document. See document viewer. Care Teams Psychology Lecturer Relationship Specialty Start Date End Date Elsewhere, Pcp PCP - General Internal Medicine 11/20/21
--- OUTSIDE RECORDS SUMMARY | 2023-10-06 10:26 | XMS_ITS ---
Author Organization [facility] Address [address] [place] [address] Care Team Providers Care Shaker Out Name Role Phone Unavailable Unavailable Unavailable Surgery Details Not on file Complications Check Surgery Details section. Procedure Estimated Blood Loss Check Surgery Details section. Procedure Findings Check Surgery Details section. Procedure Specimens Taken Check Surgery Details section.
--- OUTSIDE RECORDS SUMMARY | 2023-10-06 10:26 | XMS_ITS | Referral Summary ---
Author Organization [facility] Address [address] [place] [address] Care Team Providers Care Retirement Assistant Name Role Phone Elsewhere, Pcp Primary Care Provider Unavailabl e Source Comments Patient records contain information from all sites at [facility]. For routine questions regarding patient records, call [phone] during business hours, M-F 8:00 AM - 5:00 PM Central Time. Record requests for emergency care only can be directed to [phone] at any time.[facility] Encounters Date Type Department Care Team Description 08/30/2023 Refill Division of Rheumatology in [place], [place] [address] [place] [address] Brittany Jauregui APRN, C.N.P., M.S. Med Refill from Last 3 Months Allergies Active Allergy [...] How often do you attend chur or taoist services? 1 to 4 times [...] Average Number of Drinks Not on file 07/15/2 022 Frequency of Binge Drinking Not on file 11/07 Overall Financial Resource Strain (CARDIA) Answe r Date Recorded How hard is it for you to pa y for the very basics like food, housing, medical care, and heating? Not hard at all 11/21/2021 [facility] of Occupat ional Health - Occupational Stress [...] place to sleep or slept in a retirement (including now)? No 11/21/2021 Nutrition Answer Date [...] Master's degree (e.g., MA, MS, Sariah, MEd, PHOTO INTERN, OFE) 12/22/2018 Sex and Gender Information Value [...] on file Medical Devices Implanted Type Area Grader Tender Device Identifier Shelf Expiration Date Model / Serial / Lot Hardware E.G. Pins/Screws/Mushtaq s Hardware e.g. pins/screws /rods Left: Mouth Description:Lower Left x 1 t ooth implant Hardware E.G. Pins/Screws/Mushtaq s Hardware e.g. pins/screws /rods N/A: Mouth Screw Biomet 3.5 Hex Lock 4.75 X 20 - Simmons [id number] Implanted:Qty: 1 on 06/15/2016 Hardware e.g. pins/screws /rods Other/Legacy - See Implant Description BioMet Description:Device Manufactu rer - [employer] Body Location - Other. Left. Device Status Text - [id number]. Conversions - Default Historical Implant Device Implanted:06/15 [...] Imp. Biomet Glenospher 36mm Std. - Simmons [id number] Implanted:Qty: 1 on 06/15/2016 Shoulder Implant Other/Legacy - See Implant Description BioMet Description:Device Manufactu rer - Bi[employer] Inc. Body Location - Other. Left. Device Status Text - [id number]. Biomet Hum. Bearing E1 Std 44-36 - Simmons [id number] Implanted:Qty: 1 on 06/15/2016 Shoulder Implant Other/Legacy - See Implant Description BioMet Description:Device Manufactu rer - Bi[employer] Inc. Body Location - Other. Left. Device Status Text - [id number]. Biomet Glenoid Baseplate Mini W Adaptor - Simmons [id number] Implanted:Qty: 1 on 06/15/2016 Shoulder Implant Other/Legacy - See Implant Description BioMet Description:Device Manufactu rer - [employer] Inc. Body Location - Other. Left. Device Status Text - [id number]. Bio. Comp Micro Stem 6mm - Simmons [id number] Implanted:Qty: 1 on 06/15/2016 Shoulder Implant Other/Legacy - See Implant Description BioMet Description:Device Manufactu rer - [employer] Inc. Body Location - Other. Left. Device Status Text - [id number]. Biomet-Screw Central 6.5mm X 20mm - Simmons [id number] Implanted:Qty: 1 on 06/15/2016 Shoulder Implant Other/Legacy - See Implant Description BioMet Description:Device Manufactu rer - [employer] Inc. Body Location - Other. Left. Device Status Text - [id number]. Biomet Hum Tray Comp Rev 44mm Std - Simmons [id number] Implanted:Qty: 1 on 06/15/2016 Shoulder Implant Other/Legacy - See Implant Description BioMet Description:Device Manufactu rer - [employer] Inc. Body Location - Other. Left. Device Status Text - [id number]. Screw Biomet 3.5 Non-Lock 4.75 X 25 - Simmons [id number] Implanted:Qty: 1 on 06/15/2016 Shoulder Implant Other/Legacy - See Implant Description BioMet Description:Device Manufactu rer - Bi[employer] Inc. Body Location - Other. Left. Device Status Text - [id number]. Procedures Procedure Name Priority Date/Time Associated Diagnosis Comments CREATININE WITH EGFR, S/P Routine 04/27/2023 ELECTROLYTE (CHEM 4) PANEL, S/P Routine 07/20/2016 5:51 AM CDT from Last 3 Months or Most Recently Relevant to Health Maintenance Results * Creatinine with Estimated GFR (04/27/2023) Pathologist [facility] EXT Creatinine 0.8 0.5 - 1.5 mg/dL [facility] Blood (Blood, Venous) Sabino Scott APRNNArmida LAB BLOOD AD D-ON [facility] [address] [phone] * (ABNORMAL) Electrolyte (Chem 4) Panel (07/20/2016 5:51 AM CDT) Pathologist [facility] Sodium, S 142 135 - 145 MMOL/L [facility] Comment:Drawn From PICC Potassium, S 3.6 3.6 - 5.2 MMOL/L [facility] Comment:Drawn From PICC Creatinine 0.6 0.6 - 1.1 MG/DL [facility] Comment:Drawn From PICC BUN (Blood Urea Nitrogen), S 12 6 - 21 MG/DL [facility] Comment:Drawn From PICC Chloride, S 107 98 - 107 MMOL/L [facility] Comment:Drawn From PICC HX Bicarbonate, P/S 21(L) 22 - 29 MMOL/L [facility] Comment:Drawn From PICC Anion Gap 14 7 - 15 [facility] Comment:Drawn From PICC Glucose, S 90 70 - 140 MG/DL [facility] Comment:Drawn From PICC 07/20/2016 5:51 AM CDT 07/20/2016 5:51 AM CDT Narrative [facility] - 07/20/2016 6:49 AM CDT Drawn From PICC Aditya El M.D. LAB BLOOD ADD-ON [facility] [address] [place] [address], [facility] from Last 3 Months or Most Recently Relevant to Health Maintenance Additional Health Concerns Infection Onset Date Last Indicated Protective Environment 08/17/2022 3 Advance Directives For more information, please contact: [phone] Documents on File Type Date Recorded Patient Uptwist Spinner Expl anation Advance Directives 11/21/2021 5:50 PM POLS T/MOLST Advance Directives 07/10/2015 12:00 AM Lega cy document. See document viewer. Care Teams Retirement Assistant Relationship Specialty Start Date End Date Elsewhere, Pcp PCP - General Internal Medicine 11/20/21
[2023-10-06 10:27] LABS: Alanine Aminotransferase* 16 U/L (4-35); Alkaline Phosphatase* 103 U/L (40-150); Anion Gap 12 mEq/L (7-15); Aspartate Amino Transferase* 27 U/L (12-35); Carbon Dioxide* 20 mmol/L (20-32); Creatinine* 0.7 mg/dL (0.5-1.5); Est. Creatinine Clearance* 40.16; Estimated Glomerular Filt Rate 87 ml/min; Total Protein* 7.4 g/dL (6.0-8.3)
[2023-10-06 10:35] LABS: Squamous Epithelial Cell Urine Few (None-Few)
[2023-10-06 10:36] LABS: Fine Granular Casts Urine Few
[2023-10-06 10:58] LABS: Blood Urea Nitrogen* 21 mg/dL (7-30); C Reactive Protein* 29.2 mg/dL (0.5-1.0); Calcium* 9.1 mg/dL (8.4-10.6); Glucose* 52 mg/dL (60-115)
[2023-10-06] MEDS: HYDROCORTISONE SOD SUCCINATE 50 MG/ML inj 100 MG IVP (11:09)
[2023-10-06 11:16] LABS: NT Pro B Type NatriureticPept* 1540 pg/mL
[2023-10-06] MEDS: cefTRIAXone 2 GM in 0.9 % SODIUM CHLORIDE Mini-bag 100 ML IVPB (11:16)
[2023-10-06] MEDS: METOPROLOL SUCCINATE (XL) 25 MG TAB PO (14:19)
[2023-10-06] MEDS: METOPROLOL TARTRATE 50 MG TABLET 25 MG PO (14:19)
[2023-10-06 14:20] LABS: Lactate* 0.9 mmol/L (0.5-1.9)
--- NOTE | 2023-10-06 14:51 | P.IMHP_ITS ---
Hospitalist- H&P: SUMIT History of Present Illness Date Seen: 10/06/23 Chief complaint: swelling Narrative: Shilpi is a 78-year-old female with atrial fibrillation on chronic anticoagulation with Coumadin, heart failure, chronic anemia, deep vein thrombosis, chronic lower extremity edema, lower extremity cellulitis presents emerged department via EMS from [facility] independent living possible fluid overload and cellulitis. Patient states over the last 2 days she has felt increased weakness, chills and fever, she says she has to put on 2 blankets to keep herself warm. She denies any recent falls, she denies any nausea vomiting, she has had no upper respiratory complains. She denies any history of MRSA in the past. Lower extremities have become more red, warm and painful. She has also had pain in her bilateral groins, she denies any abdominal pain, no diarrhea or urinary complaints. He due to the worsening symptoms she called EMS. Patient was hospitalized here 1 month ago with weakness and confusion, diagnosed with a UTI. On admission she was appearing septic with tachypneic, tachycardic, hypotensive and very confused. During that hospital stay she was suspected to be in adrenal crisis possibly because she had stop taking her chronic prednisone when she became ill. She responded well to IV hydrocortisone and IV dextrose. Since that time she has been doing well until she started noting increasing swelling in her hands. She has not been short of breath. She has not had chest pain. Patient does self manage her medications. She reports she is very good at managing medications but she is unable to tell me what medications he takes, wh en she takes them or what doses she is taking. Review of Systems Narrative: She reports generally doing well except for the issues above. She denies current headache though she said she had 1 last night. She has not had a cold or cough or sore throat. She has had no dyspnea or cough or chest pain. She is not aware of palpitations with her current rapid heart rate. She has been able to eat and drink. She thinks she is eating normally but her daughter thinks she is eating less than usual. She has not had abdominal pain, nausea or vomiting. She reports no diarrhea, blood in her stool or new constipation. She reports no urinary urgency frequency or dysuria or hematuria. She has got no back pain. She is not aware of leg pain. She has chronic venous stasis skin changes in her legs. PFSH PFSH Medical History (Updated 10/06/23 @ 15:12 by Nick Garcia MD) Elevated troponin ?R79.89 - Other specified abnormal findings of blood chemistry (ICD-10) Frailty syndrome in geriatric patient ?R54 - Age-related physical debility (ICD-10) Cognitive impairment ?R41.89 - Other symptoms and signs involving cognitive functions and awareness (ICD-10) Heart failure ?I50.9 - Heart failure, unspecified (ICD-10) DVT (deep venous thrombosis) ?I82.409 - Acute embolism and thrombosis of unspecified deep veins of unspecified lower extremity (ICD-10) 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, unspecified (ICD-10) Urinary tract infection ?N39.0 - Urinary tract infection, site not specified (ICD-10) Anemia due to gastrointestinal blood loss ?D50.0 - Iron deficiency anemia secondary to blood loss (chronic) (ICD-10) Anemia of chronic disease ?D63.8 - Anemia in other chronic diseases classified elsewhere (ICD-10) Atrial fibrillation with rapid ventricular response ?I48.91 - Unspecified atrial fibrillation (ICD-10) Atrial fibrillation ?I48.91 - Unspecified atrial fibrillation (ICD-10) Hypothyroidism ?E03.9 - Hypothyroidism, unspecified (ICD-10) Left leg cellulitis ?L03.116 - Cellulitis of left lower limb (ICD-10) Systemic lupus erythematosus ?M32.9 - Systemic lupus erythematosus, unspecified (ICD-10) Psoriasis ?L40.9 - Psoriasis, unspecified (ICD-10) Anemia ?D64.9 - Anemia, unspecified (ICD-10) Yeast dermatitis ?B37.2 - Candidiasis of skin and nail (ICD-10) Environmental allergies ?Z91.09 - Other allergy status, other than to drugs and biological substances (ICD-10) Osteoarthritis of left hip ?M16.12 - Unilateral primary osteoarthritis, left hip (ICD-10) Osteoarthritis of right knee ?M17.11 - Unilateral primary osteoarthritis, right knee (ICD-10) Osteoarthritis of right shoulder ?M19.011 - Primary osteoarthritis, right shoulder (ICD-10) Urethral caruncle ?N36.2 - Urethral caruncle (ICD-10) Weakness ?R53.1 - Weakness (ICD-10) Unsteady gait ?R26.81 - Unsteadiness on feet (ICD-10) Tubular adenoma ?D36.9 - Benign neoplasm, unspecified site (ICD-10) Spinal stenosis ?M48.00 - Spinal stenosis, site unspecified (ICD-10) 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 (ICD-10) Seasonal allergic rhinitis (01/27/12) ?J30.2 - Other seasonal allergic rhinitis (ICD-10) Scoliosis (01/27/12) ?M41.9 - Scoliosis, unspecified (ICD-10) Right shoulder pain ?M25.511 - Pain in right shoulder (ICD-10) Pyelonephritis ?N12 - Tubulo-interstitial nephritis, not specified as acute or chronic (ICD- 10) Positive colorectal cancer screening using DNA-based stool test ?R19.5 - Other fecal abnormalities (ICD-10) Physician Orders for Life-Sustaining Treatment (09/28/17) ?Z78.9 - Other specified health status (ICD-10) Physical deconditioning ?R53.81 - Other malaise (ICD-10) Physical debility ?R53.81 - Other malaise (ICD-10) Peripheral edema (05/12/10) ?R60.9 - Edema, unspecified (ICD-10) Osteopenia (05/26/11) ?M85.80 - Other specified disorders of bone density and structure, unspecified site (ICD-10) Nonspecific colitis ?K52.9 - Noninfective gastroenteritis and colitis, unspecified (ICD-10) Long-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 - Immunodeficiency due to drugs (ICD-10) ?T38.0X5A - Adverse effect of glucocorticoids and synthetic analogues, initial encounter (ICD-10) ?Z79.52 - predatory animal exterminator (current) use of systemic steroids (ICD-10) Hypokalemia ?E87.6 - Hypokalemia (ICD-10) Hypertension (08/16/12) ?I10 - Essential (primary) hypertension (ICD-10) Hyperlipidemia ?E78.5 - Hyperlipidemia, unspecified (ICD-10) High C-reactive protein ?R79.82 - Elevated C-reactive protein (CRP) (ICD-10) Health care directive on file (07/05/15) ?Z78.9 - Other specified health status (ICD-10) Gastroesophageal reflux disease (04/11/10) ?K21.9 - Gastro-esophageal reflux disease without esophagitis (ICD-10) Dilated cardiomyopathy (05/12/10) ?I42.0 - Dilated cardiomyopathy (ICD-10) Dilated bile duct ?K83.8 - Other specified diseases of biliary tract (ICD-10) Depression (08/16/12) ?F32.A - Depression, unspecified (ICD-10) Constipation ?K59.00 - Constipation, unspecified (ICD-10) Colitis ?K52.9 - Noninfective gastroenteritis and colitis, unspecified (ICD-10) Chronic pain syndrome ?G89.4 - Chronic pain syndrome (ICD-10) Chronic pain ?G89.29 - Other chronic pain (ICD-10) Cellulitis ?L03.90 - Cellulitis, unspecified (ICD-10) Anxiety (04/11/10) ?F41.9 - Anxiety disorder, unspecified (ICD-10) Anticoagulation goal of INR 2 to 3 ?Z51.81 - Encounter for therapeutic drug level monitoring (ICD-10) ?Z79.01 - predatory animal exterminator (current) use of anticoagulants (ICD-10) Abnormal liver function tests ?R79.89 - Other specified abnormal findings of blood chemistry (ICD-10) Long-term (current) use of anticoagulants, INR goal 2.0-3.0 ?Z79.01 - half-way (current) use of anticoagulants (ICD-10) Knee osteoarthritis ?M17.10 - Unilateral primary osteoarthritis, unspecified knee (ICD-10) POLST (Physician Orders for Life-Sustaining Treatment) ?Z78.9 - Other specified health status (ICD-10) Irritation of right ear ?H93.8X1 - Other specified disorders of right ear (ICD-10) History of pulmonary embolism (2017) ?Z86.711 - Personal history of pulmonary embolism (ICD-10) History of peptic ulcer ?Z87.11 - Personal history of peptic ulcer disease (ICD-10) History of deep vein thrombosis (DVT) of lower extremity (2017) ?Z86.718 - Personal history of other venous thrombosis and embolism (ICD-10) Head injury with loss of consciousness ?S06.9X9A - Unspecified intracranial injury with loss of consciousness of unspecified duration, initial encounter (ICD-10) Surgical History S/P foot surgery, right (08/28/14) ?Z98.890 - Other specified postprocedural states (ICD-10) 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) ?Z96.619 - Presence of unspecified artificial shoulder joint (ICD-10) Status post lumbar spinal fusion (04/11/10) ?Z98.1 - Arthrodesis status (ICD-10) Status post cervical spinal arthrodesis (09/2017) ?Z98.1 - Arthrodesis status (ICD-10) History of total hip replacement (05/12/10) ?Z96.649 - Presence of unspecified artificial hip joint (ICD-10) History of left knee replacement (05/12/10) ?Z96.652 - Presence of left artificial knee joint (ICD-10) History of hysterectomy (04/11/10) ?Z90.710 - Acquired absence of both cervix and uterus (ICD-10) History of colonoscopy (05/18/19) ?Z98.890 - Other specified postprocedural states (ICD-10) History of cholecystectomy (05/12/10) ?Z90.49 - Acquired absence of other specified parts of digestive tract (ICD- 10) Family History Brother Coronary artery disease Father Cancer Social History Narrative: Patient lives at [facility], independent living at [facility]. She is . 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 Her daughter, Giselle, lives in the area. Code status is DNR/DNI. Healthcare power of casualty underwriter is her daughter Giselle from [place]. She quit smoking in 1996. Has been chewing nicotine gum since then. She says she chews pieces constantly throughout the day and is never without a piece in her mouth. She does not drink alcohol. What is your current living situation?: I presently have a place to live Problems where you live: no known problems Problems where you live details: N/A In the past 12 months, utilities in danger of being shut off: no In past 12 months, lack of transportation kept you from medical appts, meetings, work, or getting things needed for daily living: no In the past 12 mos, have been you worried that your food would run out before you had money to buy more?: never true In the past 12 mos, the food you bought just didn't last and you didn't have money to buy more?: never true Highest level of school completed/degree received: 12th grade, no diploma Smoking Status: Never smoker Second hand tobacco smoke exposure: No How often do you have a drink containing alcohol: never How often do you have six or more drinks on one occasion: Never AUDIT-C Alcohol total score: 0 Non-prescribed substance use: denies use Caffeine: Yes (4-5 cups daily) How often does anyone, including family, friends and others, physically hurt you : never How often does anyone, including family, friends and others, insult or talk down to you: never How often does anyone, including family, friends and others, threaten you with harm: never How often does anyone, including family, friends and others, scream or curse at you: never Little interest or pleasure in doing things: several days Feeling down, depressed, or hopeless: more than half the days service: No Meds Home Medications and Allergies Home Medications ?Medication ?Instructions ?Recorded ?Confirmed ?Type melatonin 3 mg capsule 3 mg PO HS PRN 01/13/22 10/06/23 History omeprazole 20 mg capsule,delayed 20 mg PO DAILY 05/13/23 10/06/23 History release prednisone 10 mg tablet 10 mg PO DAILY 05/13/23 10/06/23 History levothyroxine 25 mcg tablet 25 mcg PO DAILY 06/05/23 10/06/23 History loratadine 10 mg tablet 10 mg PO DAILY allergic symptoms 06/05/23 10/06/23 History magnesium oxide 400 mg PO DAILY@12 06/05/23 10/06/23 History clobetasol 0.05 % lotion 1 applic topical BID PRN 07/13/23 10/06/23 History Home Medication Comments: She reports she manages her own medications and is quite certain she does it well. Allergies Allergy/AdvReac Type Severity Reaction Status Date / Time amitriptyline Allergy Severe disorientat Verified 07/27/23 15:37 ion penicillin V Allergy Severe upset Verified 07/27/23 15:37 stomach and rash perphenazine Allergy Severe disorientat Verified 07/27/23 15:37 ion adhesive Allergy Unknown Unknown Verified 07/27/23 15:37 bee venom protein (honey bee) AdvReac Severe Anaphylaxis Verified 07/27/23 15:37 latex AdvReac Severe Rash Verified 07/27/23 15:37 amoxicillin AdvReac Intermediate Diarrhea Verified 07/27/23 15:37 Tricyclic antidepressant Allergy Severe disorientat Uncoded 07/27/23 15:37 ion Bee venom Allergy Mild swells and Uncoded 07/27/23 15:37 area turns red Sulfa drugs Allergy Unknown Unknown Uncoded 07/27/23 15:37 Clavulanate AdvReac Intermediate Diarrhea Uncoded 07/27/23 15:37 Exam Narrative: Exam Narrative: She is alert and oriented to circumstances. She struggles to give significant details of recent health problems. Unable to report what medications she is taking at what times. Head is examined. No obvious trauma. Eyes normal. Oropharynx normal. No facial asymmetry. Neck is supple without mass or adenopathy. Respirations are clear to auscultation with a rare basilar crackle. No wheezing. Breathing is unlabored on room air. Cardiovascular: S1, S2, relatively regular rhythm. Abdomen: Bowel sounds active. Abdomen with mild diffuse tenderness. No focal tenderness or mass. External genitalia normal. Colindres catheter is draining a relatively clear yellow urine. Extremities: Upper extremities notable for bilateral hand edema in the MCPs and proximal fingers both hands bilaterally. She has chronic bilateral finger flexion contractures. MCP joints are somewhat boggy but distally edema in the skin as well. Lower extremities: No significant edema. She has moderate erythema and warmth in both legs, circumferentially around the calves extending from the knees to the ankles. Feet are spared with minimal edema and intact pedal pulses. Chronic deformities of the feet and toes noted without inflammation or erythema Const: Vital Signs, click to edit/add: Vital Signs - 24 hr 10/06/23 09:14 10/06/23 09:15 10/06/23 09:19 Temperature 98.7 F Pulse Rate 168 H Pulse Rate [Left R adial] Pulse Rate [Right Pulse Oximeter] 158 H Respiratory Rate 22 Blood Pressure 107/68 Blood Pressure [Le ft Arm] Blood Pressure [Ri ght Upper Arm] 107/68 Pulse Oximetry 96 97 Oxygen Delivery Me thod Room Air 10/06/23 09:40 10/06/23 09:41 10/06/23 09:45 Temperature Pulse Rate 150 H 156 H 155 H Pulse Rate [Left R adial] Pulse Rate [Right Pulse Oximeter] Respiratory Rate Blood Pressure 115/82 Blood Pressure [Le ft Arm] Blood Pressure [Ri ght Upper Arm] Pulse Oximetry 97 95 97 Oxygen Delivery Me thod 10/06/23 10:00 10/06/23 10:01 10/06/23 10:15 Temperature Pulse Rate 159 H 152 H 158 H Pulse Rate [Left R adial] Pulse Rate [Right Pulse Oximeter] Respiratory Rate Blood Pressure 123/87 Blood Pressure [Le ft Arm] Blood Pressure [Ri ght Upper Arm] Pulse Oximetry 95 97 97 Oxygen Delivery Me thod 10/06/23 10:16 10/06/23 10:30 10/06/23 10:34 Temperature Pulse Rate 150 H 150 H 147 H Pulse Rate [Left R adial] Pulse Rate [Right Pulse Oximeter] Respiratory Rate Blood Pressure 116/84 Blood Pressure [Le ft Arm] Blood Pressure [Ri ght Upper Arm] Pulse Oximetry 96 96 97 Oxygen Delivery Me thod 10/06/23 10:45 10/06/23 11:00 10/06/23 11:04 Temperature Pulse Rate 148 H 117 H 126 H Pulse Rate [Left R adial] Pulse Rate [Right Pulse Oximeter] Respiratory Rate Blood Pressure Blood Pressure [Le ft Arm] Blood Pressure [Ri ght Upper Arm] Pulse Oximetry 97 96 95 Oxygen Delivery Me thod 10/06/23 11:09 10/06/23 11:15 10/06/23 11:30 Temperature Pulse Rate 125 H 128 H 126 H Pulse Rate [Left R adial] Pulse Rate [Right Pulse Oximeter] Respiratory Rate Blood Pressure 138/79 Blood Pressure [Le ft Arm] Blood Pressure [Ri ght Upper Arm] Pulse Oximetry 97 94 96 Oxygen Delivery Me thod 10/06/23 11:31 10/06/23 11:32 10/06/23 11:45 Temperature Pulse Rate 129 H 124 H 121 H Pulse Rate [Left R adial] Pulse Rate [Right Pulse Oximeter] Respiratory Rate Blood Pressure 118/67 Blood Pressure [Le ft Arm] Blood Pressure [Ri ght Upper Arm] Pulse Oximetry 92 97 95 Oxygen Delivery Me thod 10/06/23 11:46 10/06/23 11:47 10/06/23 11:57 Temperature Pulse Rate 128 H 127 H Pulse Rate [Left R adial] Pulse Rate [Right Pulse Oximeter] Respiratory Rate 12 Blood Pressure 130/65 Blood Pressure [Le ft Arm] Blood Pressure [Ri ght Upper Arm] Pulse Oximetry 96 95 Oxygen Delivery Me thod 10/06/23 12:00 10/06/23 12:02 10/06/23 12:05 Temperature 98.4 F Pulse Rate 116 H 123 H Pulse Rate [Left R adial] Pulse Rate [Right Pulse Oximeter] Respiratory Rate Blood Pressure 111/59 L Blood Pressure [Le ft Arm] Blood Pressure [Ri ght Upper Arm] Pulse Oximetry 93 97 Oxygen Delivery Me thod 10/06/23 12:31 Temperature 99.5 F Pulse Rate Pulse Rate [Left R adial] 118 H Pulse Rate [Right Pulse Oximeter] Respiratory Rate 18 Blood Pressure Blood Pressure [Le ft Arm] 108/55 L Blood Pressure [Ri ght Upper Arm] Pulse Oximetry 96 Oxygen Delivery Me thod Room Air Documenting provider has reviewed patient's vital signs: yes Hospitalist - H&P: Result Labs Labs: Short CBC 10/06/23 Range/Units 09:45 WBC 12.35 H (4.50-11.00) K/uL Hgb 12.2 (12.0-16.0) gm/dL Hct 39.7 (33.0-51.0) % Plt Count 454 H (140-440) K/uL BMP 10/06/23 09:39 Sodium 137 Potassium 4.2 Chloride 105 Carbon Dioxide 20 BUN 21 Creatinine 0.7 Glucose 52 L Calcium 9.1 Liver Function 10/06/23 Range/Units 09:39 Total Bilirubin 1.0 (0.1-1.5) mg/dL AST 27 (12-35) U/L ALT 16 (4-35) U/L Alkaline Phosphatase 103 (40-150) U/L Albumin 4.1 (3.3-5.0) g/dL Urine 10/06/23 Range/Units 10:18 Urine Color Yellow (Yellow) Urine Appearance Clear (Clear) Urine pH 6.0 (5.0-8.5) Ur Specific [place] 1.020 (1.000-1.030) Urine Protein Negative (Negative) Urine Glucose (UA) Negative (Negative) Assessment and Plan Assessment and plan (1) Bilateral cellulitis of lower leg: Problem comment: Has chronic venous stasis disease. Cellulitis could be explanation for her weakness, fever and tachycardia Status: Acute (2) Sinus tachycardia: Problem comment: History of AFib but now appears to be in sinus tachycardia. Cause for this is likely infection though source is not yet obvious Status: Acute (3) Chronic anticoagulation: Problem comment: Check INR. Maintain therapeutic INR. Ongoing concern about medication compliance and maintaining therapeutic INR Status: Acute (4) Elevated troponin: Problem comment: Likely secondary to acute illness plus some heart failure plus tachycardia. Monitor for symptoms, trend, echo. Status: Acute (5) Heart failure: Problem comment: Radiologically noted on chest x-ray. Status: Acute (6) Frailty syndrome in geriatric patient: Problem comment: Patient is quite frail due to multiple chronic medical problems. PT and OT to assess functional status. Discussed with patient and family increasing assistance at home Status: Chronic (7) Heart failure: Problem comment: History of heart failure with dilated cardiomyopathy. Caution with fluid resu scitation. Status: Acute (8) Acute adrenal crisis: Problem comment: Appears to be having acute adrenal crisis. Possibly due to acute illness possibly due to medication noncompliance as it was suspected last time. Stress dose steroids for now. Status: Resolved Plan Patient is admitted to the hospital for evaluation of presumed infection, possible sepsis causing weakness, tachycardia, elevated troponin, leukocytosis and heart failure. Total Time Spent Total Time Spent: Total time spent today is 75 minutes, 50 minutes in course care discussing with patient daughter and other providers ongoing evaluation management of acute illness, infection, tachycardia, elevated troponin
[2023-10-06 14:57] LABS: Troponin I* 0.21 ng/mL (0.01-0.04)
[2023-10-06 15:00] LABS: INR 2.78 (0.91-1.10); Prothrombin Time 31.5 Seconds
[2023-10-06] MEDS: CEFAZOLIN 1 GM in 0.9 % SODIUM CHLORIDE Mini-bag 100 ML IVPB ×2 (16:10→23:42)
[2023-10-06] MEDS: HYDROCODONE-ACETAMIN 5-325 MG 1 TAB PO (16:19)
[2023-10-06] MEDS: 0.9 % SODIUM CHLORIDE 250 ml IV (17:38)
[2023-10-06] MEDS: HYDROCORTISONE SOD SUCCINATE 50 MG/ML inj IVP (17:38)
[2023-10-06] MEDS: GABAPENTIN 600 MG TABLET 1200 MG PO (20:35)
[2023-10-06] MEDS: SODIUM CHLORIDE 0.9 % (FLUSH) 10 ML SYRINGE 5 ML IVF (20:35)
--- NOTE | 2023-10-06 22:56 | PC.NURSE ---
End of shift: Patient pleasant and cooperative, A&O. VSS, afebrile. Cellulitis on bilateral lower legs. Patient denies pain this shift. Encouraged patient to get up and have dinner in the chair, she declined. Turned and repositioned this shift. Colindres catheter draining clear, straw urine. Tolerating regular diet.
[2023-10-07] VITALS (10 sets, daily range): BP systolic 109–140; BP diastolic 50–70; PULSE 63–99; RESP 15–18; TEMP 36.6–37.3; O2SAT 95–98
[2023-10-07] MEDS: SODIUM CHLORIDE 0.9 % (FLUSH) 10 ML SYRINGE 5 ML IVF ×3 (02:22→20:30)
[2023-10-07] MEDS: HYDROCORTISONE SOD SUCCINATE 50 MG/ML inj IVP ×3 (02:22→17:51)
[2023-10-07] MEDS: OMEPRAZOLE 20 MG CAPSULE DR PO (06:08)
[2023-10-07] MEDS: LEVOTHYROXINE 25 MCG TABLET PO (06:08)
[2023-10-07 06:37] LABS: Basophils Absolute Auto 0.01 K/uL (0.00-0.30); Basophils Percent Auto 0.1 % (0.0-3.0); Hematocrit 33.5 % (33.0-51.0); Hemoglobin* 10.2 gm/dL (12.0-16.0); Immature Granulocytes Abs Auto 0.01 K/uL (0.00-0.30); Immature Granulocytes Pct Auto 0.1 %; Mean Corpuscular HGB Conc 30 gm/dL (32-36); Mean Corpuscular Hemoglobin 26 pg (26-34); Mean Corpuscular Volume 87 fL (80-100); Monocytes Percent Auto 4.2 % (0.0-11.0); Neutrophils Percent Auto 89.6 % (42.0-72.0); Platelet Count* 326 K/uL (140-440); RDW Coefficient of Variation % 15.4 % (11.5-15.5); Red Blood Count 3.87 m/uL (4.00-5.20); White Blood Count* 8.98 K/uL (4.50-11.00)
--- NOTE | 2023-10-07 06:43 | PC.NURSE ---
End of shift note [id number]: Pt alert & oriented x 4. IV to R forearm patent and SL. Colindres catheter in place. Bilateral lower extremities noted to have warmth and redness present though pt currently being treated for cellulitis with IV ABX. Slight redness/yeasty odor noted under bilateral breasts. Alteration Manager has requested day hospitalist provide order for Nystatin Powder to treat. ?VSS and pt has been afebrile throughout the shift. She is currently on telemetry with NSR noted this shift.
[2023-10-07 06:45] LABS: Slide Review Reflex No
[2023-10-07 07:00] LABS: Chloride* 109 mmol/L (96-114); Potassium* 3.9 mmol/L (3.6-5.1); Sodium* 138 mmol/L (135-149)
[2023-10-07 07:03] LABS: Anion Gap 3 mEq/L (7-15); Blood Urea Nitrogen* 17 mg/dL (7-30); Calcium* 8.3 mg/dL (8.4-10.6); Carbon Dioxide* 26 mmol/L (20-32); Creatinine* 0.6 mg/dL (0.5-1.5); Est. Creatinine Clearance* 41.64; Estimated Glomerular Filt Rate 91 ml/min; Glucose* 117 mg/dL (60-115)
[2023-10-07] MEDS: CEFAZOLIN 1 GM in 0.9 % SODIUM CHLORIDE Mini-bag 100 ML IVPB ×2 (07:51→15:35)
[2023-10-07] MEDS: buPROPion XL 150 MG TABLET PO (08:58)
[2023-10-07] MEDS: LORATADINE 10 MG TABLET PO (08:58)
[2023-10-07] MEDS: GABAPENTIN 600 MG TABLET 1200 MG PO ×2 (08:58→20:30)
[2023-10-07] MEDS: LOSARTAN POTASSIUM 50 MG TABLET 25 MG PO (08:58)
[2023-10-07] MEDS: FUROSEMIDE 40 MG TABLET PO (08:58)
[2023-10-07] MEDS: HYDROCODONE-ACETAMIN 5-325 MG 1 TAB PO (08:58)
[2023-10-07] MEDS: MAGNESIUM OXIDE 400 MG TABLET PO (11:58)
--- NOTE | 2023-10-07 13:34 | P.IMPN_ITS ---
Progress Note: A&P Assessment and plan (1) Bilateral cellulitis of lower leg: Problem details: Has chronic venous stasis disease. Cellulitis could be explanation for her weakness, fever and tachycardia. Clinically much better today with resolution of low-grade fever, tachycardia, leukocytosis, altered mental status. Status: Acute (2) Sinus tachycardia: Problem details: History of AFib but now appears to be in sinus tachycardia. Cause for this tachycardia is likely infection. Status: Acute (3) Chronic anticoagulation: Problem details: Check INR. Maintain therapeutic INR. Ongoing concern about medication compliance and maintaining therapeutic INR Status: Acute (4) Elevated troponin: Problem details: Likely secondary to acute illness plus some heart failure plus tachycardia. Monitor for symptoms, trend, echo. Troponin improving with improvement in tachycardia Status: Acute (5) Heart failure: Problem details: Radiologically noted on chest x-ray. Clinically not apparent. Likely to improve just with rate control. Status: Acute (6) Frailty syndrome in geriatric patient: Problem details: Patient is quite frail due to multiple chronic medical problems. PT and OT to assess functional status. Status: Chronic (7) Acute adrenal crisis: Problem details: Appears to be having acute adrenal crisis. Possibly due to acute illness possibly due to medication noncompliance as it was suspected last time. Stress dose steroids with IV hydrocortisone started. Now transition to oral prednisone taper in the next few days Status: Resolved Plan Continue in hospital for ongoing evaluation management of infection with IV ant ibiotics, tachycardia and heart disease. Anticipate return to previous living arrangement at [facility] in the next few days. Time Spent With Patient Total time spent: Total time spent today is 55 minutes, 40 minutes in coordination care discussing with patient other providers ongoing evaluation management of infection and heart disease and disposition Subjective Date Seen: 10/07/23 Interval history: Shilpi is a 78-year-old female with atrial fibrillation on chronic anticoagulation with Coumadin, heart failure, chronic anemia, deep vein thrombosis, chronic lower extremity edema, lower extremity cellulitis presents emerged department via EMS from [facility] independent living possible fluid overload and cellulitis. Patient states over the last 2 days she has felt increased weakness, chills and fever, she says she has to put on 2 blankets to keep herself warm. She denies any recent falls, she denies any nausea vomiting, she has had no upper respiratory complains. She denies any history of MRSA in the past. Lower extremities have become more red, warm and painful. She has also had pain in her bilateral groins, she denies any abdominal pain, no diarrhea or urinary complaints. He due to the worsening symptoms she called EMS. Patient was hospitalized here 1 month ago with weakness and confusion, diagnosed with a UTI. On admission she was appearing septic with tachypneic, tachycardic, hypotensive and very confused. During that hospital stay she was suspected to be in adrenal crisis possibly because she had stop taking her chronic prednisone when she became ill. She responded well to IV hydrocortisone and IV dextrose. Since that time she has been doing well until she started noting increasing swelling in her hands. She has not been short of breath. She has not had chest pain. Patient does self manage her medications. She reports she is very good at managing medications but she is unable to tell me what medications he takes, when she takes them or what doses she is taking. A month ago on admission with there was concern that she was min having medication noncompliance. Her daughter reports that she has been getting assistance for the last 2 weeks to fill her pill box. The daughter brought in the pill box and it was empty. She tells me that today is the day they fill it for the week so it was appropriately empty. The daughter is fairly confident that her mom has been getting her medications right for the last couple weeks. October 06. Patient of reports feeling better today. Her appetite is better her energy is better her mental status and alertness is better. She is not having any breathing or any new pain. She has been able to eat some food though appetite is still not back to normal. Her low-grade fever appears to have writ ten resolved. Her tachycardia is much better. Exam Narrative: Exam Narrative: She is alert and appears in no distress. Mood and affect are bright today. His speech is normal. Eyes normal. Oropharynx normal. Neck is supple without mass or adenopathy. Respirations are clear to auscultation without wheezing rales or rhonchi. Cardiovascular: S1, S2, regular rate and rhythm. Abdomen is soft without tenderness or mass. Upper extremities with still some diffuse edema in the MCPs and fingers. Lower extremities without significant edema. She still has moderate erythema circumferentially around both legs but this is significantly better than yesterday. Good pedal pulse on the left. Decreased on the right. Const: Vital Signs, click to edit/add: Vital Signs - 24 hr 10/06/23 15:00 10/06/23 15:00 10/06/23 15:00 Temperature 99.3 F Pulse Rate Pulse Rate [Left P ulse Oximeter] 81 Respiratory Rate 18 18 18 Blood Pressure [Le ft Arm] 113/50 L Pulse Oximetry 92 92 Oxygen Delivery Me thod Room Air Room Air 10/06/23 15:00 10/06/23 19:00 10/06/23 23:00 Temperature 99.4 F Pulse Rate 80 Pulse Rate [Left P ulse Oximeter] 72 71 Respiratory Rate 16 16 Blood Pressure [Le ft Arm] 120/62 Pulse Oximetry 95 Oxygen Delivery Me thod Room Air 10/06/23 23:39 10/07/23 00:35 10/07/23 02:40 Temperature 98.5 F 97.8 F Pulse Rate 69 Pulse Rate [Left P ulse Oximeter] 71 66 Respiratory Rate 16 16 Blood Pressure [Le ft Arm] 112/58 L 121/65 Pulse Oximetry 93 95 Oxygen Delivery Me thod Room Air Room Air 10/07/23 07:00 10/07/23 07:14 10/07/23 11:00 Temperature 98 F 98.9 F Pulse Rate 63 Pulse Rate [Left P ulse Oximeter] 72 68 Respiratory Rate 16 16 Blood Pressure [Le ft Arm] 140/70 H 109/70 Pulse Oximetry 98 97 Oxygen Delivery Me thod Room Air Room Air Documenting provider has reviewed patient's vital signs: yes Labs Labs: Laboratory Results - last 24 hr 10/06/23 10/07/23 14:15 05:48 WBC 8.98 RBC 3.87 L Hgb 10.2 L Hct 33.5 MCV 87 MCH 26 MCHC 30 L RDW Coeff of Rolo 15.4 Plt Count 326 Neut % (Auto) 89.6 H Lymph % (Auto) 6.0 L [place] % (Auto) 4.2 Eos % (Auto) 0.0 Baso % (Auto) 0.1 Neut # (Auto) 8.00 H Lymph # (Auto) 0.50 L [place] # (Auto) 0.40 Eos # (Auto) 0.00 Baso # (Auto) 0.01 Abs Immat Gran (auto) 0.01 Imm/Tot Granulo (auto) 0.1 INR 2.78 H Sodium 138 Potassium 3.9 Chloride 109 Carbon Dioxide 26 Anion Gap 3 L BUN 17 Creatinine 0.6 Estimated Creat Clear 41.64 Estimated GFR 91 Glucose 117 H Lactate 0.9 Calcium 8.3 L Troponin I 0.21 H* 0.10 H* TSH 1.510
[2023-10-07] MEDS: WARFARIN 3 MG TABLET 1.5 MG PO (16:31)
[2023-10-07] MEDS: NYSTATIN POWDER 1 APPLIC TOPICAL (16:32)
--- NOTE | 2023-10-07 17:04 | PC.SOCIAL ---
Discharge planning: Met with pt who is requesting to return to her apartment at [facility] where she receives some services at discharge. Pt has gone to the [facility] on that campus from the hospital in the past but is not interested in that for this visit. Spoke with dtr by phone and in person who agrees with pt's plan to return to [facility] and will work with [facility] to hire additional services as needed after her return. Also provided dtr with written list of clinical manager home care care agencies as dtr is interested in hiring home improvement advisor for pt who could also assist pt in going though belongings to downsize her apartment. Called and secure emailed updated information to Pati at [facility] who came and assessed pt at the hospital. Pati states pt can return to her apartment at discharge tomorrow and that they will work with the dtr to increase services. Pati states dtr is requesting pt be discharged between 11-12:30 so she can transport pt. Pati states the van is available if the dtr is unable to transport her. chore worker to call and send discharge information to [facility] prior to discharge. Per Pati, pt has [facility] providing PT/OT out-pt and migth need a new order to resume upon discharge. chore worker to follow up as needed.
[2023-10-08] MEDS: CEFAZOLIN 1 GM in 0.9 % SODIUM CHLORIDE Mini-bag 100 ML IVPB ×2 (00:02→08:50)
[2023-10-08] MEDS: 0.9 % SODIUM CHLORIDE 250 ml IV (00:04)
[2023-10-08 02:45] VITALS: BP 156/80; PULSE 99; RESP 18; TEMP 37.1; O2SAT 98
[2023-10-08] MEDS: OMEPRAZOLE 20 MG CAPSULE DR PO (06:31)
[2023-10-08] MEDS: LEVOTHYROXINE 25 MCG TABLET PO (06:31)
--- NOTE | 2023-10-08 06:40 | PC.NURSE ---
End of shift note : Pt alert & oriented x 4 and able to make needs known. She transfers with SBA using rolling walker and gait belt. IV to R FA patent and SL. Pt has been denying pain when asked throughout the shift. Pt remains on IV ABX to treat cellulitis infection. Pt has been continent of bladder. VSS and pt has been afebrile throughout the shift. ?
[2023-10-08 07:39] LABS: Basophils Absolute Auto 0.01 K/uL (0.00-0.30); Basophils Percent Auto 0.1 % (0.0-3.0); Eosinophils Absolute Auto 0.01 K/uL (0.00-0.50); Eosinophils Percent Auto 0.1 % (0.0-7.0); Hematocrit 32.5 % (33.0-51.0); Hemoglobin* 9.9 gm/dL (12.0-16.0); Immature Granulocytes Abs Auto 0.01 K/uL (0.00-0.30); Immature Granulocytes Pct Auto 0.1 %; Lymphocytes Percent Auto 12.5 % (20-44); Mean Corpuscular HGB Conc 31 gm/dL (32-36); Mean Corpuscular Hemoglobin 27 pg (26-34); Mean Corpuscular Volume 87 fL (80-100); Monocytes Percent Auto 8.4 % (0.0-11.0); Neutrophils Percent Auto 78.8 % (42.0-72.0); Platelet Count* 373 K/uL (140-440); RDW Coefficient of Variation % 15.4 % (11.5-15.5); Red Blood Count 3.73 m/uL (4.00-5.20); White Blood Count* 10.39 K/uL (4.50-11.00)
[2023-10-08 07:44] LABS: Slide Review Reflex No
[2023-10-08 08:02] LABS: Prothrombin Time 37.9 Seconds
[2023-10-08 08:04] LABS: Chloride* 110 mmol/L (96-114); Potassium* 3.2 mmol/L (3.6-5.1); Sodium* 141 mmol/L (135-149)
[2023-10-08 08:07] LABS: Anion Gap 3 mEq/L (7-15); Blood Urea Nitrogen* 23 mg/dL (7-30); Carbon Dioxide* 28 mmol/L (20-32); Creatinine* 0.7 mg/dL (0.5-1.5); Est. Creatinine Clearance* 40.45; Estimated Glomerular Filt Rate 87 ml/min; Glucose* 113 mg/dL (60-115)
[2023-10-08 08:46] VITALS: BP 137/67; PULSE 75; PULSE 78; RESP 18; TEMP 36.7; O2SAT 97
[2023-10-08] MEDS: HYDROCODONE-ACETAMIN 5-325 MG 1 TAB PO (08:50)
[2023-10-08] MEDS: LORATADINE 10 MG TABLET PO (08:51)
[2023-10-08] MEDS: predniSONE 20 MG TABLET 30 MG PO (08:51)
[2023-10-08] MEDS: GABAPENTIN 600 MG TABLET 1200 MG PO (08:51)
[2023-10-08] MEDS: LOSARTAN POTASSIUM 50 MG TABLET 25 MG PO (08:51)
[2023-10-08] MEDS: FUROSEMIDE 40 MG TABLET PO (08:51)
[2023-10-08] MEDS: buPROPion XL 150 MG TABLET PO (08:51)
[2023-10-08] MEDS: SODIUM CHLORIDE 0.9 % (FLUSH) 10 ML SYRINGE 5 ML IVF (08:52)
--- NOTE | 2023-10-08 09:08 | PM.DS1 ---
DS: Providers Provider Date Seen: 10/08/23 Date of admission: 10/06/23 12:13 Primary care physician: Prakash Moore MD Admitting Clinician: Nick Garcia MD Consults: 10/06/23 14:30 Consult to Occupational Therapy [CONS] Routine Comment: Reason(s) for OT Consult:: Difficulty Managing ADLs Any Restrictions?:: No Restrictions Comment: concern for medication management Consult to Physical Therapy [CONS] Routine Comment: Reason(s) for PT Consult:: Evaluate and Treat Any Restrictions?:: No Restrictions Attending Physician on discharge: Bree Snyder MD Date of Discharge: 10/08/23 DS: Diagnosis Discharge Diagnosis (1) Bilateral cellulitis of lower leg: Status: Acute Problem details: - presented with chills, elevated temperature (TMax 99.4), leukocytosis, tachycardia; all resolved during stay - chronic BLE venous stasis disease so will always have some element of lower extremity erythema; bright red erythema and warmth improved during stay (2) Sinus tachycardia: Status: Acute Problem details: - history of AFib, was in sinus tachycardia during stay - this resolved after antibiotic therapy and overall clinical improvement (3) Chronic anticoagulation: Status: Acute Problem details: - continued Warfarin during stay, will continue upon discharge (d/c INR 3.5) (4) Elevated troponin: Status: Acute Problem details: - troponin peak at 0.21, no chest pain - likely demand ischemia given sinus tachycardia in acute illness on arrival (5) Heart failure: Status: Acute Problem details: - mild pulmonary edema on CXR, TTE obtained on 10/06 exhibiting an EF of 45-50%, mild , moderate MR, moderate TR (6) Frailty syndrome in geriatric patient: Status: Chronic Problem details: - therapies followed during stay, will continue upon discharge back to [facility]; ultimate goal is to movement of [facility] with increased services at [facility] (7) Acute adrenal crisis: Status: Resolved Problem details: - concern for acute adrenal crisis given presentation; treated with stress dose steroids IV and increased dose of prednisone - back to home dose of prednisone 10mg daily upon discharge DS: Summary Hospital Course Hospital Course: Shilpi is an 78-year-old female with multiple comorbidities who presented to the hospital with chills, elevated temperature, tachycardia, concern of bilateral lower extremity cellulitis in the setting of known PVD. She was treated with IV Cefazolin and improved both subjectively and objectively during stay. Also noted: elevated troponin, concern for adrenal crisis, acute on chronic weakness (see details above). Followed by therapies during stay, and medically appropriate for discharge back to [facility] (with therapies) at [facility] on 10/08/23. Status at Discharge Functional status at discharge: uses cane/walker Overall status at discharge: patient is progressing back to baseline Time Spent with Patient Time attestation: Total time spent providing and/or coordinating discharge services: Time spent: Greater than 30 minutes Specific discharge activities: Medication reconciliation, multidisciplinary team planning, education Exam Narrative: Exam Narrative: GEN: Alert and sitting comfortably in bedside chair HEENT: EOMIs bilaterally, no scleral icterus CV: RRR, soft systolic murmur without concerning features or radiation R: Air movement adequate, no wheezing Ext: Erythema of bilateral lower extremities noted with significant reduction in erythema from outline drawn earlier during stay. No open skin lesions or vesicular features noted. Upper extremities noted to have ulnar deviation with flexion of all fingers, decreased ROM Psych: Appropriate Const: Vital Signs, click to edit/add: Vital Signs - 24 hr 10/07/23 11:00 10/07/23 15:00 10/07/23 15:06 Temperature 98.9 F 99.1 F Pulse Rate 65 Pulse Rate [Left P ulse Oximeter] 68 82 Respiratory Rate 16 15 Blood Pressure [Le ft Arm] 109/70 132/56 L Pulse Oximetry 97 98 Oxygen Delivery Me od Room Air Room Air 10/07/23 19:55 10/07/23 23:00 10/07/23 23:00 Temperature 98.8 F 98.3 F Pulse Rate Pulse Rate [Left P ulse Oximeter] 86 99 99 Respiratory Rate 16 18 18 Blood Pressure [Le ft Arm] 124/50 L 136/70 Pulse Oximetry 97 96 [facility] 10/07/23 23:33 10/08/23 02:45 10/08/23 08:46 Temperature 98.8 F Pulse Rate 77 Pulse Rate [Left P ulse Oximeter] 99 78 Respiratory Rate 18 18 Blood Pressure [Le ft Arm] 156/80 H Pulse Oximetry 98 [facility] 10/08/23 08:46 Temperature 98.1 F Pulse Rate Pulse Rate [Left P ulse Oximeter] 75 Respiratory Rate 18 Blood Pressure [Le ft Arm] 137/67 Pulse Oximetry 97 Oxygen Delivery Me thod Room Air DS: Data Data Completed and Pending Completed studies during hospitalization: Procedures Inspection of Upper Intestinal Tract, Via Natural or Artificial Opening Endoscopic (03/23/23) Introduction of Other Gas into Respiratory Tract, Via Natural or Artificial Opening (03/23/23) Sabianist of Cardiac Rhythm, Single (03/23/23) Transfusion of Nonautologous Red Blood Cells into Peripheral Vein, Percutaneous Approach (03/23/23) Labs on day of discharge: Labs from last 24 hours 10/08/23 06:40 WBC 10.39 RBC 3.73 L Hgb 9.9 L Hct 32.5 L MCV 87 MCH 27 MCHC 31 L RDW Coeff of Rolo 15.4 Plt Count 373 Neut % (Auto) 78.8 H Lymph % (Auto) 12.5 L [place] % (Auto) 8.4 Eos % (Auto) 0.1 Baso % (Auto) 0.1 Neut # (Auto) 8.20 H Lymph # (Auto) 1.30 [place] # (Auto) 0.90 Eos # (Auto) 0.01 Baso # (Auto) 0.01 Abs Immat Gran (auto) 0.01 Imm/Tot Granulo (auto) 0.1 INR 3.50 H Sodium 141 Potassium 3.2 L Chloride 110 Carbon Dioxide 28 Anion Gap 3 L BUN 23 Creatinine 0.7 Estimated Creat Clear 40.45 Estimated GFR 87 Glucose 113 Calcium 8.0 L Preliminary micro results at discharge 10/06/23 10:27 Blood Culture - Preliminary Blood NO GROWTH AFTER 24 HOURS 10/06/23 09:45 Blood Culture - Preliminary Blood NO GROWTH AFTER 24 HOURS Discharge Plan Discharge Disposition: Xfer [facility] Date of Admission: 10/06/23 12:13 Attending Provider on Discharge: Bree Snyder Primary Care Provider: Prakash Moore Anticipated Discharge Date/Time: 10/08/23 08:54 Discharge Medications: New cephalexin 500 mg capsule 500 mg PO Q8H 7 Days Qty: 21 0RF Continued melatonin 3 mg capsule 3 mg PO HS PRN bupropion HCl 150 mg tablet extended release 24 hr 150 mg PO DAILY Qty: 90 3RF furosemide 40 mg tablet 40 mg PO DAILY Qty: 90 3RF losartan 25 mg tablet 25 mg PO DAILY Qty: 90 3RF metoprolol succinate 25 mg tablet extended release 24 hr 25 mg PO DAILY Qty: 90 3RF omeprazole 20 mg capsule,delayed release(DR/EC) 20 mg PO DAILY prednisone 10 mg tablet 10 mg PO DAILY clobetasol 0.05 % lotion 1 applic topical BID PRN levothyroxine 25 mcg tablet 25 mcg PO DAILY magnesium oxide 400 mg magnesium tablet 400 mg PO DAILY@12 loratadine 10 mg tablet 10 mg PO DAILY estradiol 0.01 % (0.1 mg/gram) cream 0.5 g vaginal QWEEK Qty: 42.5 1RF Rx Instructions: Use nightly for two weeks, then decrease use to twice weekly for 2 weeks, then use once weekly. gabapentin 400 mg capsule 1,200 mg PO BID Qty: 540 3RF warfarin 3 mg tablet 1.5 mg PO DAILY Qty: 90 0RF Protocol: Dose Management Condition: Wednesday Dose/Route: 1.5 mg Instruction: 0.5 x 3 mg tablets Condition: Wednesday Dose/Route: 3 mg Instruction: 1 x 3 mg tablet Condition: Wednesday Dose/Route: 1.5 mg Instruction: 0.5 x 3 mg tablets Condition: Wednesday Dose/Route: 1.5 mg Instruction: 0.5 x 3 mg tablets Condition: Dose/Route: 1.5 mg Instruction: 0.5 x 3 mg tablets Condition: Wednesday Dose/Route: 1.5 mg Instruction: 0.5 x 3 mg tablets Condition: Wednesday Dose/Route: 1.5 mg Instruction: 0.5 x 3 mg tablets Protocol Text: Adjustment Start Date: Wednesday09/28/23 INR Value: 2.5 INR Date: 09/28/23 Recheck Date: 10/12/23 hydroxychloroquine 200 mg tablet 200 mg PO .Daily At 12:00PM Qty: 90 0RF hydrocodone-acetaminophen 5-325 mg tablet 1 tab PO QDAY 30 Days Qty: 30 0RF Discharge Orders: Discharge Order (Routine); Ordered 10/08/23 Ordered By: Bree Snyder Additional Instructions: It is VERY important that you restart your vaginal estrogen this week; it will be the most helpful thing for UTI prevention. NO NEED to add nightly sandy-cares at this time as we know that your UTIs flare when you're off of your Estrogen. Antibiotics at [facility]; take three times/day with food for another week. No changes to your other home medications. Activity Level: Activity as Tolerated Discharge Diet: Heart Healthy (2 gm sodium, low fat) Follow Up Appointments: Prakash Moore MD [Primary Care Provider] - (Please schedule hospital follow up appointment in 1-2 weeks with Primary care provider) Forms: [facility] Info Instructions Admit to: Assisted Living Length of Stay: >90 days Can use facility standing orders?: Yes Code Status: DNR/DNI Therapy: Physical Therapy and Occupational Therapy Oxygen: No Urinary Catheter: No Next INR: Wednesday, 10/10 INR Goal: 2-3 Orders are good >30 days: Yes Signature: Bree Snyder MD
--- NOTE | 2023-10-08 10:20 | PC.SOCIAL ---
Discharge planning: Met with pt who is pleased with plan for discharge back to [facility] today with orders from MD to resume PT/OT at home through [facility]. Pt shared she has an OT appointment scheduled for 1:00 today with [facility] and was wondering if it would be covered by her insurance since she had OT at the hospital today. At pt's request, called [facility] and left a message with pt's question and concern. Also left message regarding resumption of pt/ot orders for follow up by Judy Vanessa. Secure emailed discharge information and orders to Pati Steven and Susanne at [facility] as requested. Spoke with dtr by phone who is aware and pleased with this plan and will pick pt up at 11:00 for transport today back to [facility]. Dtr shared that pt will be moving into [facility] with increased services in the near future. Dtr is aware of how to contact social worker clinical if additional information is needed.
[2023-10-08 11:00] VITALS: BP 146/78; PULSE 73; RESP 18; TEMP 36.7; O2SAT 99
[2023-10-08] MEDS: MAGNESIUM OXIDE 400 MG TABLET PO (11:25)
[2023-10-08] MEDS: HYDROXYCHLOROQUINE 200 MG TABLET PO (11:25)
--- NOTE | 2023-10-08 13:55 | PC.NURSE ---
Nursing Care Hours: [id number] Pt this shift calm and cooperative, alert and oriented x4. Ax1 with walker and gait belt. C/o pinching pain on R calve. No increased redness or swelling noted. Denies change in pain with foot flexion. Pt states it started when legs were elevated on pillows in bed HS. VSS. Redness on bilat legs within and receding from outline. IV removed for discharge. Instructions went over with pt and adult daughter. Wheeled out to vehicle in stable condition.
== END 2023-10-08 11:55 | DRG 602 ==
LOC: ED 11:55 → MEDSURG 12:14
PROVIDERS: Admitting Provider Family Medicine; Emergency Provider Student in an Organized Health Care Education/Training Program; PCP Family Medicine; Visit Provider Family Medicine
DX: L03.116 Cellulitis of left lower limb (principal); I50.23 Acute on chronic systolic (congestive) heart failure; I24.89 Other forms of acute ischemic heart disease; E27.2 Addisonian crisis; D84.821 Immunodeficiency due to drugs; L03.115 Cellulitis of right lower limb; I87.8 Other specified disorders of veins; I48.91 Unspecified atrial fibrillation; Z79.01 Long term (current) use of anticoagulants; R00.0 Tachycardia, unspecified; I11.0 Hypertensive heart disease with heart failure; R54 Age-related physical debility; M32.9 Systemic lupus erythematosus, unspecified; L40.9 Psoriasis, unspecified; T38.0X5A Adverse effect of glucocorticoids and synthetic analogues, initial encounter; Z79.52 Long term (current) use of systemic steroids; Z86.718 Personal history of other venous thrombosis and embolism; Z86.711 Personal history of pulmonary embolism
CPT/HCPCS: 36415; 71045; 80048; 80053; 81001; 81003; 83605; 83880; 84443; 84484; 85025; 85610; 86140; 87040; 87493; 93005; 93306; 97116; 97161; 97165; 97530; 97535; 99283; 99285; A9270; J0690; J0696; J1720; J7030; J7050; J7512

== ENCOUNTER 2023-10-19 13:29 | Outpatient (CLI) | payer MEDICARE, BC, SELFPAY ==
--- OUTSIDE RECORDS SUMMARY | 2023-10-19 13:34 | XMS_ITS | Continuity of Care Document ---
Author Organization [facility] Address [address] [place] [address] Phone Care Team Providers Care Civil Clerk Name Role Phone Chase Snowden MD Unavailable [...] Seg Office/Outpatient Visit,Est, Mod 2017 Office/Outpatient Visit,New, [facility] 2017 Office/Outpatient Visit,Est, Mod 2011 Postop Followup Visit Remove Lumbar Spine Lamina, 1 Seg Pa Assist Remove Lumbar Spine Lamina, 1 Seg Office/Outpatient Visit,New, Mod 2011 X-Ray Exam Lwr Spine, Min 4 Views Advance Directives Directive Yes / No Effective Date File Name No Information Encounters Encounter Description Practice Location Reason(s) For Visit Diagnoses Date Provider Providers Copied on Encounter [facility], [address] [place] [address], [id number], [place] tel:[phone] No Information 1 Sp Stone. [facility], [address] [place] [address], [id number], . [phone] [facility], [address] [place] [address], [id number], [place] tel:[phone] [facility] Arthrodesis status 1 No Information Office/Outpa tient Visit,Est, Mod [facility], [address] [place] [address], [id number], [place] tel:[phone] [facility] No Information 1 No Information Referring Provider: Prakash Mccauley, [facility] [address] [place], [address]. tel:[phone] Office/Outpa tient Visit,Est, Mod [facility], [address] [place] [address], [id number], [place] tel:[phone] [facility] Arthrodesis status 0 Sp Stone. [facility], [address] [place] [address], [id number], [place]. tel:[phone] Referring Provider: Prakash Mccauley, [facility] [address] [place], [address]. tel:[phone] Office/Outpa tient Visit,Est, Mod [facility], [address] [place] [address], [id number], [place] tel:[phone] [facility] Kyphosis 0 Sp Stone. [facility], [address] [place] [address], [id number], [place]. tel:[phone] Referring Provider: Prakash Mccauley, [facility] [address] [place], [address]. tel:[phone] Office/Outpa tient Visit,Est, Low [facility], [address], [place], [id number], [place] tel:[phone] [facility] Arthrodesis status Sp Stone. [facility], [address], [address], [id number], [place]. tel:[phone] Referring Provider: Prakash Mccauley, [facility] [address] [place], [address]. tel:[phone] Office/Outpa tient Visit,Est, Low [facility], [address], [place], [place], [id number], [place] tel:[phone] [facility] Encounter for other specified surgical aftercare Sp Stone. [facility], [address] [place] [address], [address], [id number], [place]. tel:[phone] Referring Provider: Prakash Mccauley, [facility] [address] [place], [address]. tel:[phone] [facility], [address] [place] [address], [id number], [place] tel:[phone] [facility] Encounter for other specified surgical aftercare Sp Stone. [facility], [address], [address], [id number], [place]. tel:[phone] Referring Provider: Prakash Mccauley, [facility] [address] [place], [address]. tel:[phone] [facility], [address], [place], [id number], [place] tel:[phone] [facility] Encounter for other specified surgical aftercare Sp Stone. [facility], [address], [address], [id number], [place]. tel:[phone] Referring Provider: Prakash Mccauley, [facility] [address] [place], [address]. tel:[phone] [facility], [address], [place], [place], [id number], [place] tel:[phone] [facility] No Information Chris Meneses. [facility], [address], [place], [address], [place]. tel:[phone] Referring Provider: Prakash Mccauley, [facility] [address] [place], [address]. tel:[phone] [facility], [address], [place], [place], [id number], [place] tel:[phone] [facility] No Information Sp Stone. [facility], [address] [place] [address], Ernesto [address] [place] [address], [id number], [place]. tel:[phone] Referring Provider: Prakash Mccauley, [facility] [address] [place], [address]. tel:[phone] Office/Outpa tient Visit,Est, Mod [facility], [address] [place] [address], [id number], [place] tel:[phone] [facility] Spinal stenosis, cervical region Sp tSone. [facility], [address], [facility] [address], [place], [place], [id number], [place]. tel:[phone] Referring Provider: Prakash Mccauley, [facility] [address] [place], [address]. tel:[phone] Office/Outpa tient Visit,New, Mod [facility], [address], [place], [id number], [place] tel:[phone] [facility] Postlaminect jasmine kyphosisSpin al stenosis, cervical regionArthro desis status No Information Referring Provider: Prakash Mccauley, [facility] [address] [place], [address]. tel:[phone] Office/Outpa tient Visit,Est, Mod Z [facility], [address], [place], [address], [place] tel:[phone] [facility] No Information 2 No Information Referring Provider: Prakash Mccauley, [facility] [address] [place], [address]. tel:[phone] Z [facility], [address], [place], [address], [place] tel:[phone] [facility] No Information 2 No Information Referring Provider: Prakash Mccauley, [facility] [address] [place], [address]. tel:[phone] Z [facility], [address] [facility] [address], [place], [address], [place] tel:[phone] [facility] No Information No Information Referring Provider: Prakash Mccauley, [facility] [address] [place], [address]. tel:[phone] Z [facility], [address] [facility] [address], [place], [address], [place] tel:[phone] [facility] LUPUS ERYTHEMATOSU SOsteopeniaA nxietyGERDCA TARACT NOS No Information Office/Outpa tient Visit,New, Mod Z [facility], [address], [place], [address], [place] tel:[phone] [facility] No Information No Information Referring Provider: Prakash Mccauley, [facility] [address] [place], [address]. tel:[phone] Family History Family Member Type Diagnosis Age At Onset Mother Problem (finding) hypothyroidism Father Problem (finding) Cancer, unknown Mother Problem (finding) hypertension Problem (finding) Family history of prost ate cancer Payers Payer name Insurance type Covered constitution party ID Avaa angus(s) [facility] [id number] Medicare [facility] [id number] 1 Social History Type Description Quantity Date [...]
--- OUTSIDE RECORDS SUMMARY | 2023-10-19 13:34 | XMS_ITS | Clinical Summary ---
Author Organization [facility] Address [address] [place] [address] Care Team Providers Care Maintainer Sewer And Waterworks Name Role Phone Elsewhere, Pcp Primary Care Provider Unavailabl e Source Comments Patient records contain information from all sites at [facility]. For routine questions regarding patient records, call [phone] during business hours, M-F 8:00 AM - 5:00 PM Central Time. Record requests for emergency care only can be directed to [phone] at any time.[facility] Allergies Active Allergy Reactions Criticality Noted Date [...] Description 08/30/2023 Refill Division of Rheumatology in [place], [place] [address] [place] [address] Brittany Jauregui APRN, C.N.P., M.S. Med Refill [...] any clubs o r organizations such as scientologist groups, unions, fraternal or athletic groups, or [...] place to sleep or slept in a fpc (including now)? No 11/21/2021 Nutrition Answer Date [...] Master's degree (e.g., MA, MS, Sariah, MEd, ADULT CAREGIVER, OFE) 12/22/2018 Sex and Gender Information Value [...] this topic Medical Devices Implanted Type Area Crystal Report Developer Device Identifier Shelf Expiration Date Model / Serial / Lot Hardware E.G. Pins/Screws/Mushtaq s Hardware e.g. pins/screws /rods Left: Mouth Description:Lower Left x 1 t ooth implant Hardware E.G. Pins/Screws/Mushtaq s Hardware e.g. pins/screws /rods N/A: Mouth Screw Biomet 3.5 Hex Lock 4.75 X 20 - Simmons [id number] Implanted:Qty: 1 on 06/15/2016 Hardware e.g. pins/screws /rods Other/Legacy - See Implant Description BioMet Description:Device Manufactu rer - [employer]. Body Location - Other. Left. Device Status Text - [id number]. Conversions - Default Historical Implant Device Implanted:06/15 [...] Imp. Biomet Glenospher 36mm Std. - Simmons [id number] Implanted:Qty: 1 on 06/15/2016 Shoulder Implant Other/Legacy - See Implant Description BioMet Description:Device Manufactu rer - Biomet Inc. Body Location - Other. Left. Device Status Text - [id number]. Biomet Hum. Bearing E1 Std 44-36 - Simmons [id number] Implanted:Qty: 1 on 06/15/2016 Shoulder Implant Other/Legacy - See Implant Description BioMet Description:Device Manufactu rer - Biomet Inc. Body Location - Other. Left. Device Status Text - [id number]. Biomet Glenoid Baseplate Mini W Adaptor - Simmons [id number] Implanted:Qty: 1 on 06/15/2016 Shoulder Implant Other/Legacy - See Implant Description BioMet Description:Device Manufactu rer - Biomet Inc. Body Location - Other. Left. Device Status Text - [id number]. Bio. Comp Micro Stem 6mm - Simmons [id number] Implanted:Qty: 1 on 06/15/2016 Shoulder Implant Other/Legacy - See Implant Description BioMet Description:Device Manufactu rer - Biomet Inc. Body Location - Other. Left. Device Status Text - [id number]. Biomet-Screw Central 6.5mm X 20mm - Simmons [id number] Implanted:Qty: 1 on 06/15/2016 Shoulder Implant Other/Legacy - See Implant Description BioMet Description:Device Manufactu rer - Biomet Inc. Body Location - Other. Left. Device Status Text - [id number]. Biomet Hum Tray Comp Rev 44mm Std - Simmons [id number] Implanted:Qty: 1 on 06/15/2016 Shoulder Implant Other/Legacy - See Implant Description BioMet Description:Device Manufactu rer - Biomet Inc. Body Location - Other. Left. Device Status Text - [id number]. Screw Biomet 3.5 Non-Lock 4.75 X 25 - Simmons [id number] Implanted:Qty: 1 on 06/15/2016 Shoulder Implant Other/Legacy - See Implant Description BioMet Description:Device Manufactu rer - Biomet Inc. Body Location - Other. Left. Device Status Text - SHOULDER-[id number]. Procedures Procedure Name Priority Date/Time Associated Diagnosis Comments CREATININE WITH EGFR, S/P Routine 04/27/2023 ELECTROLYTE (CHEM 4) PANEL, S/P Routine 07/20/2016 5:51 AM CDT from Last 3 Months or Most Recently Relevant to Health Maintenance Results * Creatinine with Estimated GFR (04/27/2023) EXT Creatinine 0.8 0.5 - 1.5 mg/dL [facility] Blood (Blood, Venous) El Aldana APRN, C.N.P. LAB BLOOD AD D-ON [facility] [address] [phone] * (ABNORMAL) Electrolyte (Chem 4) Panel (07/20/2016 5:51 AM CDT) Pathologist [facility] Sodium, S 142 135 - 145 MMOL/L [facility] Comment:Drawn From PICC Potassium, S 3.6 3.6 - 5.2 MMOL/L [facility] Comment:Drawn From PICC Creatinine 0.6 0.6 - 1.1 MG/DL [facility] Comment:Drawn From PICC BUN (Blood Urea Nitrogen), S 12 6 - 21 MG/DL [facility] Comment:Drawn From PICC Chloride, S 107 98 - 107 MMOL/L [facility] Comment:Drawn From PICC HX Bicarbonate, P/S 21(L) 22 - 29 MMOL/L [facility] Comment:Drawn From PICC Anion Gap 14 7 - 15 [facility] Comment:Drawn From PICC Glucose, S 90 70 - 140 MG/DL [facility] Comment:Drawn From PICC 07/20/2016 5:51 AM CDT 07/20/2016 5:51 AM CDT Narrative [facility] - 07/20/2016 6:49 AM CDT Drawn From PICC Aditya lE M.D. LAB BLOOD ADD-ON [facility] [address] [place] [address], [facility] from Last 3 Months or Most Recently Relevant to Health Maintenance Additional Health Concerns Infection Onset Date Last Indicated Protective Environment 08/17/2022 3 Advance Directives For more information, please contact: [phone] Documents on File Type Date Recorded Patient Aircraft Engine Assembler Expl anation Advance Directives 11/21/2021 5:50 PM JOSE T/JAYESH Advance Directives 07/10/2015 12:00 AM Ashly luong document. See document viewer. Care Teams Maintainer Sewer And Waterworks Relationship Specialty Start Date End Date Elsewhere, Pcp PCP - General Internal Medicine 11/20/21
--- OUTSIDE RECORDS SUMMARY | 2023-10-19 13:34 | XMS_ITS | Referral Summary ---
Author Organization [facility] Address [address] [place] [address] Care Team Providers Care Facilities Supervisor Name Role Phone Elsewhere, Pcp Primary Care Provider Unavailabl e Source Comments Patient records contain information from all sites at [facility]. For routine questions regarding patient records, call [phone] during business hours, M-F 8:00 AM - 5:00 PM Central Time. Record requests for emergency care only can be directed to [phone] at any time.[facility] Encounters Date Type Department Care Team Description 08/30/2023 Refill Division of Rheumatology in [place], [place] [address] [place] [address] Brittany Jauregui APRN, C.N.P., M.S. Med Refill [...] How often do you attend chur or quaker services? 1 to 4 times per year 11/21/2021 Do you belong to any clubs o r organizations such as adventism groups, unions, fraternal or athletic groups, or [...] and heating? Not hard at all 11/21/2021 [facility] - Occupational [...] Master's degree (e.g., MA, MS, Sariah, MEd, SURVEYOR HELPER, OFE) 12/22/2018 Sex and Gender Information [...] on file Medical Devices Implanted Type Area Director Of Nurses Registry Device Identifier Shelf Expiration Date Model / Serial / Lot Hardware E.G. Pins/Screws/Mushtaq s Hardware e.g. pins/screws /rods Left: Mouth Description:Lower Left x 1 t ooth implant Hardware E.G. Pins/Screws/Mushtaq s Hardware e.g. pins/screws /rods N/A: Mouth Screw Biomet 3.5 Hex Lock 4.75 X 20 - Simmons [id number] Implanted:Qty: 1 on 06/15/2016 Hardware e.g. pins/screws /rods Other/Legacy - See Implant Description BioMet Description:Device Manufactu rer - [employer] Body Location - Other. Left. Device Status Text - [id number]. Conversions - Default Historical Implant Device Implanted:06/15 [...] Imp. Biomet Glenospher 36mm Std. - Simmons [id number] Implanted:Qty: 1 on 06/15/2016 Shoulder Implant Other/Legacy - See Implant Description BioMet Description:Device Manufactu rer - Biomet Inc. Body Location - Other. Left. Device Status Text - SHOULDER-[id number]. Biomet Hum. Bearing E1 Std 44-36 - Simmons [id number] Implanted:Qty: 1 on 06/15/2016 Shoulder Implant Other/Legacy - See Implant Description BioMet Description:Device Manufactu rer - Biomet Inc. Body Location - Other. Left. Device Status Text - [id number]. Biomet Glenoid Baseplate Mini W Adaptor - Simmons [id number] Implanted:Qty: 1 on 06/15/2016 Shoulder Implant Other/Legacy - See Implant Description BioMet Description:Device Manufactu rer - Biomet Inc. Body Location - Other. Left. Device Status Text - SHOULDER-[id number]. Bio. Comp Micro Stem 6mm - Simmons [id number] Implanted:Qty: 1 on 06/15/2016 Shoulder Implant Other/Legacy - See Implant Description BioMet Description:Device Manufactu rer - Biomet Inc. Body Location - Other. Left. Device Status Text - SHOULDER-[id number]. Biomet-Screw Central 6.5mm X 20mm - Simmons [id number] Implanted:Qty: 1 on 06/15/2016 Shoulder Implant Other/Legacy - See Implant Description BioMet Description:Device Manufactu rer - Biomet Inc. Body Location - Other. Left. Device Status Text - SHOULDER-[id number]. Biomet Hum Tray Comp Rev 44mm Std - Simmons [id number] Implanted:Qty: 1 on 06/15/2016 Shoulder Implant Other/Legacy - See Implant Description BioMet Description:Device Manufactu rer - Biomet Inc. Body Location - Other. Left. Device Status Text - SHOULDER-[id number]. Screw Biomet 3.5 Non-Lock 4.75 X 25 - Simmons [id number] Implanted:Qty: 1 on 06/15/2016 Shoulder Implant Other/Legacy - See Implant Description BioMet Description:Device Manufactu rer - Biomet Inc. Body Location - Other. Left. Device Status Text - SHOULDER-[id number]. Procedures Procedure Name Priority Date/Time Associated Diagnosis Comments CREATININE WITH EGFR, S/P Routine 04/27/2023 ELECTROLYTE (CHEM 4) PANEL, S/P Routine 07/20/2016 5:51 AM CDT from Last 3 Months or Most Recently Relevant to Health Maintenance Results * Creatinine with Estimated GFR (04/27/2023) Pathologist [facility] EXT Creatinine 0.8 0.5 - 1.5 mg/dL [facility] Blood (Blood, Venous) Sabino Scott APRNNArmida LAB BLOOD AD D-ON [facility] [address] [phone] * (ABNORMAL) Electrolyte (Chem 4) Panel (07/20/2016 5:51 AM CDT) Pathologist [facility] Sodium, S 142 135 - 145 MMOL/L [facility] Comment:Drawn From PICC Potassium, S 3.6 3.6 - 5.2 MMOL/L [facility] Comment:Drawn From PICC Creatinine 0.6 0.6 - 1.1 MG/DL [facility] Comment:Drawn From PICC BUN (Blood Urea Nitrogen), S 12 6 - 21 MG/DL [facility] Comment:Drawn From PICC Chloride, S 107 98 - 107 MMOL/L [facility] Comment:Drawn From PICC HX Bicarbonate, P/S 21(L) 22 - 29 MMOL/L [facility] Comment:Drawn From PICC Anion Gap 14 7 - 15 [facility] Comment:Drawn From PICC Glucose, S 90 70 - 140 MG/DL [facility] Comment:Drawn From PICC 07/20/2016 5:51 AM CDT 07/20/2016 5:51 AM CDT Narrative [facility] - 07/20/2016 6:49 AM CDT Drawn From PICC Aditya El M.D. 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 See document viewer. Care Teams Facilities Supervisor Relationship Specialty Start Date End Date Elsewhere, Pcp PCP - General Internal Medicine 11/20/21
--- OUTSIDE RECORDS SUMMARY | 2023-10-19 13:34 | XMS_ITS | Encounter Summary ---
Author Organization [facility] Address [address] [place] [address] Care Team Providers Care Dump Grounds Checker Name Role Phone Elsewhere, Pcp Primary Care Provider Unavailabl e Reason for Visit * Reason Comments Med Refill Encounter Details Date Type Department Care Team (Late st Contact Info) Description 08/30/2023 Refill Division of Rheumatology in [place], [place] [address] [place] [address] Brittany Jauregui, EVE, C.N.P., M.S. [address] [place] [address] Med Refill Social History Tobacco Use Types [...] any clubs o r organizations such as amish groups, unions, fraternal or athletic groups, or [...] and heating? Not hard at all 11/21/2021 [facility] - Occupational [...] Master's degree (e.g., MA, MS, Sariah, MEd, CORPORATE RECEPTIONIST, OFE) 12/22/2018 Sex and Gender Information Value [...] VASC visit: 10/16/2022 with El Aldana APRN, ENGINEERING DEPARTMENT CHAIR Future office visit: ordered, not yet scheduled Last monitoring None Needed: Not required for medication renewal requested. Prescription request matches current plan of care. Prescription request does not match a current prescription in the Medication List. Exclusion criteria: None (If an alert appeared, it was determined to be an approved exception) ASSESSMENT/PLAN Prescription request requested refill denied . Call placed to [facility] to ask about requested refill. The pharmacist stated that the patients Prednisone has been prescribed by a local provider in [place], Dr. Prakash Moore and that the last [...] documented as of this encounter Care Teams Dump Grounds Checker Relationship Specialty Start Date End Date Elsewhere, Pcp PCP - General Internal Medicine 11/20/21 documented as of this encounter
--- OUTSIDE RECORDS SUMMARY | 2023-10-19 13:34 | XMS_ITS | Clinical Summary ---
Author Organization [facility] Address [place], [place] [address] Care Team Providers Care Tube Test Technician Name Role Phone Prakash Moore MD Primary Care Provider [phone] Allergies Active Allergy Reactions Criticality Noted Date [...] once daily. Active MULTIVITS W-FE,OTHER MIN (PEDIATRIC RXFYMALP-RAKF-MDS ORAL) Take by mouth once daily. Active [...] Description 10/07/2023 1:00 PM CDT Ancillary Procedure [facility] & [address] [address] from Last 3 Months Immunizations Name Administration [...] Comments Blood Pressure 110/69 07/14/2023 2:35 PM RESIDENTIAL LEASING AGENT Pulse 77 07/14/2023 2:35 PM RESIDENTIAL LEASING AGENT Temperature 36.5 ??C (97.7 ??F) 07/14/2023 2:35 PM CS T Respiratory Rate 16 05/24/2020 3:38 PM RESIDENTIAL LEASING AGENT Oxygen Saturation 98% 07/14/2023 2:35 PM RESIDENTIAL LEASING AGENT Inhaled Oxygen Concentration - - Weight 63.5 kg (140 lb) 05/24/2020 3:38 PM RESIDENTIAL LEASING AGENT Height 143.5 cm (4' 8.5) 09/21/2017 4:21 [...] 01/09/2024 02/12/2011 Medical Devices Implanted Type Area Filleter Device Identifier Shelf Expiration Date Model / Serial / Lot [id number] 1-4mm 30cc Medtronic Chips Canclls Freeze Dried Implanted:Qty: 1 on 09/23/2017 by Chase Snowden MD at [facility] Explanted:at [facility] (Quantity not on file) N/A: Spine Medtronic Spine/Ortho 09/30/2021 [id number] / [id number] / Plate Ti Occipital 50mm Implanted:Qty: 1 on 09/23/2017 by Chase Snowden MD at [facility] N/A: Spine 04.161.001 / / Description:PLATE TI OCCIPIT AL 50MM Screw Occipital Ti 4.5 X 8 Implanted:Qty: 1 on 09/23/2017 by Chase Snowden MD at [facility] N/A: Spine 04.601.108 / / Description:SCREW OCCIPITAL TI 4.5 X 8 Screw Occipital Ti 4.5 X 10 Implanted:Qty: 1 on 09/23/2017 by Chase Snowden MD at [facility] N/A: Spine 04.601.110 / / Description:SCREW OCCIPITAL TI 4.5 X 10 Screw Cerv Post 4.5x14mm Synapse Va Canncls Titnm Implanted:Qty: 1 on 09/23/2017 by Chase Snowden MD at [facility] N/A: Spine 04.614.214 / / Description:SCREW CERV POST 4.5X14MM SYNAPSE VA CANNCLS TITNM Mushtaq Pre-Bent 3.4c761lh Titnm - [id number] Implanted:Qty: 2 on 09/23/2017 by Chase Snowden MD at [facility] N/A: Spine J And J Depuy Spine 04.161.032 # / / Set Screw Cerv Axon - [id number] Implanted:Qty: 2 on 09/23/2017 by Chase Snowdne MD at [facility] N/A: Spine J And J Depuy Spine 406.104# / / Screw Cerv Post 4x10mm Synapseva Canncls Titnm - [id number] Implanted:Qty: 1 on 09/23/2017 by Chase Snowden MD at [facility] N/A: Spine J And J Depuy Spine 04.614.110 # / / Screw Cerv Post 4x12mm Synapseva Canncls Titnm - [id number] Implanted:Qty: 2 on 09/23/2017 by Chase Snowden MD at [facility] N/A: Spine J And J Depuy Spine 04.614.112 # / / Screw Cerv Post 4.5x10mm Synapse Va Canncls Titnm - [id number] Implanted:Qty: 1 on 09/23/2017 by Chase Snowden MD at [facility] N/A: Spine J And J Depuy Spine 04.614.210 # / / Screw Cerv Post 4.5x26mm Synapse Va Canncls Titnm - [id number] Implanted:Qty: 1 on 09/23/2017 by Chase Snowden MD at [facility] N/A: Spine J And J Depuy Spine 04.614.226 # / / Screw Cerv Post 4.5x28mm Synapse Va Canncls Titnm - [id number] Implanted:Qty: 3 on 09/23/2017 by Chase Snowden MD at [facility] N/A: Spine J And J Depuy Spine 04.614.228 # / / Set Screw Cerv Synapse - [id number] Implanted:Qty: 9 on 09/23/2017 by Chase Snowden MD at [facility] N/A: Spine J And J Depuy Spine [...] PM CDT ECHOCARDIOGRAM SHILPI HALL ?Accession#: ?? [id number] : ?1945 78 years Study Date: ?? 10/07/2023 12:39:06 PM Gender: F ? BP: ? 109/70 mmHg Height: 140.00 cm ? BSA: ?1.46 m? ? ? Weight: 59.00 kg ?Tech: ? MJJ ?Referring MD: NICK GARCIA Site: ? [facility] Reading Location: [facility] Patient Location: Inpatient. Procedure: 2D, Spectral Doppler [...] . This study was interpreted by an [facility] accredited facility. CC: HIM (med records) [facility], Med/Surg - IP [facility]. ??Final ?? Procedure Note Tarun Coppola MD - 10/07/2023 ECHOCARDIOGRAM SHILPI HALL : 1945 78 years Study Date: 10/07/2023 12:39:06 PM Gender: F BP: 109/70 mmHg Height: 140.00 cm BSA: 1.46 m? ? ? Weight: 59.00 kg Tech: PAUL Referring MD: NICK GARCIA Site: [facility] Reading Location: [facility] Patient Location: Inpatient. Procedure: 2D, Spectral Doppler [...] [facility] accredited facility. CC: HIM (med records) [facility], Med/Surg - IP [facility]. Final Nick Garcia MD ECHO ORD from Last 3 Months Advance Directives * Full Code (Latest Code Status on File) Date Activated Date Inactivated Comments 09/23/2017 7:47 PM 09/28/2017 12:30 PM Care Teams Tube Test Technician Relationship Specialty Start Date End Date Prakash Moore MD [address] [phone] PCP - General Family Practice 09/20/17
--- OUTSIDE RECORDS SUMMARY | 2023-10-19 13:34 | XMS_ITS ---
Author Organization [facility] Address [address] [place] [address] Care Team Providers Care Superintendent Concrete Mixing Plant Name Role Phone Unavailable Unavailable Unavailable Surgery Details Not on file Complications Check Surgery Details section. Procedure Estimated Blood Loss Check Surgery Details section. Procedure Findings Check Surgery Details section. Procedure Specimens Taken Check Surgery Details section.
== END 2023-10-19 13:30 | disposition home or self-care (01) ==
LOC: NFLDREF 13:31
PROVIDERS: PCP Family Medicine; Visit Provider Family Medicine
DX: E87.6 Hypokalemia (principal)
CPT/HCPCS: 80048

== ENCOUNTER 2024-02-11 11:46 | Outpatient (CLI) | payer MEDICARE, BC, SELFPAY ==
--- OUTSIDE RECORDS SUMMARY | 2024-02-14 23:08 | XMS_ITS | Clinical Summary ---
Author Organization [facility] Address [place], [place] [address] Care Team Providers Care Ice Skating Instructor Name Role Phone Prakash Moore MD Primary Care Provider [phone] Allergies Active Allergy Reactions Criticality Noted Date [...] once daily. Active MULTIVITS W-FE,OTHER MIN (PEDIATRIC [id number] ORAL) Take by mouth once daily. Active [...] Description 01/26/2024 3:15 PM CDT Office Visit [facility] [address] [place] [address] Saran Arias DPMk Follow Up (Right foot ulcer, 2 week follow up) 01/26/2024 Travel 01/11/2024 1:30 PM CDT Office Visit [facility] [address] [place] [address] Saran Arias DPMk Ulcer (Follow up-right foot) 01/11/2024 Travel 01/06/2024 Telephone [facility] [address] [facility] [place] [address] Saran Arias DPMk Anticoagulation (BPA Ciprofloxacin and Warfarin) 01/06/2024 Telephone [facility] [address] [facility] [place] [address] Saran Arias DPM Foot Problem (PAINFUL MEDICATION ) 01/04/2024 1:30 PM CDT Office Visit [facility] [address] [place] [address] Saran Arias DPM Follow Up (Right ulcer check) 01/04/2024 Travel 12/31/2023 Telephone [facility] [address] [place] [address] Saran Arias DPM Questions 12/31/2023 Telephone [facility] [address] [place] [address] Saran Arias DPM Anticoagulation (BPA: CIPROFLOXACIN ) 12/31/2023 Orders Only [address] [address] Saran Arias DPM <No scans attached> 12/28/2023 2:30 PM CDT Office Visit [facility] [address] [place] [address] Saran Arias DPM Ulcer (Follow up-right foot) 12/28/2023 Travel 12/08/[address] [address] Saran Arias DPM Appointment (FOLLOW-UP) 11/17/2023 10:45 AM CDT Office Visit [address] [address] Saran Arias DPM Ulcer (Follow up-right foot) [...] T Respiratory Rate 16 05/24/2020 3:38 PM RETORT FIREMAN Oxygen Saturation 94% 01/26/2024 3:11 PM CDT Inhaled Oxygen Concentration - - Weight 63.5 kg (140 lb) 05/24/2020 3:38 PM RETORT FIREMAN Height 143.5 cm (4' 8.5) 09/21/2017 4:21 PM CDT Body Mass Index 30.83 09/21/2017 4:21 PM CDT Plan of Treatment Upcoming Encounters Date Type Department Care Team (Late st Contact Info) Description 02/16/2024 1:45 PM CDT Office Visit [facility] [address] [place] [address] Saran Arias DPM [address] [place] [address] Health Maintenance Due Date Last Done Comments [...] 01/09/2024 02/12/2011 Medical Devices Implanted Type Area Elementary Math Tutor Device Identifier Shelf Expiration Date Model / Serial / Lot [id number] 1-4mm 30cc Medtronic Chips Canclls Freeze Dried Implanted:Qty: 1 on 09/23/2017 by Chase Snowden MD at [facility] Explanted:at [facility] (Quantity not on file) N/A: Spine Medtronic Spine/Ortho 09/30/2021 [id number] / [id number] / Plate Ti Occipital 50mm Implanted:Qty: 1 on 09/23/2017 by Chase Snowden MD at [facility] N/A: Spine 04.161.001 / / Description:PLATE TI OCCIPIT AL 50MM Screw Occipital Ti 4.5 X 8 Implanted:Qty: 1 on 09/23/2017 by Chase Snowden MD at [facility] N/A: Spine 04.601.108 / / Description:SCREW OCCIPITAL TI 4.5 X 8 Screw Occipital Ti 4.5 X 10 Implanted:Qty: 1 on 09/23/2017 by Chase Snowden MD at [facility] N/A: Spine 04.601.110 / / Description:SCREW OCCIPITAL TI 4.5 X 10 Screw Cerv Post 4.5x14mm Synapse Va Canncls Titnm Implanted:Qty: 1 on 09/23/2017 by Chase Snowden MD at [facility] N/A: Spine 04.614.214 / / Description:SCREW CERV POST 4.5X14MM SYNAPSE VA CANNCLS TITNM Mushtaq Pre-Bent 3.2j287rh Titnm - [id number] Implanted:Qty: 2 on 09/23/2017 by Chase Snowden MD at [facility] N/A: Spine J And J Depuy Spine 04.161.032 # / / Set Screw Cerv Axon - [id number] Implanted:Qty: 2 on 09/23/2017 by Chase Snowden MD at [facility] N/A: Spine J And J Depuy Spine 406.104# / / Screw Cerv Post 4x10mm Synapseva Canncls Titnm - [id number] Implanted:Qty: 1 on 09/23/2017 by Chase Snowden MD at [facility] N/A: Spine J And J Depuy Spine 04.614.110 # / / Screw Cerv Post 4x12mm Synapseva Canncls Titnm - [id number] Implanted:Qty: 2 on 09/23/2017 by Chase Snowden MD at [facility] N/A: Spine J And J Depuy Spine 04.614.112 # / / Screw Cerv Post 4.5x10mm Synapse Va Canncls Titnm - [id number] Implanted:Qty: 1 on 09/23/2017 by Chase Snowden MD at [facility] N/A: Spine J And J Depuy Spine 04.614.210 # / / Screw Cerv Post 4.5x26mm Synapse Va Canncls Titnm - [id number] Implanted:Qty: 1 on 09/23/2017 by Chase Snowden MD at [facility] N/A: Spine J And J Depuy Spine 04.614.226 # / / Screw Cerv Post 4.5x28mm Synapse Va Canncls Titnm - [id number] Implanted:Qty: 3 on 09/23/2017 by Chase Snowden MD at [facility] N/A: Spine J And J Depuy Spine 04.614.228 # / / Set Screw Cerv Synapse - [id number] Implanted:Qty: 9 on 09/23/2017 by Chase Snowden MD at [facility] N/A: Spine J And J Depuy Spine [...] * CARBA-R TESTING (12/28/2023 2:44 PM CDT) [facility] (carbapenem-r esistance gene) NOT Detected NOT Detected, N/A 12/31/2023 7:40 AM CDT [facility] IMP (carbapenem-r esistance gene) NOT Detected NOT Detected, N/A 12/31/2023 7:40 AM CDT [facility] NDM (carbapenem-r esistance gene) NOT Detected NOT Detected, N/A 12/31/2023 7:40 AM CDT [facility] OXA-48 like (carbapenem-r esistance gene) NOT Detected NOT Detected, N/A 12/31/2023 7:40 AM CDT [facility] VIM (carbapenem-r esistance gene) NOT Detected NOT Detected, N/A 12/31/2023 7:40 AM CDT [facility] Organism Pseudomonas aeruginosa 12/31/2023 7:40 AM CDT [facility] Other (Other) Non-Blood / Unknown 12/28/2023 2:44 PM CDT 12/28/2023 3:00 PM CDT Narrative [facility] - 12/31/2023 7:40 AM CDT Decreased carbapenem susceptibility likely due to changes in porin expression and/or efflux pump mechanisms. Saran Arias DPM MICROBIOLOGY [facility] [address] [place] [address], * (ABNORMAL) AEROBIC BACTERIAL CULTURE, STAIN (12/28/2023 2:44 PM CDT) CULTURE RESULT(A) 01/01/2024 10:19 AM CDT [facility] CULTURE 2+ Staphylococcus aureus 01/01/2024 10:19 AM CDT [facility] CULTURE 1+ Pseudomonas aeruginosa 01/01/2024 10:19 AM CDT [facility] Comment:See resistance-gene testing (CARBA-R) CULTURE 1+ Mixed ata present 01/01/2024 10:19 AM CDT [facility] GRAM STAIN No Epithelial cells 01/01/2024 10:19 AM CDT [facility] GRAM STAIN No RBCs 01/01/2024 10:19 AM CDT [facility] GRAM STAIN No PMNs 01/01/2024 10:19 AM CDT [facility] GRAM STAIN No organisms seen 024 10:19 AM CDT [facility] Other (Other) Non-Blood / Unknown 12/28/2023 2:44 PM CDT 12/28/2023 3:00 PM CDT Narrative [facility] - 01/01/2024 10:19 AM CDT Mixed [...] MEROPENEM 8: R Saran Arias DPM MICROBIOLOGY [facility] [address] [place] [address], from Last 3 Months Additional Health Concerns Infection Onset Date Last Indicated RESOURCE DEVELOPMENT DIRECTOR 12/28/2023 12/28/2023 Advance Directives * Full Code (Latest Code Status on File) Date Activated Date Inactivated Comments 09/23/2017 7:47 PM 09/28/2017 12:30 PM Care Teams Ice Skating Instructor Relationship Specialty Start Date End Date Prakash Moore MD [address] [place] [address] PCP - General Family Practice 09/20/17
--- OUTSIDE RECORDS SUMMARY | 2024-02-14 23:08 | XMS_ITS | Continuity of Care Document ---
Author Organization [facility] Address [address] [place] [address] Phone Care Team Providers Care Transportation Job Titles Name Role Phone Chase Snowden MD Unavailable [...] Seg Office/Outpatient Visit,Est, Mod 2017 Office/Outpatient Visit,[place], [facility] 2017 Office/Outpatient Visit,Est, Mod 2011 Postop Followup Visit Remove Lumbar Spine Lamina, 1 Seg Pa Assist Remove Lumbar Spine Lamina, 1 Seg Office/Outpatient Visit,New, Mod 2011 X-Ray Exam Lwr Spine, Min 4 Views Advance Directives Directive Yes / No Effective Date File Name No Information Encounters Encounter Description Practice Location Reason(s) For Visit Diagnoses Date Provider Providers Copied on Encounter [facility], [address] [place] [address], [id number], [place] tel:[phone] No Information 1 Sp Stone. [facility] [place], [address] [place] [address], [id number], . [phone] [facility], [address] [place] [address], [id number], [place] tel:[phone] [facility] Arthrodesis status 1 No Information Office/Outpa tient Visit,Est, Mod [facility], [address] [place] [address], [id number], [place] tel:[phone] [facility] No Information 1 No Information Referring Provider: Prakash Mccauley, [facility] [address] [place], [address]. tel:[phone] Office/Outpa tient Visit,Est, Mod [facility], [address] [place] [address], [id number], [place] tel:[phone] [facility] Arthrodesis status 0 Sp Stone. [facility] [place], [address] [place] [address], [id number], [place]. tel:[phone] Referring Provider: Prakash Mccauley, [facility] [address] [place], [address]. tel:[phone] Office/Outpa tient Visit,Est, Mod [facility], [address] [place] [address], [id number], [place] tel:[phone] [facility] Kyphosis 0 Sp Stone. [facility] [place], [address] [place] [address], [id number], [place]. tel:[phone] Referring Provider: Prakash Mccauley, [facility] [address] [place], [address]. tel:[phone] Office/Outpa tient Visit,Est, Low [facility], [address], [place], [id number], [place] tel:[phone] [facility] Arthrodesis status Sp Stone. [facility] [place], [address], [address], [id number], [place]. tel:[phone] Referring Provider: Prakash Mccauley, [facility] [address] [place], [address]. tel:[phone] Office/Outpa tient Visit,Est, Low [facility], [address], [place], [place], [id number], [place] tel:[phone] [facility] Encounter for other specified surgical aftercare Sp Stone. [facility] [place], [address] [place] [address], [address], [id number], [place]. tel:[phone] Referring Provider: Prakash Mccauley, [facility] [address] [place], [address]. tel:[phone] [facility], [address] [place] [address], [id number], [place] tel:[phone] [facility] Encounter for other specified surgical aftercare Sp Stone. [facility] [place], [address], [address], [id number], [place]. tel:[phone] Referring Provider: Prakash Mccauley, [facility] [address] [place], [address]. tel:[phone] [facility], [address], [place], [id number], [place] tel:[phone] [facility] Encounter for other specified surgical aftercare Sp Stone. [facility] [place], [address], [address], [id number], [place]. tel:[phone] Referring Provider: Prakash Mccauley, [facility] [address] [place], [address]. tel:[phone] [facility], [address], [place], [place], [id number], [place] tel:[phone] [facility] No Information Chris Meneses. [facility], [address], [place], [address], [place]. tel:[phone] Referring Provider: Prakash Mccauley, [facility] [address] [place], [address]. tel:[phone] [facility], [address], [place], [place], [id number], [place] tel:[phone] [facility] No Information Sp Stone. [facility] [place], [address] [place] [address], Ernesto [address] [place] [address], [id number], [place]. tel:[phone] Referring Provider: Prakash Mccauley, [facility] [address] [place], [address]. tel:[phone] Office/Outpa tient Visit,Est, Mod [facility], [address] [place] [address], [id number], [place] tel:[phone] [facility] Spinal stenosis, cervical region Sp Stone. [facility] [place], [address], [facility] [address], [place], [place], [id number], [place]. tel:[phone] Referring Provider: Prakash Mccauley, [facility] [address] [place], [address]. tel:[phone] Office/Outpa tient Visit,New, Mod [facility], [address], [place], [id number], [place] tel:[phone] [facility] Postlaminect jasmine kyphosisSpin al stenosis, cervical regionArthro desis status No Information Referring Provider: Prakash Mccauley, [facility] [address] [place], [address]. tel:[phone] Office/Outpa tient Visit,Est, Mod Z [facility], [address], [place], [address], [place] tel:[phone] [facility] No Information 2 No Information Referring Provider: Prakash Mccauley, [facility] [address] [place], [address]. tel:[phone] Z [facility], [address], [place], [address], [place] tel:[phone] [facility] No Information 2 No Information Referring Provider: Prakash Mccauley, [facility] [address] [place], [address]. tel:[phone] Z [facility], [address] [facility] [address], [place], [address], [place] tel:[phone] [facility] No Information No Information Referring Provider: Prakash Mccauley, [facility] [address] [place], [address]. tel:[phone] [facility], [address] [facility] [address], [place], [address], [place] tel:[phone] [facility] LUPUS ERYTHEMATOSU SOsteopeniaA nxietyGERDCA TARACT NOS No Information Office/Outpa tient Visit,New, Mod Z [facility], [address], [place], [address], [place] tel:[phone] [facility] No Information No Information Referring Provider: Prakash Mccauley, [facility] [address] [place], [address]. tel:[phone] Family History Family Member Type Diagnosis Age At Onset Mother Problem (finding) hypothyroidism Father Problem (finding) Cancer, unknown Mother Problem (finding) hypertension Problem (finding) Family history of prost ate cancer Payers Payer name Insurance type Covered alliance party ID Avaa angus(s) [facility] [id number] Medicare [facility] [id number] 1 Social History Type Description Quantity Date [...]
== END 2024-02-11 11:47 | disposition home or self-care (01) ==
LOC: AMB 02-14 23:06
PROVIDERS: PCP Family Medicine; Visit Provider Emergency Medicine Emergency Medical Services
DX: L03.116 Cellulitis of left lower limb (principal)
CPT/HCPCS: A0425; A0427

== ENCOUNTER 2024-02-11 12:26 | Emergency (ER) | payer MEDICARE, BC, SELFPAY ==
[2024-02-11 12:22] VITALS: BP 132/95; PULSE 94; RESP 16; TEMP 37; O2SAT 96; BMI 26.3
--- NOTE | 2024-02-11 12:51 | ED.GENADULT ---
HPI - General Adult General Chief complaint: Extremity Pain/Injury, Lower Stated complaint: cellulitis History of Present Illness HPI narrative: This 78-year-old female comes in with family member with concern about possibility of cellulitis in her lower extremities. She has a history of cellulitis usually on the left leg when it occurs. She does have bilateral lower extremity erythema. She recently had her upper teeth removed and has bruising around her mouth as she is on warfarin. She is currently taking clindamycin because of the teeth extractions. She arrives here with reassuring vital signs. Related Data Home Medications ?Medication ?Instructions ?Recorded ?Confirmed melatonin 3 mg capsule 3 mg PO HS PRN 01/13/22 11/29/23 levothyroxine 25 mcg tablet 25 mcg PO DAILY 06/05/23 11/29/23 loratadine 10 mg tablet 10 mg PO DAILY allergic symptoms 06/05/23 11/29/23 magnesium oxide 400 mg PO DAILY@12 06/05/23 11/29/23 clobetasol 0.05 % lotion 1 applic topical BID PRN 07/13/23 11/29/23 estradiol 0.01% (0.1 mg/gram) 0.5 g vaginal QDAY 10/19/23 11/29/23 vaginal cream clindamycin HCl 300 mg capsule 300 mg PO 3XD 02/11/24 02/11/24 Previous Rx's ?Medication ?Instructions ?Recorded bupropion HCl 150 mg 24 hr tablet, 150 mg PO DAILY #90 tabs 02/25/23 extended release furosemide 40 mg tablet 40 mg PO DAILY #90 tabs 02/25/23 losartan 25 mg tablet 25 mg PO DAILY #90 tabs 02/25/23 gabapentin 400 mg capsule 1,200 mg (3 x 400 mg) PO BID #540 05/14/23 caps hydroxychloroquine 200 mg tablet 200 mg PO .Daily At 12:00PM #90 11/23/23 tabs prednisone 10 mg tablet 10 mg PO DAILY #90 tabs 11/24/23 warfarin 3 mg tablet 1.5 mg PO DAILY #90 tabs 12/14/23 omeprazole 20 mg capsule,delayed 20 mg PO DAILY #90 caps 01/14/24 release potassium chloride 10 mEq 10 meq PO BID #60 caps 01/14/24 capsule,extended release hydrocodone 5 mg-acetaminophen 325 1 tab PO QDAY pain 30 days #30 tabs 01/16/24 mg tablet metoprolol succinate 25 mg 25 mg PO DAILY #90 tabs 01/18/24 tablet,extended release 24 hr ondansetron 4 mg disintegrating 4 mg PO Q6H #10 tabs 02/11/24 tablet Allergies Allergy/AdvReac Type Severity Reaction Status Date / Time amitriptyline Allergy Severe disorientat Verified 11/29/23 12:40 ion penicillin V Allergy Severe upset Verified 11/29/23 12:40 stomach and rash perphenazine Allergy Severe disorientat Verified 11/29/23 12:40 ion adhesive Allergy Unknown Unknown Verified 11/29/23 12:40 bee venom protein (honey bee) AdvReac Severe Anaphylaxis Verified 11/29/23 12:40 latex AdvReac Severe Rash Verified 11/29/23 12:40 amoxicillin AdvReac Intermediate Diarrhea Verified 11/29/23 12:40 Tricyclic antidepressant Allergy Severe disorientat Uncoded 11/29/23 12:40 ion Bee venom Allergy Mild swells and Uncoded 11/29/23 12:40 area turns red Sulfa drugs Allergy Unknown Unknown Uncoded 11/29/23 12:40 Clavulanate AdvReac Intermediate Diarrhea Uncoded 11/29/23 12:40 Review of Systems Status of ROS: Reports: 10 or more systems reviewed and unremarkable except as noted in History and below Narrative: Constitutional: No fevers, no weight gain or loss. Eyes: No discharge. No vision changes. HENT: No congestion, no sore throat, no ear pain. Recent dental extractions. Cardiovascular: No chest pain, no palpitations. Respiratory: No shortness of breath, no wheezes, no cough. Gastrointestinal: No abdominal pain, no vomiting, no diarrhea. Genitourinary: No dysuria, no hematuria. Musculoskeletal: Normal range of motion. Skin: No rashes, no pruritis. Erythema and lower extremities. Neurological: No dizziness, weakness, sensory change, speech change. Endo/Heme/Allergies: No polydipsia. Pysch: no suicidality, no anxiety, no insomnia. All other systems reviewed and are negative. [facility] Medical History (Updated 02/11/24 @ 12:56 by Alpesh Freeman MD) Systemic lupus erythematosus ?M32.9 - Systemic lupus erythematosus, unspecified (ICD-10) Heart failure ?I50.9 - Heart failure, unspecified (ICD-10) Elevated troponin ?R79.89 - Other specified abnormal findings of blood chemistry (ICD-10) Frailty syndrome in geriatric patient ?R54 - Age-related physical debility (ICD-10) Cognitive impairment ?R41.89 - Other symptoms and signs involving cognitive functions and awareness (ICD-10) Heart failure ?I50.9 - Heart failure, unspecified (ICD-10) DVT (deep venous thrombosis) ?I82.409 - Acute embolism and thrombosis of unspecified deep veins of unspecified lower extremity (ICD-10) 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, unspecified (ICD-10) Urinary tract infection ?N39.0 - Urinary tract infection, site not specified (ICD-10) Anemia due to gastrointestinal blood loss ?D50.0 - Iron deficiency anemia secondary to blood loss (chronic) (ICD-10) Anemia of chronic disease ?D63.8 - Anemia in other chronic diseases classified elsewhere (ICD-10) Atrial fibrillation with rapid ventricular response ?I48.91 - Unspecified atrial fibrillation (ICD-10) Atrial fibrillation ?I48.91 - Unspecified atrial fibrillation (ICD-10) Hypothyroidism ?E03.9 - Hypothyroidism, unspecified (ICD-10) Left leg cellulitis ?L03.116 - Cellulitis of left lower limb (ICD-10) Psoriasis ?L40.9 - Psoriasis, unspecified (ICD-10) Anemia ?D64.9 - Anemia, unspecified (ICD-10) Yeast dermatitis ?B37.2 - Candidiasis of skin and nail (ICD-10) Environmental allergies ?Z91.09 - Other allergy status, other than to drugs and biological substances (ICD-10) Osteoarthritis of left hip ?M16.12 - Unilateral primary osteoarthritis, left hip (ICD-10) Osteoarthritis of right knee ?M17.11 - Unilateral primary osteoarthritis, right knee (ICD-10) Osteoarthritis of right shoulder ?M19.011 - Primary osteoarthritis, right shoulder (ICD-10) Urethral caruncle ?N36.2 - Urethral caruncle (ICD-10) Weakness ?R53.1 - Weakness (ICD-10) Unsteady gait ?R26.81 - Unsteadiness on feet (ICD-10) Tubular adenoma ?D36.9 - Benign neoplasm, unspecified site (ICD-10) Spinal stenosis ?M48.00 - Spinal stenosis, site unspecified (ICD-10) 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81 - Other malaise (ICD-10) Physical debility ?R53.81 - Other malaise (ICD-10) Peripheral edema (05/12/10) ?R60.9 - Edema, unspecified (ICD-10) Osteopenia (05/26/11) ?M85.80 - Other specified disorders of bone density and structure, unspecified site (ICD-10) Nonspecific colitis ?K52.9 - Noninfective gastroenteritis and colitis, unspecified (ICD-10) Long-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 - Immunodeficiency due to drugs (ICD-10) ?T38.0X5A - Adverse effect of glucocorticoids and synthetic analogues, initial encounter (ICD-10) ?Z79.52 - [facility] (current) use of systemic steroids (ICD-10) Hypokalemia ?E87.6 - Hypokalemia (ICD-10) Hypertension (08/16/12) ?I10 - Essential (primary) hypertension (ICD-10) Hyperlipidemia ?E78.5 - Hyperlipidemia, unspecified (ICD-10) High C-reactive protein ?R79.82 - Elevated C-reactive protein (CRP) (ICD-10) Health care directive on file (07/05/15) ?Z78.9 - Other specified health status (ICD-10) Gastroesophageal reflux disease (04/11/10) ?K21.9 - Gastro-esophageal reflux disease without esophagitis (ICD-10) Dilated cardiomyopathy (05/12/10) ?I42.0 - Dilated cardiomyopathy (ICD-10) Dilated bile duct ?K83.8 - Other specified diseases of biliary tract (ICD-10) Depression (08/16/12) ?F32.A - Depression, unspecified (ICD-10) Constipation ?K59.00 - Constipation, unspecified (ICD-10) Colitis ?K52.9 - Noninfective gastroenteritis and colitis, unspecified (ICD-10) Chronic pain syndrome ?G89.4 - Chronic pain syndrome (ICD-10) Chronic pain ?G89.29 - Other chronic pain (ICD-10) Cellulitis ?L03.90 - Cellulitis, unspecified (ICD-10) Anxiety (04/11/10) ?F41.9 - Anxiety disorder, unspecified (ICD-10) Anticoagulation goal of INR 2 to 3 ?Z51.81 - Encounter for therapeutic drug level monitoring (ICD-10) ?Z79.01 - [facility] (current) use of anticoagulants (ICD-10) Abnormal liver function tests ?R79.89 - Other specified abnormal findings of blood chemistry (ICD-10) Long-term (current) use of anticoagulants, INR goal 2.0-3.0 ?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 - 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 inspector (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) use of anticoagulants (ICD-10) Knee osteoarthritis ?M17.10 - Unilateral primary osteoarthritis, unspecified knee (ICD-10) POLST (Physician Orders for Life-Sustaining Treatment) ?Z78.9 - Other specified health status (ICD-10) Irritation of right ear ?H93.8X1 - Other specified disorders of right ear (ICD-10) History of pulmonary embolism (2017) ?Z86.711 - Personal history of pulmonary embolism (ICD-10) History of peptic ulcer ?Z87.11 - Personal history of peptic ulcer disease (ICD-10) History of deep vein thrombosis (DVT) of lower extremity (2017) ?Z86.718 - Personal history of other venous thrombosis and embolism (ICD-10) Head injury with loss of consciousness ?S06.9X9A - Unspecified intracranial injury with loss of consciousness of unspecified duration, initial encounter (ICD-10) Surgical History S/P foot surgery, right (08/28/14) ?Z98.890 - Other specified postprocedural states (ICD-10) 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) ?Z96.619 - Presence of unspecified artificial shoulder joint (ICD-10) Status post lumbar spinal fusion (04/11/10) ?Z98.1 - Arthrodesis status (ICD-10) Status post cervical spinal arthrodesis (09/2017) ?Z98.1 - Arthrodesis status (ICD-10) History of total hip replacement (05/12/10) ?Z96.649 - Presence of unspecified artificial hip joint (ICD-10) History of left knee replacement (05/12/10) ?Z96.652 - Presence of left artificial knee joint (ICD-10) History of hysterectomy (04/11/10) ?Z90.710 - Acquired absence of both cervix and uterus (ICD-10) History of colonoscopy (05/18/19) ?Z98.890 - Other specified postprocedural states (ICD-10) History of cholecystectomy (05/12/10) ?Z90.49 - Acquired absence of other specified parts of digestive tract (ICD-10) Family History Brother Coronary artery disease Father Cancer Social History Narrative: Patient lives at [facility], independent living at [facility]. She is . 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 Her daughter, Giselle, lives in the area. Code status is DNR/DNI. Healthcare power of admitted attorneys is her daughter Giselle from [place]. She quit smoking in 1996. Has been chewing nicotine gum since then. She says she chews pieces constantly throughout the day and is never without a piece in her mouth. She does not drink alcohol. What is your current living situation?: I presently have a place to live Problems where you live: no known problems Problems where you live details: N/A In the past 12 months, utilities in danger of being shut off: no In past 12 months, lack of transportation kept you from medical appts, meetings, work, or getting things needed for daily living: no In the past 12 mos, have been you worried that your food would run out before you had money to buy more?: never true In the past 12 mos, the food you bought just didn't last and you didn't have money to buy more?: never true Highest level of school completed/degree received: 12th grade, no diploma Smoking Status: Never smoker Second hand tobacco smoke exposure: No How often do you have a drink containing alcohol: never How often do you have six or more drinks on one occasion: Never AUDIT-C Alcohol total score: 0 Non-prescribed substance use: denies use Caffeine: Yes (4-5 cups daily) How often does anyone, including family, friends and others, physically hurt you: never How often does anyone, including family, friends and others, insult or talk down to you: never How often does anyone, including family, friends and others, threaten you with harm: never How often does anyone, including family, friends and others, scream or curse at you: never Little interest or pleasure in doing things: several days Feeling down, depressed, or hopeless: more than half the days service: No Exam Narrative: Exam Narrative: Constitutional: Well-developed, well-nourished, no acute distress. HEENT: Normocephalic, atraumatic. Neck: Normal range of motion. Nontender. Supple. Heart: Regular. No murmurs. Normal rate. Intact distal pulses. Lungs: Clear to auscultation. No chest discomfort. No wheezes, rhonchi, or rales. Abdomen: Normal bowel sounds. Nontender. No rebound tenderness. Genitalia: Deferred. Back: No midline tenderness. Normal range of motion. Extremities: Normal range of motion. No injury. Lower extremities have erythema extending from mid way between knees and ankles down into her feet bilaterally. Skin: Intact. No rash. Warm. No erythema or pallor. Neurologic: No altered sensation. No weakness. Alert and oriented. Psychiatric: No suicidality. No anxiety or depression. No insomnia. Nursing notes and vitals signs are reviewed. Const: Vital Signs, click to edit/add: Vital Signs - 24 hr 02/11/24 12:22 Temperature 98.6 F Pulse Rate [Pulse Oximeter] 94 Respiratory Rate 16 Blood Pressure [Ri ght Upper Arm] 132/95 H Pulse Oximetry 96 Oxygen Delivery Me thod Room Air Course Vital Signs Vital signs: Initial Vital Signs Temperature 98.6 F 02/11/24 12:22 Temperature Source Temporal Artery Scan 02/11/24 12:22 Pulse Rate 94 02/11/24 12:22 Respiratory Rate 16 02/11/24 12:22 Blood Pressure 132/95 H 02/11/24 12:22 Blood Pressure Mean 107 H 02/11/24 12:22 Pulse Oximetry 96 02/11/24 12:22 Oxygen Delivery Method Room Air 02/11/24 12:22 Vital Signs Temperature 98.6 F 02/11/24 12:22 Pulse Rate 94 02/11/24 12:22 Respiratory Rate 16 02/11/24 12:22 Blood Pressure 132/95 H 02/11/24 12:22 Pulse Oximetry 96 02/11/24 12:22 Oxygen Delivery Method Room Air 02/11/24 12:22 Temperature 98.6 F 02/11/24 12:22 Pulse Rate 94 02/11/24 12:22 Respiratory Rate 16 02/11/24 12:22 Blood Pressure 132/95 H 02/11/24 12:22 Pulse Oximetry 96 02/11/24 12:22 Oxygen Delivery Method Room Air 02/11/24 12:22 Medical Decision Making MDM Narrative Medical decision making narrative: This patient comes in for concern about erythema in the lower extremities. She has a history of cellulitis. Her symptoms are bilateral and she is currently taking clindamycin after having her upper teeth removed recently. She does arrive with normal vital signs. Patient resides in a care facility and the family member states that the nurses are concerned about recurring cellulitis. I did discuss lab and imaging options and these were declined for now. It is likely that the clindamycin will be sufficient to treat the cellulitis which can take some time to recover. I did give a 1 time dose of Rocephin 1 g intramuscularly. The patient also received a prescription for Zofran as she does have some nausea symptoms when taking food and liquids. Discharge Plan Discharge Clinical Impression: Cellulitis Patient Disposition: Home w/ Parent or Adult Condition: Unchanged Additional Instructions: Continue current plans. Use Zofran as needed and directed for nausea symptoms. Follow up with MD return if worsening. Prescriptions: New ondansetron 4 mg tablet,disintegrating 4 mg PO Q6H Qty: 10 0RF No Action melatonin 3 mg capsule 3 mg PO HS PRN bupropion HCl 150 mg tablet extended release 24 hr 150 mg PO DAILY Qty: 90 3RF furosemide 40 mg tablet 40 mg PO DAILY Qty: 90 3RF losartan 25 mg tablet 25 mg PO DAILY Qty: 90 3RF clobetasol 0.05 % lotion 1 applic topical BID PRN estradiol 0.01 % (0.1 mg/gram) cream 0.5 g vaginal QDAY Rx Instructions: Use nightly for two weeks, then decrease use to twice weekly for 2 weeks, then use once weekly. clindamycin HCl 300 mg capsule 300 mg PO 3XD levothyroxine 25 mcg tablet 25 mcg PO DAILY magnesium oxide 400 mg magnesium tablet 400 mg PO DAILY@12 loratadine 10 mg tablet 10 mg PO DAILY gabapentin 400 mg capsule 1,200 mg PO BID Qty: 540 3RF hydroxychloroquine 200 mg tablet 200 mg PO .Daily At 12:00PM Qty: 90 0RF prednisone 10 mg tablet 10 mg PO DAILY Qty: 90 1RF warfarin 3 mg tablet 1.5 mg PO DAILY Qty: 90 0RF Protocol: Dose Management Condition: Wednesday Dose/Route: 1.5 mg Instruction: 0.5 x 3 mg tablets Condition: Wednesday Dose/Route: 3 mg Instruction: 1 x 3 mg tablet Condition: Wednesday Dose/Route: 1.5 mg Instruction: 0.5 x 3 mg tablets Condition: Wednesday Dose/Route: 3 mg Instruction: 1 x 3 mg tablet Condition: Dose/Route: 1.5 mg Instruction: 0.5 x 3 mg tablets Condition: Wednesday Dose/Route: 1.5 mg Instruction: 0.5 x 3 mg tablets Condition: Wednesday Dose/Route: 1.5 mg Instruction: 0.5 x 3 mg tablets Protocol Text: Adjustment Start Date: Wednesday01/31/24 INR Value: 1.5 INR Date: 01/31/24 Recheck Date: 02/14/24 omeprazole 20 mg capsule,delayed release(DR/EC) 20 mg PO DAILY Qty: 90 1RF potassium chloride 10 mEq capsule, extended release 10 meq PO BID Qty: 60 2RF hydrocodone-acetaminophen 5-325 mg tablet 1 tab PO QDAY 30 Days Qty: 30 0RF metoprolol succinate 25 mg tablet extended release 24 hr 25 mg PO DAILY Qty: 90 0RF Follow Up/Referrals: Prakash Moore MD [Primary Care Provider] - Stand Alone Forms: [employer]th Info Instructions
--- OUTSIDE RECORDS SUMMARY | 2024-02-11 13:05 | XMS_ITS | Continuity of Care Document ---
Author Organization [facility] Address [address] [place] [address] Phone Care Team Providers Care Hydraulics Engineer Name Role Phone Chase Snowden MD Unavailable [...] Seg Office/Outpatient Visit,Est, Mod 2017 Office/Outpatient Visit,New, [facility] 2017 Office/Outpatient Visit,Est, Mod 2011 Postop Followup Visit Remove Lumbar Spine Lamina, 1 Seg Pa Assist Remove Lumbar Spine Lamina, 1 Seg Office/Outpatient Visit,New, Mod 2011 X-Ray Exam Lwr Spine, Min 4 Views Advance Directives Directive Yes / No Effective Date File Name No Information Encounters Encounter Description Practice Location Reason(s) For Visit Diagnoses Date Provider Providers Copied on Encounter [facility], [address] [place] [address], [id number], [place] tel:[phone] No Information 1 Sp Stone. [facility] [place], [address] [place] [address], [id number], . [phone] [facility], [address] [place] [address], [id number], [place] tel:[phone] [facility] Arthrodesis status 1 No Information Office/Outpa tient Visit,Est, Mod [facility], [address] [place] [address], [id number], [place] tel:[phone] [facility] [place] No Information 1 No Information Referring Provider: Prakash Mccauley, [facility] [address] [place], [address]. tel:[phone] Office/Outpa tient Visit,Est, Mod [facility], [address] [place] [address], [id number], [place] tel:[phone] [facility] Arthrodesis status 0 Sp Stone. [facility] [place], [address] [place] [address], [id number], [place]. tel:[phone] Referring Provider: Prakash Mccauley, [facility] [address] [place], [address]. tel:[phone] Office/Outpa tient Visit,Est, Mod [facility], [address] [place] [address], [id number], [place] tel:[phone] [facility] Kyphosis 0 Sp Stone. [facility] [place], [address] [place] [address], [id number], [place]. tel:[phone] Referring Provider: Prakash Mccauley, [facility] [address] [place], [address]. tel:[phone] Office/Outpa tient Visit,Est, Low [facility], [address], [place], [id number], [place] tel:[phone] [facility] Arthrodesis status Sp Stone. [facility] [place], [address] [place], [address], [id number], [place]. tel:[phone] Referring Provider: Prakash Mccauley, [facility] [address] [place], [address]. tel:[phone] Office/Outpa tient Visit,Est, Low [facility], [address], [place], [place], [id number], [place] tel:[phone] [facility] Encounter for other specified surgical aftercare Sp Stone. [facility] [place], [address] [place] [address], [address], [id number], [place]. tel:[phone] Referring Provider: Prakash Mccauley, [facility] [address] [place], [address]. tel:[phone] [facility], [address] [place] [address], [id number], [place] tel:[phone] [facility] Encounter for other specified surgical aftercare Sp Stone. [facility] [place], [address] [place], [address], [id number], [place]. tel:[phone] Referring Provider: Prakash Mccauley, [facility] [address] [place], [address]. tel:[phone] [facility], [address], [place], [id number], [place] tel:[phone] [facility] Encounter for other specified surgical aftercare Sp Stone. [facility] [place], [address], [address], [id number], [place]. tel:[phone] Referring Provider: Prakash Mccauley, [facility] [address] [place], [address]. tel:[phone] [facility], [address], [place], [place], [id number], [place] tel:[phone] [facility] No Information Chris Meneses. [facility], [address], [place], [address], [place]. tel:[phone] Referring Provider: Prakash Mccauley, [facility] [address] [place], [address]. tel:[phone] [facility], [address], [place], [place], [id number], [place] tel:[phone] [facility] No Information pS Stone. [facility] [place], [address] [place] [address], Ernesto [address] [place] [address], [id number], [place]. tel:[phone] Referring Provider: Prakash Mccaulye, [facility] [address] [place], [address]. tel:[phone] Office/Outpa tient Visit,Est, Mod [facility], [address] [place] [address], [id number], [place] tel:[phone] [facility] [place] Spinal stenosis, cervical region Sp Stone. [facility] [place], [address], [facility] [address], [place], [place], [id number], [place]. tel:[phone] Referring Provider: Prakash Mccauley, [facility] [address] [place], [address]. tel:[phone] Office/Outpa tient Visit,New, Mod [facility], [address], [place], [id number], [place] tel:[phone] [facility] [place] Postlaminect jasmine kyphosisSpin al stenosis, cervical regionArthro desis status No Information Referring Provider: Prakash Mccauley, [facility] [address] [place], [address]. tel:[phone] Office/Outpa tient Visit,Est, Mod [facility], [address], [place], [address], [place] tel:[phone] [facility] [place] No Information 2 No Information Referring Provider: Prakash Mccauley, [facility] [address] [place], [address]. tel:[phone] [facility], [address], [place], [address], [place] tel:[phone] [facility] [place] No Information 2 No Information Referring Provider: Prakash Mccauley, [facility] [address] [place], [address]. tel:[phone] [facility], [address] [facility] [address], [place], [address], [place] tel:[phone] [facility] No Information No Information Referring Provider: Prakash Mccauley, [facility] [address] [place], [address]. tel:[phone] [facility], [address] [facility] [address], [place], [address], [place] tel:[phone] [facility] [place] LUPUS ERYTHEMATOSU SOsteopeniaA nxietyGERDCA TARACT NOS No Information Office/Outpa tient Visit,New, Mod Z [facility], [address], [place], [address], [place] tel:[phone] [facility] [place] No Information No Information Referring Provider: Prakash Mccauley, [facility] [address] [place], [address]. tel:[phone] Family History Family Member Type Diagnosis Age At Onset Mother Problem (finding) hypothyroidism Father Problem (finding) Cancer, unknown Mother Problem (finding) hypertension Problem (finding) Family history of prost ate cancer Payers Payer name Insurance type Covered constitution party ID Avaa angus(s) [facility] [id number] Medicare [facility] [id number] 1 Social History Type Description Quantity Date [...]
--- OUTSIDE RECORDS SUMMARY | 2024-02-11 13:05 | XMS_ITS | Clinical Summary ---
Author Organization [facility] [facility] Address [place], [place] [address] Care Team Providers Care Dairy Management Specialist Name Role Phone Prakash [place] MD Primary Care Provider [phone] Allergies Active Allergy Reactions Criticality Noted Date [...] once daily. Active MULTIVITS W-FE,OTHER MIN (PEDIATRIC QTNUYIZB-JMKO-GAP ORAL) Take by mouth once daily. Active [...] mg by mouth at bedtime. 04/30/2023 Active ciprofloxacin (Cipro) 500 mg tabletIndications:s kin and skin structure infection Take 1 Tablet (500 mg) by mouth two times daily. 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 20 Tablet 01/06/2024 Active Active Problems Problem Noted Date Diagnosed [...] Encounters Date Type Department Care Team Description 01/26/2024 3:15 PM CDT Office Visit [facility] [address] [place] [address] Saran Arias DPMk Follow Up (Right foot ulcer, 2 week follow up) 01/26/2024 Travel 01/11/2024 1:30 PM CDT Office Visit [facility] [address] [place] [address] Saran Arias DPMk Ulcer (Follow up-right foot) 01/11/2024 Travel 01/06/2024 Telephone [facility] [address] [facility] [address] Saran Arias DPMk Anticoagulation (BPA Ciprofloxacin and Warfarin) 01/06/2024 Telephone [facility] [address] [place] [address] Saran Arias DPM Foot Problem (PAINFUL MEDICATION ) 01/04/2024 1:30 PM CDT Office Visit [facility] [address] [place] [address] Saran Arias DPM Follow Up (Right ulcer check) 01/04/2024 Travel 12/31/2023 Telephone [facility] [address] [place] [address] Saran Arias DPM Questions 12/31/2023 Telephone [facility] [address] [place] [address] Saran Arias DPM Anticoagulation (BPA: CIPROFLOXACIN ) 12/31/2023 Orders Only [address] [address] Saran Arias DPM <No scans attached> 12/28/2023 2:30 PM CDT Office Visit [facility] [address] [place] [address] Saran Arias DPM Ulcer (Follow up-right foot) 12/28/2023 Travel 12/08/[address] [address] Saran Arias DPM Appointment (FOLLOW-UP) 11/17/2023 10:45 AM CDT Office Visit [address] [address] Saran Arias DPM Ulcer (Follow up-right foot) 11/17/2023 Travel from Last 3 Months Immunizations Name Administration Dates Next Due Influenza, IIV3 (Age >=3 years) 02/12/2011 Social History Tobacco Use Types Packs/Day Years Used Date Smoking Tobacco: Former Cigarettes Q uit: 1978 Smokeless Tobacco: Never Tobacco Cessation:Counseling Given: Yes [...] Sign Reading Time Taken Comments Blood Pressure 148/90 01/26/2024 3:11 PM CDT Pulse 75 01/26/2024 3:11 PM CDT Temperature 36.5 ??C (97.7 ??F) 07/14/2023 2:35 PM CS T Respiratory Rate 16 05/24/2020 3:38 PM SENIOR LIVING ADVISOR Oxygen Saturation 94% 01/26/2024 3:11 PM CDT Inhaled Oxygen Concentration - - Weight 63.5 kg (140 lb) 05/24/2020 3:38 PM SENIOR LIVING ADVISOR Height 143.5 cm (4' 8.5) 09/21/2017 4:21 PM CDT Body Mass Index 30.83 09/21/2017 4:21 PM CDT Plan of Treatment Upcoming Encounters Date Type Department Care Team (Late st Contact Info) Description 02/16/2024 1:45 PM CDT Office Visit [facility] [address] [place] [address] Saran Arias DPM [address] [place] [address] Health Maintenance Due Date Last Done Comments Tdap 1954 Depression screening for age 12+ 1955 BMI (ht and wt on same day) for age 18+ 1961 Tetanus booster 1963 Zoster (shingles) series for age 50+ (1 of 2) 05/01/19 93 DEXA/DXA scan for age 65+ 2008 Medicare Wellness for age 65+ 2008 Pneumococcal series for age 65+ (1 of 1 - PCV) 008 RSV vaccine for adults or pr egnancy (1 - 1-dose 75+ series) 2018 COVID-19 vaccine series ( - season) 4 Influenza for age 65+ 01/09/2024 02/12/2011 Medical Devices Implanted Type Area It Sales Executive Device Identifier Shelf Expiration Date Model / Serial / Lot [id number] 1-4mm 30cc Medtronic Chips Canclls Freeze Dried Implanted:Qty: 1 on 09/23/2017 by Chase Snowden MD at [facility] Explanted:at [facility] (Quantity not on file) N/A: Spine Medtronic Spine/Ortho 09/30/2021 [id number] / [id number] / Plate Ti Occipital 50mm Implanted:Qty: 1 on 09/23/2017 by Chase Snowden MD at [facility] N/A: Spine 04.161.001 / / Description:PLATE TI OCCIPIT AL 50MM Screw Occipital Ti 4.5 X 8 Implanted:Qty: 1 on 09/23/2017 by Chase Snowden MD at [facility] N/A: Spine 04.601.108 / / Description:SCREW OCCIPITAL TI 4.5 X 8 Screw Occipital Ti 4.5 X 10 Implanted:Qty: 1 on 09/23/2017 by Chase Snowden MD at [facility] N/A: Spine 04.601.110 / / Description:SCREW OCCIPITAL TI 4.5 X 10 Screw Cerv Post 4.5x14mm Synapse Va Canncls Titnm Implanted:Qty: 1 on 09/23/2017 by Chase Snowden MD at [facility] N/A: Spine 04.614.214 / / Description:SCREW CERV POST 4.5X14MM SYNAPSE VA CANNCLS TITNM Mushtaq Pre-Bent 3.4d494xm Titnm - [id number] Implanted:Qty: 2 on 09/23/2017 by Chase Snowden MD at [facility] N/A: Spine J And J Depuy Spine 04.161.032 # / / Set Screw Cerv Axon - [id number] Implanted:Qty: 2 on 09/23/2017 by Chase Snowden MD at [facility] N/A: Spine J And J Depuy Spine 406.104# / / Screw Cerv Post 4x10mm Synapseva Canncls Titnm - [id number] Implanted:Qty: 1 on 09/23/2017 by Chase Snowden MD at [facility] N/A: Spine J And J Depuy Spine 04.614.110 # / / Screw Cerv Post 4x12mm Synapseva Canncls Titnm - [id number] Implanted:Qty: 2 on 09/23/2017 by Chase Snowden MD at [facility] N/A: Spine J And J Depuy Spine 04.614.112 # / / Screw Cerv Post 4.5x10mm Synapse Va Canncls Titnm - [id number] Implanted:Qty: 1 on 09/23/2017 by Chase Snowden MD at [facility] N/A: Spine J And J Depuy Spine 04.614.210 # / / Screw Cerv Post 4.5x26mm Synapse Va Canncls Titnm - [id number] Implanted:Qty: 1 on 09/23/2017 by Chase Snowden MD at [facility] N/A: Spine J And J Depuy Spine 04.614.226 # / / Screw Cerv Post 4.5x28mm Synapse Va Canncls Titnm - [id number] Implanted:Qty: 3 on 09/23/2017 by Chase Snowden MD at [facility] N/A: Spine J And J Depuy Spine 04.614.228 # / / Set Screw Cerv Synapse - [id number] Implanted:Qty: 9 on 09/23/2017 by Chase Snowden MD at [facility] N/A: Spine J And J Depuy Spine 04.614.508 # / / Procedures Procedure Name Priority Date/Time Associated Diagnosis Comments CARBA-R TESTING Routine 12/28/2023 2:44 PM CDT Ulcer of right foot, 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) Cellulitis of right foot AEROBIC BACTERIAL CULTURE, STAIN Routine 12/28/2023 2:44 PM CDT Ulcer of right foot, 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) Cellulitis of right foot from Last 3 Months Results * CARBA-R TESTING (12/28/2023 2:44 PM CDT) [facility] (carbapenem-r esistance gene) NOT Detected NOT Detected, N/A 12/31/2023 7:40 AM CDT [facility] IMP (carbapenem-r esistance gene) NOT Detected NOT Detected, N/A 12/31/2023 7:40 AM CDT [facility] NDM (carbapenem-r esistance gene) NOT Detected NOT Detected, N/A 12/31/2023 7:40 AM CDT [facility] OXA-48 like (carbapenem-r esistance gene) NOT Detected NOT Detected, N/A 12/31/2023 7:40 AM CDT [facility] VIM (carbapenem-r esistance gene) NOT Detected NOT Detected, N/A 12/31/2023 7:40 AM CDT [facility] Organism Pseudomonas aeruginosa 12/31/2023 7:40 AM CDT [facility] Other (Other) Non-Blood / Unknown 12/28/2023 2:44 PM CDT 12/28/2023 3:00 PM CDT Narrative [facility] - 12/31/2023 7:40 AM CDT Decreased carbapenem susceptibility likely due to changes in porin expression and/or efflux pump mechanisms. Saran Arias DPM MICROBIOLOGY [facility] [address] [place] [address], * (ABNORMAL) AEROBIC BACTERIAL CULTURE, STAIN (12/28/2023 2:44 PM CDT) CULTURE RESULT(A) 01/01/2024 10:19 AM CDT [facility] CULTURE 2+ Staphylococcus aureus 01/01/2024 10:19 AM CDT [facility] CULTURE 1+ Pseudomonas aeruginosa 01/01/2024 10:19 AM CDT [facility] Comment:See resistance-gene testing (CARBA-R) CULTURE 1+ Mixed ata present 01/01/2024 10:19 AM CDT [facility] GRAM STAIN No Epithelial cells 01/01/2024 10:19 AM CDT [facility] GRAM STAIN No RBCs 01/01/2024 10:19 AM CDT [facility] GRAM STAIN No PMNs 01/01/2024 10:19 AM CDT [facility] No organisms seen 024 10:19 AM CDT [facility] Other (Other) Non-Blood / Unknown 12/28/2023 2:44 PM CDT 12/28/2023 3:00 PM CDT Narrative [facility] - 01/01/2024 10:19 AM CDT Mixed ata, No beta- Streptococcus or Streptococcus pneumoniae.. Organism Antibiotic Method Susceptibility Staphylococcus aureus OXACILLIN <=0.25: S Comment:Oxacillin delacruz sceptible should not be interpreted as penicillin or amoxicillin susceptible. Staphylococcus aureus CLINDAMYCIN 0.25: S Staphylococcus aureus DOXYCYCLINE <=0.5: S Staphylococcus aureus CEFAZOLIN S Staphylococcus aureus TRIMETHOPRIM/SULF <=0.5/9.5: S Pseudomonas aeruginosa CEFTAZIDIME 4: S Pseudomonas aeruginosa LEVOFLOXACIN 0.5: S Pseudomonas aeruginosa CIPROFLOXACIN 0.5: S Pseudomonas aeruginosa PIPERACILLIN/TAZO <=4: S Pseudomonas aeruginosa CEFEPIME 2: S Pseudomonas aeruginosa MEROPENEM 8: R Saran Arias DPM MICROBIOLOGY [facility] [address] [place] [address], from Last 3 Months Additional Health Concerns Infection Onset Date Last Indicated ACCOUNT EXECUTIVE AGRIBUSINESS 12/28/2023 12/28/2023 Advance Directives * Full Code (Latest Code Status on File) Date Activated Date Inactivated Comments 09/23/2017 7:47 PM 09/28/2017 12:30 PM Care Teams Dairy Management Specialist Relationship Specialty Start Date End Date Prakash [place] MD [address] [place] [address] PCP - General Family Practice 09/20/17
[2024-02-11] MEDS: LIDOCAINE 1% 5 ml (pf) 5 ML VIAL 2.1 ML IM (13:12)
[2024-02-11] MEDS: cefTRIAXone 1 GM VIAL IM (13:12)
== END 2024-02-11 14:03 | disposition home or self-care (01) ==
LOC: ED 12:57
PROVIDERS: Emergency Provider Emergency Medicine Emergency Medical Services; PCP Family Medicine
DX: L03.116 Cellulitis of left lower limb (principal); L03.115 Cellulitis of right lower limb
CPT/HCPCS: 96372; 99284; J0696

== ENCOUNTER 2024-02-29 12:31 | Outpatient (REF) | payer MEDICARE, BC, SELFPAY ==
--- OUTSIDE RECORDS SUMMARY | 2024-02-29 12:34 | XMS_ITS | Continuity of Care Document ---
Author Organization [facility] Address [address] [place] [address] Phone Care Team Providers Care Hospital Housekeeper Name Role Phone Chase Snowden MD Unavailable [...] Seg Office/Outpatient Visit,Est, Mod 2017 Office[place] [facility] [place] Office/Outpatient Visit,Est, Mod 2011 Postop Followup Visit Remove Lumbar Spine Lamina, 1 Seg Pa Assist Remove Lumbar Spine Lamina, 1 Seg Office/Outpatient Visit,New, Mod 2011 X-Ray Exam Lwr Spine, Min 4 Views Advance Directives Directive Yes / No Effective Date File Name No Information Encounters Encounter Description Practice Location Reason(s) For Visit Diagnoses Date Provider Providers Copied on Encounter [facility], [address] [place] [address], [id number], [place] tel:[phone] No Information 1 Sp Stone. [facility] [place], [address] [place] [address], [id number], . [phone] [facility], [address] [place] [address], [id number], [place] tel:[phone] [facility] Arthrodesis status 1 No Information Office/Outpa tient Visit,Est, Mod [facility], [address] [place] [address], [id number], [place] tel:[phone] [facility] No Information 1 No Information Referring Provider: Prakash Mccauley, [facility] [address] [place], [address]. tel:[phone] Office/Outpa tient Visit,Est, Mod [facility], [address] [place] [address], [id number], [place] tel:[phone] [facility] Arthrodesis status 0 Sp Stone. [facility] [place], [address] [place] [address], [id number], [place]. tel:[phone] Referring Provider: Prakash Mccauley, [facility] [address] [place], [address]. tel:[phone] Office/Outpa tient Visit,Est, Mod [facility], [address] [place] [address], [id number], [place] tel:[phone] [facility] Kyphosis 0 Sp Stone. [facility] [place], [address] [place] [address], [id number], [place]. tel:[phone] Referring Provider: Prakash Mccauley, [facility] [address] [place], [address]. tel:[phone] Office/Outpa tient Visit,Est, Low [facility], [address], [place], [id number], [place] tel:[phone] [facility] Arthrodesis status Sp Stone. [facility] [place], [address], [address], [id number], [place]. tel:[phone] Referring Provider: Prakash Mccauley, [facility] [address] [place], [address]. tel:[phone] Office/Outpa tient Visit,Est, Low [facility], [address], [place], [place], [id number], [place] tel:[phone] [facility] Encounter for other specified surgical aftercare Sp Stone. [facility] [place], [address] [place] [address], [address], [id number], [place]. tel:[phone] Referring Provider: rPakash Mccauley, [facility] [address] [place], [address]. tel:[phone] [facility], [address] [place] [address], [id number], [place] tel:[phone] [facility] Encounter for other specified surgical aftercare Sp Stone. [facility] [place], [address], [address], [id number], [place]. tel:[phone] Referring Provider: Prakash Mccauley, [facility] [address] [place], [address]. tel:[phone] [facility], [address], [place], [id number], [place] tel:[phone] [facility] Encounter for other specified surgical aftercare Sp Stone. [facility] [place], [address], [address], [id number], [place]. tel:[phone] Referring Provider: Prakash Mccauley, [facility] [address] [place], [address]. tel:[phone] [facility], [address], [place], [place], [id number], [place] tel:[phone] [facility] No Information Chris Meneses. [facility], [address], [place], [address], [place]. tel:[phone] Referring Provider: Prakash Mccauley, [facility] [address] [place], [address]. tel:[phone] [facility], [address], [place], [place], [id number], [place] tel:[phone] [facility] No Information Sp Stone. [facility] [place], [address] [place] [address], Ernesto [address] [place] [address], [id number], [place]. tel:[phone] Referring Provider: Prakash Mccauley, [facility] [address] [place], [address]. tel:[phone] Office/Outpa tient Visit,Est, Mod [facility], [address] [place] [address], [id number], [place] tel:[phone] [facility] [place] Spinal stenosis, cervical region Sp Stone. [facility] [place], [address], [facility] [address], [place], [place], [id number], [place]. tel:[phone] Referring Provider: Prakash Mccauley, [facility] [address] [place], [address]. tel:[phone] Office/Outpa tient Visit,New, Mod [facility], [address], [place], [id number], [place] tel:[phone] [facility] Postlaminect jasmine kyphosisSpin al stenosis, cervical regionArthro desis status No Information Referring Provider: Prakash Mccauley, [facility] [address] [place], [address]. tel:[phone] Office/Outpa tient Visit,Est, Mod Z [facility], [address], [place], [address], [place] tel:[phone] [facility] No Information 2 No Information Referring Provider: Prakash Mccauley, [facility] [address] [place], [address]. tel:[phone] Z [facility], [address], [place], [address], [place] tel:[phone] [facility] No Information 2 No Information Referring Provider: Prakash Mccauley, [facility] [address] [place], [address]. tel:[phone] Z [facility], [address] [facility] [address], [place], [address], [place] tel:[phone] [facility] No Information No Information Referring Provider: Prakash Mccauley, [facility] [address] [place], [address]. tel:[phone] Z [facility], [address] [facility] [address], [place], [address], [place] tel:[phone] [facility] LUPUS ERYTHEMATOSU SOsteopeniaA nxietyGERDCA TARACT NOS No Information Office/Outpa tient Visit,New, Mod Z [facility], [address], [place], [address], [place] tel:[phone] [facility] No Information No Information Referring Provider: Prakash Mccauley, [facility] [address] [place], [address]. tel:[phone] Family History Family Member Type Diagnosis Age At Onset Mother Problem (finding) hypothyroidism Father Problem (finding) Cancer, unknown Mother Problem (finding) hypertension Problem (finding) Family history of prost ate cancer Payers Payer name Insurance type Covered constitution party ID Avaa angus(s) [facility] [id number] Medicare [facility] [id number] 1 Social History Type Description Quantity Date [...]
--- OUTSIDE RECORDS SUMMARY | 2024-02-29 12:34 | XMS_ITS | Clinical Summary ---
Author Organization [facility] Address [place], [place] [address] Care Team Providers Care Bridge Opener Name Role Phone Prakash Moore MD Primary Care Provider [phone] Allergies Active Allergy Reactions Criticality Noted Date [...] once daily. Active MULTIVITS W-FE,OTHER MIN (PEDIATRIC [id number] ORAL) Take by mouth once daily. Active [...] Visit [facility] [address] [place] [address] Saran Arias DPMk Follow Up (Right foot ulcer, 2 week follow up) 01/26/2024 Travel 01/11/2024 1:30 PM CDT Office Visit [facility] [address] [place] [address] Saran Arias DPMk Ulcer (Follow up-right foot) 01/11/2024 Travel 01/06/2024 Telephone [facility] [address] [place] [address] Saran Arias DPMk Anticoagulation (BPA Ciprofloxacin and Warfarin) 01/06/2024 Telephone [facility] [address] [place] [address] Saran Arias DPM Foot Problem (PAINFUL MEDICATION ) 01/04/2024 1:30 PM CDT Office Visit [facility] [address] [place] [address] Saran Arias DPM Follow Up (Right ulcer check) 01/04/2024 Travel 12/31/2023 Telephone [facility] [address] [place] [address] Saran Arias DPM Questions 12/31/2023 Telephone [facility] [address] [place] [address] Saran Arias DPM Anticoagulation (BPA: CIPROFLOXACIN ) 12/31/2023 Orders Only [address] [address] Saran Arias DPM <No scans attached> 12/28/2023 2:30 PM CDT Office Visit [facility] [address] [place] [address] Saran Arias DPM Ulcer (Follow up-right foot) 12/28/2023 Travel 12/08/2023 Telephone [facility] [address] [place] [address] Saran Arias DPM Appointment (FOLLOW-UP) from Last 3 Months Immunizations Name Administration [...] T Respiratory Rate 16 05/24/2020 3:38 PM RAIL SWITCH OPERATOR Oxygen Saturation 94% 01/26/2024 3:11 PM CDT Inhaled Oxygen Concentration - - Weight 63.5 kg (140 lb) 05/24/2020 3:38 PM RAIL SWITCH OPERATOR Height 143.5 cm (4' 8.5) 09/21/2017 4:21 PM CDT Body Mass Index 30.83 09/21/2017 4:21 PM CDT Plan of Treatment Upcoming Encounters Date Type Department Care Team (Late st Contact Info) Description 03/22/2024 2:15 PM RAIL SWITCH OPERATOR Office Visit [facility] [address] [place] [address] Saran Arias DPM [address] [place] [address] Health Maintenance Due Date Last Done Comments [...] 75+ series) 2018 COVID-19 vaccine series ( season) 4 Influenza for age 65+ 01/09/2024 02/12/2011 Medical Devices Implanted Type Area Science Writer Device Identifier Shelf Expiration Date Model / Serial / Lot [id number] 1-4mm 30cc Medtronic Chips Canclls Freeze Dried Implanted:Qty: 1 on 09/23/2017 by Chase Snowden MD at [facility] Explanted:at [facility] (Quantity not on file) N/A: Spine Medtronic Spine/Ortho 09/30/2021 [id number] / [id number] / Plate Ti Occipital 50mm Implanted:Qty: 1 on 09/23/2017 by Chase Snowden MD at [facility] N/A: Spine 04.161.001 / / Description:PLATE TI OCCIPIT AL 50MM Screw Occipital Ti 4.5 X 8 Implanted:Qty: 1 on 09/23/2017 by Chase Snowden MD at [facility] N/A: Spine 04.601.108 / / Description:SCREW OCCIPITAL TI 4.5 X 8 Screw Occipital Ti 4.5 X 10 Implanted:Qty: 1 on 09/23/2017 by Chase Snowden MD at [facility] N/A: Spine 04.601.110 / / Description:SCREW OCCIPITAL TI 4.5 X 10 Screw Cerv Post 4.5x14mm Synapse Va Canncls Titnm Implanted:Qty: 1 on 09/23/2017 by Chase Snowden MD at [facility] N/A: Spine 04.614.214 / / Description:SCREW CERV POST 4.5X14MM SYNAPSE VA CANNCLS TITNM Mushtaq Pre-Bent 3.1f592sn Titnm - [id number] Implanted:Qty: 2 on 09/23/2017 by Chase Snowden MD at [facility] N/A: Spine J And J Depuy Spine 04.161.032 # / / Set Screw Cerv Axon - [id number] Implanted:Qty: 2 on 09/23/2017 by Chase Snowden MD at [facility] N/A: Spine J And J Depuy Spine 406.104# / / Screw Cerv Post 4x10mm Synapseva Canncls Titnm - [id number] Implanted:Qty: 1 on 09/23/2017 by Chase Snowden MD at [facility] N/A: Spine J And J Depuy Spine 04.614.110 # / / Screw Cerv Post 4x12mm Synapseva Canncls Titnm - [id number] Implanted:Qty: 2 on 09/23/2017 by Chase Snowden MD at [facility] N/A: Spine J And J Depuy Spine 04.614.112 # / / Screw Cerv Post 4.5x10mm Synapse Va Canncls Titnm - [id number] Implanted:Qty: 1 on 09/23/2017 by Chase Snowden MD at [facility] N/A: Spine J And J Depuy Spine 04.614.210 # / / Screw Cerv Post 4.5x26mm Synapse Va Canncls Titnm - [id number] Implanted:Qty: 1 on 09/23/2017 by Chase Snowden MD at [facility] N/A: Spine J And J Depuy Spine 04.614.226 # / / Screw Cerv Post 4.5x28mm Synapse Va Canncls Titnm - [id number] Implanted:Qty: 3 on 09/23/2017 by Chase Snowden MD at [facility] N/A: Spine J And J Depuy Spine 04.614.228 # / / Set Screw Cerv Synapse - [id number] Implanted:Qty: 9 on 09/23/2017 by Chase Snowden MD at [facility] N/A: Spine J And J [...] * CARBA-R TESTING (12/28/2023 2:44 PM CDT) KPC (carbapenem-r esistance gene) NOT Detected NOT Detected, N/A 12/31/2023 7:40 AM CDT [facility] IMP (carbapenem-r esistance gene) NOT Detected NOT Detected, N/A 12/31/2023 7:40 AM CDT [facility] NDM (carbapenem-r esistance gene) NOT Detected NOT Detected, N/A 12/31/2023 7:40 AM CDT [facility] OXA-48 like (carbapenem-r esistance gene) NOT Detected NOT Detected, N/A 12/31/2023 7:40 AM CDT [facility] VIM (carbapenem-r esistance gene) NOT Detected NOT Detected, N/A 12/31/2023 7:40 AM CDT [facility] Organism Pseudomonas aeruginosa 12/31/2023 7:40 AM CDT [facility] Other (Other) Non-Blood / Unknown 12/28/2023 2:44 PM CDT 12/28/2023 3:00 PM CDT [facility] - 12/31/2023 7:40 AM CDT Decreased carbapenem susceptibility likely due to changes in porin expression and/or efflux pump mechanisms. Saran Arias [facility] MICROBIOLOGY [facility] [address] [place] [address], * (ABNORMAL) AEROBIC BACTERIAL CULTURE, STAIN (12/28/2023 2:44 PM CDT) CULTURE RESULT(A) 01/01/2024 10:19 AM CDT [facility] CULTURE 2+ Staphylococcus aureus 01/01/2024 10:19 AM CDT [facility] CULTURE 1+ Pseudomonas aeruginosa 01/01/2024 10:19 AM CDT [facility] Comment:See resistance-gene testing (CARBA-R) CULTURE 1+ Mixed ata present 01/01/2024 10:19 AM CDT [facility] GRAM STAIN No Epithelial cells 01/01/2024 10:19 AM CDT [facility] GRAM STAIN No RBCs 01/01/2024 10:19 AM CDT [facility] GRAM STAIN No PMNs 01/01/2024 10:19 AM CDT [facility] GRAM STAIN No organisms seen 024 10:19 AM CDT [facility] Other (Other) Non-Blood / Unknown 12/28/2023 2:44 PM CDT 12/28/2023 3:00 PM CDT Narrative [facility] - 01/01/2024 10:19 AM CDT Mixed ata, [...] MEROPENEM 8: R Saran Arias DPM MICROBIOLOGY [facility] 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
[2024-02-29 12:49] LABS: Basophils Absolute Auto 0.05 K/uL (0.00-0.30); Basophils Percent Auto 0.6 % (0.0-3.0); Eosinophils Absolute Auto 0.18 K/uL (0.00-0.50); Eosinophils Percent Auto 2.2 % (0.0-7.0); Hematocrit 32.6 % (33.0-51.0); Hemoglobin* 9.9 gm/dL (12.0-16.0); Immature Granulocytes Abs Auto 0.01 K/uL (0.00-0.30); Immature Granulocytes Pct Auto 0.1 %; Lymphocytes Percent Auto 18.6 % (20-44); Mean Corpuscular HGB Conc 30 gm/dL (32-36); Mean Corpuscular Hemoglobin 27 pg (26-34); Mean Corpuscular Volume 90 fL (80-100); Monocytes Percent Auto 11.9 % (0.0-11.0); Neutrophils Absolute Auto 5.55 K/uL (1.7-7.0); Neutrophils Percent Auto 66.6 % (42.0-72.0); Platelet Count* 264 K/uL (140-440); RDW Coefficient of Variation % 15.7 % (11.5-15.5); Red Blood Count 3.64 m/uL (4.00-5.20); White Blood Count* 8.33 K/uL (4.50-11.00)
[2024-02-29 12:54] LABS: Slide Review Reflex No
== END 2024-02-29 12:32 | disposition home or self-care (01) ==
LOC: NPINS 12:31
PROVIDERS: PCP Family Medicine; Visit Provider Nurse Practitioner Gerontology
DX: M32.9 Systemic lupus erythematosus, unspecified (principal)
CPT/HCPCS: 85025

== ENCOUNTER 2024-03-02 13:16 | Outpatient (REF) | payer MEDICARE, BC, SELFPAY ==
--- OUTSIDE RECORDS SUMMARY | 2024-03-02 13:20 | XMS_ITS | Continuity of Care Document ---
Author Organization [facility] Address [address] [place] [address] Phone Care Team Providers Care Director Surface Transportation Name Role Phone Chase Snowden MD Unavailable [...] Seg Office/Outpatient Visit,Est, Mod 2017 Office/Outpatient Visit,New, [facility] 2017 Office/Outpatient Visit,Est, Mod [...] Providers Copied on Encounter [facility], [address] [place] [address], [id number], [place] tel:[phone] No Information 1 Sp Stone. [facility], [address] [place] [address], [id number], . [phone] [facility], [address] [place] [address], [id number], [place] tel:[phone] [facility] Arthrodesis status 1 No Information Office/Outpa tient Visit,Est, Mod [facility], [address] [place] [address], [id number], [place] tel:[phone] [facility] No Information 1 No Information Referring Provider: Prakash Mccauley, [facility] [address] [place], [address]. tel:[phone] Office/Outpa tient Visit,Est, Mod [facility], [address] [place] [address], [id number], [place] tel:[phone] [facility] Arthrodesis status 0 Sp Stone. [facility], [address] [place] [address], [id number], [place]. tel:[phone] Referring Provider: Prakash Mccauley, [facility] [address] [place], [address]. tel:[phone] Office/Outpa tient Visit,Est, Mod [facility], [address] [place] [address], [id number], [place] tel:[phone] [facility] Kyphosis 0 Sp Stone. [facility], [address] [place] [address], [id number], [place]. tel:[phone] Referring Provider: Prakash Mccauley, [facility] [address] [place], [address]. tel:[phone] Office/Outpa tient Visit,Est, Low [facility], [address], [place], [id number], [place] tel:[phone] [facility] Arthrodesis status Sp Stone. [facility], [address] [place], [address], [id number], [place]. tel:[phone] Referring Provider: Prakash Mccauley, [facility] [address] [place], [address]. tel:[phone] Office/Outpa tient Visit,Est, Low [facility], [address], [place], [place], [id number], [place] tel:[phone] [facility] Encounter for other specified surgical aftercare Sp Stone. [facility], [address] [place] [address], [address], [id number], [place]. tel:[phone] Referring Provider: Prakash Mccauley, [facility] [address] [place], [address]. tel:[phone] [facility], [address] [place] [address], [id number], [place] tel:[phone] [facility] Encounter for other specified surgical aftercare Sp Stone. [facility], [address] [place], [address], [id number], [place]. tel:[phone] Referring Provider: Prakash Mccauley, [facility] [address] [place], [address]. tel:[phone] [facility], [address], [place], [id number], [place] tel:[phone] [facility] Encounter for other specified surgical aftercare Sp Stone. [facility], [address], [address], [id number], [place]. tel:[phone] Referring Provider: Prakash Mccauley, [facility] [address] [place], [address]. tel:[phone] [facility], [address], [place], [place], [id number], [place] tel:[phone] [employer] No Information Chris Meneses. [facility], [address], [place], [address], [place]. tel:[phone] Referring Provider: Prakash Mccauley, [facility] [address] [place], [address]. tel:[phone] [facility], [address], [place], [place], [id number], [place] tel:[phone] [employer] No Information Sp Stone. [facility], [address] [place] [address], Ernesto [address] [place] [address], [id number], [place]. tel:[phone] Referring Provider: Prakash Mccauley, [facility] [address] [place], [address]. tel:[phone] Office/Outpa tient Visit,Est, Mod [facility], [address] [place] [address], [id number], [place] tel:[phone] [facility] Spinal stenosis, cervical region Sp Stone. [facility], [address], [facility] [address], [place], [place], [id number], [place]. tel:[phone] Referring Provider: Prakash Mccauley, [facility] [address] [place], [address]. tel:[phone] Office/Outpa tient Visit,New, Mod [facility], [address], [place], [id number], [place] tel:[phone] [facility] Postlaminect jasmine kyphosisSpin al stenosis, cervical regionArthro desis status No Information Referring Provider: Prakash Mccauley, [facility] [address] [place], [address]. tel:[phone] Office/Outpa tient Visit,Est, Mod Z [facility], [address], [place], [address], [place] tel:[phone] [facility] No Information 2 No Information Referring Provider: Prakash Mccauley, [facility] [address] [place], [address]. tel:[phone] Z [facility], [address], [place], [address], [place] tel:[phone] [facility] No Information 2 No Information Referring Provider: Prakash Mccauley, [facility] [address] [place], [address]. tel:[phone] Z [facility], [address] [facility] [address], [place], [address], [place] tel:[phone] [employer] No Information No Information Referring Provider: Prakash Mccauley, [facility] [address] [place], [address]. tel:[phone] Z [facility], [address] [facility] [address], [place], [address], [place] tel:[phone] [facility] LUPUS ERYTHEMATOSU SOsteopeniaA nxietyGERDCA TARACT NOS No Information Office/Outpa tient Visit,New, Mod Z [facility], [address], [place], [address], [place] tel:[phone] [facility] No Information No Information Referring Provider: Prakash Mccauley, [facility] [address] [place], [address]. tel:[phone] Family History Family Member Type Diagnosis Age At Onset Mother Problem (finding) hypothyroidism Father Problem (finding) Cancer, unknown Mother Problem (finding) hypertension Problem (finding) Family history of prost ate cancer Payers Payer name Insurance type Covered democrat ID Avaa angus(s) [facility] [id number] Medicare [facility] [id number] 1 Social History Type Description Quantity Date [...]
--- OUTSIDE RECORDS SUMMARY | 2024-03-02 13:20 | XMS_ITS | Clinical Summary ---
Author Organization [facility] Address [place], [place] [address] Care Team Providers Care Sighter Name Role Phone Prakash Moore MD Primary Care Provider [phone] Allergies Active Allergy Reactions Criticality Noted Date [...] once daily. Active MULTIVITS W-FE,OTHER MIN (PEDIATRIC [id number] ORAL) Take by mouth once daily. Active [...] Description 01/26/2024 3:15 PM CDT Office Visit [facility] [address] [place] [address] Saran Arias DPMk Follow Up (Right foot ulcer, 2 week follow up) 01/26/2024 Travel 01/11/2024 1:30 PM CDT Office Visit [facility] [address] [place] [address] Saran Arias DPMk Ulcer (Follow up-right foot) 01/11/2024 Travel 01/06/2024 Telephone [facility] [address] [place] [address] Saran Arias DPMk Anticoagulation (BPA Ciprofloxacin and Warfarin) 01/06/2024 Telephone [facility] [address] [place] [address] Saran Arias DPM Foot Problem (PAINFUL MEDICATION ) 01/04/2024 1:30 PM CDT Office Visit [facility] [address] [place] [address] Saran Arias DPM Follow Up (Right ulcer check) 01/04/2024 Travel 12/31/2023 Telephone [facility] [address] [place] [address] Saran Arias DPM Questions 12/31/2023 Telephone [facility] [address] [place] [address] Saran Arias DPM Anticoagulation (BPA: CIPROFLOXACIN ) 12/31/2023 Orders Only [address] [address] Saran Arias DPM <No scans attached> 12/28/2023 2:30 PM CDT Office Visit [facility] [address] [place] [address] Saran Arias DPM Ulcer (Follow up-right foot) 12/28/2023 Travel 12/08/2023 Telephone [facility] [address] [place] [address] Saran Arias DPM Appointment (FOLLOW-UP) from Last [...] T Respiratory Rate 16 05/24/2020 3:38 PM DENTAL AIDE Oxygen Saturation 94% 01/26/2024 3:11 PM CDT Inhaled Oxygen Concentration - - Weight 63.5 kg (140 lb) 05/24/2020 3:38 PM DENTAL AIDE Height 143.5 cm (4' 8.5) 09/21/2017 4:21 PM CDT Body Mass Index 30.83 09/21/2017 4:21 PM CDT Plan of Treatment Upcoming Encounters Date Type Department Care Team (Late st Contact Info) Description 03/22/2024 2:15 PM DENTAL AIDE Office Visit [facility] [address] [place] [address] Saran Arias DPM [address] [place] [address] Health Maintenance Due Date Last Done Comments [...] 01/09/2024 02/12/2011 Medical Devices Implanted Type Area Technical Sales Engineer Device Identifier Shelf Expiration Date Model / Serial / Lot [id number] 1-4mm 30cc Medtronic Chips Canclls Freeze Dried Implanted:Qty: 1 on 09/23/2017 by Chase Snowden MD at [facility] Explanted:at [facility] (Quantity not on file) N/A: Spine Medtronic Spine/Ortho 09/30/2021 [id number]# / [id number] / Plate Ti Occipital 50mm Implanted:Qty: 1 on 09/23/2017 by Chase Snowden MD at [facility] N/A: Spine 04.161.001 / / Description:PLATE TI OCCIPIT AL 50MM Screw Occipital Ti 4.5 X 8 Implanted:Qty: 1 on 09/23/2017 by Chase Snowden MD at [facility] N/A: Spine 04.601.108 / / Description:SCREW OCCIPITAL TI 4.5 X 8 Screw Occipital Ti 4.5 X 10 Implanted:Qty: 1 on 09/23/2017 by Chase Snowden MD at [facility] N/A: Spine 04.601.110 / / Description:SCREW OCCIPITAL TI 4.5 X 10 Screw Cerv Post 4.5x14mm Synapse Va Canncls Titnm Implanted:Qty: 1 on 09/23/2017 by Chase Snowden MD at [facility] N/A: Spine 04.614.214 / / Description:SCREW CERV POST 4.5X14MM SYNAPSE VA CANNCLS TITNM Mushtaq Pre-Bent 3.8l561rl Titnm - [id number] Implanted:Qty: 2 on 09/23/2017 by Chase Snowden MD at [facility] N/A: Spine J And J Depuy Spine 04.161.032 # / / Set Screw Cerv Axon - [id number] Implanted:Qty: 2 on 09/23/2017 by Chase Snowden MD at [facility] N/A: Spine J And J Depuy Spine 406.104# / / Screw Cerv Post 4x10mm Synapseva Canncls Titnm - [id number] Implanted:Qty: 1 on 09/23/2017 by Chase Snowden MD at [facility] N/A: Spine J And J Depuy Spine 04.614.110 # / / Screw Cerv Post 4x12mm Synapseva Canncls Titnm - [id number] Implanted:Qty: 2 on 09/23/2017 by Chase Snowden MD at [facility] N/A: Spine J And J Depuy Spine 04.614.112 # / / Screw Cerv Post 4.5x10mm Synapse Va Canncls Titnm - [id number] Implanted:Qty: 1 on 09/23/2017 by Chase Snowden MD at [facility] N/A: Spine J And J Depuy Spine 04.614.210 # / / Screw Cerv Post 4.5x26mm Synapse Va Canncls Titnm - [id number] Implanted:Qty: 1 on 09/23/2017 by Chase Snowden MD at [facility] N/A: Spine J And J Depuy Spine 04.614.226 # / / Screw Cerv Post 4.5x28mm Synapse Va Canncls Titnm - [id number] Implanted:Qty: 3 on 09/23/2017 by Chase Snowden MD at [facility] N/A: Spine J And J Depuy Spine 04.614.228 # / / Set Screw Cerv Synapse - [id number] Implanted:Qty: 9 on 09/23/2017 by Chase Snowden MD at [facility] N/A: Spine J And J Depuy Spine [...] NOT Detected, N/A 12/31/2023 7:40 AM CDT [facility] IMP (carbapenem-r esistance gene) NOT Detected NOT Detected, N/A 12/31/2023 7:40 AM CDT [facility] NDM (carbapenem-r esistance gene) NOT Detected NOT Detected, N/A 12/31/2023 7:40 AM CDT [facility] OXA-48 like (carbapenem-r esistance gene) NOT Detected NOT Detected, N/A 12/31/2023 7:40 AM CDT [facility] VIM (carbapenem-r esistance gene) NOT Detected NOT Detected, N/A 12/31/2023 7:40 AM CDT [facility] Organism Pseudomonas aeruginosa 12/31/2023 7:40 AM CDT [facility] Other (Other) Non-Blood / Unknown 12/28/2023 2:44 PM CDT 12/28/2023 3:00 PM CDT [facility] - 12/31/2023 7:40 AM CDT Decreased carbapenem susceptibility likely due to changes in porin expression and/or efflux pump mechanisms. Saran Arias [facility] MICROBIOLOGY [facility] [address] [place] [address], * (ABNORMAL) AEROBIC BACTERIAL CULTURE, STAIN (12/28/2023 2:44 PM CDT) CULTURE RESULT(A) 01/01/2024 10:19 AM CDT [facility] CULTURE 2+ Staphylococcus aureus 01/01/2024 10:19 AM CDT [facility] CULTURE 1+ Pseudomonas aeruginosa 01/01/2024 10:19 AM CDT [facility] Comment:See resistance-gene testing (CARBA-R) CULTURE 1+ Mixed ata present 01/01/2024 10:19 AM CDT [facility] GRAM STAIN No Epithelial cells 01/01/2024 10:19 AM CDT [facility] GRAM STAIN No RBCs 01/01/2024 10:19 AM CDT [facility] GRAM STAIN No PMNs 01/01/2024 10:19 AM CDT [facility] GRAM STAIN No organisms seen 024 10:19 AM CDT [facility] Other (Other) Non-Blood / Unknown 12/28/2023 2:44 PM CDT 12/28/2023 3:00 PM CDT Narrative [facility] - 01/01/2024 10:19 AM CDT Mixed ata, [...] MEROPENEM 8: R Saran Arias DPM MICROBIOLOGY [facility] 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
[2024-03-02 14:40] LABS: Chloride* 99 mmol/L (96-114); Potassium* 3.7 mmol/L (3.6-5.1); Sodium* 132 mmol/L (135-149)
[2024-03-02 14:43] LABS: Anion Gap 8 mEq/L (7-15); Blood Urea Nitrogen* 18 mg/dL (7-30); Carbon Dioxide* 25 mmol/L (20-32); Creatinine* 0.9 mg/dL (0.5-1.5); Estimated Glomerular Filt Rate 65 ml/min
[2024-03-02 14:44] LABS: Calcium* 8.9 mg/dL (8.4-10.6); Glucose* 77 mg/dL (60-115)
== END 2024-03-02 13:17 | disposition home or self-care (01) ==
LOC: NPINS 13:16
PROVIDERS: PCP Family Medicine; Visit Provider Family Medicine
DX: M32.9 Systemic lupus erythematosus, unspecified (principal)
CPT/HCPCS: 80048; 84443

== ENCOUNTER 2024-03-06 07:21 | Outpatient (CLI) | payer MEDICARE, BC, SELFPAY ==
--- OUTSIDE RECORDS SUMMARY | 2024-03-09 02:42 | XMS_ITS | Continuity of Care Document ---
Author Organization [facility] Address [address] [place] [address] Phone Care Team Providers Care Pretzel Twister Name Role Phone Chase Snowden MD Unavailable [...] Seg Office/Outpatient Visit,Est, Mod 2017 Office/Outpatient Visit,New, [facility] 2017 Office/Outpatient Visit,Est, [...] Providers Copied on Encounter [facility], [address] [place] [address], [id number], [place] tel:[phone] No Information 1 Sp Stone. [facility] [place], [address] [place] [address], [id number], . [phone] [facility], [address] [place] [address], [id number], [place] tel:[phone] [facility] Arthrodesis status 1 No Information Office/Outpa tient Visit,Est, Mod [facility], [address] [place] [address], [id number], [place] tel:[phone] [facility] No Information 1 No Information Referring Provider: Prakash Mccauley, [facility] [address] [place], [address]. tel:[phone] Office/Outpa tient Visit,Est, Mod [facility], [address] [place] [address], [id number], [place] tel:[phone] [facility] Arthrodesis status 0 Sp Stone. [facility] [place], [address] [place] [address], [id number], [place]. tel:[phone] Referring Provider: Prakash Mccauley, [facility] [address] [place], [address]. tel:[phone] Office/Outpa tient Visit,Est, Mod [facility], [address] [place] [address], [id number], [place] tel:[phone] [facility] Kyphosis 0 Sp Stone. [facility] [place], [address] [place] [address], [id number], [place]. tel:[phone] Referring Provider: Prakash Mccauley, [facility] [address] [place], [address]. tel:[phone] Office/Outpa tient Visit,Est, Low [facility], [address], [place], [id number], [place] tel:[phone] [facility] Arthrodesis status Sp Stone. [facility] [place], [address] [place], [address], [id number], [place]. tel:[phone] Referring Provider: Prakash Mccauley, [facility] [address] [place], [address]. tel:[phone] Office/Outpa tient Visit,Est, Low [facility], [address], [place], [place], [id number], [place] tel:[phone] [facility] Encounter for other specified surgical aftercare Sp Stone. [facility] [place], [address] [place] [address], [address], [id number], [place]. tel:[phone] Referring Provider: Prakash Mccauley, [facility] [address] [place], [address]. tel:[phone] [facility], [address] [place] [id number], [place] tel:[phone] [facility] Encounter for other specified surgical aftercare Sp Stone. [facility] [place], [address] [place], [address], [id number], [place]. tel:[phone] Referring Provider: Prakash Mccauley, [facility] [address] [place], [address]. tel:[phone] [facility], [address], [place], [id number], [place] tel:[phone] [facility] Encounter for other specified surgical aftercare Sp Stone. [facility] [place], [address], [address], [id number], [place]. tel:[phone] Referring Provider: Prakash Mccauley, [facility] [address] [place], [address]. tel:[phone] [facility], [address], [place], [place], [id number], [place] tel:[phone] [facility] No Information Chris Meneses. [facility], [address], [place], [address], [place]. tel:[phone] Referring Provider: Prakash Mccauley, [facility] [address] [place], [address]. tel:[phone] [facility], [address], [place], [place], [id number], [place] tel:[phone] [facility] No Information Sp Stone. [facility] [place], [address] [place] [address], Ernesto [address] [place] [address], [id number], [place]. tel:[phone] Referring Provider: Prakash Mccauley, [facility] [address] [place], [address]. tel:[phone] Office/Outpa tient Visit,Est, Mod [facility], [address] [place] [address], [id number], [place] tel:[phone] [facility] Spinal stenosis, cervical region Sp Stone. [facility] [place], [address], [facility] [address], [place], [place], [id number], [place]. tel:[phone] Referring Provider: Prakash Mccauley, [facility] [address] [place], [address]. tel:[phone] Office/Outpa tient Visit,New, Mod [facility], [address], [place], [id number], [place] tel:[phone] [facility] Postlaminect jasmine kyphosisSpin al stenosis, cervical regionArthro desis status No Information Referring Provider: Prakash Mccauley, [facility] [address] [place], [address]. tel:[phone] Office/Outpa tient Visit,Est, Mod Z [facility], [address], [place], [address], [place] tel:[phone] [facility] No Information 2 No Information Referring Provider: Prakash Mccauley, [facility] [address] [place], [address]. tel:[phone] Z [facility], [address], [place], [address], [place] tel:[phone] [facility] No Information 2 No Information Referring Provider: Prakash Mccauley, [facility] [address] [place], [address]. tel:[phone] Z [facility], [address] [facility] [address], [place], [address], [place] tel:[phone] [facility] No Information No Information Referring Provider: Prakash Mccauley, [facility] [address] [place], [address]. tel:[phone] Z [facility], [address] [facility] [address], [place], [address], [place] tel:[phone] [facility] LUPUS ERYTHEMATOSU SOsteopeniaA nxietyGERDCA TARACT NOS No Information Office/Outpa tient Visit,New, Mod Z [facility], [address], [place], [address], [place] tel:[phone] [facility] No Information No Information Referring Provider: Prakash Mccauley, [facility] [address] [place], [address]. tel:[phone] Family History Family Member Type Diagnosis Age At Onset Mother Problem (finding) hypothyroidism Father Problem (finding) Cancer, unknown Mother Problem (finding) hypertension Problem (finding) Family history of prost ate cancer Payers Payer name Insurance type Covered republican ID Avaa angus(s) [facility] [id number] Medicare [facility] [id number] 1 Social History Type Description Quantity Date [...]
--- OUTSIDE RECORDS SUMMARY | 2024-03-09 02:42 | XMS_ITS | Clinical Summary ---
Author Organization [facility] Address [place], [place] [address] Care Team Providers Care Field Party Manager Name Role Phone Prakash Moore MD Primary Care Provider [phone] Allergies Active Allergy Reactions Criticality Noted Date [...] once daily. Active MULTIVITS W-FE,OTHER MIN (PEDIATRIC [id number] ORAL) Take by mouth once daily. Active [...] Description 01/26/2024 3:15 PM CDT Office Visit [facility] [address] [place] [address] Saran Arias DPMk Follow Up (Right foot ulcer, 2 week follow up) 01/26/2024 Travel 01/11/2024 1:30 PM CDT Office Visit [facility] [address] [place] [address] Saran Arias DPMk Ulcer (Follow up-right foot) 01/11/2024 Travel 01/06/2024 Telephone [facility] [address] [facility] [place] [address] Saran Arias DPMk Anticoagulation (BPA Ciprofloxacin and Warfarin) 01/06/2024 Telephone [facility] [address] [place] [address] Saran Arias DPM Foot Problem (PAINFUL MEDICATION ) 01/04/2024 1:30 PM CDT Office Visit [facility] [address] [place] [address] Saran Arias DPM Follow Up (Right ulcer check) 01/04/2024 Travel 12/31/2023 Telephone [facility] [address] [place] [address] Saran Arias DPM Questions 12/31/2023 Telephone [facility] [address] [place] [address] Saran Arias DPM Anticoagulation (BPA: CIPROFLOXACIN ) 12/31/2023 Orders Only [address] [address] Saran Arias DPM <No scans attached> 12/28/2023 2:30 PM CDT Office Visit [facility] [address] [place] [address] Saran Arias DPM Ulcer (Follow up-right foot) 12/28/2023 Travel 12/08/2023 Telephone [facility] [address] [place] [address] Saran Arias DPM Appointment (FOLLOW-UP) from Last [...] T Respiratory Rate 16 05/24/2020 3:38 PM ROVING WINDER Oxygen Saturation 94% 01/26/2024 3:11 PM CDT Inhaled Oxygen Concentration - - Weight 63.5 kg (140 lb) 05/24/2020 3:38 PM ROVING WINDER Height 143.5 cm (4' 8.5) 09/21/2017 4:21 PM CDT Body Mass Index 30.83 09/21/2017 4:21 PM CDT Plan of Treatment Upcoming Encounters Date Type Department Care Team (Late st Contact Info) Description 03/22/2024 2:15 PM ROVING WINDER Office Visit [facility] [address] [place] [address] Saran Arias DPM [address] [place] [address] Health Maintenance Due Date Last Done Comments [...] 01/09/2024 02/12/2011 Medical Devices Implanted Type Area Central Sterile Technician Device Identifier Shelf Expiration Date Model / Serial / Lot [id number] 1-4mm 30cc Medtronic Chips Canclls Freeze Dried Implanted:Qty: 1 on 09/23/2017 by Chase Snowden MD at [facility] Explanted:at [facility] (Quantity not on file) N/A: Spine Medtronic Spine/Ortho 09/30/2021 [id number] / [id number] / Plate Ti Occipital 50mm Implanted:Qty: 1 on 09/23/2017 by Chase Snowden MD at [facility] N/A: Spine 04.161.001 / / Description:PLATE TI OCCIPIT AL 50MM Screw Occipital Ti 4.5 X 8 Implanted:Qty: 1 on 09/23/2017 by Chase Snowden MD at [facility] N/A: Spine 04.601.108 / / Description:SCREW OCCIPITAL TI 4.5 X 8 Screw Occipital Ti 4.5 X 10 Implanted:Qty: 1 on 09/23/2017 by Chase Snowden MD at [facility] N/A: Spine 04.601.110 / / Description:SCREW OCCIPITAL TI 4.5 X 10 Screw Cerv Post 4.5x14mm Synapse Va Canncls Titnm Implanted:Qty: 1 on 09/23/2017 by Chase Snowden MD at [facility] N/A: Spine 04.614.214 / / Description:SCREW CERV POST 4.5X14MM SYNAPSE VA CANNCLS TITNM Mushtaq Pre-Bent 3.1m954vp Titnm - [id number] Implanted:Qty: 2 on 09/23/2017 by Chase Snowden MD at [facility] N/A: Spine J And J Depuy Spine 04.161.032 # / / Set Screw Cerv Axon - [id number] Implanted:Qty: 2 on 09/23/2017 by Chase Snowden MD at [facility] N/A: Spine J And J Depuy Spine 406.104# / / Screw Cerv Post 4x10mm Synapseva Canncls Titnm - [id number] Implanted:Qty: 1 on 09/23/2017 by Chase Snowden MD at [facility] N/A: Spine J And J Depuy Spine 04.614.110 # / / Screw Cerv Post 4x12mm Synapseva Canncls Titnm - [id number] Implanted:Qty: 2 on 09/23/2017 by Chase Snowden MD at [facility] N/A: Spine J And J Depuy Spine 04.614.112 # / / Screw Cerv Post 4.5x10mm Synapse Va Canncls Titnm - [id number] Implanted:Qty: 1 on 09/23/2017 by Chase Snowden MD at [facility] N/A: Spine J And J Depuy Spine 04.614.210 # / / Screw Cerv Post 4.5x26mm Synapse Va Canncls Titnm - [id number] Implanted:Qty: 1 on 09/23/2017 by Chase Snowden MD at [facility] N/A: Spine J And J Depuy Spine 04.614.226 # / / Screw Cerv Post 4.5x28mm Synapse Va Canncls Titnm - [id number] Implanted:Qty: 3 on 09/23/2017 by Chase Snowden MD at [facility] N/A: Spine J And J Depuy Spine 04.614.228 # / / Set Screw Cerv Synapse - [id number] Implanted:Qty: 9 on 09/23/2017 by Chase Snowden MD at [facility] N/A: Spine J And J Depuy [...] NOT Detected, N/A 12/31/2023 7:40 AM CDT [facility] IMP (carbapenem-r esistance gene) NOT Detected NOT Detected, N/A 12/31/2023 7:40 AM CDT [facility] NDM (carbapenem-r esistance gene) NOT Detected NOT Detected, N/A 12/31/2023 7:40 AM CDT [facility] OXA-48 like (carbapenem-r esistance gene) NOT Detected NOT Detected, N/A 12/31/2023 7:40 AM CDT [facility] VIM (carbapenem-r esistance gene) NOT Detected NOT Detected, N/A 12/31/2023 7:40 AM CDT [facility] Organism Pseudomonas aeruginosa 12/31/2023 7:40 AM CDT [facility] Other (Other) Non-Blood / Unknown 12/28/2023 2:44 PM CDT 12/28/2023 3:00 PM CDT [facility] - 12/31/2023 7:40 AM CDT Decreased carbapenem susceptibility likely due to changes in porin expression and/or efflux pump mechanisms. Saran Arias [facility] MICROBIOLOGY [facility] [address] [place] [address], * (ABNORMAL) AEROBIC BACTERIAL CULTURE, STAIN (12/28/2023 2:44 PM CDT) CULTURE RESULT(A) 01/01/2024 10:19 AM CDT [facility] CULTURE 2+ Staphylococcus aureus 01/01/2024 10:19 AM CDT [facility] CULTURE 1+ Pseudomonas aeruginosa 01/01/2024 10:19 AM CDT [facility] Comment:See resistance-gene testing (CARBA-R) CULTURE 1+ Mixed ata present 01/01/2024 10:19 AM CDT [facility] GRAM STAIN No Epithelial cells 01/01/2024 10:19 AM CDT [facility] GRAM STAIN No RBCs 01/01/2024 10:19 AM CDT [facility] GRAM STAIN No PMNs 01/01/2024 10:19 AM CDT [facility] GRAM STAIN No organisms seen 024 10:19 AM CDT [facility] Other (Other) Non-Blood / Unknown 12/28/2023 2:44 PM CDT 12/28/2023 3:00 PM CDT Narrative [facility] - 01/01/2024 10:19 AM CDT Mixed [...] MEROPENEM 8: R Saran Arias DPM MICROBIOLOGY [facility] 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
== END 2024-03-06 07:22 | disposition home or self-care (01) ==
LOC: AMB 03-09 02:39
PROVIDERS: PCP Family Medicine; Visit Provider Emergency Medicine
DX: R50.9 Fever, unspecified (principal); R53.1 Weakness
CPT/HCPCS: A0425; A0427

== ENCOUNTER 2024-03-06 07:53 | Inpatient (IN) | payer MEDICARE, BC, SELFPAY ==
[2024-03-06] VITALS (16 sets, daily range): BP systolic 103–159; BP diastolic 50–87; PULSE 76–115; RESP 16–22; TEMP 36.6–38.4; O2SAT 88–95; BMI 27.3; BMI 26.8
--- NOTE | 2024-03-06 08:05 | ED.GENADULT ---
HPI - General Adult General Chief complaint: Weakness Stated complaint: Weakness Time Seen by Provider: 03/06/24 08:01 History of Present Illness HPI narrative: Patient presents to the emergency department complaining of increased weakness. Patient was sent from [facility] for increased weakness and a fever. Patient is currently being treated for cellulitis. Patient is also complaining of left elbow pain . 78-year-old woman presenting to the emergency department via EMS with concern weakness. Extensive past medical history reviewed as below. History of atrial fibrillation anticoagulated with Coumadin. Notes a history of cellulitis in the lower extremities and that she is having bilateral lower leg pain. On physical exam also seems to be having some belly pain or just generally tender in various areas of her person. Temperature of 100? on arrival. Is also noted to be tachycardic. No cough for shortness of breath. Last seen in this facility on 02/11/2024 and initiated on treatment for cellulitis. Received a g of Rocephin and continued on course of clindamycin however looks like this was most recently changed to cephalexin Related Data Home Medications ?Medication ?Instructions ?Recorded ?Confirmed melatonin 3 mg capsule 3 mg PO HS PRN 01/13/22 03/06/24 levothyroxine 25 mcg tablet 25 mcg PO DAILY 06/05/23 03/06/24 loratadine 10 mg tablet 10 mg PO DAILY allergic symptoms 06/05/23 03/06/24 clobetasol 0.05 % lotion 1 applic topical BID PRN 07/13/23 03/06/24 estradiol 0.01% (0.1 mg/gram) 0.5 g vaginal Q7D 10/19/23 03/06/24 vaginal cream clindamycin HCl 300 mg capsule 300 mg PO TID 02/11/24 03/06/24 cephalexin 500 mg capsule 500 mg PO 3XD 03/06/24 03/06/24 hydroxychloroquine 200 mg tablet 200 mg PO DAILY@1200 03/06/24 03/06/24 magnesium oxide 400 mg (241.3 mg 400 mg PO DAILY 03/06/24 03/06/24 magnesium) tablet ondansetron 4 mg disintegrating 4 mg PO Q6H PRN nausea and vomiting 03/06/24 03/06/24 tablet warfarin 1 mg tablet 1 mg PO DAILY 10/28/24 10/28/24 Previous Rx's ?Medication ?Instructions ?Recorded bupropion HCl 150 mg 24 hr tablet, 150 mg PO DAILY #90 tabs 02/25/23 extended release furosemide 40 mg tablet 40 mg PO DAILY #90 tabs 02/25/23 losartan 25 mg tablet 25 mg PO DAILY #90 tabs 02/25/23 gabapentin 400 mg capsule 1,200 mg (3 x 400 mg) PO BID #540 05/14/23 caps prednisone 10 mg tablet 10 mg PO DAILY #90 tabs 11/24/23 omeprazole 20 mg capsule,delayed 20 mg PO DAILY #90 caps 01/14/24 release potassium chloride 10 mEq 10 meq PO BID #60 caps 01/14/24 capsule,extended release hydrocodone 5 mg-acetaminophen 325 1 tab PO QDAY pain 30 days #30 tabs 01/16/24 mg tablet metoprolol succinate 25 mg 25 mg PO DAILY #90 tabs 01/18/24 tablet,extended release 24 hr Allergies Allergy/AdvReac Type Severity Reaction Status Date / Time amitriptyline Allergy Severe disorientat Verified 11/29/23 12:40 ion penicillin V Allergy Severe upset Verified 11/29/23 12:40 stomach and rash perphenazine Allergy Severe disorientat Verified 11/29/23 12:40 ion adhesive Allergy Unknown Unknown Verified 11/29/23 12:40 Sulfa (Sulfonamide Allergy Unknown Verified 03/06/24 13:25 Antibiotics) bee venom protein (honey bee) AdvReac Severe Anaphylaxis Verified 11/29/23 12:40 latex AdvReac Severe Rash Verified 11/29/23 12:40 amoxicillin AdvReac Intermediate Diarrhea Verified 11/29/23 12:40 clavulanic acid AdvReac Intermediate Diarrhea Verified 03/06/24 13:25 Review of Systems Status of ROS: Reports: 6 or more systems reviewed and unremarkable except as noted in History and below [facility] Medical History (Updated 03/06/24 @ 16:06 by Jean-Pierre Jose MD) Elevated troponin ?R79.89 - Other specified abnormal findings of blood chemistry (ICD-10) Essential (primary) hypertension ?I10 - Essential (primary) hypertension (ICD-10) POLST (Physician Orders for Life-Sustaining Treatment) ?Z78.9 - Other specified health status (ICD-10) Systemic lupus erythematosus ?M32.9 - Systemic lupus erythematosus, unspecified (ICD-10) Heart failure ?I50.9 - Heart failure, unspecified (ICD-10) Frailty syndrome in geriatric patient ?R54 - Age-related physical debility (ICD-10) Cognitive impairment ?R41.89 - Other symptoms and signs involving cognitive functions and awareness (ICD-10) Heart failure ?I50.9 - Heart failure, unspecified (ICD-10) DVT (deep venous thrombosis) ?I82.409 - Acute embolism and thrombosis of unspecified deep veins of unspecified lower extremity (ICD-10) 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, unspecified (ICD-10) Anemia due to gastrointestinal blood loss ?D50.0 - Iron deficiency anemia secondary to blood loss (chronic) (ICD-10) Anemia of chronic disease ?D63.8 - Anemia in other chronic diseases classified elsewhere (ICD-10) Atrial fibrillation with rapid ventricular response ?I48.91 - Unspecified atrial fibrillation (ICD-10) Atrial fibrillation ?I48.91 - Unspecified atrial fibrillation (ICD-10) Hypothyroidism ?E03.9 - Hypothyroidism, unspecified (ICD-10) Left leg cellulitis ?L03.116 - Cellulitis of left lower limb (ICD-10) Psoriasis ?L40.9 - Psoriasis, unspecified (ICD-10) Anemia ?D64.9 - Anemia, unspecified (ICD-10) Yeast dermatitis ?B37.2 - Candidiasis of skin and nail (ICD-10) Environmental allergies ?Z91.09 - Other allergy status, other than to drugs and biological substances (ICD-10) Osteoarthritis of left hip ?M16.12 - Unilateral primary osteoarthritis, left hip (ICD-10) Osteoarthritis of right knee ?M17.11 - Unilateral primary osteoarthritis, right knee (ICD-10) Osteoarthritis of right shoulder ?M19.011 - Primary osteoarthritis, right shoulder (ICD-10) Urethral caruncle ?N36.2 - Urethral caruncle (ICD-10) Weakness ?R53.1 - Weakness (ICD-10) Unsteady gait ?R26.81 - Unsteadiness on feet (ICD-10) Tubular adenoma ?D36.9 - Benign neoplasm, unspecified site (ICD-10) Spinal stenosis ?M48.00 - Spinal stenosis, site unspecified (ICD-10) 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81 - Other malaise (ICD-10) Physical debility ?R53.81 - Other malaise (ICD-10) Peripheral edema (05/12/10) ?R60.9 - Edema, unspecified (ICD-10) Osteopenia (05/26/11) ?M85.80 - Other specified disorders of bone density and structure, unspecified site (ICD-10) Nonspecific colitis ?K52.9 - Noninfective gastroenteritis and colitis, unspecified (ICD-10) Long-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 - Immunodeficiency due to drugs (ICD-10) ?T38.0X5A - Adverse effect of glucocorticoids and synthetic analogues, initial encounter (ICD-10) ?Z79.52 - intermission coordinator (current) use of systemic steroids (ICD-10) Hypokalemia ?E87.6 - Hypokalemia (ICD-10) Hypertension (08/16/12) ?I10 - Essential (primary) hypertension (ICD-10) Hyperlipidemia ?E78.5 - Hyperlipidemia, unspecified (ICD-10) High C-reactive protein ?R79.82 - Elevated C-reactive protein (CRP) (ICD-10) Health care directive on file (07/05/15) ?Z78.9 - Other specified health status (ICD-10) Gastroesophageal reflux disease (04/11/10) ?K21.9 - Gastro-esophageal reflux disease without esophagitis (ICD-10) Dilated cardiomyopathy (05/12/10) ?I42.0 - Dilated cardiomyopathy (ICD-10) Dilated bile duct ?K83.8 - Other specified diseases of biliary tract (ICD-10) Depression (08/16/12) ?F32.A - Depression, unspecified (ICD-10) Constipation ?K59.00 - Constipation, unspecified (ICD-10) Colitis ?K52.9 - Noninfective gastroenteritis and colitis, unspecified (ICD-10) Chronic pain syndrome ?G89.4 - Chronic pain syndrome (ICD-10) Chronic pain ?G89.29 - Other chronic pain (ICD-10) Cellulitis ?L03.90 - Cellulitis, unspecified (ICD-10) Anxiety (04/11/10) ?F41.9 - Anxiety disorder, unspecified (ICD-10) Abnormal liver function tests ?R79.89 - Other specified abnormal findings of blood chemistry (ICD-10) Long-term (current) use of anticoagulants, INR goal 2.0-3.0 ?Z79.01 - intermission coordinator (current) use of anticoagulants (ICD-10) Knee osteoarthritis ?M17.10 - Unilateral primary osteoarthritis, unspecified knee (ICD-10) POLST (Physician Orders for Life-Sustaining Treatment) ?Z78.9 - Other specified health status (ICD-10) Irritation of right ear ?H93.8X1 - Other specified disorders of right ear (ICD-10) History of pulmonary embolism (2017) ?Z86.711 - Personal history of pulmonary embolism (ICD-10) History of peptic ulcer ?Z87.11 - Personal history of peptic ulcer disease (ICD-10) History of deep vein thrombosis (DVT) of lower extremity (2016) ?Z86.718 - Personal history of other venous thrombosis and embolism (ICD-10) Head injury with loss of consciousness ?S06.9X9A - Unspecified intracranial injury with loss of consciousness of unspecified duration, initial encounter (ICD-10) Surgical History S/P foot surgery, right (08/28/14) ?Z98.890 - Other specified postprocedural states (ICD-10) 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) ?Z96.619 - Presence of unspecified artificial shoulder joint (ICD-10) Status post lumbar spinal fusion (04/11/10) ?Z98.1 - Arthrodesis status (ICD-10) Status post cervical spinal arthrodesis (09/2017) ?Z98.1 - Arthrodesis status (ICD-10) History of total hip replacement (05/12/10) ?Z96.649 - Presence of unspecified artificial hip joint (ICD-10) History of left knee replacement (05/12/10) ?Z96.652 - Presence of left artificial knee joint (ICD-10) History of hysterectomy (04/11/10) ?Z90.710 - Acquired absence of both cervix and uterus (ICD-10) History of colonoscopy (05/18/19) ?Z98.890 - Other specified postprocedural states (ICD-10) History of cholecystectomy (05/12/10) ?Z90.49 - Acquired absence of other specified parts of digestive tract (ICD-10) Family History Brother Coronary artery disease Father Cancer Social History Narrative: Patient lives at [facility], independent living at [facility]. She is . 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 Her daughter, Giselle, lives in the area. Code status is DNR/DNI. Healthcare power of commonwealth attorney is her daughter Giselle from [place]. She quit smoking in 1996. Has been chewing nicotine gum since then. She says she chews pieces constantly throughout the day and is never without a piece in her mouth. She does not drink alcohol. What is your current living situation?: I presently have a place to live Problems where you live: no known problems Problems where you live details: none In the past 12 months, utilities in danger of being shut off: no In past 12 months, lack of transportation kept you from medical appts, meetings, work, or getting things needed for daily living: no In the past 12 mos, have been you worried that your food would run out before you had money to buy more?: never true In the past 12 mos, the food you bought just didn't last and you didn't have money to buy more?: never true Highest level of school completed/degree received: Master's degree Smoking Status: Former smoker Do you use any of these nicotine containing products: None Nicotine containing products detail: gum Second hand tobacco smoke exposure: No How often do you have a drink containing alcohol: never How often do you have six or more drinks on one occasion: Never AUDIT-C Alcohol total score: 0 Non-prescribed substance use: denies use Caffeine: Yes (coffee 12 cups) How often does anyone, including family, friends and others, physically hurt you: never How often does anyone, including family, friends and others, insult or talk down to you: never How often does anyone, including family, friends and others, threaten you with harm: never How often does anyone, including family, friends and others, scream or curse at you: never Little interest or pleasure in doing things: several days Feeling down, depressed, or hopeless: more than half the days service: No Exam Narrative: Exam Narrative: Alerts easily. Easily conversant. Holding her arms up flexed at the elbow against her body. Seems generally uncomfortable. Very uncomfortable to go to a seated or semi seated position. Moans in apparent pain. Lips are dry. Oropharynx a little dry. Subtle smell of ketones? Difficult to get good lung auscultation but appeared clear. Heart is tachycardic and what appears to be regular rhythm. Abdomen is diffusely mildly tender. Guards a little bit. Lower extremities bilaterally brightly erythematous and diffusely tender. Significant calor. Indurated. Const: Vital Signs, click to edit/add: Vital Signs - 24 hr 03/06/24 07:57 03/06/24 08:25 03/06/24 08:28 Temperature 100.0 F H 101.2 F H Pulse Rate 113 H Pulse Rate [Left] 115 H Pulse Rate [Pulse Oximeter] 114 H Respiratory Rate 20 16 Blood Pressure 159/77 H Blood Pressure [Le ft Arm] 159/77 H Blood Pressure [Ri ght Upper Arm] 140/87 H Pulse Oximetry 93 94 95 Oxygen Delivery Me thod Room Air Room Air 03/06/24 08:45 03/06/24 09:02 03/06/24 09:22 Temperature Pulse Rate 107 H 107 H 96 Pulse Rate [Left] Pulse Rate [Pulse Oximeter] Respiratory Rate 16 Blood Pressure 145/59 H 144/68 H 114/55 L Blood Pressure [Le ft Arm] Blood Pressure [Ri ght Upper Arm] Pulse Oximetry 94 90 88 Oxygen Delivery Me thod 03/06/24 09:41 03/06/24 10:02 03/06/24 10:34 Temperature Pulse Rate 103 H 105 H 102 H Pulse Rate [Left] Pulse Rate [Pulse Oximeter] Respiratory Rate 16 Blood Pressure 113/51 L 124/50 L 136/63 Blood Pressure [Le ft Arm] Blood Pressure [Ri ght Upper Arm] Pulse Oximetry 88 90 91 Oxygen Delivery Me thod 03/06/24 10:41 03/06/24 10:44 03/06/24 10:48 Temperature 100.1 F H 100.1 F H Pulse Rate 98 Pulse Rate [Left] Pulse Rate [Pulse Oximeter] Respiratory Rate Blood Pressure 126/70 Blood Pressure [Le ft Arm] Blood Pressure [Ri ght Upper Arm] Pulse Oximetry 90 Oxygen Delivery Me thod Documenting provider has reviewed patient's vital signs: yes Course Vital Signs Vital signs: Initial Vital Signs Temperature 100.0 F H 03/06/24 07:57 Temperature Source Temporal Artery Scan 03/06/24 07:57 Pulse Rate 115 H 03/06/24 07:57 Pulse Rhythm Regular 03/06/24 07:57 Pulse Strength 3+ Normal 03/06/24 07:57 Respiratory Rate 20 03/06/24 07:57 Blood Pressure 140/87 H 03/06/24 07:57 Blood Pressure Mean 104 03/06/24 07:57 Blood Pressure Position Semi-Fowlers 03/06/24 07:57 Pulse Oximetry 93 03/06/24 07:57 Oxygen Delivery Method Room Air 03/06/24 07:57 Vital Signs Temperature 100.0 F H 03/06/24 07:57 Pulse Rate 115 H 03/06/24 07:57 Respiratory Rate 20 03/06/24 07:57 Blood Pressure 140/87 H 03/06/24 07:57 Pulse Oximetry 93 03/06/24 07:57 Oxygen Delivery Method Room Air 03/06/24 07:57 Temperature 98.6 F 03/06/24 12:04 Pulse Rate 104 H 03/06/24 12:04 Respiratory Rate 18 03/06/24 12:04 Blood Pressure 104/55 L 03/06/24 12:04 Pulse Oximetry 92 03/06/24 12:04 Oxygen Delivery Method Room Air 03/06/24 12:04 Medications Administered Medications: Generic Name Dose Route Start Last Admin Trade Name Freq PRN Reason Stop Dose Admin Hydrocodone Bitart/Acetaminophen 1 tab 03/06/24 11:15 03/06/24 12:22 Hydrocodone-Acetamin 5-325 Mg 1 Tab PO 1 tab DAILY LUIS Administration Vancomycin/PEG/NADA/Lysine/Water 1 gm in 200 mls @ 200 mls/hr 03/06/24 14:30 03/06/24 14:34 Vancomycin 1 Gm/200 Ml IVPB 150 mls/hr Q24H LUIS Administration Morphine Sulfate 2 mg 03/06/24 11:40 03/06/24 12:20 Morphine 4 Mg/Ml Inj IVP 2 mg Q1H PRN Administration Ondansetron HCl 4 mg 03/06/24 11:15 03/06/24 12:22 Ondansetron Odt 4 Mg Tab PO 4 mg Q6H LUIS Administration Discontinued Medications Generic Name Dose Route Start Last Admin Trade Name Prem PRN Reason Stop Dose Admin Acetaminophen 1,000 mg 03/06/24 08:46 03/06/24 08:51 Acetaminophen 500 Mg Tablet PO 03/06/24 08:47 1,000 mg ONCE ONE Administration Hydrocortisone Sodium Succinate 100 mg 03/06/24 12:00 03/06/24 12:22 Hydrocortisone Sod Succinate 50 Mg/Ml Inj IVP 03/07/24 04:01 100 mg Q8H LUIS Administration Sodium Chloride 500 mls @ 500 mls/hr 03/06/24 08:16 03/06/24 10:20 0.9 % Sodium Chloride 500 Ml IV 03/06/24 09:15 Infused .Q1H ONE Infusion Piperacillin Sod/Tazobactam 100 mls @ 200 mls/hr 03/06/24 09:55 03/06/24 15:18 Sod 4.5 gm/ Sodium Chloride IVPB 03/06/24 09:56 Infused ONCE ONE Infusion Medical Decision Making MDM Narrative Medical decision making narrative: Have to presume potential sepsis at this point. Meets criteria with tachycardia, temperature and suspected source. Initiate fluid resuscitation but take care with history of CHF. Blood culture limited to 1 set due to bottle availability. POLST reviewed. DNR and selective treatments noted Did receive normal saline IV and ordered for Zosyn pending collection of urine. White count is reassuring though CRP rather elevated. Mildly elevated troponin though in the setting of moderately elevated proBNP as per concern above. Chest x-ray by my read without infiltrate or pneumothorax Radiology over-read below TECHNIQUE: Chest 1 portable view. COMPARISON: None. FINDINGS: No pneumothorax or pleural effusion. Lungs are clear. Aortic atherosclerosis and tortuosity. Borderline/mild enlargement of the cardiac silhouette. No evidence of pulmonary edema. Upper abdomen and osseous structures as imaged show no acute abnormality. IMPRESSION: No evidence of acute cardiopulmonary disease. By my read abdominal x-ray without acute findings; no concerning air-fluid levels. Postoperative changes noted. Radiology over-read below Study:?XRay-Abdomen/Pelvis 1 VIEW-03/06/2024 8:55:30 AM Ordering Physician:Reymundo Morejon Final Report: Indication: Abdominal tenderness Technique: Plain film examination of the abdomen and pelvis was performed Comparison: None Findings: Enlarged heart. Atherosclerotic changes of visible vessels. Demineralized osseous structures. Severe degenerative changes. Scoliosis. Postsurgical changes of the spine. Right hip arthroplasty. 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 Within the limitations of single-view portable supine abdomen radiography, there is no acute appearing GI finding. Impression: 1. No obvious acute GI finding by supine single-view portable abdominal radiography. 2. Incidental non GI findings as discussed above Have discussed with hospitalist anticipating admission. Would treat as sepsis with cellulitic source at this point. Ketones present in urine Medical Records Medical records reviewed: Yes I reviewed the patient's medical records Lab Data Lab results reviewed: Yes I reviewed the patient's lab results Labs: Lab Results 03/06/24 03/06/24 03/06/24 Range/Units 08:16 08:20 08:45 WBC 7.74 (4.50-11.00) K/uL RBC 3.79 L (4.00-5.20) m/uL Hgb 10.1 L (12.0-16.0) gm/dL Hct 33.4 (33.0-51.0) % MCV 88 (80-100) fL MCH 27 (26-34) pg MCHC 30 L (32-36) gm/dL RDW Coeff of Rolo 15.8 H (11.5-15.5) % Plt Count 276 (140-440) K/uL Neut % (Auto) 64.6 (42.0-72.0) % Lymph % (Auto) 16.5 L (20-44) % Erath % (Auto) 15.2 H (0.0-11.0) % Eos % (Auto) 3.0 (0.0-7.0) % Baso % (Auto) 0.6 (0.0-3.0) % Neut # (Auto) 4.99 (1.7-7.0) K/uL Lymph # (Auto) 1.30 (0.90-2.90) K/uL Erath # (Auto) 1.20 H (0.00-0.90) K/UL Eos # (Auto) 0.23 (0.00-0.50) K/uL Baso # (Auto) 0.05 (0.00-0.30) K/uL Abs Immat Gran (auto) 0.01 (0.00-0.30) K/uL Imm/Tot Granulo (auto) 0.1 % INR 1.47 H (0.91-1.10) Sodium 138 (135-149) mmol/L Potassium 3.0 L (3.6-5.1) mmol/L Chloride 102 (96-114) mmol/L Carbon Dioxide 24 (20-32) mmol/L Anion Gap 12 (7-15) mEq/L BUN 9 (7-30) mg/dL Creatinine 0.6 (0.5-1.5) mg/dL Estimated Creat Clear 32.23 Estimated GFR 91 ml/min Glucose 72 (60-115) mg/dL Calcium 8.8 (8.4-10.6) mg/dL Total Bilirubin 0.6 (0.1-1.5) mg/dL Direct Bilirubin 0.2 (0.0-0.5) mg/dL AST 27 (12-35) U/L ALT 12 (4-35) U/L Alkaline Phosphatase 78 (40-150) U/L Troponin I 0.07 H* (0.01-0.04) ng/mL C-Reactive Protein 16.7 H (0.5-1.0) mg/dL NT-Pro-B Natriuret Pep 2160 pg/mL Total Protein 6.2 (6.0-8.3) g/dL Albumin 3.3 (3.3-5.0) g/dL Urine Color (Yellow) Urine Appearance (Clear) Urine pH (5.0-8.5) Ur Specific Hume (1.000-1.030) Urine Protein (Negative) Urine Glucose (UA) (Negative) Urine Ketones (Negative) Urine Blood (Negative) Urine Nitrite (Negative) Urine Bilirubin (Negative) Urine Urobilinogen (0.2-1.0) Ur Leukocyte Esterase (Negative) Urine RBC (0-2) Urine WBC (0-5) Ur Squamous Epith Cells (None-Few) Urine Bacteria (None) SARS-CoV-2 (PCR) (Negative) Influenza Type A (PCR) (Negative) Influenza Type B (PCR) (Negative) RSV (PCR) (Negative) POC Troponin I 0.04 (0.01-0.04) ng/ml 03/06/24 03/06/24 Range/Units 09:34 10:33 WBC (4.50-11.00) K/uL RBC (4.00-5.20) m/uL Hgb (12.0-16.0) gm/dL Hct (33.0-51.0) % MCV (80-100) fL MCH (26-34) pg MCHC (32-36) gm/dL RDW Coeff of Rolo (11.5-15.5) % Plt Count (140-440) K/uL Neut % (Auto) (42.0-72.0) % Lymph % (Auto) (20-44) % Erath % (Auto) (0.0-11.0) % Eos % (Auto) (0.0-7.0) % Baso % (Auto) (0.0-3.0) % Neut # (Auto) (1.7-7.0) K/uL Lymph # (Auto) (0.90-2.90) K/uL Erath # (Auto) (0.00-0.90) K/UL Eos # (Auto) (0.00-0.50) K/uL Baso # (Auto) (0.00-0.30) K/uL Abs Immat Gran (auto) (0.00-0.30) K/uL Imm/Tot Granulo (auto) % INR (0.91-1.10) Sodium (135-149) mmol/L Potassium (3.6-5.1) mmol/L Chloride (96-114) mmol/L Carbon Dioxide (20-32) mmol/L Anion Gap (7-15) mEq/L BUN (7-30) mg/dL Creatinine (0.5-1.5) mg/dL Estimated Creat Clear Estimated GFR ml/min Glucose (60-115) mg/dL Calcium (8.4-10.6) mg/dL Total Bilirubin (0.1-1.5) mg/dL Direct Bilirubin (0.0-0.5) mg/dL AST (12-35) U/L ALT (4-35) U/L Alkaline Phosphatase (40-150) U/L Troponin I (0.01-0.04) ng/mL C-Reactive Protein (0.5-1.0) mg/dL NT-Pro-B Natriuret Pep pg/mL Total Protein (6.0-8.3) g/dL Albumin (3.3-5.0) g/dL Urine Color Yellow (Yellow) Urine Appearance Clear (Clear) Urine pH 6.5 (5.0-8.5) Ur Specific Hume 1.015 (1.000-1.030) Urine Protein Negative (Negative) Urine Glucose (UA) Negative (Negative) Urine Ketones 3+ A (Negative) Urine Blood Negative (Negative) Urine Nitrite Negative (Negative) Urine Bilirubin 1+ A (Negative) Urine Urobilinogen 0.2 (0.2-1.0) Ur Leukocyte Esterase Negative (Negative) Urine RBC 0-2 (0-2) Urine WBC 0-2 (0-5) Ur Squamous Epith Cells None (None-Few) Urine Bacteria None (None) SARS-CoV-2 (PCR) Negative SARS-CoV-2 (Negative) Influenza Type A (PCR) Negative PCR FLU A (Negative) Influenza Type B (PCR) Negative PCR FLU B (Negative) RSV (PCR) Negative PCR RSV (Negative) POC Troponin I (0.01-0.04) ng/ml ECG Data Attestation: I personally reviewed and interpreted this ECG as follows: (Evolving bundle-branch block. Sinus tachycardia. Rate of 114. PVC. Baseline irritability) Critical Care Time Critical Care Time Critical Care Time: Yes Attestation: The patient required my highest level preparedness to intervene emergently and I personally spent this critical care time directly and personally managing the patient. This critical care time included: Obtaining a history; Examining the patient; Pulse oximetry; Ordering and reviewing of studies; Arranging urgent treatment with development of a management plan; Evaluation of patients response to treatment; Frequent reassessment discussions with other providers. This critical care time was performed to assess and manage the high probability of imminent life-threatening deterioration that could result in multiorgan failure. It was exclusive of separate billable procedures and treating other patients and teaching time. Total Critical Care Time in Minutes: 70 Discharge Plan Discharge Clinical Impression: Sepsis, Cellulitis, Dehydration Patient Disposition: Admitted As Observation Condition: Stable
--- NOTE | 2024-03-06 08:16 | CRLHL7_ITS ---
For Patients: As a result of the Cures Act, medical imaging exams and procedure reports are released immediately into your electronic medical record. You may view this report before your referring provider. If you have questions, please contact your health care provider. INDICATION: Generalized tenderness in chest and abdomen. TECHNIQUE: Chest 1 portable view. COMPARISON: None. FINDINGS: No pneumothorax or pleural effusion. Lungs are clear. Aortic atherosclerosis and tortuosity. Borderline/mild enlargement of the cardiac silhouette. No evidence of pulmonary edema. Upper abdomen and osseous structures as imaged show no acute abnormality. IMPRESSION: No evidence of acute cardiopulmonary disease. Dictated by Milad Chandler MD @ 03/06/2024 9:11:28 AM (Electronically Signed)
--- NOTE | 2024-03-06 08:16 | XR_ITS ---
Patient: DARRON HALL Facility:?[facility] Patient ID:?[id number] Site Patient ID:?[id number]. Site :?[id number] Study:?XRay-Abdomen/Pelvis 1 VIEW-03/06/2024 8:55:30 AM Ordering Physician:Reymundo Morejon Final Report: Indication: Abdominal tenderness Technique: Plain film examination of the abdomen and pelvis was performed Comparison: None Findings: Enlarged heart. Atherosclerotic changes of visible vessels. Demineralized osseous structures. Severe degenerative changes. Scoliosis. Postsurgical changes of the spine. Right hip arthroplasty. 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 Within the limitations of single-view portable supine abdomen radiography, there is no acute appearing GI finding. Impression: 1. No obvious acute GI finding by supine single-view portable abdominal radiography. 2. Incidental non GI findings as discussed above Dictated by Adrian Joseph MD @ 03/06/2024 9:13:06 AM Signed by:?Adrian Joseph MD @03/06/2024 9:13:06 AM (Electronic Signature)
[2024-03-06 08:28] LABS: Basophils Absolute Auto 0.05 K/uL (0.00-0.30); Basophils Percent Auto 0.6 % (0.0-3.0); Eosinophils Absolute Auto 0.23 K/uL (0.00-0.50); Hematocrit 33.4 % (33.0-51.0); Hemoglobin* 10.1 gm/dL (12.0-16.0); Immature Granulocytes Abs Auto 0.01 K/uL (0.00-0.30); Immature Granulocytes Pct Auto 0.1 %; Lymphocytes Percent Auto 16.5 % (20-44); Mean Corpuscular HGB Conc 30 gm/dL (32-36); Mean Corpuscular Hemoglobin 27 pg (26-34); Mean Corpuscular Volume 88 fL (80-100); Monocytes Percent Auto 15.2 % (0.0-11.0); Neutrophils Absolute Auto 4.99 K/uL (1.7-7.0); Neutrophils Percent Auto 64.6 % (42.0-72.0); Platelet Count* 276 K/uL (140-440); RDW Coefficient of Variation % 15.8 % (11.5-15.5); Red Blood Count 3.79 m/uL (4.00-5.20); Slide Review Reflex No; White Blood Count* 7.74 K/uL (4.50-11.00)
[2024-03-06] MEDS: ACETAMINOPHEN 500 MG TABLET 1000 MG PO (08:51)
[2024-03-06] MEDS: 0.9 % SODIUM CHLORIDE 500 ML 500 ML IV (08:53)
--- OUTSIDE RECORDS SUMMARY | 2024-03-06 08:54 | XMS_ITS | Continuity of Care Document ---
Author Organization [facility] Address [address] [place] [address] Phone Care Team Providers Care Terminal Operations Manager Name Role Phone Chase Snowden MD Unavailable [...] Seg Office/Outpatient Visit,Est, Mod 2017 Office/Outpatient Visit,[place], [facility] [place]/Outpatient Visit,Est, Mod 2011 Postop Followup Visit Remove Lumbar Spine Lamina, 1 Seg Pa Assist Remove Lumbar Spine Lamina, 1 Seg Office/Outpatient Visit,New, Mod 2011 X-Ray Exam Lwr Spine, Min 4 Views Advance Directives Directive Yes / No Effective Date File Name No Information Encounters Encounter Description Practice Location Reason(s) For Visit Diagnoses Date Provider Providers Copied on Encounter [facility], [address] [place] [address], [id number], [place] tel:[phone] No Information 1 Sp Stone. [facility] [place], [address] [place] [address], [id number], . [phone] [facility], [address] [place] [address], [id number], [place] tel:[phone] [facility] Arthrodesis status 1 No Information Office/Outpa tient Visit,Est, Mod [facility], [address] [place] [address], [id number], [place] tel:[phone] [facility] [place] No Information 1 No Information Referring Provider: Prakash Mccauley, [facility] [address] [place], [address]. tel:[phone] Office/Outpa tient Visit,Est, Mod [facility], [address] [place] [address], [id number], [place] tel:[phone] [facility] Arthrodesis status 0 Sp Stone. [facility] [place], [address] [place] [address], [id number], [place]. tel:[phone] Referring Provider: Prakash Mccauley, [facility] [address] [place], [address]. tel:[phone] Office/Outpa tient Visit,Est, Mod [facility], [address] [place] [address], [id number], [place] tel:[phone] [facility] Kyphosis 0 Sp Stone. [facility] [place], [address] [place] [address], [id number], [place]. tel:[phone] Referring Provider: Prakash Mccauley, [facility] [address] [place], [address]. tel:[phone] Office/Outpa tient Visit,Est, Low [facility], [address], [place], [id number], [place] tel:[phone] [facility] Arthrodesis status Sp Stone. [facility] [place], [address], [address], [id number], [place]. tel:[phone] Referring Provider: Prakash Mccauley, [facility] [address] [place], [address]. tel:[phone] Office/Outpa tient Visit,Est, Low [facility], [address], [place], [place], [id number], [place] tel:[phone] [facility] Encounter for other specified surgical aftercare Sp Stone. [facility] [place], [address] [place] [address], [address], [id number], [place]. tel:[phone] Referring Provider: Prakash Mccauley, [facility] [address] [place], [address]. tel:[phone] [facility], [address] [place] [address], [id number], [place] tel:[phone] [facility] Encounter for other specified surgical aftercare Sp Stone. [facility] [place], [address], [address], [id number], [place]. tel:[phone] Referring Provider: Prakash Mccauley, [facility] [address] [place], [address]. tel:[phone] [facility], [address], [place], [id number], [place] tel:[phone] [facility] Encounter for other specified surgical aftercare Sp Stone. [facility] [place], [address], [address], [id number], [place]. tel:[phone] Referring Provider: Prakash Mccauley, [facility] [address] [place], [address]. tel:[phone] [facility], [address], [place], [place], [id number], [place] tel:[phone] [facility] No Information Chris Meneses. [facility], [address], [place], [address], [place]. tel:[phone] Referring Provider: Prakash Mccauley, [facility] [address] [place], [address]. tel:[phone] [facility], [address], [place], [place], [id number], [place] tel:[phone] [facility] No Information Sp Stone. [facility] [place], [address] [place] [address], Ernesto [address] [place] [address], [id number], [place]. tel:[phone] Referring Provider: Prakash Mccauley, [facility] [address] [place], [address]. tel:[phone] Office/Outpa tient Visit,Est, Mod [facility], [address] [place] [address], [id number], [place] tel:[phone] [facility] Spinal stenosis, cervical region Sp Stone. [facility] [place], [address], [facility] [address], [place], [place], [id number], [place]. tel:[phone] Referring Provider: Prakash Mccauley, [facility] [address] [place], [address]. tel:[phone] Office/Outpa tient Visit,New, Mod [facility], [address], [place], [id number], [place] tel:[phone] [facility] Postlaminect jasmine kyphosisSpin al stenosis, cervical regionArthro desis status No Information Referring Provider: Prakash Mccauley, [facility] [address] [place], [address]. tel:[phone] Office/Outpa tient Visit,Est, Mod Z [facility], [address], [place], [address], [place] tel:[phone] [facility] No Information 2 No Information Referring Provider: Prakash Mccauley, [facility] [address] [place], [address]. tel:[phone] Z [facility], [address], [place], [address], [place] tel:[phone] [facility] No Information 2 No Information Referring Provider: Prakash Mccauley, [facility] [address] [place], [address]. tel:[phone] Z [facility], [address] [facility] [address], [place], [address], [place] tel:[phone] [facility] No Information No Information Referring Provider: Prakash Mccauley, [facility] [address] [place], [address]. tel:[phone] Z [facility], [address] [facility] [address], [place], [address], [place] tel:[phone] [facility] LUPUS ERYTHEMATOSU SOsteopeniaA nxietyGERDCA TARACT NOS No Information Office/Outpa tient Visit,New, Mod Z [facility], [address], [place], [address], [place] tel:[phone] [facility] No Information No Information Referring Provider: Prakash Mccauley, [facility] [address] [place], [address]. tel:[phone] Family History Family Member Type Diagnosis Age At Onset Mother Problem (finding) hypothyroidism Father Problem (finding) Cancer, unknown Mother Problem (finding) hypertension Problem (finding) Family history of prost ate cancer Payers Payer name Insurance type Covered republican ID Avaa angus(s) [facility] [id number] Medicare [facility] [id number] 1 Social History Type Description Quantity Date [...]
--- OUTSIDE RECORDS SUMMARY | 2024-03-06 08:55 | XMS_ITS | Clinical Summary ---
Author Organization [facility] Address [place], [place] [address] Care Team Providers Care Word Processing Supervisor Name Role Phone Prakash Moore MD Primary Care Provider [phone] Allergies Active Allergy Reactions Criticality Noted Date [...] once daily. Active MULTIVITS W-FE,OTHER MIN (PEDIATRIC ABMFKNGE-UNXN-XKK ORAL) Take by mouth once daily. Active [...] Description 01/26/2024 3:15 PM CDT Office Visit [facility] [address] [place] [address] Saran Arias DPMk Follow Up (Right foot ulcer, 2 week follow up) 01/26/2024 Travel 01/11/2024 1:30 PM CDT Office Visit [facility] [address] [place] [address] Saran Arias DPMk Ulcer (Follow up-right foot) 01/11/2024 Travel 01/06/2024 Telephone [facility] [address] [facility] [place] [address] Saran Arias DPMk Anticoagulation (BPA Ciprofloxacin and Warfarin) 01/06/2024 Telephone [facility] [address] [facility] [place] [address] Saran Arias DPM Foot Problem (PAINFUL MEDICATION ) 01/04/2024 1:30 PM CDT Office Visit [facility] [address] [place] [address] Saran Arias DPM Follow Up (Right ulcer check) 01/04/2024 Travel 12/31/2023 Telephone [facility] [address] [place] [address] Saran Arias DPM Questions 12/31/2023 Telephone [facility] [address] [place] [address] Saran Arias DPM Anticoagulation (BPA: CIPROFLOXACIN ) 12/31/2023 Orders Only [address] [address] Saran Arias DPM <No scans attached> 12/28/2023 2:30 PM CDT Office Visit [facility] [address] [place] [address] Saran Arias DPM Ulcer (Follow up-right foot) 12/28/2023 Travel 12/08/2023 Telephone [facility] [address] [place] [address] Saran Arias DPM Appointment (FOLLOW-UP) from Last [...] T Respiratory Rate 16 05/24/2020 3:38 PM SERVICE MECHANIC Oxygen Saturation 94% 01/26/2024 3:11 PM CDT Inhaled Oxygen Concentration - - Weight 63.5 kg (140 lb) 05/24/2020 3:38 PM SERVICE MECHANIC Height 143.5 cm (4' 8.5) 09/21/2017 4:21 PM CDT Body Mass Index 30.83 09/21/2017 4:21 PM CDT Plan of Treatment Upcoming Encounters Date Type Department Care Team (Late st Contact Info) Description 03/22/2024 2:15 PM SERVICE MECHANIC Office Visit [facility] [address] [place] [address] Saran Arias DPM [address] [place] [address] Health Maintenance Due Date Last Done Comments [...] 01/09/2024 02/12/2011 Medical Devices Implanted Type Area Channel Program Manager Device Identifier Shelf Expiration Date Model / Serial / Lot [id number] 1-4mm 30cc Medtronic Chips Canclls Freeze Dried Implanted:Qty: 1 on 09/23/2017 by Chase Snowden MD at [facility] Explanted:at [facility] (Quantity not on file) N/A: Spine Medtronic Spine/Ortho 09/30/2021 [id number] / [id number] / Plate Ti Occipital 50mm Implanted:Qty: 1 on 09/23/2017 by Chase Snowden MD at [facility] N/A: Spine 04.161.001 / / Description:PLATE TI OCCIPIT AL 50MM Screw Occipital Ti 4.5 X 8 Implanted:Qty: 1 on 09/23/2017 by Chase Snowden MD at [facility] N/A: Spine 04.601.108 / / Description:SCREW OCCIPITAL TI 4.5 X 8 Screw Occipital Ti 4.5 X 10 Implanted:Qty: 1 on 09/23/2017 by Chase Snowden MD at [facility] N/A: Spine 04.601.110 / / Description:SCREW OCCIPITAL TI 4.5 X 10 Screw Cerv Post 4.5x14mm Synapse Va Canncls Titnm Implanted:Qty: 1 on 09/23/2017 by Chase Snowden MD at [facility] N/A: Spine 04.614.214 / / Description:SCREW CERV POST 4.5X14MM SYNAPSE VA CANNCLS TITNM Mushtaq Pre-Bent [id number] Titnm - [id number] Implanted:Qty: 2 on 09/23/2017 by Chase Snowden MD at [facility] N/A: Spine J And J Depuy Spine 04.161.032 # / / Set Screw Cerv Axon - [id number] Implanted:Qty: 2 on 09/23/2017 by Chase Snowden MD at [facility] N/A: Spine J And J Depuy Spine 406.104# / / Screw Cerv Post 4x10mm Synapseva Canncls Titnm - [id number] Implanted:Qty: 1 on 09/23/2017 by Chase Snowden MD at [facility] N/A: Spine J And J Depuy Spine 04.614.110 # / / Screw Cerv Post 4x12mm Synapseva Canncls Titnm - [id number] Implanted:Qty: 2 on 09/23/2017 by Chase Snowden MD at [facility] N/A: Spine J And J Depuy Spine 04.614.112 # / / Screw Cerv Post 4.5x10mm Synapse Va Canncls Titnm - [id number] Implanted:Qty: 1 on 09/23/2017 by Chase Snowden MD at [facility] N/A: Spine J And J Depuy Spine 04.614.210 # / / Screw Cerv Post 4.5x26mm Synapse Va Canncls Titnm - [id number] Implanted:Qty: 1 on 09/23/2017 by Chase Snowden MD at [facility] N/A: Spine J And J Depuy Spine 04.614.226 # / / Screw Cerv Post 4.5x28mm Synapse Va Canncls Titnm - [id number] Implanted:Qty: 3 on 09/23/2017 by Chase Snowden MD at [facility] N/A: Spine J And J Depuy Spine 04.614.228 # / / Set Screw Cerv Synapse - [id number] Implanted:Qty: 9 on 09/23/2017 by Chase Snowden MD at [facility] N/A: Spine J And J [...] NOT Detected, N/A 12/31/2023 7:40 AM CDT [facility] IMP (carbapenem-r esistance gene) NOT Detected NOT Detected, N/A 12/31/2023 7:40 AM CDT [facility] NDM (carbapenem-r esistance gene) NOT Detected NOT Detected, N/A 12/31/2023 7:40 AM CDT [facility] OXA-48 like (carbapenem-r esistance gene) NOT Detected NOT Detected, N/A 12/31/2023 7:40 AM CDT [facility] VIM (carbapenem-r esistance gene) NOT Detected NOT Detected, N/A 12/31/2023 7:40 AM CDT [facility] Organism Pseudomonas aeruginosa 12/31/2023 7:40 AM CDT [facility] Other (Other) Non-Blood / Unknown 12/28/2023 2:44 PM CDT 12/28/2023 3:00 PM CDT [facility] - 12/31/2023 7:40 AM CDT Decreased carbapenem susceptibility likely due to changes in porin expression and/or efflux pump mechanisms. Saran Arias [facility] MICROBIOLOG[facility] [address] [place] [address], * (ABNORMAL) AEROBIC BACTERIAL CULTURE, STAIN (12/28/2023 2:44 PM CDT) CULTURE RESULT(A) 01/01/2024 10:19 AM CDT [facility] CULTURE 2+ Staphylococcus aureus 01/01/2024 10:19 AM CDT [facility] CULTURE 1+ Pseudomonas aeruginosa 01/01/2024 10:19 AM CDT [facility] Comment:See resistance-gene testing (CARBA-R) CULTURE 1+ Mixed ata present 01/01/2024 10:19 AM CDT [facility] GRAM STAIN No Epithelial cells 01/01/2024 10:19 AM CDT [facility] GRAM STAIN No RBCs 01/01/2024 10:19 AM CDT [facility] GRAM STAIN No PMNs 01/01/2024 10:19 AM CDT [facility] GRAM STAIN No organisms seen 024 10:19 AM CDT [facility] Other (Other) Non-Blood / Unknown 12/28/2023 2:44 PM CDT 12/28/2023 3:00 PM CDT Narrative [facility] - 01/01/2024 10:19 AM CDT Mixed [...] MEROPEN[facility] 8: R Saran Arias DPM MICROBIOLOGY [facility] [address] [place] [address], from Last 3 Months Additional Health Concerns Infection Onset Date Last Indicated COORDINATOR OF EVALUATION 12/28/2023 12/28/2023 Advance Directives * Full Code (Latest Code Status on File) Date Activated Date Inactivated Comments 09/23/2017 7:47 PM 09/28/2017 12:30 PM Care Teams Word Processing Supervisor Relationship Specialty Start Date End Date Prakash Moore MD [address] [place] [address] PCP - General Family Practice 09/20/17
[2024-03-06 09:01] LABS: Troponin, Point-of-Care* 0.04 ng/ml (0.01-0.04)
[2024-03-06 09:14] LABS: Albumin* 3.3 g/dL (3.3-5.0); Chloride* 102 mmol/L (96-114); Sodium* 138 mmol/L (135-149)
[2024-03-06 09:16] LABS: Creatinine* 0.6 mg/dL (0.5-1.5); Est. Creatinine Clearance* 32.23; Estimated Glomerular Filt Rate 91 ml/min
[2024-03-06 09:17] LABS: Alanine Aminotransferase* 12 U/L (4-35); Alkaline Phosphatase* 78 U/L (40-150); Anion Gap 12 mEq/L (7-15); Aspartate Amino Transferase* 27 U/L (12-35); Bilirubin Direct* 0.2 mg/dL (0.0-0.5); Bilirubin Total* 0.6 mg/dL (0.1-1.5); Blood Urea Nitrogen* 9 mg/dL (7-30); Carbon Dioxide* 24 mmol/L (20-32); Total Protein* 6.2 g/dL (6.0-8.3)
[2024-03-06 09:18] LABS: Calcium* 8.8 mg/dL (8.4-10.6); Glucose* 72 mg/dL (60-115)
[2024-03-06 09:28] LABS: INR 1.47 (0.91-1.10); Prothrombin Time 18.8 Seconds
[2024-03-06 09:30] LABS: NT Pro B Type NatriureticPept* 2160 pg/mL; Troponin I* 0.07 ng/mL (0.01-0.04)
[2024-03-06 09:31] LABS: C Reactive Protein* 16.7 mg/dL (0.5-1.0)
[2024-03-06 10:14] LABS: PCR FLU A Negative PCR FLU A (Negative); PCR FLU B Negative PCR FLU B (Negative); PCR RSV Negative PCR RSV (Negative); SARS PCR* Negative SARS-CoV-2 (Negative)
--- NOTE | 2024-03-06 10:30 | P.IMHP_ITS ---
Hospitalist- H&P: HPI History of Present Illness Date Seen: 03/06/24 Chief complaint: Weakness Narrative: Shilpi Frost is a 78 year old female with atrial fibrillation (anticoagulated on Coumadin), RA, Immunosuppression, and frail status who was brought to the Emergency Room by Ambulance for weakness and fever. She started feeling poorly last night. Long history of recurrent LE cellulitis and noted that her legs were bilaterally more painful than usual. No chest pain or dyspnea. Denies abdominal pain, has been eating less than usual as she recently had all of her upper teeth removed and hasn't yet been able to start wearing her partial 2/2 discomfort/slow healing. She's been on multiple antibiotics over the past few weeks given this procedure (Clindamycin, then a dose of Rocephin in the ER on 02/11/24, then transitioned to oral Keflex). ER Course and Findings: - temperature of 101.2, pulse 107-115, lactate wnl - sinus tachycardia on EKG, troponin 0.07 - negative COVID - no acute abnormalities on CXR - warm, painful, erythematous BLE; given h/o cellulitis and findings, Zosyn initiated Upon arrival to the floor, patient endorses BLE discomfort and feels poorly. Histories below, PCP is Teresa. Review of Systems Status of ROS: Reports: 10 or more systems reviewed and unremarkable except as noted in History and below [facility] Medical History (Updated 03/06/24 @ 13:14 by Bree Snyder MD) Elevated troponin ?R79.89 - Other specified abnormal findings of blood chemistry (ICD-10) Essential (primary) hypertension ?I10 - Essential (primary) hypertension (ICD-10) POLST (Physician Orders for Life-Sustaining Treatment) ?Z78.9 - Other specified health status (ICD-10) Systemic lupus erythematosus ?M32.9 - Systemic lupus erythematosus, unspecified (ICD-10) Heart failure ?I50.9 - Heart failure, unspecified (ICD-10) Frailty syndrome in geriatric patient ?R54 - Age-related physical debility (ICD-10) Cognitive impairment ?R41.89 - Other symptoms and signs involving cognitive functions and awareness (ICD-10) Heart failure ?I50.9 - Heart failure, unspecified (ICD-10) DVT (deep venous thrombosis) ?I82.409 - Acute embolism and thrombosis of unspecified deep veins of unspecified lower extremity (ICD-10) 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, unspecified (ICD-10) Anemia due to gastrointestinal blood loss ?D50.0 - Iron deficiency anemia secondary to blood loss (chronic) (ICD-10) Anemia of chronic disease ?D63.8 - Anemia in other chronic diseases classified elsewhere (ICD-10) Atrial fibrillation with rapid ventricular response ?I48.91 - Unspecified atrial fibrillation (ICD-10) Atrial fibrillation ?I48.91 - Unspecified atrial fibrillation (ICD-10) Hypothyroidism ?E03.9 - Hypothyroidism, unspecified (ICD-10) Left leg cellulitis ?L03.116 - Cellulitis of left lower limb (ICD-10) Psoriasis ?L40.9 - Psoriasis, unspecified (ICD-10) Anemia ?D64.9 - Anemia, unspecified (ICD-10) Yeast dermatitis ?B37.2 - Candidiasis of skin and nail (ICD-10) Environmental allergies ?Z91.09 - Other allergy status, other than to drugs and biological substances (ICD-10) Osteoarthritis of left hip ?M16.12 - Unilateral primary osteoarthritis, left hip (ICD-10) Osteoarthritis of right knee ?M17.11 - Unilateral primary osteoarthritis, right knee (ICD-10) Osteoarthritis of right shoulder ?M19.011 - Primary osteoarthritis, right shoulder (ICD-10) Urethral caruncle ?N36.2 - Urethral caruncle (ICD-10) Weakness ?R53.1 - Weakness (ICD-10) Unsteady gait ?R26.81 - Unsteadiness on feet (ICD-10) Tubular adenoma ?D36.9 - Benign neoplasm, unspecified site (ICD-10) Spinal stenosis ?M48.00 - Spinal stenosis, site unspecified (ICD-10) 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 (ICD-10) Seasonal allergic rhinitis (01/27/12) ?J30.2 - Other seasonal allergic rhinitis (ICD-10) Scoliosis (01/27/12) ?M41.9 - Scoliosis, unspecified (ICD-10) Right shoulder pain ?M25.511 - Pain in right shoulder (ICD-10) Pyelonephritis ?N12 - Tubulo-interstitial nephritis, not specified as acute or chronic (ICD- 10) Positive colorectal cancer screening using DNA-based stool test ?R19.5 - Other fecal abnormalities (ICD-10) Physician Orders for Life-Sustaining Treatment (09/28/17) ?Z78.9 - Other specified health status (ICD-10) Physical deconditioning ?R53.81 - Other malaise (ICD-10) Physical debility ?R53.81 - Other malaise (ICD-10) Peripheral edema (05/12/10) ?R60.9 - Edema, unspecified (ICD-10) Osteopenia (05/26/11) ?M85.80 - Other specified disorders of bone density and structure, unspecified site (ICD-10) Nonspecific colitis ?K52.9 - Noninfective gastroenteritis and colitis, unspecified (ICD-10) Long-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 - Immunodeficiency due to drugs (ICD-10) ?T38.0X5A - Adverse effect of glucocorticoids and synthetic analogues, initial encounter (ICD-10) ?Z79.52 - extermination supervisor (current) use of systemic steroids (ICD-10) Hypokalemia ?E87.6 - Hypokalemia (ICD-10) Hypertension (08/16/12) ?I10 - Essential (primary) hypertension (ICD-10) Hyperlipidemia ?E78.5 - Hyperlipidemia, unspecified (ICD-10) High C-reactive protein ?R79.82 - Elevated C-reactive protein (CRP) (ICD-10) Health care directive on file (07/05/15) ?Z78.9 - Other specified health status (ICD-10) Gastroesophageal reflux disease (04/11/10) ?K21.9 - Gastro-esophageal reflux disease without esophagitis (ICD-10) Dilated cardiomyopathy (05/12/10) ?I42.0 - Dilated cardiomyopathy (ICD-10) Dilated bile duct ?K83.8 - Other specified diseases of biliary tract (ICD-10) Depression (08/16/12) ?F32.A - Depression, unspecified (ICD-10) Constipation ?K59.00 - Constipation, unspecified (ICD-10) Colitis ?K52.9 - Noninfective gastroenteritis and colitis, unspecified (ICD-10) Chronic pain syndrome ?G89.4 - Chronic pain syndrome (ICD-10) Chronic pain ?G89.29 - Other chronic pain (ICD-10) Cellulitis ?L03.90 - Cellulitis, unspecified (ICD-10) Anxiety (04/11/10) ?F41.9 - Anxiety disorder, unspecified (ICD-10) Abnormal liver function tests ?R79.89 - Other specified abnormal findings of blood chemistry (ICD-10) Long-term (current) use of anticoagulants, INR goal 2.0-3.0 ?Z79.01 - extermination supervisor (current) use of anticoagulants (ICD-10) Knee osteoarthritis ?M17.10 - Unilateral primary osteoarthritis, unspecified knee (ICD-10) POLST (Physician Orders for Life-Sustaining Treatment) ?Z78.9 - Other specified health status (ICD-10) Irritation of right ear ?H93.8X1 - Other specified disorders of right ear (ICD-10) History of pulmonary embolism (2017) ?Z86.711 - Personal history of pulmonary embolism (ICD-10) History of peptic ulcer ?Z87.11 - Personal history of peptic ulcer disease (ICD-10) History of deep vein thrombosis (DVT) of lower extremity (2016) ?Z86.718 - Personal history of other venous thrombosis and embolism (ICD-10) Head injury with loss of consciousness ?S06.9X9A - Unspecified intracranial injury with loss of consciousness of unspecified duration, initial encounter (ICD-10) Surgical History S/P foot surgery, right (08/28/14) ?Z98.890 - Other specified postprocedural states (ICD-10) 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) ?Z96.619 - Presence of unspecified artificial shoulder joint (ICD-10) Status post lumbar spinal fusion (04/11/10) ?Z98.1 - Arthrodesis status (ICD-10) Status post cervical spinal arthrodesis (09/2017) ?Z98.1 - Arthrodesis status (ICD-10) History of total hip replacement (05/12/10) ?Z96.649 - Presence of unspecified artificial hip joint (ICD-10) History of left knee replacement (05/12/10) ?Z96.652 - Presence of left artificial knee joint (ICD-10) History of hysterectomy (04/11/10) ?Z90.710 - Acquired absence of both cervix and uterus (ICD-10) History of colonoscopy (05/18/19) ?Z98.890 - Other specified postprocedural states (ICD-10) History of cholecystectomy (05/12/10) ?Z90.49 - Acquired absence of other specified parts of digestive tract (ICD- 10) Family History Brother Coronary artery disease Father Cancer Social History Narrative: Patient lives at [facility], independent living at [facility]. She is . 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 Her daughter, Giselle, lives in the area. Code status is DNR/DNI. Healthcare power of staff attorney is her daughter Giselle from [place]. She quit smoking in 1996. Has been chewing nicotine gum since then. She says she chews pieces constantly throughout the day and is never without a piece in her mouth. She does not drink alcohol. What is your current living situation?: I presently have a place to live Problems where you live: no known problems Problems where you live details: none In the past 12 months, utilities in danger of being shut off: no In past 12 months, lack of transportation kept you from medical appts, meetings, work, or getting things needed for daily living: no In the past 12 mos, have been you worried that your food would run out before you had money to buy more?: never true In the past 12 mos, the food you bought just didn't last and you didn't have money to buy more?: never true Highest level of school completed/degree received: Master's degree Smoking Status: Former smoker Do you use any of these nicotine containing products: None Nicotine containing products detail: gum Second hand tobacco smoke exposure: No How often do you have a drink containing alcohol: never How often do you have six or more drinks on one occasion: Never AUDIT-C Alcohol total score: 0 Non-prescribed substance use: denies use Caffeine: Yes (coffee 12 cups) How often does anyone, including family, friends and others, physically hurt you : never How often does anyone, including family, friends and others, insult or talk down to you: never How often does anyone, including family, friends and others, threaten you with harm: never How often does anyone, including family, friends and others, scream or curse at you: never Little interest or pleasure in doing things: several days Feeling down, depressed, or hopeless: more than half the days service: No Meds Home Medications and Allergies Home Medications ?Medication ?Instructions ?Recorded ?Confirmed ?Type melatonin 3 mg capsule 3 mg PO HS PRN 01/13/22 03/06/24 History levothyroxine 25 mcg tablet 25 mcg PO DAILY 06/05/23 03/06/24 History loratadine 10 mg tablet 10 mg PO DAILY allergic symptoms 06/05/23 03/06/24 History clobetasol 0.05 % lotion 1 applic topical BID PRN 07/13/23 03/06/24 History estradiol 0.01% (0.1 mg/gram) 0.5 g vaginal QDAY 10/19/23 03/06/24 History vaginal cream clindamycin HCl 300 mg capsule 300 mg PO TID 02/11/24 03/06/24 History cephalexin 500 mg capsule 500 mg PO 3XD 03/06/24 03/06/24 History magnesium oxide 400 mg (241.3 mg 400 mg PO DAILY 03/06/24 03/06/24 History magnesium) tablet warfarin 1 mg tablet 1 mg PO DAILY 03/06/24 03/06/24 History Allergies Allergy/AdvReac Type Severity Reaction Status Date / Time amitriptyline Allergy Severe disorientat Verified 11/29/23 12:40 ion penicillin V Allergy Severe upset Verified 11/29/23 12:40 stomach and rash perphenazine Allergy Severe disorientat Verified 11/29/23 12:40 ion adhesive Allergy Unknown Unknown Verified 11/29/23 12:40 bee venom protein (honey bee) AdvReac Severe Anaphylaxis Verified 11/29/23 12:40 latex AdvReac Severe Rash Verified 11/29/23 12:40 amoxicillin AdvReac Intermediate Diarrhea Verified 11/29/23 12:40 Tricyclic antidepressant Allergy Severe disorientat Uncoded 11/29/23 12:40 ion Bee venom Allergy Mild swells and Uncoded 11/29/23 12:40 area turns red Sulfa drugs Allergy Unknown Unknown Uncoded 07/22/24 12:40 Clavulanate AdvReac Intermediate Diarrhea Uncoded 11/29/23 12:40 Exam Narrative: Exam Narrative: GEN: Laying in bed, appears chronically ill HEENT: Missing all upper teeth without evidence of acute infection, edema of bilateral lower eyelids CV: RRR, harsh systolic murmur without radiation or concerning features R: LCTA bilaterally without concerning wheezing Ab: No distention Ext: Bright red erythematous BLEs, warm, significant ttp, no edema. Ulnar deviation of BUEs, lateral deviation of BLEs. Unable to palpate dorsalis pedis pulses 2/2 patient discomfort Skin: Scattered bruising of extremities Neuro: No focal deficits or resting tremor Psych: Sleepy, awakens to voice, no agitation Const: Vital Signs, click to edit/add: Vital Signs - 24 hr 03/06/24 07:57 03/06/24 08:25 03/06/24 08:28 Temperature 100.0 F H 101.2 F H Pulse Rate 113 H Pulse Rate [Left] 115 H Pulse Rate [Pulse Oximeter] 114 H Respiratory Rate 20 16 Blood Pressure 159/77 H Blood Pressure [Le ft Arm] 159/77 H Blood Pressure [Ri ght Upper Arm] 140/87 H Pulse Oximetry 93 94 95 Oxygen Delivery Me od Room Air Room Air 03/06/24 08:45 03/06/24 09:02 Temperature Pulse Rate 107 H 107 H Pulse Rate [Left] Pulse Rate [Pulse Oximeter] Respiratory Rate 16 Blood Pressure 145/59 H 144/68 H Blood Pressure [Le ft Arm] Blood Pressure [Ri ght Upper Arm] Pulse Oximetry 94 90 [facility]: Result Labs Labs: Short CBC 03/06/24 Range/Units 08:20 WBC 7.74 (4.50-11.00) K/uL Hgb 10.1 L (12.0-16.0) gm/dL Hct 33.4 (33.0-51.0) % Plt Count 276 (140-440) K/uL BMP 03/06/24 08:45 Sodium 138 Potassium 3.0 L Chloride 102 Carbon Dioxide 24 BUN 9 Creatinine 0.6 Glucose 72 Calcium 8.8 Cardiac Enzymes 03/06/24 Range/Units 08:45 Troponin I 0.07 H* (0.01-0.04) ng/mL Liver Function 03/06/24 Range/Units 08:45 Total Bilirubin 0.6 (0.1-1.5) mg/dL Direct Bilirubin 0.2 (0.0-0.5) mg/dL AST 27 (12-35) U/L ALT 12 (4-35) U/L Alkaline Phosphatase 78 (40-150) U/L Albumin 3.3 (3.3-5.0) g/dL Assessment and Plan Assessment and plan (1) Sepsis: Problem comment: - as evidenced by temperature 101.2, HR 107, - while BLE edema could represent PVD, symptoms of warmth and significant erythema + pain concerning for infectious process - Zosyn and Vancomycin (03/06/24) - has no desire for aggressive management or transfer, goals of care reviewed with Allida and daughter Status: Acute (2) Cellulitis: Problem comment: - source of symptoms above, bilateral so also likely has an element of PVD contributing Status: Acute (3) Chronic anticoagulation: Problem comment: - Warfarin for a fib, also has h/o DVT - pharmacy referral to manage Status: Acute (4) Immunosuppression: Problem comment: - chronic Prednisone and Hydroxychloroquine - will treat with 3 doses of IV steroid upon admission 03/04 given acute illness Status: Acute (5) Essential (primary) hypertension: Problem comment: - blood pressure upon admission is on the lower side, holding Losartan, continue Metoprolol with holding parameters Status: Acute (6) Elevated troponin: Problem comment: - mildly elevated (0.07 ->0.10) on admission - no chest pain or dyspnea - defers TTE or further workup given goals of care Status: Acute Plan - per above - daughter Giselle updated at bedside, questions answered
[2024-03-06 10:39] LABS: Appearance Urine Clear (Clear); Bilirubin Urine 1+ (Negative); Blood Urine Negative (Negative); Color Urine Yellow (Yellow); Glucose Urine Negative (Negative); Ketones Urine 3+ (Negative); Leukocyte Esterase Urine Negative (Negative); Nitrite Urine Negative (Negative); Protein Urine Negative (Negative); Specific Gravity Urine 1.015 (1.000-1.030); Urobilinogen Urine 0.2 (0.2-1.0); pH Urine 6.5 (5.0-8.5)
[2024-03-06] MEDS: PIPERACILLIN/TAZOBACTAM 4.5 GM in 0.9 % SODIUM CHLORIDE Mini-bag 100 ML IVPB (10:46)
[2024-03-06 11:04] LABS: RBC Urine 0-2 (0-2); WBC Urine 0-2 (0-5)
[2024-03-06 11:19] LABS: Lactate* 0.8 mmol/L (0.5-1.9)
[2024-03-06] MEDS: MORPHINE 4 MG/ML INJ 2 MG IVP ×2 (12:20→16:05)
[2024-03-06] MEDS: HYDROCORTISONE SOD SUCCINATE 50 MG/ML inj 100 MG IVP (12:22)
[2024-03-06] MEDS: ONDANSETRON ODT 4 MG TAB PO ×3 (12:22→22:35)
[2024-03-06] MEDS: HYDROCODONE-ACETAMIN 5-325 MG 1 TAB PO (12:22)
[2024-03-06] MEDS: VANCOMYCIN 1 GM/200 ML 1 GM/200 ML PIGGYBACK IVPB (14:34)
[2024-03-06] MEDS: POTASSIUM CHLORIDE 10 MEQ CAPSULE ER 40 MEQ PO (16:00)
[2024-03-06] MEDS: PIPERACILLIN/TAZOBACTAM 2.25 GM in 0.9 % SODIUM CHLORIDE Mini-bag 100 ML IVPB ×2 (17:17→22:31)
[2024-03-06] MEDS: WARFARIN 2 MG TABLET 1 MG PO (17:57)
[2024-03-06] MEDS: LACTOBACILLUS ACIDOPHILUS 1 TABLET 1 TAB PO (17:57)
[2024-03-06] MEDS: HYDROCORTISONE SOD SUCCINATE 50 MG/ML inj IVP (19:02)
[2024-03-06] MEDS: SODIUM CHLORIDE 0.9 % (FLUSH) 10 ML SYRINGE 5 ML IVF ×2 (19:04→22:22)
--- NOTE | 2024-03-06 19:31 | PC.NURSE ---
shift note: pt vss stable. pt IV x2 patent. LS clr. Pt medicated x2 for generalized pain with relief. Pt tried to sit in recliner with assist of 2 but was too weak at this time. pt was repositioned for comfort. bilat l/e red and hot to touch. Lt calf glistening with moisture. faint PP bilat.
[2024-03-06] MEDS: GABAPENTIN 600 MG TABLET 1200 MG PO (22:22)
[2024-03-07] VITALS (9 sets, daily range): BP systolic 117–139; BP diastolic 55–74; PULSE 73–93; RESP 16–20; TEMP 36.5–36.9; O2SAT 92–97
[2024-03-07] MEDS: HYDROCORTISONE SOD SUCCINATE 50 MG/ML inj IVP ×2 (00:33→06:30)
[2024-03-07] MEDS: MORPHINE 4 MG/ML INJ 2 MG IVP ×2 (00:34→03:38)
[2024-03-07] MEDS: SODIUM CHLORIDE 0.9 % (FLUSH) 10 ML SYRINGE 5 ML IVF ×7 (00:37→21:42)
[2024-03-07] MEDS: ONDANSETRON ODT 4 MG TAB PO ×4 (05:09→23:34)
[2024-03-07] MEDS: PIPERACILLIN/TAZOBACTAM 2.25 GM in 0.9 % SODIUM CHLORIDE Mini-bag 100 ML IVPB ×4 (05:09→23:33)
[2024-03-07 06:29] LABS: Basophils Absolute Auto 0.01 K/uL (0.00-0.30); Basophils Percent Auto 0.2 % (0.0-3.0); Hematocrit 31.8 % (33.0-51.0); Hemoglobin* 9.4 gm/dL (12.0-16.0); Immature Granulocytes Abs Auto 0.01 K/uL (0.00-0.30); Immature Granulocytes Pct Auto 0.2 %; Lymphocytes Percent Auto 8.5 % (20-44); Mean Corpuscular HGB Conc 30 gm/dL (32-36); Mean Corpuscular Hemoglobin 27 pg (26-34); Mean Corpuscular Volume 91 fL (80-100); Neutrophils Percent Auto 87.1 % (42.0-72.0); Platelet Count* 299 K/uL (140-440); RDW Coefficient of Variation % 15.8 % (11.5-15.5); White Blood Count* 5.53 K/uL (4.50-11.00)
[2024-03-07 06:32] LABS: Slide Review Reflex No
--- NOTE | 2024-03-07 06:38 | PC.NURSE ---
Pt alert and oriented to self and place. Afebrile. Pt reports 6-8/10 pain in BLE, pain managed with PRN medication. Pt?s orellana is patent and draining. Pt?s BLE extremities are red and warm to touch, outlined reddened areas. Pt was turned and repositioned as pt allowed throughout night.
[2024-03-07 06:45] LABS: INR 1.56 (0.91-1.10); Prothrombin Time 19.8 Seconds
[2024-03-07 06:55] LABS: Albumin* 3.1 g/dL (3.3-5.0); Chloride* 108 mmol/L (96-114); Potassium* 3.4 mmol/L (3.6-5.1); Sodium* 142 mmol/L (135-149)
[2024-03-07 06:57] LABS: Creatinine* 0.7 mg/dL (0.5-1.5); Est. Creatinine Clearance* 40.22; Estimated Glomerular Filt Rate 87 ml/min
[2024-03-07 06:58] LABS: Alanine Aminotransferase* 12 U/L (4-35); Alkaline Phosphatase* 86 U/L (40-150); Anion Gap 17 mEq/L (7-15); Aspartate Amino Transferase* 31 U/L (12-35); Bilirubin Total* 0.3 mg/dL (0.1-1.5); Blood Urea Nitrogen* 14 mg/dL (7-30); Carbon Dioxide* 17 mmol/L (20-32); Glucose* 90 mg/dL (60-115); Total Protein* 5.9 g/dL (6.0-8.3)
[2024-03-07 06:59] LABS: Calcium* 8.1 mg/dL (8.4-10.6)
[2024-03-07] MEDS: predniSONE 10 MG TABLET PO (08:33)
[2024-03-07] MEDS: GABAPENTIN 600 MG TABLET 1200 MG PO ×2 (08:33→21:41)
[2024-03-07] MEDS: HYDROCODONE-ACETAMIN 5-325 MG 1 TAB PO (08:33)
[2024-03-07] MEDS: OMEPRAZOLE 20 MG CAPSULE DR PO (08:33)
[2024-03-07] MEDS: LACTOBACILLUS ACIDOPHILUS 1 TABLET 1 TAB PO ×2 (08:33→17:47)
[2024-03-07] MEDS: POTASSIUM CHLORIDE 10 MEQ CAPSULE ER PO ×2 (08:33→17:47)
[2024-03-07] MEDS: METOPROLOL SUCCINATE (XL) 25 MG TAB PO (08:34)
[2024-03-07] MEDS: LEVOTHYROXINE 25 MCG TABLET PO (08:34)
[2024-03-07] MEDS: buPROPion XL 150 MG TABLET PO (08:34)
--- NOTE | 2024-03-07 11:14 | REH.PT ---
Attempted PT eval this am. Pt willing to try sitting up with magnetic tape typewriter operator. Pt needing Max assist to transfer supine>sit at EOB. Unable to maintain sitting balance once sitting up. Falling posteriorly while seated. Pt keeping eyes closed and keeps on repeating I should be awake. Recommend nursing staff use a ceiling lift for transfers a this time. Will re-attempt PT eval tomorrow if appropriate.
--- NOTE | 2024-03-07 12:00 | P.IMPN_ITS ---
Progress Note: A&P Assessment and plan (1) Sepsis: Problem details: - as evidenced by temperature 101.2, HR 107 - while BLE edema could represent PVD, symptoms of warmth and significant erythema + pain concerning for infectious process - Zosyn and Vancomycin (03/06/24) - has no desire for aggressive management or transfer, goals of care reviewed with Shilpi and daughter (not yet ready for formal comfort cares on 03/07) Status: Acute (2) Cellulitis: Problem details: - source of symptoms above, bilateral so also likely has an element of PVD contributing Status: Acute (3) Chronic anticoagulation: Problem details: - Warfarin for a fib, also has h/o DVT - pharmacy referral to manage Status: Acute (4) Immunosuppression: Problem details: - chronic Prednisone and Hydroxychloroquine - will treat with 3 doses of IV steroid upon admission 03/06 given acute illness Status: Acute (5) Essential (primary) hypertension: Problem details: - blood pressure upon admission is on the lower side, holding Losartan, continue Metoprolol with holding parameters Status: Acute (6) Elevated troponin: Problem details: - mildly elevated (0.07 ->0.10) on admission - no chest pain or dyspnea - defers TTE or further workup given goals of care Status: Acute Plan - per above - therapies to help with d/c planning, continue to assess desire for aggressive management vs hospice Subjective Date Seen: 03/07/24 Interval history: Axel cabrera was admitted to the hospital yesterday for concerns of recurrent cellulitis of the lower extremities. She was febrile with significant lower extremity pain, had been on multiple antibiotics over the past 6 weeks (dental extraction, recurrent cellulitis). Vancomycin and Zosyn initiated upon admission. T-max on admission 101.2, afebrile overnight. Labs stable and blood culture exhibits no growth to date. Requiring prn Morphine for pain management. This morning, patient continues to endorse discomfort and weakness. She was unable to participate in therapies. We discussed plan of care; she does not yet think she is ready for comfort- focused measures, although family would be supportive of this decision. Exam Narrative: Exam Narrative: GEN: Shilpi is laying in bed and appears ill. Awakens to voice and answering questions appropriately HEENT: Edema of bilateral lower eyelids, no scleral icterus CV: RRR, harsh systolic murmur noted at LSB R: No wheezing, no tachypnea, air movement adequate Ab: No distention Ext: Ulnar deviation of BUEs, lateral deviation of BLEs. BLEs are warm with significant ttp, no edema Skin: Bright red erythematous BLEs, scattered bruising of extremities Neuro: No focal deficits, no resting tremor Psych: No agitation Const: Vital Signs, click to edit/add: Vital Signs - 24 hr 03/06/24 12:04 03/06/24 15:00 03/06/24 15:00 Temperature 98.6 F 99.3 F Pulse Rate Pulse Rate [Pulse Oximeter] 104 H 83 83 Respiratory Rate 18 22 18 Blood Pressure [Le ft Arm] 104/55 L 103/59 L Pulse Oximetry 92 [facility] Room Air 03/06/24 15:00 03/06/24 18:23 03/06/24 19:58 Temperature 97.8 F Pulse Rate 84 Pulse Rate [Pulse Oximeter] 76 Respiratory Rate 18 20 Blood Pressure [Le ft Arm] 114/58 L Pulse Oximetry 92 93 [facility] Room Air 03/07/24 00:32 03/07/24 00:32 03/07/24 00:32 Temperature 97.7 F Pulse Rate 73 Pulse Rate [Pulse Oximeter] 82 Respiratory Rate 18 18 Blood Pressure [Le ft Arm] 120/55 L Pulse Oximetry 93 93 Oxygen Delivery [facility] Room Air Room Air 03/07/24 03:45 03/07/24 07:30 03/07/24 07:30 Temperature 97.8 F 98.5 F Pulse Rate Pulse Rate [Pulse Oximeter] 86 93 Respiratory Rate 18 18 18 Blood Pressure [Le ft Arm] 117/55 L 137/62 Pulse Oximetry 93 97 97 [facility] Room Air Room Air 03/07/24 07:35 03/07/24 11:11 Temperature 98.4 F Pulse Rate 79 Pulse Rate [Pulse Oximeter] 73 Respiratory Rate 16 Blood Pressure [Le ft Arm] 131/57 L Pulse Oximetry 96 [facility] Labs Labs: Laboratory Results - last 24 hr 03/06/24 03/07/24 03/07/24 11:12 04:00 05:56 WBC 5.53 RBC 3.50 L Hgb 9.4 L Hct 31.8 L MCV 91 MCH 27 MCHC 30 L RDW Coeff of Rolo 15.8 H Plt Count 299 Neut % (Auto) 87.1 H Lymph % (Auto) 8.5 L [place] % (Auto) 4.0 Eos % (Auto) 0.0 Baso % (Auto) 0.2 Neut # (Auto) 4.80 Lymph # (Auto) 0.50 L [place] # (Auto) 0.20 Eos # (Auto) 0.00 Baso # (Auto) 0.01 Abs Immat Gran (auto) 0.01 Imm/Tot Granulo (auto) 0.2 INR 1.56 H Sodium 142 Potassium 3.4 L Chloride 108 Carbon Dioxide 17 L Anion Gap 17 H BUN 14 Creatinine 0.7 Estimated Creat Clear 40.22 Estimated GFR 87 Glucose 90 Calcium 8.1 L Total Bilirubin 0.3 AST 31 ALT 12 Alkaline Phosphatase 86 Troponin I 0.10 H* Total Protein 5.9 L Albumin 3.1 L
[2024-03-07] MEDS: VANCOMYCIN 1 GM/200 ML 1 GM/200 ML PIGGYBACK IVPB (14:10)
--- NOTE | 2024-03-07 15:41 | REH.OT ---
OT: Chart reviewed. Therapist attempted initial evaluation with patient;however, unable to complete due to MD needing to discuss next steps with patient/daughter.
--- NOTE | 2024-03-07 16:13 | PC.SOCIAL ---
Discharge planning: ceramic worker attempted to meet with pt today. Pt's daughter was not available. ceramic worker did talk to Tenisha Arnold on the [facility] campus where the pt lives and she stated that she would have availability for the pt in [facility] if pt is willing to go there after discharge. Pt has not been able to participate in therapies as of yet during this hospital stay. The provider on duty did talk to the pt about hospice/comfort cares and the pt is not ready to pursue hospice or comfort cares at this time. Social work to follow-up as needed.
[2024-03-07] MEDS: WARFARIN 3 MG TABLET 1.5 MG PO (17:46)
--- NOTE | 2024-03-07 18:24 | PC.NURSE ---
End of Shift Note: I have only cared for patient for 4 hours. No complaints of pain. Did get her to eat some mom with brown sugar and carrot cake. Took her medication whole. will continue to monitor until next shift arrives.
[2024-03-08] VITALS (8 sets, daily range): BP systolic 108–134; BP diastolic 46–75; PULSE 77–93; RESP 16–20; TEMP 36.7–37.3; O2SAT 92–94
[2024-03-08] MEDS: ONDANSETRON ODT 4 MG TAB PO ×3 (05:49→16:47)
[2024-03-08 06:46] LABS: Basophils Absolute Auto 0.03 K/uL (0.00-0.30); Basophils Percent Auto 0.4 % (0.0-3.0); Eosinophils Absolute Auto 0.02 K/uL (0.00-0.50); Eosinophils Percent Auto 0.3 % (0.0-7.0); Hematocrit 29.5 % (33.0-51.0); Lymphocytes Percent Auto 19.9 % (20-44); Mean Corpuscular HGB Conc 31 gm/dL (32-36); Mean Corpuscular Hemoglobin 27 pg (26-34); Mean Corpuscular Volume 89 fL (80-100); Monocytes Percent Auto 11.7 % (0.0-11.0); Neutrophils Absolute Auto 4.98 K/uL (1.7-7.0); Neutrophils Percent Auto 67.7 % (42.0-72.0); Platelet Count* 317 K/uL (140-440); Red Blood Count 3.32 m/uL (4.00-5.20); White Blood Count* 7.35 K/uL (4.50-11.00)
[2024-03-08] MEDS: PIPERACILLIN/TAZOBACTAM 2.25 GM in 0.9 % SODIUM CHLORIDE Mini-bag 100 ML IVPB ×3 (06:48→16:47)
[2024-03-08 06:53] LABS: Slide Review Reflex No
[2024-03-08 06:57] LABS: Chloride* 107 mmol/L (96-114); Sodium* 141 mmol/L (135-149)
[2024-03-08 07:00] LABS: Anion Gap 9 mEq/L (7-15); Blood Urea Nitrogen* 23 mg/dL (7-30); Carbon Dioxide* 25 mmol/L (20-32); Creatinine* 0.8 mg/dL (0.5-1.5); Estimated Glomerular Filt Rate 74 ml/min
[2024-03-08 07:01] LABS: Glucose* 98 mg/dL (60-115)
[2024-03-08 07:20] LABS: Prothrombin Time 23.1 Seconds
--- NOTE | 2024-03-08 07:25 | PC.NURSE ---
Pt alert and oriented to self and place. Afebrile. Pt denies pain, chest pain, SOB and N/V. Pt?s orellana is patent and draining. Pt was turned and repositioned as pt allowed throughout night. Pt?s BLE extremities are light red and warm, redness is receding from outline. Pt's right forearm IV infiltrated, IV taken out catheter intact, New IV inserted in right antecubital by RN Angie. New right arm antecubital infiltrated in morning and IV taken out catheter intact. New IV inserted by anesthesiology in left forearm. ??
[2024-03-08] MEDS: LEVOTHYROXINE 25 MCG TABLET PO (09:08)
[2024-03-08] MEDS: POTASSIUM CHLORIDE 10 MEQ CAPSULE ER PO ×2 (09:09→17:53)
[2024-03-08] MEDS: predniSONE 10 MG TABLET PO (09:09)
[2024-03-08] MEDS: OMEPRAZOLE 20 MG CAPSULE DR PO (09:09)
[2024-03-08] MEDS: HYDROCODONE-ACETAMIN 5-325 MG 1 TAB PO (09:10)
[2024-03-08] MEDS: METOPROLOL SUCCINATE (XL) 25 MG TAB PO (09:10)
[2024-03-08] MEDS: GABAPENTIN 600 MG TABLET 1200 MG PO ×2 (09:11→20:53)
[2024-03-08] MEDS: buPROPion XL 150 MG TABLET PO (09:11)
[2024-03-08] MEDS: POTASSIUM CHLORIDE 10 MEQ CAPSULE ER 30 MEQ PO (09:13)
--- NOTE | 2024-03-08 10:25 | PC.SOCIAL ---
Addendum entered and electronically signed by GERA Treadwell 03/09/24 14:48: Discharge planning/late entry: power lineworker spoke to pt's daughter, Giselle, this afternoon over the phone and updated her about the possibility of pt being able to go to [facility] tomorrow, but that this worker would have to verify that with doctor in morning rounds. Pt's daughter stated that she was fine with hearing for certain in the morning. power lineworker also spoke to pt's daughter about transportation to [facility] and pt's daughter requested that pt go by non-emergent EMS per the family's preference and that they were willing to pay the fee for the transportation. power lineworker explained that it would cost $100.00($85.00 for pick-up and then $5.00 a mile/[facility] is three miles from the hospital/[id number]). Pt's daughter was okay with this cost and this worker completed the wheelchair transportation cost form with verbal consent from the pt's daughter, Giselle. power lineworker will connect with the pt and her daughter in the morning after speaking with the provider on duty in morning rounds. Social work to follow-up as needed. Addendum entered and electronically signed by GERA Treadwell 03/08/24 16:19: Discharge planning: [facility] can accept the pt on , but it is unknown if the pt will be ready to discharge tomorrow until morning rounds. power lineworker talked to Alysia about this and will update her after rounds tomorrow, which she was fine with. Social work to follow-up as needed. Addendum entered and electronically signed by GERA Treadwell 03/08/24 15:25: Discharge planning: power lineworker sent a referral to Alysia at [facility] via secure email, as they have short-term rehab female openings. Social work to follow-up as needed. Original Note: Discharge planning: power lineworker met with pt and her daughter, Giselle, today to discuss discharge planning. Pt and her daughter stated that they would really like the pt to do a rehab stay at a SNF with her Medicare coverage, if possible, after discharge. Pt stated that she does not want to go to [facility] at all. power lineworker explained that it was important for the pt to participate in therapies when they come today because the residential facilities will want to see that she is actively participating in therapies and Medicare will not cover short-term rehab if the patient is not actively participating in therapies. Pt and her daughter were provided with a copy of the [facility] list for reference. Pt and her daughter stated that [facility] would be their first choice and [facility] in [place] would be their second choice for placement. Social work to follow-up as needed.
--- NOTE | 2024-03-08 10:27 | PM.IMPN1 ---
Progress Note: A&P Assessment and plan (1) Sepsis: Problem details: - as evidenced by temperature 101.2, HR 107 - while BLE edema could represent PVD, symptoms of warmth and significant erythema + pain concerning for infectious process - Zosyn and Vancomycin (03/06/24) - has no desire for aggressive management or transfer, goals of care reviewed with Shilpi and daughter (not yet ready for formal comfort cares on 03/07) 03/08 - remains afebrile. MRSA negative. BC NGTD. Vancomycin discontinued. Continue IV Zosyn with plan to transition to oral prior to discharge Status: Resolved (2) Cellulitis: Problem details: - source of symptoms above, bilateral so also likely has an element of PVD contributing. Immunosuppressed - acute, recurrent. Has been on multiple oral antibiotics over the last several weeks/months 03/08 - continue Zosyn, d/c Vanco Status: Acute (3) Chronic anticoagulation: Problem details: - Warfarin for a fib, also has h/o DVT - pharmacy referral to manage Status: Acute (4) Immunosuppression: Problem details: - chronic Prednisone and Hydroxychloroquine - continued - treated with 3 doses of IV steroid upon admission 03/06 given acute illness Status: Acute (5) Essential (primary) hypertension: Problem details: - blood pressure upon admission is on the lower side, holding Losartan, continue Metoprolol with holding parameters Status: Acute (6) Elevated troponin: Problem details: - mildly elevated (0.07 ->0.10) on admission - no chest pain or dyspnea - defers TTE or further workup given goals of care Status: Acute (7) Anemia of chronic disease: Problem details: Hemoglobin 9.0, baseline 10.2-11.8 over past year. No acute evidence of bleed, continue to monitor Status: Chronic (8) Hypokalemia: Problem details: Potassium 3.0, 40 mEq this morning, continue home dosing, continue to monitor Status: Acute Plan Goal to continue to work with therapies. director of social services assisting with rehab placement (currently [facility]). Continue IV antibiotics, transitioning to oral prior to discharge. Time Spent With Patient Total time spent: Total time spent caring for the patient today was 45 minutes. This includes time spent for the visit reviewing the chart, time spent during the visit, time spent after the visit and documentation and planning in coordination of care. Subjective Date Seen: 03/08/24 Interval history: Patient is seen with daughter at bedside this morning. Feeling better. More alert, initial altered mental status has cleared. Overnight, lost both IV access. A new IV has been placed for ongoing IV antibiotic therapy. Discussion with daughter and patient yesterday was goals of care. Patient continues to endorse ongoing rehab needs. Would like to continue with more aggressive IV antibiotic therapy for cellulitis. Is not currently interested in comfort cares. Yesterday, was reported by staff to decline sitting in a chair for dinner, rather wanting to stay in bed. She tells me she does not remember this. Plans to participate with therapies today. Exam Narrative: Exam Narrative: PHYSICAL EXAM General: Pleasant, conversant, NAD HEENT: Normocephalic, atraumatic, sclera white, EOMI, oral mucosa moist Cardiovascular: RRR, S1S2 Pulmonary: CTA bilaterally without rhonchi, rales, expiratory wheezes. No dyspnea on room air Abdominal: Soft, nondistended, NTTP Neurological: Alert, answering questions appropriately, cranial nerves intact, no focal findings Extremities: Bilateral lower extremity erythema, less bright than yesterday. Receding from skin pen line. No significant rubor. Skin: Warm, dry. Const: Vital Signs, click to edit/add: Vital Signs - 24 hr 03/07/24 11:11 03/07/24 15:00 03/07/24 15:00 Temperature 98.4 F Pulse Rate Pulse Rate [Pulse Oximeter] 73 73 Respiratory Rate 16 20 Blood Pressure [Le ft Arm] 131/57 L Pulse Oximetry 96 95 Oxygen Delivery Nc thod Room Air Room Air 03/07/24 15:00 03/07/24 15:00 03/07/24 21:00 Temperature 98.3 F 98 F Pulse Rate 81 Pulse Rate [Pulse Oximeter] 82 87 Respiratory Rate 20 20 Blood Pressure [Le ft Arm] 139/65 121/74 Pulse Oximetry 95 93 [facility] 03/07/24 23:13 03/07/24 23:40 03/07/24 23:40 Temperature 98.3 F Pulse Rate 81 Pulse Rate [Pulse Oximeter] 83 Respiratory Rate 18 18 Blood Pressure [Le ft Arm] 130/62 Pulse Oximetry 92 96 [facility] Room Air 03/08/24 05:46 03/08/24 07:35 03/08/24 07:35 Temperature 98.3 F 99.2 F Pulse Rate Pulse Rate [Pulse Oximeter] 80 77 Respiratory Rate 16 16 16 Blood Pressure [Le ft Arm] 111/46 L 120/52 L Pulse Oximetry 94 92 92 Oxygen Delivery Me thod Room Air Room Air Room Air 03/08/24 07:40 Temperature Pulse Rate 77 Pulse Rate [Pulse Oximeter] Respiratory Rate Blood Pressure [Le ft Arm] Pulse Oximetry Oxygen Delivery Me thod Labs Labs: Laboratory Results - last 24 hr 03/08/24 06:26 WBC 7.35 RBC 3.32 L Hgb 9.0 L Hct 29.5 L MCV 89 MCH 27 MCHC 31 L RDW Coeff of Rolo 16.0 H Plt Count 317 Neut % (Auto) 67.7 Lymph % (Auto) 19.9 L [place] % (Auto) 11.7 H Eos % (Auto) 0.3 Baso % (Auto) 0.4 Neut # (Auto) 4.98 Lymph # (Auto) 1.50 [place] # (Auto) 0.90 Eos # (Auto) 0.02 Baso # (Auto) 0.03 Abs Immat Gran (auto) 0.00 Imm/Tot Granulo (auto) 0.0 INR 1.90 H Sodium 141 Potassium 3.0 L Chloride 107 Carbon Dioxide 25 Anion Gap 9 BUN 23 Creatinine 0.8 Estimated Creat Clear 40.90 Estimated GFR 74 Glucose 98 Calcium 8.0 L
[2024-03-08] MEDS: SODIUM CHLORIDE 0.9 % (FLUSH) 10 ML SYRINGE 5 ML IVF ×2 (10:42→20:53)
[2024-03-08] MEDS: LORATADINE 10 MG TABLET PO (10:42)
[2024-03-08] MEDS: LACTOBACILLUS ACIDOPHILUS 1 TABLET 1 TAB PO ×2 (10:42→17:53)
[2024-03-08] MEDS: HYDROXYCHLOROQUINE 200 MG TABLET PO (11:28)
--- NOTE | 2024-03-08 14:22 | NUTR.NU ---
RDN with nutrition screen related to low oral intakes since admission. Patient admitted for sepsis and cellulitis. Past medical history includes but not limited to atrial fibrillation, RA, Immunosuppression, and frail status. Current weight 127lb 5oz; height 4ft 10in; BMI 26.6 kg/m2. Weight is down about 10 lbs within 180 days, however weight loss is not significant. Current diet is Regular. Meal intakes have varied since admit, from bites to 50% which is inadequate intake. Per MD report, patient recently have oral surgery and had all top teeth removed. She currently is not using dentures due to pain and is unable to chew tough/crunch foods. RDN visited with patient whom reports a good appetite despite lower intakes. She denied weight loss at this time. She attributes her lower intakes due to no top teeth and difficulty chewing. Reviewed soft and tender food options that would be appropriate for patient at this time. Patient accepted handout from [facility] related to minced and moist food texture that would be appropriate for patient to consume until dentures can be used. She accepted these materials. During visit, patient was struggling eating a quesadilla. Patient asked to reorder lunch to something easier to eat. RDN informed culinary services of patient's new order of baked potato with cheese, and asked for the baked potato to be mashed to make it easier for patient to scoop. Offered patient nutrition supplements to ensure adequate caloric and protein intake, however patient declined stating she does not like the taste of these. Patient had no questions or concerns at this time. RDN will continue to monitor and follow-up prn.
--- NOTE | 2024-03-08 14:41 | PC.PHA ---
Warfarin consult note: Reason for warfarin: Afib and hx DVT INR goal requested by the provider: 2-3 Most recent INR: 03/06/24 inr = 1.47, 03/07/24 inr = 1.56, 03/08/24 inr = 1.9 Usual home dose (if any): recent med list from [facility]: 1mg daily; [facility] anticoag note from 01/21/24: 3mg Mon, 1.5mg all other days Today's dose ordered: 1mg 03/06/24, 1.5mg 03/07/24, 1.5mg 03/08/24 Vitamin K given: none Comments: inr trending up to goal range, continue to monitor inr and dose daily
[2024-03-08] MEDS: WARFARIN 3 MG TABLET 1.5 MG PO (16:47)
[2024-03-09] MEDS: PIPERACILLIN/TAZOBACTAM 2.25 GM in 0.9 % SODIUM CHLORIDE Mini-bag 100 ML IVPB ×3 (00:03→11:36)
[2024-03-09] MEDS: ONDANSETRON ODT 4 MG TAB PO ×3 (00:03→11:36)
[2024-03-09 03:00] VITALS: BP 132/66; PULSE 95; RESP 18; TEMP 36.6; O2SAT 93
[2024-03-09 06:50] LABS: Hemoglobin* 8.3 gm/dL (12.0-16.0); Mean Corpuscular HGB Conc 30 gm/dL (32-36); Mean Corpuscular Hemoglobin 27 pg (26-34); Mean Corpuscular Volume 91 fL (80-100); Platelet Count* 276 K/uL (140-440); Red Blood Count 3.08 m/uL (4.00-5.20); White Blood Count* 6.53 K/uL (4.50-11.00)
[2024-03-09 06:58] LABS: INR 1.66 (0.91-1.10); Prothrombin Time 20.8 Seconds
[2024-03-09 07:01] LABS: Slide Review Reflex No
[2024-03-09 07:02] LABS: Chloride* 110 mmol/L (96-114); Potassium* 3.5 mmol/L (3.6-5.1); Sodium* 140 mmol/L (135-149)
[2024-03-09 07:05] LABS: Anion Gap 5 mEq/L (7-15); Blood Urea Nitrogen* 22 mg/dL (7-30); Carbon Dioxide* 25 mmol/L (20-32); Creatinine* 0.8 mg/dL (0.5-1.5); Est. Creatinine Clearance* 41.77; Estimated Glomerular Filt Rate 74 ml/min
[2024-03-09 07:06] LABS: Calcium* 7.8 mg/dL (8.4-10.6); Glucose* 92 mg/dL (60-115)
--- NOTE | 2024-03-09 07:21 | PC.NURSE ---
Pt alert and oriented to self and place. Afebrile and vitally stable. Pt denies pain, chest pain, SOB and N/V. Pts orellana is patent and draining. IV patent. ?Pt?s BLE extremities are light red and warm, redness is receding from outline.??
[2024-03-09 07:51] VITALS: BP 110/51; PULSE 65; PULSE 95; RESP 18; TEMP 36.6; O2SAT 93
[2024-03-09 08:02] LABS: Hemoglobin* 8.6 gm/dL (12.0-16.0)
[2024-03-09] MEDS: POTASSIUM CHLORIDE 10 MEQ CAPSULE ER PO (08:54)
[2024-03-09] MEDS: MAGNESIUM OXIDE 400 MG TABLET PO (08:54)
[2024-03-09] MEDS: LEVOTHYROXINE 25 MCG TABLET PO (08:54)
[2024-03-09] MEDS: GABAPENTIN 600 MG TABLET 1200 MG PO (08:54)
[2024-03-09] MEDS: LORATADINE 10 MG TABLET PO (08:55)
[2024-03-09] MEDS: HYDROCODONE-ACETAMIN 5-325 MG 1 TAB PO (08:55)
[2024-03-09] MEDS: METOPROLOL SUCCINATE (XL) 25 MG TAB PO (08:55)
[2024-03-09] MEDS: LACTOBACILLUS ACIDOPHILUS 1 TABLET 1 TAB PO ×2 (08:55→11:36)
[2024-03-09] MEDS: predniSONE 10 MG TABLET PO (08:55)
[2024-03-09] MEDS: buPROPion XL 150 MG TABLET PO (08:55)
[2024-03-09] MEDS: OMEPRAZOLE 20 MG CAPSULE DR PO (08:55)
[2024-03-09 09:25] VITALS: PULSE 79
[2024-03-09 11:00] VITALS: BP 112/85; PULSE 85; RESP 18; O2SAT 95
--- NOTE | 2024-03-09 11:31 | PM.DS1 ---
DS: Providers Provider Date Seen: 03/09/24 Date of admission: 03/06/24 11:09 Primary care physician: Prakash Moore MD Admitting Clinician: Nick Garcia MD Consults: 03/06/24 11:40 Consult to Furnace Setter [CONS] Routine Comment: Reason for Consult:: Discharge Planning Needs 03/07/24 11:40 Consult to Occupational Therapy [CONS] Routine Comment: Reason(s) for OT Consult:: Evaluate and Treat Any Restrictions?:: No Restrictions Consult to Physical Therapy [CONS] Routine Comment: Reason(s) for PT Consult:: Evaluate and Treat Any Restrictions?:: No Restrictions Attending Physician on discharge: MINAL Kelley, [facility] Date of Discharge: 03/09/24 DS: Diagnosis Discharge Diagnosis (1) Cellulitis: Status: Acute Problem details: - source of symptoms above, bilateral so also likely has an element of PVD contributing. Immunosuppressed - acute, recurrent. Has been on multiple oral antibiotics over the last several months Initiated on IV Zosyn and vancomycin. Vancomycin discontinued. Transition to oral doxycycline to be taken twice daily for 10 days, for a total of 14 day therapy given history of recurrences. Close outpatient follow-up with PCP. (2) Sepsis: Status: Resolved Problem details: RESOLVED - as evidenced by temperature 101.2, HR 107 - while BLE edema could represent PVD, symptoms of warmth and significant erythema + pain concerning for infectious process - Zosyn and Vancomycin (03/06/24) - has no desire for aggressive management or transfer, goals of care reviewed with Lavida and daughter (not yet ready for formal comfort cares on 03/07) (3) Chronic anticoagulation: Status: Acute Problem details: - Warfarin for a fib, also has h/o DVT. INRs have been subtherapeutic, goal 2-3. Continue on warfarin, next INR check tomorrow with close monitoring while on antibiotics. (4) Immunosuppression: Status: Acute Problem details: - chronic Prednisone and Hydroxychloroquine - continued - treated with 3 doses of IV steroid upon admission 03/06 given acute illness Continue home dose of prednisone and hydroxychloroquine. Close outpatient follow-up with PCP given recent illness and need for antibiotics. (5) Essential (primary) hypertension: Status: Acute Problem details: - blood pressure upon admission is on the lower side, holding Losartan, continue Metoprolol with holding parameters. Resume home medications on discharge (6) Elevated troponin: Status: Acute Problem details: - mildly elevated (0.07 ->0.10) on admission - no chest pain or dyspnea - defers TTE or further workup given goals of care (7) Anemia of chronic disease: Status: Chronic Problem details: Hemoglobin 9.0, baseline 10.2-11.8 over past year. Hemoglobin on day of discharge 8.6. No evidence of acute bleed. Did have a bowel movement without report of it being black or bloody. No other acute bleeding. Has been on IV Zosyn, so would consider hemolytic etiology. This has been discontinued. Recheck hemoglobin in next 2-3 days with PCP. Sooner if become symptomatic. (8) Hypokalemia: Status: Acute Problem details: Potassium 3.0, 40 mEq this morning, continue home dosing. Potassium 3.5 on day of discharge, continue b.i.d. dosing and recheck with PCP. DS: Summary Hospital Course Hospital Course: [age] year old female was admitted to the medical floor for IV antibiotics for recurrent bilateral lower extremity cellulitis with history of PVD. Course of care and details as noted above. Patient responded appropriately to IV antibiotics. Transition to oral antibiotics on discharge. Risk for ongoing recurrent episodes of cellulitis. Daughter involved in discussions for more palliative care's however patient is not interested at this time. Close outpatient follow-up with PCP. Will need recheck of INR, hemoglobin, potassium. Remainder of chronic medical comorbidities were monitored and managed with home medications. Status at Discharge Overall status at discharge: patient is progressing back to baseline Time Spent with Patient Time attestation: Total time spent providing and/or coordinating discharge services: Exam Narrative: Exam Narrative: PHYSICAL EXAM General: Pleasant, conversant, NAD Cardiovascular: RRR Pulmonary: No dyspnea Neurological: Alert, answering questions appropriately Skin: Warm, dry. Const: Vital Signs, click to edit/add: Vital Signs - 24 hr 03/08/24 15:33 03/08/24 15:53 03/08/24 15:53 Temperature 98.1 F Pulse Rate 83 Pulse Rate [Pulse Oximeter] 93 Respiratory Rate 18 18 Blood Pressure [Le ft Arm] 126/75 Pulse Oximetry 93 93 Oxygen Delivery Me thod Room Air Room Air 03/08/24 19:00 03/08/24 23:00 03/08/24 23:00 Temperature 98.5 F 98.5 F Pulse Rate Pulse Rate [Pulse Oximeter] 84 86 Respiratory Rate 20 18 18 Blood Pressure [Le ft Arm] 113/56 L 134/66 Pulse Oximetry 93 93 94 Oxygen Delivery Me thod Room Air Room Air Room Air 03/08/24 23:00 03/08/24 23:00 03/09/24 03:00 Temperature 97.8 F Pulse Rate 77 Pulse Rate [Pulse Oximeter] 86 95 Respiratory Rate 18 18 Blood Pressure [Le ft Arm] 132/66 Pulse Oximetry 93 Oxygen Delivery Me thod Room Air 03/09/24 07:51 03/09/24 07:51 03/09/24 07:51 Temperature 98 F Pulse Rate Pulse Rate [Pulse Oximeter] 95 65 Respiratory Rate 18 18 18 Blood Pressure [Le ft Arm] 110/51 L Pulse Oximetry 93 93 Oxygen Delivery Me thod Room Air Room Air 03/09/24 09:25 Temperature Pulse Rate 79 Pulse Rate [Pulse Oximeter] Respiratory Rate Blood Pressure [Le ft Arm] Pulse Oximetry Oxygen Delivery Me thod DS: Data Data Completed and Pending Completed studies during hospitalization: Procedures Inspection of Upper Intestinal Tract, Via Natural or Artificial Opening Endoscopic (03/23/23) Introduction of Other Gas into Respiratory Tract, Via Natural or Artificial Opening (03/23/23) Muslim of Cardiac Rhythm, Single (03/23/23) Transfusion of Nonautologous Red Blood Cells into Peripheral Vein, Percutaneous Approach (03/23/23) Labs on day of discharge: Labs from last 24 hours 03/09/24 03/09/24 07:48 06:24 WBC 6.53 RBC 3.08 L Hgb 8.6 L 8.3 L Hct 28.0 L MCV 91 MCH 27 MCHC 30 L Plt Count 276 INR 1.66 H Sodium 140 Potassium 3.5 L Chloride 110 Carbon Dioxide 25 Anion Gap 5 L BUN 22 Creatinine 0.8 Estimated Creat Clear 41.77 Estimated GFR 74 Glucose 92 Calcium 7.8 L Preliminary micro results at discharge 03/06/24 08:45 Blood Culture - Preliminary Blood NO GROWTH AFTER 72 HOURS Imaging Chest x-ray: Attestation: I have reviewed the pertinent imaging results. Radiologist's impression: No pneumothorax or pleural effusion. Lungs are clear. Aortic atherosclerosis and tortuosity. Borderline/mild enlargement of the cardiac silhouette. No evidence of pulmonary edema. Upper abdomen and osseous structures as imaged show no acute abnormality. IMPRESSION: No evidence of acute cardiopulmonary disease. Abdomen x-ray: Attestation: I have reviewed the pertinent imaging results. Radiologist's impression: Enlarged heart. Atherosclerotic changes of visible vessels. Demineralized osseous structures. Severe degenerative changes. Scoliosis. Postsurgical changes of the spine. Right hip arthroplasty. 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 Within the limitations of single-view portable supine abdomen radiography, there is no acute appearing GI finding. Impression: 1. No obvious acute GI finding by supine single-view portable abdominal radiography. 2. Incidental non GI findings as discussed above Additional Comments Additional comments: Due to EMR error, medication reconciliation on discharge is incorrect. Patient has been CONTINUED on all of her home medications. New medications at time of discharge include oral doxycycline. Discharge Plan Discharge Disposition: [facility] Discharge Location: [facility] Date of Admission: 03/06/24 11:09 Attending Provider on Discharge: Betty Amezquita Primary Care Provider: Prakash Moore Discharge Medications: New hydrocodone-acetaminophen 5-325 mg Tablet 1 tab PO DAILY Qty: 7 0RF doxycycline hyclate 100 mg capsule 100 mg PO BID Qty: 20 0RF doxycycline hyclate 100 mg tablet 100 mg PO BID Qty: 20 0RF hydrocodone-acetaminophen 5-325 mg tablet 1 tab PO DAILY PRN (Reason: pain) Qty: 7 0RF Discontinued melatonin 3 mg capsule 3 mg PO HS PRN bupropion HCl 150 mg tablet extended release 24 hr 150 mg PO DAILY Qty: 90 3RF furosemide 40 mg tablet 40 mg PO DAILY Qty: 90 3RF losartan 25 mg tablet 25 mg PO DAILY Qty: 90 3RF clobetasol 0.05 % lotion 1 applic topical BID PRN estradiol 0.01 % (0.1 mg/gram) cream 0.5 g vaginal Q7D clindamycin HCl 300 mg capsule 300 mg PO TID levothyroxine 25 mcg tablet 25 mcg PO DAILY loratadine 10 mg tablet 10 mg PO DAILY warfarin 1 mg tablet 1 mg PO DAILY cephalexin 500 mg capsule 500 mg PO 3XD magnesium oxide 400 mg (241.3 mg magnesium) tablet 400 mg PO DAILY Rx Instructions: AT 12NOON hydroxychloroquine 200 mg tablet 200 mg PO DAILY@1200 ondansetron 4 mg tablet,disintegrating 4 mg PO Q6H PRN (Reason: nausea and vomiting) gabapentin 400 mg capsule 1,200 mg PO BID Qty: 540 3RF prednisone 10 mg tablet 10 mg PO DAILY Qty: 90 1RF omeprazole 20 mg capsule,delayed release(DR/EC) 20 mg PO DAILY Qty: 90 1RF potassium chloride 10 mEq capsule, extended release 10 meq PO BID Qty: 60 2RF hydrocodone-acetaminophen 5-325 mg tablet 1 tab PO QDAY 30 Days Qty: 30 0RF metoprolol succinate 25 mg tablet extended release 24 hr 25 mg PO DAILY Qty: 90 0RF Discharge Orders: Discharge Order (Routine); Ordered 03/09/24 Ordered By: Betty Amezquita Activity Level: Activity as Tolerated and Other Activity Detail: Per PT/OT Discharge Diet: Regular Follow Up Appointments: [facility] [Outside] (Post hospital follow up 3-5 days with recheck hemoglobin) Prakash Moore MD [Primary Care Provider] - Forms: [facility] [place] Info Instructions Admit to: SNF Discharge Potential: Fair Length of Stay: <30 days Can use facility standing orders?: Yes Code Status: DNR/DNI TEDs: N/A Rehab Potential: Fair Therapy: Physical Therapy and Occupational Therapy Therapy Orders: Evaluate and Treat Oxygen: No Urinary Catheter: No Next INR: 03/10/2024 INR Goal: 2-3 Lab Orders: Recheck hemoglobin in 2-3 days Orders are good >30 days: No Signature: MINAL Kelley, PA-C [facility]
[2024-03-09] MEDS: HYDROXYCHLOROQUINE 200 MG TABLET PO (11:36)
--- NOTE | 2024-03-09 11:55 | REH.PT ---
PT eval orders received. Patient not seen today due to medical status per MD and RN. Will check status tomorrow.
--- NOTE | 2024-03-09 14:07 | PC.NURSE ---
Nursing Care Hours: 0390-1027 Pt this shift calm and cooperative, alert and oriented. No c/o pain. VSS. Bandage on L glute CDI. IV started leaking during infusion. Hospitalist ok'd for IV to be dc'd, pt going home on PO ABX today. Nurse to nurse given over the phone to [facility]. EMS transfer, pt left in stable condition.
--- NOTE | 2024-03-09 14:15 | PC.SOCIAL ---
Discharge planning: Pt is able to discharge to [facility] today for short-term rehab. Pt and her daughter were notified. Pt will be transporting via non-emergent EMS which pt's daughter agreed to payment of yesterday(03/08/24) over the phone when this worker updated her later in the afternoon about pt being accepted to [facility] for today. Non-emergent EMS is scheduled for 12:30pm pick-up. forming process worker notified Alysia at [facility] of this time. Non-emergent EMS will cost $100.00($85.00 for pick-up and then $5.00 per mile/[facility] is three miles from the hospital/85+[id number]=492). Pre-admission screening was completed and sent to Alysia at [facility] via secure email. [id number]. Discharge orders were also secure emailed to Aylsia at [facility]. forming process worker also gave the pt's daughter, Giselle, a copy of The Medicare Rights form and explained the appeal process for pt's discharge plan if they so desired. Pt and daughter are in agreement with the plan and have no plans to appeal. Social work to follow-up as needed.
== END 2024-03-09 12:28 | DRG 872 ==
LOC: ED 10:10 → MEDSURG 10:41
PROVIDERS: Physician Assistant; Admitting Provider Family Medicine; Emergency Provider Family Medicine; PCP Family Medicine; Visit Provider Family Medicine
DX: A41.9 Sepsis, unspecified organism (principal); L03.116 Cellulitis of left lower limb; L03.115 Cellulitis of right lower limb; D84.821 Immunodeficiency due to drugs; I42.0 Dilated cardiomyopathy; I48.91 Unspecified atrial fibrillation; Z79.01 Long term (current) use of anticoagulants; M32.9 Systemic lupus erythematosus, unspecified; E03.9 Hypothyroidism, unspecified; K21.9 Gastro-esophageal reflux disease without esophagitis; Z86.711 Personal history of pulmonary embolism; Z86.718 Personal history of other venous thrombosis and embolism; R79.89 Other specified abnormal findings of blood chemistry; Z79.52 Long term (current) use of systemic steroids; Z79.69 Long term (current) use of other immunomodulators and immunosuppressants; E87.6 Hypokalemia; D63.8 Anemia in other chronic diseases classified elsewhere; I11.0 Hypertensive heart disease with heart failure; I50.9 Heart failure, unspecified; G89.4 Chronic pain syndrome; F41.9 Anxiety disorder, unspecified; F32.A Depression, unspecified; E78.5 Hyperlipidemia, unspecified
CPT/HCPCS: 36415; 51701; 71045; 74018; 80048; 80053; 80076; 81001; 83605; 83880; 84484; 85018; 85025; 85027; 85610; 86140; 87040; 87081; 87631; 93005; 97110; 97116; 97162; 97165; 97530; 97535; 99284; 99285; 99291; A9270; J1720; J2270; J2543; J3372; J7030; J7512

== ENCOUNTER 2024-03-09 12:22 | Outpatient (CLI) | payer MEDICARE, BC, SELFPAY ==
--- OUTSIDE RECORDS SUMMARY | 2024-03-21 02:15 | XMS_ITS | Continuity of Care Document ---
Author Organization [facility] Address [address] [place] [address] Phone Care Team Providers Care Hospital Admitting Clerk Name Role Phone Chase Snowden MD [...] Seg Office/Outpatient Visit,Est, Mod 2017 Office[place]Outpatient [place], [facility]/Outpatient Visit,Est, Mod 2011 Postop Followup Visit Remove Lumbar Spine Lamina, 1 Seg Pa Assist Remove Lumbar Spine Lamina, 1 Seg Office/Outpatient Visit,New, Mod 2011 X-Ray Exam Lwr Spine, Min 4 Views Advance Directives Directive Yes / No Effective Date File Name No Information Encounters Encounter Description Practice Location Reason(s) For Visit Diagnoses Date Provider Providers Copied on Encounter [facility], [address] [place] [address], [id number], [place] tel:[phone] No Information 1 Sp Stone. [facility], [address] [place] [address], [id number], . [phone] [facility], [address] [place] [address], [id number], [place] tel:[phone] [facility] Arthrodesis status 1 No Information Office/Outpa tient Visit,Est, Mod [facility], [address] [place] [address], [id number], [place] tel:[phone] [facility] [place] No Information 1 No Information Referring Provider: Prakash Mccauley, [facility] [address] [place], [address]. tel:[phone] Office/Outpa tient Visit,Est, Mod [facility], [address] [place] [address], [id number], [place] tel:[phone] [facility] Arthrodesis status 0 Sp Stone. [facility], [address] [place] [address], [id number], [place]. tel:[phone] Referring Provider: Prakash Mccauley, [facility] [address] [place], [address]. tel:[phone] Office/Outpa tient Visit,Est, Mod [facility], [address] [place] [address], [id number], [place] tel:[phone] [facility] Kyphosis 0 Sp Stone. [facility], [address] [place] [address], [id number], [place]. tel:[phone] Referring Provider: Prakash Mccauley, [facility] [address] [place], [address]. tel:[phone] Office/Outpa tient Visit,Est, Low [facility], [address], [place], [id number], [place] tel:[phone] [facility] Arthrodesis status Sp Stone. [facility], [address] [place], [address], [id number], [place]. tel:[phone] Referring Provider: Prakash Mccauley, [facility] [address] [place], [address]. tel:[phone] Office/Outpa tient Visit,Est, Low [facility], [address], [place], [place], [id number], [place] tel:[phone] [facility] Encounter for other specified surgical aftercare Sp Stone. [facility], [address] [place] [address], [address], [id number], [place]. tel:[phone] Referring Provider: Prakash Mccauley, [facility] [address] [place], [address]. tel:[phone] [facility], [address] [place] [address], [id number], [place] tel:[phone] [facility] Encounter for other specified surgical aftercare Sp Stone. [facility], [address] [place], [address], [id number], [place]. tel:[phone] Referring Provider: Prakash Mccauley, [facility] [address] [place], [address]. tel:[phone] [facility], [address], [place], [id number], [place] tel:[phone] [facility] Encounter for other specified surgical aftercare Sp Stone. [facility], [address], [address], [id number], [place]. tel:[phone] Referring Provider: Prakash Mccauley, [facility] [address] [place], [address]. tel:[phone] [facility], [address], [place], [place], [id number], [place] tel:[phone] [facility] No Information Chris Meneses. [facility], [address], [place], [address], [place]. tel:[phone] Referring Provider: Prakash Mccauley, [facility] [address] [place], [address]. tel:[phone] [facility], [address], [place], [place], [id number], [place] tel:[phone] [facility] No Information Sp Stone. [facility], [address] [place] [address], Ernesto [address] [place] [address], [id number], [place]. tel:[phone] Referring Provider: Prakash Mccauley, [facility] [address] [place], [address]. tel:[phone] Office/Outpa tient Visit,Est, Mod [facility], [address] [place] [address], [id number], [place] tel:[phone] [facility] [place] Spinal stenosis, cervical region Sp Stone. [facility], [address], [facility] [address], [place], [place], [id number], [place]. tel:[phone] Referring Provider: Prakash Mccauley, [facility] [address] [place], [address]. tel:[phone] Office/Outpa tient Visit,New, Mod [facility], [address], [place], [id number], [place] tel:[phone] [facility] [place] Postlaminect jasmine kyphosisSpin al stenosis, cervical regionArthro desis status No Information Referring Provider: Prakash Mccauley, [facility] [address] [place], [address]. tel:[phone] Office/Outpa tient Visit,Est, Mod Z [facility], [address], [place], [address], [place] tel:[phone] [facility] No Information 2 No Information Referring Provider: Prakash Mccauley, [facility] [address] [place], [address]. tel:[phone] Z [facility], [address], [place], [address], [place] tel:[phone] [facility] No Information 2 No Information Referring Provider: Prakash Mccauley, [facility] [address] [place], [address]. tel:[phone] Z [facility], [address] [facility] [address], [place], [address], [place] tel:[phone] [facility] No Information No Information Referring Provider: Prakash Mccauley, [facility] [address] [place], [address]. tel:[phone] Z [facility], [address] [facility] [address], [place], [address], [place] tel:[phone] [facility] [place] LUPUS ERYTHEMATOSU SOsteopeniaA nxietyGERDCA TARACT NOS No Information Office/Outpa tient Visit,New, Mod Z [facility], [address], [place], [address], [place] tel:[phone] [facility] No Information No Information Referring Provider: Prakash Mccauley, [facility] [address] [place], [address]. tel:[phone] Family History Family Member Type Diagnosis Age At Onset Mother Problem (finding) hypothyroidism Father Problem (finding) Cancer, unknown Mother Problem (finding) hypertension Problem (finding) Family history of prost ate cancer Payers Payer name Insurance type Covered republican ID Avaa angus(s) [facility] [id number] Medicare [facility] [id number] 1 Social History Type Description Quantity Date [...]
--- OUTSIDE RECORDS SUMMARY | 2024-03-21 02:16 | XMS_ITS | Clinical Summary ---
Author Organization [facility] Address [place], [place] [address] Care Team Providers Care Associate Field Service Engineer Name Role Phone Prakash Moore MD Primary Care Provider [phone] Allergies Active Allergy Reactions Criticality Noted Date [...] once daily. Active MULTIVITS W-FE,OTHER MIN (PEDIATRIC [id number] ORAL) Take by mouth once daily. Active [...] Encounters Date Type Department Care Team Description 03/10/2024 Lab Requisition [facility] [phone] Isiah Nye MD 01/26/2024 3:15 PM CDT Office Visit [facility] [address] [place] [address] Saran Arias DPM Follow Up (Right foot ulcer, 2 week follow up) 01/26/2024 Travel 01/11/2024 1:30 PM CDT Office Visit [facility] [address] [place] [address] Saran Arias DPM Ulcer (Follow up-right foot) 01/11/2024 Travel 01/06/2024 Telephone [facility] [address] [place] [address] Saran Arias DPM Anticoagulation (BPA Ciprofloxacin and Warfarin) 01/06/2024 Telephone [facility] [address] [facility] [address] Saran Arias, DPMk Foot Problem (PAINFUL MEDICATION ) 01/04/2024 1:30 PM CDT Office Visit [facility] [address] [place] [address] Saran Arias, DPMk Follow Up (Right ulcer check) 01/04/2024 Travel 12/31/2023 Telephone [facility] [address] [facility] [place] [address] Saran Arias DPM Questions 12/31/2023 Telephone [facility] [address] [facility] [place] [address] Saran Arias DPM Anticoagulation (BPA: CIPROFLOXACIN ) 12/31/2023 Orders Only [facility] [address] [place] [place] [address] Saran Arias DPM <No scans attached> 12/28/2023 2:30 PM CDT Office Visit [facility] [address] [place] [place] [address] Saran Arias DPMk Ulcer (Follow up-right foot) 12/28/2023 Travel from Last 3 Months Immunizations Name [...] T Respiratory Rate 16 05/24/2020 3:38 PM CRACKER AND COOKIE MACHINE OPERATOR Oxygen Saturation 94% 01/26/2024 3:11 PM CDT Inhaled Oxygen Concentration - - Weight 63.5 kg (140 lb) 05/24/2020 3:38 PM CRACKER AND COOKIE MACHINE OPERATOR Height 143.5 cm (4' 8.5) 09/21/2017 4:21 PM CDT Body Mass Index 30.83 09/21/2017 4:21 PM CDT Plan of Treatment Upcoming Encounters Date Type Department Care Team (Late st Contact Info) Description 03/22/2024 2:15 PM CRACKER AND COOKIE MACHINE OPERATOR Office Visit [facility] [address] [place] [address] Saran Arias DPM [address] [place] [address] Health Maintenance Due Date Last Done Comments [...] 2018 COVID-19 vaccine series ( - season) Influenza for age 65+ 01/09/2024 02/12/2011 Medical Devices Implanted Type Area Research Neuropsychologist Device Identifier Shelf Expiration Date Model / Serial / Lot [id number] 1-4mm 30cc Medtronic Chips Canclls Freeze Dried Implanted:Qty: 1 on 09/23/2017 by Chase Snowden MD at [facility] Explanted:at [facility] (Quantity not on file) N/A: Spine Medtronic Spine/Ortho 09/30/2021 [id number]# / [id number] / Plate Ti Occipital 50mm Implanted:Qty: 1 on 09/23/2017 by Chase Snowden MD at [facility] N/A: Spine 04.161.001 / / Description:PLATE TI OCCIPIT AL 50MM Screw Occipital Ti 4.5 X 8 Implanted:Qty: 1 on 09/23/2017 by Chase Snowden MD at [facility] N/A: Spine 04.601.108 / / Description:SCREW OCCIPITAL TI 4.5 X 8 Screw Occipital Ti 4.5 X 10 Implanted:Qty: 1 on 09/23/2017 by Chase Snowden MD at [facility] N/A: Spine 04.601.110 / / Description:SCREW OCCIPITAL TI 4.5 X 10 Screw Cerv Post 4.5x14mm Synapse Va Canncls Titnm Implanted:Qty: 1 on 09/23/2017 by Chase Snowden MD at [facility] N/A: Spine 04.614.214 / / Description:SCREW CERV POST 4.5X14MM SYNAPSE VA CANNCLS TITNM Mushtaq Pre-Bent 3.1d167kd Titnm - [id number] Implanted:Qty: 2 on 09/23/2017 by Chase Snowden MD at [facility] N/A: Spine J And J Depuy Spine 04.161.032 # / / Set Screw Cerv Axon - [id number] Implanted:Qty: 2 on 09/23/2017 by Chase Snowden MD at [facility] N/A: Spine J And J Depuy Spine 406.104# / / Screw Cerv Post 4x10mm Synapseva Canncls Titnm - [id number] Implanted:Qty: 1 on 09/23/2017 by Chase Snowden MD at [facility] N/A: Spine J And J Depuy Spine 04.614.110 # / / Screw Cerv Post 4x12mm Synapseva Canncls Titnm - [id number] Implanted:Qty: 2 on 09/23/2017 by Chase Snowden MD at [facility] N/A: Spine J And J Depuy Spine 04.614.112 # / / Screw Cerv Post 4.5x10mm Synapse Va Canncls Titnm - [id number] Implanted:Qty: 1 on 09/23/2017 by Chase Snowden MD at [facility] N/A: Spine J And J Depuy Spine 04.614.210 # / / Screw Cerv Post 4.5x26mm Synapse Va Canncls Titnm - [id number] Implanted:Qty: 1 on 09/23/2017 by Chase Snowden MD at [facility] N/A: Spine J And J Depuy Spine 04.614.226 # / / Screw Cerv Post 4.5x28mm Synapse Va Canncls Titnm - [id number] Implanted:Qty: 3 on 09/23/2017 by Chase Snowden MD at [facility] N/A: Spine J And J Depuy Spine 04.614.228 # / / Set Screw Cerv Synapse - [id number] Implanted:Qty: 9 on 09/23/2017 by Chase Snowden MD at [facility] N/A: Spine J And J Depuy Spine 04.614.508 # / / Procedures Procedure Name Priority Date/Time Associated Diagnosis Comments RED CELL MORPHOLOGY Routine 03/14/2024 1 0:52 AM CRACKER AND COOKIE MACHINE OPERATOR Acute on chronic right heart failure (HC) Anemia, unspecified PLATELET ESTIMATE Routine 03/14/2024 10: 52 AM CRACKER AND COOKIE MACHINE OPERATOR Acute on chronic right heart failure (HC) Anemia, unspecified CBC WITH AUTO DIFFERENTIAL Routine 03/14/2024 10:52 AM CRACKER AND COOKIE MACHINE OPERATOR Acute on chronic right heart failure (HC) Anemia, unspecified BASIC METABOLIC PANEL Routine 03/14/2024 10:52 AM CRACKER AND COOKIE MACHINE OPERATOR Acute on chronic right heart failure (HC) Anemia, unspecified CBC WITH AUTO DIFFERENTIAL Routine 03/14/2024 10:52 AM CRACKER AND COOKIE MACHINE OPERATOR Acute on chronic right heart failure (HC) Anemia, unspecified CARBA-R TESTING Routine 12/28/2023 2:44 PM CDT Ulcer of right foot, 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) Cellulitis of right foot AEROBIC BACTERIAL CULTURE, STAIN Routine 12/28/2023 2:44 PM CDT Ulcer of right foot, 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) Cellulitis of right foot from Last 3 Months Results * (ABNORMAL) CBC WITH AUTO DIFFERENTIAL (03/14/2024 10:52 AM [facility]) WHITE BLOOD COUNT 9.3 4.5 - 11.0 thou/cu mm 03/14/2024 1:29 PM [facility] RED BLOOD COUNT 3.89(L) 4.00 - 5.20 mil/cu mm 03/14/2024 1:29 PM [facility] HEMOGLOBIN 10.3(L) 12.0 - 16.0 g/dL 03/14/2024 1:29 PM [facility] HEMATOCRIT 35.0 33.0 - 51.0 % 03/14/2024 1:29 PM [facility] MCV 90 80 - 100 fL 03/14/2024 1:29 PM [facility] MCH 26.5 26.0 - 34.0 pg 03/14/2024 1:29 PM [facility] MCHC 29.4(L) 32.0 - 36.0 g/dL 03/14/2024 1:29 PM [facility] RDW 16.5(H) 11.5 - 15.5 % 03/14/2024 1:29 PM [facility] PLATELET COUNT 386 140 - 440 thou/cu mm 03/14/2024 1:29 PM [facility] MPV 11.5(H) 6.5 - 11.0 fL 03/14/2024 1:29 PM [facility] % NEUT 60.7 % 03/14/2024 1:29 PM [facility] % LYMPH 26.1 % 03/14/2024 1:29 PM [facility] % MONO 11.2 % 03/14/2024 1:29 PM [facility] % EOS 1.7 % 03/14/2024 1:29 PM [facility] % BASO 0.3 % 03/14/2024 1:29 PM [facility] ABSOLUTE NEUTROPHILS 5.7 1.7 - 7.0 thou/cu mm 03/14/2024 1:29 PM [facility] ABSOLUTE LYMPHOCYTES 2.4 0.9 - 2.9 thou/cu mm 03/14/2024 1:29 PM [facility] ABSOLUTE MONOCYTES 1.0(H) <0.9 thou/cu mm 03/14/2024 1:29 PM [facility] ABSOLUTE EOSINOPHILS 0.2 <0.5 thou/cu mm 03/14/2024 1:29 PM [facility] ABSOLUTE BASOPHILS 0.0 <0.3 thou/cu mm 03/14/2024 1:29 PM [facility] Blood BLOOD SPECIMEN / Unknown Butterfly / Unknown 03/14/2024 10:52 AM CRACKER AND COOKIE MACHINE OPERATOR 03/14/2024 11:56 AM CRACKER AND COOKIE MACHINE OPERATOR Isiah Nye MD HEMATOLOGY Performing Organization Address [facility]/ZIP Co de Phone Number [facility] [address] [place] [address] * (ABNORMAL) RED CELL MORPHOLOGY (03/14/2024 10:52 AM CRACKER AND COOKIE MACHINE OPERATOR) [facility] ELLIPTOCYTES Few 03/14/2024 1:29 PM [facility] SCHISTOCYTES Few 03/14/2024 1:29 PM [facility] RBC COMMENT Present(A ) RBC morphology appears normal, RBC morphology within normal limits for newborns. 03/14/2024 1:29 PM [facility] Blood BLOOD SPECIMEN / Unknown Butterfly / Unknown 03/14/2024 10:52 AM CRACKER AND COOKIE MACHINE OPERATOR 03/14/2024 11:56 AM CRACKER AND COOKIE MACHINE OPERATOR Isiah Nye MD HEMATOLOGY Performing Organization Address [facility]/ZIP Co de Phone Number [facility] [address] [place] [address] * (ABNORMAL) PLATELET ESTIMATE (03/14/2024 10:52 AM CRACKER AND COOKIE MACHINE OPERATOR) Pathologist [facility] PLATELET ESTIMATE Platelets are clumped and appear adequate in number(A) Adequate, No estimate 03/14/2024 1:29 PM [facility] Blood BLOOD SPECIMEN / Unknown Butterfly / Unknown 03/14/2024 10:52 AM CRACKER AND COOKIE MACHINE OPERATOR 03/14/2024 11:56 AM CRACKER AND COOKIE MACHINE OPERATOR Isiah Nye MD HEMATOLOGY [facility] [address] [place] [address] * (ABNORMAL) BASIC METABOLIC PANEL (03/14/2024 10:52 AM CRACKER AND COOKIE MACHINE OPERATOR) [facility] SODIUM 144 136 - 145 mmol/L 03/14/2024 12:20 PM [facility] POTASSIUM 3.9 3.5 - 5.1 mmol/L 03/14/2024 12:20 PM [facility] CHLORIDE 104 98 - 107 mmol/L 03/14/2024 12:20 PM [facility] CO2,TOTAL 24 22 - 29 mmol/L 03/14/2024 12:20 PM [facility] ANION GAP 16 5 - 18 03/14/2024 12:20 PM [facility] GLUCOSE 128(H) 70 - 99 mg/dL 03/14/2024 12:20 PM [facility] CALCIUM 8.9 8.8 - 10.4 mg/dL 03/14/2024 12:20 PM [facility] Comment: Reference ranges for this test were updated on 03/14/2024 to reflect our healthy population more accurately. Reference range changes are not retroactively applied to results, but previous results using the same methodology can be interpreted in the context of the new reference range. BUN 14 8 - 23 mg/dL 03/14/2024 12:20 PM [facility] CREATININE 0.84 0.50 - 0.90 mg/dL 03/14/2024 12:20 PM [facility] BUN/CREAT RATIO 17 10 - 20 12:20 PM [facility] eGFR 70(L) >90 mL/min/1. 73m2 03/14/2024 12:20 PM CRACKER AND COOKIE MACHINE OPERATOR [facility] Comment:As of 2021, eG FR is calculated by the CKD-EPI creatinine equation without race adjustment. ??eGFR can be influenced by muscle mass, exercise, and diet. ??The reported eGFR is an estimation only and is only applicable if the renal function is stable. Blood BLOOD SPECIMEN / Unknown Butterfly / Unknown 03/14/2024 10:52 AM CRACKER AND COOKIE MACHINE OPERATOR 03/14/2024 11:56 AM CRACKER AND COOKIE MACHINE OPERATOR Isiah Nye MD CHEMISTRY [facility] [address] [place] [address] * CARBA-R TESTING (12/28/2023 2:44 PM CDT) KPC (carbapenem-r esistance gene) NOT Detected NOT Detected, N/A 12/31/2023 7:40 AM CDT [facility] IMP (carbapenem-r esistance gene) NOT Detected NOT Detected, N/A 12/31/2023 7:40 AM CDT [facility] NDM (carbapenem-r esistance gene) NOT Detected NOT Detected, N/A 12/31/2023 7:40 AM CDT [facility] OXA-48 like (carbapenem-r esistance gene) NOT Detected NOT Detected, N/A 12/31/2023 7:40 AM CDT [facility] VIM (carbapenem-r esistance gene) NOT Detected NOT Detected, N/A 12/31/2023 7:40 AM CDT [facility] Organism Pseudomonas aeruginosa 12/31/2023 7:40 AM CDT [facility] Other (Other) Non-Blood / Unknown 12/28/2023 2:44 PM CDT 12/28/2023 3:00 PM CDT Narrative [facility] - 12/31/2023 7:40 AM CDT Decreased carbapenem susceptibility likely due to changes in porin expression and/or efflux pump mechanisms. Saran HUTSONM MICROBIOLOGY [facility] [address] [place] [address], * (ABNORMAL) AEROBIC BACTERIAL CULTURE, STAIN (12/28/2023 2:44 PM CDT) CULTURE RESULT(A) 01/01/2024 10:19 AM CDT [facility] CULTURE 2+ Staphylococcus aureus 01/01/2024 10:19 AM CDT [facility] CULTURE 1+ Pseudomonas aeruginosa 01/01/2024 10:19 AM CDT [facility] Comment:See resistance-gene testing (CARBA-R) CULTURE 1+ Mixed ata present 01/01/2024 10:19 AM CDT [facility] GRAM STAIN No Epithelial cells 01/01/2024 10:19 AM CDT [facility] GRAM STAIN No RBCs 01/01/2024 10:19 AM CDT [facility] GRAM STAIN No PMNs 01/01/2024 10:19 AM CDT [facility] GRAM STAIN No organisms seen 024 10:19 AM CDT [facility] Other (Other) Non-Blood / Unknown 12/28/2023 2:44 PM CDT 12/28/2023 3:00 PM CDT [facility] - 01/01/2024 10:19 AM CDT Mixed [...] MEROPENEM 8: R Saran Arias DPM MICROBIOLOGY [facility] 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
== END 2024-03-09 12:23 | disposition home or self-care (01) ==
LOC: AMB 03-21 02:14
PROVIDERS: PCP Family Medicine; Visit Provider Emergency Medicine Emergency Medical Services
DX: R53.1 Weakness (principal); R50.9 Fever, unspecified
CPT/HCPCS: A0425; A0428

== ENCOUNTER 2024-04-04 11:57 | Outpatient (REF) | payer MEDICARE, BC, SELFPAY ==
--- OUTSIDE RECORDS SUMMARY | 2024-04-04 11:59 | XMS_ITS | Continuity of Care Document ---
Author Organization [facility] Address [address] [place] [address] Phone Care Team Providers Care Gem Carver Name Role Phone Chase Snowden MD Unavailable [...] Providers Copied on Encounter [facility], [address] [place] [address], [id number], [place] tel:[phone] No Information 1 Sp Stone. [facility] [place], [address] [place] [address], [id number], . [phone] [facility], [address] [place] [address], [id number], [place] tel:[phone] [facility] Arthrodesis status 1 No Information Office/Outpa tient Visit,Est, Mod [facility], [address] [place] [address], [id number], [place] tel:[phone] [facility] No Information 1 No Information Referring Provider: Prakash Mccauley, [facility] [address] [place], [address]. tel:[phone] Office/Outpa tient Visit,Est, Mod [facility], [address] [place] [address], [id number], [place] tel:[phone] [facility] Arthrodesis status 0 Sp Stone. [facility] [place], [address] [place] [address], [id number], [place]. tel:[phone] Referring Provider: Prakash Mccauley, [facility] [address] [place], [address]. tel:[phone] Office/Outpa tient Visit,Est, Mod [facility], [address] [place] [address], [id number], [place] tel:[phone] [facility] Kyphosis 0 Sp Stone. [facility] [place], [address] [place] [address], [id number], [place]. tel:[phone] Referring Provider: Prakash Mccauley, [facility] [address] [place], [address]. tel:[phone] Office/Outpa tient Visit,Est, Low [facility], [address], [place], [id number], [place] tel:[phone] [facility] Arthrodesis status Sp Stone. [facility] [place], [address], [address], [id number], [place]. tel:[phone] Referring Provider: Prakash Mccauley, [facility] [address] [place], [address]. tel:[phone] Office/Outpa tient Visit,Est, Low [facility], [address], [place], [place], [id number], [place] tel:[phone] [facility] Encounter for other specified surgical aftercare Sp Stone. [facility] [place], [address] [place] [address], [address], [id number], [place]. tel:[phone] Referring Provider: Prakash Mccauley, [facility] [address] [place], [address]. tel:[phone] [facility], [address] [place] [address], [id number], [place] tel:[phone] [facility] Encounter for other specified surgical aftercare Sp Stone. [facility] [place], [address], [address], [id number], [place]. tel:[phone] Referring Provider: Prakash Mccauley, [facility] [address] [place], [address]. tel:[phone] [facility], [address], [place], [id number], [place] tel:[phone] [facility] Encounter for other specified surgical aftercare Sp Stone. [facility] [place], [address], [address], [id number], [place]. tel:[phone] Referring Provider: Prakash Mccauley, [facility] [address] [place], [address]. tel:[phone] [facility], [address], [place], [place], [id number], [place] tel:[phone] [facility] No Information Chris Meneses. [facility], [address], [place], [address], [place]. tel:[phone] Referring Provider: Prakash Mccauley, [facility] [address] [place], [address]. tel:[phone] [facility], [address], [place], [place], [id number], [place] tel:[phone] [facility] No Information Sp Stone. [facility] [place], [address] [place] [address], Ernesto [address] [place] [address], [id number], [place]. tel:[phone] Referring Provider: Prakash Mccauley, [facility] [address] [place], [address]. tel:[phone] Office/Outpa tient Visit,Est, Mod [facility], [address] [place] [address], [id number], [place] tel:[phone] [facility] Spinal stenosis, cervical region Sp Stone. [facility] [place], [address], [facility] [address], [place], [place], [id number], [place]. tel:[phone] Referring Provider: Prakash Mccauley, [facility] [address] [place], [address]. tel:[phone] Office/Outpa tient Visit,New, Mod [facility], [address], [place], [id number], [place] tel:[phone] [facility] Postlaminect jasmine kyphosisSpin al stenosis, cervical regionArthro desis status No Information Referring Provider: Prakash Mccauley, [facility] [address] [place], [address]. tel:[phone] Office/Outpa tient Visit,Est, Mod Z [facility], [address], [place], [address], [place] tel:[phone] [facility] No Information 2 No Information Referring Provider: Prakash Mccauley, [facility] [address] [place], [address]. tel:[phone] Z [facility], [address], [place], [address], [place] tel:[phone] [facility] No Information 2 No Information Referring Provider: Prakash Mccauley, [facility] [address] [place], [address]. tel:[phone] Z [facility], [address] [facility] [address], [place], [address], [place] tel:[phone] [facility] No Information No Information Referring Provider: Prakash Mccauley, [facility] [address] [place], [address]. tel:[phone] Z [facility], [address] [facility] [address], [place], [address], [place] tel:[phone] [facility] LUPUS ERYTHEMATOSU SOsteopeniaA nxietyGERDCA TARACT NOS No Information Office/Outpa tient Visit,New, Mod Z [facility], [address], [place], [address], [place] tel:[phone] [facility] No Information No Information Referring Provider: Prakash Mccauley, [facility] [address] [place], [address]. tel:[phone] Family History Family Member Type Diagnosis Age At Onset Mother Problem (finding) hypothyroidism Father Problem (finding) Cancer, unknown Mother Problem (finding) hypertension Problem (finding) Family history of prost ate cancer Payers Payer name Insurance type Covered alliance party ID Avaa angus(s) [facility] [id number] Medicare [facility] [id number] 1 Social History Type Description Quantity Date [...]
--- OUTSIDE RECORDS SUMMARY | 2024-04-04 11:59 | XMS_ITS | Clinical Summary ---
Author Organization [facility] Address [place], [place] [address] Care Team Providers Care [employer] Name Role Phone Prakash Moore MD Primary Care Provider [phone] Allergies Active Allergy Reactions Criticality Noted Date [...] once daily. Active MULTIVITS W-FE,OTHER MIN (PEDIATRIC [id number] ORAL) Take by mouth once daily. Active [...] Department Care Team Description 03/10/2024 Lab Requisition [facility] [phone] Isiah Nye MD 01/26/2024 3:15 PM CDT Office Visit [facility] [address] [place] [address] Saran Arias DPM Follow Up (Right foot ulcer, 2 week follow up) 01/26/2024 Travel 01/11/2024 1:30 PM CDT Office Visit [facility] [address] [place] [address] Saran Arias DPM Ulcer (Follow up-right foot) 01/11/2024 Travel 01/06/2024 Telephone [facility] [address] [place] [address] Saran Arias DPM Anticoagulation (BPA Ciprofloxacin and Warfarin) 01/06/2024 Telephone [facility] [address] [facility] [address] Saran Arias DPM Foot Problem (PAINFUL MEDICATION ) 01/04/2024 1:30 PM CDT Office Visit [facility] [address] [place] [address] Saran Arias DPM Follow Up (Right ulcer check) 01/04/2024 Travel from Last 3 Months Immunizations Name [...] 75 01/26/2024 3:11 PM CDT Temperature 36.5 C (97.7 F) 07/14/2023 2:35 PM PROP CUTTER Respiratory Rate 16 05/24/2020 3:38 PM PROP CUTTER Oxygen Saturation 94% 01/26/2024 3:11 PM CDT Inhaled Oxygen Concentration - - Weight 63.5 kg (140 lb) 05/24/2020 3:38 PM PROP CUTTER Height 143.5 cm (4' 8.5) 09/21/2017 4:21 PM CDT Body Mass Index 30.83 09/21/2017 4:21 PM CDT Plan of Treatment Upcoming Encounters Date Type Department Care Team (Late st Contact Info) Description 04/26/2024 1:45 PM PROP CUTTER Office Visit [facility] [address] [facility] [place] [address] Saran Arias DPM [address] [place] [address] Health Maintenance Due Date Last Done Comments [...] 01/09/2024 02/12/2011 Medical Devices Implanted Type Area Right Of Way Appraiser Device Identifier Shelf Expiration Date Model / Serial / Lot [id number] 1-4mm 30cc Medtronic Chips Canclls Freeze Dried Implanted:Qty: 1 on 09/23/2017 by Chase Snowden MD at [facility] Explanted:at [facility] (Quantity not on file) N/A: Spine Medtronic Spine/Ortho 09/30/2021 [id number] / [id number] / Plate Ti Occipital 50mm Implanted:Qty: 1 on 09/23/2017 by Chase Snowden MD at [facility] N/A: Spine 04.161.001 / / Description:PLATE TI OCCIPIT AL 50MM Screw Occipital Ti 4.5 X 8 Implanted:Qty: 1 on 09/23/2017 by Chase Snowden MD at [facility] N/A: Spine 04.601.108 / / Description:SCREW OCCIPITAL TI 4.5 X 8 Screw Occipital Ti 4.5 X 10 Implanted:Qty: 1 on 09/23/2017 by Chase Snowden MD at [facility] N/A: Spine 04.601.110 / / Description:SCREW OCCIPITAL TI 4.5 X 10 Screw Cerv Post 4.5x14mm Synapse Va Canncls Titnm Implanted:Qty: 1 on 09/23/2017 by Chase Snowden MD at [facility] N/A: Spine 04.614.214 / / Description:SCREW CERV POST 4.5X14MM SYNAPSE VA CANNCLS TITNM Mushtaq Pre-Bent 3.5m933gk Titnm - [id number] Implanted:Qty: 2 on 09/23/2017 by Chase Snowden MD at [facility] N/A: Spine J And J Depuy Spine 04.161.032 # / / Set Screw Cerv Axon - [id number] Implanted:Qty: 2 on 09/23/2017 by Chase Snowden MD at [facility] N/A: Spine J And J Depuy Spine 406.104# / / Screw Cerv Post 4x10mm Synapseva Canncls Titnm - [id number] Implanted:Qty: 1 on 09/23/2017 by Chase Snowden MD at [facility] N/A: Spine J And J Depuy Spine 04.614.110 # / / Screw Cerv Post 4x12mm Synapseva Canncls Titnm - [id number] Implanted:Qty: 2 on 09/23/2017 by Chase Snowden MD at [facility] N/A: Spine J And J Depuy Spine 04.614.112 # / / Screw Cerv Post 4.5x10mm Synapse Va Canncls Titnm - [id number] Implanted:Qty: 1 on 09/23/2017 by Chase Snowden MD at [facility] N/A: Spine J And J Depuy Spine 04.614.210 # / / Screw Cerv Post 4.5x26mm Synapse Va Canncls Titnm - [id number] Implanted:Qty: 1 on 09/23/2017 by Chase Snowden MD at [facility] N/A: Spine J And J Depuy Spine 04.614.226 # / / Screw Cerv Post 4.5x28mm Synapse Va Canncls Titnm - [id number] Implanted:Qty: 3 on 09/23/2017 by Chase Snowden MD at [facility] N/A: Spine J And J Depuy Spine 04.614.228 # / / Set Screw Cerv Synapse - [id number] Implanted:Qty: 9 on 09/23/2017 by Chase Snowden MD at [facility] N/A: Spine J And J Depuy Spine 04.614.508 # / / Procedures Procedure Name Priority Date/Time Associated Diagnosis Comments RED CELL MORPHOLOGY Routine 03/14/2024 1 0:52 AM PROP CUTTER Acute on chronic right heart failure (HC) Anemia, unspecified PLATELET ESTIMATE Routine 03/14/2024 10: 52 AM PROP CUTTER Acute on chronic right heart failure (HC) Anemia, unspecified CBC WITH AUTO DIFFERENTIAL Routine 03/14/2024 10:52 AM PROP CUTTER Acute on chronic right heart failure (HC) Anemia, unspecified BASIC METABOLIC PANEL Routine 03/14/2024 10:52 AM PROP CUTTER Acute on chronic right heart failure (HC) Anemia, unspecified CBC WITH AUTO DIFFERENTIAL Routine 03/14/2024 10:52 AM PROP CUTTER Acute on chronic right heart failure (HC) Anemia, unspecified from Last 3 Months Results * (ABNORMAL) CBC WITH AUTO DIFFERENTIAL (03/14/2024 10:52 AM PROP CUTTER) WHITE BLOOD COUNT 9.3 4.5 - 11.0 thou/cu mm 03/14/2024 1:29 PM [facility] RED BLOOD COUNT 3.89(L) 4.00 - 5.20 mil/cu mm 03/14/2024 1:29 PM [facility] HEMOGLOBIN 10.3(L) 12.0 - 16.0 g/dL 03/14/2024 1:29 PM [facility] HEMATOCRIT 35.0 33.0 - 51.0 % 03/14/2024 1:29 PM [facility] MCV 90 80 - 100 fL 03/14/2024 1:29 PM [facility] MCH 26.5 26.0 - 34.0 pg 03/14/2024 1:29 PM [facility] MCHC 29.4(L) 32.0 - 36.0 g/dL 03/14/2024 1:29 PM [facility] RDW 16.5(H) 11.5 - 15.5 % 03/14/2024 1:29 PM [facility] PLATELET COUNT 386 140 - 440 thou/cu mm 03/14/2024 1:29 PM [facility] MPV 11.5(H) 6.5 - 11.0 fL 03/14/2024 1:29 PM [facility] % NEUT 60.7 % 03/14/2024 1:29 PM [facility] % LYMPH 26.1 % 03/14/2024 1:29 PM [facility] % MONO 11.2 % 03/14/2024 1:29 PM [facility] % EOS 1.7 % 03/14/2024 1:29 PM [facility] % BASO 0.3 % 03/14/2024 1:29 PM [facility] ABSOLUTE NEUTROPHILS 5.7 1.7 - 7.0 thou/cu mm 03/14/2024 1:29 PM [facility] ABSOLUTE LYMPHOCYTES 2.4 0.9 - 2.9 thou/cu mm 03/14/2024 1:29 PM [facility] ABSOLUTE MONOCYTES 1.0(H) <0.9 thou/cu mm 03/14/2024 1:29 PM [facility] ABSOLUTE EOSINOPHILS 0.2 <0.5 thou/cu mm 03/14/2024 1:29 PM [facility] ABSOLUTE BASOPHILS 0.0 <0.3 thou/cu mm 03/14/2024 1:29 PM [facility] Blood BLOOD SPECIMEN / Unknown Butterfly / Unknown 03/14/2024 10:52 AM PROP CUTTER 03/14/2024 11:56 AM PROP CUTTER Isiah Nye MD HEMATOLOGY [facility] [address] [place] [address] * (ABNORMAL) RED CELL MORPHOLOGY (03/14/2024 10:52 AM PROP CUTTER) ELLIPTOCYTES Few 03/14/2024 1:29 PM [facility] SCHISTOCYTES Few 03/14/2024 1:29 PM [facility] RBC COMMENT Present(A ) RBC morphology appears normal, RBC morphology within normal limits for newborns. 03/14/2024 1:29 PM [facility] Blood BLOOD SPECIMEN / Unknown Butterfly / Unknown 03/14/2024 10:52 AM PROP CUTTER 03/14/2024 11:56 AM PROP CUTTER Isiah Nye MD HEMATOLOGY Performing Organization Address City/[facility]/ZIP Co de Phone Number [facility] [address] [place] [address] * (ABNORMAL) PLATELET ESTIMATE (03/14/2024 10:52 AM PROP CUTTER) [facility] PLATELET ESTIMATE Platelets are clumped and appear adequate in number(A) Adequate, No estimate 03/14/2024 1:29 PM [facility] Blood BLOOD SPECIMEN / Unknown Butterfly / Unknown 03/14/2024 10:52 AM PROP CUTTER 03/14/2024 11:56 AM PROP CUTTER Isiah Nye MD HEMATOLOGY Performing Organization Address [facility]/ZIP Co de Phone Number [facility] [address] [place] [address] * (ABNORMAL) BASIC METABOLIC PANEL (03/14/2024 10:52 AM PROP CUTTER) [facility] SODIUM 144 136 - 145 mmol/L 03/14/2024 12:20 PM [facility] POTASSIUM 3.9 3.5 - 5.1 mmol/L 03/14/2024 12:20 PM [facility] CHLORIDE 104 98 - 107 mmol/L 03/14/2024 12:20 PM [facility] CO2,TOTAL 24 22 - 29 mmol/L 03/14/2024 12:20 PM [facility] ANION GAP 16 5 - 18 03/14/2024 12:20 PM [facility] GLUCOSE 128(H) 70 - 99 mg/dL 03/14/2024 12:20 PM [facility] CALCIUM 8.9 8.8 - 10.4 mg/dL 03/14/2024 12:20 PM [facility] Comment: Reference ranges for this test were updated on 03/14/2024 to reflect our healthy population more accurately. Reference range changes are not retroactively applied to results, but previous results using the same methodology can be interpreted in the context of the new reference range. BUN 14 8 - 23 mg/dL 03/14/2024 12:20 PM [facility] CREATININE 0.84 0.50 - 0.90 mg/dL 03/14/2024 12:20 PM [facility] BUN/CREAT RATIO 17 10 - 20 12:20 PM [facility] eGFR 70(L) >90 mL/min/1. 73m2 03/14/2024 12:20 PM [facility] Comment:As of 2021, eG FR is calculated by the CKD-EPI creatinine equation without race adjustment. eGFR can be influenced by muscle mass, exercise, and diet. The reported eGFR is an estimation only and is only applicable if the renal function is stable. Blood BLOOD SPECIMEN / Unknown Butterfly / Unknown 03/14/2024 10:52 AM PROP CUTTER 03/14/2024 11:56 AM PROP CUTTER Isiah Nye MD CHEMISTRY [facility] [address] [place] [address] from Last 3 Months Additional Health Concerns Infection Onset Date Last Indicated TRANSACTIONAL ATTORNEY 12/28/2023 12/28/2023 Advance Directives * Full Code (Latest Code Status on File) Date Activated Date Inactivated Comments 09/23/2017 7:47 PM 09/28/2017 12:30 PM Care Teams [employer] Relationship Specialty Start Date End Date Prakash Moore MD [address] [facility] [place] [phone] PCP - General Family Practice 09/20/17
[2024-04-04 13:02] LABS: Basophils Absolute Auto 0.04 K/uL (0.00-0.30); Basophils Percent Auto 0.5 % (0.0-3.0); Eosinophils Percent Auto 1.3 % (0.0-7.0); Hematocrit 37.1 % (33.0-51.0); Immature Granulocytes Abs Auto 0.01 K/uL (0.00-0.30); Immature Granulocytes Pct Auto 0.1 %; Lymphocytes Absolute Auto 1.76 K/uL (0.90-2.90); Mean Corpuscular HGB Conc 30 gm/dL (32-36); Mean Corpuscular Hemoglobin 26 pg (26-34); Mean Corpuscular Volume 88 fL (80-100); Monocytes Percent Auto 9.9 % (0.0-11.0); Neutrophils Absolute Auto 4.97 K/uL (1.7-7.0); Neutrophils Percent Auto 65.2 % (42.0-72.0); Platelet Count* 226 K/uL (140-440); RDW Coefficient of Variation % 16.7 % (11.5-15.5); Red Blood Count 4.24 m/uL (4.00-5.20); White Blood Count* 7.64 K/uL (4.50-11.00)
[2024-04-04 13:03] LABS: Slide Review Reflex No
[2024-04-04 13:25] LABS: INR 4.59 (0.91-1.10); Prothrombin Time 47.2 Seconds
== END 2024-04-04 11:58 | disposition home or self-care (01) ==
LOC: NPINS 11:57
PROVIDERS: PCP Family Medicine; Visit Provider Nurse Practitioner Gerontology
DX: I48.91 Unspecified atrial fibrillation (principal)
CPT/HCPCS: 85025; 85610

== ENCOUNTER 2024-04-24 10:41 | Outpatient (REF) | payer MEDICARE, BC, SELFPAY ==
[2024-04-24 11:06] LABS: INR 1.76 (0.91-1.10); Prothrombin Time 21.7 Seconds
== END 2024-04-24 10:42 | disposition home or self-care (01) ==
LOC: NPINS 10:41
PROVIDERS: PCP Family Medicine; Visit Provider Nurse Practitioner Gerontology
DX: I48.91 Unspecified atrial fibrillation (principal)
CPT/HCPCS: 85610

== ENCOUNTER 2024-05-01 12:02 | Outpatient (REF) | payer MEDICARE, BC, SELFPAY ==
[2024-05-01 12:42] LABS: Basophils Absolute Auto 0.02 K/uL (0.00-0.30); Basophils Percent Auto 0.2 % (0.0-3.0); Eosinophils Percent Auto 2.5 % (0.0-7.0); Hematocrit 35.2 % (33.0-51.0); Hemoglobin* 10.5 gm/dL (12.0-16.0); Immature Granulocytes Abs Auto 0.01 K/uL (0.00-0.30); Immature Granulocytes Pct Auto 0.1 %; Lymphocytes Absolute Auto 2.16 K/uL (0.90-2.90); Lymphocytes Percent Auto 26.8 % (20-44); Mean Corpuscular HGB Conc 30 gm/dL (32-36); Mean Corpuscular Hemoglobin 26 pg (26-34); Mean Corpuscular Volume 88 fL (80-100); Monocytes Percent Auto 9.8 % (0.0-11.0); Neutrophils Absolute Auto 4.88 K/uL (1.7-7.0); Neutrophils Percent Auto 60.6 % (42.0-72.0); Platelet Count* 291 K/uL (140-440); Red Blood Count 4.01 m/uL (4.00-5.20); White Blood Count* 8.06 K/uL (4.50-11.00)
[2024-05-01 13:00] LABS: Slide Review Reflex No
[2024-05-01 13:02] LABS: Chloride* 109 mmol/L (96-114); Potassium* 4.3 mmol/L (3.6-5.1); Sodium* 140 mmol/L (135-149)
[2024-05-01 13:05] LABS: Anion Gap 5 mEq/L (7-15); Carbon Dioxide* 26 mmol/L (20-32)
[2024-05-01 13:06] LABS: Blood Urea Nitrogen* 23 mg/dL (7-30); Calcium* 8.8 mg/dL (8.4-10.6); Creatinine* 0.8 mg/dL (0.5-1.5); Estimated Glomerular Filt Rate 74 ml/min; Glucose* 68 mg/dL (60-115)
== END 2024-05-01 12:03 | disposition home or self-care (01) ==
LOC: NPINS 12:02
PROVIDERS: PCP Family Medicine; Visit Provider Nurse Practitioner Gerontology
DX: I50.9 Heart failure, unspecified (principal); D64.9 Anemia, unspecified; E03.9 Hypothyroidism, unspecified
CPT/HCPCS: 80048; 84443; 85025

== ENCOUNTER 2024-10-23 13:55 | Outpatient (CLI) | payer MEDICARE, BC, SELFPAY | END 2024-10-23 13:56 | disposition home or self-care (01) | LOC: WOUND 14:08 | PROVIDERS: PCP Family Medicine; Visit Provider Physician Assistant Surgical | DX: L89.893 Pressure ulcer of other site, stage 3 (principal); Z79.01 Long term (current) use of anticoagulants; Z86.718 Personal history of other venous thrombosis and embolism; Z79.60 Long term (current) use of unspecified immunomodulators and immunosuppressants | CPT/HCPCS: 11042; G0463 ==

== ENCOUNTER 2024-10-30 14:39 | Outpatient (CLI) | payer MEDICARE, BC, SELFPAY | END 2024-10-30 14:40 | disposition home or self-care (01) | LOC: WOUND 14:39 | PROVIDERS: PCP Family Medicine; Visit Provider Physician Assistant | DX: L89.893 Pressure ulcer of other site, stage 3 (principal); Z79.01 Long term (current) use of anticoagulants; Z86.718 Personal history of other venous thrombosis and embolism | CPT/HCPCS: 87070; 97597 ==

== ENCOUNTER 2024-11-06 13:24 | Outpatient (CLI) | payer MEDICARE, BC, SELFPAY | END 2024-11-06 13:25 | disposition home or self-care (01) | LOC: WOUND 13:25 | PROVIDERS: PCP Family Medicine; Visit Provider Physician Assistant | DX: L89.893 Pressure ulcer of other site, stage 3 (principal); L89.023 Pressure ulcer of left elbow, stage 3; Z86.718 Personal history of other venous thrombosis and embolism; Z79.01 Long term (current) use of anticoagulants | CPT/HCPCS: 97597; G0463 ==

== ENCOUNTER 2024-11-14 13:46 | Outpatient (CLI) | payer MEDICARE, BC, SELFPAY | END 2024-11-14 13:47 | disposition home or self-care (01) | LOC: WOUND 13:47 | PROVIDERS: PCP Family Medicine; Visit Provider Family Medicine | DX: L89.893 Pressure ulcer of other site, stage 3 (principal); Z86.718 Personal history of other venous thrombosis and embolism; Z79.01 Long term (current) use of anticoagulants | CPT/HCPCS: 11042 ==

== ENCOUNTER 2024-11-22 12:59 | Outpatient (CLI) | payer MEDICARE, BC, SELFPAY | END 2024-11-22 13:00 | disposition home or self-care (01) | LOC: WOUND 12:59 | PROVIDERS: PCP Family Medicine; Visit Provider Physician Assistant | DX: L89.893 Pressure ulcer of other site, stage 3 (principal); L89.023 Pressure ulcer of left elbow, stage 3; Z86.718 Personal history of other venous thrombosis and embolism; Z79.01 Long term (current) use of anticoagulants | CPT/HCPCS: 97597 ==

== ENCOUNTER 2024-11-28 13:40 | Outpatient (CLI) | payer MEDICARE, BC, SELFPAY | END 2024-11-28 13:41 | disposition home or self-care (01) | LOC: WOUND 13:41 | PROVIDERS: PCP Family Medicine; Visit Provider Nurse Practitioner Family | DX: L89.894 Pressure ulcer of other site, stage 4 (principal); Z86.718 Personal history of other venous thrombosis and embolism; Z79.01 Long term (current) use of anticoagulants; Z79.60 Long term (current) use of unspecified immunomodulators and immunosuppressants | CPT/HCPCS: 11042; 73630 ==

== ENCOUNTER 2024-11-28 14:36 | Outpatient (CLI) | payer MEDICARE, BC, SELFPAY ==
--- NOTE | 2024-11-28 15:00 | CRLHL7_ITS ---
For Patients: As a result of the Century Cures Act, medical imaging exams and procedure reports are released immediately into your electronic medical record. You may view this report before your referring provider. If you have questions, please contact your health care provider. Indication: Nonhealing wound Technique: Three views right foot Comparison: None Findings/Impression: There is lateral dislocation of the great toe at the MTP joint level. Adjacent soft tissue swelling with likely bandage, presumed site of the patient`s nonhealing wound. Note is made of prior amputation of the 2nd digit. Fragmentation at the middle phalanx of the 3rd digit. Some of this is likely chronic although an acute component of osteomyelitis would not be excluded at this level. Medial subluxation versus dislocation at the proximal interphalangeal joint of the 5th digit. Pes planus deformity. Atherosclerosis. Dictated by Koko Cobb MD @ 11/28/2024 3:19:03 PM (Electronically Signed)
== END 2024-11-28 14:37 | disposition home or self-care (01) ==
PROVIDERS: PCP Family Medicine; Visit Provider Nurse Practitioner Family
DX: L89.893 Pressure ulcer of other site, stage 3 (principal)
CPT/HCPCS: 73630

== ENCOUNTER 2024-12-05 13:39 | Outpatient (CLI) | payer MEDICARE, BC, SELFPAY | END 2024-12-05 13:40 | disposition home or self-care (01) | LOC: WOUND 13:40 | PROVIDERS: PCP Family Medicine; Visit Provider Nurse Practitioner Family | DX: L89.894 Pressure ulcer of other site, stage 4 (principal); M70.22 Olecranon bursitis, left elbow; Z86.718 Personal history of other venous thrombosis and embolism; Z79.01 Long term (current) use of anticoagulants; Z79.60 Long term (current) use of unspecified immunomodulators and immunosuppressants | CPT/HCPCS: 97597; G0463 ==

== ENCOUNTER 2024-12-12 13:44 | Outpatient (CLI) | payer MEDICARE, BC, SELFPAY | END 2024-12-12 13:45 | disposition home or self-care (01) | LOC: WOUND 13:46 | PROVIDERS: PCP Family Medicine; Visit Provider Nurse Practitioner Family | DX: L89.894 Pressure ulcer of other site, stage 4 (principal); Z86.718 Personal history of other venous thrombosis and embolism; Z79.01 Long term (current) use of anticoagulants; Z79.60 Long term (current) use of unspecified immunomodulators and immunosuppressants; M70.22 Olecranon bursitis, left elbow | CPT/HCPCS: G0463 ==

== ENCOUNTER 2024-12-14 12:36 | Outpatient (CLI) | payer MEDICARE, BC, SELFPAY ==
--- NOTE | 2024-12-14 13:00 | CRLHL7_ITS ---
For Patients: As a result of the Century Cures Act, medical imaging exams and procedure reports are released immediately into your electronic medical record. You may view this report before your referring provider. If you have questions, please contact your health care provider. Indication: Atherosclerosis with ulcer and noncompressible arteries on DEENA Comparison: None Technique: Routine duplex arterial examination of bilateral lower extremities including 2D and spectral analysis, and color Doppler imaging was performed. In addition, resting ankle-brachial indices were obtained. Findings: In the right lower extremity there are multiphasic waveforms in the common femoral artery, profunda femoral artery and superficial femoral artery. Biphasic waveforms in the popliteal, posterior tibial, anterior tibial and dorsalis pedis arteries. Monophasic waveform in the peroneal artery. Elevated velocity in the proximal femoral artery measuring 236 cm/second. In the left lower extremity there are multiphasic waveforms within the common femoral artery and profunda femoral artery. Triphasic waveforms in the proximal and distal femoral artery with monophasic waveform in the mid femoral artery. Elevated velocity in the proximal femoral artery measuring 164 cm/second and deep femoral artery measuring 167 cm/second. Triphasic waveform in the popliteal artery. Monophasic waveforms in the peroneal, posterior tibial, anterior tibial and dorsalis pedis arteries. Impression: Elevated velocities in the proximal femoral artery bilaterally, right greater than left, compatible with 50-75 percent stenosis of the right proximal femoral artery and 30-49 percent stenosis of the left proximal femoral artery. Monophasic waveforms in the left calf. Dictated by Jean-Pierre Francois MD @ 12/17/2024 7:51:35 PM (Electronically Signed)
== END 2024-12-14 12:37 | disposition home or self-care (01) ==
LOC: US 12:38
PROVIDERS: PCP Family Medicine; Visit Provider Nurse Practitioner Family
DX: I70.245 Atherosclerosis of native arteries of left leg with ulceration of other part of foot (principal); I70.203 Unspecified atherosclerosis of native arteries of extremities, bilateral legs; S81.809A Unspecified open wound, unspecified lower leg, initial encounter
CPT/HCPCS: 93926

== ENCOUNTER 2024-12-19 14:08 | Outpatient (CLI) | payer MEDICARE, BC, SELFPAY | END 2024-12-19 14:09 | disposition home or self-care (01) | LOC: WOUND 14:09 | PROVIDERS: PCP Family Medicine; Visit Provider Nurse Practitioner Family | DX: L89.894 Pressure ulcer of other site, stage 4 (principal); M70.22 Olecranon bursitis, left elbow; Z86.718 Personal history of other venous thrombosis and embolism; Z79.01 Long term (current) use of anticoagulants; Z79.60 Long term (current) use of unspecified immunomodulators and immunosuppressants | CPT/HCPCS: G0463 ==

== ENCOUNTER 2024-12-26 12:44 | Outpatient (CLI) | payer MEDICARE, BC, SELFPAY ==
--- NOTE | 2024-12-26 13:00 | CRLHL7_ITS ---
For Patients: As a result of the Century Cures Act, medical imaging exams and procedure reports are released immediately into your electronic medical record. You may view this report before your referring provider. If you have questions, please contact your health care provider. EXAM: MRI OF THE RIGHT FOOT, WITHOUT AND WITH IV CONTRAST CLINICAL INDICATION: Nonhealing ulceration. COMPARISON PLAIN FILMS: 11/28/2024. COMPARISON CROSS-SECTIONAL IMAGING STUDIES: None. TECHNICAL: Axial, sagittal and coronal T1, PD and STIR images precontrast. Postcontrast T1 weighted imaging with fat saturation. Contrast: Dotarem, 13 mL IV. FINDINGS: SOFT TISSUES JOINTS AND BONES: Medial dislocation of the great toe relative to the metatarsal head. Soft tissue thinning over the medial aspect of the 1st metatarsal head. Small ulceration at the plantar and medial margin of the 1st metatarsal head. There is focal cortical irregularity with moderate intramedullary edema and fatty marrow replacement at the plantar margin of the 1st metatarsal head. The involvement is focal and thin in the plantar region. No more diffuse intramedullary edema or fatty marrow replacement in the 1st metatarsal head. Differential considerations include reactive changes or changes of osteomyelitis. No adjacent subcutaneous abscess. No evidence for septic arthritis in the 1st MTP joint. Partial amputation of the 2nd toe at the level of the MTP joint. No fracture or contusion. Diffuse subcutaneous edema in the toes and foot. TENDONS AND MUSCLES: No tenosynovitis. Diffuse muscular atrophy and edema. IMPRESSION: 1. Ulceration at the plantar and medial margin of the 1st metatarsal head. Focal cortical and intramedullary changes in the plantar margin of the 1st metatarsal head. Findings are indeterminate and could be reactive or due to osteomyelitis. 2. No subcutaneous abscess or septic arthritis of the 1st MTP joint. 3. Medial dislocation of the great toe relative to the metatarsal head. 4. 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 5. Diffuse subcutaneous edema. 6. Diffuse muscular atrophy and edema. Dictated by Andi Gao MD @ 12/27/2024 4:09:53 PM (Electronically Signed)
== END 2024-12-26 12:45 | disposition home or self-care (01) ==
LOC: MRI 12:46
PROVIDERS: PCP Family Medicine; Visit Provider Nurse Practitioner Family
DX: L89.894 Pressure ulcer of other site, stage 4 (principal)
CPT/HCPCS: 73720; A9575

== ENCOUNTER 2024-12-26 14:20 | Outpatient (CLI) | payer MEDICARE, BC, SELFPAY | END 2024-12-26 14:21 | disposition home or self-care (01) | LOC: WOUND 14:21 | PROVIDERS: PCP Family Medicine; Visit Provider Nurse Practitioner Family | DX: L89.894 Pressure ulcer of other site, stage 4 (principal); Z79.01 Long term (current) use of anticoagulants; Z86.718 Personal history of other venous thrombosis and embolism; Z79.60 Long term (current) use of unspecified immunomodulators and immunosuppressants | CPT/HCPCS: 97597 ==

== ENCOUNTER 2025-01-02 13:54 | Outpatient (CLI) | payer MEDICARE, BC, SELFPAY | END 2025-01-02 13:55 | disposition home or self-care (01) | LOC: WOUND 13:54 | PROVIDERS: PCP Family Medicine; Visit Provider Nurse Practitioner Family | DX: L89.894 Pressure ulcer of other site, stage 4 (principal); Z86.711 Personal history of pulmonary embolism; Z79.01 Long term (current) use of anticoagulants; Z79.60 Long term (current) use of unspecified immunomodulators and immunosuppressants | CPT/HCPCS: G0463 ==

== ENCOUNTER 2025-01-09 14:36 | Outpatient (CLI) | payer MEDICARE, BC, SELFPAY | END 2025-01-09 14:37 | disposition home or self-care (01) | LOC: WOUND 14:37 | PROVIDERS: PCP Family Medicine; Visit Provider Nurse Practitioner Family | DX: L89.894 Pressure ulcer of other site, stage 4 (principal); L84 Corns and callosities; Z86.718 Personal history of other venous thrombosis and embolism; Z79.01 Long term (current) use of anticoagulants; Z79.60 Long term (current) use of unspecified immunomodulators and immunosuppressants | CPT/HCPCS: 11055 ==

== ENCOUNTER 2025-01-18 14:45 | Outpatient (REF) | payer MEDICARE, BC, SELFPAY ==
[2025-01-18 15:00] LABS: Hematocrit* 37.3 % (33.0-51.0); Hemoglobin* 10.6 gm/dL (12.0-16.0); Immature Granulocytes Pct Auto 0.1 %; Mean Corpuscular HGB Conc 28 gm/dL (32-36); Mean Corpuscular Hemoglobin 23 pg (26-34); Mean Corpuscular Volume 82 fL (80-100); RDW Coefficient of Variation % 19.5 % (11.5-15.5); Red Blood Count* 4.57 m/uL (4.00-5.20); White Blood Count* 11.28 K/uL (4.50-11.00)
[2025-01-18 15:08] LABS: Immature Granulocytes Abs Auto 0.00 K/uL (0.00-0.30); Lymphocytes Absolute Auto 2.60 K/uL (0.90-2.90); Slide Review Reflex No
[2025-01-18 17:09] LABS: Chloride* 105 mmol/L (96-114)
[2025-01-18 17:10] LABS: Potassium* 4.0 mmol/L (3.6-5.1); Sodium* 137 mmol/L (135-149)
[2025-01-18 17:12] LABS: Blood Urea Nitrogen* 28 mg/dL (7-30); Creatinine* 0.9 mg/dL (0.5-1.5); Estimated Glomerular Filt Rate 64 ml/min
[2025-01-18 17:13] LABS: Anion Gap 8 mEq/L (7-15); Calcium* 8.9 mg/dL (8.4-10.6); Carbon Dioxide* 24 mmol/L (20-32); Glucose* 69 mg/dL (60-115)
== END 2025-01-18 14:46 | disposition home or self-care (01) ==
LOC: NPINS 14:45
PROVIDERS: PCP Family Medicine; Visit Provider Nurse Practitioner Gerontology
DX: Z01.818 Encounter for other preprocedural examination (principal)
CPT/HCPCS: 80048; 85025

== ENCOUNTER 2025-01-30 14:19 | Outpatient (CLI) | payer MEDICARE, BC, SELFPAY | END 2025-01-30 14:20 | disposition home or self-care (01) | LOC: WOUND 14:19 | PROVIDERS: PCP Family Medicine; Visit Provider Nurse Practitioner Family | DX: Z09 Encounter for follow-up examination after completed treatment for conditions other than malignant neoplasm (principal); L89.894 Pressure ulcer of other site, stage 4; Z86.718 Personal history of other venous thrombosis and embolism; Z79.01 Long term (current) use of anticoagulants; Z79.60 Long term (current) use of unspecified immunomodulators and immunosuppressants | CPT/HCPCS: G0463 ==

== ENCOUNTER 2025-02-06 11:41 | Outpatient (REF) | payer MEDICARE, BC, SELFPAY ==
[2025-02-06 12:15] LABS: Chloride* 105 mmol/L (96-114)
[2025-02-06 12:16] LABS: Hematocrit* 33.5 % (33.0-51.0); Hemoglobin* 9.6 gm/dL (12.0-16.0); Immature Granulocytes Abs Auto 0.02 K/uL (0.00-0.30); Immature Granulocytes Pct Auto 0.2 %; Lymphocytes Absolute Auto 2.25 K/uL (0.90-2.90); Mean Corpuscular HGB Conc 29 gm/dL (32-36); Mean Corpuscular Hemoglobin 23 pg (26-34); Mean Corpuscular Volume 81 fL (80-100); Potassium* 4.0 mmol/L (3.6-5.1); RDW Coefficient of Variation % 19.2 % (11.5-15.5); Red Blood Count* 4.12 m/uL (4.00-5.20); Sodium* 137 mmol/L (135-149); White Blood Count* 9.53 K/uL (4.50-11.00)
[2025-02-06 12:18] LABS: Blood Urea Nitrogen* 17 mg/dL (7-30); Creatinine* 0.8 mg/dL (0.5-1.5); Estimated Glomerular Filt Rate 74 ml/min; Slide Review Reflex No
[2025-02-06 12:19] LABS: Anion Gap 6 mEq/L (7-15); Calcium* 8.9 mg/dL (8.4-10.6); Carbon Dioxide* 26 mmol/L (20-32); Glucose* 76 mg/dL (60-115)
--- OUTSIDE RECORDS SUMMARY | 2025-02-07 00:19 | XMS_ITS | Clinical Summary ---
Author Organization [facility] Address [address] [place] [id number] Care Team Providers Care Industrial Psychologist Name Role Phone Prakash Moore MD Primary Care Provider [phone] Allergies Active Allergy Reactions Criticality Noted Date Comments Adhesive Tape-Silicones Other - Describe In Comment Field 06/12/2016 skin tears Amitriptyline Confusion 06/22/2011 Severe disorientation Amoxicillin-Pot Clavulanate Diarrhea 09/21/2017 Bee Venom Protein (Honey Bee) Edema 09/20/2017 Penicillins Rash 04/01/2011 Tolerates cephalosporins Perphenazine Confusion 06/22/2011 Severe disorientation Sulfa (Sulfonamide Antibiotics) Rash 04/01/2011 Tricyclic Antidepressants And Tricyclic Compounds Confusion 06/22/2011 Severe disorientation Medications furosemide (LASIX) 40 mg tablet Take 40 mg by mouth every morning. 0 04/01/20 11 Active fexofenadine (AALIYAH ALLERGY) 180 mg tablet Take 1 tablet by mouth once daily with a meal. 0 04/01/20 11 Active magnesium oxide (MAG-OX 400) 400 mg tablet Take 400 mg by mouth once daily. Active ascorbic acid chewable (VITAMIN C) 500 mg tablet Take 500 mg by mouth once daily. Active MULTIVITS W-FE,OTHER MIN (PEDIATRIC [id number] ORAL) Take by mouth once daily. Active [...] 20 mg by mouth at bedtime. Active hydroxychloroquin e (PLAQUENIL) 200 mg tabletIndications :Other systemic lupus erythematosus with other organ involvement (HC) Take 1 tablet by mouth 2 times daily. 0 09/28/19 18 Active HYDROcodone-aceta minophen, 5-325 mg, (NORCO) per tabletIndications :Myelopathy, spondylogenic, cervical Take 1-2 tablets by mouth every 4 hours if needed for Pain (One tablet for pain level 3 to 6. Two tablets for pain level 7 to 10.) Max acetaminophen dose: 4000 mg in 24 hrs. 80 tablet 09/28/19 18 Active buPROPion (WELLBUTRIN XL) 150 mg Extended-Release tablet Take 1 Tablet by mouth once daily. 12/08/19 19 Active aspirin chewable 81 mg chewable tablet Chew 81 mg by mouth once daily. chew and swallow 06/27/19 22 Active calcium with vitamin D3 (OS-SUZETTE 500 + D) tablet Twice A Day Active famciclovir (FAMVIR) 500 mg tablet 02/12/20 21 Active methotrexate (RHEUMATREX) 2.5 mg tablet 08/27/19 22 Active levothyroxine (SYNTHROID) 25 mcg tablet Daily 04/23/20 20 Active sennosides (SENNA) 8.6 mg tablet Daily 08/26/19 22 Active fluconazole (DIFLUCAN) 150 mg tablet Take 150 mg by mouth once weekly. 05/17/19 24 Active loratadine (CLARITIN) 10 mg tablet Take 10 mg by mouth once daily. Active LORazepam (ATIVAN) 0.5 mg tab Take 0.5 mg by mouth. 04/06/20 Active mirtazapine (REMERON) 7.5 mg tablet Take 7.5 mg by mouth at bedtime. 04/30/20 23 Active ciprofloxacin (Cipro) 500 mg tabletIndications :skin and skin structure infection Take 1 Tablet (500 mg) by mouth two times daily. 14 Tablet 01/06/20 24 Active doxycycline (ADOXA) 100 mg tabletIndications :Cellulitis of right foot,Ulcer of right foot, 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) Take 1 Tablet (100 mg) by mouth two times daily. 20 Tablet 01/06/20 24 Active durable medical equipment (DME)Indications: Ulcer of right foot, 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) SQUARED TOE POST OP SHOE, SMALL, REF: [phone] 1 Each 10/19/19 Active medication order composToddicatdenver ns:Hallux valgus with bunions, right,Hammertoe of right foot Visco-gel Toe Spacers, Size Medium. 3 Each 12/21/19 Active Active Problems Problem Noted Date Diagnosed [...] Encounters Date Type Department Care Team Description 02/05/2025 Telephone [facility] [address] [facility] [place] [address] Saran Arias DPM Questions 01/23/2025 1:15 PM CDT Office Visit [facility] [address] [facility] [place] [address] Saran Arias DPM Follow Up (Left foot ulcer and bone infection) 01/23/2025 Travel 01/17/2025 Telephone [facility] [address] [facility] [place] [address] Saran Arias DPM insole 12/20/2024 Telephone [facility] [address] [facility] [address] Saran Arias DPM DME Supply (DME Supply) 12/11/[address] [facility] [address] [place] [address] Azucena Zaman NP <No scans attached> 11/15/2024 2:00 PM CDT Office Visit [facility] [address] [facility] [address] Saran Arias DPM Follow Up (Left foot ulcer) 11/15/2024 Travel from Last 3 Months Immunizations Immunization Administration Dates Next Due Influenza, IIV3 (Age [...] Paying Living Expenses Not on file 2021 Comments No Sex and Gender Information Value Date Recorded Sex Assigned at Not on file Legal Sex Female 8:16 AM [employer] Gender Identity Not on file Sexual Orientation Not on file Obstetrics History Last Filed Vital Signs Vital Sign Reading Time Taken Comments Blood Pressure 118/67 01/23/2025 1:05 PM CDT Pulse 78 01/23/2025 1:05 PM CDT Temperature 36.4 C (97.6 F) 04/26/2024 1:59 PM [employer] Respiratory Rate 16 05/24/2020 3:38 PM [employer] Oxygen Saturation 99% 01/23/2025 1:05 PM CDT Inhaled Oxygen Concentration - - Weight 63.5 kg (140 lb) 05/24/2020 3:38 PM [employer] Height 143.5 cm (4' 8.5) 09/21/2017 4:21 PM CDT Body Mass Index 30.83 09/21/2017 4:21 PM CDT Plan of Treatment Upcoming Encounters Date Type Department Care Team (Late st Contact Info) Description 02/12/2025 9:45 AM CDT Office Visit [facility] at [facility] [address] [place] [address] Saran Arias DPM [address] [place] [address] 02/14/2025 1:45 PM CDT Office Visit [facility] [address] [place] [address] Saran Arias DPM [address] [place] [address] 02/19/2025 1:00 PM CDT Office Visit [facility] [address] [place] [address] Renato Stephens MD [address] [address] 02/28/2025 2:00 PM CDT Office Visit [facility] [address] [place] [address] Saran Arias DPM [address] [place] [address] 03/28/2025 1:45 PM [employer] Office Visit [facility] [address] [place] [address] Saran Arias DPM [address] [place] [address] Health Maintenance Due Date Last Done Comments Tetanus booster 1954 Depression screening for age 12+ 1955 BMI (ht and wt on same day) for age 18+ 1961 Pneumococcal series for age 50+ (1 of 2 - PCV) 1962 Zoster (shingles) series for age 50+ (1 of 2) 1962 DEXA/DXA scan for age 65+ 2008 Medicare Wellness for age 65+ 2008 RSV vaccine for adults or (1 - 1-dose 75+ series) 2018 COVID-19 vaccine series (9 - Moderna risk season) 2025 02/14/2024, 06/15/2023, 10/22/2022, Additional history exists Influenza Vaccine (#1) 2025 02/12/2011 Hepatitis B series for 19+ Aged Out N o longer eligible based on patient's age to complete this topic Medical Devices Implanted Type Area Counter Tender Device Identifier Shelf Expiration Date Model / Serial / Lot [id number] 1-4mm 30cc Medtronic Chips Canclls Freeze Dried Implanted:Qty: 1 on 09/23/2017 by Chase Snowden MD at [facility] Explanted:at [facility] (Quantity not on file) N/A: Spine Medtronic Spine/Ortho 09/30/2021 [id number] / [id number] / Plate Ti Occipital 50mm Implanted:Qty: 1 on 09/23/2017 by Chase Snowden MD at [facility] N/A: Spine 04.161.001 / / Description:PLATE TI OCCIPIT AL 50MM Screw Occipital Ti 4.5 X 8 Implanted:Qty: 1 on 09/23/2017 by Chase Snowden MD at [facility] N/A: Spine 04.601.108 / / Description:SCREW OCCIPITAL TI 4.5 X 8 Screw Occipital Ti 4.5 X 10 Implanted:Qty: 1 on 09/23/2017 by Chase Snowden MD at [facility] N/A: Spine 04.601.110 / / Description:SCREW OCCIPITAL TI 4.5 X 10 Screw Cerv Post 4.5x14mm Synapse Va Canncls Titnm Implanted:Qty: 1 on 09/23/2017 by Chase Snowden MD at [facility] N/A: Spine 04.614.214 / / Description:SCREW CERV POST 4.5X14MM SYNAPSE VA CANNCLS TITNM Mushtaq Pre-Bent 3.3v875zt Titnm - [id number] Implanted:Qty: 2 on 09/23/2017 by Chase Snowden MD at [facility] N/A: Spine J And J Depuy Spine 04.161.032 # / / Set Screw Cerv Axon - [id number] Implanted:Qty: 2 on 09/23/2017 by Chase Snowden MD at [facility] N/A: Spine J And J Depuy Spine 406.104# / / Screw Cerv Post 4x10mm Synapseva Canncls Titnm - [id number] Implanted:Qty: 1 on 09/23/2017 by Chase Snowden MD at [facility] N/A: Spine J And J Depuy Spine 04.614.110 # / / Screw Cerv Post 4x12mm Synapseva Canncls Titnm - [id number] Implanted:Qty: 2 on 09/23/2017 by Chase Snowden MD at [facility] N/A: Spine J And J Depuy Spine 04.614.112 # / / Screw Cerv Post 4.5x10mm Synapse Va Canncls Titnm - [id number] Implanted:Qty: 1 on 09/23/2017 by Chase Snowden MD at [facility] N/A: Spine J And J Depuy Spine 04.614.210 # / / Screw Cerv Post 4.5x26mm Synapse Va Canncls Titnm - [id number] Implanted:Qty: 1 on 09/23/2017 by Chase Snowden MD at [facility] N/A: Spine J And J Depuy Spine 04.614.226 # / / Screw Cerv Post 4.5x28mm Synapse Va Canncls Titnm - [id number] Implanted:Qty: 3 on 09/23/2017 by Chase Snowden MD at [facility] N/A: Spine J And J Depuy Spine 04.614.228 # / / Set Screw Cerv Synapse - [id number] Implanted:Qty: 9 on 09/23/2017 by Chase Snowden MD at [facility] N/A: Spine J And J Depuy Spine 04.614.508 # / / Additional Health Concerns Infection Onset Date Last Indicated [facility] REPRESENTATIVE 12/28/2023 12/28/[id number] [facility] [place] [id number] [employer] [place] BLUE MR PB ONLY [employer] [place] [place] BLUE HB ONLY Advance Directives * Full Code (Latest Code Status on File) Date Activated Date Inactivated Comments 09/23/2017 7:47 PM 09/28/2017 12:30 PM Care Teams Industrial Psychologist Relationship Specialty Start Date End Date Prakash Moore MD [address] [facility] [place] [address] PCP - General Family Practice 09/20/17
== END 2025-02-06 11:42 | disposition home or self-care (01) ==
LOC: NPINS 11:41
PROVIDERS: PCP Family Medicine; Visit Provider Nurse Practitioner Gerontology
DX: Z01.818 Encounter for other preprocedural examination (principal)
CPT/HCPCS: 80048; 85025

== ENCOUNTER 2025-02-12 06:11 | Day surgery (SDC) | payer MEDICARE, BC, SELFPAY ==
[2025-02-12] VITALS (12 sets, daily range): BP systolic 147–185; BP diastolic 67–90; PULSE 85–95; RESP 16–24; TEMP 36.4–36.5; O2SAT 92–99; BMI 25.7
[2025-02-12] MEDS: BUPIVACAINE 0.25% 30 ML INJECTION (07:24)
--- NOTE | 2025-02-12 07:41 | SUR.OPER ---
PATIENT QUESTIONS ANSWERED SATISFACTORILY PREOPERATIVELY.? PATIENT BROUGHT TO OR #3 PER CART.? Patient positioned supine on OR #3 bed.? The perioperative?team supported arms bilaterally on arm boards.? Final approval of positioning by surgeon.
--- NOTE | 2025-02-12 10:57 | W.PODPROC_ITS ---
Date of Procedure: 02/12/25 Surgeon: Saran Arias DPM Pre-op Diagnosis: 1. Hallux valgus bunion right 2. 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 Hallux valgus bunion right 2. Nonhealing ulceration with underlying osteomyelitis right 1st metatarsal Type of Procedure: First metatarsal head resection right Indications: Patient has had ongoing issues with ulcerations to the right foot. She now has possible underlying osteomyelitis. 1st metatarsal head resection is recommended. This is be done under local anesthetic. I reviewed the procedure, recovery, expectation potential complications with the patient. These include but are not limited to: Poor wound healing, infection, potential need for future surgery, potential limb loss, deep venous thrombosis, pulmonary embolism and possible . She understands risks written consent was obtained. Site marked. Procedure Description: Patient brought the operating room placed supine position on the operating table. 0.25% Marcaine plain was injected into the right foot. She was then prepped and draped in sterile fashion. Standard time-out protocol followed. Right foot was exsanguinated the tourniquet inflated. Linear incision was made over the 1st metatarsal head right. Incision carried down the skin subcutaneous tissue. 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 Tophi and the metatarsal head were isolated freed up from surrounding tissue. Sagittal saw was used to transect the 1st metatarsal neck. The head was then removed along with the gouty tophi. Wound was thoroughly irrigated normal sterile saline. The proximal cut site was then beveled with a sagittal saw and edges rounded. Wound again irrigated. Fibular and tibial sesamoids are well displaced lateral and not in a weight-bearing area. They are imbedded in soft tissue and were left in place. Base of the proximal phalanx had normal appearance with no evidence of osteomyelitis. Wound was irrigated normal sterile saline. Tourniquet was released and bleeding vessels cauterized. Joint capsule and deep soft tissue was reapproximated with 4-0 Monocryl. Skin closed with 3-0 nylon. Sterile dressing was applied. She was transferred from OR to same-day surgery with vital signs stable vascular status intact. She tolerated the procedure and local anesthetic very well. She will be discharged per same- day surgery protocol. She will restart her Coumadin today. She is given Girard for pain. She is weight-bearing as tolerated. Anesthesia: local Hemostasis: ankle Estimated blood loss (mL): 2 Provider Operated C-arm: C-arm fluoroscopy operated by Saran Arias DPM, for 1st metatarsal head resection right foot. Two images obtained. Fluoroscopy time was 00.00.02. Specimens: specimen obtained, sent to pathology Disposition: same day
== END 2025-02-12 08:59 | disposition home or self-care (01) ==
PROVIDERS: PCP Family Medicine; Visit Provider Podiatrist
PROC: (CPT 28122; principal; 2025-02-12 07:15)
DX: M20.11 Hallux valgus (acquired), right foot (principal); M21.611 Bunion of right foot; L97.512 Non-pressure chronic ulcer of other part of right foot with fat layer exposed; M86.8X7 Other osteomyelitis, ankle and foot
CPT/HCPCS: 28122; 73620; 76000; J0665; J0690